=== PATIENT | male | born 1960 | race Caucasian/White ===

== ENCOUNTER → 2023-07-16 | Outpatient (CLI) | payer MEDICARE, OTHER ==
--- NOTE | 2023-07-16 13:34 | CT ---
EXAMINATION TYPE: CT chest wo con CT DLP: 548 mGycm, Automated exposure control for dose reduction was used. DATE OF EXAM: 07/16/2023 1:22 PM COMPARISON: None CLINICAL INDICATION:Male, 62 years old with history of I50.22 CHF; PHH, CHF TECHNIQUE: Multiple axial images were obtained through the chest. Sagittal and coronal reformats were created for review. Contrast used: mL of (None if empty) Oral contrast used: (None if empty) FINDINGS: LUNGS/ PLEURA: Bilateral pleural effusions no focal consolidation or pneumothorax. Atelectasis in the right middle lobe likely secondary to cardiomegaly and pleural effusions. Calcified body in the pleu ral space right lung. AIRWAY: Patent and unremarkable. HEART: The heart is mildly enlarged for size. MEDIASTINUM: No gross evidence of adenopathy. VASCULATURE: No aortic aneurysm. MUSCULOSKELETAL: No acute osseous abnormalities SOFT TISSUES/LYMPH NODES: Anasarca of the soft tissues. LOWER NECK: No significant findings. UPPER ABDOMEN: No significant findings. IMPRESSION: Anasarca, moderate right and small left pleural effusions with cardiomegaly. Correlate with serum BNP for congestive heart failure.
--- NOTE | 2023-07-16 14:49 | US ---
EXAMINATION TYPE: Pre-Operative Non-Invasive Evaluation of the hand for Potential Radial Artery Roberto villeda, Measurements only DATE OF EXAM: 07/16/2023 2:00 PM CLINICAL INDICATION: Male, 62 years old with history of I25.10 CAD, I50.22 CHF; Pre op cardiac surger y SIDE PERFORMED: Left TECHNIQUE: Radial artery is measured utilizing real time linear array sonography. Duplex Findings: Radial Artery: Color flow seen Measurements in mm, transverse view: Left Radial: Proximal: 2.5 x 2.3 mm Mid: 2.1 x 2.1 mm Distal: 2.2 x 1.9 mm IMPRESSION: 1. Bilateral GSV measurements listed above. 2. Performing surgeon to determine viability as conduit.
--- NOTE | 2023-07-16 14:50 | US ---
EXAMINATION TYPE: US carotid duplex BILAT DATE OF EXAM: 07/16/2023 COMPARISON: NONE CLINICAL INDICATION: Male, 62 years old with history of I25.10 CAD, I50.22 CHF; Pre op cardiac surger y TECHNIQUE: Carotid duplex ultrasound examination. Indirect Doppler criteria was utilized. FINDINGS: EXAM MEASUREMENTS: RIGHT: Peak Systolic Velocity (PSV) cm/sec ----- Right CCA: 66.4 ----- Right ICA: 72.9 ----- Right ECA: 130.2 ICA/CCA ratio: 1.1 RIGHT: End Diastole cm/sec ----- Right CCA: 13.4 ----- Right ICA: 23.2 ----- Right ECA: 10.7 LEFT: Peak Systolic Velocity (PSV) cm/sec ----- Left CCA: 57.6 ----- Left ICA: 66.3 ----- Left ECA: 85.2 ICA/CCA ratio: 1.2 LEFT: End Diastole cm/sec ----- Left CCA: 14.3 ----- Left ICA: 27.0 ----- Left ECA: 6.6 VERTEBRALS (direction of flow): Right Vertebral: Antegrade Left Vertebral: Antegrade Rhythm: Normal No significant stenosis . Mild atherosclerotic plaque. IMPRESSION: No significant hemodynamic stenosis. Criteria for Assigning % of Stenosis / Diameter reduction (Estimation based on the indirect measurements of the internal carotid artery velocities (ICA PSV). 1. Normal (no stenosis)=ICA PSV < 125 cm/s: ratio < 2.0: ICA EDV<40 cm/s. 2. Less than 50% stenosis=ICA PSV < 125 cm/s: ratio < 2.0: ICA EDV<40 cm/s. 3. 50 to 69% stenosis=ICA PSV of 125 to 230 cm/s: ration 2.0 ? 4.0: ICA EDV 40-100 cm/s. 4. Greater than 70% stenosis to near occlusion= ICA PSV > 230 cm/s: ratio > 4.0: ICA EDV > 100 cm/s. 5. Near occlusion= ICA PSV velocities may be low or undetectable: variable ratio and ICA EDV. 6. Total occlusion=unable to detect flow.
--- NOTE | 2023-07-16 15:49 | US ---
EXAMINATION TYPE: US vein mapping BILAT DATE OF EXAM: 07/16/2023 2:13 PM COMPARISON: NONE CLINICAL INDICATION: Male, 62 years old with history of I25.10 CAD,I50.22 CHF; Pre op cardiac surgery SIDE PERFORMED: Bilateral TECHNIQUE: Lower extremity saphenous vein is examined and measured utilizing real time linear array sonography. DUPLEX FINDINGS: Greater Saphenous: Color flow seen Lesser Saphenous: Color flow seen Measurements in mm: Right Greater Saphenous: Groin: 9.6 x 8.5 mm High Thigh: 7.1 x 6.7 mm Mid Thigh: 5.1 x 4.1 mm Above Knee: 4.3 x 3.7 mm Knee: 4.8 x 3.5 mm Below Knee: 4.4 x 3.7 mm Mid Calf: 5.2 x 3.4 mm At Ankle: 4.0 x 3.5 mm Left Greater Saphenous: Groin: 7.5 x 6.2 mm High Thigh: 6.3 x 6.3 mm Mid Thigh: 4.9 x 3.7 mm Above Knee: 3.2 x 3.2 mm Knee: 4.6 x 3.6 mm Below Knee: 3.9 x 3.1 mm Mid Calf: 3.8 x 2.9 mm At Ankle: 2.6 x 2.5 mm IMPRESSION: 1. Bilateral GSV measurements listed above. 2. Performing surgeon to determine viability as conduit.
--- NOTE | 2023-07-16 17:59 | CA ---
Transthoracic Echo Report Name: Wes Burgess Age: 62 Gender: M : 1960 Exam Date: 07/16/2023 14:35 Exam Location: [facility] Ht (in): 61 Wt (lb): 176 Ordering Physician: Everett Weller MD Attending/Referring Phys: Core Winding Operator Irasema Ernst RDCS Procedure CPT: Indications: I25.10 CAD Cardiac Hx: CAD Technical Quality: Fair Contrast 1: Total Dose (mL): Contrast 2: Total Dose (mL): MEASUREMENTS (Male / Female) Normal Values 2D ECHO LV Diastolic Diameter PLAX 5.0 cm 4.2 - 5.9 / 3.9 - 5.3 cm LV Systolic Diameter PLAX 4.5 cm IVS Diastolic Thickness 1.3 cm 0.6 - 1.0 / 0.6 - 0.9 cm LVPW Diastolic Thickness 1.3 cm 0.6 - 1.0 / 0.6 - 0.9 cm LV Relative Wall Thickness 0.5 RV Internal Dim ED PLAX 3.3 cm LA Systolic Diameter LX 3.7 cm 3.0 - 4.0 / 2.7 - 3.8 cm LV Diastolic Volume MOD BP 124.0 cm??? 67 - 155 / 56 - 104 cm??? LV Systolic Volume MOD BP 85.1 cm??? 22 - 58 / 19 - 49 cm??? LV Ejection Fraction MOD BP 31.4 % >= 55 % LV Cardiac Index MOD BP 1955.3 cm???/min???m??? LV Diastolic Volume MOD 4C 129.6 cm??? LV Systolic Volume MOD 4C 85.5 cm??? LV Ejection Fraction MOD 4C 34.1 % LV Cardiac Index MOD 4C 2221.1 cm???/min???m??? LV Diastolic Length 4C 8.5 cm LV Systolic Length 4C 7.6 cm LV Diastolic Volume MOD 2C 138.4 cm??? LV Systolic Volume MOD 2C 97.3 cm??? LV Ejection Fraction MOD 2C 29.7 % LV Cardiac Index MOD 2C 2066.1 cm???/min???m??? LV Diastolic Length 2C 7.5 cm LV Systolic Length 2C 7.4 cm LA Volume 61.9 cm??? 18 - 58 / 22 - 52 cm??? LA Volume Index 32.8 cm???/m??? 16 - 28 cm???/m??? M-MODE Aortic Root Diameter MM 3.3 cm MV E Point Septal Separation 2.1 cm AV Cusp Separation MM 2.0 cm DOPPLER AV Peak Velocity 93.0 cm/s AV Peak Gradient 3.5 mmHg MV Area PHT 5.7 cm??? MR Peak Velocity 403.9 cm/s MR Peak Gradient 65.3 mmHg Mitral E Point Velocity 85.8 cm/s Mitral A Point Velocity 51.3 cm/s Mitral E to A Ratio 1.7 MV Deceleration Time 132.3 ms MV E' Velocity 4.7 cm/s Mitral E to MV E' Ratio 18.4 TR Peak Velocity 358.5 cm/s TR Peak Gradient 51.4 mmHg Right Ventricular Systolic Press 62.0 mmHg FINDINGS Left Ventricle Left ventricular ejection fraction is estimated at 30-35 %. Mildly increased septal wall thickness. Severely increased left ventricular systolic volume. Severe hypokinesis of the apex, anterior wall and anterolateral wall. Right Ventricle Right ventricular dilatation. Severe pulmonary hypertension. Right ventricular systolic pressure estimated at 62 mm hg. Right Atrium Normal right atrial size. Left Atrium Mildly increased left atrial volume. Mildly increased left atrial area. Mitral Valve Structurally normal mitral valve. Mild to moderate mitral regurgitation. Mildly thickened leaflets Aortic Valve Trileaflet aortic valve.no aortic valve stenosis or regurgitation. Tricuspid Valve Structurally normal tricuspid valve. Moderate tricuspid regurgitation. Pulmonic Valve Structurally normal pulmonic valve. Mild pulmonic regurgitation. Pericardium No pericardial effusion. Aorta Normal size aortic root and proximal ascending aorta. CONCLUSIONS 1. Severely impaired left ventricle systolic function with segmental wall motion abnormality 2. Mild to moderate mitral was moderate tricuspid regurgitation and severe pulmonary hypertension Previewed by: Dr. Tutu Gallegos MD (Electronically Signed) Final Date: 16 July 2023 17:58
--- NOTE | 2023-07-17 14:03 | US ---
EXAMINATION TYPE: US arterial LE single level DATE OF EXAM: 07/16/2023 2:52 PM CLINICAL INDICATION: Male, 62 years old with history of I25.10 CAD, I50.22 CHF; History of: Smoker: Hypertension: Diabetic: Hyperlipidemia: TIA/CVA: Previous Vascular Surgery: CAD: VT: Vascular Ulcers: Claudication: Gangrene: Doppler Waveforms: Right: Multiphasic Left: Multiphasic Right Brachial Pressure: 128 Left Brachial Pressure: 124 Ankle-Brachial Indices: Right: 0.95 Left: 0.97 IMPRESSION: Normal FAIZAN.
== END | disposition home or self-care (01) ==
LOC: RADCTMAIN 12:54
PROVIDERS: ATTEND Thoracic Surgery (Cardiothoracic Vascular Surgery)
DX: Z01.810 Encounter for preprocedural cardiovascular examination (principal); I51.7 Cardiomegaly; J90 Pleural effusion, not elsewhere classified; I25.10 Atherosclerotic heart disease of native coronary artery without angina pectoris; I50.22 Chronic systolic (congestive) heart failure
CPT/HCPCS: 71250; 93306; 93880; 93922; 93970

== ENCOUNTER 2023-09-01 08:49 | Inpatient (IN) | payer MEDICARE, OTHER ==
[~2023-09-01 08:49] MED LIST: ALPRAZolam 0.25 MG TAB PO PRN; ALPRAZolam 0.5 MG TAB PO PRN; ASPIRIN 325 MG TAB PO STA; HEPARIN SODIUM,PORCINE (1 ML) 2,500 UNIT in SODIUM CHLORIDE 0.9% 250 ML IRRIGATION PRN; HEPARIN SODIUM,PORCINE 10,000 UNIT in SODIUM CHLORIDE 0.9% 1,000 ML IRRIGATION PRN; NITROGLYCERIN SL TABS 0.4 MG TAB SUBLINGUAL PRN
[2023-09-01 09:43] LABS: Glucose,Whole Blood 178 mg/dL (70-110)
[2023-09-01] MEDS: SODIUM CHLORIDE 0.9% 1,000 ML in EMPTY BAG 1 BAG IV SCH (10:11)
[2023-09-01 10:40] LABS: Basophils # (A) 0.1 k/uL (0-0.2); Basophils % (A) 1 %; Eosinophils # (A) 0.2 k/uL (0-0.7); Eosinophils % (A) 2 %; HCT 36.5 % (39.0-53.0); HGB 11.8 gm/dL (13.0-17.5); Lymphocytes # (A) 1.4 k/uL (1.0-4.8); Lymphocytes % (A) 16 %; MCH 29.8 pg (25.0-35.0); MCHC 32.5 g/dL (31.0-37.0); MCV 91.7 fL (80.0-100.0); Mean Platelet Volume 8.6; Monocytes # (A) 0.7 k/uL (0-1.0); Monocytes % (A) 8 %; Neutrophils # (A) 6.4 k/uL (1.3-7.7); Neutrophils % (A) 71 %; Platelet Count 206 k/uL (150-450); RBC 3.98 m/uL (4.30-5.90); RDW 14.2 % (11.5-15.5)
[2023-09-01 10:48] LABS: Prothrombin Time 10.9 sec (10.0-12.5)
[2023-09-01 10:54] LABS: ALT 13 U/L (4-49); AST 21 U/L (17-59); African American GFR (CKD) >90 (>60 ml/min/1.73 sqM); Albumin 4.3 g/dL (3.5-5.0); Alkaline Phosphatase 89 U/L (38-126); Anion Gap 13 mmol/L; Blood Urea Nitrogen 27 mg/dL (9-20); Calcium 9.2 mg/dL (8.4-10.2); Carbon Dioxide 22 mmol/L (22-30); Chloride 103 mmol/L (98-107); Glucose 171 mg/dL (74-99); Magnesium 2.3 mg/dL (1.6-2.3); Non-African American GFR(CKD) 78 (>60 ml/min/1.73 sqM); Potassium 3.9 mmol/L (3.5-5.1); Sodium 138 mmol/L (137-145); Total Bilirubin 1.1 mg/dL (0.2-1.3)
--- NOTE | 2023-09-01 10:56 | P.GSCN ---
History of Present Illness Consult date: 09/01/23 Reason for Consult: Multivessel coronary artery disease Requesting physician: Theodore Monreal History of present illness: This is a 63-year-old gentleman who was following with Dr. Hartman for his primary care, although has been trying to find a new family practitioner. He also follows with Dr. Monreal for his cardiology care. He has a past medical history significant for coronary artery disease, chronic systolic congestive heart failure with an ejection fraction of 30 to 35%, hypertension, hyperlipidemia, diabetes mellitus type 2, obesity with a BMI of 32.7 kg/m, bipolar disorder, cardiomyopathy, developmentally delayed, and a remote history of nicotine dependence in which she quit smoking over 20 years ago. In April 2023 the patient presented to [facility] due to complaints of shortness of breath and lower extremity edema. The patient denies any recent fever, chills, nausea, vomiting, headache, hemoptysis, hematemesis, constipation, diarrhea, dysuria, palpitations, chest pain/pressure, presyncope or syncope. During his stay at [facility] he had an elevated BNP of 17,000, and his hemoglobin A1c was 10.9. During his hospitalization in April 2023 he underwent a heart catheterization which revealed a 70% left main stenosis, a 60 to 70% stenosis to his proximal left anterior descending coronary artery, a 30% stenosis to his circumflex coronary artery, a 60 to 70% stenosis to his obtuse marginal #1 coronary artery and a 50 to 60% stenosis to his mid right coronary artery. Subsequently, in July 2023 the patient underwent a repeat transthoracic 2D echocardiogram which demonstrated a left ventricular ejection fraction estimated at 30 to 35%, severe hypokinesis of the apex, anterior wall and anterolateral wall, severe pulmonary hypertension, mild to moderate mitral valve regurgitation, no aortic valve stenosis or regurgitation, moderate tricuspid valve regurgitation, and mild pulmonic valve regurgitation. Due to the patient's recent symptoms of shortness of breath, and findings on his cardiac catheterization and transthoracic 2D echocardiogram, a consult was placed to Dr. Everett Weller from cardiothoracic surgery for further evaluation and treatment recommendations. The patient met with Dr. Weller with his brother present, the findings on the cardiac catheterization were discussed, treatment options were discussed and recommendations for myocardial vascularization surgery, possible tricuspid valve repair were discussed. Risks and benefits of the surgery were discussed including the STS risk score and knowing and understanding the risks the patient wished to proceed with the surgical option. The patient was being admitted to the hospital 24 hours prior to surgery for a right heart catheterization and placement of intra-aortic bal loon pump by cardiology service. A 5 m walk test was completed with the patient this morning with time 1 showing 4.20 seconds, time 2: 4.80 seconds and time 3: 3.77 seconds. The patient denies any shortness of breath or chest pain/chest pressure with the walk. Review of Systems A 14 point review of systems was completed and was negative except as mentioned in the HPI. Past Medical History Past Medical History: Coronary Artery Disease (CAD), Heart Failure, Diabetes Mellitus, Hyperlipidemia, Hypertension Additional Past Medical History / Comment(s): chronic systolic heart failure,cardiomyapathy,rush cataracts History of Any Multi-Drug Resistant Organisms: None Reported Past Surgical History: Heart Catheterization Additional Past Surgical History / Comment(s): Previous foot and wrist surgery Past Anesthesia/Blood Transfusion Reactions: No Reported Reaction Additional Past Anesthesia/Blood Transfusion Reaction / Comm: no known hx blood transfusion Past Psychological History: Anxiety, Bipolar Additional Psychological History / Comment(s): Developmentally delayed Smoking Status: Former smoker (Quit smoking over 20 years ago) Past Alcohol Use History: Rare Past Drug Use History: None Reported - Past Family History Mother Family Medical History: COPD, Pneumonia Brother(s) Family Medical History: COPD Medications and Allergies Home Medications Medication Instructions Recorded Confirmed Type DULoxetine HCL [Cymbalta] 60 mg PO DAILY 08/28/23 08/28/23 History Empagliflozin [Jardiance] 10 mg PO DAILY 08/28/23 08/28/23 History Furosemide [Lasix] 40 mg PO BID 08/28/23 08/28/23 History Glimepiride [Amaryl] 2 mg PO DAILY 08/28/23 08/28/23 History Losartan [Cozaar] 25 mg PO DAILY 08/28/23 08/28/23 History Metoprolol Succinate (ER) [Toprol 50 mg PO DAILY 08/28/23 08/28/23 History Xl] Rosuvastatin Calcium [Crestor] 40 mg PO DAILY 08/28/23 08/28/23 History Spironolactone [Aldactone] 12.5 mg PO DAILY 08/28/23 08/28/23 History busPIRone HCL 15 mg PO BID 08/28/23 08/28/23 History Allergies Allergy/AdvReac Type Severity Reaction Status Date / Time ibuprofen Allergy Unknown Verified 08/28/23 10:06 Surgical - Exam - General well developed, well nourished, no distress, no pain, obese - Eyes PERRL, normal ocular movement, no pale, no icteric - ENT normal pinna, normal nares, normal mucosa, no hearing loss, no congestion - Neck Neck is supple, no lymphadenopathy. no masses, no bruits, trachea midline, no venous distension - Respiratory Lung sounds essentially clear throughout. No wheezes, rhonchi or crackles. Respirations are symmetrical and nonlabored. - Cardiovascular Regular rhythm and rate. S1 and S2 present, negative for S3, gallop or murmur. +1 edema to his bilateral lower extremities. Peripheral pulses palpable. - Abdomen Abdomen is soft, nontender nondistended. Active bowel sounds present all 4 abdominal quadrants. No guarding or rigidity. No organomegaly appreciated. - Genitourinary Deferred - Rectum Deferred - Integumentary Skin is warm and dry. No clubbing or cyanosis is present. no rash, no growths, no abnormal pigmentation - Neurologic Cranial nerves II through XII intact. No focal deficits. normal coordination, normal sensation - Musculoskeletal Moves all 4 extremities with equal strength bilateral. normal gait, normal posture - Psychiatric oriented to time, oriented to person, oriented to place, speech is normal, memory intact Results - Labs 09/01/23 10:07 09/01/23 18:00 Abnormal Lab Results - Last 24 Hours (Table) 09/01/23 Range/Units 09:41 POC Glucose (mg/dL) 178 H (70-110) mg/dL Assessment and Plan Assessment: Multivessel coronary artery disease Chronic systolic congestive heart failure with an ejection fraction of 30 to 35% Cardiomyopathy Hypertension Hyperlipidemia Diabetes mellitus type 2, with hemoglobin A1c 10.9 in April 2023 Peripheral arterial disease, recent ABIs to right 0.95 and left 0.97 Bilateral pleural effusions on July 16, 2023 CT scan of the chest Obesity with a BMI of 32.7 kg/m Bipolar disorder Developmentally delayed Anxiety Remote history of nicotine dependence quit smoking over 20 years ago, with an FEV1 of 55% of predicted value and a base volume of 1.43 Plan: The patient was seen and examined at his bedside on the third floor cardiac stepdown unit, his brother is present at his bedside. His chart and diagnostics reviewed. He is scheduled for a right heart catheterization and placement of intra aortic balloon pump today by cardiology. He is scheduled for myocardial vascularization surgery tomorrow September 02, 2023 with left internal mammary artery, endoscopic left radial artery harvest, endoscopic greater saphenous vein harvest, intraoperative transesophageal echocardiogram, exclusion left atrial appendage and possible tricuspid valve repair. The surgery will be completed by Dr. Everett Weller from cardiothoracic surgery. Medical management and other comorbidities per primary care service. Dr. Tinsley has been consulted for ICU and pulmonary/critical care medicine management. A 5 m walk test was completed with the patient this morning with time 1: 4.20 seconds, time 2: 4.80 seconds and time 3: 3.77 seconds. The patient will be n.p.o. after midnight. More recommendations to follow based on patient's clinical course. Preoperative testing has been ordered and preoperative teaching has been completed with the patient and his brother present at his bedside. I have personally seen and examined the patient, performed the documentation and the assessment and plan as written. Number of minutes spent on the visit: 30. SRINATH Byrne Attending Addendum: Pt seen and evaluated with PHYSICIANS AND SURGEONS above. Plan for IABP insertion, right heart cath and CABG tomorrow. I spent 45 minutes reviewing the data and discussing the plan of care with the team and the patient. Time with Patient: Greater than 30
[2023-09-01] MEDS: IV FLUID CONTINUATION 900 ML IV ONE (11:19)
[2023-09-01] MEDS ORDERED: HEPARIN SODIUM 1,000 UN/ML (10ML VL) ONE (11:25)
[2023-09-01] MEDS ORDERED: fentaNYL (PF) 50 MCG/ML 2 ML AMP ONE (11:25)
[2023-09-01] MEDS ORDERED: LIDOCAINE 1% INJ 10MG/ML (20 ML MDV) ONE ×3 (11:25→12:01)
[2023-09-01] MEDS: fentaNYL (PF) 50 MCG/ML 2 ML AMP IVP ONE ×2 (11:38→12:19)
[2023-09-01] MEDS: MIDAZOLAM 2 MG/2 ML VIAL IVP ONE ×2 (11:40→12:19)
[2023-09-01] MEDS ORDERED: ASPIRIN 81 MG ONE (11:42)
[2023-09-01] MEDS: ASPIRIN 81 MG PO ONE (11:44)
[2023-09-01] MEDS: LIDOCAINE 1% INJ 10MG/ML (5 ML VIAL-PF) SQ ONE (11:45)
[2023-09-01] MEDS: LIDOCAINE 1% INJ 10MG/ML (20 ML MDV) SQ ONE (12:01)
[2023-09-01] MEDS: HEPARIN SODIUM 1,000 UN/ML (10ML VL) IVP ONE (12:15)
[2023-09-01 12:28] LABS: O2 Sat Blood Gas 76.2 %
[2023-09-01 12:29] LABS: O2 Sat Blood Gas 99.7 %
[2023-09-01 12:30] LABS: O2 Sat Blood Gas 69.5 %
[2023-09-01 13:14] LABS: Glucose,Whole Blood 153 mg/dL (70-110)
[2023-09-01] MEDS: MD COMMUNICATION TO PHARMACY 1 EACH MISC PO ONE ×5 (14:15)
[2023-09-01] MEDS: SODIUM CHLORIDE 0.9% 500 ML 500 ML IV ONE (15:37)
[2023-09-01 16:09] LABS: Appearance,Urine Clear (Clear); Bilirubin,Urine Negative (Negative); Blood,Urine Negative (Negative); Color,Urine Colorless; Glucose,Urine (UA) 4+ (Negative); Ketones,Urine Negative (Negative); Leukocyte Esterase,Urine Negative (Negative); Nitrite,Urine Negative (Negative); Protein,Urine Trace (Negative); Specific Gravity,Urine 1.017 (1.001-1.035); Urobilinogen,Urine <2.0 mg/dL (<2.0)
[2023-09-01] MEDS: NOREPINEPHRINE 4 MG in SODIUM CHLORIDE 0.9% 250 ML IV SCH (17:00)
--- NOTE | 2023-09-01 17:41 | XR ---
EXAMINATION TYPE: XR chest 1V confirm line plcmt DATE OF EXAM: 09/01/2023 5:32 PM CLINICAL INDICATION:Male, 63 years old with history of confirm swan; PHH COMPARISON: CT chest 07/16/2023 TECHNIQUE: XR chest 1V confirm line plcmt Frontal view of the chest. FINDINGS: Lungs/Pleura: Hazy right lung base airspace opacities. No evidence of pneumothorax. Pulmonary vascularity: Unremarkable. Heart/mediastinum: Cardiomediastinal silhouette is unremarkable. Musculoskeletal: No acute osseous pathology. Lines/Tubes: Right IJ approach [place] catheter placement seen with appropriate course and distal tip noted medial to the right hilar margin. IMPRESSION: 1. Appropriately positioned [place] catheter. 2. Hazy right lung base opacity, may represent layering effusion vs. developing infectious/inflammato ry process.
[2023-09-01 18:00] LABS: Glucose,Whole Blood 220 mg/dL (70-110)
[2023-09-01] MEDS ORDERED: Potassium Replacement Protocol 1 EACH MISC MISCELLANE PRN (18:40)
[2023-09-01] MEDS: POTASSIUM CHLORIDE 10 MEQ in WATER FOR INJECTION 1 100ML.BAG IVPB SCH (19:03)
--- NOTE | 2023-09-01 20:47 | P.CARDCATH ---
Description of Procedure: PROCEDURES PERFORMED: Right heart catheterization, ultrasound guided access, placement of intraaortic balloon pump from right femoral access INDICATION: Cardiomyopathy, CAD with planned CABG 09/01 CONSENT:I have discussed the risks, benefits and alternative therapies for the above-mentioned procedure and for both sedation/analgesia as well as necessary blood product administration, if indicated, as they pertain to this patient. The patient has indicated understanding and acceptance of the risks and procedures discussed. PROCEDURE: After the risks, benefits and alternatives of the above mentioned procedure explained in detail with the patient, informed consent was obtained. Patient was taken to the catheterization lab and prepped and draped in usual fashion. Ultrasound guidance was used to assess for access. 1% lidocaine was used to anesthetize the right brachial area. Patient had good caliber brachial vein and multiple attempts made at cannulating however rolling vein and eventually aborted brachial venous access and decision made to perform femoral access. 1% lidocaine was used to anesthetize the right femoral area. A 6- Bulgarian sheath was placed in the right femoral artery as well as additional 6 Fr sheath in the right femoral vein using modified Seldinger technique and ultrasound guidance. A 6Fr [place] Isabell catheter was inserted into the RA, RV, PA and PCWP and pressure measurements and oxygen saturations were measured. Thermodilution was performed. The [place] Is[place] catheter was removed and the sheath left in place for future access. The Fr sheath was upgraded to the 8Fr IABP sheath. Next a IABP was inserted to the level of just past the left subclavian artery and was turned on. The IABP and sheaths were sutured in place. The patient tolerated the procedure well. Patient was transported back to the post catheterization holding area in stable condition. Conscious Sedation: Patient was monitored under the direct supervision of myself for conscious sedation using Versed and fentanyl for a total duration of 67 minutes HEMODYNAMICS: AO: 132/76 PCWP: 25 PA: 57/26 RV: 56/15 RA: 14 Right femoral artery oxygen saturation: 100% PA oxygen saturation: 76% RA oxygen saturation: 70% CO by KYMBERLY: 5.2 L/min CI by KYMBERLY: 2.9 L/min/m2 CO by thermodilution: 5.2 L/min CI by thermodilution: 2.9 L/min/m2 FINAL IMPRESSION: 1. S/p successful placement of intraaortic balloon pump from right femoral access 2. Elevated left and right sided filling pressures 3. Normal CO/CI 4. Pulmonary hypertension predominantly post capillary, WHO group 2 PLAN: Continue IABP in preparation for CABG
[2023-09-01 21:26] LABS: Glucose,Whole Blood 277 mg/dL (70-110)
[2023-09-01] MEDS: CHLORHEXIDINE GLUCONATE 15 ML CUP MUCOUS MEM STA (21:48)
[2023-09-01] MEDS: MUPIROCIN 2% OINT 22 GM TUBE NASAL SCH (21:48)
[2023-09-01] MEDS: INSULIN REGULAR 100 UNIT in SODIUM CHLORIDE 0.9% 100 ML IV SCH (22:04)
[2023-09-01 23:16] LABS: Glucose,Whole Blood 258 mg/dL (70-110)
[2023-09-02 00:01] LABS: Glucose,Whole Blood 197 mg/dL (70-110)
[2023-09-02 01:11] LABS: Glucose,Whole Blood 115 mg/dL (70-110)
[2023-09-02 02:08] LABS: Glucose,Whole Blood 108 mg/dL (70-110)
[2023-09-02 03:06] LABS: Glucose,Whole Blood 121 mg/dL (70-110)
[2023-09-02 04:02] LABS: Glucose,Whole Blood 111 mg/dL (70-110)
[2023-09-02] MEDS: ASPIRIN 81 MG PO ONE (04:51)
[2023-09-02] MEDS: CHLORHEXIDINE GLUCONATE 15 ML CUP MUCOUS MEM ONE (04:51)
[2023-09-02] MEDS: ATORVASTATIN 10 MG TAB PO ONE (04:51)
[2023-09-02] MEDS ORDERED: NOREPINEPHRINE 4 MG in SODIUM CHLORIDE 0.9% 250 ML IV SCH (05:00)
[2023-09-02 05:13] LABS: Glucose,Whole Blood 129 mg/dL (70-110)
[2023-09-02 06:01] LABS: Glucose,Whole Blood 106 mg/dL (70-110)
[2023-09-02 06:55] LABS: Glucose,Whole Blood 120 mg/dL (70-110)
--- NOTE | 2023-09-02 07:17 | P.ANPRN ---
Procedure Note - Anesthesia - Invasive Line Right Arterial Line Time Out Performed: Yes Date of Procedure: 09/01/23 Time of Procedure: 16:30 Preparation: Sterile Prep, Sterile Dressing Arterial Line Location: Radial Ultrasound Used: Yes Purpose - Visualization and Identification of Vasculature: Yes Image Stored and Saved: No (done in icu) Narrative: Invasive line placement per sterile protocol utilized.
--- NOTE | 2023-09-02 07:18 | P.ANPRN ---
Procedure Note - Anesthesia - Invasive Line Right Central Line Time Out Performed: Yes Date of Procedure: 09/01/23 Time of Procedure: 17:10 Preparation: Sterile Prep, Sterile Dressing Central Line Location: Internal Jugular Ultrasound Used: No Purpose - Visualization and Identification of Vasculature: No Image Stored and Saved: No (done in icu) Narrative: Invasive line placement per sterile protocol utilized.
--- NOTE | 2023-09-02 07:19 | P.ANPRN ---
Procedure Note - Anesthesia - Invasive Line Right [place] Isabell Time Out Performed: Yes Date of Procedure: 09/01/23 Time of Procedure: 17:12 Preparation: Sterile Prep, Sterile Dressing Central Line Location: Internal Jugular Ultrasound Used: No Purpose - Visualization and Identification of Vasculature: No Image Stored and Saved: No (done in icu) Narrative: Invasive line placement per sterile protocol utilized.
[2023-09-02 07:30] LABS: Chol/HDL Ratio 3.45 Ratio; LDL Cholesterol,Calculated 60.3 mg/dL (0.0-131.0)
[2023-09-02 07:38] LABS: Hepatitis A Antibody IgM Nonreactive (Nonreactive); Hepatitis B Core IgM Nonreactive (Nonreactive); Hepatitis B Surface Antigen Nonreactive (Nonreactive); Hepatitis C IgG Antibody Nonreactive (Nonreactive)
[2023-09-02] MEDS ORDERED: PROTAMINE SULFATE 10 MG/ML 25 ML VIAL IV ONE (07:55)
[2023-09-02] MEDS ORDERED: PHENYLEPHRINE 10 MG/ML VIAL ONE (07:55)
[2023-09-02] MEDS ORDERED: PROPOFOL 10 MG/ML 20 ML VIAL IV ONE (07:55)
[2023-09-02] MEDS ORDERED: fentaNYL (PF) 50 MCG/ML 50 ML VIAL ONE (07:55)
[2023-09-02] MEDS ORDERED: HEPARIN SODIUM,PORCINE 10,000 UNIT/ML 1 ML VIAL ONE (07:55)
[2023-09-02] MEDS ORDERED: CALCIUM CHLORIDE 100 MG/ML 10 ML SYRINGE ONE (07:55)
[2023-09-02] MEDS ORDERED: MIDAZOLAM HCL 10 MG/10 ML VIAL ONE (07:55)
[2023-09-02] MEDS ORDERED: ePHEDrine 50 MG/ML 1 ML VIAL ONE (07:55)
[2023-09-02] MEDS ORDERED: SUCCINYLCHOLINE CHLORIDE 200 MG/10 ML VIAL IV ONE (07:55)
[2023-09-02] MEDS ORDERED: ALBUMIN HUMAN 5% (25gm) 500 ML VIAL IVPB ONE (07:55)
[2023-09-02] MEDS ORDERED: VECURONIUM 10 MG VIAL IV ONE (07:55)
[2023-09-02 07:56] LABS: Glucose,Whole Blood 108 mg/dL (70-110)
[2023-09-02] MEDS: ALBUMIN HUMAN 25% 50 ML in EMPTY BAG 1 BAG IVPB ONE (08:03)
[2023-09-02] MEDS: ALBUMIN HUMAN 5% 500 ML in EMPTY BAG 1 BAG IVPB ONE ×6 (08:03→08:04)
[2023-09-02] MEDS: CLEVIDIPINE BUTYRATE 25 MG in EMPTY BAG 1 BAG IV SCH (08:04)
[2023-09-02] MEDS: DILTIAZEM 125 MG in SODIUM CHLORIDE 0.9% 100 ML IV SCH (08:04)
[2023-09-02] MEDS: CALCIUM CHLORIDE 100 MG/ML 10 ML SYRINGE IVP ONE (08:04)
[2023-09-02] MEDS: ELECTROLYTE-A SOLUTION 1,000 ML with POTASSIUM CHLORIDE 40 MEQ, MAGNESIUM SULFATE 16 ME... IV ONE (08:05)
[2023-09-02] MEDS: PAPAVERINE 360 MG in SODIUM CHLORIDE 0.9% 90 ML IV ONE ×2 (08:05→09:15)
[2023-09-02] MEDS: HEPARIN SODIUM,PORCINE (1 ML) 5,000 UNIT in SODIUM CHLORIDE 0.9% 500 ML 500 ML IV ONE (08:05)
[2023-09-02] MEDS: ELECTROLYTE-A SOLUTION 1,000 ML with POTASSIUM CHLORIDE 100 MEQ, MAGNESIUM SULFATE 16 M... IV ONE (08:05)
[2023-09-02] MEDS: HEPARIN SODIUM 1,000 UN/ML (10ML VL) IV ONE (08:05)
[2023-09-02] MEDS: PHENYLEPHRINE 40 MG in SODIUM CHLORIDE 0.9% 250 ML IV ONE (08:06)
[2023-09-02] MEDS: SODIUM BICARB 8.4% 50 ML SYR (1 MEQ/ML) IV ONE (08:06)
[2023-09-02] MEDS: PROTAMINE SULFATE 10 MG/ML 25 ML VIAL IV ONE (08:06)
[2023-09-02] MEDS: TRANEXAMIC ACID 2,000 MG in SODIUM CHLORIDE 0.9% 80 ML IV ONE (08:06)
[2023-09-02] MEDS: PROTAMINE SULFATE 250 MG in EMPTY BAG 1 BAG IV ONE (08:06)
[2023-09-02] MEDS: PHENYLEPHRINE 10 MG/ML VIAL IV ONE (08:06)
[2023-09-02] MEDS: MANNITOL 25% 12.5 GM/50 ML VIAL IV ONE ×2 (08:21)
[2023-09-02] MEDS: METOPROLOL TARTRATE 12.5 MG TAB PO ONE (08:21)
[2023-09-02] MEDS: MAGNESIUM SULFATE 16.24 MEQ in EMPTY SYRINGE 1 SYR IV ONE (08:21)
[2023-09-02] MEDS: NITROGLYCERIN-D5W PMX 50 MG in DEXTROSE/WATER 1 250ML.BAG IV SCH (08:22)
[2023-09-02] MEDS: NITROGLYCERIN-D5W PMX 25 MG/250 ML BTL IV ONE (08:22)
[2023-09-02 08:36] LABS: ABG Base Excess -3.6 mmol/L; ABG Glucose Whole Blood 100 mg/dL (75-99); ABG HCO3 21 mmol/L (21-25); ABG Hematocrit 33 % (34.0-46.0); ABG Ionized Calcium 4.7 mg/dL (4.5-5.3); ABG Lactic Acid Whole Blood 0.8 mmol/L (0.5-1.6); ABG PCO2 34 mmHg (35-45); ABG PO2 174 mmHg (83-108); ABG Potassium Whole Blood 3.9 mmol/L (3.4-4.5); ABG Sodium Whole Blood 139 mmol/L (135-146); Allen Test Performed? Yes
[2023-09-02] MEDS: SODIUM CHLORIDE 0.9% 500 ML 500 ML with HEPARIN SODIUM,PORCINE (1 ML) 5,000 UNIT IV ONE (09:14)
[2023-09-02] MEDS: ceFAZolin 1,000 MG in SODIUM CHLORIDE 0.9% 1,000 ML IRRIGATION ONE (09:15)
[2023-09-02 09:30] LABS: ABG Glucose Whole Blood 112 mg/dL (75-99); ABG HCO3 22 mmol/L (21-25); ABG Hematocrit 32 % (34.0-46.0); ABG Ionized Calcium 4.7 mg/dL (4.5-5.3); ABG Lactic Acid Whole Blood 0.7 mmol/L (0.5-1.6); ABG Oxygen Saturation 99.1 % (94-97); ABG PCO2 42 mmHg (35-45); ABG PH 7.33 (7.35-7.45); ABG PO2 169 mmHg (83-108); ABG Potassium Whole Blood 3.8 mmol/L (3.4-4.5); ABG Sodium Whole Blood 138 mmol/L (135-146); Allen Test Performed? Yes
[2023-09-02 10:21] LABS: ABG Base Excess -4.8 mmol/L; ABG Glucose Whole Blood 133 mg/dL (75-99); ABG HCO3 20 mmol/L (21-25); ABG Lactic Acid Whole Blood 1.5 mmol/L (0.5-1.6); ABG Oxygen Saturation >99.4 % (94-97); ABG PCO2 33 mmHg (35-45); ABG PH 7.38 (7.35-7.45); ABG Potassium Whole Blood 3.7 mmol/L (3.4-4.5); ABG Sodium Whole Blood 140 mmol/L (135-146); Allen Test Performed? Yes
--- NOTE | 2023-09-02 10:39 | P.ANPRN ---
Procedure Note - Anesthesia - REINA Intraop Pre Bypass REINA Intraop - Anesthesia Indication: Coronary artery bypass graft Date of Procedure: 09/02/23 Pre-operative Diagnosis: Coronary artery disease Post-operative Diagnosis: Coronary artery disease status post coronary artery bypass graft Left Ventricle: Global hypokinesia seen. Ejection Fraction: Other (30-35%) Left Ventricle Hypertrophy: No R. Ventricle Function: Normal Anatomy: Trileaflet Aortic Stenosis: None Aortic Regurgitation: None Mitral Stenosis: None Mitral Regurgitation: Moderate (vena contracta of 0.45 cm) Tricuspid: Tricuspid annular diameter 3.6 cm in end diastole. Tricuspid Stenosis: None Tricuspid Regurgitation: Mild ([id number].) Pulmonic Stenosis: None Pulmonic Regurgitation: None R. Atrial Dilation: No R. Atrial PFO: Yes (Small PFO seen) L. Atrial Dilation: No Aorta: Intra-aortic balloon pump balloon seen below the origin of left subclavian artery. Aortic Dissection: No Aortic Calcification: None Plural Effusion: None - REINA Intraop Post Bypass REINA Intraop Post Bypass Procedure Performed: Coronary artery bypass graft Ejection Fraction: Other (30-35) R. Ventricle Function: Normal Aortic Valve: Unchanged Mitral Valve: Unchanged Tricuspid: Unchanged Pulmonic: Unchanged
[2023-09-02 10:51] LABS: ABG Base Excess -2.4 mmol/L; ABG Glucose Whole Blood 132 mg/dL (75-99); ABG HCO3 22 mmol/L (21-25); ABG Hematocrit 25 % (34.0-46.0); ABG Ionized Calcium 4.3 mg/dL (4.5-5.3); ABG Lactic Acid Whole Blood 1.2 mmol/L (0.5-1.6); ABG Oxygen Saturation >99.4 % (94-97); ABG PCO2 35 mmHg (35-45); ABG Potassium Whole Blood 4.5 mmol/L (3.4-4.5); ABG Sodium Whole Blood 141 mmol/L (135-146); Allen Test Performed? Yes
[2023-09-02 11:33] LABS: ABG Base Excess -1.5 mmol/L; ABG Glucose Whole Blood 132 mg/dL (75-99); ABG HCO3 24 mmol/L (21-25); ABG Ionized Calcium 4.2 mg/dL (4.5-5.3); ABG Lactic Acid Whole Blood 1.1 mmol/L (0.5-1.6); ABG Oxygen Saturation >99.4 % (94-97); ABG PCO2 42 mmHg (35-45); ABG PH 7.36 (7.35-7.45); ABG PO2 320 mmHg (83-108); ABG Potassium Whole Blood 4.4 mmol/L (3.4-4.5); ABG Sodium Whole Blood 142 mmol/L (135-146); Allen Test Performed? Yes
[2023-09-02] MEDS: ceFAZolin 1,000 MG in SODIUM CHLORIDE 0.9% IRRIG BTL 250 ML IRRIGATION ONE (12:15)
[2023-09-02 12:17] LABS: ABG Base Excess -0.7 mmol/L; ABG Glucose Whole Blood 124 mg/dL (75-99); ABG HCO3 24 mmol/L (21-25); ABG Ionized Calcium 4.1 mg/dL (4.5-5.3); ABG Lactic Acid Whole Blood 1.4 mmol/L (0.5-1.6); ABG Oxygen Saturation >99.4 % (94-97); ABG PCO2 38 mmHg (35-45); ABG PH 7.41 (7.35-7.45); ABG Potassium Whole Blood 4.8 mmol/L (3.4-4.5); ABG Sodium Whole Blood 141 mmol/L (135-146); Allen Test Performed? Yes
[2023-09-02 12:24] LABS: ABG Base Excess -0.7 mmol/L; ABG Glucose Whole Blood 129 mg/dL (75-99); ABG HCO3 24 mmol/L (21-25); ABG Ionized Calcium 4.2 mg/dL (4.5-5.3); ABG Lactic Acid Whole Blood 1.4 mmol/L (0.5-1.6); ABG Oxygen Saturation >99.4 % (94-97); ABG PCO2 37 mmHg (35-45); ABG PH 7.41 (7.35-7.45); ABG Potassium Whole Blood 4.8 mmol/L (3.4-4.5); ABG Sodium Whole Blood 142 mmol/L (135-146); Allen Test Performed? Yes
[2023-09-02 12:55] LABS: ABG Base Excess -2.4 mmol/L; ABG Glucose Whole Blood 161 mg/dL (75-99); ABG HCO3 22 mmol/L (21-25); ABG Ionized Calcium 4.7 mg/dL (4.5-5.3); ABG Oxygen Saturation >99.4 % (94-97); ABG PCO2 33 mmHg (35-45); ABG PH 7.43 (7.35-7.45); ABG Potassium Whole Blood 4.2 mmol/L (3.4-4.5); ABG Sodium Whole Blood 141 mmol/L (135-146); Allen Test Performed? Yes
[2023-09-02 13:05] LABS: ABG Base Excess 1.1 mmol/L; ABG Glucose Whole Blood 175 mg/dL (75-99); ABG HCO3 26 mmol/L (21-25); ABG Hematocrit 26 % (34.0-46.0); ABG Oxygen Saturation >99.4 % (94-97); ABG PCO2 39 mmHg (35-45); ABG PH 7.43 (7.35-7.45); ABG Potassium Whole Blood 4.5 mmol/L (3.4-4.5); ABG Sodium Whole Blood 144 mmol/L (135-146); Allen Test Performed? Yes
[2023-09-02 13:25] LABS: ABG Hematocrit 23 % (34.0-46.0); ABG PO2 >420 mmHg (83-108)
[2023-09-02 13:25] LABS: ABG PO2 >420 mmHg (83-108)
[2023-09-02 13:26] LABS: ABG Hematocrit 24 % (34.0-46.0)
[2023-09-02 13:27] LABS: ABG Hematocrit 20 % (34.0-46.0); ABG PO2 >420 mmHg (83-108)
[2023-09-02 13:28] LABS: ABG Hematocrit 23 % (34.0-46.0); ABG PO2 >420 mmHg (83-108)
[2023-09-02 13:29] LABS: ABG Hematocrit 19 % (34.0-46.0); ABG Lactic Acid Whole Blood 3.1 mmol/L (0.5-1.6); ABG PO2 >420 mmHg (83-108)
[2023-09-02 13:30] LABS: ABG Ionized Calcium 7.2 mg/dL (4.5-5.3); ABG Lactic Acid Whole Blood 3.6 mmol/L (0.5-1.6); ABG PO2 >420 mmHg (83-108)
[2023-09-02 13:53] LABS: ABG Base Excess -0.4 mmol/L; ABG Glucose Whole Blood 104 mg/dL (75-99); ABG HCO3 24 mmol/L (21-25); ABG Hematocrit 34 % (34.0-46.0); ABG Ionized Calcium 5.1 mg/dL (4.5-5.3); ABG Oxygen Saturation 99.3 % (94-97); ABG PCO2 35 mmHg (35-45); ABG PH 7.44 (7.35-7.45); ABG PO2 181 mmHg (83-108); ABG Potassium Whole Blood 3.7 mmol/L (3.4-4.5); ABG Sodium Whole Blood 144 mmol/L (135-146); Allen Test Performed? Yes
[2023-09-02] MEDS ORDERED: DEXMEDETOMIDINE/0.9% NACL(PMX) 400 MCG in EMPTY BAG 1 BAG IV SCH (14:11)
[2023-09-02] MEDS ORDERED: DEXTROSE 50% SYRINGE 50 ML IVP PRN ×2 (14:11)
[2023-09-02] MEDS ORDERED: DEXTROSE 5% IN WATER 100 ML with AMIODARONE 150 MG IV PRN (14:11)
[2023-09-02] MEDS ORDERED: Potassium Replacement Protocol 1 EACH MISC MISCELLANE PRN (14:11)
[2023-09-02] MEDS ORDERED: Magnesium Replacement Protocol 1 EACH MISC MISCELLANE PRN (14:11)
[2023-09-02] MEDS ORDERED: Phosphorus Replacement Protoco 1 EACH MISC MISCELLANE PRN (14:11)
[2023-09-02] MEDS ORDERED: AMIODARONE 360 MG in DEXTROSE 5% IN WATER 200 ML IV PRN (14:11)
[2023-09-02] MEDS ORDERED: METOCLOPRAMIDE 5 MG/ML 2 ML VIAL IVP PRN (14:11)
[2023-09-02] MEDS ORDERED: IPRATROPIUM-ALBUTEROL 3 ML NEB INHALATION PRN (14:11)
[2023-09-02] MEDS ORDERED: AMIODARONE 450 MG in DEXTROSE 5% IN WATER 250 ML IV PRN (14:11)
[2023-09-02] MEDS ORDERED: BENZOCAINE/MENTHOL LOZENG 1 EACH LOZENGE MUCOUS MEM PRN (14:11)
[2023-09-02] MEDS ORDERED: CALCIUM GLUCONATE IN NACL 2 GM in SALINE 1 100ML.BAG IVPB PRN (14:11)
--- NOTE | 2023-09-02 14:17 | P.CONS ---
History of Present Illness - Reason for Consult Consult date: 09/02/23 - Chief Complaint Coronary artery disease s/p intra-aortic balloon pump - History of Present Illness * 63-year-old gentleman with past medical history significant for coronary artery disease, chronic congestive heart failure with ejection fraction of 30%, hypertension hyperlipidemia diabetes mellitus obesity bipolar disorder cardiomyopathy developmental delay history of nicotine dependence who has been admitted with shortness of breath and lower extremity edema. Patient underwent cardiac catheterization right heart catheterization and intra-aortic balloon pump. * Patient has comorbidities including diabetes mellitus type 2, peripheral arterial disease, bipolar disorder, history of anxiety. * Patient to undergo myocardial revascularization 09/02/2023 left internal mammary artery, endoscopic left radial artery harvest, endoscopic greater saphenous vein harvest, intraoperative transesophageal echocardiogram, exclusion left atrial appendage and possible tricuspid valve repair. The surgery will be completed by Dr. Everett Weller from cardiothoracic surgery * REVIEW OF SYSTEMS: Patient in CABG * PHYSICAL EXAMINATION: Patient in CABG Past Medical History Past Medical History: Coronary Artery Disease (CAD), Heart Failure, Diabetes Mellitus, Hyperlipidemia, Hypertension Additional Past Medical History / Comment(s): chronic systolic heart failure,cardiomyapathy,rush cataracts History of Any Multi-Drug Resistant Organisms: None Reported Past Surgical History: Heart Catheterization Additional Past Surgical History / Comment(s): Previous foot and wrist surgery Past Anesthesia/Blood Transfusion Reactions: No Reported Reaction Additional Past Anesthesia/Blood Transfusion Reaction / Comm: no known hx blood transfusion Smoking Status: Former smoker - Past Family History Mother Family Medical History: COPD, Pneumonia Brother(s) Family Medical History: COPD Medications and Allergies Home Medications Medication Instructions Recorded Confirmed Type DULoxetine HCL [Cymbalta] 60 mg PO DAILY 08/28/23 08/28/23 History Empagliflozin [Jardiance] 10 mg PO DAILY 08/28/23 08/28/23 History Furosemide [Lasix] 40 mg PO BID 08/28/23 08/28/23 History Glimepiride [Amaryl] 2 mg PO DAILY 08/28/23 08/28/23 History Losartan [Cozaar] 25 mg PO DAILY 08/28/23 08/28/23 History Metoprolol Succinate (ER) [Toprol 50 mg PO DAILY 08/28/23 08/28/23 History Xl] Rosuvastatin Calcium [Crestor] 40 mg PO DAILY 08/28/23 08/28/23 History Spironolactone [Aldactone] 12.5 mg PO DAILY 08/28/23 08/28/23 History busPIRone HCL 15 mg PO BID 08/28/23 08/28/23 History Allergies Allergy/AdvReac Type Severity Reaction Status Date / Time ibuprofen Allergy Unknown Verified 08/28/23 10:06 Physical Exam Vitals: Vital Signs Temp Pulse Pulse Resp BP BP BP 09/02/23 07:45 98.8 F 72 16 09/02/23 07:30 71 16 09/02/23 07:15 73 18 09/02/23 07:00 74 16 09/02/23 06:45 72 13 94/52 09/02/23 06:30 73 17 94/52 09/02/23 06:15 76 14 94/52 09/02/23 06:00 75 16 09/02/23 05:45 77 19 09/02/23 05:30 75 12 09/02/23 05:15 74 13 09/02/23 05:00 79 13 09/02/23 04:45 76 15 09/02/23 04:30 75 12 09/02/23 04:15 75 12 09/02/23 04:00 75 15 09/02/23 03:45 74 15 09/02/23 03:30 70 15 09/02/23 03:15 72 11 L 09/02/23 03:00 73 17 09/02/23 02:45 74 17 09/02/23 02:30 75 14 09/02/23 02:15 73 17 09/02/23 02:00 72 14 09/02/23 01:45 73 12 09/02/23 01:30 70 15 09/02/23 01:15 71 16 09/02/23 01:00 70 14 94/52 09/02/23 00:45 69 19 94/52 09/02/23 00:30 69 14 94/52 09/02/23 00:17 69 14 94/52 09/02/23 00:15 68 5 L 09/02/23 00:00 71 17 09/01/23 23:45 74 21 09/01/23 23:30 73 8 L 09/01/23 23:15 73 11 L 09/01/23 23:00 71 14 09/01/23 22:45 68 15 09/01/23 22:30 68 12 09/01/23 22:15 76 16 09/01/23 22:00 77 5 L 09/01/23 21:45 72 19 09/01/23 21:30 71 18 09/01/23 21:15 73 6 L 09/01/23 21:00 69 47 H 09/01/23 20:45 70 24 09/01/23 20:30 69 17 09/01/23 20:15 70 12 09/01/23 20:00 98.2 F 74 12 09/01/23 19:45 70 16 09/01/23 19:30 68 16 09/01/23 19:15 73 12 09/01/23 19:00 70 18 09/01/23 18:45 68 18 09/01/23 18:30 71 18 09/01/23 18:15 71 16 09/01/23 18:00 76 18 09/01/23 17:45 84 20 09/01/23 17:30 90 21 94/52 09/01/23 17:15 85 16 95/52 09/01/23 17:00 97.3 F L 71 18 95/52 09/01/23 16:45 75 18 102/69 09/01/23 16:30 71 16 91/52 09/01/23 16:15 69 16 82/49 09/01/23 16:00 97.3 F L 70 18 90/46 09/01/23 15:30 71 15 74/40 09/01/23 15:15 82/49 82/52 09/01/23 15:00 78 18 82/43 09/01/23 14:00 74 18 131/65 09/01/23 13:30 76 18 09/01/23 13:15 97.9 F 85 18 120/58 09/01/23 09:24 97.5 F L 85 18 117/74 Pulse Ox 09/02/23 07:45 94 L 09/02/23 07:30 95 09/02/23 07:15 95 09/02/23 07:00 95 09/02/23 06:45 94 L 09/02/23 06:30 95 09/02/23 06:15 92 L 09/02/23 06:00 92 L 09/02/23 05:45 97 09/02/23 05:30 96 09/02/23 05:15 93 L 09/02/23 05:00 94 L 09/02/23 04:45 94 L 09/02/23 04:30 94 L 09/02/23 04:15 94 L 09/02/23 04:00 95 09/02/23 03:45 95 09/02/23 03:30 96 09/02/23 03:15 97 09/02/23 03:00 96 09/02/23 02:45 94 L 09/02/23 02:30 95 09/02/23 02:15 97 09/02/23 02:00 97 09/02/23 01:45 96 09/02/23 01:30 94 L 09/02/23 01:15 95 09/02/23 01:00 92 L 09/02/23 00:45 95 09/02/23 00:30 96 09/02/23 00:17 96 09/02/23 00:15 96 09/02/23 00:00 100 09/01/23 23:45 100 09/01/23 23:30 98 09/01/23 23:15 98 09/01/23 23:00 97 09/01/23 22:45 98 09/01/23 22:30 100 09/01/23 22:15 100 09/01/23 22:00 99 09/01/23 21:45 98 09/01/23 21:30 99 09/01/23 21:15 100 09/01/23 21:00 99 09/01/23 20:45 98 09/01/23 20:30 99 09/01/23 20:15 100 09/01/23 20:00 100 09/01/23 19:45 100 09/01/23 19:30 100 09/01/23 19:15 99 09/01/23 19:00 100 09/01/23 18:45 99 09/01/23 18:30 98 09/01/23 18:15 98 09/01/23 18:00 99 09/01/23 17:45 97 09/01/23 17:30 92 L 09/01/23 17:15 90 L 09/01/23 17:00 97 09/01/23 16:45 95 09/01/23 16:30 99 09/01/23 16:15 96 09/01/23 16:00 98 09/01/23 15:30 92 L 09/01/23 15:15 09/01/23 15:00 95 09/01/23 14:00 98 09/01/23 13:30 98 09/01/23 13:15 99 09/01/23 09:24 97 Intake and Output 09/01/23 09/02/23 09/02/23 22:59 06:59 14:59 Intake Total 2330.460 731.090 151 Output Total 1030 505 65 Balance 1300.460 226.090 86 Intake: IV 340 450 151 0.9% NS 240 360 80 Potassium Chloride 10 meq 100 In Water For Injection 1 100ml.bag @ 100 mls/hr IVPB Q1H [facility] Rx#: [id number] pressure bags 90 18 Intake, IV Titration 1060.460 61.090 0 Amount Insulin Regular 100 unit 22.475 0 In Sodium Chloride 0.9% 100 ml @ Titrate IV .Q0M [facility] Rx#:[id number] Norepinephrine 4 mg In 60.460 38.615 Sodium Chloride 0.9% 250 ml @ 0.03 MCG/KG/MIN 8. 969 mls/hr IV .Q24H [facility] Rx#:[id number] Potassium Chloride 10 meq 100 In Water For Injection 1 100ml.bag @ 100 mls/hr IVPB Q1H [facility] Rx#: [id number] Sodium Chloride 0.9% 1, 400 000 ml In Empty Bag 1 bag @ 1 ML/KG/HR 78.471 mls/ hr IV .[id number] [facility] Rx#: [id number] Sodium Chloride 0.9% 500 500 ml 500 ml @ 999 mls/hr IV .Q31M ONE Rx#:[id number] Oral 930 220 Output: Urine 1030 505 65 Other: Voiding Method Indwelling Catheter Indwelling Catheter Indwelling Catheter Weight 78.471 kg ABP, PAP, CO, CI - Last 8 Hours Arterial Blood Pressure 100/44 Arterial Blood Pressure 98/43 Arterial Blood Pressure 105/38 Arterial Blood Pressure 90/73 Arterial Blood Pressure 105/38 Arterial Blood Pressure 91/40 Arterial Blood Pressure 90/42 Arterial Blood Pressure 92/41 Arterial Blood Pressure 94/49 Arterial Blood Pressure 111/48 Arterial Blood Pressure 119/46 Arterial Blood Pressure 125/45 Arterial Blood Pressure 111/44 Arterial Blood Pressure 106/41 Arterial Blood Pressure 101/41 Arterial Blood Pressure 106/37 Arterial Blood Pressure 117/37 Arterial Blood Pressure 117/43 Arterial Blood Pressure 98/46 Arterial Blood Pressure 101/42 Arterial Blood Pressure 96/41 Arterial Blood Pressure 108/37 Arterial Blood Pressure 117/39 Arterial Blood Pressure 107/44 Arterial Blood Pressure 111/44 Arterial Blood Pressure 100/40 Pulmonary Artery Pressure 44/13 Pulmonary Artery Pressure 45/17 Pulmonary Artery Pressure 47/19 Pulmonary Artery Pressure 50/19 Pulmonary Artery Pressure 39/16 Pulmonary Artery Pressure 38/15 Pulmonary Artery Pressure 40/16 Pulmonary Artery Pressure 41/16 Pulmonary Artery Pressure 42/27 Pulmonary Artery Pressure 46/22 Pulmonary Artery Pressure 51/18 Pulmonary Artery Pressure 56/21 Pulmonary Artery Pressure 55/19 Pulmonary Artery Pressure 50/18 Pulmonary Artery Pressure 47/19 Pulmonary Artery Pressure 47/19 Pulmonary Artery Pressure 50/17 Pulmonary Artery Pressure 51/17 Pulmonary Artery Pressure 48/19 Pulmonary Artery Pressure 49/15 Pulmonary Artery Pressure 47/16 Pulmonary Artery Pressure 46/19 Pulmonary Artery Pressure 49/18 Pulmonary Artery Pressure 48/16 Pulmonary Artery Pressure 49/17 Pulmonary Artery Pressure 47/16 Cardiac Output 6.3 Cardiac Output 4.9 Cardiac Index 3.5 Cardiac Index 2.8 Results CBC & Chem 7: 09/01/23 10:07 09/01/23 18:00 Labs: Abnormal Lab Results - Last 24 Hours (Table) 09/01/23 09/01/23 09/01/23 Range/Units 09:41 10:07 10:07 RBC 3.98 L (4.30-5.90) m/uL Hgb 11.8 L (13.0-17.5) gm/dL Hct 36.5 L (39.0-53.0) % BUN (9-20) mg/dL Glucose (74-99) mg/dL POC Glucose (mg/dL) 178 H (70-110) mg/dL Hemoglobin A1c 7.4 H (<=6.0) % Triglycerides (0.00-149.00) mg/dL HDL Cholesterol (40.00-60.00) mg/dL Urine Protein (Negative) Urine Glucose (UA) (Negative) Crossmatch 09/01/23 09/01/23 09/01/23 Range/Units 10:07 13:13 14:32 RBC (4.30-5.90) m/uL Hgb (13.0-17.5) gm/dL Hct (39.0-53.0) % BUN 27 H (9-20) mg/dL Glucose 171 H (74-99) mg/dL POC Glucose (mg/dL) 153 H (70-110) mg/dL Hemoglobin A1c (<=6.0) % Triglycerides 178.00 H (0.00-149.00) mg/dL HDL Cholesterol 39.10 L (40.00-60.00) mg/dL Urine Protein (Negative) Urine Glucose (UA) (Negative) Crossmatch See Detail 09/01/23 09/01/23 09/01/23 Range/Units 15:50 17:59 21:25 RBC (4.30-5.90) m/uL Hgb (13.0-17.5) gm/dL Hct (39.0-53.0) % BUN (9-20) mg/dL Glucose (74-99) mg/dL POC Glucose (mg/dL) 220 H 277 H (70-110) mg/dL Hemoglobin A1c (<=6.0) % Triglycerides (0.00-149.00) mg/dL HDL Cholesterol (40.00-60.00) mg/dL Urine Protein Trace H (Negative) Urine Glucose (UA) 4+ H (Negative) Crossmatch 09/01/23 09/01/23 09/02/23 Range/Units 23:15 23:59 01:09 RBC (4.30-5.90) m/uL Hgb (13.0-17.5) gm/dL Hct (39.0-53.0) % BUN (9-20) mg/dL Glucose (74-99) mg/dL POC Glucose (mg/dL) 258 H 197 H 115 H (70-110) mg/dL Hemoglobin A1c (<=6.0) % Triglycerides (0.00-149.00) mg/dL HDL Cholesterol (40.00-60.00) mg/dL Urine Protein (Negative) Urine Glucose (UA) (Negative) Crossmatch 09/02/23 09/02/23 09/02/23 Range/Units 03:04 04:01 05:10 RBC (4.30-5.90) m/uL Hgb (13.0-17.5) gm/dL Hct (39.0-53.0) % BUN (9-20) mg/dL Glucose (74-99) mg/dL POC Glucose (mg/dL) 121 H 111 H 129 H (70-110) mg/dL Hemoglobin A1c (<=6.0) % Triglycerides (0.00-149.00) mg/dL HDL Cholesterol (40.00-60.00) mg/dL Urine Protein (Negative) Urine Glucose (UA) (Negative) Crossmatch 09/02/23 Range/Units 06:54 RBC (4.30-5.90) m/uL Hgb (13.0-17.5) gm/dL Hct (39.0-53.0) % BUN (9-20) mg/dL Glucose (74-99) mg/dL POC Glucose (mg/dL) 120 H (70-110) mg/dL Hemoglobin A1c (<=6.0) % Triglycerides (0.00-149.00) mg/dL HDL Cholesterol (40.00-60.00) mg/dL Urine Protein (Negative) Urine Glucose (UA) (Negative) Crossmatch Assessment and Plan Assessment: Assessment and plan * Multivessel coronary artery disease, ischemic cardiomyopathy ejection fraction 30% * Scheduled for CABG 09/02/2023 * Hypertension * Hyperlipidemia * Diabetes mellitus type 2 with HbA1c 10.9 * History of peripheral arterial disease * Bipolar disorder * History of anxiety * General medicine team will continue to follow along, patient scheduled for CABG to be comanaged with medical ICU, cardiac surgery internal medicine * Preoperative antibiotic to be administered and patient to undergo CABG * To medicine will team will continue to follow along and closely monitor blood glucose and monitor for postprocedure concerns * Medications to be reviewed and reconciled * Internal medicine team to follow along post CABG Time with Patient: Greater than 30
--- NOTE | 2023-09-02 14:26 | P.OP ---
Date of Procedure: 09/02/23 Preoperative Diagnosis: 3v CAD, Left main cad CHF DM HTN HLD Bipolar MO Postoperative Diagnosis: Same Procedure(s) Performed: 1. On pump coronary artery bypass grafting x 3. Left internal thoracic artery (in-situ) sequential to diagonal and left anterior descending coronary artery. Right greater saphenous vein from aorta to obtuse marginal artery #1. 2. Left atrial appendage ligation with #35mm AtriClip 3. Endoscopic bilateral greater saphenous vein harvest 4. Graft flow measurements using the medi-stim flow meter system 5. Trans-esophageal echo Implants: #35 AtriClip Anesthesia: GETA Surgeon: Everett Weller Livestock Auctioneer #1: Robby Yoder Estimated Blood Loss (ml): 500 Pathology: none sent Condition: critical Disposition: ICU Indications for Procedure: This patient is a 63 year-old M with the history noted above who presented to an outside hospital with congestive heart failure. Coronary angiography revealed RESOURCE DIRECTOR of the RCA and severe stenosis of the left main coronary artery. Initially there was some reservation regarding his surgical candidacy due to social reasons. However, eventually CABG was recommended and his STS risk of morbidity and mortality was discussed with him and his brother. They were in agreement to proceed. Operative Findings: 2nd and 3rd obtuse marginal too small for bypass. No discernable target from RCA territory. VILLA 1.75 great conduit. Diag 1.5mm good target. LAD 1.6mm good target. [id number] Flow 165ml/min, P.I. 2.8 Left GSV not good conduit. Right GSV 2.25 great conduit. GSV-OM Flow 24ml/min, P.I. 15.2 Description of Procedure: The patient underwent central line, arterial line, and [place] catheter placement in the pre-operative suite by the anesthesia team. The patient also underwent placement of right femoral IABP the day prior to surgery. The patient was then brought to the operating room and placed in the supine position. General anesthesia was induced and the patient was prepped from the chin to the ankles in the usual sterile fashion. A time-out was performed and antibiotics were given. A midline incision was made on the chest and carried down to bone. A median sternotomy was performed. Hemostasis on the bone was achieved using electrocautery. The left pleura was entered and the left internal thoracic artery was harvested in a skeletonized fashion. Simultaneously a physician field administrative assistant harvested the right and left greater saphenous vein in an endoscopic fashion. The patient was systemically heparinized and the HUSSEIN was transected and placed in a papaverine jacuzzi. A left sided chest tube was placed. The right pleura was also opened and a total of 1.5L of serous effusion was evacuated with both sided combined. The pericardium was incised in a reverse T-fashion and a pericardial cradle was created. Stay sutures were placed. The aortic arch and right atrial appendage were cannulated. Antegrade and retrograde cannulas were placed. Once ACT was > 480. cardiopulmonary bypass was initiated and the aorta was cross clamped. 1L of blood based antegrade and 500cc of retrograde cardioplegia was given with good arrest. Cardioplegia was re-dosed every 15 minutes. #35mm AtriClip was placed on the left atrial appendage. The diagonal artery was exposed and arteriotomy made. It was a good target. A side to side between the HUSSEIN and diagonal was performed using a running 7-0 prolene. Next the LAD was identified and arteriotomy was made. It was also a good target. An end to side anastomosis between the HUSSEIN and LAD was performed using a running 7-0 prolene. Next the lateral wall was exposed and the first obtuse marginal artery was dissected out near the base of the JELLY. This was small but a suitable target. It was opened and an end to side anastomosis between the saphenous vein and obtuse marginal was fashioned using a running 7-0 prolene. Lastly, the saphenous vein was fastened to the ascending aorta in an end to side fashion using a running 6-0 prolene. indoor plant technician was given and the cross clamp was removed and heart re-perfused. IABP was resumed. The patient was weaned off cardiopulmonary bypass briefly. There was some bleeding noted from the inferior wall on the RV. The decision was made to go back on cardiopulmonary bypass. At this time, the RV was repaired using 2 felt strips and 3-0 prolene suture. CBP was only re-initiated for approximately 5-10 minutes. The patient was once again weaned from CPB and decannulated. At this point, protamine was given. A 32F chest tube and 19F eric were placed in the mediastinum and right pleura respectively. The pericardium was reapproxim ated partially and the sternum was closed with pioneer cables and layers of suture. The leg was closed in layers as well. The patient tolerated the procedure without any significant hypotension and was transferred to CVICU in critical condition requiring pressors, ionotrope and IABP. Completion echo revealed an improved EF of about 40%.
[2023-09-02] MEDS: LACTATED RINGERS 1,000 ML IV SCH (14:45)
[2023-09-02] MEDS: VASOPRESSIN 20 UNIT in SODIUM CHLORIDE 0.9% 50 ML IV SCH (14:45)
[2023-09-02] MEDS: MILRINONE-D5W PMX 20 MG in DEXTROSE/WATER 1 100ML.BAG IV SCH ×2 (14:45→17:51)
[2023-09-02] MEDS: NOREPINEPHRINE 4 MG in SODIUM CHLORIDE 0.9% 250 ML IV SCH (14:45)
[2023-09-02 14:46] LABS: ABG Lactic Acid Whole Blood 2.3 mmol/L (0.5-1.6)
[2023-09-02 14:50] LABS: Glucose,Whole Blood 101 mg/dL (70-110)
[2023-09-02 14:59] LABS: Basophils % (A) 0 %; Eosinophils # (A) 0.2 k/uL (0-0.7); Eosinophils % (A) 2 %; HCT 34.5 % (39.0-53.0); HGB 11.5 gm/dL (13.0-17.5); Lymphocytes # (A) 0.8 k/uL (1.0-4.8); Lymphocytes % (A) 7 %; MCH 30.7 pg (25.0-35.0); MCHC 33.5 g/dL (31.0-37.0); MCV 91.5 fL (80.0-100.0); Mean Platelet Volume 7.8; Monocytes # (A) 0.3 k/uL (0-1.0); Monocytes % (A) 2 %; Neutrophils # (A) 10.4 k/uL (1.3-7.7); Neutrophils % (A) 89 %; RBC 3.77 m/uL (4.30-5.90); WBC 11.7 k/uL (3.8-10.6)
[2023-09-02 15:08] LABS: Ionized Calcium 5.4 mg/dL (4.5-5.3)
[2023-09-02] MEDS: ALBUMIN HUMAN 5% 250 ML in EMPTY BAG 1 BAG IVPB PRN (15:15)
--- NOTE | 2023-09-02 15:18 | XR ---
EXAMINATION TYPE: XR chest 1V portable DATE OF EXAM: 09/02/2023 COMPARISON: 09/01/2019 HISTORY: Postop cardiac surgery TECHNIQUE: Single frontal view of the chest is obtained. FINDINGS: ET and NG tube appear in good position. There is an aortic balloon pump marker overlying th e proximal descending thoracic aorta. Post median sternotomy changes and atrial appendage clips noted . There is a mediastinal drain. Small amount of air in the soft tissues of the left neck incidentally noted. No sizable pneumothorax. Tiny bilateral pleural effusion with no overt failure or sizable consolidati on. Heart size stable. Question epicardial lead. Left-sided chest tube suggested. Underlying COPD sug gested. IMPRESSION: 1. Postoperative changes with no overt failure, pneumothorax or sizable consolidation.
[2023-09-02 15:22] LABS: ALT 11 U/L (4-49); AST 40 U/L (17-59); African American GFR (CKD) >90 (>60 ml/min/1.73 sqM); Alkaline Phosphatase 40 U/L (38-126); Anion Gap 7 mmol/L; Blood Urea Nitrogen 22 mg/dL (9-20); Calcium 8.7 mg/dL (8.4-10.2); Carbon Dioxide 22 mmol/L (22-30); Chloride 112 mmol/L (98-107); Glucose 95 mg/dL (74-99); Magnesium 2.8 mg/dL (1.6-2.3); Non-African American GFR(CKD) >90 (>60 ml/min/1.73 sqM); Potassium 3.7 mmol/L (3.5-5.1); Sodium 141 mmol/L (137-145); Total Bilirubin 2.2 mg/dL (0.2-1.3); Total Protein 4.7 g/dL (6.3-8.2)
[2023-09-02 15:54] LABS: Platelet Count 84 k/uL (150-450)
[2023-09-02] MEDS: POTASSIUM CHLORIDE 10 MEQ in WATER FOR INJECTION 1 100ML.BAG IVPB SCH (16:04)
[2023-09-02] MEDS: HEPARIN SODIUM,PORCINE 5,000 UNIT/ML 1 ML VIAL SQ SCH (16:05)
[2023-09-02 16:15] LABS: Glucose,Whole Blood 127 mg/dL (70-110)
[2023-09-02 16:17] LABS: INR 1.4 (<1.2); Partial Thromboplastin Time 33.2 sec (22.0-30.0)
[2023-09-02 17:19] LABS: Glucose,Whole Blood 123 mg/dL (70-110)
[2023-09-02] MEDS: INSULIN REGULAR 100 UNIT in SODIUM CHLORIDE 0.9% 100 ML IV SCH (17:26)
--- NOTE | 2023-09-02 17:44 | P.PN ---
Subjective Progress Note Date: 09/02/23 63-year-old male patient, was brought into the intensive care unit after having an antibiotic balloon pump inserted this morning and this was done in preparation for coronary artery bypass surgery. The patient is known to have CAD, chronic CHF with impaired ejection fraction of 30 to 35%. The patient has been hospitalized with [facility] and an earlier cardiac catheterization from April 2023 showed a 70% left main, 70% proximal LAD, 30% circumflex and 70% obtuse marginal 1 and 60% mid RCA. The patient has impaired LV function with an EF around 30 to 35% along with mild to moderate MR, and severe pulm hypertension. The patient is scheduled to undergo coronary artery bypass surgery tomorrow. He is currently on room air oxygen. Free of any chest pain. Hemodynamically stable. Augmented blood pressure is around 80. He has some developmental delay and his other comorbid conditions include diabetes mellitus type 2, hypertension and hyperlipidemia. Blood work shows a white cell count of 9, hemoglobin 11.8, platelet count of 206, normal coagulation profile, BUN of 27 with a creatinine of 1 and sodium levels at 138. LFTs are normal. His CAT scan of the chest that was done on 07/16/2023 showed cardiomegaly with small right and left-sided pleural effusion. This is consistent with CHF. No mediastinal lymphadenopathy. The patient is seen today September 02, 2023 in follow-up in the intensive care unit following surgery. He had undergone an on pump coronary artery bypass grafting x 3 with a left internal thoracic artery sequential to diagonal and the LAD. Right SVG from the aorta to the obtuse marginal #1. Left atrial appendage ligation and clipping. He remains intubated on the mechanical ventilator and assist-control mode at a rate of 14, tidal volume 500, FiO2 40% and a PEEP of 10. He remains on propofol at 20 mcg/kg/min. Lactated Ringer's at 50 MLS per hour. He is requiring vasopressin at 0.04 units/min. Insulin drip at 1 unit/h. Norepinephrine at 0.05 mcg/kg/min. Milrinone at 0.25 mcg/kg/min intra-aortic balloon pump remains in place. Mediastinal and right and left split chest tubes remain in place. Cardiac output is 4.7. Cardiac index 2.6. Received albumin. Receiving cefazolin. Heparin for DVT prophylaxis. White count 11.7. Hemoglobi n 11.5. Platelets 84,000. INR 1.4. Sodium 141. Potassium 3.7. Bicarb 22. BUN 22. Creatinine 0.88. Glucose 101. X-ray no overt failure, pneumothorax or sizable consolidation. ABG's are pending. Objective - Vital Signs Vital signs: Vital Signs Temp 98.2 F 09/02/23 17:00 Pulse 96 09/02/23 17:00 Resp 18 09/02/23 17:00 BP 94/52 09/02/23 06:45 Pulse Ox 100 09/02/23 17:00 FiO2 40 09/02/23 16:00 Intake & Output 09/01/23 09/02/23 09/02/23 18:59 06:59 18:59 Intake Total 1499 7647.333 9844.8 Output Total 713 571 0774 Balance 729 1227.550 -208.2 Weight 78.471 kg 78.471 kg Intake: IV 150 790 238 0.9% NS 600 80 NS cardiac output 60 Potassium Chloride 10 meq 100 In Water For Injection 1 100ml.bag @ 100 mls/hr IVPB Q1H [facility] Rx#: [id number] pressure bags 90 45 Intake, IV Titration 989 840.242 1399.8 Amount Albumin Human 5% 250 ml 500 In Empty Bag 1 bag @ 250 mls/hr IVPB Q1HR PRN Rx#: [id number] Insulin Regular 100 unit 1 In Sodium Chloride 0.9% 100 ml @ Per Protocol IV .Q0M [facility] Rx#:[id number] Insulin Regular 100 unit 22.475 0 In Sodium Chloride 0.9% 100 ml @ Titrate IV .Q0M [facility] Rx#:[id number] Lactated Ringers 1,000 ml 150 @ 50 mls/hr IV .Q20H [facility] Rx#:[id number] Milrinone-D5w Pmx 20 mg 21 In Dextrose/Water 1 100ml .bag @ 0.3 MCG/KG/MIN 7. 062 mls/hr IV .[id number] [facility] Rx#:[id number] Norepinephrine 4 mg In 60 Sodium Chloride 0.9% 250 ml @ 0.02 MCG/KG/MIN 5. 979 mls/hr IV .Q24H [facility] Rx#:[id number] Norepinephrine 4 mg In 9 90.075 Sodium Chloride 0.9% 250 ml @ 0.03 MCG/KG/MIN 8. 969 mls/hr IV .Q24H [facility] Rx#:[id number] Potassium Chloride 10 meq 100 In Water For Injection 1 100ml.bag @ 100 mls/hr IVPB Q1H [facility] Rx#: [id number] Potassium Chloride 10 meq 200 In Water For Injection 1 100ml.bag @ 100 mls/hr IVPB Q1H [facility] Rx#: [id number] Sodium Chloride 0.9% 1, 480 80 000 ml In Empty Bag 1 bag @ 1 ML/KG/HR 78.471 mls/ hr IV .[id number] [facility] Rx#: [id number] Sodium Chloride 0.9% 500 500 ml 500 ml @ 999 mls/hr IV .Q31M [facility] Rx#:[id number] Vasopressin 20 unit In 18.3 Sodium Chloride 0.9% 50 ml @ 0.04 UNITS/MIN 6.12 mls/hr IV .Q8H20M [facility] Rx# :[id number] ceFAZolin 2 gm In Sodium 50 Chloride 0.9% 50 ml @ 100 mls/hr IVPB Q8HR [facility] Rx# :[id number] propofoL 1,000 mg In 28.5 Empty Bag 1 bag @ Titrate IV .Q0M [facility] Rx#: [id number] Oral 360 910 Blood Product 620 Rc As-1 Unit 310 [id number] Rc As-1 Unit 310 [id number] Output: Chest Tube Drainage 920 Lt [address] Rt Pleural CT 570 Mediastinal 350 Urine 770 765 475 Estimated Blood Loss 700 Other: Voiding Method Indwelling Catheter Indwelling Catheter Indwelling Catheter ABP, PAP, CO, CI - Last Documented Arterial Blood Pressure 99/39 Pulmonary Artery Pressure 40/21 Cardiac Output 4.7 Cardiac Index 2.6 - Exam GENERAL EXAM: Intubated, sedated 63-year-old male on the mechanical ventilator, currently in no apparent distress. HEAD: Normocephalic. EYES: Sluggish reaction of pupils, equal size. NOSE: Clear with pink turbinates. THROAT: No erythema or exudates. NECK: No masses, no JVD. Left IJ [place] catheter in place. CHEST: Sternal dressing dry and intact. Heart hugger in place. Pacer wires in place. Right and left, mediastinal chest tubes in place LUNGS: Equal air entry with no crackles, wheeze, rhonchi or dullness. CVS: S1 and S2 normal with no audible murmur, regular rhythm. ABDOMEN: No hepatosplenomegaly, diminished bowel sounds, no guarding or rigidity. SPINE: No scoliosis or deformity SKIN: No rashes CENTRAL NERVOUS SYSTEM: Sedated, tone is normal in all 4 extremities. EXTREMITIES: Right femoral intra aortic balloon pump in place. Right radial arterial line in place. SCDs in place. There is no peripheral edema. No clubbing, no cyanosis. Peripheral pulses are intact. - Labs CBC & Chem 7: 09/02/23 14:49 09/02/23 14:49 Labs: Abnormal Lab Results - Last 24 Hours (Table) 09/01/23 09/01/23 09/01/23 Range/Units 10:07 10:07 14:32 WBC (3.8-10.6) k/uL RBC (4.30-5.90) m/uL Hgb (13.0-17.5) gm/dL Hct (39.0-53.0) % Plt Count (150-450) k/uL Neutrophils # (1.3-7.7) k/uL Lymphocytes # (1.0-4.8) k/uL PT (10.0-12.5) sec INR (<1.2) APTT (22.0-30.0) sec Chloride (98-107) mmol/L BUN (9-20) mg/dL POC Glucose (mg/dL) (70-110) mg/dL Hemoglobin A1c 7.4 H (<=6.0) % Ionized Calcium Emily (4.5-5.3) mg/dL Magnesium (1.6-2.3) mg/dL Total Bilirubin (0.2-1.3) mg/dL Total Protein (6.3-8.2) g/dL Albumin (3.5-5.0) g/dL Triglycerides 178.00 H (0.00-149.00) mg/dL HDL Cholesterol 39.10 L (40.00-60.00) mg/dL Crossmatch See Detail 09/01/23 09/01/23 09/01/23 Range/Units 17:59 21:25 23:15 WBC (3.8-10.6) k/uL RBC (4.30-5.90) m/uL Hgb (13.0-17.5) gm/dL Hct (39.0-53.0) % Plt Count (150-450) k/uL Neutrophils # (1.3-7.7) k/uL Lymphocytes # (1.0-4.8) k/uL PT (10.0-12.5) sec INR (<1.2) APTT (22.0-30.0) sec Chloride (98-107) mmol/L BUN (9-20) mg/dL POC Glucose (mg/dL) 220 H 277 H 258 H (70-110) mg/dL Hemoglobin A1c (<=6.0) % Ionized Calcium Emily (4.5-5.3) mg/dL Magnesium (1.6-2.3) mg/dL Total Bilirubin (0.2-1.3) mg/dL Total Protein (6.3-8.2) g/dL Albumin (3.5-5.0) g/dL Triglycerides (0.00-149.00) mg/dL HDL Cholesterol (40.00-60.00) mg/dL Crossmatch 09/01/23 09/02/23 09/02/23 Range/Units 23:59 01:09 03:04 WBC (3.8-10.6) k/uL RBC (4.30-5.90) m/uL Hgb (13.0-17.5) gm/dL Hct (39.0-53.0) % Plt Count (150-450) k/uL Neutrophils # (1.3-7.7) k/uL Lymphocytes # (1.0-4.8) k/uL PT (10.0-12.5) sec INR (<1.2) APTT (22.0-30.0) sec Chloride (98-107) mmol/L BUN (9-20) mg/dL POC Glucose (mg/dL) 197 H 115 H 121 H (70-110) mg/dL Hemoglobin A1c (<=6.0) % Ionized Calcium Emily (4.5-5.3) mg/dL Magnesium (1.6-2.3) mg/dL Total Bilirubin (0.2-1.3) mg/dL Total Protein (6.3-8.2) g/dL Albumin (3.5-5.0) g/dL Triglycerides (0.00-149.00) mg/dL HDL Cholesterol (40.00-60.00) mg/dL Crossmatch 09/02/23 09/02/23 09/02/23 Range/Units 04:01 05:10 06:54 WBC (3.8-10.6) k/uL RBC (4.30-5.90) m/uL Hgb (13.0-17.5) gm/dL Hct (39.0-53.0) % Plt Count (150-450) k/uL Neutrophils # (1.3-7.7) k/uL Lymphocytes # (1.0-4.8) k/uL PT (10.0-12.5) sec INR (<1.2) APTT (22.0-30.0) sec Chloride (98-107) mmol/L BUN (9-20) mg/dL POC Glucose (mg/dL) 111 H 129 H 120 H (70-110) mg/dL Hemoglobin A1c (<=6.0) % Ionized Calcium Emily (4.5-5.3) mg/dL Magnesium (1.6-2.3) mg/dL Total Bilirubin (0.2-1.3) mg/dL Total Protein (6.3-8.2) g/dL Albumin (3.5-5.0) g/dL Triglycerides (0.00-149.00) mg/dL HDL Cholesterol (40.00-60.00) mg/dL Crossmatch 09/02/23 09/02/23 09/02/23 Range/Units 14:49 14:49 14:49 WBC 11.7 H (3.8-10.6) k/uL RBC 3.77 L (4.30-5.90) m/uL Hgb 11.5 L (13.0-17.5) gm/dL Hct 34.5 L (39.0-53.0) % Plt Count 84 L D (150-450) k/uL Neutrophils # 10.4 H (1.3-7.7) k/uL Lymphocytes # 0.8 L (1.0-4.8) k/uL PT 15.0 H (10.0-12.5) sec INR 1.4 H (<1.2) APTT 33.2 H (22.0-30.0) sec Chloride 112 H (98-107) mmol/L BUN 22 H (9-20) mg/dL POC Glucose (mg/dL) (70-110) mg/dL Hemoglobin A1c (<=6.0) % Ionized Calcium Emily 5.4 H (4.5-5.3) mg/dL Magnesium 2.8 H (1.6-2.3) mg/dL Total Bilirubin 2.2 H (0.2-1.3) mg/dL Total Protein 4.7 L (6.3-8.2) g/dL Albumin 3.0 L (3.5-5.0) g/dL Triglycerides (0.00-149.00) mg/dL HDL Cholesterol (40.00-60.00) mg/dL Crossmatch 09/02/23 09/02/23 Range/Units 16:13 17:17 WBC (3.8-10.6) k/uL RBC (4.30-5.90) m/uL Hgb (13.0-17.5) gm/dL Hct (39.0-53.0) % Plt Count (150-450) k/uL Neutrophils # (1.3-7.7) k/uL Lymphocytes # (1.0-4.8) k/uL PT (10.0-12.5) sec INR (<1.2) APTT (22.0-30.0) sec Chloride (98-107) mmol/L BUN (9-20) mg/dL POC Glucose (mg/dL) 127 H 123 H (70-110) mg/dL Hemoglobin A1c (<=6.0) % Ionized Calcium Emily (4.5-5.3) mg/dL Magnesium (1.6-2.3) mg/dL Total Bilirubin (0.2-1.3) mg/dL Total Protein (6.3-8.2) g/dL Albumin (3.5-5.0) g/dL Triglycerides (0.00-149.00) mg/dL HDL Cholesterol (40.00-60.00) mg/dL Crossmatch Assessment and Plan Assessment: Symptomatic multivessel coronary artery disease, Status post on pump coronary artery bypass grafting x 3. Left internal thoracic artery sequential to diagonal and LAD. Right SVG from aorta to obtuse marginal artery #1. Postoperative day #0 Hypotension, expected outcome of surgery, currently on pressors. Admitted to the hospital yesterday and intra-aortic balloon pump was inserted by cardiology. Currently on intra-aortic balloon pump at one-to-one augmentation Chronic systolic heart failure with impaired ejection fraction of 30 to 35% Peripheral vascular disease Diabetes mellitus type 2 with an HbA1c of 10.9 Hypertension Hyperlipidemia History of developmental delay Bipolar disorder Chronic anxiety History of smoking quit more than 20 years ago Plan: The patient was seen and evaluated Chest x-ray, labs and medications reviewed ABGs are pending Ventilator settings adjusted accordingly He may not be able to be extubated within 6 hours The patient remains on intra-aortic balloon pump Remains on norepinephrine and vasopressin Remains on milrinone We will continue to follow and make further recommendations based on his clinical status I have personally seen and examined the patient, performed the documentation and the assessment and plan as written. Number of minutes spent on the visit: 15.
[2023-09-02 18:05] LABS: Glucose,Whole Blood 153 mg/dL (70-110)
[2023-09-02 18:15] LABS: Basophils % (A) 0 %; Eosinophils # (A) 0.1 k/uL (0-0.7); Eosinophils % (A) 0 %; HCT 30.1 % (39.0-53.0); HGB 10.3 gm/dL (13.0-17.5); Lymphocytes # (A) 0.6 k/uL (1.0-4.8); Lymphocytes % (A) 3 %; MCH 31.4 pg (25.0-35.0); MCHC 34.1 g/dL (31.0-37.0); MCV 91.9 fL (80.0-100.0); Mean Platelet Volume 8.8; Monocytes # (A) 0.7 k/uL (0-1.0); Monocytes % (A) 4 %; Neutrophils # (A) 15.5 k/uL (1.3-7.7); Neutrophils % (A) 91 %; RBC 3.28 m/uL (4.30-5.90); RDW 14.2 % (11.5-15.5); WBC 16.9 k/uL (3.8-10.6)
[2023-09-02 18:23] LABS: Platelet Count 83 k/uL (150-450)
[2023-09-02] MEDS: ACETAMINOPHEN IV (For NPO) 1,000 MG in EMPTY BAG 1 BAG IVPB SCH (18:26)
[2023-09-02 19:10] LABS: Glucose,Whole Blood 159 mg/dL (70-110)
[2023-09-02 20:02] LABS: Glucose,Whole Blood 166 mg/dL (70-110)
[2023-09-02] MEDS: MUPIROCIN 2% OINT 22 GM TUBE NASAL SCH (20:28)
[2023-09-02] MEDS: busPIRone HCl 5 MG TAB PO SCH (20:28)
[2023-09-02] MEDS: IPRATROPIUM-ALBUTEROL 3 ML NEB INHALATION SCH ×2 (20:34)
[2023-09-02 20:59] LABS: Glucose,Whole Blood 174 mg/dL (70-110)
[2023-09-02 21:04] LABS: ABG Base Excess -4.4 mmol/L; ABG HCO3 22 mmol/L (21-25); ABG Oxygen Saturation 98.4 % (94-97); ABG PCO2 41 mmHg (35-45); ABG PH 7.33 (7.35-7.45); ABG PO2 181 mmHg (83-108); ABG TCO2 23 mmol/L (19-24); Allen Test Performed? Yes
[2023-09-02 21:21] LABS: Basophils % (A) 0 %; Eosinophils % (A) 0 %; HCT 29.8 % (39.0-53.0); Lymphocytes # (A) 0.5 k/uL (1.0-4.8); Lymphocytes % (A) 3 %; MCH 30.9 pg (25.0-35.0); MCHC 33.6 g/dL (31.0-37.0); MCV 92.1 fL (80.0-100.0); Mean Platelet Volume 8.5; Monocytes # (A) 0.7 k/uL (0-1.0); Monocytes % (A) 4 %; Neutrophils # (A) 17.4 k/uL (1.3-7.7); Neutrophils % (A) 93 %; RBC 3.24 m/uL (4.30-5.90); RDW 14.3 % (11.5-15.5); WBC 18.7 k/uL (3.8-10.6)
[2023-09-02 21:32] LABS: Platelet Count 86 k/uL (150-450)
[2023-09-02] MEDS: POTASSIUM CHLORIDE 20 MEQ in WATER FOR INJECTION 1 100ML.BAG IVPB STA (21:36)
[2023-09-02 21:57] LABS: Glucose,Whole Blood 176 mg/dL (70-110)
[2023-09-02 23:00] LABS: Glucose,Whole Blood 177 mg/dL (70-110)
[2023-09-02 23:59] LABS: Glucose,Whole Blood 176 mg/dL (70-110)
[2023-09-03 01:01] LABS: Glucose,Whole Blood 175 mg/dL (70-110)
[2023-09-03 02:01] LABS: Glucose,Whole Blood 170 mg/dL (70-110)
[2023-09-03 03:04] LABS: Glucose,Whole Blood 153 mg/dL (70-110)
[2023-09-03 04:04] LABS: Glucose,Whole Blood 149 mg/dL (70-110)
[2023-09-03 04:21] LABS: Basophils % (A) 0 %; Eosinophils # (A) 0.1 k/uL (0-0.7); Eosinophils % (A) 1 %; HCT 27.2 % (39.0-53.0); HGB 9.2 gm/dL (13.0-17.5); Lymphocytes # (A) 0.9 k/uL (1.0-4.8); Lymphocytes % (A) 6 %; MCH 30.9 pg (25.0-35.0); MCHC 33.7 g/dL (31.0-37.0); MCV 91.8 fL (80.0-100.0); Mean Platelet Volume 8.9; Monocytes # (A) 0.8 k/uL (0-1.0); Monocytes % (A) 5 %; Neutrophils # (A) 13.3 k/uL (1.3-7.7); Neutrophils % (A) 87 %; RBC 2.97 m/uL (4.30-5.90); RDW 14.4 % (11.5-15.5); WBC 15.2 k/uL (3.8-10.6)
[2023-09-03 04:23] LABS: Platelet Count 98 k/uL (150-450)
[2023-09-03 05:08] LABS: Glucose,Whole Blood 143 mg/dL (70-110)
[2023-09-03 05:35] LABS: ALT 10 U/L (4-49); AST 45 U/L (17-59); African American GFR (CKD) 83 (>60 ml/min/1.73 sqM); Albumin 2.9 g/dL (3.5-5.0); Alkaline Phosphatase 41 U/L (38-126); Anion Gap 5 mmol/L; Blood Urea Nitrogen 26 mg/dL (9-20); Calcium 8.1 mg/dL (8.4-10.2); Carbon Dioxide 24 mmol/L (22-30); Chloride 112 mmol/L (98-107); Glucose 133 mg/dL (74-99); Magnesium 2.6 mg/dL (1.6-2.3); Non-African American GFR(CKD) 72 (>60 ml/min/1.73 sqM); Potassium 4.7 mmol/L (3.5-5.1); Sodium 141 mmol/L (137-145); Total Bilirubin 1.1 mg/dL (0.2-1.3); Total Protein 4.6 g/dL (6.3-8.2)
[2023-09-03 06:13] LABS: Glucose,Whole Blood 137 mg/dL (70-110)
[2023-09-03 07:23] LABS: Glucose,Whole Blood 126 mg/dL (70-110)
[2023-09-03] MEDS: PANTOPRAZOLE 40 MG/10 ML VIAL IVP SCH (08:00)
--- NOTE | 2023-09-03 08:00 | P.PN ---
Subjective Progress Note Date: 09/03/23 Principal diagnosis: Coronary artery disease with left main disease. Past medical history significant for chronic systolic congestive heart failure with an ejection fraction of 30 to 35%, hypertension, hyperlipidemia, diabetes mellitus type 2, obesity with a BMI of 32.7 kg/m, peripheral vascular disease with recent ABIs on the right 0.95 and on the left 0.97, bipolar disorder, cardiomyopathy, developmentally delayed, and a remote history of nicotine dependence in which she quit smoking over 20 years ago. POD #2 right heart catheterization, ultrasound guided access, placement of intra-aortic balloon pump from right femoral access performed by Dr. Monreal. POD #1 off-pump coronary artery bypass grafting surgery x 3, left internal thoracic artery (in-situ) sequential to diagonal and left anterior descending coronary artery, right greater saphenous vein from aorta to obtuse marginal artery #1, left atrial appendage ligation with a 35 mm atrial clip, endoscopic bilateral greater saphenous vein harvest, graft flow measurements using the DEONTICS-stim flow meter system, intraoperative transesophageal echocardiogram performed by anesthesia. Postoperative acute blood loss anemia and thrombocytopenia, expected given hemodilution and cardiopulmonary bypass. The patient was seen and examined in follow-up today September 03, 2023 at his bedside in the intensive care unit. He is currently laying in bed, is awake, alert, oriented x 3 and is in no acute apparent distress. He denies any complaints of pain or shortness of breath at this time. He was successfully extubated at 9:08 PM last evening, is currently on 2 L nasal cannula with oxygen saturations 98%. He is only achieving 500 mL on his incentive spirometry and needs much encouragement and instruction. Bedside telemetry is showing normal sinus rhythm heart rate 93 bpm with a first-degree heart block. Intra-aortic balloon pump remains in place to his right femoral, currently on a one-to-one setting, blood pressure is currently 95/46 with a MAP of 72 and an augmented pressure of 103 mmHg. Right groin site is clean, dry, soft to palpate. Right IJ cordis and Jackpot-Isabell catheter remains in place with current hemodynamic showing a cardiac output 6.5, cardiac index 3.7, PA pressures 41/17 and a CVP 15 mmHg. Primacor drip remains infusing at 0.25 mcg/kg/min. Norepinephrine drip is infusing at 0.04 mcg/kg/min and vasopressin is infusing at 0.04 units/min for blood pressure support. Mediastinal, left and right pleural chest tubes remain in place to low continuous wall suction -20 cm H2O. No air leak is present. Mediastinal chest tube draining thin serosanguineous drainage with 130 mL output in the last 8 hours and 550 mL output since surgery. Left/right pleural chest tubes are draining thin serosanguineous drainage with 170 mL output in the last 8 hours and 780 mL output since surgery. Chest x-ray and laboratory results were reviewed. Objective - Vital Signs Vital signs: Vital Signs Temp 98.1 F 09/02/23 18:00 Pulse 101 H 09/03/23 07:15 Resp 15 09/03/23 07:15 BP 94/52 09/02/23 19:45 Pulse Ox 94 L 09/03/23 07:15 FiO2 40 09/02/23 20:33 Intake & Output 09/02/23 09/03/23 09/03/23 18:59 06:59 18:59 Intake Total 2187.462 1591.552 79 Output Total 2245 1025 15 Balance -57.538 566.552 64 Weight 79.5 kg Intake: IV 267 1388 79 0.9% NS 80 ACETAMINOPHEN IV (For NPO 250 ) 1,000 mg In Empty Bag 1 bag @ 400 mls/hr IVPB Q6HR [facility] Rx#:[id number] Lactated Ringers 1,000 ml 600 50 @ 50 mls/hr IV .Q20H [facility] Rx#:[id number] NS cardiac output 80 280 20 Potassium Chloride 20 meq 100 In Water For Injection 1 100ml.bag @ 50 mls/hr IVPB ONCE STA Rx#: [id number] ceFAZolin 2 gm In Sodium 50 Chloride 0.9% 50 ml @ 100 mls/hr IVPB ONCE ONE Rx# :[id number] pressure bags 54 108 9 Intake, IV Titration 1300.462 203.552 Amount ACETAMINOPHEN IV (For NPO 100 ) 1,000 mg In Empty Bag 1 bag @ 400 mls/hr IVPB Q6HR [facility] Rx#:[id number] Albumin Human 5% 250 ml 500 In Empty Bag 1 bag @ 250 mls/hr IVPB Q1HR PRN Rx#: [id number] Insulin Regular 100 unit 1.345 34.659 In Sodium Chloride 0.9% 100 ml @ Per Protocol IV .Q0M [facility] Rx#:[id number] Insulin Regular 100 unit 0 In Sodium Chloride 0.9% 100 ml @ Titrate IV .Q0M [facility] Rx#:[id number] Lactated Ringers 1,000 ml 200 @ 50 mls/hr IV .Q20H [facility] Rx#:[id number] Milrinone-D5w Pmx 20 mg 5.9 In Dextrose/Water 1 100ml .bag @ 0.25 MCG/KG/MIN 5. 885 mls/hr IV .Q17H [facility] Rx#:[id number] Milrinone-D5w Pmx 20 mg 21 In Dextrose/Water 1 100ml .bag @ 0.3 MCG/KG/MIN 7. 062 mls/hr IV .[id number] [facility] Rx#:[id number] Norepinephrine 4 mg In 134.395 117.893 Sodium Chloride 0.9% 250 ml @ 0.02 MCG/KG/MIN 5. 979 mls/hr IV .Q24H [facility] Rx#:[id number] Potassium Chloride 10 meq 200 In Water For Injection 1 100ml.bag @ 100 mls/hr IVPB Q1H [facility] Rx#: [id number] Vasopressin 20 unit In 24.4 51 Sodium Chloride 0.9% 50 ml @ 0.04 UNITS/MIN 6.12 mls/hr IV .Q8H20M [facility] Rx# :[id number] ceFAZolin 2 gm In Sodium 50 Chloride 0.9% 50 ml @ 100 mls/hr IVPB Q8HR [facility] Rx# :[id number] propofoL 1,000 mg In 63.422 Empty Bag 1 bag @ Titrate IV .Q0M [facility] Rx#: [id number] Blood Product 620 As-1 Unit 310 [id number] As-1 Unit 310 [id number] Output: Chest Tube Drainage 960 390 [address] Pleural [address] 590 220 0 Mediastinal 370 170 0 Urine 585 635 15 Estimated Blood Loss 700 Other: Voiding Method Indwelling Catheter Indwelling Catheter ABP, PAP, CO, CI - Last Documented Arterial Blood Pressure 105/43 Pulmonary Artery Pressure 44/19 Cardiac Output 6.5 Cardiac Index 3.7 - Exam CONSTITUTIONAL: Lying in bed in the intensive care unit, appears comfortable, cooperative, no apparent acute distress. HEENT: Neck is supple, no JVD, no lymphadenopathy. Right IJ Cordis and Jackpot- Isabell catheter in place and functioning. RESPIRATORY: Lungs sounds essentially clear throughout, diminished to his bilat eral bases. Respirations are symmetrical and nonlabored. Currently on 2 L nasal cannula with oxygen saturations 98%. Able to achieve 500 mL on his incentive spirometry with encouragement and instruction. Strong cough. CARDIOVASCULAR: Regular rhythm and rate. S1 and S2 present, negative for S3, gallop or murmur. Sternum is stable. Palpable peripheral pulses bilaterally, +1 edema to his bilateral lower extremities. No calf pain or tenderness noted. Heart hugger in place with patient demonstrating appropriate use. Knee-high VARUN hose and sequential compression devices in place to his bilateral lower extremities. GASTROINTESTINAL: Abdomen soft, nontender, nondistended. Hypoactive bowel sounds present 4 quadrants. Tolerating diet. Denies passing flatus. No guarding or rigidity. GENITOURINARY: Hobson present draining clear, yellow urine. Urine output 375 mL in the last 8 hours. INTEGUMENTARY: Skin is warm and dry with no evidence of clubbing or cyanosis. Midline sternal incision clean dry and well approximated, covered with dry intact dressing. Bilateral lower extremity EVH sites well approximated without redness or drainage. NEUROLOGIC: Cranial nerves II through XII intact. No focal deficits. MUSKULOSKELETAL: Able to move all extremities, strength equal bilaterally, generalized weakness. PSYCHIATRIC: Alert and oriented to person place and time, appropriate affect, intact judgment and insight. INVASIVE LINES AND TUBES: Mediastinal/left/right pleural chest tubes present and connected to low continuous wall suction, no air leaks present. Mediastinal tube with 130 mL of thin serosanguineous drainage overnight, 550 mL output in the last 24 hours. Left/right pleural chest tubes with 170 mL of thin serosanguineous drainage overnight, 780 mL output in the last 24 hours. Atrial and ventricular epicardial pacemaker wires present, connected to generator, VVI backup rate 50 bpm. Right internal jugular Jackpot/Cordis, right radial arterial line present. Last CO 6.5, CI 3.7, PA 41/17 and CVP 15 mmHg. intra-aortic balloon pump in place, right femoral access site clean, dry and intact, groin soft to palpate, currently on a 1:2 setting, assisted blood pressure is currently showing 95/46, MAP 72, augmented pressure 103, unassisted blood pressure is 101/49. - Allied health notes Allied health notes reviewed: nursing - Labs CBC & Chem 7: 09/03/23 04:01 09/03/23 04:01 Labs: Abnormal Lab Results - Last 24 Hours (Table) 09/01/23 09/02/23 09/02/23 Range/Units 14:32 14:49 14:49 WBC 11.7 H (3.8-10.6) k/uL RBC 3.77 L (4.30-5.90) m/uL Hgb 11.5 L (13.0-17.5) gm/dL Hct 34.5 L (39.0-53.0) % Plt Count 84 L D (150-450) k/uL Neutrophils # 10.4 H (1.3-7.7) k/uL Lymphocytes # 0.8 L (1.0-4.8) k/uL PT 15.0 H (10.0-12.5) sec INR 1.4 H (<1.2) APTT 33.2 H (22.0-30.0) sec ABG pH (7.35-7.45) ABG pO2 (83-108) mmHg ABG O2 Saturation (94-97) % Chloride (98-107) mmol/L BUN (9-20) mg/dL Glucose (74-99) mg/dL POC Glucose (mg/dL) (70-110) mg/dL Calcium (8.4-10.2) mg/dL Ionized Calcium Emily (4.5-5.3) mg/dL Magnesium (1.6-2.3) mg/dL Total Bilirubin (0.2-1.3) mg/dL Total Protein (6.3-8.2) g/dL Albumin (3.5-5.0) g/dL Crossmatch See Detail 09/02/23 09/02/23 09/02/23 Range/Units 14:49 16:13 17:17 WBC (3.8-10.6) k/uL RBC (4.30-5.90) m/uL Hgb (13.0-17.5) gm/dL Hct (39.0-53.0) % Plt Count (150-450) k/uL Neutrophils # (1.3-7.7) k/uL Lymphocytes # (1.0-4.8) k/uL PT (10.0-12.5) sec INR (<1.2) APTT (22.0-30.0) sec ABG pH (7.35-7.45) ABG pO2 (83-108) mmHg ABG O2 Saturation (94-97) % Chloride 112 H (98-107) mmol/L BUN 22 H (9-20) mg/dL Glucose (74-99) mg/dL POC Glucose (mg/dL) 127 H 123 H (70-110) mg/dL Calcium (8.4-10.2) mg/dL Ionized Calcium Emily 5.4 H (4.5-5.3) mg/dL Magnesium 2.8 H (1.6-2.3) mg/dL Total Bilirubin 2.2 H (0.2-1.3) mg/dL Total Protein 4.7 L (6.3-8.2) g/dL Albumin 3.0 L (3.5-5.0) g/dL Crossmatch 09/02/23 09/02/23 09/02/23 Range/Units 18:00 18:04 19:08 WBC 16.9 H (3.8-10.6) k/uL RBC 3.28 L (4.30-5.90) m/uL Hgb 10.3 L (13.0-17.5) gm/dL Hct 30.1 L (39.0-53.0) % Plt Count 83 L (150-450) k/uL Neutrophils # 15.5 H (1.3-7.7) k/uL Lymphocytes # 0.6 L (1.0-4.8) k/uL PT (10.0-12.5) sec INR (<1.2) APTT (22.0-30.0) sec ABG pH (7.35-7.45) ABG pO2 (83-108) mmHg ABG O2 Saturation (94-97) % Chloride (98-107) mmol/L BUN (9-20) mg/dL Glucose (74-99) mg/dL POC Glucose (mg/dL) 153 H 159 H (70-110) mg/dL Calcium (8.4-10.2) mg/dL Ionized Calcium Emily (4.5-5.3) mg/dL Magnesium (1.6-2.3) mg/dL Total Bilirubin (0.2-1.3) mg/dL Total Protein (6.3-8.2) g/dL Albumin (3.5-5.0) g/dL Crossmatch 09/02/23 09/02/23 09/02/23 Range/Units 20:00 20:58 21:00 WBC (3.8-10.6) k/uL RBC (4.30-5.90) m/uL Hgb (13.0-17.5) gm/dL Hct (39.0-53.0) % Plt Count (150-450) k/uL Neutrophils # (1.3-7.7) k/uL Lymphocytes # (1.0-4.8) k/uL PT (10.0-12.5) sec INR (<1.2) APTT (22.0-30.0) sec ABG pH 7.33 L (7.35-7.45) ABG pO2 181 H (83-108) mmHg ABG O2 Saturation 98.4 H (94-97) % Chloride (98-107) mmol/L BUN (9-20) mg/dL Glucose (74-99) mg/dL POC Glucose (mg/dL) 166 H 174 H (70-110) mg/dL Calcium (8.4-10.2) mg/dL Ionized Calcium Emily (4.5-5.3) mg/dL Magnesium (1.6-2.3) mg/dL Total Bilirubin (0.2-1.3) mg/dL Total Protein (6.3-8.2) g/dL Albumin (3.5-5.0) g/dL Crossmatch 09/02/23 09/02/23 09/02/23 Range/Units 21:00 21:55 22:57 WBC 18.7 H (3.8-10.6) k/uL RBC 3.24 L (4.30-5.90) m/uL Hgb 10.0 L (13.0-17.5) gm/dL Hct 29.8 L (39.0-53.0) % Plt Count 86 L (150-450) k/uL Neutrophils # 17.4 H (1.3-7.7) k/uL Lymphocytes # 0.5 L (1.0-4.8) k/uL PT (10.0-12.5) sec INR (<1.2) APTT (22.0-30.0) sec ABG pH (7.35-7.45) ABG pO2 (83-108) mmHg ABG O2 Saturation (94-97) % Chloride (98-107) mmol/L BUN (9-20) mg/dL Glucose (74-99) mg/dL POC Glucose (mg/dL) 176 H 177 H (70-110) mg/dL Calcium (8.4-10.2) mg/dL Ionized Calcium Emily (4.5-5.3) mg/dL Magnesium (1.6-2.3) mg/dL Total Bilirubin (0.2-1.3) mg/dL Total Protein (6.3-8.2) g/dL Albumin (3.5-5.0) g/dL Crossmatch 09/02/23 09/03/23 09/03/23 Range/Units 23:57 00:59 01:59 WBC (3.8-10.6) k/uL RBC (4.30-5.90) m/uL Hgb (13.0-17.5) gm/dL Hct (39.0-53.0) % Plt Count (150-450) k/uL Neutrophils # (1.3-7.7) k/uL Lymphocytes # (1.0-4.8) k/uL PT (10.0-12.5) sec INR (<1.2) APTT (22.0-30.0) sec ABG pH (7.35-7.45) ABG pO2 (83-108) mmHg ABG O2 Saturation (94-97) % Chloride (98-107) mmol/L BUN (9-20) mg/dL Glucose (74-99) mg/dL POC Glucose (mg/dL) 176 H 175 H 170 H (70-110) mg/dL Calcium (8.4-10.2) mg/dL Ionized Calcium Emily (4.5-5.3) mg/dL Magnesium (1.6-2.3) mg/dL Total Bilirubin (0.2-1.3) mg/dL Total Protein (6.3-8.2) g/dL Albumin (3.5-5.0) g/dL Crossmatch 09/03/23 09/03/23 09/03/23 Range/Units 03:02 04:01 04:01 WBC 15.2 H (3.8-10.6) k/uL RBC 2.97 L (4.30-5.90) m/uL Hgb 9.2 L (13.0-17.5) gm/dL Hct 27.2 L (39.0-53.0) % Plt Count 98 L (150-450) k/uL Neutrophils # 13.3 H (1.3-7.7) k/uL Lymphocytes # 0.9 L (1.0-4.8) k/uL PT (10.0-12.5) sec INR (<1.2) APTT (22.0-30.0) sec ABG pH (7.35-7.45) ABG pO2 (83-108) mmHg ABG O2 Saturation (94-97) % Chloride 112 H (98-107) mmol/L BUN 26 H (9-20) mg/dL Glucose 133 H (74-99) mg/dL POC Glucose (mg/dL) 153 H (70-110) mg/dL Calcium 8.1 L (8.4-10.2) mg/dL Ionized Calcium Emily (4.5-5.3) mg/dL Magnesium 2.6 H (1.6-2.3) mg/dL Total Bilirubin (0.2-1.3) mg/dL Total Protein 4.6 L (6.3-8.2) g/dL Albumin 2.9 L (3.5-5.0) g/dL Crossmatch 09/03/23 09/03/23 09/03/23 Range/Units 04:02 05:07 06:12 WBC (3.8-10.6) k/uL RBC (4.30-5.90) m/uL Hgb (13.0-17.5) gm/dL Hct (39.0-53.0) % Plt Count (150-450) k/uL Neutrophils # (1.3-7.7) k/uL Lymphocytes # (1.0-4.8) k/uL PT (10.0-12.5) sec INR (<1.2) APTT (22.0-30.0) sec ABG pH (7.35-7.45) ABG pO2 (83-108) mmHg ABG O2 Saturation (94-97) % Chloride (98-107) mmol/L BUN (9-20) mg/dL Glucose (74-99) mg/dL POC Glucose (mg/dL) 149 H 143 H 137 H (70-110) mg/dL Calcium (8.4-10.2) mg/dL Ionized Calcium Emily (4.5-5.3) mg/dL Magnesium (1.6-2.3) mg/dL Total Bilirubin (0.2-1.3) mg/dL Total Protein (6.3-8.2) g/dL Albumin (3.5-5.0) g/dL Crossmatch 09/03/23 Range/Units 07:21 WBC (3.8-10.6) k/uL RBC (4.30-5.90) m/uL Hgb (13.0-17.5) gm/dL Hct (39.0-53.0) % Plt Count (150-450) k/uL Neutrophils # (1.3-7.7) k/uL Lymphocytes # (1.0-4.8) k/uL PT (10.0-12.5) sec INR (<1.2) APTT (22.0-30.0) sec ABG pH (7.35-7.45) ABG pO2 (83-108) mmHg ABG O2 Saturation (94-97) % Chloride (98-107) mmol/L BUN (9-20) mg/dL Glucose (74-99) mg/dL POC Glucose (mg/dL) 126 H (70-110) mg/dL Calcium (8.4-10.2) mg/dL Ionized Calcium Emily (4.5-5.3) mg/dL Magnesium (1.6-2.3) mg/dL Total Bilirubin (0.2-1.3) mg/dL Total Protein (6.3-8.2) g/dL Albumin (3.5-5.0) g/dL Crossmatch - Imaging and Cardiology Chest x-ray: report reviewed, image reviewed Assessment and Plan Assessment: Multivessel coronary artery disease with left main disease, status post three- vessel on pump coronary artery bypass grafting surgery Chronic systolic congestive heart failure with an ejection fraction of 30 to 35%, status post intra-aortic balloon pump placement Cardiomyopathy Hypertension, currently hypotensive with norepinephrine and vasopressin support Hyperlipidemia Diabetes mellitus type 2, with hemoglobin A1c 10.9 in April 2023, preoperative hemoglobin A1c 7.4% on September 01, 2023 Peripheral arterial disease, recent ABIs to right 0.95 and left 0.97 Bilateral pleural effusions on July 16, 2023 CT scan of the chest Obesity with a BMI of 32.7 kg/m Bipolar disorder Developmentally delayed Anxiety Remote history of nicotine dependence quit smoking over 20 years ago, with an FEV1 of 55% of predicted value and a base volume of 1.43 Plan: Continue aspirin, statin, Plavix and beta-feliberto with hold parameters. Increase metoprolol to tartrate as tolerated. Wean oxygen as tolerated. Encourage use of incentive spirometry 10 times every hour while awake. Bronchodilators management per pulmonary/critical care service. Once his intra-aortic balloon pump has been removed, he will be bedrest for 2 hours, increase activity as tolerated. PT/OT/cardiac rehab consulted. Will monitor daily labs and chest x-rays. Electrolyte replacement per protocol Continue chest tubes for another 24 hours, with strict and accurate I's and O's. Pain control per current as needed regimen. Avoid to Toradol due to his ibuprofen allergy. Continue Hobson catheter for another 24 hours, continue to record strict accurate intake and output. Insulin management per internal medicine, patient should remain on continuous IV insulin for minimum of 48 hours, then may transition to subcutaneous per protocol, preoperative hemoglobin A1c was 7.4%. GI/DVT prophylaxis. Continue Jackpot-Isabell catheter with hemodynamic monitoring. Place intra-aortic balloon pump setting to 1:3, we will remove his IABP, hold manual pressure for [address] FemoStop. Daily weights. Continue Primacor drip at 0.25 mcg/kg/min. Continue norepinephrine and vasopressin drips for blood pressure support, wean off norepinephrine drip first, then wean vasopressin drip as tolerated to keep MAP greater than or equal to 65 mmHg. Keep atrial and ventricular epicardial pacemaker wires in place and connected to backup bedside pacemaker generator on a VVI mode of 50 bpm. More recommendations to follow based on patient's clinical course. Time with Patient: Greater than 30
[2023-09-03] MEDS: DULoxetine HCL 60 MG CAPSULE.DR PO SCH (08:22)
[2023-09-03] MEDS: ATORVASTATIN 40 MG TAB PO SCH (08:22)
--- NOTE | 2023-09-03 08:29 | XR ---
EXAMINATION TYPE: XR chest 1V portable DATE OF EXAM: 09/03/2023 COMPARISON: 09/02/2023 HISTORY: Postop cardiac surgery. TECHNIQUE: Single frontal view of the chest is obtained. FINDINGS: ET and NG tube have been removed. There is an aortic balloon pump marker overlying the proximal descending thoracic aorta. Post median sternotomy changes and atrial appendage clips noted. There is a mediastinal drain. Small amount of ai r in the soft tissues of the left neck incidentally noted. No sizable pneumothorax. Tiny bilateral pleural effusion with no overt failure or sizable consolidati on. Heart size stable. Question epicardial lead. Left- sided chest tube suggested. Underlying COPD neff ggested. Mild initial prominence is now noted. IMPRESSION: 1. Postoperative change correlate for mild venous congestion.
[2023-09-03 08:34] LABS: Glucose,Whole Blood 118 mg/dL (70-110)
[2023-09-03] MEDS ORDERED: MAGNESIUM HYDROXIDE 2,400 MG/30 ML CUP PO PRN (09:00)
[2023-09-03] MEDS ORDERED: bisacodyL 10 MG SUPP RECTAL PRN (09:00)
[2023-09-03 09:49] LABS: Glucose,Whole Blood 115 mg/dL (70-110)
[2023-09-03] MEDS: ACETAMINOPHEN TAB 500 MG TAB PO PRN (10:29)
[2023-09-03] MEDS: CLOPIDOGREL 75 MG TAB PO SCH (10:29)
[2023-09-03] MEDS: METOPROLOL TARTRATE 12.5 MG TAB PO SCH (10:30)
[2023-09-03] MEDS: ASPIRIN 325 MG TAB PO SCH (10:30)
--- NOTE | 2023-09-03 10:31 | P.PN ---
Progress Note - Text Progress Note Date: 09/03/23 This is a note on the removal of the intra-aortic balloon pump. The right groin was examined, there was no evidence of hematoma. The balloon pump was turned off at 9:20 AM. The pre-existing sheath and balloon were removed en shadi and artery was allowed to bleed both antegrade and retrograde for several beats. Direct pressure was held over the site for 30 minutes. There is no residual bleeding or hematoma noted. The groin itself was soft. The right lower extremity appears warm and well-perfused with good palpable pulse. There is no immediate complication. He remained hemodynamically stable with a good follow- up cardiac index of 2.8. A right FemoStop was put into place.
[2023-09-03 10:46] LABS: Glucose,Whole Blood 110 mg/dL (70-110)
[2023-09-03 12:08] LABS: Glucose,Whole Blood 150 mg/dL (70-110)
--- NOTE | 2023-09-03 12:29 | P.PN ---
Subjective Progress Note Date: 09/03/23 * 63-year-old gentleman with past medical history significant for coronary artery disease, chronic congestive heart failure with ejection fraction of 30%, hypertension hyperlipidemia diabetes mellitus obesity bipolar disorder cardiomyopathy developmental delay history of nicotine dependence who has been admitted with shortness of breath and lower extremity edema. Patient underwent cardiac catheterization right heart catheterization and intra-aortic balloon pump. * Patient has comorbidities including diabetes mellitus type 2, peripheral arterial disease, bipolar disorder, history of anxiety. * Patient to undergo myocardial revascularization 09/02/2023. * 09/03/23 : Patient admitted to medical ICU. Patient was successfully extubated postprocedure. S/p intra-aortic balloon pump which remains in place through right femoral access. Patient remains on norepinephrine drip, Primacor drip, vasopressin. Bilateral chest tubes remained in place. Followed up by medical ICU and cardiac surgery. Follow-up blood work obtained including WBC 15.2 hemoglobin 9.2 platelet count of 98, serum chemistry sodium 141 potassium 4.7 carbon dioxide 24 BUN 26 creatinine 1.1 blood glucose 118-1 33 PHYSICAL EXAMINATION: GENERAL: The patient is alert and oriented x3, ill appearance, nasal cannula in place HEENT: Pupils are round and equally reacting to light. EOMI. CARDIOVASCULAR: S1 and S2 present. Chest brace in place PULMONARY: Decreased breath sounds bilaterally, chest tube in place ABDOMEN: Soft, nontender, nondistended, normoactive bowel sounds. No palpable organomegaly. MUSCULOSKELETAL: No joint swelling or deformity. EXTREMITIES: No cyanosis, clubbing, or pedal edema. NEUROLOGICAL: Gross neurological examination did not reveal any focal deficits. SKIN: No rashes. Assessment and plan * Multivessel coronary artery disease, ischemic cardiomyopathy ejection fraction 30% * s/p CABG 09/02/2023 * Hypertension * Hyperlipidemia * Diabetes mellitus type 2 with HbA1c 7.4 * History of peripheral arterial disease * Bipolar disorder * History of anxiety * Patient is s/p CABG, postprocedure continue patient on aspirin, Plavix, statin, on metoprolol with holding parameters * Postprocedure intra-aortic balloon in place to be managed by medical ICU and cardiac surgery team * Postprocedure chest tubes in place to be removed in the next 24 hours * Postprocedure continue patient on continuous insulin infusion will transition to subcu insulin based on blood glucose levels * Complex patient continue management and medical ICU Objective - Vital Signs Vital signs: Vital Signs Temp 98.6 F 09/03/23 08:00 Pulse 101 H 09/03/23 08:00 Resp 19 09/03/23 08:00 BP 94/52 09/02/23 19:45 Pulse Ox 95 09/03/23 08:00 FiO2 40 09/02/23 20:33 Intake & Output 09/02/23 09/03/23 09/03/23 18:59 06:59 18:59 Intake Total 2187.462 1591.552 411.901 Output Total 2245 1025 65 Balance -57.538 566.552 346.901 Weight 79.5 kg Intake: IV 267 1388 158 0.9% NS 80 ACETAMINOPHEN IV (For NPO 250 ) 1,000 mg In Empty Bag 1 bag @ 400 mls/hr IVPB Q6HR [facility] Rx#:[id number] Lactated Ringers 1,000 ml 600 100 @ 50 mls/hr IV .Q20H [facility] Rx#:[id number] NS cardiac output 80 280 40 Potassium Chloride 20 meq 100 In Water For Injection 1 100ml.bag @ 50 mls/hr IVPB ONCE STA Rx#: [id number] ceFAZolin 2 gm In Sodium 50 Chloride 0.9% 50 ml @ 100 mls/hr IVPB ONCE ONE Rx# :[id number] pressure bags 54 108 18 Intake, IV Titration 1300.462 203.552 133.901 Amount ACETAMINOPHEN IV (For NPO 100 ) 1,000 mg In Empty Bag 1 bag @ 400 mls/hr IVPB Q6HR [facility] Rx#:[id number] Albumin Human 5% 250 ml 500 In Empty Bag 1 bag @ 250 mls/hr IVPB Q1HR PRN Rx#: [id number] Insulin Regular 100 unit 1.345 34.659 7.07 In Sodium Chloride 0.9% 100 ml @ Per Protocol IV .Q0M [facility] Rx#:[id number] Insulin Regular 100 unit 0 In Sodium Chloride 0.9% 100 ml @ Titrate IV .Q0M [facility] Rx#:[id number] Lactated Ringers 1,000 ml 200 @ 50 mls/hr IV .Q20H [facility] Rx#:[id number] Milrinone-D5w Pmx 20 mg 5.9 5.9 In Dextrose/Water 1 100ml .bag @ 0.25 MCG/KG/MIN 5. 885 mls/hr IV .Q17H [facility] Rx#:[id number] Milrinone-D5w Pmx 20 mg 21 In Dextrose/Water 1 100ml .bag @ 0.3 MCG/KG/MIN 7. 062 mls/hr IV .[id number] [facility] Rx#:[id number] Norepinephrine 4 mg In 134.395 117.893 19.931 Sodium Chloride 0.9% 250 ml @ 0.02 MCG/KG/MIN 5. 979 mls/hr IV .Q24H [facility] Rx#:[id number] Potassium Chloride 10 meq 200 In Water For Injection 1 100ml.bag @ 100 mls/hr IVPB Q1H [facility] Rx#: [id number] Vasopressin 20 unit In 24.4 51 51 Sodium Chloride 0.9% 50 ml @ 0.04 UNITS/MIN 6.12 mls/hr IV .Q8H20M [facility] Rx# :[id number] ceFAZolin 2 gm In Sodium 50 50 Chloride 0.9% 50 ml @ 100 mls/hr IVPB Q8HR [facility] Rx# :[id number] propofoL 1,000 mg In 63.422 Empty Bag 1 bag @ Titrate IV .Q0M [facility] Rx#: [id number] Oral 120 Blood Product 620 Rc As-1 Unit 310 [id number] Rc As-1 Unit 310 [id number] Output: Chest Tube Drainage 960 390 [address] Pleural CT 590 220 10 Mediastinal 370 170 10 Urine 585 635 45 Estimated Blood Loss 700 Other: Voiding Method Indwelling Catheter Indwelling Catheter ABP, PAP, CO, CI - Last Documented Arterial Blood Pressure 113/44 Pulmonary Artery Pressure 44/20 Cardiac Output 5.8 Cardiac Index 3.3 - Labs CBC & Chem 7: 09/03/23 04:01 09/03/23 04:01 Labs: Abnormal Lab Results - Last 24 Hours (Table) 09/01/23 09/02/23 09/02/23 Range/Units 14:32 14:49 14:49 WBC 11.7 H (3.8-10.6) k/uL RBC 3.77 L (4.30-5.90) m/uL Hgb 11.5 L (13.0-17.5) gm/dL Hct 34.5 L (39.0-53.0) % Plt Count 84 L D (150-450) k/uL Neutrophils # 10.4 H (1.3-7.7) k/uL Lymphocytes # 0.8 L (1.0-4.8) k/uL PT 15.0 H (10.0-12.5) sec INR 1.4 H (<1.2) APTT 33.2 H (22.0-30.0) sec ABG pH (7.35-7.45) ABG pO2 (83-108) mmHg ABG O2 Saturation (94-97) % Chloride (98-107) mmol/L BUN (9-20) mg/dL Glucose (74-99) mg/dL POC Glucose (mg/dL) (70-110) mg/dL Calcium (8.4-10.2) mg/dL Ionized Calcium Emily (4.5-5.3) mg/dL Magnesium (1.6-2.3) mg/dL Total Bilirubin (0.2-1.3) mg/dL Total Protein (6.3-8.2) g/dL Albumin (3.5-5.0) g/dL Crossmatch See Detail 09/02/23 09/02/23 09/02/23 Range/Units 14:49 16:13 17:17 WBC (3.8-10.6) k/uL RBC (4.30-5.90) m/uL Hgb (13.0-17.5) gm/dL Hct (39.0-53.0) % Plt Count (150-450) k/uL Neutrophils # (1.3-7.7) k/uL Lymphocytes # (1.0-4.8) k/uL PT (10.0-12.5) sec INR (<1.2) APTT (22.0-30.0) sec ABG pH (7.35-7.45) ABG pO2 (83-108) mmHg ABG O2 Saturation (94-97) % Chloride 112 H (98-107) mmol/L BUN 22 H (9-20) mg/dL Glucose (74-99) mg/dL POC Glucose (mg/dL) 127 H 123 H (70-110) mg/dL Calcium (8.4-10.2) mg/dL Ionized Calcium Emily 5.4 H (4.5-5.3) mg/dL Magnesium 2.8 H (1.6-2.3) mg/dL Total Bilirubin 2.2 H (0.2-1.3) mg/dL Total Protein 4.7 L (6.3-8.2) g/dL Albumin 3.0 L (3.5-5.0) g/dL Crossmatch 09/02/23 09/02/23 09/02/23 Range/Units 18:00 18:04 19:08 WBC 16.9 H (3.8-10.6) k/uL RBC 3.28 L (4.30-5.90) m/uL Hgb 10.3 L (13.0-17.5) gm/dL Hct 30.1 L (39.0-53.0) % Plt Count 83 L (150-450) k/uL Neutrophils # 15.5 H (1.3-7.7) k/uL Lymphocytes # 0.6 L (1.0-4.8) k/uL PT (10.0-12.5) sec INR (<1.2) APTT (22.0-30.0) sec ABG pH (7.35-7.45) ABG pO2 (83-108) mmHg ABG O2 Saturation (94-97) % Chloride (98-107) mmol/L BUN (9-20) mg/dL Glucose (74-99) mg/dL POC Glucose (mg/dL) 153 H 159 H (70-110) mg/dL Calcium (8.4-10.2) mg/dL Ionized Calcium Emily (4.5-5.3) mg/dL Magnesium (1.6-2.3) mg/dL Total Bilirubin (0.2-1.3) mg/dL Total Protein (6.3-8.2) g/dL Albumin (3.5-5.0) g/dL Crossmatch 09/02/23 09/02/23 09/02/23 Range/Units 20:00 20:58 21:00 WBC (3.8-10.6) k/uL RBC (4.30-5.90) m/uL Hgb (13.0-17.5) gm/dL Hct (39.0-53.0) % Plt Count (150-450) k/uL Neutrophils # (1.3-7.7) k/uL Lymphocytes # (1.0-4.8) k/uL PT (10.0-12.5) sec INR (<1.2) APTT (22.0-30.0) sec ABG pH 7.33 L (7.35-7.45) ABG pO2 181 H (83-108) mmHg ABG O2 Saturation 98.4 H (94-97) % Chloride (98-107) mmol/L BUN (9-20) mg/dL Glucose (74-99) mg/dL POC Glucose (mg/dL) 166 H 174 H (70-110) mg/dL Calcium (8.4-10.2) mg/dL Ionized Calcium Emily (4.5-5.3) mg/dL Magnesium (1.6-2.3) mg/dL Total Bilirubin (0.2-1.3) mg/dL Total Protein (6.3-8.2) g/dL Albumin (3.5-5.0) g/dL Crossmatch 09/02/23 09/02/23 09/02/23 Range/Units 21:00 21:55 22:57 WBC 18.7 H (3.8-10.6) k/uL RBC 3.24 L (4.30-5.90) m/uL Hgb 10.0 L (13.0-17.5) gm/dL Hct 29.8 L (39.0-53.0) % Plt Count 86 L (150-450) k/uL Neutrophils # 17.4 H (1.3-7.7) k/uL Lymphocytes # 0.5 L (1.0-4.8) k/uL PT (10.0-12.5) sec INR (<1.2) APTT (22.0-30.0) sec ABG pH (7.35-7.45) ABG pO2 (83-108) mmHg ABG O2 Saturation (94-97) % Chloride (98-107) mmol/L BUN (9-20) mg/dL Glucose (74-99) mg/dL POC Glucose (mg/dL) 176 H 177 H (70-110) mg/dL Calcium (8.4-10.2) mg/dL Ionized Calcium Emily (4.5-5.3) mg/dL Magnesium (1.6-2.3) mg/dL Total Bilirubin (0.2-1.3) mg/dL Total Protein (6.3-8.2) g/dL Albumin (3.5-5.0) g/dL Crossmatch 09/02/23 09/03/23 09/03/23 Range/Units 23:57 00:59 01:59 WBC (3.8-10.6) k/uL RBC (4.30-5.90) m/uL Hgb (13.0-17.5) gm/dL Hct (39.0-53.0) % Plt Count (150-450) k/uL Neutrophils # (1.3-7.7) k/uL Lymphocytes # (1.0-4.8) k/uL PT (10.0-12.5) sec INR (<1.2) APTT (22.0-30.0) sec ABG pH (7.35-7.45) ABG pO2 (83-108) mmHg ABG O2 Saturation (94-97) % Chloride (98-107) mmol/L BUN (9-20) mg/dL Glucose (74-99) mg/dL POC Glucose (mg/dL) 176 H 175 H 170 H (70-110) mg/dL Calcium (8.4-10.2) mg/dL Ionized Calcium Emily (4.5-5.3) mg/dL Magnesium (1.6-2.3) mg/dL Total Bilirubin (0.2-1.3) mg/dL Total Protein (6.3-8.2) g/dL Albumin (3.5-5.0) g/dL Crossmatch 09/03/23 09/03/23 09/03/23 Range/Units 03:02 04:01 04:01 WBC 15.2 H (3.8-10.6) k/uL RBC 2.97 L (4.30-5.90) m/uL Hgb 9.2 L (13.0-17.5) gm/dL Hct 27.2 L (39.0-53.0) % Plt Count 98 L (150-450) k/uL Neutrophils # 13.3 H (1.3-7.7) k/uL Lymphocytes # 0.9 L (1.0-4.8) k/uL PT (10.0-12.5) sec INR (<1.2) APTT (22.0-30.0) sec ABG pH (7.35-7.45) ABG pO2 (83-108) mmHg ABG O2 Saturation (94-97) % Chloride 112 H (98-107) mmol/L BUN 26 H (9-20) mg/dL Glucose 133 H (74-99) mg/dL POC Glucose (mg/dL) 153 H (70-110) mg/dL Calcium 8.1 L (8.4-10.2) mg/dL Ionized Calcium Emily (4.5-5.3) mg/dL Magnesium 2.6 H (1.6-2.3) mg/dL Total Bilirubin (0.2-1.3) mg/dL Total Protein 4.6 L (6.3-8.2) g/dL Albumin 2.9 L (3.5-5.0) g/dL Crossmatch 09/03/23 09/03/23 09/03/23 Range/Units 04:02 05:07 06:12 WBC (3.8-10.6) k/uL RBC (4.30-5.90) m/uL Hgb (13.0-17.5) gm/dL Hct (39.0-53.0) % Plt Count (150-450) k/uL Neutrophils # (1.3-7.7) k/uL Lymphocytes # (1.0-4.8) k/uL PT (10.0-12.5) sec INR (<1.2) APTT (22.0-30.0) sec ABG pH (7.35-7.45) ABG pO2 (83-108) mmHg ABG O2 Saturation (94-97) % Chloride (98-107) mmol/L BUN (9-20) mg/dL Glucose (74-99) mg/dL POC Glucose (mg/dL) 149 H 143 H 137 H (70-110) mg/dL Calcium (8.4-10.2) mg/dL Ionized Calcium Emily (4.5-5.3) mg/dL Magnesium (1.6-2.3) mg/dL Total Bilirubin (0.2-1.3) mg/dL Total Protein (6.3-8.2) g/dL Albumin (3.5-5.0) g/dL Crossmatch 09/03/23 09/03/23 Range/Units 07:21 08:32 WBC (3.8-10.6) k/uL RBC (4.30-5.90) m/uL Hgb (13.0-17.5) gm/dL Hct (39.0-53.0) % Plt Count (150-450) k/uL Neutrophils # (1.3-7.7) k/uL Lymphocytes # (1.0-4.8) k/uL PT (10.0-12.5) sec INR (<1.2) APTT (22.0-30.0) sec ABG pH (7.35-7.45) ABG pO2 (83-108) mmHg ABG O2 Saturation (94-97) % Chloride (98-107) mmol/L BUN (9-20) mg/dL Glucose (74-99) mg/dL POC Glucose (mg/dL) 126 H 118 H (70-110) mg/dL Calcium (8.4-10.2) mg/dL Ionized Calcium Emily (4.5-5.3) mg/dL Magnesium (1.6-2.3) mg/dL Total Bilirubin (0.2-1.3) mg/dL Total Protein (6.3-8.2) g/dL Albumin (3.5-5.0) g/dL Crossmatch
[2023-09-03 13:23] LABS: Glucose,Whole Blood 138 mg/dL (70-110)
--- NOTE | 2023-09-03 13:28 | P.PN ---
Subjective Progress Note Date: 09/03/23 Principal diagnosis: POD #1 off-pump coronary artery bypass grafting surgery x 3, left internal thoracic artery (in-situ) sequential to diagonal and left anterior descending coronary artery, right greater saphenous vein from aorta to obtuse marginal artery #1 63-year-old male patient, was brought into the intensive care unit after having an antibiotic balloon pump inserted this morning and this was done in preparation for coronary artery bypass surgery. The patient is known to have CAD, chronic CHF with impaired ejection fraction of 30 to 35%. The patient has been hospitalized with [facility] and an earlier cardiac catheterization from April 2023 showed a 70% left main, 70% proximal LAD, 30% circumflex and 70% obtuse marginal 1 and 60% mid RCA. The patient has impaired LV function with an EF around 30 to 35% along with mild to moderate MR, and s evere pulm hypertension. The patient is scheduled to undergo coronary artery bypass surgery tomorrow. He is currently on room air oxygen. Free of any chest pain. Hemodynamically stable. Augmented blood pressure is around 80. He has some developmental delay and his other comorbid conditions include diabetes mellitus type 2, hypertension and hyperlipidemia. Blood work shows a white cell count of 9, hemoglobin 11.8, platelet count of 206, normal coagulation profile, BUN of 27 with a creatinine of 1 and sodium levels at 138. LFTs are normal. His CAT scan of the chest that was done on 07/16/2023 showed cardiomegaly with small right and left-sided pleural effusion. This is consistent with CHF. No mediastinal lymphadenopathy. The patient is seen today September 02, 2023 in follow-up in the intensive care unit following surgery. He had undergone an on pump coronary artery bypass grafting x 3 with a left internal thoracic artery sequential to diagonal and the LAD. Right SVG from the aorta to the obtuse marginal #1. Left atrial appendage ligation and clipping. He remains intubated on the mechanical ventilator and assist-control mode at a rate of 14, tidal volume 500, FiO2 40% and a PEEP of 10. He remains on propofol at 20 mcg/kg/min. Lactated Ringer's at 50 MLS per hour. He is requiring vasopressin at 0.04 units/min. Insulin drip at 1 unit/h. Norepinephrine at 0.05 mcg/kg/min. Milrinone at 0.25 mcg/kg/min intra-aortic balloon pump remains in place. Mediastinal and right and left split chest tubes remain in place. Cardiac output is 4.7. Cardiac index 2.6. Received albumin. Receiving cefazolin. Heparin for DVT prophylaxis. White count 11.7. Hemoglobin 11.5. Platelets 84,000. INR 1.4. Sodium 141. Potassium 3.7. Bicarb 22. BUN 22. Creatinine 0.88. Glucose 101. X-ray no overt failure, pneumothorax or sizable consolidation. ABG's are pending. Patient was today on 09/03/2023, patient was extubated last night uneventfully, patient is now on 2 L nasal cannula, his intra-aortic balloon has been removed today patient remains on pressors and on inotropes. Still requiring norepinephrine at 0.02 mcg/kg/min still on milrinone 0.25 mcg/kg/min and on 0.04 units/min of vasopressin. Cardiac output today is 6.5 cardiac index is 3.7 PA pressure 41/17 CVP of 15. Continues to have mediastinal left and right-sided pleural chest tubes in place, had about 780 mL output since surgery. Chest x- ray is showing mostly postoperative changes labs were all reviewed. WBC count is 15.2 hemoglobin 9.2. Basic metabolic profile is normal, creatinine 1.10 up from 0.88 yesterday Objective - Vital Signs Vital signs: Vital Signs Temp 98.4 F 09/03/23 12:00 Pulse 110 H 09/03/23 13:00 Resp 18 09/03/23 13:00 BP 94/52 09/02/23 19:45 Pulse Ox 97 09/03/23 13:00 FiO2 40 09/02/23 20:33 Intake & Output 09/02/23 09/03/23 09/03/23 18:59 06:59 18:59 Intake Total 2187.462 3584.475 8862.462 Output Total 2245 1025 340 Balance -57.538 566.552 696.462 Weight 79.5 kg Intake: IV 267 1388 474 0.9% NS 80 ACETAMINOPHEN IV (For NPO 250 ) 1,000 mg In Empty Bag 1 bag @ 400 mls/hr IVPB Q6HR [facility] Rx#:[id number] Lactated Ringers 1,000 ml 600 300 @ 50 mls/hr IV .Q20H [facility] Rx#:[id number] NS cardiac output 80 280 120 Potassium Chloride 20 meq 100 In Water For Injection 1 100ml.bag @ 50 mls/hr IVPB ONCE STA Rx#: [id number] ceFAZolin 2 gm In Sodium 50 Chloride 0.9% 50 ml @ 100 mls/hr IVPB ONCE ONE Rx# :[id number] pressure bags 54 108 54 Intake, IV Titration 1300.462 203.552 202.462 Amount ACETAMINOPHEN IV (For NPO 100 ) 1,000 mg In Empty Bag 1 bag @ 400 mls/hr IVPB Q6HR [facility] Rx#:[id number] Albumin Human 5% 250 ml 500 In Empty Bag 1 bag @ 250 mls/hr IVPB Q1HR PRN Rx#: [id number] Insulin Regular 100 unit 1.345 34.659 12.667 In Sodium Chloride 0.9% 100 ml @ Per Protocol IV .Q0M [facility] Rx#:[id number] Insulin Regular 100 unit 0 In Sodium Chloride 0.9% 100 ml @ Titrate IV .Q0M [facility] Rx#:[id number] Lactated Ringers 1,000 ml 200 @ 50 mls/hr IV .Q20H [facility] Rx#:[id number] Milrinone-D5w Pmx 20 mg 5.9 29.5 In Dextrose/Water 1 100ml .bag @ 0.25 MCG/KG/MIN 5. 885 mls/hr IV .Q17H [facility] Rx#:[id number] Milrinone-D5w Pmx 20 mg 21 In Dextrose/Water 1 100ml .bag @ 0.3 MCG/KG/MIN 7. 062 mls/hr IV .[id number] [facility] Rx#:[id number] Norepinephrine 4 mg In 134.395 117.893 59.295 Sodium Chloride 0.9% 250 ml @ 0.02 MCG/KG/MIN 5. 979 mls/hr IV .Q24H [facility] Rx#:[id number] Potassium Chloride 10 meq 200 In Water For Injection 1 100ml.bag @ 100 mls/hr IVPB Q1H [facility] Rx#: [id number] Vasopressin 20 unit In 24.4 51 51 Sodium Chloride 0.9% 50 ml @ 0.04 UNITS/MIN 6.12 mls/hr IV .Q8H20M [facility] Rx# :[id number] ceFAZolin 2 gm In Sodium 50 50 Chloride 0.9% 50 ml @ 100 mls/hr IVPB Q8HR [facility] Rx# :[id number] propofoL 1,000 mg In 63.422 Empty Bag 1 bag @ Titrate IV .Q0M [facility] Rx#: [id number] Oral 360 Blood Product 620 Rc As-1 Unit 310 [id number] Rc As-1 Unit 310 [id number] Output: Chest Tube Drainage 960 390 [address] 590 220 120 Mediastinal 370 170 80 Urine 585 635 140 Estimated Blood Loss 700 Other: Voiding Method Indwelling Catheter Indwelling Catheter Indwelling Catheter ABP, PAP, CO, CI - Last Documented Arterial Blood Pressure 93/47 Pulmonary Artery Pressure 36/24 Cardiac Output 4 Cardiac Index 2.2 - Exam GENERAL EXAM: Reveals 63-year-old white male extubated in no distress on 2 L nasal cannula HEAD: Normocephalic. EYES: Sluggish reaction of pupils, equal size. NOSE: Clear with pink turbinates. THROAT: No erythema or exudates. NECK: No masses, no JVD. Left IJ Holloway-Isabell catheter in place. CHEST: Sternal dressing dry and intact. Heart hugger in place. Pacer wires in place. Right and left, mediastinal chest tubes in place LUNGS: Fair bilaterally no crackles rhonchi or wheezes CVS: S1 and S2 normal with no audible murmur, regular rhythm. ABDOMEN: No hepatosplenomegaly, diminished bowel sounds, no guarding or rigidity. SKIN: No rashes CENTRAL NERVOUS SYSTEM: Alert and oriented x 3 no gross focal deficits EXTREMITIES: Right femoral intra aortic balloon pump was just removed by thoracic surgery. - Labs CBC & Chem 7: 09/03/23 04:01 09/03/23 04:01 Labs: Abnormal Lab Results - Last 24 Hours (Table) 09/01/23 09/02/23 09/02/23 Range/Units 14:32 14:49 14:49 WBC 11.7 H (3.8-10.6) k/uL RBC 3.77 L (4.30-5.90) m/uL Hgb 11.5 L (13.0-17.5) gm/dL Hct 34.5 L (39.0-53.0) % Plt Count 84 L D (150-450) k/uL Neutrophils # 10.4 H (1.3-7.7) k/uL Lymphocytes # 0.8 L (1.0-4.8) k/uL PT 15.0 H (10.0-12.5) sec INR 1.4 H (<1.2) APTT 33.2 H (22.0-30.0) sec ABG pH (7.35-7.45) ABG pO2 (83-108) mmHg ABG O2 Saturation (94-97) % Chloride (98-107) mmol/L BUN (9-20) mg/dL Glucose (74-99) mg/dL POC Glucose (mg/dL) (70-110) mg/dL Calcium (8.4-10.2) mg/dL Ionized Calcium Emily (4.5-5.3) mg/dL Magnesium (1.6-2.3) mg/dL Total Bilirubin (0.2-1.3) mg/dL Total Protein (6.3-8.2) g/dL Albumin (3.5-5.0) g/dL Crossmatch See Detail 09/02/23 09/02/23 09/02/23 Range/Units 14:49 16:13 17:17 WBC (3.8-10.6) k/uL RBC (4.30-5.90) m/uL Hgb (13.0-17.5) gm/dL Hct (39.0-53.0) % Plt Count (150-450) k/uL Neutrophils # (1.3-7.7) k/uL Lymphocytes # (1.0-4.8) k/uL PT (10.0-12.5) sec INR (<1.2) APTT (22.0-30.0) sec ABG pH (7.35-7.45) ABG pO2 (83-108) mmHg ABG O2 Saturation (94-97) % Chloride 112 H (98-107) mmol/L BUN 22 H (9-20) mg/dL Glucose (74-99) mg/dL POC Glucose (mg/dL) 127 H 123 H (70-110) mg/dL Calcium (8.4-10.2) mg/dL Ionized Calcium Emily 5.4 H (4.5-5.3) mg/dL Magnesium 2.8 H (1.6-2.3) mg/dL Total Bilirubin 2.2 H (0.2-1.3) mg/dL Total Protein 4.7 L (6.3-8.2) g/dL Albumin 3.0 L (3.5-5.0) g/dL Crossmatch 09/02/23 09/02/23 09/02/23 Range/Units 18:00 18:04 19:08 WBC 16.9 H (3.8-10.6) k/uL RBC 3.28 L (4.30-5.90) m/uL Hgb 10.3 L (13.0-17.5) gm/dL Hct 30.1 L (39.0-53.0) % Plt Count 83 L (150-450) k/uL Neutrophils # 15.5 H (1.3-7.7) k/uL Lymphocytes # 0.6 L (1.0-4.8) k/uL PT (10.0-12.5) sec INR (<1.2) APTT (22.0-30.0) sec ABG pH (7.35-7.45) ABG pO2 (83-108) mmHg ABG O2 Saturation (94-97) % Chloride (98-107) mmol/L BUN (9-20) mg/dL Glucose (74-99) mg/dL POC Glucose (mg/dL) 153 H 159 H (70-110) mg/dL Calcium (8.4-10.2) mg/dL Ionized Calcium Emily (4.5-5.3) mg/dL Magnesium (1.6-2.3) mg/dL Total Bilirubin (0.2-1.3) mg/dL Total Protein (6.3-8.2) g/dL Albumin (3.5-5.0) g/dL Crossmatch 09/02/23 09/02/23 09/02/23 Range/Units 20:00 20:58 21:00 WBC (3.8-10.6) k/uL RBC (4.30-5.90) m/uL Hgb (13.0-17.5) gm/dL Hct (39.0-53.0) % Plt Count (150-450) k/uL Neutrophils # (1.3-7.7) k/uL Lymphocytes # (1.0-4.8) k/uL PT (10.0-12.5) sec INR (<1.2) APTT (22.0-30.0) sec ABG pH 7.33 L (7.35-7.45) ABG pO2 181 H (83-108) mmHg ABG O2 Saturation 98.4 H (94-97) % Chloride (98-107) mmol/L BUN (9-20) mg/dL Glucose (74-99) mg/dL POC Glucose (mg/dL) 166 H 174 H (70-110) mg/dL Calcium (8.4-10.2) mg/dL Ionized Calcium Emily (4.5-5.3) mg/dL Magnesium (1.6-2.3) mg/dL Total Bilirubin (0.2-1.3) mg/dL Total Protein (6.3-8.2) g/dL Albumin (3.5-5.0) g/dL Crossmatch 09/02/23 09/02/23 09/02/23 Range/Units 21:00 21:55 22:57 WBC 18.7 H (3.8-10.6) k/uL RBC 3.24 L (4.30-5.90) m/uL Hgb 10.0 L (13.0-17.5) gm/dL Hct 29.8 L (39.0-53.0) % Plt Count 86 L (150-450) k/uL Neutrophils # 17.4 H (1.3-7.7) k/uL Lymphocytes # 0.5 L (1.0-4.8) k/uL PT (10.0-12.5) sec INR (<1.2) APTT (22.0-30.0) sec ABG pH (7.35-7.45) ABG pO2 (83-108) mmHg ABG O2 Saturation (94-97) % Chloride (98-107) mmol/L BUN (9-20) mg/dL Glucose (74-99) mg/dL POC Glucose (mg/dL) 176 H 177 H (70-110) mg/dL Calcium (8.4-10.2) mg/dL Ionized Calcium Emily (4.5-5.3) mg/dL Magnesium (1.6-2.3) mg/dL Total Bilirubin (0.2-1.3) mg/dL Total Protein (6.3-8.2) g/dL Albumin (3.5-5.0) g/dL Crossmatch 09/02/23 09/03/23 09/03/23 Range/Units 23:57 00:59 01:59 WBC (3.8-10.6) k/uL RBC (4.30-5.90) m/uL Hgb (13.0-17.5) gm/dL Hct (39.0-53.0) % Plt Count (150-450) k/uL Neutrophils # (1.3-7.7) k/uL Lymphocytes # (1.0-4.8) k/uL PT (10.0-12.5) sec INR (<1.2) APTT (22.0-30.0) sec ABG pH (7.35-7.45) ABG pO2 (83-108) mmHg ABG O2 Saturation (94-97) % Chloride (98-107) mmol/L BUN (9-20) mg/dL Glucose (74-99) mg/dL POC Glucose (mg/dL) 176 H 175 H 170 H (70-110) mg/dL Calcium (8.4-10.2) mg/dL Ionized Calcium Emily (4.5-5.3) mg/dL Magnesium (1.6-2.3) mg/dL Total Bilirubin (0.2-1.3) mg/dL Total Protein (6.3-8.2) g/dL Albumin (3.5-5.0) g/dL Crossmatch 09/03/23 09/03/23 09/03/23 Range/Units 03:02 04:01 04:01 WBC 15.2 H (3.8-10.6) k/uL RBC 2.97 L (4.30-5.90) m/uL Hgb 9.2 L (13.0-17.5) gm/dL Hct 27.2 L (39.0-53.0) % Plt Count 98 L (150-450) k/uL Neutrophils # 13.3 H (1.3-7.7) k/uL Lymphocytes # 0.9 L (1.0-4.8) k/uL PT (10.0-12.5) sec INR (<1.2) APTT (22.0-30.0) sec ABG pH (7.35-7.45) ABG pO2 (83-108) mmHg ABG O2 Saturation (94-97) % Chloride 112 H (98-107) mmol/L BUN 26 H (9-20) mg/dL Glucose 133 H (74-99) mg/dL POC Glucose (mg/dL) 153 H (70-110) mg/dL Calcium 8.1 L (8.4-10.2) mg/dL Ionized Calcium Emily (4.5-5.3) mg/dL Magnesium 2.6 H (1.6-2.3) mg/dL Total Bilirubin (0.2-1.3) mg/dL Total Protein 4.6 L (6.3-8.2) g/dL Albumin 2.9 L (3.5-5.0) g/dL Crossmatch 09/03/23 09/03/23 09/03/23 Range/Units 04:02 05:07 06:12 WBC (3.8-10.6) k/uL RBC (4.30-5.90) m/uL Hgb (13.0-17.5) gm/dL Hct (39.0-53.0) % Plt Count (150-450) k/uL Neutrophils # (1.3-7.7) k/uL Lymphocytes # (1.0-4.8) k/uL PT (10.0-12.5) sec INR (<1.2) APTT (22.0-30.0) sec ABG pH (7.35-7.45) ABG pO2 (83-108) mmHg ABG O2 Saturation (94-97) % Chloride (98-107) mmol/L BUN (9-20) mg/dL Glucose (74-99) mg/dL POC Glucose (mg/dL) 149 H 143 H 137 H (70-110) mg/dL Calcium (8.4-10.2) mg/dL Ionized Calcium Emily (4.5-5.3) mg/dL Magnesium (1.6-2.3) mg/dL Total Bilirubin (0.2-1.3) mg/dL Total Protein (6.3-8.2) g/dL Albumin (3.5-5.0) g/dL Crossmatch 09/03/23 09/03/23 09/03/23 Range/Units 07:21 08:32 09:48 WBC (3.8-10.6) k/uL RBC (4.30-5.90) m/uL Hgb (13.0-17.5) gm/dL Hct (39.0-53.0) % Plt Count (150-450) k/uL Neutrophils # (1.3-7.7) k/uL Lymphocytes # (1.0-4.8) k/uL PT (10.0-12.5) sec INR (<1.2) APTT (22.0-30.0) sec ABG pH (7.35-7.45) ABG pO2 (83-108) mmHg ABG O2 Saturation (94-97) % Chloride (98-107) mmol/L BUN (9-20) mg/dL Glucose (74-99) mg/dL POC Glucose (mg/dL) 126 H 118 H 115 H (70-110) mg/dL Calcium (8.4-10.2) mg/dL Ionized Calcium Emily (4.5-5.3) mg/dL Magnesium (1.6-2.3) mg/dL Total Bilirubin (0.2-1.3) mg/dL Total Protein (6.3-8.2) g/dL Albumin (3.5-5.0) g/dL Crossmatch 09/03/23 Range/Units 12:07 WBC (3.8-10.6) k/uL RBC (4.30-5.90) m/uL Hgb (13.0-17.5) gm/dL Hct (39.0-53.0) % Plt Count (150-450) k/uL Neutrophils # (1.3-7.7) k/uL Lymphocytes # (1.0-4.8) k/uL PT (10.0-12.5) sec INR (<1.2) APTT (22.0-30.0) sec ABG pH (7.35-7.45) ABG pO2 (83-108) mmHg ABG O2 Saturation (94-97) % Chloride (98-107) mmol/L BUN (9-20) mg/dL Glucose (74-99) mg/dL POC Glucose (mg/dL) 150 H (70-110) mg/dL Calcium (8.4-10.2) mg/dL Ionized Calcium Emily (4.5-5.3) mg/dL Magnesium (1.6-2.3) mg/dL Total Bilirubin (0.2-1.3) mg/dL Total Protein (6.3-8.2) g/dL Albumin (3.5-5.0) g/dL Crossmatch Microbiology - Last 24 Hours (Table) 09/01/23 10:26 Nasal Screen MRSA/MSSA - Final Nasopharyngeal Swab Assessment and Plan Assessment: Impression: Symptomatic multivessel coronary artery disease, Status post on pump coronary artery bypass grafting x 3. Left internal thoracic artery sequential to diagonal and LAD. Right SVG from aorta to obtuse marginal artery #1. Postoperative day #1 Chronic systolic heart failure with impaired ejection fraction of 30 to 35% Peripheral vascular disease Diabetes mellitus type 2 with an HbA1c of 10.9 Hypertension Hyperlipidemia History of developmental delay Bipolar disorder Chronic anxiety History of smoking quit more than 20 years ago Commendation: Continue Plavix beta-blockers aspirin and statin Wean oxygen as tolerated Intra-aortic balloon pump has been removed Titrate pressors and inotropes as tolerated Continue pain control management Continue Hobson catheter for the next 24 hours Continue monitoring via Holloway-Isabell catheter for the next 24 hours Daily x-rays of the chest Daily labs Incentive spirometry Ambulation Will continue to follow Time with Patient: Less than 30
[2023-09-03 13:59] LABS: Glucose,Whole Blood 137 mg/dL (70-110)
[2023-09-03 14:21] LABS: HCT 26.2 % (39.0-53.0); HGB 8.8 gm/dL (13.0-17.5); MCHC 33.5 g/dL (31.0-37.0); MCV 92.6 fL (80.0-100.0); Mean Platelet Volume 8.4; Platelet Count 113 k/uL (150-450); RBC 2.83 m/uL (4.30-5.90); RDW 14.5 % (11.5-15.5); WBC 19.5 k/uL (3.8-10.6)
[2023-09-03 14:39] LABS: African American GFR (CKD) 77 (>60 ml/min/1.73 sqM); Anion Gap 13 mmol/L; Blood Urea Nitrogen 28 mg/dL (9-20); Calcium 8.1 mg/dL (8.4-10.2); Carbon Dioxide 16 mmol/L (22-30); Chloride 109 mmol/L (98-107); Glucose 123 mg/dL (74-99); Non-African American GFR(CKD) 67 (>60 ml/min/1.73 sqM); Potassium 4.8 mmol/L (3.5-5.1); Sodium 138 mmol/L (137-145)
[2023-09-03 15:08] LABS: Glucose,Whole Blood 126 mg/dL (70-110)
[2023-09-03 15:43] LABS: ABG Base Excess -1.8 mmol/L; ABG HCO3 23 mmol/L (21-25); ABG Oxygen Saturation 98.4 % (94-97); ABG PCO2 35 mmHg (35-45); ABG PH 7.43 (7.35-7.45); ABG PO2 126 mmHg (83-108); ABG TCO2 24 mmol/L (19-24)
[2023-09-03 15:45] LABS: Allen Test Performed? no
[2023-09-03] MEDS ORDERED: traMADol 50 MG TAB PO SCH ×2 (16:00→18:00)
[2023-09-03] MEDS: CALCIUM GLUCONATE IN NACL 1 GM in SALINE 1 100ML.BAG IVPB ONE (16:08)
[2023-09-03] MEDS: traMADol 50 MG TAB PO SCH (16:09)
[2023-09-03 16:38] LABS: Glucose,Whole Blood 124 mg/dL (70-110)
[2023-09-03] MEDS: ONDANSETRON 4 MG/2 ML VIAL IVP PRN (17:07)
[2023-09-03 17:57] LABS: Glucose,Whole Blood 120 mg/dL (70-110)
[2023-09-03] MEDS: ACETAMINOPHEN IV (For NPO) 1,000 MG in EMPTY BAG 1 BAG IVPB SCH (18:32)
[2023-09-03 19:18] LABS: Glucose,Whole Blood 116 mg/dL (70-110)
[2023-09-03 20:01] LABS: Glucose,Whole Blood 100 mg/dL (70-110)
[2023-09-03 21:06] LABS: Glucose,Whole Blood 134 mg/dL (70-110)
[2023-09-03] MEDS: SENNOSIDES-DOCUSATE SODIUM 1 EACH TAB PO SCH (21:08)
[2023-09-03 22:10] LABS: Glucose,Whole Blood 139 mg/dL (70-110)
[2023-09-03 22:57] LABS: Glucose,Whole Blood 124 mg/dL (70-110)
[2023-09-04 00:06] LABS: Glucose,Whole Blood 135 mg/dL (70-110)
[2023-09-04 01:01] LABS: Glucose,Whole Blood 127 mg/dL (70-110)
[2023-09-04 02:03] LABS: Glucose,Whole Blood 134 mg/dL (70-110)
[2023-09-04 03:01] LABS: Glucose,Whole Blood 133 mg/dL (70-110)
[2023-09-04] MEDS: HYDROmorphone 0.5 MG/0.5 ML SYRINGE IVP STA (03:43)
[2023-09-04 04:08] LABS: Glucose,Whole Blood 130 mg/dL (70-110)
[2023-09-04 04:38] LABS: Basophils # (A) 0.1 k/uL (0-0.2); Basophils % (A) 0 %; Eosinophils # (A) 0.1 k/uL (0-0.7); Eosinophils % (A) 1 %; HCT 29.4 % (39.0-53.0); HGB 9.4 gm/dL (13.0-17.5); Lymphocytes # (A) 1.2 k/uL (1.0-4.8); Lymphocytes % (A) 7 %; MCH 30.2 pg (25.0-35.0); MCV 94.4 fL (80.0-100.0); Mean Platelet Volume 8.6; Monocytes # (A) 1.1 k/uL (0-1.0); Monocytes % (A) 6 %; Neutrophils # (A) 15.1 k/uL (1.3-7.7); Neutrophils % (A) 85 %; Platelet Count 117 k/uL (150-450); RBC 3.11 m/uL (4.30-5.90); RDW 14.6 % (11.5-15.5); WBC 17.7 k/uL (3.8-10.6)
[2023-09-04 05:06] LABS: Ionized Calcium 5.2 mg/dL (4.5-5.3)
[2023-09-04 05:06] LABS: Glucose,Whole Blood 131 mg/dL (70-110)
[2023-09-04 05:18] LABS: ALT 9 U/L (4-49); AST 59 U/L (17-59); African American GFR (CKD) 57 (>60 ml/min/1.73 sqM); Albumin 3.5 g/dL (3.5-5.0); Alkaline Phosphatase 59 U/L (38-126); Anion Gap 12 mmol/L; Blood Urea Nitrogen 34 mg/dL (9-20); Calcium 8.5 mg/dL (8.4-10.2); Carbon Dioxide 18 mmol/L (22-30); Chloride 107 mmol/L (98-107); Glucose 123 mg/dL (74-99); Non-African American GFR(CKD) 49 (>60 ml/min/1.73 sqM); Potassium 4.9 mmol/L (3.5-5.1); Sodium 137 mmol/L (137-145); Total Bilirubin 1.2 mg/dL (0.2-1.3); Total Protein 5.5 g/dL (6.3-8.2)
[2023-09-04 05:45] LABS: Glucose,Whole Blood 134 mg/dL (70-110)
--- NOTE | 2023-09-04 06:21 | PN ---
PROGRESS NOTE Mr. Burgess is a 63-year-old gentleman who underwent aortocoronary bypass surgery yesterday. Procedure was performed by Dr. Weller. This was an off pump 3 vessel bypass with VILLA and LAD sequential grafting and vein graft to the obtuse marginal 1. The patient is being extubated, somewhat hemodynamically unstable on a combination of Milrinone and Levophed. Fair urine output. S1-S2 heard normally. Repeat rhythm is sinus, slightly tachycardic. Lungs reveal fair air entry. Abdomen is soft. Lower extremity reveal diminished pulses. Central nervous system grossly within normal limits. Plan is to continue current medications, pain control and incentive spirometry and pulmonary toilet. MMODL / IJN: [id number] /
[2023-09-04 06:58] LABS: Glucose,Whole Blood 118 mg/dL (70-110)
[2023-09-04 07:56] LABS: Glucose,Whole Blood 119 mg/dL (70-110)
--- NOTE | 2023-09-04 07:57 | XR ---
EXAMINATION TYPE: XR chest 1V portable DATE OF EXAM: 09/04/2023 COMPARISON: 09/03/2023 HISTORY: Postop TECHNIQUE: Single frontal view of the chest is obtained. FINDINGS: There is an aortic balloon pump marker no longer identified. Post median sternotomy change s and atrial appendage clips noted. There is a mediastinal drain. Approximately 5% left apical pneumothorax. Tiny bilateral pleural effusion with no overt failure or s izable consolidation. Heart size stable. Question epicardial lead. Left- sided chest tube suggested. Underlying COPD suggested. IMPRESSION: 1. Interval developing 5% left pneumothorax. 2. Postsurgical changes of basilar atelectasis favored over pneumonia.
[2023-09-04] MEDS: METOPROLOL TARTRATE 12.5 MG TAB PO SCH (08:12)
--- NOTE | 2023-09-04 08:24 | P.PN ---
Subjective Progress Note Date: 09/04/23 Principal diagnosis: Triple-vessel coronary artery disease with left main disease. Previous medical history of hypertension, hyperlipidemia, diabetes mellitus, chronic systolic he art failure with reduced ejection fraction/ischemic cardiomyopathy, bipolar disorder, obesity, peripheral vascular disease, developmental delay, previous tobacco dependence, noncompliance POD #3 right heart catheterization, ultrasound guided access, placement of intra-aortic balloon pump from right femoral access performed by Dr. Monreal. POD #2 on pump coronary artery bypass grafting x 3, left internal thoracic artery (in-situ) sequential to diagonal and left anterior descending coronary artery, right greater saphenous vein from aorta to obtuse marginal artery #1, left atrial appendage ligation with #35mm AtriClip, endoscopic bilateral greater saphenous vein harvest, graft flow measurements using the [employer] flow meter system, trans-esophageal echo Postoperative acute blood loss anemia and thrombocytopenia, expected given hemodilution and cardiopulmonary bypass. The patient was seen and examined sitting up in recliner this morning with Dr. Weller. He is in no acute distress. Currently in sinus tach with heart rate in the low 100s, blood pressure stable by noninvasive blood pressure, currently on low-dose Primacor, Levophed, and vasopressin. Remains on 3 L nasal cannula with oxygen saturation in the high 90s. Patient was refusing to participate in his care last night, refused to stand, refused incentive spirometry, his answer for everything that was requested of him was no. Discussed in detail with the patient this morning that he needs to participate in his care in order to recover and get out of the hospital. Patient is quite sleepy as he was given IV Dilaudid this morning for pain. Right internal jugular Byrnedale/Cordis, right brachial arterial line, mediastinal/right/left pleural chest tubes all remain. Prognosis remains guarded as the patient has history of noncompliance, verbalized multiple times prior to surgery that he does not do anything before 10 AM. No other new concerns. Objective - Vital Signs Vital signs: Vital Signs Temp 98.8 F 09/03/23 19:00 Pulse 105 H 09/04/23 07:45 Resp 18 09/04/23 07:45 BP 118/61 09/04/23 07:45 Pulse Ox 99 09/04/23 07:45 FiO2 40 09/02/23 20:33 Intake & Output 09/03/23 09/04/23 09/04/23 18:59 06:59 18:59 Intake Total 2201.363 1421.560 72.972 Output Total 685 1045 5 Balance 1516.363 376.560 67.972 Intake: IV 928 1138 59 ACETAMINOPHEN IV (For NPO 100 ) 1,000 mg In Empty Bag 1 bag @ 400 mls/hr IVPB Q6HR ZAID Rx#:[id number] Albumin Human 5% 250 ml 250 In Empty Bag 1 bag @ 250 mls/hr IVPB Q1HR PRN Rx#: [id number] Lactated Ringers 1,000 ml 600 600 50 @ 50 mls/hr IV .Q20H ZAID Rx#:[id number] NS cardiac output 220 80 0 pressure bags 108 108 9 Intake, IV Titration 673.363 283.560 13.972 Amount ACETAMINOPHEN IV (For NPO 100 ) 1,000 mg In Empty Bag 1 bag @ 400 mls/hr IVPB Q6HR ZAID Rx#:[id number] Calcium Gluconate in NaCl 100 1 gm In Saline 1 100ml. bag @ 100 mls/hr IVPB ONCE ONE Rx#:[id number] Insulin Regular 100 unit 29.627 8.704 13.972 In Sodium Chloride 0.9% 100 ml @ Per Protocol IV .Q0M ZAID Rx#:[id number] Milrinone-D5w Pmx 20 mg 64.9 138.856 In Dextrose/Water 1 100ml .bag @ 0.25 MCG/KG/MIN 5. 885 mls/hr IV .Q17H ZAID Rx#:[id number] Norepinephrine 4 mg In 229.386 86.326 Sodium Chloride 0.9% 250 ml @ 0.02 MCG/KG/MIN 5. 979 mls/hr IV .Q24H ZAID Rx#:[id number] Vasopressin 20 unit In 99.45 49.674 Sodium Chloride 0.9% 50 ml @ 0.04 UNITS/MIN 6.12 mls/hr IV .Q8H20M ZAID Rx# :[id number] ceFAZolin 2 gm In Sodium 50 Chloride 0.9% 50 ml @ 100 mls/hr IVPB Q8HR ZAID Rx# :[id number] Oral 600 Output: Chest Tube Drainage 400 720 [address] Ple[address] 250 620 0 Mediastinal 150 100 0 Urine 285 325 5 Other: Voiding Method Indwelling Catheter Indwelling Catheter Indwelling Catheter ABP, PAP, CO, CI - Last Documented Arterial Blood Pressure 83/58 Pulmonary Artery Pressure 48/25 Cardiac Output 5 Cardiac Index 2.8 - Exam CONSTITUTIONAL: Appears comfortable, no acute distress RESPIRATORY: Lungs sounds diminished bilaterally. Respirations even, nonlabored. Currently on 3 L nasal cannula with oxygen saturation 100%. Uncooperative with incentive spirometry. Weak cough. CARDIOVASCULAR: S1, S2 present. Regular rate and rhythm, sinus tach on telemetry. Sternum stable. Palpable peripheral pulses bilaterally. Trace generalized edema present. No calf pain or tenderness noted. Heart hugger, antiembolism stockings, SCDs present. GASTROINTESTINAL: Abdomen soft, nontender, nondistended. Active bowel sounds present 4 quadrants. Tolerating minimal clear liquids GENITOURINARY: Hobson present draining clear, yellow urine. Output overnight 15-30 mL per hour, 610 mL in the last 24 hours INTEGUMENTARY: Skin is warm and dry with evidence of good perfusion. Anterior chest incision well approximated and covered with dry intact dressing. Bila teral lower extremity EVH sites well approximated without redness or drainage. NEUROLOGIC: Cranial nerves II through XII intact MUSKULOSKELETAL: Able to move all extremities, strength equal bilaterally PSYCHIATRIC: Alert and oriented to person place and time INVASIVE LINES AND TUBES: Mediastinal/left/right pleural chest tubes present and connected to wall suction, no air leaks present. Mediastinal tube with 60 mL serosanguineous drainage overnight, 300 mL in the last 24 hours. Left/right pleural chest tubes with 540 mL serosanguineous drainage overnight, 900 mL in the last 24 hours. A/V epicardial pacemaker wires present, connected to generator, backup rate 50 bpm. Right internal jugular Byrnedale/Cordis, right brachial arterial line present. Last CO/CI 5.3/3.0, PA 45/25, CVP 14 - Allied health notes Allied health notes reviewed: nursing - Labs CBC & Chem 7: 09/04/23 04:14 09/04/23 04:14 Labs: Abnormal Lab Results - Last 24 Hours (Table) 09/01/23 09/02/23 09/02/23 Range/Units 14:32 08:35 09:30 WBC (3.8-10.6) k/uL RBC (4.30-5.90) m/uL Hgb (13.0-17.5) gm/dL Hct (39.0-53.0) % Plt Count (150-450) k/uL Neutrophils # (1.3-7.7) k/uL Monocytes # (0-1.0) k/uL ABG pH 7.33 L (7.35-7.45) ABG pCO2 34 L (35-45) mmHg ABG pO2 174 H 169 H (83-108) mmHg ABG HCO3 (21-25) mmol/L ABG O2 Saturation 99.0 H 99.1 H (94-97) % ABG Hematocrit 33 L 32 L (34.0-46.0) % ABG Potassium (3.4-4.5) mmol/L ABG Ionized Calcium (4.5-5.3) mg/dL ABG Glucose 100 H 112 H (75-99) mg/dL ABG Lactic Acid (0.5-1.6) mmol/L Hemoglobin 10.7 L 10.3 L (13.0-17.5) gm/dL Chloride (98-107) mmol/L Carbon Dioxide (22-30) mmol/L BUN (9-20) mg/dL Creatinine (0.66-1.25) mg/dL Glucose (74-99) mg/dL POC Glucose (mg/dL) (70-110) mg/dL Calcium (8.4-10.2) mg/dL Total Protein (6.3-8.2) g/dL Arterial Blood Potassium (3.4-4.5) mmol/L Arterial Blood Glucose 100 H 112 H (75-99) mg/dL Crossmatch See Detail 09/02/23 09/02/23 09/02/23 Range/Units 10:20 10:50 11:32 WBC (3.8-10.6) k/uL RBC (4.30-5.90) m/uL Hgb (13.0-17.5) gm/dL Hct (39.0-53.0) % Plt Count (150-450) k/uL Neutrophils # (1.3-7.7) k/uL Monocytes # (0-1.0) k/uL ABG pH (7.35-7.45) ABG pCO2 33 L (35-45) mmHg ABG pO2 >420 H >420 H 320 H (83-108) mmHg ABG HCO3 20 L (21-25) mmol/L ABG O2 Saturation >99.4 H >99.4 H >99.4 H (94-97) % ABG Hematocrit 23 L 25 L 24 L (34.0-46.0) % ABG Potassium (3.4-4.5) mmol/L ABG Ionized Calcium 4.0 L 4.3 L 4.2 L (4.5-5.3) mg/dL ABG Glucose 133 H 132 H 132 H (75-99) mg/dL ABG Lactic Acid (0.5-1.6) mmol/L Hemoglobin 7.5 L 8.1 L 7.9 L (13.0-17.5) gm/dL Chloride (98-107) mmol/L Carbon Dioxide (22-30) mmol/L BUN (9-20) mg/dL Creatinine (0.66-1.25) mg/dL Glucose (74-99) mg/dL POC Glucose (mg/dL) (70-110) mg/dL Calcium (8.4-10.2) mg/dL Total Protein (6.3-8.2) g/dL Arterial Blood Potassium (3.4-4.5) mmol/L Arterial Blood Glucose 133 H 132 H 132 H (75-99) mg/dL Crossmatch 09/02/23 09/02/23 09/02/23 Range/Units 12:16 12:23 12:54 WBC (3.8-10.6) k/uL RBC (4.30-5.90) m/uL Hgb (13.0-17.5) gm/dL Hct (39.0-53.0) % Plt Count (150-450) k/uL Neutrophils # (1.3-7.7) k/uL Monocytes # (0-1.0) k/uL ABG pH (7.35-7.45) ABG pCO2 33 L (35-45) mmHg ABG pO2 >420 H >420 H >420 H (83-108) mmHg ABG HCO3 (21-25) mmol/L ABG O2 Saturation >99.4 H >99.4 H >99.4 H (94-97) % ABG Hematocrit 20 L* 23 L 19 L* (34.0-46.0) % ABG Potassium 4.8 H 4.8 H (3.4-4.5) mmol/L ABG Ionized Calcium 4.1 L 4.2 L (4.5-5.3) mg/dL ABG Glucose 124 H 129 H 161 H (75-99) mg/dL ABG Lactic Acid 3.1 H* (0.5-1.6) mmol/L Hemoglobin 6.7 L* 7.3 L 6.3 L* (13.0-17.5) gm/dL Chloride (98-107) mmol/L Carbon Dioxide (22-30) mmol/L BUN (9-20) mg/dL Creatinine (0.66-1.25) mg/dL Glucose (74-99) mg/dL POC Glucose (mg/dL) (70-110) mg/dL Calcium (8.4-10.2) mg/dL Total Protein (6.3-8.2) g/dL Arterial Blood Potassium 4.8 H 4.8 H (3.4-4.5) mmol/L Arterial Blood Glucose 124 H 129 H 161 H (75-99) mg/dL Crossmatch 09/02/23 09/02/23 09/03/23 Range/Units 13:04 13:53 08:32 WBC (3.8-10.6) k/uL RBC (4.30-5.90) m/uL Hgb (13.0-17.5) gm/dL Hct (39.0-53.0) % Plt Count (150-450) k/uL Neutrophils # (1.3-7.7) k/uL Monocytes # (0-1.0) k/uL ABG pH (7.35-7.45) ABG pCO2 (35-45) mmHg ABG pO2 >420 H 181 H (83-108) mmHg ABG HCO3 26 H (21-25) mmol/L ABG O2 Saturation >99.4 H 99.3 H (94-97) % ABG Hematocrit 26 L (34.0-46.0) % ABG Potassium (3.4-4.5) mmol/L ABG Ionized Calcium 7.2 H* (4.5-5.3) mg/dL ABG Glucose 175 H 104 H (75-99) mg/dL ABG Lactic Acid 3.6 H* 2.3 H* (0.5-1.6) mmol/L Hemoglobin 8.5 L 11.1 L (13.0-17.5) gm/dL Chloride (98-107) mmol/L Carbon Dioxide (22-30) mmol/L BUN (9-20) mg/dL Creatinine (0.66-1.25) mg/dL Glucose (74-99) mg/dL POC Glucose (mg/dL) 118 H (70-110) mg/dL Calcium (8.4-10.2) mg/dL Total Protein (6.3-8.2) g/dL Arterial Blood Potassium (3.4-4.5) mmol/L Arterial Blood Glucose 175 H 104 H (75-99) mg/dL Crossmatch 09/03/23 09/03/23 09/03/23 Range/Units 09:48 12:07 13:22 WBC (3.8-10.6) k/uL RBC (4.30-5.90) m/uL Hgb (13.0-17.5) gm/dL Hct (39.0-53.0) % Plt Count (150-450) k/uL Neutrophils # (1.3-7.7) k/uL Monocytes # (0-1.0) k/uL ABG pH (7.35-7.45) ABG pCO2 (35-45) mmHg ABG pO2 (83-108) mmHg ABG HCO3 (21-25) mmol/L ABG O2 Saturation (94-97) % ABG Hematocrit (34.0-46.0) % ABG Potassium (3.4-4.5) mmol/L ABG Ionized Calcium (4.5-5.3) mg/dL ABG Glucose (75-99) mg/dL ABG Lactic Acid (0.5-1.6) mmol/L Hemoglobin (13.0-17.5) gm/dL Chloride (98-107) mmol/L Carbon Dioxide (22-30) mmol/L BUN (9-20) mg/dL Creatinine (0.66-1.25) mg/dL Glucose (74-99) mg/dL POC Glucose (mg/dL) 115 H 150 H 138 H (70-110) mg/dL Calcium (8.4-10.2) mg/dL Total Protein (6.3-8.2) g/dL Arterial Blood Potassium (3.4-4.5) mmol/L Arterial Blood Glucose (75-99) mg/dL Crossmatch 09/03/23 09/03/23 09/03/23 Range/Units 13:58 14:03 14:03 WBC 19.5 H (3.8-10.6) k/uL RBC 2.83 L (4.30-5.90) m/uL Hgb 8.8 L (13.0-17.5) gm/dL Hct 26.2 L (39.0-53.0) % Plt Count 113 L (150-450) k/uL Neutrophils # (1.3-7.7) k/uL Monocytes # (0-1.0) k/uL ABG pH (7.35-7.45) ABG pCO2 (35-45) mmHg ABG pO2 (83-108) mmHg ABG HCO3 (21-25) mmol/L ABG O2 Saturation (94-97) % ABG Hematocrit (34.0-46.0) % ABG Potassium (3.4-4.5) mmol/L ABG Ionized Calcium (4.5-5.3) mg/dL ABG Glucose (75-99) mg/dL ABG Lactic Acid (0.5-1.6) mmol/L Hemoglobin (13.0-17.5) gm/dL Chloride 109 H (98-107) mmol/L Carbon Dioxide 16 L (22-30) mmol/L BUN 28 H (9-20) mg/dL Creatinine (0.66-1.25) mg/dL Glucose 123 H (74-99) mg/dL POC Glucose (mg/dL) 137 H (70-110) mg/dL Calcium 8.1 L (8.4-10.2) mg/dL Total Protein (6.3-8.2) g/dL Arterial Blood Potassium (3.4-4.5) mmol/L Arterial Blood Glucose (75-99) mg/dL Crossmatch 09/03/23 09/03/23 09/03/23 Range/Units 15:05 15:42 16:37 WBC (3.8-10.6) k/uL RBC (4.30-5.90) m/uL Hgb (13.0-17.5) gm/dL Hct (39.0-53.0) % Plt Count (150-450) k/uL Neutrophils # (1.3-7.7) k/uL Monocytes # (0-1.0) k/uL ABG pH (7.35-7.45) ABG pCO2 (35-45) mmHg ABG pO2 126 H (83-108) mmHg ABG HCO3 (21-25) mmol/L ABG O2 Saturation 98.4 H (94-97) % ABG Hematocrit (34.0-46.0) % ABG Potassium (3.4-4.5) mmol/L ABG Ionized Calcium (4.5-5.3) mg/dL ABG Glucose (75-99) mg/dL ABG Lactic Acid (0.5-1.6) mmol/L Hemoglobin (13.0-17.5) gm/dL Chloride (98-107) mmol/L Carbon Dioxide (22-30) mmol/L BUN (9-20) mg/dL Creatinine (0.66-1.25) mg/dL Glucose (74-99) mg/dL POC Glucose (mg/dL) 126 H 124 H (70-110) mg/dL Calcium (8.4-10.2) mg/dL Total Protein (6.3-8.2) g/dL Arterial Blood Potassium (3.4-4.5) mmol/L Arterial Blood Glucose (75-99) mg/dL Crossmatch 09/03/23 09/03/23 09/03/23 Range/Units 17:56 19:16 21:05 WBC (3.8-10.6) k/uL RBC (4.30-5.90) m/uL Hgb (13.0-17.5) gm/dL Hct (39.0-53.0) % Plt Count (150-450) k/uL Neutrophils # (1.3-7.7) k/uL Monocytes # (0-1.0) k/uL ABG pH (7.35-7.45) ABG pCO2 (35-45) mmHg ABG pO2 (83-108) mmHg ABG HCO3 (21-25) mmol/L ABG O2 Saturation (94-97) % ABG Hematocrit (34.0-46.0) % ABG Potassium (3.4-4.5) mmol/L ABG Ionized Calcium (4.5-5.3) mg/dL ABG Glucose (75-99) mg/dL ABG Lactic Acid (0.5-1.6) mmol/L Hemoglobin (13.0-17.5) gm/dL Chloride (98-107) mmol/L Carbon Dioxide (22-30) mmol/L BUN (9-20) mg/dL Creatinine (0.66-1.25) mg/dL Glucose (74-99) mg/dL POC Glucose (mg/dL) 120 H 116 H 134 H (70-110) mg/dL Calcium (8.4-10.2) mg/dL Total Protein (6.3-8.2) g/dL Arterial Blood Potassium (3.4-4.5) mmol/L Arterial Blood Glucose (75-99) mg/dL Crossmatch 09/03/23 09/03/23 09/04/23 Range/Units 22:09 22:56 00:04 WBC (3.8-10.6) k/uL RBC (4.30-5.90) m/uL Hgb (13.0-17.5) gm/dL Hct (39.0-53.0) % Plt Count (150-450) k/uL Neutrophils # (1.3-7.7) k/uL Monocytes # (0-1.0) k/uL ABG pH (7.35-7.45) ABG pCO2 (35-45) mmHg ABG pO2 (83-108) mmHg ABG HCO3 (21-25) mmol/L ABG O2 Saturation (94-97) % ABG Hematocrit (34.0-46.0) % ABG Potassium (3.4-4.5) mmol/L ABG Ionized Calcium (4.5-5.3) mg/dL ABG Glucose (75-99) mg/dL ABG Lactic Acid (0.5-1.6) mmol/L Hemoglobin (13.0-17.5) gm/dL Chloride (98-107) mmol/L Carbon Dioxide (22-30) mmol/L BUN (9-20) mg/dL Creatinine (0.66-1.25) mg/dL Glucose (74-99) mg/dL POC Glucose (mg/dL) 139 H 124 H 135 H (70-110) mg/dL Calcium (8.4-10.2) mg/dL Total Protein (6.3-8.2) g/dL Arterial Blood Potassium (3.4-4.5) mmol/L Arterial Blood Glucose (75-99) mg/dL Crossmatch 09/04/23 09/04/23 09/04/23 Range/Units 00:59 02:01 03:00 WBC (3.8-10.6) k/uL RBC (4.30-5.90) m/uL Hgb (13.0-17.5) gm/dL Hct (39.0-53.0) % Plt Count (150-450) k/uL Neutrophils # (1.3-7.7) k/uL Monocytes # (0-1.0) k/uL ABG pH (7.35-7.45) ABG pCO2 (35-45) mmHg ABG pO2 (83-108) mmHg ABG HCO3 (21-25) mmol/L ABG O2 Saturation (94-97) % ABG Hematocrit (34.0-46.0) % ABG Potassium (3.4-4.5) mmol/L ABG Ionized Calcium (4.5-5.3) mg/dL ABG Glucose (75-99) mg/dL ABG Lactic Acid (0.5-1.6) mmol/L Hemoglobin (13.0-17.5) gm/dL Chloride (98-107) mmol/L Carbon Dioxide (22-30) mmol/L BUN (9-20) mg/dL Creatinine (0.66-1.25) mg/dL Glucose (74-99) mg/dL POC Glucose (mg/dL) 127 H 134 H 133 H (70-110) mg/dL Calcium (8.4-10.2) mg/dL Total Protein (6.3-8.2) g/dL Arterial Blood Potassium (3.4-4.5) mmol/L Arterial Blood Glucose (75-99) mg/dL Crossmatch 09/04/23 09/04/23 09/04/23 Range/Units 04:06 04:14 04:14 WBC 17.7 H (3.8-10.6) k/uL RBC 3.11 L (4.30-5.90) m/uL Hgb 9.4 L (13.0-17.5) gm/dL Hct 29.4 L (39.0-53.0) % Plt Count 117 L (150-450) k/uL Neutrophils # 15.1 H (1.3-7.7) k/uL Monocytes # 1.1 H (0-1.0) k/uL ABG pH (7.35-7.45) ABG pCO2 (35-45) mmHg ABG pO2 (83-108) mmHg ABG HCO3 (21-25) mmol/L ABG O2 Saturation (94-97) % ABG Hematocrit (34.0-46.0) % ABG Potassium (3.4-4.5) mmol/L ABG Ionized Calcium (4.5-5.3) mg/dL ABG Glucose (75-99) mg/dL ABG Lactic Acid (0.5-1.6) mmol/L Hemoglobin (13.0-17.5) gm/dL Chloride (98-107) mmol/L Carbon Dioxide 18 L (22-30) mmol/L BUN 34 H (9-20) mg/dL Creatinine 1.52 H (0.66-1.25) mg/dL Glucose 123 H (74-99) mg/dL POC Glucose (mg/dL) 130 H (70-110) mg/dL Calcium (8.4-10.2) mg/dL Total Protein 5.5 L (6.3-8.2) g/dL Arterial Blood Potassium (3.4-4.5) mmol/L Arterial Blood Glucose (75-99) mg/dL Crossmatch 09/04/23 09/04/23 09/04/23 Range/Units 05:04 05:43 06:57 WBC (3.8-10.6) k/uL RBC (4.30-5.90) m/uL Hgb (13.0-17.5) gm/dL Hct (39.0-53.0) % Plt Count (150-450) k/uL Neutrophils # (1.3-7.7) k/uL Monocytes # (0-1.0) k/uL ABG pH (7.35-7.45) ABG pCO2 (35-45) mmHg ABG pO2 (83-108) mmHg ABG HCO3 (21-25) mmol/L ABG O2 Saturation (94-97) % ABG Hematocrit (34.0-46.0) % ABG Potassium (3.4-4.5) mmol/L ABG Ionized Calcium (4.5-5.3) mg/dL ABG Glucose (75-99) mg/dL ABG Lactic Acid (0.5-1.6) mmol/L Hemoglobin (13.0-17.5) gm/dL Chloride (98-107) mmol/L Carbon Dioxide (22-30) mmol/L BUN (9-20) mg/dL Creatinine (0.66-1.25) mg/dL Glucose (74-99) mg/dL POC Glucose (mg/dL) 131 H 134 H 118 H (70-110) mg/dL Calcium (8.4-10.2) mg/dL Total Protein (6.3-8.2) g/dL Arterial Blood Potassium (3.4-4.5) mmol/L Arterial Blood Glucose (75-99) mg/dL Crossmatch 09/04/23 Range/Units 07:55 WBC (3.8-10.6) k/uL RBC (4.30-5.90) m/uL Hgb (13.0-17.5) gm/dL Hct (39.0-53.0) % Plt Count (150-450) k/uL Neutrophils # (1.3-7.7) k/uL Monocytes # (0-1.0) k/uL ABG pH (7.35-7.45) ABG pCO2 (35-45) mmHg ABG pO2 (83-108) mmHg ABG HCO3 (21-25) mmol/L ABG O2 Saturation (94-97) % ABG Hematocrit (34.0-46.0) % ABG Potassium (3.4-4.5) mmol/L ABG Ionized Calcium (4.5-5.3) mg/dL ABG Glucose (75-99) mg/dL ABG Lactic Acid (0.5-1.6) mmol/L Hemoglobin (13.0-17.5) gm/dL Chloride (98-107) mmol/L Carbon Dioxide (22-30) mmol/L BUN (9-20) mg/dL Creatinine (0.66-1.25) mg/dL Glucose (74-99) mg/dL POC Glucose (mg/dL) 119 H (70-110) mg/dL Calcium (8.4-10.2) mg/dL Total Protein (6.3-8.2) g/dL Arterial Blood Potassium (3.4-4.5) mmol/L Arterial Blood Glucose (75-99) mg/dL Crossmatch Microbiology - Last 24 Hours (Table) 09/01/23 10:26 Nasal Screen MRSA/MSSA - Final Nasopharyngeal Swab - Imaging and Cardiology Chest x-ray: report reviewed, image reviewed Assessment and Plan Assessment: Triple-vessel coronary artery disease with left main disease, status post three- vessel on pump CABG History of hypertension, currently hypotensive from vasoplegia, remains on IV vaso and levo Hyperlipidemia, treated, cholesterol 135, LDL 60, triglycerides 178 Diabetes mellitus, preoperative hemoglobin A1c 7.4% Chronic systolic heart failure with reduced ejection fraction/ischemic cardiomyopathy, EF 30-35%, preoperative placement of intra-aortic balloon pump Bipolar disorder Obesity Peripheral vascular disease, right FAIZAN 0.95, left FAIZAN 0.97 Developmental delay Previous tobacco dependence Moderate COPD, preoperative FEV1 55% of predicted Noncompliance Postoperative acute blood loss anemia and thrombocytopenia, expected Incidental finding of tiny left pneumothorax, not a complication Plan: Continue aspirin, statin, Plavix and beta-feliberto with hold parameters. Will increase beta-feliberto when able Will discontinue Primacor, continue vaso at current rate, wean levo as tolerated Wean oxygen as tolerated. Encourage use of incentive spirometry 10 times every hour while awake. Bronchodilators per pulmonology Increase activity, ambulate as tolerated. PT/OT/cardiac rehab consulted. Will monitor daily labs and chest x-rays. Electrolyte replacement per protocol. Will give concentrated albumin followed by IV Lasix today Pain control per current medication regimen. Avoid to Toradol due to his ibuprofen allergy. Limit narcotics as much as possible Continue Hobson catheter for another 24 hours, continue to record strict accurate intake and output Continue chest tubes for another 24 hours, monitor output Insulin management per internal medicine GI/DVT prophylaxis Continue Byrnedale-Isabell catheter with hemodynamic monitoring Daily weights Keep atrial and ventricular epicardial pacemaker wires in place and connected to backup bedside pacemaker generator on a VVI mode of 50 bpm. Patient needs continued encouragement to participate in his care, unfortunately he has a history of refusal, was discussed at length with the patient that refusal to participate in his care could result in significant complications More recommendations to follow based on patient's clinical course.
--- NOTE | 2023-09-04 10:56 | PN ---
PROGRESS NOTE Mr. Burgess is in sinus tachycardia, status post bypass surgery 48 hours ago, on vasopressin, Milrinone, and Levophed, all of which are gradually being weaned. To me, he appears to be somewhat volume depleted. He is going to receive some albumin drip. I would recommend that we hold off on the Lasix for now. Urine output has also been scanty. Creatinine has gone up mildly. PHYSICAL EXAMINATION: HEART: S1 and S2 heard normally. Short systolic murmur. LUNGS: Reveal fair air entry. ABDOMEN: Soft. LOWER EXTREMITIES: Reveal diminished pulses. PLAN: To continue supportive care, incentive spirometry, gradually wean off the pressors and hydrate him cautiously for now, and consider Lasix later in the day. MMODL / IJN: [id number] /
[2023-09-04] MEDS: ALBUMIN HUMAN 25% 50 ML in EMPTY BAG 1 BAG IVPB ONE (11:00)
[2023-09-04 11:07] LABS: Glucose,Whole Blood 149 mg/dL (70-110)
[2023-09-04] MEDS: traMADol 50 MG TAB PO PRN (11:35)
[2023-09-04] MEDS: FUROSEMIDE 10 MG/ML 2 ML VIAL IV ONE (11:45)
--- NOTE | 2023-09-04 12:02 | P.PN ---
Subjective Progress Note Date: 09/04/23 * 63-year-old gentleman with past medical history significant for coronary artery disease, chronic congestive heart failure with ejection fraction of 30%, hypertension hyperlipidemia diabetes mellitus obesity bipolar disorder cardiomyopathy developmental delay history of nicotine dependence who has been admitted with shortness of breath and lower extremity edema. Patient underwent cardiac catheterization right heart catheterization and intra-aortic balloon pump. * Patient has comorbidities including diabetes mellitus type 2, peripheral arterial disease, bipolar disorder, history of anxiety. * Patient to undergo myocardial revascularization 09/02/2023. * 09/03/23 : Patient admitted to medical ICU. Patient was successfully extubated postprocedure. S/p intra-aortic balloon pump which remains in place through right femoral access. Patient remains on norepinephrine drip, Primacor drip, vasopressin. Bilateral chest tubes remained in place. Followed up by medical ICU and cardiac surgery. Follow-up blood work obtained including WBC 15.2 hemoglobin 9.2 platelet count of 98, serum chemistry sodium 141 potassium 4.7 carbon dioxide 24 BUN 26 creatinine 1.1 blood glucose 118-1 33 * 09/04/23: Patient seen and evaluated in medical ICU room 266, patient continues to remain on Levophed, vasopressin and pressor support. Blood work reviewed WBC 17.7 hemoglobin 9.4 platelet 117. Serum chemistry showed sodium 137 potassium 4.9 carbon dioxide 18 BUN 34 creatinine 1.52 blood glucose 123. Overnight patient was refusing to participate with care, patient counseled by cardiac surgery team as well. Brother at bedside, patient does follow commands, care plan discussed with nursing staff PHYSICAL EXAMINATION: GENERAL: The patient is alert and oriented x3, ill appearance, nasal cannula in place HEENT: Pupils are round and equally reacting to light. EOMI. CARDIOVASCULAR: S1 and S2 present. Chest brace in place PULMONARY: Decreased breath sounds bilaterally, chest tube in place ABDOMEN: Soft, nontender, nondistended, normoactive bowel sounds. No palpable organomegaly. MUSCULOSKELETAL: No joint swelling or deformity. EXTREMITIES: No cyanosis, clubbing, or pedal edema. NEUROLOGICAL: Gross neurological examination did not reveal any focal deficits. SKIN: No rashes. Assessment and plan * Multivessel coronary artery disease, ischemic cardiomyopathy ejection fraction 30% * s/p CABG 09/02/2023 * Hypertension * Hyperlipidemia * Diabetes mellitus type 2 with HbA1c 7.4 * History of peripheral arterial disease * Bipolar disorder * History of anxiety * Patient is s/p CABG, postprocedure continue patient on aspirin, Plavix, statin, on metoprolol with holding parameters , Postprocedure intra-aortic balloon removed on 09/02 * Postprocedure continue patient on continuous insulin infusion will transition to subcu insulin based on blood glucose levels * Post CABG patient remains on Levophed, vasopressin, Primacor, to be weaned off as tolerated * Complex patient continue management and medical ICU Objective - Vital Signs Vital signs: Vital Signs Temp 98.6 F 09/04/23 08:00 Pulse 105 H 09/04/23 08:15 Resp 13 09/04/23 08:15 BP 110/56 09/04/23 08:15 Pulse Ox 100 09/04/23 08:15 FiO2 40 09/02/23 20:33 Intake & Output 09/03/23 09/04/23 09/04/23 18:59 06:59 18:59 Intake Total 2201.363 1421.560 395.173 Output Total 685 1045 80 Balance 1516.363 376.560 315.173 Intake: IV 928 1138 148 ACETAMINOPHEN IV (For NPO 100 ) 1,000 mg In Empty Bag 1 bag @ 400 mls/hr IVPB Q6HR ZAID Rx#:[id number] Albumin Human 5% 250 ml 250 In Empty Bag 1 bag @ 250 mls/hr IVPB Q1HR PRN Rx#: [id number] Lactated Ringers 1,000 ml 600 600 100 @ 20 mls/hr IV .Q24H ZAID Rx#:[id number] NS cardiac output 220 80 30 pressure bags 108 108 18 Intake, IV Titration 673.363 283.560 247.173 Amount ACETAMINOPHEN IV (For NPO 100 ) 1,000 mg In Empty Bag 1 bag @ 400 mls/hr IVPB Q6HR ZAID Rx#:[id number] Calcium Gluconate in NaCl 100 1 gm In Saline 1 100ml. bag @ 100 mls/hr IVPB ONCE ONE Rx#:[id number] Insulin Regular 100 unit 29.627 8.704 13.972 In Sodium Chloride 0.9% 100 ml @ Per Protocol IV .Q0M ZAID Rx#:[id number] Milrinone-D5w Pmx 20 mg 64.9 138.856 In Dextrose/Water 1 100ml .bag @ 0.25 MCG/KG/MIN 5. 885 mls/hr IV .Q17H ZAID Rx#:[id number] Norepinephrine 4 mg In 229.386 86.326 233.201 Sodium Chloride 0.9% 250 ml @ 0.02 MCG/KG/MIN 5. 979 mls/hr IV .Q24H ZAID Rx#:[id number] Vasopressin 20 unit In 99.45 49.674 Sodium Chloride 0.9% 50 ml @ 0.04 UNITS/MIN 6.12 mls/hr IV .Q8H20M [facility]AID Rx# :[id number] ceFAZolin 2 gm In Sodium 50 Chloride 0.9% 50 ml @ 100 mls/hr IVPB Q8HR ZAID Rx# :[id number] Oral 600 Output: Chest Tube Drainage 400 720 60 Lt and Rt Pleural CT 250 620 50 Mediastinal 150 100 10 Urine 285 325 20 Other: Voiding Method Indwelling Catheter Indwelling Catheter Indwelling Catheter ABP, PAP, CO, CI - Last Documented Arterial Blood Pressure 83/58 Pulmonary Artery Pressure 44/25 Cardiac Output 5 Cardiac Index 2.8 - Labs CBC & Chem 7: 09/04/23 04:14 09/04/23 04:14 Labs: Abnormal Lab Results - Last 24 Hours (Table) 09/01/23 09/02/23 09/02/23 Range/Units 14:32 08:35 09:30 WBC (3.8-10.6) k/uL RBC (4.30-5.90) m/uL Hgb (13.0-17.5) gm/dL Hct (39.0-53.0) % Plt Count (150-450) k/uL Neutrophils # (1.3-7.7) k/uL Monocytes # (0-1.0) k/uL ABG pH 7.33 L (7.35-7.45) ABG pCO2 34 L (35-45) mmHg ABG pO2 174 H 169 H (83-108) mmHg ABG HCO3 (21-25) mmol/L ABG O2 Saturation 99.0 H 99.1 H (94-97) % ABG Hematocrit 33 L 32 L (34.0-46.0) % ABG Potassium (3.4-4.5) mmol/L ABG Ionized Calcium (4.5-5.3) mg/dL ABG Glucose 100 H 112 H (75-99) mg/dL ABG Lactic Acid (0.5-1.6) mmol/L Hemoglobin 10.7 L 10.3 L (13.0-17.5) gm/dL Chloride (98-107) mmol/L Carbon Dioxide (22-30) mmol/L BUN (9-20) mg/dL Creatinine (0.66-1.25) mg/dL Glucose (74-99) mg/dL POC Glucose (mg/dL) (70-110) mg/dL Calcium (8.4-10.2) mg/dL Total Protein (6.3-8.2) g/dL Arterial Blood Potassium (3.4-4.5) mmol/L Arterial Blood Glucose 100 H 112 H (75-99) mg/dL Crossmatch See Detail 09/02/23 09/02/23 09/02/23 Range/Units 10:20 10:50 11:32 WBC (3.8-10.6) k/uL RBC (4.30-5.90) m/uL Hgb (13.0-17.5) gm/dL Hct (39.0-53.0) % Plt Count (150-450) k/uL Neutrophils # (1.3-7.7) k/uL Monocytes # (0-1.0) k/uL ABG pH (7.35-7.45) ABG pCO2 33 L (35-45) mmHg ABG pO2 >420 H >420 H 320 H (83-108) mmHg ABG HCO3 20 L (21-25) mmol/L ABG O2 Saturation >99.4 H >99.4 H >99.4 H (94-97) % ABG Hematocrit 23 L 25 L 24 L (34.0-46.0) % ABG Potassium (3.4-4.5) mmol/L ABG Ionized Calcium 4.0 L 4.3 L 4.2 L (4.5-5.3) mg/dL ABG Glucose 133 H 132 H 132 H (75-99) mg/dL ABG Lactic Acid (0.5-1.6) mmol/L Hemoglobin 7.5 L 8.1 L 7.9 L (13.0-17.5) gm/dL Chloride (98-107) mmol/L Carbon Dioxide (22-30) mmol/L BUN (9-20) mg/dL Creatinine (0.66-1.25) mg/dL Glucose (74-99) mg/dL POC Glucose (mg/dL) (70-110) mg/dL Calcium (8.4-10.2) mg/dL Total Protein (6.3-8.2) g/dL Arterial Blood Potassium (3.4-4.5) mmol/L Arterial Blood Glucose 133 H 132 H 132 H (75-99) mg/dL Crossmatch 09/02/23 09/02/23 09/02/23 Range/Units 12:16 12:23 12:54 WBC (3.8-10.6) k/uL RBC (4.30-5.90) m/uL Hgb (13.0-17.5) gm/dL Hct (39.0-53.0) % Plt Count (150-450) k/uL Neutrophils # (1.3-7.7) k/uL Monocytes # (0-1.0) k/uL ABG pH (7.35-7.45) ABG pCO2 33 L (35-45) mmHg ABG pO2 >420 H >420 H >420 H (83-108) mmHg ABG HCO3 (21-25) mmol/L ABG O2 Saturation >99.4 H >99.4 H >99.4 H (94-97) % ABG Hematocrit 20 L* 23 L 19 L* (34.0-46.0) % ABG Potassium 4.8 H 4.8 H (3.4-4.5) mmol/L ABG Ionized Calcium 4.1 L 4.2 L (4.5-5.3) mg/dL ABG Glucose 124 H 129 H 161 H (75-99) mg/dL ABG Lactic Acid 3.1 H* (0.5-1.6) mmol/L Hemoglobin 6.7 L* 7.3 L 6.3 L* (13.0-17.5) gm/dL Chloride (98-107) mmol/L Carbon Dioxide (22-30) mmol/L BUN (9-20) mg/dL Creatinine (0.66-1.25) mg/dL Glucose (74-99) mg/dL POC Glucose (mg/dL) (70-110) mg/dL Calcium (8.4-10.2) mg/dL Total Protein (6.3-8.2) g/dL Arterial Blood Potassium 4.8 H 4.8 H (3.4-4.5) mmol/L Arterial Blood Glucose 124 H 129 H 161 H (75-99) mg/dL Crossmatch 09/02/23 09/02/23 09/03/23 Range/Units 13:04 13:53 09:48 WBC (3.8-10.6) k/uL RBC (4.30-5.90) m/uL Hgb (13.0-17.5) gm/dL Hct (39.0-53.0) % Plt Count (150-450) k/uL Neutrophils # (1.3-7.7) k/uL Monocytes # (0-1.0) k/uL ABG pH (7.35-7.45) ABG pCO2 (35-45) mmHg ABG pO2 >420 H 181 H (83-108) mmHg ABG HCO3 26 H (21-25) mmol/L ABG O2 Saturation >99.4 H 99.3 H (94-97) % ABG Hematocrit 26 L (34.0-46.0) % ABG Potassium (3.4-4.5) mmol/L ABG Ionized Calcium 7.2 H* (4.5-5.3) mg/dL ABG Glucose 175 H 104 H (75-99) mg/dL ABG Lactic Acid 3.6 H* 2.3 H* (0.5-1.6) mmol/L Hemoglobin 8.5 L 11.1 L (13.0-17.5) gm/dL Chloride (98-107) mmol/L Carbon Dioxide (22-30) mmol/L BUN (9-20) mg/dL Creatinine (0.66-1.25) mg/dL Glucose (74-99) mg/dL POC Glucose (mg/dL) 115 H (70-110) mg/dL Calcium (8.4-10.2) mg/dL Total Protein (6.3-8.2) g/dL Arterial Blood Potassium (3.4-4.5) mmol/L Arterial Blood Glucose 175 H 104 H (75-99) mg/dL Crossmatch 09/03/23 09/03/23 09/03/23 Range/Units 12:07 13:22 13:58 WBC (3.8-10.6) k/uL RBC (4.30-5.90) m/uL Hgb (13.0-17.5) gm/dL Hct (39.0-53.0) % Plt Count (150-450) k/uL Neutrophils # (1.3-7.7) k/uL Monocytes # (0-1.0) k/uL ABG pH (7.35-7.45) ABG pCO2 (35-45) mmHg ABG pO2 (83-108) mmHg ABG HCO3 (21-25) mmol/L ABG O2 Saturation (94-97) % ABG Hematocrit (34.0-46.0) % ABG Potassium (3.4-4.5) mmol/L ABG Ionized Calcium (4.5-5.3) mg/dL ABG Glucose (75-99) mg/dL ABG Lactic Acid (0.5-1.6) mmol/L Hemoglobin (13.0-17.5) gm/dL Chloride (98-107) mmol/L Carbon Dioxide (22-30) mmol/L BUN (9-20) mg/dL Creatinine (0.66-1.25) mg/dL Glucose (74-99) mg/dL POC Glucose (mg/dL) 150 H 138 H 137 H (70-110) mg/dL Calcium (8.4-10.2) mg/dL Total Protein (6.3-8.2) g/dL Arterial Blood Potassium (3.4-4.5) mmol/L Arterial Blood Glucose (75-99) mg/dL Crossmatch 09/03/23 09/03/23 09/03/23 Range/Units 14:03 14:03 15:05 WBC 19.5 H (3.8-10.6) k/uL RBC 2.83 L (4.30-5.90) m/uL Hgb 8.8 L (13.0-17.5) gm/dL Hct 26.2 L (39.0-53.0) % Plt Count 113 L (150-450) k/uL Neutrophils # (1.3-7.7) k/uL Monocytes # (0-1.0) k/uL ABG pH (7.35-7.45) ABG pCO2 (35-45) mmHg ABG pO2 (83-108) mmHg ABG HCO3 (21-25) mmol/L ABG O2 Saturation (94-97) % ABG Hematocrit (34.0-46.0) % ABG Potassium (3.4-4.5) mmol/L ABG Ionized Calcium (4.5-5.3) mg/dL ABG Glucose (75-99) mg/dL ABG Lactic Acid (0.5-1.6) mmol/L Hemoglobin (13.0-17.5) gm/dL Chloride 109 H (98-107) mmol/L Carbon Dioxide 16 L (22-30) mmol/L BUN 28 H (9-20) mg/dL Creatinine (0.66-1.25) mg/dL Glucose 123 H (74-99) mg/dL POC Glucose (mg/dL) 126 H (70-110) mg/dL Calcium 8.1 L (8.4-10.2) mg/dL Total Protein (6.3-8.2) g/dL Arterial Blood Potassium (3.4-4.5) mmol/L Arterial Blood Glucose (75-99) mg/dL Crossmatch 09/03/23 09/03/23 09/03/23 Range/Units 15:42 16:37 17:56 WBC (3.8-10.6) k/uL RBC (4.30-5.90) m/uL Hgb (13.0-17.5) gm/dL Hct (39.0-53.0) % Plt Count (150-450) k/uL Neutrophils # (1.3-7.7) k/uL Monocytes # (0-1.0) k/uL ABG pH (7.35-7.45) ABG pCO2 (35-45) mmHg ABG pO2 126 H (83-108) mmHg ABG HCO3 (21-25) mmol/L ABG O2 Saturation 98.4 H (94-97) % ABG Hematocrit (34.0-46.0) % ABG Potassium (3.4-4.5) mmol/L ABG Ionized Calcium (4.5-5.3) mg/dL ABG Glucose (75-99) mg/dL ABG Lactic Acid (0.5-1.6) mmol/L Hemoglobin (13.0-17.5) gm/dL Chloride (98-107) mmol/L Carbon Dioxide (22-30) mmol/L BUN (9-20) mg/dL Creatinine (0.66-1.25) mg/dL Glucose (74-99) mg/dL POC Glucose (mg/dL) 124 H 120 H (70-110) mg/dL Calcium (8.4-10.2) mg/dL Total Protein (6.3-8.2) g/dL Arterial Blood Potassium (3.4-4.5) mmol/L Arterial Blood Glucose (75-99) mg/dL Crossmatch 09/03/23 09/03/23 09/03/23 Range/Units 19:16 21:05 22:09 WBC (3.8-10.6) k/uL RBC (4.30-5.90) m/uL Hgb (13.0-17.5) gm/dL Hct (39.0-53.0) % Plt Count (150-450) k/uL Neutrophils # (1.3-7.7) k/uL Monocytes # (0-1.0) k/uL ABG pH (7.35-7.45) ABG pCO2 (35-45) mmHg ABG pO2 (83-108) mmHg ABG HCO3 (21-25) mmol/L ABG O2 Saturation (94-97) % ABG Hematocrit (34.0-46.0) % ABG Potassium (3.4-4.5) mmol/L ABG Ionized Calcium (4.5-5.3) mg/dL ABG Glucose (75-99) mg/dL ABG Lactic Acid (0.5-1.6) mmol/L Hemoglobin (13.0-17.5) gm/dL Chloride (98-107) mmol/L Carbon Dioxide (22-30) mmol/L BUN (9-20) mg/dL Creatinine (0.66-1.25) mg/dL Glucose (74-99) mg/dL POC Glucose (mg/dL) 116 H 134 H 139 H (70-110) mg/dL Calcium (8.4-10.2) mg/dL Total Protein (6.3-8.2) g/dL Arterial Blood Potassium (3.4-4.5) mmol/L Arterial Blood Glucose (75-99) mg/dL Crossmatch 09/03/23 09/04/23 09/04/23 Range/Units 22:56 00:04 00:59 WBC (3.8-10.6) k/uL RBC (4.30-5.90) m/uL Hgb (13.0-17.5) gm/dL Hct (39.0-53.0) % Plt Count (150-450) k/uL Neutrophils # (1.3-7.7) k/uL Monocytes # (0-1.0) k/uL ABG pH (7.35-7.45) ABG pCO2 (35-45) mmHg ABG pO2 (83-108) mmHg ABG HCO3 (21-25) mmol/L ABG O2 Saturation (94-97) % ABG Hematocrit (34.0-46.0) % ABG Potassium (3.4-4.5) mmol/L ABG Ionized Calcium (4.5-5.3) mg/dL ABG Glucose (75-99) mg/dL ABG Lactic Acid (0.5-1.6) mmol/L Hemoglobin (13.0-17.5) gm/dL Chloride (98-107) mmol/L Carbon Dioxide (22-30) mmol/L BUN (9-20) mg/dL Creatinine (0.66-1.25) mg/dL Glucose (74-99) mg/dL POC Glucose (mg/dL) 124 H 135 H 127 H (70-110) mg/dL Calcium (8.4-10.2) mg/dL Total Protein (6.3-8.2) g/dL Arterial Blood Potassium (3.4-4.5) mmol/L Arterial Blood Glucose (75-99) mg/dL Crossmatch 09/04/23 09/04/23 09/04/23 Range/Units 02:01 03:00 04:06 WBC (3.8-10.6) k/uL RBC (4.30-5.90) m/uL Hgb (13.0-17.5) gm/dL Hct (39.0-53.0) % Plt Count (150-450) k/uL Neutrophils # (1.3-7.7) k/uL Monocytes # (0-1.0) k/uL ABG pH (7.35-7.45) ABG pCO2 (35-45) mmHg ABG pO2 (83-108) mmHg ABG HCO3 (21-25) mmol/L ABG O2 Saturation (94-97) % ABG Hematocrit (34.0-46.0) % ABG Potassium (3.4-4.5) mmol/L ABG Ionized Calcium (4.5-5.3) mg/dL ABG Glucose (75-99) mg/dL ABG Lactic Acid (0.5-1.6) mmol/L Hemoglobin (13.0-17.5) gm/dL Chloride (98-107) mmol/L Carbon Dioxide (22-30) mmol/L BUN (9-20) mg/dL Creatinine (0.66-1.25) mg/dL Glucose (74-99) mg/dL POC Glucose (mg/dL) 134 H 133 H 130 H (70-110) mg/dL Calcium (8.4-10.2) mg/dL Total Protein (6.3-8.2) g/dL Arterial Blood Potassium (3.4-4.5) mmol/L Arterial Blood Glucose (75-99) mg/dL Crossmatch 09/04/23 09/04/23 09/04/23 Range/Units 04:14 04:14 05:04 WBC 17.7 H (3.8-10.6) k/uL RBC 3.11 L (4.30-5.90) m/uL Hgb 9.4 L (13.0-17.5) gm/dL Hct 29.4 L (39.0-53.0) % Plt Count 117 L (150-450) k/uL Neutrophils # 15.1 H (1.3-7.7) k/uL Monocytes # 1.1 H (0-1.0) k/uL ABG pH (7.35-7.45) ABG pCO2 (35-45) mmHg ABG pO2 (83-108) mmHg ABG HCO3 (21-25) mmol/L ABG O2 Saturation (94-97) % ABG Hematocrit (34.0-46.0) % ABG Potassium (3.4-4.5) mmol/L ABG Ionized Calcium (4.5-5.3) mg/dL ABG Glucose (75-99) mg/dL ABG Lactic Acid (0.5-1.6) mmol/L Hemoglobin (13.0-17.5) gm/dL Chloride (98-107) mmol/L Carbon Dioxide 18 L (22-30) mmol/L BUN 34 H (9-20) mg/dL Creatinine 1.52 H (0.66-1.25) mg/dL Glucose 123 H (74-99) mg/dL POC Glucose (mg/dL) 131 H (70-110) mg/dL Calcium (8.4-10.2) mg/dL Total Protein 5.5 L (6.3-8.2) g/dL Arterial Blood Potassium (3.4-4.5) mmol/L Arterial Blood Glucose (75-99) mg/dL Crossmatch 09/04/23 09/04/23 09/04/23 Range/Units 05:43 06:57 07:55 WBC (3.8-10.6) k/uL RBC (4.30-5.90) m/uL Hgb (13.0-17.5) gm/dL Hct (39.0-53.0) % Plt Count (150-450) k/uL Neutrophils # (1.3-7.7) k/uL Monocytes # (0-1.0) k/uL ABG pH (7.35-7.45) ABG pCO2 (35-45) mmHg ABG pO2 (83-108) mmHg ABG HCO3 (21-25) mmol/L ABG O2 Saturation (94-97) % ABG Hematocrit (34.0-46.0) % ABG Potassium (3.4-4.5) mmol/L ABG Ionized Calcium (4.5-5.3) mg/dL ABG Glucose (75-99) mg/dL ABG Lactic Acid (0.5-1.6) mmol/L Hemoglobin (13.0-17.5) gm/dL Chloride (98-107) mmol/L Carbon Dioxide (22-30) mmol/L BUN (9-20) mg/dL Creatinine (0.66-1.25) mg/dL Glucose (74-99) mg/dL POC Glucose (mg/dL) 134 H 118 H 119 H (70-110) mg/dL Calcium (8.4-10.2) mg/dL Total Protein (6.3-8.2) g/dL Arterial Blood Potassium (3.4-4.5) mmol/L Arterial Blood Glucose (75-99) mg/dL Crossmatch Microbiology - Last 24 Hours (Table) 09/01/23 10:26 Nasal Screen MRSA/MSSA - Final Nasopharyngeal Swab
[2023-09-04 12:49] LABS: Glucose,Whole Blood 153 mg/dL (70-110)
--- NOTE | 2023-09-04 13:32 | P.PN ---
Subjective Progress Note Date: 09/04/23 Principal diagnosis: POD #2 off-pump coronary artery bypass grafting surgery x 3, left internal thoracic artery (in-situ) sequential to diagonal and left anterior descending coronary artery, right greater saphenous vein from aorta to obtuse marginal artery #2 63-year-old male patient, was brought into the intensive care unit after having an antibiotic balloon pump inserted this morning and this was done in preparation for coronary artery bypass surgery. The patient is known to have CAD, chronic CHF with impaired ejection fraction of 30 to 35%. The patient has been hospitalized with [facility] and an earlier cardiac catheterization from April 2023 showed a 70% left main, 70% proximal LAD, 30% circumflex and 70% obtuse marginal 1 and 60% mid RCA. The patient has impaired LV function with an EF around 30 to 35% along with mild to moderate MR, and s evere pulm hypertension. The patient is scheduled to undergo coronary artery bypass surgery tomorrow. He is currently on room air oxygen. Free of any chest pain. Hemodynamically stable. Augmented blood pressure is around 80. He has some developmental delay and his other comorbid conditions include diabetes mellitus type 2, hypertension and hyperlipidemia. Blood work shows a white cell count of 9, hemoglobin 11.8, platelet count of 206, normal coagulation profile, BUN of 27 with a creatinine of 1 and sodium levels at 138. LFTs are normal. His CAT scan of the chest that was done on 07/16/2023 showed cardiomegaly with small right and left-sided pleural effusion. This is consistent with CHF. No mediastinal lymphadenopathy. The patient is seen today September 02, 2023 in follow-up in the intensive care unit following surgery. He had undergone an on pump coronary artery bypass grafting x 3 with a left internal thoracic artery sequential to diagonal and the LAD. Right SVG from the aorta to the obtuse marginal #1. Left atrial appendage ligation and clipping. He remains intubated on the mechanical ventilator and assist-control mode at a rate of 14, tidal volume 500, FiO2 40% and a PEEP of 10. He remains on propofol at 20 mcg/kg/min. Lactated Ringer's at 50 MLS per hour. He is requiring vasopressin at 0.04 units/min. Insulin drip at 1 unit/h. Norepinephrine at 0.05 mcg/kg/min. Milrinone at 0.25 mcg/kg/min intra-aortic balloon pump remains in place. Mediastinal and right and left split chest tubes remain in place. Cardiac output is 4.7. Cardiac index 2.6. Received albumin. Receiving cefazolin. Heparin for DVT prophylaxis. White count 11.7. Hemoglobin 11.5. Platelets 84,000. INR 1.4. Sodium 141. Potassium 3.7. Bicarb 22. BUN 22. Creatinine 0.88. Glucose 101. X-ray no overt failure, pneumothorax or sizable consolidation. ABG's are pending. Patient was today on 09/03/2023, patient was extubated last night uneventfully, patient is now on 2 L nasal cannula, his intra-aortic balloon has been removed today patient remains on pressors and on inotropes. Still requiring norepinephrine at 0.02 mcg/kg/min still on milrinone 0.25 mcg/kg/min and on 0.04 units/min of vasopressin. Cardiac output today is 6.5 cardiac index is 3.7 PA pressure 41/17 CVP of 15. Continues to have mediastinal left and right-sided pleural chest tubes in place, had about 780 mL output since surgery. Chest x- ray is showing mostly postoperative changes labs were all reviewed. WBC count is 15.2 hemoglobin 9.2. Basic metabolic profile is normal, creatinine 1.10 up from 0.88 yesterday Reevaluated today on 09/04/2023, patient remains in the ICU on 3 L nasal cannula, insulin drip at 1.5 units/h still receiving norepinephrine at 0.08 mcg/kg/min milrinone 0.1 mcg/kg/min vasopressin at 0.03 units/min. Cardiac output is 5.0 cardiac index 2.8, patient remains marginal at best, he is sitting at the bedside chair, does not seem to be in distress, on 3 L nasal cannula. Chest x- ray showed no evidence of pulmonary edema no evidence of pneumonia he does have a small tiny apical left pneumothorax. WBC count is 17.7 hemoglobin 9.4. Basic metabolic profile is normal however his BUN is 34 creatinine is 1.52, apparently the patient does have sustained some acute kidney injury most likely related to hypotension/acute tubular necrosis. Objective - Vital Signs Vital signs: Vital Signs Temp 98.6 F 09/04/23 08:00 Pulse 93 09/04/23 12:11 Resp 11 L 09/04/23 11:00 BP 105/53 09/04/23 11:00 Pulse Ox 100 09/04/23 11:00 FiO2 40 09/02/23 20:33 Intake & Output 09/03/23 09/04/23 09/04/23 18:59 06:59 18:59 Intake Total 2201.363 1421.560 650.184 Output Total 685 1045 165 Balance 1516.363 376.560 485.184 Weight 79.5 kg Intake: IV 928 1138 325 ACETAMINOPHEN IV (For NPO 100 ) 1,000 mg In Empty Bag 1 bag @ 400 mls/hr IVPB Q6HR [facility] Rx#:[id number] Albumin Human 5% 250 ml 250 In Empty Bag 1 bag @ 250 mls/hr IVPB Q1HR PRN Rx#: [id number] Lactated Ringers 1,000 ml 600 600 250 @ 20 mls/hr IV .Q24H [facility] Rx#:[id number] NS cardiac output 220 80 30 pressure bags 108 108 45 Intake, IV Titration 673.363 283.560 325.184 Amount ACETAMINOPHEN IV (For NPO 100 ) 1,000 mg In Empty Bag 1 bag @ 400 mls/hr IVPB Q6HR [facility] Rx#:[id number] Calcium Gluconate in NaCl 100 1 gm In Saline 1 100ml. bag @ 100 mls/hr IVPB ONCE ONE Rx#:[id number] Insulin Regular 100 unit 29.627 8.704 20.184 In Sodium Chloride 0.9% 100 ml @ Per Protocol IV .Q0M [facility] Rx#:[id number] Milrinone-D5w Pmx 20 mg 64.9 138.856 In Dextrose/Water 1 100ml .bag @ 0.25 MCG/KG/MIN 5. 885 mls/hr IV .Q17H [facility] Rx#:[id number] Norepinephrine 4 mg In 229.386 86.326 254.000 Sodium Chloride 0.9% 250 ml @ 0.02 MCG/KG/MIN 5. 979 mls/hr IV .Q24H [facility] Rx#:[id number] Vasopressin 20 unit In 99.45 49.674 51 Sodium Chloride 0.9% 50 ml @ 0.04 UNITS/MIN 6.12 mls/hr IV .Q8H20M [facility] Rx# :[id number] ceFAZolin 2 gm In Sodium 50 Chloride 0.9% 50 ml @ 100 mls/hr IVPB Q8HR [facility] Rx# :[id number] Oral 600 Output: Chest Tube Drainage 400 720 [address] Ple[address] 250 620 50 Mediastinal 150 100 10 Urine 285 325 105 Other: Voiding Method Indwelling Catheter Indwelling Catheter Indwelling Catheter ABP, PAP, CO, CI - Last Documented Arterial Blood Pressure 83/58 Pulmonary Artery Pressure 32/15 Cardiac Output 5 Cardiac Index 2.8 - Exam GENERAL EXAM: Reveals 63-year-old white male extubated in no distress on 3 L nasal cannula HEAD: Normocephalic. EYES: PERRLA, EOMI. NOSE: Clear with pink turbinates. THROAT: No erythema or exudates. NECK: No masses, no JVD. Left IJ Gunnison-Isabell catheter in place. CHEST: Sternal dressing dry and intact. Heart hugger in place. LUNGS: Diminished breath sound bilaterally no rhonchi no wheezes CVS: S1 and S2 normal with no audible murmur, regular rhythm. ABDOMEN: No hepatosplenomegaly, diminished bowel sounds, no guarding or rigidity. SKIN: No rashes CENTRAL NERVOUS SYSTEM: Alert and oriented x 3 no gross focal deficits EXTREMITIES: no clubbing edema or cyanosis - Labs CBC & Chem 7: 09/04/23 04:14 09/04/23 04:14 Labs: Abnormal Lab Results - Last 24 Hours (Table) 09/01/23 09/02/23 09/02/23 Range/Units 14:32 08:35 09:30 WBC (3.8-10.6) k/uL RBC (4.30-5.90) m/uL Hgb (13.0-17.5) gm/dL Hct (39.0-53.0) % Plt Count (150-450) k/uL Neutrophils # (1.3-7.7) k/uL Monocytes # (0-1.0) k/uL ABG pH 7.33 L (7.35-7.45) ABG pCO2 34 L (35-45) mmHg ABG pO2 174 H 169 H (83-108) mmHg ABG HCO3 (21-25) mmol/L ABG O2 Saturation 99.0 H 99.1 H (94-97) % ABG Hematocrit 33 L 32 L (34.0-46.0) % ABG Potassium (3.4-4.5) mmol/L ABG Ionized Calcium (4.5-5.3) mg/dL ABG Glucose 100 H 112 H (75-99) mg/dL ABG Lactic Acid (0.5-1.6) mmol/L Hemoglobin 10.7 L 10.3 L (13.0-17.5) gm/dL Chloride (98-107) mmol/L Carbon Dioxide (22-30) mmol/L BUN (9-20) mg/dL Creatinine (0.66-1.25) mg/dL Glucose (74-99) mg/dL POC Glucose (mg/dL) (70-110) mg/dL Calcium (8.4-10.2) mg/dL Total Protein (6.3-8.2) g/dL Arterial Blood Potassium (3.4-4.5) mmol/L Arterial Blood Glucose 100 H 112 H (75-99) mg/dL Crossmatch See Detail 09/02/23 09/02/23 09/02/23 Range/Units 10:20 10:50 11:32 WBC (3.8-10.6) k/uL RBC (4.30-5.90) m/uL Hgb (13.0-17.5) gm/dL Hct (39.0-53.0) % Plt Count (150-450) k/uL Neutrophils # (1.3-7.7) k/uL Monocytes # (0-1.0) k/uL ABG pH (7.35-7.45) ABG pCO2 33 L (35-45) mmHg ABG pO2 >420 H >420 H 320 H (83-108) mmHg ABG HCO3 20 L (21-25) mmol/L ABG O2 Saturation >99.4 H >99.4 H >99.4 H (94-97) % ABG Hematocrit 23 L 25 L 24 L (34.0-46.0) % ABG Potassium (3.4-4.5) mmol/L ABG Ionized Calcium 4.0 L 4.3 L 4.2 L (4.5-5.3) mg/dL ABG Glucose 133 H 132 H 132 H (75-99) mg/dL ABG Lactic Acid (0.5-1.6) mmol/L Hemoglobin 7.5 L 8.1 L 7.9 L (13.0-17.5) gm/dL Chloride (98-107) mmol/L Carbon Dioxide (22-30) mmol/L BUN (9-20) mg/dL Creatinine (0.66-1.25) mg/dL Glucose (74-99) mg/dL POC Glucose (mg/dL) (70-110) mg/dL Calcium (8.4-10.2) mg/dL Total Protein (6.3-8.2) g/dL Arterial Blood Potassium (3.4-4.5) mmol/L Arterial Blood Glucose 133 H 132 H 132 H (75-99) mg/dL Crossmatch 09/02/23 09/02/23 09/02/23 Range/Units 12:16 12:23 12:54 WBC (3.8-10.6) k/uL RBC (4.30-5.90) m/uL Hgb (13.0-17.5) gm/dL Hct (39.0-53.0) % Plt Count (150-450) k/uL Neutrophils # (1.3-7.7) k/uL Monocytes # (0-1.0) k/uL ABG pH (7.35-7.45) ABG pCO2 33 L (35-45) mmHg ABG pO2 >420 H >420 H >420 H (83-108) mmHg ABG HCO3 (21-25) mmol/L ABG O2 Saturation >99.4 H >99.4 H >99.4 H (94-97) % ABG Hematocrit 20 L* 23 L 19 L* (34.0-46.0) % ABG Potassium 4.8 H 4.8 H (3.4-4.5) mmol/L ABG Ionized Calcium 4.1 L 4.2 L (4.5-5.3) mg/dL ABG Glucose 124 H 129 H 161 H (75-99) mg/dL ABG Lactic Acid 3.1 H* (0.5-1.6) mmol/L Hemoglobin 6.7 L* 7.3 L 6.3 L* (13.0-17.5) gm/dL Chloride (98-107) mmol/L Carbon Dioxide (22-30) mmol/L BUN (9-20) mg/dL Creatinine (0.66-1.25) mg/dL Glucose (74-99) mg/dL POC Glucose (mg/dL) (70-110) mg/dL Calcium (8.4-10.2) mg/dL Total Protein (6.3-8.2) g/dL Arterial Blood Potassium 4.8 H 4.8 H (3.4-4.5) mmol/L Arterial Blood Glucose 124 H 129 H 161 H (75-99) mg/dL Crossmatch 09/02/23 09/02/23 09/03/23 Range/Units 13:04 13:53 13:58 WBC (3.8-10.6) k/uL RBC (4.30-5.90) m/uL Hgb (13.0-17.5) gm/dL Hct (39.0-53.0) % Plt Count (150-450) k/uL Neutrophils # (1.3-7.7) k/uL Monocytes # (0-1.0) k/uL ABG pH (7.35-7.45) ABG pCO2 (35-45) mmHg ABG pO2 >420 H 181 H (83-108) mmHg ABG HCO3 26 H (21-25) mmol/L ABG O2 Saturation >99.4 H 99.3 H (94-97) % ABG Hematocrit 26 L (34.0-46.0) % ABG Potassium (3.4-4.5) mmol/L ABG Ionized Calcium 7.2 H* (4.5-5.3) mg/dL ABG Glucose 175 H 104 H (75-99) mg/dL ABG Lactic Acid 3.6 H* 2.3 H* (0.5-1.6) mmol/L Hemoglobin 8.5 L 11.1 L (13.0-17.5) gm/dL Chloride (98-107) mmol/L Carbon Dioxide (22-30) mmol/L BUN (9-20) mg/dL Creatinine (0.66-1.25) mg/dL Glucose (74-99) mg/dL POC Glucose (mg/dL) 137 H (70-110) mg/dL Calcium (8.4-10.2) mg/dL Total Protein (6.3-8.2) g/dL Arterial Blood Potassium (3.4-4.5) mmol/L Arterial Blood Glucose 175 H 104 H (75-99) mg/dL Crossmatch 09/03/23 09/03/23 09/03/23 Range/Units 14:03 14:03 15:05 WBC 19.5 H (3.8-10.6) k/uL RBC 2.83 L (4.30-5.90) m/uL Hgb 8.8 L (13.0-17.5) gm/dL Hct 26.2 L (39.0-53.0) % Plt Count 113 L (150-450) k/uL Neutrophils # (1.3-7.7) k/uL Monocytes # (0-1.0) k/uL ABG pH (7.35-7.45) ABG pCO2 (35-45) mmHg ABG pO2 (83-108) mmHg ABG HCO3 (21-25) mmol/L ABG O2 Saturation (94-97) % ABG Hematocrit (34.0-46.0) % ABG Potassium (3.4-4.5) mmol/L ABG Ionized Calcium (4.5-5.3) mg/dL ABG Glucose (75-99) mg/dL ABG Lactic Acid (0.5-1.6) mmol/L Hemoglobin (13.0-17.5) gm/dL Chloride 109 H (98-107) mmol/L Carbon Dioxide 16 L (22-30) mmol/L BUN 28 H (9-20) mg/dL Creatinine (0.66-1.25) mg/dL Glucose 123 H (74-99) mg/dL POC Glucose (mg/dL) 126 H (70-110) mg/dL Calcium 8.1 L (8.4-10.2) mg/dL Total Protein (6.3-8.2) g/dL Arterial Blood Potassium (3.4-4.5) mmol/L Arterial Blood Glucose (75-99) mg/dL Crossmatch 09/03/23 09/03/23 09/03/23 Range/Units 15:42 16:37 17:56 WBC (3.8-10.6) k/uL RBC (4.30-5.90) m/uL Hgb (13.0-17.5) gm/dL Hct (39.0-53.0) % Plt Count (150-450) k/uL Neutrophils # (1.3-7.7) k/uL Monocytes # (0-1.0) k/uL ABG pH (7.35-7.45) ABG pCO2 (35-45) mmHg ABG pO2 126 H (83-108) mmHg ABG HCO3 (21-25) mmol/L ABG O2 Saturation 98.4 H (94-97) % ABG Hematocrit (34.0-46.0) % ABG Potassium (3.4-4.5) mmol/L ABG Ionized Calcium (4.5-5.3) mg/dL ABG Glucose (75-99) mg/dL ABG Lactic Acid (0.5-1.6) mmol/L Hemoglobin (13.0-17.5) gm/dL Chloride (98-107) mmol/L Carbon Dioxide (22-30) mmol/L BUN (9-20) mg/dL Creatinine (0.66-1.25) mg/dL Glucose (74-99) mg/dL POC Glucose (mg/dL) 124 H 120 H (70-110) mg/dL Calcium (8.4-10.2) mg/dL Total Protein (6.3-8.2) g/dL Arterial Blood Potassium (3.4-4.5) mmol/L Arterial Blood Glucose (75-99) mg/dL Crossmatch 09/03/23 09/03/23 09/03/23 Range/Units 19:16 21:05 22:09 WBC (3.8-10.6) k/uL RBC (4.30-5.90) m/uL Hgb (13.0-17.5) gm/dL Hct (39.0-53.0) % Plt Count (150-450) k/uL Neutrophils # (1.3-7.7) k/uL Monocytes # (0-1.0) k/uL ABG pH (7.35-7.45) ABG pCO2 (35-45) mmHg ABG pO2 (83-108) mmHg ABG HCO3 (21-25) mmol/L ABG O2 Saturation (94-97) % ABG Hematocrit (34.0-46.0) % ABG Potassium (3.4-4.5) mmol/L ABG Ionized Calcium (4.5-5.3) mg/dL ABG Glucose (75-99) mg/dL ABG Lactic Acid (0.5-1.6) mmol/L Hemoglobin (13.0-17.5) gm/dL Chloride (98-107) mmol/L Carbon Dioxide (22-30) mmol/L BUN (9-20) mg/dL Creatinine (0.66-1.25) mg/dL Glucose (74-99) mg/dL POC Glucose (mg/dL) 116 H 134 H 139 H (70-110) mg/dL Calcium (8.4-10.2) mg/dL Total Protein (6.3-8.2) g/dL Arterial Blood Potassium (3.4-4.5) mmol/L Arterial Blood Glucose (75-99) mg/dL Crossmatch 09/03/23 09/04/23 09/04/23 Range/Units 22:56 00:04 00:59 WBC (3.8-10.6) k/uL RBC (4.30-5.90) m/uL Hgb (13.0-17.5) gm/dL Hct (39.0-53.0) % Plt Count (150-450) k/uL Neutrophils # (1.3-7.7) k/uL Monocytes # (0-1.0) k/uL ABG pH (7.35-7.45) ABG pCO2 (35-45) mmHg ABG pO2 (83-108) mmHg ABG HCO3 (21-25) mmol/L ABG O2 Saturation (94-97) % ABG Hematocrit (34.0-46.0) % ABG Potassium (3.4-4.5) mmol/L ABG Ionized Calcium (4.5-5.3) mg/dL ABG Glucose (75-99) mg/dL ABG Lactic Acid (0.5-1.6) mmol/L Hemoglobin (13.0-17.5) gm/dL Chloride (98-107) mmol/L Carbon Dioxide (22-30) mmol/L BUN (9-20) mg/dL Creatinine (0.66-1.25) mg/dL Glucose (74-99) mg/dL POC Glucose (mg/dL) 124 H 135 H 127 H (70-110) mg/dL Calcium (8.4-10.2) mg/dL Total Protein (6.3-8.2) g/dL Arterial Blood Potassium (3.4-4.5) mmol/L Arterial Blood Glucose (75-99) mg/dL Crossmatch 09/04/23 09/04/23 09/04/23 Range/Units 02:01 03:00 04:06 WBC (3.8-10.6) k/uL RBC (4.30-5.90) m/uL Hgb (13.0-17.5) gm/dL Hct (39.0-53.0) % Plt Count (150-450) k/uL Neutrophils # (1.3-7.7) k/uL Monocytes # (0-1.0) k/uL ABG pH (7.35-7.45) ABG pCO2 (35-45) mmHg ABG pO2 (83-108) mmHg ABG HCO3 (21-25) mmol/L ABG O2 Saturation (94-97) % ABG Hematocrit (34.0-46.0) % ABG Potassium (3.4-4.5) mmol/L ABG Ionized Calcium (4.5-5.3) mg/dL ABG Glucose (75-99) mg/dL ABG Lactic Acid (0.5-1.6) mmol/L Hemoglobin (13.0-17.5) gm/dL Chloride (98-107) mmol/L Carbon Dioxide (22-30) mmol/L BUN (9-20) mg/dL Creatinine (0.66-1.25) mg/dL Glucose (74-99) mg/dL POC Glucose (mg/dL) 134 H 133 H 130 H (70-110) mg/dL Calcium (8.4-10.2) mg/dL Total Protein (6.3-8.2) g/dL Arterial Blood Potassium (3.4-4.5) mmol/L Arterial Blood Glucose (75-99) mg/dL Crossmatch 09/04/23 09/04/23 09/04/23 Range/Units 04:14 04:14 05:04 WBC 17.7 H (3.8-10.6) k/uL RBC 3.11 L (4.30-5.90) m/uL Hgb 9.4 L (13.0-17.5) gm/dL Hct 29.4 L (39.0-53.0) % Plt Count 117 L (150-450) k/uL Neutrophils # 15.1 H (1.3-7.7) k/uL Monocytes # 1.1 H (0-1.0) k/uL ABG pH (7.35-7.45) ABG pCO2 (35-45) mmHg ABG pO2 (83-108) mmHg ABG HCO3 (21-25) mmol/L ABG O2 Saturation (94-97) % ABG Hematocrit (34.0-46.0) % ABG Potassium (3.4-4.5) mmol/L ABG Ionized Calcium (4.5-5.3) mg/dL ABG Glucose (75-99) mg/dL ABG Lactic Acid (0.5-1.6) mmol/L Hemoglobin (13.0-17.5) gm/dL Chloride (98-107) mmol/L Carbon Dioxide 18 L (22-30) mmol/L BUN 34 H (9-20) mg/dL Creatinine 1.52 H (0.66-1.25) mg/dL Glucose 123 H (74-99) mg/dL POC Glucose (mg/dL) 131 H (70-110) mg/dL Calcium (8.4-10.2) mg/dL Total Protein 5.5 L (6.3-8.2) g/dL Arterial Blood Potassium (3.4-4.5) mmol/L Arterial Blood Glucose (75-99) mg/dL Crossmatch 09/04/23 09/04/23 09/04/23 Range/Units 05:43 06:57 07:55 WBC (3.8-10.6) k/uL RBC (4.30-5.90) m/uL Hgb (13.0-17.5) gm/dL Hct (39.0-53.0) % Plt Count (150-450) k/uL Neutrophils # (1.3-7.7) k/uL Monocytes # (0-1.0) k/uL ABG pH (7.35-7.45) ABG pCO2 (35-45) mmHg ABG pO2 (83-108) mmHg ABG HCO3 (21-25) mmol/L ABG O2 Saturation (94-97) % ABG Hematocrit (34.0-46.0) % ABG Potassium (3.4-4.5) mmol/L ABG Ionized Calcium (4.5-5.3) mg/dL ABG Glucose (75-99) mg/dL ABG Lactic Acid (0.5-1.6) mmol/L Hemoglobin (13.0-17.5) gm/dL Chloride (98-107) mmol/L Carbon Dioxide (22-30) mmol/L BUN (9-20) mg/dL Creatinine (0.66-1.25) mg/dL Glucose (74-99) mg/dL POC Glucose (mg/dL) 134 H 118 H 119 H (70-110) mg/dL Calcium (8.4-10.2) mg/dL Total Protein (6.3-8.2) g/dL Arterial Blood Potassium (3.4-4.5) mmol/L Arterial Blood Glucose (75-99) mg/dL Crossmatch 09/04/23 09/04/23 Range/Units 11:05 12:48 WBC (3.8-10.6) k/uL RBC (4.30-5.90) m/uL Hgb (13.0-17.5) gm/dL Hct (39.0-53.0) % Plt Count (150-450) k/uL Neutrophils # (1.3-7.7) k/uL Monocytes # (0-1.0) k/uL ABG pH (7.35-7.45) ABG pCO2 (35-45) mmHg ABG pO2 (83-108) mmHg ABG HCO3 (21-25) mmol/L ABG O2 Saturation (94-97) % ABG Hematocrit (34.0-46.0) % ABG Potassium (3.4-4.5) mmol/L ABG Ionized Calcium (4.5-5.3) mg/dL ABG Glucose (75-99) mg/dL ABG Lactic Acid (0.5-1.6) mmol/L Hemoglobin (13.0-17.5) gm/dL Chloride (98-107) mmol/L Carbon Dioxide (22-30) mmol/L BUN (9-20) mg/dL Creatinine (0.66-1.25) mg/dL Glucose (74-99) mg/dL POC Glucose (mg/dL) 149 H 153 H (70-110) mg/dL Calcium (8.4-10.2) mg/dL Total Protein (6.3-8.2) g/dL Arterial Blood Potassium (3.4-4.5) mmol/L Arterial Blood Glucose (75-99) mg/dL Crossmatch Microbiology - Last 24 Hours (Table) 09/01/23 10:26 Nasal Screen MRSA/MSSA - Final Nasopharyngeal Swab Assessment and Plan Assessment: Impression: Symptomatic multivessel coronary artery disease, Status post on pump coronary artery bypass grafting x 3. Left internal thoracic artery sequential to diagonal and LAD. Right SVG from aorta to obtuse marginal artery #1. Postoperative day #2 Chronic systolic heart failure with impaired ejection fraction of 30 to 35% Peripheral vascular disease Diabetes mellitus type 2 with an HbA1c of 10.9 Hypertension Hyperlipidemia History of developmental delay Bipolar disorder Chronic anxiety History of smoking quit more than 20 years ago Left apical pneumothorax, expected Commendation: Continue Plavix beta-blockers aspirin and statin Wean oxygen as tolerated Titrate pressors and inotropes as tolerated Continue pain control management Continue monitoring via Gunnison-Isabell catheter for now while the patient is requiring inotropes and pressors Daily x-rays of the chest Daily labs Incentive spirometry Ambulation Will continue to follow Time with Patient: Less than 30
[2023-09-04 15:01] LABS: Glucose,Whole Blood 157 mg/dL (70-110)
[2023-09-04 17:30] LABS: Glucose,Whole Blood 157 mg/dL (70-110)
[2023-09-04 18:48] LABS: Glucose,Whole Blood 134 mg/dL (70-110)
[2023-09-04 20:21] LABS: Glucose,Whole Blood 124 mg/dL (70-110)
[2023-09-04 22:17] LABS: Glucose,Whole Blood 110 mg/dL (70-110)
[2023-09-04 23:56] LABS: Glucose,Whole Blood 132 mg/dL (70-110)
[2023-09-05 02:02] LABS: Glucose,Whole Blood 170 mg/dL (70-110)
[2023-09-05 04:23] LABS: Glucose,Whole Blood 135 mg/dL (70-110)
[2023-09-05 05:17] LABS: Glucose,Whole Blood 117 mg/dL (70-110)
[2023-09-05 05:48] LABS: Basophils # (A) 0.1 k/uL (0-0.2); Basophils % (A) 0 %; Eosinophils # (A) 0.2 k/uL (0-0.7); Eosinophils % (A) 1 %; HCT 28.8 % (39.0-53.0); HGB 9.3 gm/dL (13.0-17.5); Lymphocytes # (A) 1.4 k/uL (1.0-4.8); Lymphocytes % (A) 10 %; MCH 30.7 pg (25.0-35.0); MCHC 32.4 g/dL (31.0-37.0); MCV 94.7 fL (80.0-100.0); Mean Platelet Volume 9.2; Monocytes # (A) 0.9 k/uL (0-1.0); Monocytes % (A) 6 %; Neutrophils # (A) 11.5 k/uL (1.3-7.7); Neutrophils % (A) 80 %; Platelet Count 105 k/uL (150-450); RBC 3.04 m/uL (4.30-5.90); RDW 14.6 % (11.5-15.5); WBC 14.3 k/uL (3.8-10.6)
[2023-09-05 06:31] LABS: ALT 128 U/L (4-49); African American GFR (CKD) 41 (>60 ml/min/1.73 sqM); Albumin 3.5 g/dL (3.5-5.0); Anion Gap 13 mmol/L; Blood Urea Nitrogen 44 mg/dL (9-20); Calcium 8.5 mg/dL (8.4-10.2); Carbon Dioxide 16 mmol/L (22-30); Chloride 108 mmol/L (98-107); Glucose 108 mg/dL (74-99); Non-African American GFR(CKD) 35 (>60 ml/min/1.73 sqM); Sodium 137 mmol/L (137-145); Total Bilirubin 1.3 mg/dL (0.2-1.3); Total Protein 5.7 g/dL (6.3-8.2)
[2023-09-05 06:45] LABS: Glucose,Whole Blood 92 mg/dL (70-110)
[2023-09-05 06:46] LABS: AST 464 U/L (17-59); Alkaline Phosphatase 67 U/L (38-126); Potassium 5.2 mmol/L (3.5-5.1)
[2023-09-05] MEDS: PANTOPRAZOLE 40 MG TABLET PO SCH (06:48)
--- NOTE | 2023-09-05 08:04 | XR ---
EXAMINATION TYPE: XR chest 1V portable DATE OF EXAM: 09/05/2023 COMPARISON: 09/04/1999 HISTORY: Postop TECHNIQUE: Single frontal view of the chest is obtained. FINDINGS: There is an aortic balloon pump marker no longer identified. Post median sternotomy change s and atrial appendage clips noted. There is a mediastinal drain. There is a less than 5% left apical pneumothorax. Tiny bilateral pleural effusion with no overt failu re or sizable consolidation. Heart size stable. Question epicardial lead. Left- sided chest tube sugg ested. Underlying COPD suggested. IMPRESSION: 1. Interval reduction in size of a tiny left apical pneumothorax. 2. Bibasilar consolidation favor atelectasis. 3. Small bilateral pleural effusion could not exclude mild venous congestion.
[2023-09-05 08:08] LABS: Glucose,Whole Blood 123 mg/dL (70-110)
[2023-09-05] MEDS: DEXTROSE/WATER 1 250ML.BAG with DOPamine DRIP 800 MG IV SCH (08:36)
--- NOTE | 2023-09-05 08:38 | P.PN ---
Subjective Progress Note Date: 09/05/23 Principal diagnosis: Triple-vessel coronary artery disease with left main disease. Previous medical history of hypertension, hyperlipidemia, diabetes mellitus, chronic systolic he art failure with reduced ejection fraction/ischemic cardiomyopathy, bipolar disorder, obesity, peripheral vascular disease, developmental delay, previous tobacco dependence, noncompliance POD #4 right heart catheterization, ultrasound guided access, placement of intra-aortic balloon pump from right femoral access performed by Dr. Monreal. POD #3 on pump coronary artery bypass grafting x 3, left internal thoracic artery (in-situ) sequential to diagonal and left anterior descending coronary artery, right greater saphenous vein from aorta to obtuse marginal artery #1, left atrial appendage ligation with #35mm AtriClip, endoscopic bilateral greater saphenous vein harvest, graft flow measurements using the [employer] flow meter system, trans-esophageal echo Postoperative acute blood loss anemia and thrombocytopenia, expected given hemodilution and cardiopulmonary bypass. The patient was seen and examined with Dr. Weller sitting up in recliner this morning. He is in no acute distress. Currently in sinus rhythm, blood pressure stable on low-dose Levophed and vasopressin, Primacor was stopped yesterday. Remains on 2 L nasal cannula with oxygen saturation in the high 90s. Patient was refusing to participate in his care again last night, refused to stand, refused incentive spirometry, his answer for everything that was requested of him was no. It took 5 people to get him up to the chair this morning. Discussed again that he needs to participate in his care in order to recover and get out of the hospital. Right internal jugular Benton/Cordis, mediastinal/right/left pleural chest tubes all remain. Prognosis remains guarded as the patient has history of noncompliance, verbalized multiple times prior to surgery that he does not do anything before 10 AM. Brother was present yesterday, updated, discussed with his brother the need to increase activity and compliance with care. Chest x-ray, labs reviewed. No other new concerns. Objective - Vital Signs Vital signs: Vital Signs Temp 99.0 F 09/05/23 08:00 Pulse 85 09/05/23 08:00 Resp 10 L 09/05/23 08:00 BP 100/56 09/05/23 08:00 Pulse Ox 100 09/05/23 08:00 FiO2 40 09/02/23 20:33 Intake & Output 09/04/23 09/05/23 09/05/23 18:59 06:59 18:59 Intake Total 1946.553 841.426 212.254 Output Total 568 425 51 Balance 1378.553 416.426 161.254 Weight 79.5 kg Intake: IV 887 610 155 Lactated Ringers 1,000 ml 650 500 100 @ 20 mls/hr IV .Q24H [facility] Rx#:[id number] NS cardiac output 120 20 40 pressure bags 117 90 15 Intake, IV Titration 459.553 231.426 57.254 Amount Insulin Regular 100 unit 40.940 40.039 0 In Sodium Chloride 0.9% 100 ml @ Per Protocol IV .Q0M [facility] Rx#:[id number] Norepinephrine 4 mg In 367.613 140.387 57.254 Sodium Chloride 0.9% 250 ml @ 0.02 MCG/KG/MIN 5. 979 mls/hr IV .Q24H [facility] Rx#:[id number] Vasopressin 20 unit In 51 51 Sodium Chloride 0.9% 50 ml @ 0.04 UNITS/MIN 6.12 mls/hr IV .Q8H20M [facility] Rx# :[id number] Oral 600 Output: Chest Tube Drainage 193 205 36 Lt [address] Rt Pleural CT 145 125 20 Mediastinal 48 80 16 Urine 375 220 15 Other: Voiding Method Indwelling Catheter Indwelling Catheter ABP, PAP, CO, CI - Last Documented Arterial Blood Pressure 83/58 Pulmonary Artery Pressure 47/17 Cardiac Output 3.5 Cardiac Index 2 - Exam CONSTITUTIONAL: Appears comfortable, no acute distress RESPIRATORY: Lungs sounds diminished bilaterally. Respirations even, nonlabored. Currently on 2 L nasal cannula with oxygen saturation 98%. Somewhat cooperative with incentive spirometry, only achieving 500 mL. Strong productive cough. CARDIOVASCULAR: S1, S2 present. Regular rate and rhythm, sinus rhythm on telemetry. Sternum stable. Palpable peripheral pulses bilaterally. Generalized edema present. No calf pain or tenderness noted. Heart hugger, antiembolism stockings, SCDs present. GASTROINTESTINAL: Abdomen soft, nontender, nondistended. Active bowel sounds present 4 quadrants. Tolerating minimal clear liquids GENITOURINARY: Hobson present draining clear, yellow urine. Output overnight 15-20 mL per hour, 595 mL in the last 24 hours INTEGUMENTARY: Skin is warm and dry with evidence of good perfusion. Anterior chest incision well approximated and covered with dry intact dressing. Bilateral lower extremity EVH sites well approximated without redness or drainage. NEUROLOGIC: Cranial nerves II through XII intact MUSKULOSKELETAL: Able to move all extremities, strength equal bilaterally, generalized weakness present PSYCHIATRIC: Alert and oriented to person place and time INVASIVE LINES AND TUBES: Mediastinal/left/right pleural chest tubes present and connected to wall suction, no air leaks present. Mediastinal tube with 65 mL serosanguineous drainage overnight, 100 mL in the last 24 hours. Left/right pleural chest tubes with 90 mL serosanguineous drainage overnight, 270 mL in the last 24 hours. A/V epicardial pacemaker wires present, connected to generator, backup rate 50 bpm. Right internal jugular Benton/Cordis, right brachial arterial line present. Last CO/CI 3.2/1.8, PA 45/17, CVP 16 - Allied health notes Allied health notes reviewed: nursing - Labs CBC & Chem 7: 09/05/23 05:35 09/05/23 05:35 Labs: Abnormal Lab Results - Last 24 Hours (Table) 09/04/23 09/04/23 09/04/23 Range/Units 11:05 12:48 14:59 WBC (3.8-10.6) k/uL RBC (4.30-5.90) m/uL Hgb (13.0-17.5) gm/dL Hct (39.0-53.0) % Plt Count (150-450) k/uL Neutrophils # (1.3-7.7) k/uL Potassium (3.5-5.1) mmol/L Chloride (98-107) mmol/L Carbon Dioxide (22-30) mmol/L BUN (9-20) mg/dL Creatinine (0.66-1.25) mg/dL Glucose (74-99) mg/dL POC Glucose (mg/dL) 149 H 153 H 157 H (70-110) mg/dL AST (17-59) U/L ALT (4-49) U/L Total Protein (6.3-8.2) g/dL 09/04/23 09/04/23 09/04/23 Range/Units 17:29 18:47 20:19 WBC (3.8-10.6) k/uL RBC (4.30-5.90) m/uL Hgb (13.0-17.5) gm/dL Hct (39.0-53.0) % Plt Count (150-450) k/uL Neutrophils # (1.3-7.7) k/uL Potassium (3.5-5.1) mmol/L Chloride (98-107) mmol/L Carbon Dioxide (22-30) mmol/L BUN (9-20) mg/dL Creatinine (0.66-1.25) mg/dL Glucose (74-99) mg/dL POC Glucose (mg/dL) 157 H 134 H 124 H (70-110) mg/dL AST (17-59) U/L ALT (4-49) U/L Total Protein (6.3-8.2) g/dL 09/04/23 09/05/23 09/05/23 Range/Units 23:54 02:01 04:22 WBC (3.8-10.6) k/uL RBC (4.30-5.90) m/uL Hgb (13.0-17.5) gm/dL Hct (39.0-53.0) % Plt Count (150-450) k/uL Neutrophils # (1.3-7.7) k/uL Potassium (3.5-5.1) mmol/L Chloride (98-107) mmol/L Carbon Dioxide (22-30) mmol/L BUN (9-20) mg/dL Creatinine (0.66-1.25) mg/dL Glucose (74-99) mg/dL POC Glucose (mg/dL) 132 H 170 H 135 H (70-110) mg/dL AST (17-59) U/L ALT (4-49) U/L Total Protein (6.3-8.2) g/dL 09/05/23 09/05/23 09/05/23 Range/Units 05:16 05:35 05:35 WBC 14.3 H (3.8-10.6) k/uL RBC 3.04 L (4.30-5.90) m/uL Hgb 9.3 L (13.0-17.5) gm/dL Hct 28.8 L (39.0-53.0) % Plt Count 105 L (150-450) k/uL Neutrophils # 11.5 H (1.3-7.7) k/uL Potassium 5.2 H (3.5-5.1) mmol/L Chloride 108 H (98-107) mmol/L Carbon Dioxide 16 L (22-30) mmol/L BUN 44 H (9-20) mg/dL Creatinine 1.99 H (0.66-1.25) mg/dL Glucose 108 H (74-99) mg/dL POC Glucose (mg/dL) 117 H (70-110) mg/dL AST 464 H (17-59) U/L ALT 128 H (4-49) U/L Total Protein 5.7 L (6.3-8.2) g/dL 09/05/23 Range/Units 08:07 WBC (3.8-10.6) k/uL RBC (4.30-5.90) m/uL Hgb (13.0-17.5) gm/dL Hct (39.0-53.0) % Plt Count (150-450) k/uL Neutrophils # (1.3-7.7) k/uL Potassium (3.5-5.1) mmol/L Chloride (98-107) mmol/L Carbon Dioxide (22-30) mmol/L BUN (9-20) mg/dL Creatinine (0.66-1.25) mg/dL Glucose (74-99) mg/dL POC Glucose (mg/dL) 123 H (70-110) mg/dL AST (17-59) U/L ALT (4-49) U/L Total Protein (6.3-8.2) g/dL - Imaging and Cardiology Chest x-ray: report reviewed, image reviewed Assessment and Plan Assessment: Triple-vessel coronary artery disease with left main disease, status post three- vessel on pump CABG History of hypertension, currently hypotensive from vasoplegia, remains on IV vaso and levo Hyperlipidemia, treated, cholesterol 135, LDL 60, triglycerides 178 Diabetes mellitus, preoperative hemoglobin A1c 7.4% Chronic systolic heart failure with reduced ejection fraction/ischemic cardiomyopathy, EF 30-35%, preoperative placement of intra-aortic balloon pump Bipolar disorder Obesity Peripheral vascular disease, right FAIZAN 0.95, left FAIZAN 0.97 Developmental delay Previous tobacco dependence Moderate COPD, preoperative FEV1 55% of predicted Noncompliance Postoperative acute blood loss anemia and thrombocytopenia, expected Incidental finding of tiny left pneumothorax, not a complication, resolved Elevated transaminases, likely from hypoperfusion Plan: Continue aspirin, statin, Plavix and beta-feliberto with hold parameters. Will increase beta-feliberto when able Continue vaso at current rate, wean levo as tolerated. Add renal dose dopamine Wean oxygen as tolerated. Encourage use of incentive spirometry 10 times every hour while awake. Bronchodilators per pulmonology Increase activity, ambulate as tolerated. PT/OT/cardiac rehab following, patient resistant to participate Will monitor daily labs and chest x-rays. Electrolyte replacement per protocol, Kiko ordered Pain control per current medication regimen. Avoid to Toradol due to his ibuprofen allergy. Limit narcotics as much as possible Continue Hobson catheter for another 24 hours, continue to record strict accurate intake and output Will discontinue mediastinal chest tube, split pleural chest tubes, monitor output Insulin management per internal medicine GI/DVT prophylaxis Continue Benton-Isabell catheter with hemodynamic monitoring Daily weights Keep atrial and ventricular epicardial pacemaker wires in place and connected to backup bedside pacemaker generator on a VVI mode of 50 bpm. Patient needs continued encouragement to participate in his care, unfortunately he has a history of refusal, was discussed at length with the patient and his brother that refusal to participate in his care could result in significant complications More recommendations to follow based on patient's clinical course.
[2023-09-05] MEDS: SODIUM CHLORIDE 0.9% 1,000 ML IV SCH (08:45)
[2023-09-05] MEDS: SODIUM ZIRCONIUM CYCLOSILICATE 10 GM PACKET PO ONE (08:46)
--- NOTE | 2023-09-05 09:57 | PN ---
PROGRESS NOTE SUBJECTIVE: Mr. Burgess underwent aortocoronary bypass surgery performed a couple of days ago. He is making somewhat slow progress. His urine output has decreased. He has been started on a renal dose of dopamine at 2.5 mcg. I am suggesting that we should wean off the vasopressin and place him on a small dose of dobutamine up to 5 mcg and leave him on that if his heart rate is good. His urine output has not been good. We need to monitor this closely and I would switch him from Ringer's lactate to 0.9 saline. Potassium is 5.8. The patient's renal function is also creeping up. His oxygenation is good, but I am quite concerned about his worsening renal function. I would rather work with cautious hydration and dobutamine and see how he does. OBJECTIVE: CARDIAC: S1, S2 heard normally. Heart sounds heard distantly. LUNGS: Reveal fair air entry. ABDOMEN: Soft. LOWER EXTREMITIES: Reveal diminished pulses. CENTRAL NERVOUS SYSTEM: Grossly no focal deficits. RECOMMENDATIONS: We would suggest to start him on a dobutamine drip if his heart rate tolerates and wean off the vasopressin. Thank you very much for the consult. We will continue to follow. MMODL / IJN: [id number] /
[2023-09-05 10:04] LABS: Glucose,Whole Blood 150 mg/dL (70-110)
--- NOTE | 2023-09-05 11:50 | P.PN ---
Subjective Progress Note Date: 09/05/23 * 63-year-old gentleman with past medical history significant for coronary artery disease, chronic congestive heart failure with ejection fraction of 30%, hypertension hyperlipidemia diabetes mellitus obesity bipolar disorder cardiomyopathy developmental delay history of nicotine dependence who has been admitted with shortness of breath and lower extremity edema. Patient underwent cardiac catheterization right heart catheterization and intra-aortic balloon pump. * Patient has comorbidities including diabetes mellitus type 2, peripheral arterial disease, bipolar disorder, history of anxiety. * Patient to undergo myocardial revascularization 09/02/2023. * 09/03/23 : Patient admitted to medical ICU. Patient was successfully extubated postprocedure. S/p intra-aortic balloon pump which remains in place through right femoral access. Patient remains on norepinephrine drip, Primacor drip, vasopressin. Bilateral chest tubes remained in place. Followed up by medical ICU and cardiac surgery. Follow-up blood work obtained including WBC 15.2 hemoglobin 9.2 platelet count of 98, serum chemistry sodium 141 potassium 4.7 carbon dioxide 24 BUN 26 creatinine 1.1 blood glucose 118-1 33 * 09/04/23: Patient seen and evaluated in medical ICU room 266, patient continues to remain on Levophed, vasopressin and pressor support. Blood work reviewed WBC 17.7 hemoglobin 9.4 platelet 117. Serum chemistry showed sodium 137 potassium 4.9 carbon dioxide 18 BUN 34 creatinine 1.52 blood glucose 123. Overnight patient was refusing to participate with care, patient counseled by cardiac surgery team as well. Brother at bedside, patient does follow commands, care plan discussed with nursing staff * 09/05/23: Patient seen and evaluated bedside, vitals reviewed blood pressure running in the 90s overnight. Patient remains on 2 L of oxygen. Blood work reviewed CBC shows WBC 14.3 hemoglobin 9.3 platelet 105 serum chemistry sodium 137 potassium 5.2 carbon dioxide 16 BUN 44 creatinine 1.99 total bilirubin 1.3 AST 464 ALT 128 will need to be monitored, p.atient remains lethargic however easily arousable PHYSICAL EXAMINATION: GENERAL: The patient is alert and oriented x3, ill appearance, nasal cannula in place HEENT: Pupils are round and equally reacting to light. EOMI. CARDIOVASCULAR: S1 and S2 present. Chest brace in place PULMONARY: Decreased breath sounds bilaterally, chest tube in place, Hobson catheter in place ABDOMEN: Soft, nontender, nondistended, normoactive bowel sounds. No palpable organomegaly. MUSCULOSKELETAL: No joint swelling or deformity. EXTREMITIES: Lower extremity edema noted. NEUROLOGICAL: Exam limited secondary to lethargy SKIN: No rashes. Assessment and plan * Multivessel coronary artery disease, ischemic cardiomyopathy ejection fraction 30% * s/p CABG 09/02/2023 * Transaminitis secondary to shock liver * Hypertension * Hyperlipidemia * Diabetes mellitus type 2 with HbA1c 7.4 * History of peripheral arterial disease * Bipolar disorder * History of anxiety * Patient is s/p CABG, postprocedure continue patient on aspirin, Plavix, statin, on metoprolol with holding parameters , Postprocedure intra-aortic balloon removed on 09/02 * Postprocedure continue patient on continuous insulin infusion will transition to subcu insulin based on blood glucose levels, blood glucose ranging in 108 - 132 * Post CABG patient remains on Levophed, vasopressin, Primacor, to be weaned off as tolerated * Complex patient continue management and medical ICU Objective - Vital Signs Vital signs: Vital Signs Temp 99.0 F 09/05/23 08:00 Pulse 85 09/05/23 08:00 Resp 10 L 09/05/23 08:00 BP 100/56 09/05/23 08:00 Pulse Ox 100 09/05/23 08:00 FiO2 40 09/02/23 20:33 Intake & Output 09/04/23 09/05/23 09/05/23 18:59 06:59 18:59 Intake Total 1946.553 841.426 212.254 Output Total 568 425 51 Balance 1378.553 416.426 161.254 Weight 79.5 kg Intake: IV 887 610 155 Lactated Ringers 1,000 ml 650 500 100 @ 20 mls/hr IV .Q24H [facility] Rx#:[id number] NS cardiac output 120 20 40 pressure bags 117 90 15 Intake, IV Titration 459.553 231.426 57.254 Amount Insulin Regular 100 unit 40.940 40.039 0 In Sodium Chloride 0.9% 100 ml @ Per Protocol IV .Q0M [facility] Rx#:[id number] Norepinephrine 4 mg In 367.613 140.387 57.254 Sodium Chloride 0.9% 250 ml @ 0.02 MCG/KG/MIN 5. 979 mls/hr IV .Q24H [facility] Rx#:[id number] Vasopressin 20 unit In 51 51 Sodium Chloride 0.9% 50 ml @ 0.04 UNITS/MIN 6.12 mls/hr IV .Q8H20M [facility] Rx# :[id number] Oral 600 Output: Chest Tube Drainage 193 205 36 Lt and Rt Pleural CT 145 125 20 Mediastinal 48 80 16 Urine 375 220 15 Other: Voiding Method Indwelling Catheter Indwelling Catheter ABP, PAP, CO, CI - Last Documented Arterial Blood Pressure 83/58 Pulmonary Artery Pressure 47/17 Cardiac Output 3.5 Cardiac Index 2 - Labs CBC & Chem 7: 09/05/23 05:35 09/05/23 05:35 Labs: Abnormal Lab Results - Last 24 Hours (Table) 09/04/23 09/04/23 09/04/23 Range/Units 11:05 12:48 14:59 WBC (3.8-10.6) k/uL RBC (4.30-5.90) m/uL Hgb (13.0-17.5) gm/dL Hct (39.0-53.0) % Plt Count (150-450) k/uL Neutrophils # (1.3-7.7) k/uL Potassium (3.5-5.1) mmol/L Chloride (98-107) mmol/L Carbon Dioxide (22-30) mmol/L BUN (9-20) mg/dL Creatinine (0.66-1.25) mg/dL Glucose (74-99) mg/dL POC Glucose (mg/dL) 149 H 153 H 157 H (70-110) mg/dL AST (17-59) U/L ALT (4-49) U/L Total Protein (6.3-8.2) g/dL 09/04/23 09/04/23 09/04/23 Range/Units 17:29 18:47 20:19 WBC (3.8-10.6) k/uL RBC (4.30-5.90) m/uL Hgb (13.0-17.5) gm/dL Hct (39.0-53.0) % Plt Count (150-450) k/uL Neutrophils # (1.3-7.7) k/uL Potassium (3.5-5.1) mmol/L Chloride (98-107) mmol/L Carbon Dioxide (22-30) mmol/L BUN (9-20) mg/dL Creatinine (0.66-1.25) mg/dL Glucose (74-99) mg/dL POC Glucose (mg/dL) 157 H 134 H 124 H (70-110) mg/dL AST (17-59) U/L ALT (4-49) U/L Total Protein (6.3-8.2) g/dL 09/04/23 09/05/23 09/05/23 Range/Units 23:54 02:01 04:22 WBC (3.8-10.6) k/uL RBC (4.30-5.90) m/uL Hgb (13.0-17.5) gm/dL Hct (39.0-53.0) % Plt Count (150-450) k/uL Neutrophils # (1.3-7.7) k/uL Potassium (3.5-5.1) mmol/L Chloride (98-107) mmol/L Carbon Dioxide (22-30) mmol/L BUN (9-20) mg/dL Creatinine (0.66-1.25) mg/dL Glucose (74-99) mg/dL POC Glucose (mg/dL) 132 H 170 H 135 H (70-110) mg/dL AST (17-59) U/L ALT (4-49) U/L Total Protein (6.3-8.2) g/dL 09/05/23 09/05/23 09/05/23 Range/Units 05:16 05:35 05:35 WBC 14.3 H (3.8-10.6) k/uL RBC 3.04 L (4.30-5.90) m/uL Hgb 9.3 L (13.0-17.5) gm/dL Hct 28.8 L (39.0-53.0) % Plt Count 105 L (150-450) k/uL Neutrophils # 11.5 H (1.3-7.7) k/uL Potassium 5.2 H (3.5-5.1) mmol/L Chloride 108 H (98-107) mmol/L Carbon Dioxide 16 L (22-30) mmol/L BUN 44 H (9-20) mg/dL Creatinine 1.99 H (0.66-1.25) mg/dL Glucose 108 H (74-99) mg/dL POC Glucose (mg/dL) 117 H (70-110) mg/dL AST 464 H (17-59) U/L ALT 128 H (4-49) U/L Total Protein 5.7 L (6.3-8.2) g/dL 09/05/23 Range/Units 08:07 WBC (3.8-10.6) k/uL RBC (4.30-5.90) m/uL Hgb (13.0-17.5) gm/dL Hct (39.0-53.0) % Plt Count (150-450) k/uL Neutrophils # (1.3-7.7) k/uL Potassium (3.5-5.1) mmol/L Chloride (98-107) mmol/L Carbon Dioxide (22-30) mmol/L BUN (9-20) mg/dL Creatinine (0.66-1.25) mg/dL Glucose (74-99) mg/dL POC Glucose (mg/dL) 123 H (70-110) mg/dL AST (17-59) U/L ALT (4-49) U/L Total Protein (6.3-8.2) g/dL
[2023-09-05 12:26] LABS: Glucose,Whole Blood 142 mg/dL (70-110)
[2023-09-05] MEDS: BUMETANIDE 0.25 MG/ML 4 ML VIAL IVP STA (12:27)
--- NOTE | 2023-09-05 14:21 | P.PN ---
Subjective Progress Note Date: 09/05/23 Principal diagnosis: POD #3 off-pump coronary artery bypass grafting surgery x 3, left internal thoracic artery (in-situ) sequential to diagonal and left anterior descending coronary artery, right greater saphenous vein from aorta to obtuse marginal artery 1 63-year-old male patient, was brought into the intensive care unit after having an antibiotic balloon pump inserted this morning and this was done in preparation for coronary artery bypass surgery. The patient is known to have CAD, chronic CHF with impaired ejection fraction of 30 to 35%. The patient has been hospitalized with [facility] and an earlier cardiac catheterization from April 2023 showed a 70% left main, 70% proximal LAD, 30% circumflex and 70% obtuse marginal 1 and 60% mid RCA. The patient has impaired LV function with an EF around 30 to 35% along with mild to moderate MR, and se berny pulm hypertension. The patient is scheduled to undergo coronary artery bypass surgery tomorrow. He is currently on room air oxygen. Free of any chest pain. Hemodynamically stable. Augmented blood pressure is around 80. He has some developmental delay and his other comorbid conditions include diabetes mellitus type 2, hypertension and hyperlipidemia. Blood work shows a white cell count of 9, hemoglobin 11.8, platelet count of 206, normal coagulation profile, BUN of 27 with a creatinine of 1 and sodium levels at 138. LFTs are normal. His CAT scan of the chest that was done on 07/16/2023 showed cardiomegaly with small right and left-sided pleural effusion. This is consistent with CHF. No mediastinal lymphadenopathy. The patient is seen today September 02, 2023 in follow-up in the intensive care unit following surgery. He had undergone an on pump coronary artery bypass grafting x 3 with a left internal thoracic artery sequential to diagonal and the LAD. Right SVG from the aorta to the obtuse marginal #1. Left atrial appendage ligation and clipping. He remains intubated on the mechanical ventilator and assist-control mode at a rate of 14, tidal volume 500, FiO2 40% and a PEEP of 10. He remains on propofol at 20 mcg/kg/min. Lactated Ringer's at 50 MLS per hour. He is requiring vasopressin at 0.04 units/min. Insulin drip at 1 unit/h. Norepinephrine at 0.05 mcg/kg/min. Milrinone at 0.25 mcg/kg/min intra-aortic balloon pump remains in place. Mediastinal and right and left split chest tubes remain in place. Cardiac output is 4.7. Cardiac index 2.6. Received albumin. Receiving cefazolin. Heparin for DVT prophylaxis. White count 11.7. Hemoglobin 11.5. Platelets 84,000. INR 1.4. Sodium 141. Potassium 3.7. Bicarb 22. BUN 22. Creatinine 0.88. Glucose 101. X-ray no overt failure, pneumothorax or sizable consolidation. ABG's are pending. Patient was today on 09/03/2023, patient was extubated last night uneventfully, patient is now on 2 L nasal cannula, his intra-aortic balloon has been removed today patient remains on pressors and on inotropes. Still requiring norepinephrine at 0.02 mcg/kg/min still on milrinone 0.25 mcg/kg/min and on 0.04 units/min of vasopressin. Cardiac output today is 6.5 cardiac index is 3.7 PA pressure 41/17 CVP of 15. Continues to have mediastinal left and right-sided pleural chest tubes in place, had about 780 mL output since surgery. Chest x- ray is showing mostly postoperative changes labs were all reviewed. WBC count is 15.2 hemoglobin 9.2. Basic metabolic profile is normal, creatinine 1.10 up from 0.88 yesterday Reevaluated today on 09/04/2023, patient remains in the ICU on 3 L nasal cannula, insulin drip at 1.5 units/h still receiving norepinephrine at 0.08 mcg/kg/min milrinone 0.1 mcg/kg/min vasopressin at 0.03 units/min. Cardiac output is 5.0 cardiac index 2.8, patient remains marginal at best, he is sitting at the bedside chair, does not seem to be in distress, on 3 L nasal cannula. Chest x- ray showed no evidence of pulmonary edema no evidence of pneumonia he does have a small tiny apical left pneumothorax. WBC count is 17.7 hemoglobin 9.4. Basic metabolic profile is normal however his BUN is 34 creatinine is 1.52, apparently the patient does have sustained some acute kidney injury most likely related to hypotension/acute tubular necrosis. Patient was reevaluated today on 09/05/2023, remains in the ICU, still requiring multiple drips, he is on dopamine at 2.5 mcg/kg/min norepinephrine at 0.03 mcg/kg/min vasopressin 0.03 units/min patient is also on insulin at 1.5 units/h. Cardiac index remains low at 1.9 cardiac output is relatively low at 3.4. Pulmonary artery pressure 44/18, CVP is 12. Patient does not seem to be very much motivated, he is achieving less than 500 cc on incentive spirometry. The last patient is on 2 L nasal cannula, refusing to participate in physical activity, refusing incentive spirometry, chest tubes, remain in place, prognosis remains guarded. Chest x-ray showed mostly bibasilar atelectasis, mild interstitial prominence, I doubt left-sided pneumothorax as documented by radiology Objective - Vital Signs Vital signs: Vital Signs Temp 98.9 F 09/05/23 12:00 Pulse 85 09/05/23 13:45 Resp 10 L 09/05/23 13:45 BP 89/45 09/05/23 13:45 Pulse Ox 94 L 09/05/23 13:45 FiO2 40 09/02/23 20:33 Intake & Output 09/04/23 09/05/23 09/05/23 18:59 06:59 18:59 Intake Total 1946.553 841.426 665.416 Output Total 568 425 85 Balance 1378.553 416.426 580.416 Weight 79.5 kg Intake: IV 887 610 369 Lactated Ringers 1,000 ml 650 500 260 @ 20 mls/hr IV .Q24H ZADI Rx#:[id number] NS cardiac output 120 20 70 pressure bags 117 90 39 Intake, IV Titration 459.553 231.426 146.416 Amount Insulin Regular 100 unit 40.940 40.039 3.182 In Sodium Chloride 0.9% 100 ml @ Per Protocol IV .Q0M ZAID Rx#:[id number] Norepinephrine 4 mg In 367.613 140.387 92.234 Sodium Chloride 0.9% 250 ml @ 0.02 MCG/KG/MIN 5. 979 mls/hr IV .Q24H ZAID Rx#:[id number] Vasopressin 20 unit In 51 51 51 Sodium Chloride 0.9% 50 ml @ 0.04 UNITS/MIN 6.12 mls/hr IV .Q8H20M ZAID Rx# :[id number] Oral 600 150 Output: Chest Tube Drainage 193 205 50 Left 10 Lt and Rt Pleural CT 145 125 20 Mediastinal 48 80 20 Right 0 Urine 375 220 35 Other: Voiding Method Indwelling Catheter Indwelling Catheter Indwelling Catheter ABP, PAP, CO, CI - Last Documented Arterial Blood Pressure 83/58 Pulmonary Artery Pressure 37/15 Cardiac Output 3.6 Cardiac Index 2 - Exam GENERAL EXAM: Reveals 63-year-old white male extubated in no distress on 2 L nasal cannula HEAD: Normocephalic. EYES: PERRLA, EOMI. NOSE: Clear with pink turbinates. THROAT: No erythema or exudates. NECK: No masses, no JVD. Left IJ Rosman-Isabell catheter in place. CHEST: Sternal dressing dry and intact. Heart hugger in place. LUNGS: Diminished breath sound bilaterally no rhonchi no wheezes CVS: S1 and S2 normal with no audible murmur, regular rhythm. ABDOMEN: No hepatosplenomegaly, diminished bowel sounds, no guarding or rigidity. SKIN: No rashes CENTRAL NERVOUS SYSTEM: Alert and oriented x 3 no gross focal deficits EXTREMITIES: no clubbing edema or cyanosis - Labs CBC & Chem 7: 09/05/23 05:35 09/05/23 05:35 Labs: Abnormal Lab Results - Last 24 Hours (Table) 09/04/23 09/04/23 09/04/23 Range/Units 14:59 17:29 18:47 WBC (3.8-10.6) k/uL RBC (4.30-5.90) m/uL Hgb (13.0-17.5) gm/dL Hct (39.0-53.0) % Plt Count (150-450) k/uL Neutrophils # (1.3-7.7) k/uL Potassium (3.5-5.1) mmol/L Chloride (98-107) mmol/L Carbon Dioxide (22-30) mmol/L BUN (9-20) mg/dL Creatinine (0.66-1.25) mg/dL Glucose (74-99) mg/dL POC Glucose (mg/dL) 157 H 157 H 134 H (70-110) mg/dL AST (17-59) U/L ALT (4-49) U/L Total Protein (6.3-8.2) g/dL 09/04/23 09/04/23 09/05/23 Range/Units 20:19 23:54 02:01 WBC (3.8-10.6) k/uL RBC (4.30-5.90) m/uL Hgb (13.0-17.5) gm/dL Hct (39.0-53.0) % Plt Count (150-450) k/uL Neutrophils # (1.3-7.7) k/uL Potassium (3.5-5.1) mmol/L Chloride (98-107) mmol/L Carbon Dioxide (22-30) mmol/L BUN (9-20) mg/dL Creatinine (0.66-1.25) mg/dL Glucose (74-99) mg/dL POC Glucose (mg/dL) 124 H 132 H 170 H (70-110) mg/dL AST (17-59) U/L ALT (4-49) U/L Total Protein (6.3-8.2) g/dL 09/05/23 09/05/23 09/05/23 Range/Units 04:22 05:16 05:35 WBC 14.3 H (3.8-10.6) k/uL RBC 3.04 L (4.30-5.90) m/uL Hgb 9.3 L (13.0-17.5) gm/dL Hct 28.8 L (39.0-53.0) % Plt Count 105 L (150-450) k/uL Neutrophils # 11.5 H (1.3-7.7) k/uL Potassium (3.5-5.1) mmol/L Chloride (98-107) mmol/L Carbon Dioxide (22-30) mmol/L BUN (9-20) mg/dL Creatinine (0.66-1.25) mg/dL Glucose (74-99) mg/dL POC Glucose (mg/dL) 135 H 117 H (70-110) mg/dL AST (17-59) U/L ALT (4-49) U/L Total Protein (6.3-8.2) g/dL 09/05/23 09/05/23 09/05/23 Range/Units 05:35 08:07 10:03 WBC (3.8-10.6) k/uL RBC (4.30-5.90) m/uL Hgb (13.0-17.5) gm/dL Hct (39.0-53.0) % Plt Count (150-450) k/uL Neutrophils # (1.3-7.7) k/uL Potassium 5.2 H (3.5-5.1) mmol/L Chloride 108 H (98-107) mmol/L Carbon Dioxide 16 L (22-30) mmol/L BUN 44 H (9-20) mg/dL Creatinine 1.99 H (0.66-1.25) mg/dL Glucose 108 H (74-99) mg/dL POC Glucose (mg/dL) 123 H 150 H (70-110) mg/dL AST 464 H (17-59) U/L ALT 128 H (4-49) U/L Total Protein 5.7 L (6.3-8.2) g/dL 09/04/ Range/Units 12:24 WBC (3.8-10.6) k/uL RBC (4.30-5.90) m/uL Hgb (13.0-17.5) gm/dL Hct (39.0-53.0) % Plt Count (150-450) k/uL Neutrophils # (1.3-7.7) k/uL Potassium (3.5-5.1) mmol/L Chloride (98-107) mmol/L Carbon Dioxide (22-30) mmol/L BUN (9-20) mg/dL Creatinine (0.66-1.25) mg/dL Glucose (74-99) mg/dL POC Glucose (mg/dL) 142 H (70-110) mg/dL AST (17-59) U/L ALT (4-49) U/L Total Protein (6.3-8.2) g/dL Assessment and Plan Assessment: Impression: Symptomatic multivessel coronary artery disease, Status post on pump coronary artery bypass grafting x 3. Left internal thoracic artery sequential to diagonal and LAD. Right SVG from aorta to obtuse marginal artery #1. Postoperative day #3 Chronic systolic heart failure with impaired ejection fraction of 30 to 35% Peripheral vascular disease Diabetes mellitus type 2 with an HbA1c of 10.9 Hypertension Hyperlipidemia History of developmental delay Bipolar disorder Chronic anxiety History of smoking quit more than 20 years ago Left apical pneumothorax, expected Commendation: Continue pressors and inotropes as his cardiac index seems to be marginal Continue dopamine, and monitor renal profile while on dopamine and renal output. Continue Plavix beta-blockers aspirin and statin Titrate pressors and inotropes as tolerated Continue pain control management Continue monitoring via Rosman-Isabell catheter for now while the patient is requiri ng inotropes and pressors Daily x-rays of the chest Daily labs Incentive spirometry Ambulation Patient needs significant amount of motivation as he does not seem to be motivated at all. Prognosis is guarded Will continue to follow Time with Patient: Less than 30
[2023-09-05 14:49] LABS: Glucose,Whole Blood 184 mg/dL (70-110)
[2023-09-05 16:12] LABS: Glucose,Whole Blood 167 mg/dL (70-110)
[2023-09-05] MEDS: ALBUMIN HUMAN 25% 50 ML in EMPTY BAG 1 BAG IVPB ONE (17:18)
[2023-09-05 17:32] LABS: Glucose,Whole Blood 151 mg/dL (70-110)
[2023-09-05 19:01] LABS: Glucose,Whole Blood 156 mg/dL (70-110)
[2023-09-05] MEDS: MILRINONE-D5W PMX 20 MG in DEXTROSE/WATER 1 100ML.BAG IV SCH (21:07)
[2023-09-05 22:41] LABS: Glucose,Whole Blood 123 mg/dL (70-110)
[2023-09-05 23:10] LABS: Glucose,Whole Blood 138 mg/dL (70-110)
[2023-09-06 00:31] LABS: Glucose,Whole Blood 136 mg/dL (70-110)
[2023-09-06 01:59] LABS: Glucose,Whole Blood 133 mg/dL (70-110)
[2023-09-06 04:45] LABS: Glucose,Whole Blood 140 mg/dL (70-110)
[2023-09-06 04:59] LABS: HCT 26.8 % (39.0-53.0); HGB 8.7 gm/dL (13.0-17.5); MCHC 32.6 g/dL (31.0-37.0); MCV 95.1 fL (80.0-100.0); Mean Platelet Volume 8.8; Platelet Count 109 k/uL (150-450); RBC 2.81 m/uL (4.30-5.90); RDW 14.5 % (11.5-15.5)
[2023-09-06 05:11] LABS: ALT 291 U/L (4-49); African American GFR (CKD) 26 (>60 ml/min/1.73 sqM); Albumin 3.3 g/dL (3.5-5.0); Alkaline Phosphatase 88 U/L (38-126); Anion Gap 12 mmol/L; Blood Urea Nitrogen 54 mg/dL (9-20); Calcium 8.1 mg/dL (8.4-10.2); Carbon Dioxide 17 mmol/L (22-30); Chloride 107 mmol/L (98-107); Glucose 132 mg/dL (74-99); Non-African American GFR(CKD) 22 (>60 ml/min/1.73 sqM); Potassium 4.8 mmol/L (3.5-5.1); Sodium 136 mmol/L (137-145); Total Bilirubin 1.1 mg/dL (0.2-1.3); Total Protein 5.4 g/dL (6.3-8.2)
[2023-09-06 06:13] LABS: AST 1064 U/L (17-59)
[2023-09-06 06:27] LABS: Glucose,Whole Blood 152 mg/dL (70-110)
--- NOTE | 2023-09-06 08:05 | XR ---
EXAMINATION TYPE: XR chest 1V portable DATE OF EXAM: 09/06/2023 COMPARISON: 09/05/2023 HISTORY: Postop TECHNIQUE: Single frontal view of the chest is obtained. FINDINGS: There is an aortic balloon pump marker no longer identified. Post median sternotomy change s and atrial appendage clips noted. No sizable pneumothorax on today's exam. Tiny bilateral pleural effusion with no overt failure or siz able consolidation. Heart size stable. Question epicardial lead. Left- sided chest tube suggested. Un derlying COPD suggested. IMPRESSION: 1. No sizable pneumothorax on today's exam. Postoperative changes with bilateral infiltrate and small effusion correlate for mild venous congesti on.
--- NOTE | 2023-09-06 08:37 | P.PN ---
Subjective Progress Note Date: 09/06/23 Principal diagnosis: Triple-vessel coronary artery disease with left main disease. Previous medical history of hypertension, hyperlipidemia, diabetes mellitus, chronic systolic he art failure with reduced ejection fraction/ischemic cardiomyopathy, bipolar disorder, obesity, peripheral vascular disease, developmental delay, previous tobacco dependence, noncompliance POD #5 right heart catheterization, ultrasound guided access, placement of intra-aortic balloon pump from right femoral access performed by Dr. Monreal. POD #4 on pump coronary artery bypass grafting x 3, left internal thoracic artery (in-situ) sequential to diagonal and left anterior descending coronary artery, right greater saphenous vein from aorta to obtuse marginal artery #1, left atrial appendage ligation with #35mm AtriClip, endoscopic bilateral greater saphenous vein harvest, graft flow measurements using the [employer] flow meter system, trans-esophageal echo Postoperative acute blood loss anemia and thrombocytopenia, expected given hemodilution and cardiopulmonary bypass LEONARDO, elevated transaminases, likely due to hypoperfusion The patient was seen and examined with Dr. Chávez sitting up in recliner this morning. He is in no acute distress. Currently in sinus rhythm, blood pressure marginal on low-dose Levophed, vasopressin, dopamine. Primacor was re-added yesterday due to low cardiac output. Remains on 1 L nasal cannula with oxygen saturation in the high 90s. Patient continues to refuse to participate in his care, very minimal effort. Discussed at length again with brother yesterday the need to increase activity and compliance with care and potential consequences if patient continues to refuse to do so, brother verbalized understanding. Right internal jugular Auburn/Cordis, right/left pleural chest tubes all remain. Prognosis remains guarded as the patient has history of noncompliance, verbalized multiple times prior to surgery that he does not do anything before 10 AM. Chest x-ray, labs reviewed. Kidney and liver function have worsened. Will try dobutamine at Dr. Chang's request, stop dopamine. Will consult nephrology. Will obtain echo. Objective - Vital Signs Vital signs: Vital Signs Temp 99.3 F 09/06/23 00:00 Pulse 87 09/06/23 07:00 Resp 13 09/06/23 07:00 BP 93/56 09/06/23 07:00 Pulse Ox 97 09/06/23 07:00 FiO2 40 03/25/24 20:33 Intake & Output 09/05/23 09/06/23 09/06/23 18:59 06:59 18:59 Intake Total 1759.844 516.369 36 Output Total 290 214 15 Balance 1469.844 302.369 21 Intake: IV 715 462 36 Albumin Human 25% 50 ml 50 In Empty Bag 1 bag @ 50 mls/hr IVPB ONCE ONE Rx#: [id number] Lactated Ringers 1,000 ml 450 30 @ 20 mls/hr IV .Q24H ZAID Rx#:[id number] NS cardiac output 140 360 30 pressure bags 75 72 6 Intake, IV Titration 164.844 54.369 Amount Insulin Regular 100 unit 21.610 4.797 In Sodium Chloride 0.9% 100 ml @ Per Protocol IV .Q0M ZAID Rx#:[id number] Norepinephrine 4 mg In 92.234 Sodium Chloride 0.9% 250 ml @ 0.02 MCG/KG/MIN 5. 979 mls/hr IV .Q24H ZAID Rx#:[id number] Vasopressin 20 unit In 51 49.572 Sodium Chloride 0.9% 50 ml @ 0.04 UNITS/MIN 6.12 mls/hr IV .Q8H20M ZAID Rx# :[id number] Oral 880 Output: Chest Tube Drainage 160 79 0 Left 80 47 0 Lt and Rt Pleural CT 20 Mediastinal 20 Right 40 32 0 Urine 130 135 15 Other: Voiding Method Indwelling Catheter Indwelling Catheter ABP, PAP, CO, CI - Last Documented Arterial Blood Pressure 83/58 Pulmonary Artery Pressure 43/12 Cardiac Output 5.1 Cardiac Index 2.9 - Exam CONSTITUTIONAL: Appears comfortable, no acute distress RESPIRATORY: Lungs sounds diminished bilaterally. Respirations even, nonlabored. Currently on 1 L nasal cannula with oxygen saturation 96%. So mewhat cooperative with incentive spirometry, barely achieving 500 mL. Strong productive cough. CARDIOVASCULAR: S1, S2 present. Regular rate and rhythm, sinus rhythm on telemetry. Sternum stable. Palpable peripheral pulses bilaterally. Generalized edema present. No calf pain or tenderness noted. Heart hugger, antiembolism stockings, SCDs present. GASTROINTESTINAL: Abdomen soft, nontender, nondistended. Active bowel sounds present 4 quadrants. Tolerating minimal liquids GENITOURINARY: Hobson present draining clear, yellow urine. Output overnight 0- 45 mL per hour, 265 mL in the last 24 hours INTEGUMENTARY: Skin is warm and dry. Anterior chest incision well approximated and covered with dry intact dressing. Bilateral lower extremity EVH sites well approximated without redness or drainage. NEUROLOGIC: Cranial nerves II through XII intact MUSKULOSKELETAL: Able to move all extremities, strength equal bilaterally, generalized weakness present PSYCHIATRIC: Alert and oriented to person place and time INVASIVE LINES AND TUBES: Left/right pleural chest tubes present and connected to wall suction, no air leaks present. Right pleural tube with 32 mL serosanguineous drainage overnight, 50 mL in the last 24 hours. Left pleural chest tube with 31 mL serosanguineous drainage overnight, 150 mL in the last 24 hours. A/V epicardial pacemaker wires present, connected to generator, backup rate 50 bpm. Right internal jugular Auburn/Cordis, right brachial arterial line present. Last CO/CI 5.1/2.9, PA 39/14, CVP 8 - Allied health notes Allied health notes reviewed: nursing - Labs CBC & Chem 7: 09/06/23 04:20 09/06/23 04:20 Labs: Abnormal Lab Results - Last 24 Hours (Table) 09/05/23 09/05/23 09/05/23 Range/Units 08:07 10:03 12:24 WBC (3.8-10.6) k/uL RBC (4.30-5.90) m/uL Hgb (13.0-17.5) gm/dL Hct (39.0-53.0) % Plt Count (150-450) k/uL Sodium (137-145) mmol/L Carbon Dioxide (22-30) mmol/L BUN (9-20) mg/dL Creatinine (0.66-1.25) mg/dL Glucose (74-99) mg/dL POC Glucose (mg/dL) 123 H 150 H 142 H (70-110) mg/dL Calcium (8.4-10.2) mg/dL AST (17-59) U/L ALT (4-49) U/L Total Protein (6.3-8.2) g/dL Albumin (3.5-5.0) g/dL 09/05/23 09/05/23 09/05/23 Range/Units 14:47 16:11 17:30 WBC (3.8-10.6) k/uL RBC (4.30-5.90) m/uL Hgb (13.0-17.5) gm/dL Hct (39.0-53.0) % Plt Count (150-450) k/uL Sodium (137-145) mmol/L Carbon Dioxide (22-30) mmol/L BUN (9-20) mg/dL Creatinine (0.66-1.25) mg/dL Glucose (74-99) mg/dL POC Glucose (mg/dL) 184 H 167 H 151 H (70-110) mg/dL Calcium (8.4-10.2) mg/dL AST (17-59) U/L ALT (4-49) U/L Total Protein (6.3-8.2) g/dL Albumin (3.5-5.0) g/dL 09/05/23 09/05/23 09/05/23 Range/Units 19:00 22:39 23:08 WBC (3.8-10.6) k/uL RBC (4.30-5.90) m/uL Hgb (13.0-17.5) gm/dL Hct (39.0-53.0) % Plt Count (150-450) k/uL Sodium (137-145) mmol/L Carbon Dioxide (22-30) mmol/L BUN (9-20) mg/dL Creatinine (0.66-1.25) mg/dL Glucose (74-99) mg/dL POC Glucose (mg/dL) 156 H 123 H 138 H (70-110) mg/dL Calcium (8.4-10.2) mg/dL AST (17-59) U/L ALT (4-49) U/L Total Protein (6.3-8.2) g/dL Albumin (3.5-5.0) g/dL 09/06/23 09/06/23 09/06/23 Range/Units 00:31 01:58 04:20 WBC 14.0 H (3.8-10.6) k/uL RBC 2.81 L (4.30-5.90) m/uL Hgb 8.7 L (13.0-17.5) gm/dL Hct 26.8 L (39.0-53.0) % Plt Count 109 L (150-450) k/uL Sodium (137-145) mmol/L Carbon Dioxide (22-30) mmol/L BUN (9-20) mg/dL Creatinine (0.66-1.25) mg/dL Glucose (74-99) mg/dL POC Glucose (mg/dL) 136 H 133 H (70-110) mg/dL Calcium (8.4-10.2) mg/dL AST (17-59) U/L ALT (4-49) U/L Total Protein (6.3-8.2) g/dL Albumin (3.5-5.0) g/dL 09/06/23 09/06/23 09/06/23 Range/Units 04:20 04:43 06:26 WBC (3.8-10.6) k/uL RBC (4.30-5.90) m/uL Hgb (13.0-17.5) gm/dL Hct (39.0-53.0) % Plt Count (150-450) k/uL Sodium 136 L (137-145) mmol/L Carbon Dioxide 17 L (22-30) mmol/L BUN 54 H (9-20) mg/dL Creatinine 2.91 H (0.66-1.25) mg/dL Glucose 132 H (74-99) mg/dL POC Glucose (mg/dL) 140 H 152 H (70-110) mg/dL Calcium 8.1 L (8.4-10.2) mg/dL AST 1064 H (17-59) U/L ALT 291 H (4-49) U/L Total Protein 5.4 L (6.3-8.2) g/dL Albumin 3.3 L (3.5-5.0) g/dL - Imaging and Cardiology Chest x-ray: image reviewed Assessment and Plan Assessment: Triple-vessel coronary artery disease with left main disease, status post three- vessel on pump CABG History of hypertension, currently hypotensive from vasoplegia, remains on IV vaso and levo Hyperlipidemia, treated, cholesterol 135, LDL 60, triglycerides 178 Diabetes mellitus, preoperative hemoglobin A1c 7.4% Chronic systolic heart failure with reduced ejection fraction/ischemic cardiomyopathy, EF 30-35%, preoperative placement of intra-aortic balloon pump Bipolar disorder Obesity Peripheral vascular disease, right FAIZAN 0.95, left FAIZAN 0.97 Developmental delay Previous tobacco dependence Moderate COPD, preoperative FEV1 55% of predicted Noncompliance Postoperative acute blood loss anemia and thrombocytopenia, expected Incidental finding of tiny left pneumothorax, not a complication, resolved LEONARDO, elevated transaminases, likely from hypoperfusion Plan: Continue aspirin, Plavix and beta-feliberto with hold parameters. Statin discontinued due to elevated transaminases Continue vaso at current rate, wean levo as tolerated. Dopamine discontinued, will start dobutamine. Once dobutamine started will stop primacor. Will give 250 ml albumin x 1 Will obtain echo to eval LV function Wean oxygen as tolerated. Encourage use of incentive spirometry 10 times every hour while awake. Bronchodilators per pulmonology Increase activity, ambulate as tolerated. PT/OT/cardiac rehab following, patient resistant to participate Will monitor daily labs and chest x-rays. Electrolyte replacement per protocol Pain control per current medication regimen. Avoid to Toradol due to his ibuprofen allergy. Limit narcotics as much as possible Continue Hobson catheter for another 24 hours, continue to record strict accurate intake and output Will continue pleural chest tubes, monitor output Insulin management per internal medicine GI/DVT prophylaxis Continue Auburn-Isabell catheter with hemodynamic monitoring Daily weights Keep atrial and ventricular epicardial pacemaker wires in place and connected to backup bedside pacemaker generator on a VVI mode of 50 bpm. Patient needs continued encouragement to participate in his care, unfortunately he has a history of refusal, was discussed at length with the patient and his brother that refusal to participate in his care could result in significant complications More recommendations to follow based on patient's clinical course.
--- NOTE | 2023-09-06 08:38 | PN ---
PROGRESS NOTE SUBJECTIVE: Mr. Burgess has worsening urine output and increasing creatinine. Yesterday, I had requested dobutamine to be started; however, this was not done and the patient seems to be worsening overall. He is back on Milrinone, vasopressin, and Levophed combination. I spoke to Dr. Weller. I am requesting a trial of dopamine and dobutamine combination to see it will improve his urine output somewhat. He remains in sinus rhythm. OBJECTIVE: CARDIOVASCULAR: S1, S2 heard normally. Short systolic murmur heard in the left sternal border. LUNGS: Revealed diminished air entry. ABDOMEN: Exam was not performed. CENTRAL NERVOUS SYSTEM: Grossly no focal deficits. His creatinine has gone up from 1.99 to 2.9 today. I am recommending a trial of dobutamine along with renal dopamine and see how he does. Prognosis remains guarded. I discussed my thoughts with Dr. Weller. MMALEXISL / TEN: [id number] /
[2023-09-06] MEDS: DOBUTamine DRIP 500 MG in DEXTROSE/WATER 1 250ML.BAG IV SCH (08:51)
[2023-09-06] MEDS: ALBUMIN HUMAN 5% 250 ML in EMPTY BAG 1 BAG IVPB ONE (09:00)
[2023-09-06 09:10] LABS: Glucose,Whole Blood 150 mg/dL (70-110)
[2023-09-06] MEDS: DEXTROSE/WATER 1 250ML.BAG with DOPamine DRIP 800 MG IV SCH (09:16)
--- NOTE | 2023-09-06 09:18 | CA ---
Transthoracic Echo Report Name: Wes Burgess Age: 63 Gender: M : 1960 Exam Date: 09/06/2023 07:56 Exam Location: [facility] Ht (in): 61 Wt (lb): 175 Ordering Physician: Everett Weller MD Attending/Referring Phys: Education And Training Manager Caty Rosas RDCS Procedure CPT: Indications: evaluate LV function Cardiac Hx: Technical Quality: Technically difficult study Contrast 1: Definity Total Dose (mL): 2 Contrast 2: Total Dose (mL): MEASUREMENTS (Male / Female) Normal Values 2D ECHO LV Diastolic Diameter PLAX 3.7 cm 4.2 - 5.9 / 3.9 - 5.3 cm LV Systolic Diameter PLAX 3.4 cm IVS Diastolic Thickness 0.9 cm 0.6 - 1.0 / 0.6 - 0.9 cm LVPW Diastolic Thickness 1.0 cm 0.6 - 1.0 / 0.6 - 0.9 cm LV Relative Wall Thickness 0.5 LV Diastolic Volume MOD BP 120.0 cm??? 67 - 155 / 56 - 104 cm??? LV Systolic Volume MOD BP 85.8 cm??? 22 - 58 / 19 - 49 cm??? LV Ejection Fraction MOD BP 28.6 % >= 55 % LV Cardiac Index MOD BP 1511.3 cm???/min???m??? LV Diastolic Volume MOD 4C 130.8 cm??? LV Systolic Volume MOD 4C 91.3 cm??? LV Ejection Fraction MOD 4C 30.2 % LV Cardiac Index MOD 4C 1741.2 cm???/min???m??? LV Diastolic Length 4C 8.6 cm LV Systolic Length 4C 7.4 cm LV Diastolic Volume MOD 2C 105.2 cm??? LV Systolic Volume MOD 2C 78.4 cm??? LV Ejection Fraction MOD 2C 25.5 % LV Cardiac Index MOD 2C 1182.2 cm???/min???m??? LV Diastolic Length 2C 8.2 cm LV Systolic Length 2C 7.7 cm DOPPLER TR Peak Velocity 263.3 cm/s TR Peak Gradient 27.7 mmHg Right Ventricular Systolic Press 32.7 mmHg FINDINGS Left Ventricle Severely increased left ventricular systolic volume. Severely decreased left ventricular ejection fraction. Abnormal (paradoxical) septal motion consistent with postoperative state. Left ventricular ejection fraction is estimated at 20-25 %. Right Ventricle Normal right ventricular size and function. Right Atrium Normal right atrial size. Left Atrium Mitral Valve [id number] mitral regurgitation. Aortic Valve No aortic valve stenosis or regurgitation. Tricuspid Valve Mild tricuspid regurgitation. Pulmonic Valve Pericardium No pericardial effusion. Aorta CONCLUSIONS Limited study Left ventricular ejection fraction is estimated at 20-25 %. No evidence of LV thrombus on contrast imaging Severely increased left ventricular systolic volume. Severely decreased left ventricular ejection fraction. Akinetic [place] Abnormal (paradoxical) septal motion consistent with postoperative state. Findings similar to eco from 07/2023 Previewed by: Dr Aravind Vega (Electronically Signed) Final Date: 06 September 2023 09:18
[2023-09-06] MEDS: ACETAMINOPHEN TAB 325 MG TAB PO PRN (09:44)
[2023-09-06 10:13] LABS: Glucose,Whole Blood 138 mg/dL (70-110)
--- NOTE | 2023-09-06 11:41 | P.NPCON ---
History of Present Illness - Reason for Consult acute renal failure - History of Present Illness Reason for consultation: Acute kidney injury History of present illness: Patient is a 63-year-old male seen in renal consultation for acute kidney injury. Patient's baseline creatinine is near 1 and has been gradually worsening the last few days. It is up to 2.91 today. Patient underwent cardiac catheterization September 01, 2023 with successful placement of intra-aortic balloon pump. Patient underwent CABG x 3 on September 02, 2023. Subsequently patient became hypotensive and was started on Levophed and vasopressin. He was also on Primacor which was subsequently changed to dobutamine this morning. He is also on low-dose dopamine. Patient is noted to have cardiomyopathy with reduced ejection fraction. Patient received Bumex yesterday and Lasix the day before. This morning he received albumin. Patient has history of prior coronary artery disease with stents. Oral intake is poor. He is on a full liquid diet. Urine output has been 15 to 20 cc an hour. Patient has been quite hypotensive and current blood pressure is in the systolic 90s and diastolic 50s. Patient is currently sitting up in chair. He is quite lethargic and not answering verbal questions. I do not see any NSAIDs on his home medication list. Vital signs are stable on vasopressor support. General: Sitting up in chair. HEENT: Head exam is unremarkable. On nasal cannula. LUNGS: No audible rhonchi or wheezes. Chest tubes noted. HEART: Rate and Rhythm are regular. ABDOMEN: No distention. EXTREMITITES: Trace edema. Past Medical History Past Medical History: Coronary Artery Disease (CAD), Heart Failure, Diabetes Mellitus, Hyperlipidemia, Hypertension Additional Past Medical History / Comment(s): chronic systolic heart failure,cardiomyapathy,rush cataracts History of Any Multi-Drug Resistant Organisms: None Reported Past Surgical History: Heart Catheterization Additional Past Surgical History / Comment(s): Previous foot and wrist surgery Past Anesthesia/Blood Transfusion Reactions: No Reported Reaction Additional Past Anesthesia/Blood Transfusion Reaction / Comment(s): no known hx blood transfusion Smoking Status: Former smoker - Past Family History Mother Family Medical History: COPD, Pneumonia Brother(s) Family Medical History: COPD Medications and Allergies Home Medications Medication Instructions Recorded Confirmed Type DULoxetine HCL [Cymbalta] 60 mg PO DAILY 08/28/23 08/28/23 History Empagliflozin [Jardiance] 10 mg PO DAILY 08/28/23 08/28/23 History Furosemide [Lasix] 40 mg PO BID 08/28/23 08/28/23 History Glimepiride [Amaryl] 2 mg PO DAILY 08/28/23 08/28/23 History Losartan [Cozaar] 25 mg PO DAILY 08/28/23 08/28/23 History Metoprolol Succinate (ER) [Toprol 50 mg PO DAILY 08/28/23 08/28/23 History Xl] Rosuvastatin Calcium [Crestor] 40 mg PO DAILY 08/28/23 08/28/23 History Spironolactone [Aldactone] 12.5 mg PO DAILY 08/28/23 08/28/23 History busPIRone HCL 15 mg PO BID 08/28/23 08/28/23 History Allergies Allergy/AdvReac Type Severity Reaction Status Date / Time ibuprofen Allergy Unknown Verified 08/28/23 10:06 Physical Exam Vitals: Vital Signs Temp Pulse Resp BP Pulse Ox 09/06/23 09:42 94 16 09/06/23 09:35 94 18 95 09/06/23 07:00 87 13 93/56 97 09/06/23 06:45 89 16 98/56 96 09/06/23 06:30 90 19 105/53 96 09/06/23 06:15 12 106/54 96 09/06/23 06:00 92 11 L 113/53 96 09/06/23 05:45 92 18 104/54 95 09/06/23 05:30 92 18 110/55 96 09/06/23 05:15 91 18 101/52 95 09/06/23 05:00 92 17 106/50 96 09/06/23 04:45 91 14 112/49 95 09/06/23 04:30 91 13 107/55 96 09/06/23 04:15 92 11 L 100/56 96 09/06/23 04:00 92 13 107/55 94 L 09/06/23 03:45 92 19 107/59 94 L 09/06/23 03:30 92 12 111/56 94 L 09/06/23 03:15 92 15 97/53 94 L 09/06/23 03:00 92 14 98/52 94 L 09/06/23 02:45 88 15 112/56 94 L 09/06/23 02:30 92 15 111/51 94 L 09/06/23 02:15 91 13 105/49 94 L 09/06/23 02:00 91 12 108/51 94 L 09/06/23 01:45 90 15 111/54 94 L 09/06/23 01:30 91 15 109/55 95 09/06/23 01:15 90 16 111/51 95 09/06/23 01:00 89 15 111/45 96 09/06/23 00:45 89 14 109/52 96 09/06/23 00:30 90 12 117/53 98 09/06/23 00:15 90 13 106/54 97 09/06/23 00:00 99.3 F 89 12 111/52 97 09/05/23 23:45 89 24 104/53 97 09/05/23 23:39 87 15 104/53 96 09/05/23 23:30 87 14 111/52 97 09/05/23 23:15 87 14 97/60 97 09/05/23 23:00 87 14 111/49 97 09/05/23 22:45 87 14 111/56 99 09/05/23 22:30 86 14 113/54 97 09/05/23 22:15 86 14 107/57 98 09/05/23 22:00 85 14 100/59 98 09/05/23 21:45 83 14 98/62 99 09/05/23 21:30 82 13 103/52 98 09/05/23 21:15 82 23 100/58 99 09/05/23 21:00 82 12 93/59 100 09/05/23 20:45 82 14 101/54 93 L 09/05/23 20:30 81 16 87/59 92 L 09/05/23 20:15 82 13 93/53 92 L 09/05/23 20:00 99.3 F 82 16 101/55 93 L 09/05/23 19:45 82 16 89/61 93 L 09/05/23 19:30 82 11 L 93/53 92 L 09/05/23 19:15 82 12 102/51 92 L 09/05/23 19:00 81 16 97/48 92 L 09/05/23 18:45 82 10 L 94/53 94 L 09/05/23 18:30 81 16 91/60 91 L 09/05/23 18:15 81 15 94/49 92 L 09/05/23 18:00 80 10 L 94/55 94 L 09/05/23 17:45 80 16 95/49 93 L 09/05/23 17:30 81 15 87/57 95 09/05/23 17:15 81 15 94/60 94 L 09/05/23 17:00 81 16 91/53 95 09/05/23 16:45 80 13 86/47 93 L 09/05/23 16:30 77 11 L 85/52 94 L 09/05/23 16:27 76 09/05/23 16:15 76 11 L 81/48 99 09/05/23 16:06 74 09/05/23 16:00 99.1 F 75 8 L 84/48 99 09/05/23 15:45 78 12 83/52 99 09/05/23 15:30 79 11 L 81/45 99 09/05/23 15:15 77 11 L 80/44 98 09/05/23 15:00 79 10 L 79/52 100 09/05/23 14:45 81 15 87/52 96 09/05/23 14:30 85 18 93/68 94 L 09/05/23 14:15 85 16 92/53 100 09/05/23 14:00 86 17 89/55 91 L 09/05/23 13:45 85 10 L 89/45 94 L 09/05/23 13:30 85 8 L 90/52 95 09/05/23 13:15 86 13 93/57 92 L 09/05/23 13:00 88 15 92/52 92 L 09/05/23 12:45 87 101/56 09/05/23 12:30 88 13 98/59 97 09/05/23 12:15 88 11 L 98/50 99 09/05/23 12:05 86 09/05/23 12:00 98.9 F 87 11 L 96/54 97 09/05/23 11:45 89 21 104/56 97 Intake and Output 09/05/23 09/06/23 09/06/23 22:59 06:59 14:59 Intake Total 627.090 337.572 255.685 Output Total 115 179 15 Balance 512.090 158.572 240.685 Intake: IV 372 288 36 Albumin Human 25% 50 ml 50 In Empty Bag 1 bag @ 50 mls/hr IVPB ONCE ONE Rx#: [id number] Lactated Ringers 1,000 ml 120 @ 20 mls/hr IV .Q24H [facility] Rx#:[id number] NS cardiac output 160 240 30 pressure bags 42 48 6 Intake, IV Titration 15.090 49.572 219.685 Amount Insulin Regular 100 unit 15.090 In Sodium Chloride 0.9% 100 ml @ Per Protocol IV .Q0M [facility] Rx#:[id number] Milrinone-D5w Pmx 20 mg 81.296 In Dextrose/Water 1 100ml .bag @ 0.25 MCG/KG/MIN 5. 963 mls/hr IV .H25E17D [facility] Rx#:[id number] Norepinephrine 4 mg In 0 95.166 Sodium Chloride 0.9% 250 ml @ 0.02 MCG/KG/MIN 5. 979 mls/hr IV .Q24H [facility] Rx#:[id number] Vasopressin 20 unit In 49.572 43.223 Sodium Chloride 0.9% 50 ml @ 0.04 UNITS/MIN 6.12 mls/hr IV .Q8H20M [facility] Rx# :[id number] Oral 240 Output: Chest Tube Drainage 80 59 0 Left 60 27 0 Right 20 32 0 Urine 35 120 15 Other: Voiding Method Indwelling Catheter Indwelling Catheter ABP, PAP, CO, CI - Last 8 Hours Pulmonary Artery Pressure 43/12 Pulmonary Artery Pressure 39/11 Pulmonary Artery Pressure 38/11 Pulmonary Artery Pressure 41/15 Pulmonary Artery Pressure 41/11 Pulmonary Artery Pressure 44/14 Pulmonary Artery Pressure 45/12 Pulmonary Artery Pressure 44/12 Pulmonary Artery Pressure 45/12 Pulmonary Artery Pressure 43/11 Pulmonary Artery Pressure 44/13 Pulmonary Artery Pressure 43/13 Pulmonary Artery Pressure 44/18 Pulmonary Artery Pressure 44/13 Cardiac Output 5.1 Cardiac Output 5.2 Cardiac Output 5.1 Cardiac Output 5.1 Cardiac Index 2.9 Cardiac Index 2.9 Cardiac Index 2.9 Cardiac Index 2.9 Results - Lab Results Most recent lab results ABG pH 7.43 (7.35-7.45) 09/03/23 15:42 ABG pCO2 35 mmHg (35-45) 09/03/23 15:42 ABG pO2 126 mmHg (83-108) H 09/03/23 15:42 ABG HCO3 23 mmol/L (21-25) 09/03/23 15:42 ABG O2 Saturation 98.4 % (94-97) H 09/03/23 15:42 Calcium 8.1 mg/dL (8.4-10.2) L 09/06/23 04:20 Magnesium 2.6 mg/dL (1.6-2.3) H 09/03/23 04:01 09/06/23 04:20 09/06/23 04:20 Assessment and Plan Plan: Assessment: 1. Acute kidney injury secondary to ATN secondary to hypotension/cardiogenic shock. Baseline creatinine near 1 and is up to 2.91 today. Oliguric. UA fairly benign. 2. Coronary artery disease status post CABG x 3 September 02, 2023. 3. Shock maintained on Levophed, vasopressin, dopamine and dobutamine. 4. Cardiomyopathy with reduced ejection fraction. 5. Metabolic acidosis secondary to acute kidney injury. Plan: Wean vasopressors as able. Dobutamine started this morning. Status post IV albumin this morning. Hold off on diuretics today. Check renal ultrasound. Add bicarb. Avoid nephrotoxins. Continue to monitor renal function and urine output. Thank you for the consultation. I will continue to follow the patient with you during his hospital stay.
[2023-09-06 12:13] LABS: Glucose,Whole Blood 156 mg/dL (70-110)
--- NOTE | 2023-09-06 12:53 | US ---
EXAMINATION TYPE: US kidneys/renal and bladder DATE OF EXAM: 09/06/2023 Exam done portable in ICU COMPARISON: NONE CLINICAL INDICATION: Male, 63 years old with history of luther; EXAM MEASUREMENTS: Right Kidney: 11.0 x 4.3 x 5.1 cm Left Kidney: 11.0 x 4.2 x 5.1 cm Difficult and limited study due to exam done with patient sitting up in chair Right Kidney: No hydronephrosis or masses seen Left Kidney: No hydronephrosis or masses seen Bladder: not imaged due to above limitations IMPRESSION: 1. Visualized renal ultrasound appears unremarkable
[2023-09-06] MEDS: SODIUM BICARBONATE TAB 650 MG TAB PO SCH (13:13)
[2023-09-06 14:04] LABS: Glucose,Whole Blood 175 mg/dL (70-110)
--- NOTE | 2023-09-06 14:47 | P.PN ---
Subjective Progress Note Date: 09/06/23 Principal diagnosis: POD #4 off-pump coronary artery bypass grafting surgery x 3, left internal thoracic artery (in-situ) sequential to diagonal and left anterior descending coronary artery, right greater saphenous vein from aorta to obtuse marginal artery 1 63-year-old male patient, was brought into the intensive care unit after having an antibiotic balloon pump inserted this morning and this was done in preparation for coronary artery bypass surgery. The patient is known to have CAD, chronic CHF with impaired ejection fraction of 30 to 35%. The patient has been hospitalized with [facility] and an earlier cardiac catheterization from April 2023 showed a 70% left main, 70% proximal LAD, 30% circumflex and 70% obtuse marginal 1 and 60% mid RCA. The patient has impaired LV function with an EF around 30 to 35% along with mild to moderate MR, and se berny pulm hypertension. The patient is scheduled to undergo coronary artery bypass surgery tomorrow. He is currently on room air oxygen. Free of any chest pain. Hemodynamically stable. Augmented blood pressure is around 80. He has some developmental delay and his other comorbid conditions include diabetes mellitus type 2, hypertension and hyperlipidemia. Blood work shows a white cell count of 9, hemoglobin 11.8, platelet count of 206, normal coagulation profile, BUN of 27 with a creatinine of 1 and sodium levels at 138. LFTs are normal. His CAT scan of the chest that was done on 07/16/2023 showed cardiomegaly with small right and left-sided pleural effusion. This is consistent with CHF. No mediastinal lymphadenopathy. The patient is seen today September 02, 2023 in follow-up in the intensive care unit following surgery. He had undergone an on pump coronary artery bypass grafting x 3 with a left internal thoracic artery sequential to diagonal and the LAD. Right SVG from the aorta to the obtuse marginal #1. Left atrial appendage ligation and clipping. He remains intubated on the mechanical ventilator and assist-control mode at a rate of 14, tidal volume 500, FiO2 40% and a PEEP of 10. He remains on propofol at 20 mcg/kg/min. Lactated Ringer's at 50 MLS per hour. He is requiring vasopressin at 0.04 units/min. Insulin drip at 1 unit/h. Norepinephrine at 0.05 mcg/kg/min. Milrinone at 0.25 mcg/kg/min intra-aortic balloon pump remains in place. Mediastinal and right and left split chest tubes remain in place. Cardiac output is 4.7. Cardiac index 2.6. Received albumin. Receiving cefazolin. Heparin for DVT prophylaxis. White count 11.7. Hemoglobin 11.5. Platelets 84,000. INR 1.4. Sodium 141. Potassium 3.7. Bicarb 22. BUN 22. Creatinine 0.88. Glucose 101. X-ray no overt failure, pneumothorax or sizable consolidation. ABG's are pending. Patient was today on 09/03/2023, patient was extubated last night uneventfully, patient is now on 2 L nasal cannula, his intra-aortic balloon has been removed today patient remains on pressors and on inotropes. Still requiring norepinephrine at 0.02 mcg/kg/min still on milrinone 0.25 mcg/kg/min and on 0.04 units/min of vasopressin. Cardiac output today is 6.5 cardiac index is 3.7 PA pressure 41/17 CVP of 15. Continues to have mediastinal left and right-sided pleural chest tubes in place, had about 780 mL output since surgery. Chest x- ray is showing mostly postoperative changes labs were all reviewed. WBC count is 15.2 hemoglobin 9.2. Basic metabolic profile is normal, creatinine 1.10 up from 0.88 yesterday Reevaluated today on 09/04/2023, patient remains in the ICU on 3 L nasal cannula, insulin drip at 1.5 units/h still receiving norepinephrine at 0.08 mcg/kg/min milrinone 0.1 mcg/kg/min vasopressin at 0.03 units/min. Cardiac output is 5.0 cardiac index 2.8, patient remains marginal at best, he is sitting at the bedside chair, does not seem to be in distress, on 3 L nasal cannula. Chest x- ray showed no evidence of pulmonary edema no evidence of pneumonia he does have a small tiny apical left pneumothorax. WBC count is 17.7 hemoglobin 9.4. Basic metabolic profile is normal however his BUN is 34 creatinine is 1.52, apparently the patient does have sustained some acute kidney injury most likely related to hypotension/acute tubular necrosis. Patient was reevaluated today on 09/05/2023, remains in the ICU, still requiring multiple drips, he is on dopamine at 2.5 mcg/kg/min norepinephrine at 0.03 mcg/kg/min vasopressin 0.03 units/min patient is also on insulin at 1.5 units/h. Cardiac index remains low at 1.9 cardiac output is relatively low at 3.4. Pulmonary artery pressure 44/18, CVP is 12. Patient does not seem to be very much motivated, he is achieving less than 500 cc on incentive spirometry. The last patient is on 2 L nasal cannula, refusing to participate in physical activity, refusing incentive spirometry, chest tubes, remain in place, prognosis remains guarded. Chest x-ray showed mostly bibasilar atelectasis, mild interstitial prominence, I doubt left-sided pneumothorax as documented by radiology Reevaluate today on 09/06/2023, patient is basically about the same. Patient is in the ICU, he is on multiple drips including higher dose of inotrope, milrinone 0.25 he is on norepinephrine at 0.02 mcg/kg/min vasopressin at 0.03 units/min dopamine at 2.5 mcg/kg/min dobutamine at 2.5 mcg/kg/min insulin at 2.5 units an hour, urine output is low, patient received albumin cardiac index is 2.9 today cardiac output is 5.9. His renal functioning is getting a bit worse, patient apparently the patient is developing what seems to be a cardiorenal syndrome. Chest x-ray is showing atelectasis and bibasilar pleural effusions. Patient is not motivated, does not seem to be interested in getting motivated. And been doing poorly with incentive spirometry Objective - Vital Signs Vital signs: Vital Signs Temp 97.9 F 09/06/23 12:00 Pulse 90 09/06/23 13:30 Resp 14 09/06/23 13:30 BP 110/42 09/06/23 13:30 Pulse Ox 99 09/06/23 13:30 FiO2 40 09/02/23 20:33 Intake & Output 09/05/23 09/06/23 09/06/23 18:59 06:59 18:59 Intake Total 1759.844 516.369 781.922 Output Total 290 214 80 Balance 1469.844 302.369 701.922 Intake: IV 715 462 232 Albumin Human 25% 50 ml 50 In Empty Bag 1 bag @ 50 mls/hr IVPB ONCE ONE Rx#: [id number] Albumin Human 5% 250 ml 60 In Empty Bag 1 bag @ 250 mls/hr IVPB ONCE ONE Rx#: [id number] Lactated Ringers 1,000 ml 450 30 60 @ 20 mls/hr IV .Q24H [facility] Rx#:[id number] NS cardiac output 140 360 70 pressure bags 75 72 42 Intake, IV Titration 164.844 54.369 299.922 Amount Insulin Regular 100 unit 21.610 4.797 47.849 In Sodium Chloride 0.9% 100 ml @ Per Protocol IV .Q0M [facility] Rx#:[id number] Milrinone-D5w Pmx 20 mg 81.296 In Dextrose/Water 1 100ml .bag @ 0.25 MCG/KG/MIN 5. 963 mls/hr IV .[id number] [facility] Rx#:[id number] Norepinephrine 4 mg In 92.234 127.554 Sodium Chloride 0.9% 250 ml @ 0.02 MCG/KG/MIN 5. 979 mls/hr IV .Q24H [facility] Rx#:[id number] Vasopressin 20 unit In 51 49.572 43.223 Sodium Chloride 0.9% 50 ml @ 0.04 UNITS/MIN 6.12 mls/hr IV .Q8H20M [facility] Rx# :[id number] Oral 880 Albumin 250 Albumin Human 5% 250 ml 250 In Empty Bag 1 bag @ 250 mls/hr IVPB ONCE ONE Rx#: [id number] Output: Chest Tube Drainage 160 79 0 Left 80 47 0 Lt and Rt Pleural CT 20 Mediastinal 20 Right 40 32 0 Urine 130 135 80 Other: Voiding Method Indwelling Catheter Indwelling Catheter Indwelling Catheter ABP, PAP, CO, CI - Last Documented Arterial Blood Pressure 83/58 Pulmonary Artery Pressure 49/15 Cardiac Output 6.4 Cardiac Index 3.6 - Exam GENERAL EXAM: Reveals 63-year-old white male extubated in no distress on 2 L nasal cannula HEAD: Normocephalic. EYES: PERRLA, EOMI. NOSE: Clear with pink turbinates. THROAT: No erythema or exudates. NECK: No masses, no JVD. Left IJ Arcadia-Isabell catheter in place. CHEST: Sternal dressing dry and intact. Heart hugger in place. LUNGS: Diminished breath sound bilaterally no rhonchi no wheezes CVS: S1 and S2 normal with no audible murmur, regular rhythm. ABDOMEN: No hepatosplenomegaly, diminished bowel sounds, no guarding or rigidity. SKIN: No rashes CENTRAL NERVOUS SYSTEM: Alert and oriented x 3 no gross focal deficits EXTREMITIES: no clubbing edema or cyanosis - Labs CBC & Chem 7: 09/06/23 04:20 09/06/23 04:20 Labs: Abnormal Lab Results - Last 24 Hours (Table) 09/05/23 09/05/23 09/05/23 Range/Units 14:47 16:11 17:30 WBC (3.8-10.6) k/uL RBC (4.30-5.90) m/uL Hgb (13.0-17.5) gm/dL Hct (39.0-53.0) % Plt Count (150-450) k/uL Sodium (137-145) mmol/L Carbon Dioxide (22-30) mmol/L BUN (9-20) mg/dL Creatinine (0.66-1.25) mg/dL Glucose (74-99) mg/dL POC Glucose (mg/dL) 184 H 167 H 151 H (70-110) mg/dL Calcium (8.4-10.2) mg/dL AST (17-59) U/L ALT (4-49) U/L Total Protein (6.3-8.2) g/dL Albumin (3.5-5.0) g/dL 09/05/23 09/05/23 09/05/23 Range/Units 19:00 22:39 23:08 WBC (3.8-10.6) k/uL RBC (4.30-5.90) m/uL Hgb (13.0-17.5) gm/dL Hct (39.0-53.0) % Plt Count (150-450) k/uL Sodium (137-145) mmol/L Carbon Dioxide (22-30) mmol/L BUN (9-20) mg/dL Creatinine (0.66-1.25) mg/dL Glucose (74-99) mg/dL POC Glucose (mg/dL) 156 H 123 H 138 H (70-110) mg/dL Calcium (8.4-10.2) mg/dL AST (17-59) U/L ALT (4-49) U/L Total Protein (6.3-8.2) g/dL Albumin (3.5-5.0) g/dL 09/06/23 09/06/23 09/06/23 Range/Units 00:31 01:58 04:20 WBC 14.0 H (3.8-10.6) k/uL RBC 2.81 L (4.30-5.90) m/uL Hgb 8.7 L (13.0-17.5) gm/dL Hct 26.8 L (39.0-53.0) % Plt Count 109 L (150-450) k/uL Sodium (137-145) mmol/L Carbon Dioxide (22-30) mmol/L BUN (9-20) mg/dL Creatinine (0.66-1.25) mg/dL Glucose (74-99) mg/dL POC Glucose (mg/dL) 136 H 133 H (70-110) mg/dL Calcium (8.4-10.2) mg/dL AST (17-59) U/L ALT (4-49) U/L Total Protein (6.3-8.2) g/dL Albumin (3.5-5.0) g/dL 09/06/23 09/06/23 09/06/23 Range/Units 04:20 04:43 06:26 WBC (3.8-10.6) k/uL RBC (4.30-5.90) m/uL Hgb (13.0-17.5) gm/dL Hct (39.0-53.0) % Plt Count (150-450) k/uL Sodium 136 L (137-145) mmol/L Carbon Dioxide 17 L (22-30) mmol/L BUN 54 H (9-20) mg/dL Creatinine 2.91 H (0.66-1.25) mg/dL Glucose 132 H (74-99) mg/dL POC Glucose (mg/dL) 140 H 152 H (70-110) mg/dL Calcium 8.1 L (8.4-10.2) mg/dL AST 1064 H (17-59) U/L ALT 291 H (4-49) U/L Total Protein 5.4 L (6.3-8.2) g/dL Albumin 3.3 L (3.5-5.0) g/dL 09/06/23 09/06/23 09/06/23 Range/Units 09:09 10:11 12:11 WBC (3.8-10.6) k/uL RBC (4.30-5.90) m/uL Hgb (13.0-17.5) gm/dL Hct (39.0-53.0) % Plt Count (150-450) k/uL Sodium (137-145) mmol/L Carbon Dioxide (22-30) mmol/L BUN (9-20) mg/dL Creatinine (0.66-1.25) mg/dL Glucose (74-99) mg/dL POC Glucose (mg/dL) 150 H 138 H 156 H (70-110) mg/dL Calcium (8.4-10.2) mg/dL AST (17-59) U/L ALT (4-49) U/L Total Protein (6.3-8.2) g/dL Albumin (3.5-5.0) g/dL 09/06/23 Range/Units 14:03 WBC (3.8-10.6) k/uL RBC (4.30-5.90) m/uL Hgb (13.0-17.5) gm/dL Hct (39.0-53.0) % Plt Count (150-450) k/uL Sodium (137-145) mmol/L Carbon Dioxide (22-30) mmol/L BUN (9-20) mg/dL Creatinine (0.66-1.25) mg/dL Glucose (74-99) mg/dL POC Glucose (mg/dL) 175 H (70-110) mg/dL Calcium (8.4-10.2) mg/dL AST (17-59) U/L ALT (4-49) U/L Total Protein (6.3-8.2) g/dL Albumin (3.5-5.0) g/dL Assessment and Plan Assessment: Impression: Symptomatic multivessel coronary artery disease, Status post on pump coronary artery bypass grafting x 3. Left internal thoracic artery sequential to diag onal and LAD. Right SVG from aorta to obtuse marginal artery #1. Postoperative day #4 Chronic systolic heart failure with impaired ejection fraction of 30 to 35% patient is still requiring significant amount of inotropes and pressors Peripheral vascular disease Diabetes mellitus type 2 with an HbA1c of 10.9 Hypertension Hyperlipidemia History of developmental delay Bipolar disorder Chronic anxiety History of smoking quit more than 20 years ago Left apical pneumothorax, expected Acute kidney injury, suspect ATN, suspect cardiorenal syndrome. Commendation: Continue pressors and inotropes continue to monitor cardiac index and cardiac output Continue dopamine, continue dobutamine Continue Plavix beta-blockers aspirin and statin Titrate pressors and inotropes as tolerated Continue pain control management Continue monitoring via Arcadia-Isabell catheter for now while the patient is requiring inotropes and pressors Daily x-rays of the chest Daily labs Incentive spirometry Ambulation Patient remains unmotivated Prognosis is guarded Will continue to follow Time with Patient: Less than 30
[2023-09-06 16:10] LABS: Glucose,Whole Blood 185 mg/dL (70-110)
--- NOTE | 2023-09-06 16:57 | P.PN ---
Subjective Progress Note Date: 09/06/23 63-year-old gentleman with past medical history significant for coronary artery disease, chronic congestive heart failure with ejection fraction of 30%, hypertension hyperlipidemia diabetes mellitus obesity bipolar disorder cardiomyopathy developmental delay history of nicotine dependence who has been admitted with shortness of breath and lower extremity edema. Patient underwent cardiac catheterization right heart catheterization and intra-aortic balloon pump. * Patient has comorbidities including diabetes mellitus type 2, peripheral arterial disease, bipolar disorder, history of anxiety. * Patient to undergo myocardial revascularization 09/02/2023. * 09/03/23 : Patient admitted to medical ICU. Patient was successfully extubated postprocedure. S/p intra-aortic balloon pump which remains in place through right femoral access. Patient remains on norepinephrine drip, Primacor drip, vasopressin. Bilateral chest tubes remained in place. Followed up by medical ICU and cardiac surgery. Follow-up blood work obtained including WBC 15.2 hemoglobin 9.2 platelet count of 98, serum chemistry sodium 141 potassium 4.7 carbon dioxide 24 BUN 26 creatinine 1.1 blood glucose 118-1 33 * 09/04/23: Patient seen and evaluated in medical ICU room 266, patient continues to remain on Levophed, vasopressin and pressor support. Blood work reviewed WBC 17.7 hemoglobin 9.4 platelet 117. Serum chemistry showed sodium 137 potassium 4.9 carbon dioxide 18 BUN 34 creatinine 1.52 blood glucose 123. Overnight patient was refusing to participate with care, patient counseled by cardiac surgery team as well. Brother at bedside, patient does follow commands, care plan discussed with nursing staff * 09/05/23: Patient seen and evaluated bedside, vitals reviewed blood pressure running in the 90s overnight. Patient remains on 2 L of oxygen. Blood work reviewed CBC shows WBC 14.3 hemoglobin 9.3 platelet 105 serum chemistry sodium 137 potassium 5.2 carbon dioxide 16 BUN 44 creatinine 1.99 total bilirubin 1.3 AST 464 ALT 128 will need to be monitored, p.atient remains lethargic however easily arousable 09/06/2023 -- Patient is seen and evaluated in ICU at bedside Vital signs reviewed and temperature of 97.9, pulse 90, respiration 14 and blood pressure of 110/40 Lab review shows WBC 14.2, hemoglobin of 8.7 and platelet count of 109, sodium 136, potassium 4.8, BUNs/creatinine of 54/2.91; concern about worsening renal function likely related to cardiorenal syndrome; dopamine has been discontinued Chest x-ray reveals atelectasis and bibasilar pleural effusion --Patient remains on pressors and inotropic agents; cardiac index and cardiac output is being monitored closely -Patient remains on Plavix, aspirin, statins and beta-blockers -- Recommended to increase activity Objective - Vital Signs Vital signs: Vital Signs Temp 99.3 F 09/06/23 00:00 Pulse 94 09/06/23 09:42 Resp 16 09/06/23 09:42 BP 93/56 09/06/23 07:00 Pulse Ox 95 09/06/23 09:35 FiO2 40 09/02/23 20:33 Intake & Output 09/05/23 09/06/23 09/06/23 18:59 06:59 18:59 Intake Total 1759.844 516.369 255.685 Output Total 290 214 15 Balance 1469.844 302.369 240.685 Intake: IV 715 462 36 Albumin Human 25% 50 ml 50 In Empty Bag 1 bag @ 50 mls/hr IVPB ONCE ONE Rx#: [id number] Lactated Ringers 1,000 ml 450 30 @ 20 mls/hr IV .Q24H [facility] Rx#:[id number] NS cardiac output 140 360 30 pressure bags 75 72 6 Intake, IV Titration 164.844 54.369 219.685 Amount Insulin Regular 100 unit 21.610 4.797 In Sodium Chloride 0.9% 100 ml @ Per Protocol IV .Q0M [facility] Rx#:[id number] Milrinone-D5w Pmx 20 mg 81.296 In Dextrose/Water 1 100ml .bag @ 0.25 MCG/KG/MIN 5. 963 mls/hr IV .[id number] [facility] Rx#:[id number] Norepinephrine 4 mg In 92.234 95.166 Sodium Chloride 0.9% 250 ml @ 0.02 MCG/KG/MIN 5. 979 mls/hr IV .Q24H [facility] Rx#:[id number] Vasopressin 20 unit In 51 49.572 43.223 Sodium Chloride 0.9% 50 ml @ 0.04 UNITS/MIN 6.12 mls/hr IV .Q8H20M [facility] Rx# :[id number] Oral 880 Output: Chest Tube Drainage 160 79 0 Left 80 47 0 Lt and Rt Pleural CT 20 Mediastinal 20 Right 40 32 0 Urine 130 135 15 Other: Voiding Method Indwelling Catheter Indwelling Catheter ABP, PAP, CO, CI - Last Documented Arterial Blood Pressure 83/58 Pulmonary Artery Pressure 43/12 Cardiac Output 5.1 Cardiac Index 2.9 - Exam GENERAL: The patient is alert and oriented x3, ill appearance, nasal cannula in place HEENT: Pupils are round and equally reacting to light. EOMI. CARDIOVASCULAR: S1 and S2 present. Chest brace in place PULMONARY: Decreased breath sounds bilaterally, chest tube in place, Hobson catheter in place ABDOMEN: Soft, nontender, nondistended, normoactive bowel sounds. No palpable organomegaly. MUSCULOSKELETAL: No joint swelling or deformity. EXTREMITIES: Lower extremity edema noted. NEUROLOGICAL: Exam limited secondary to lethargy SKIN: No rashes - Labs CBC & Chem 7: 09/06/23 04:20 09/06/23 04:20 Labs: Abnormal Lab Results - Last 24 Hours (Table) 09/05/23 09/05/23 09/05/23 Range/Units 12:24 14:47 16:11 WBC (3.8-10.6) k/uL RBC (4.30-5.90) m/uL Hgb (13.0-17.5) gm/dL Hct (39.0-53.0) % Plt Count (150-450) k/uL Sodium (137-145) mmol/L Carbon Dioxide (22-30) mmol/L BUN (9-20) mg/dL Creatinine (0.66-1.25) mg/dL Glucose (74-99) mg/dL POC Glucose (mg/dL) 142 H 184 H 167 H (70-110) mg/dL Calcium (8.4-10.2) mg/dL AST (17-59) U/L ALT (4-49) U/L Total Protein (6.3-8.2) g/dL Albumin (3.5-5.0) g/dL 09/05/23 09/05/23 09/05/23 Range/Units 17:30 19:00 22:39 WBC (3.8-10.6) k/uL RBC (4.30-5.90) m/uL Hgb (13.0-17.5) gm/dL Hct (39.0-53.0) % Plt Count (150-450) k/uL Sodium (137-145) mmol/L Carbon Dioxide (22-30) mmol/L BUN (9-20) mg/dL Creatinine (0.66-1.25) mg/dL Glucose (74-99) mg/dL POC Glucose (mg/dL) 151 H 156 H 123 H (70-110) mg/dL Calcium (8.4-10.2) mg/dL AST (17-59) U/L ALT (4-49) U/L Total Protein (6.3-8.2) g/dL Albumin (3.5-5.0) g/dL 09/05/23 09/06/23 09/06/23 Range/Units 23:08 00:31 01:58 WBC (3.8-10.6) k/uL RBC (4.30-5.90) m/uL Hgb (13.0-17.5) gm/dL Hct (39.0-53.0) % Plt Count (150-450) k/uL Sodium (137-145) mmol/L Carbon Dioxide (22-30) mmol/L BUN (9-20) mg/dL Creatinine (0.66-1.25) mg/dL Glucose (74-99) mg/dL POC Glucose (mg/dL) 138 H 136 H 133 H (70-110) mg/dL Calcium (8.4-10.2) mg/dL AST (17-59) U/L ALT (4-49) U/L Total Protein (6.3-8.2) g/dL Albumin (3.5-5.0) g/dL 09/06/23 09/06/23 09/06/23 Range/Units 04:20 04:20 04:43 WBC 14.0 H (3.8-10.6) k/uL RBC 2.81 L (4.30-5.90) m/uL Hgb 8.7 L (13.0-17.5) gm/dL Hct 26.8 L (39.0-53.0) % Plt Count 109 L (150-450) k/uL Sodium 136 L (137-145) mmol/L Carbon Dioxide 17 L (22-30) mmol/L BUN 54 H (9-20) mg/dL Creatinine 2.91 H (0.66-1.25) mg/dL Glucose 132 H (74-99) mg/dL POC Glucose (mg/dL) 140 H (70-110) mg/dL Calcium 8.1 L (8.4-10.2) mg/dL AST 1064 H (17-59) U/L ALT 291 H (4-49) U/L Total Protein 5.4 L (6.3-8.2) g/dL Albumin 3.3 L (3.5-5.0) g/dL 09/06/23 09/06/23 09/06/23 Range/Units 06:26 09:09 10:11 WBC (3.8-10.6) k/uL RBC (4.30-5.90) m/uL Hgb (13.0-17.5) gm/dL Hct (39.0-53.0) % Plt Count (150-450) k/uL Sodium (137-145) mmol/L Carbon Dioxide (22-30) mmol/L BUN (9-20) mg/dL Creatinine (0.66-1.25) mg/dL Glucose (74-99) mg/dL POC Glucose (mg/dL) 152 H 150 H 138 H (70-110) mg/dL Calcium (8.4-10.2) mg/dL AST (17-59) U/L ALT (4-49) U/L Total Protein (6.3-8.2) g/dL Albumin (3.5-5.0) g/dL Assessment and Plan Assessment: * Multivessel coronary artery disease, ischemic cardiomyopathy ejection fraction 30% * s/p CABG 09/02/2023 * Transaminitis secondary to shock liver * Hypertension * Hyperlipidemia * Diabetes mellitus type 2 with HbA1c 7.4 * History of peripheral arterial disease * Bipolar disorder * History of anxiety * Patient is s/p CABG, postprocedure continue patient on aspirin, Plavix, statin, on metoprolol with holding parameters , Postprocedure intra-aortic balloon removed on 09/02 * Postprocedure continue patient on continuous insulin infusion will transition to subcu insulin based on blood glucose levels, blood glucose ranging in 108 - 132 * Post CABG patient remains on Levophed, vasopressin, Primacor, to be weaned off as tolerated * Complex patient continue management and medical ICU
[2023-09-06 18:04] LABS: Glucose,Whole Blood 157 mg/dL (70-110)
[2023-09-06 20:01] LABS: Glucose,Whole Blood 173 mg/dL (70-110)
[2023-09-06 22:02] LABS: Glucose,Whole Blood 185 mg/dL (70-110)
[2023-09-06 23:59] LABS: Glucose,Whole Blood 166 mg/dL (70-110)
[2023-09-07 02:02] LABS: Glucose,Whole Blood 160 mg/dL (70-110)
[2023-09-07 03:52] LABS: Glucose,Whole Blood 137 mg/dL (70-110)
[2023-09-07 05:25] LABS: Basophils % (A) 0 %; Eosinophils # (A) 0.1 k/uL (0-0.7); Eosinophils % (A) 1 %; HCT 25.5 % (39.0-53.0); HGB 8.4 gm/dL (13.0-17.5); Lymphocytes # (A) 0.6 k/uL (1.0-4.8); Lymphocytes % (A) 8 %; MCH 31.3 pg (25.0-35.0); MCHC 32.8 g/dL (31.0-37.0); MCV 95.3 fL (80.0-100.0); Mean Platelet Volume 9.5; Monocytes # (A) 0.4 k/uL (0-1.0); Monocytes % (A) 6 %; Neutrophils # (A) 6.1 k/uL (1.3-7.7); Neutrophils % (A) 84 %; RBC 2.68 m/uL (4.30-5.90); RDW 14.8 % (11.5-15.5); WBC 7.3 k/uL (3.8-10.6)
[2023-09-07 05:36] LABS: ALT 189 U/L (4-49); AST 348 U/L (17-59); African American GFR (CKD) 20 (>60 ml/min/1.73 sqM); Albumin 3.3 g/dL (3.5-5.0); Alkaline Phosphatase 103 U/L (38-126); Anion Gap 11 mmol/L; Blood Urea Nitrogen 63 mg/dL (9-20); Calcium 7.7 mg/dL (8.4-10.2); Carbon Dioxide 16 mmol/L (22-30); Chloride 109 mmol/L (98-107); Glucose 119 mg/dL (74-99); Magnesium 2.9 mg/dL (1.6-2.3); Non-African American GFR(CKD) 18 (>60 ml/min/1.73 sqM); Potassium 4.4 mmol/L (3.5-5.1); Sodium 136 mmol/L (137-145); Total Protein 5.5 g/dL (6.3-8.2)
[2023-09-07 05:39] LABS: Platelet Count 81 k/uL (150-450)
[2023-09-07 06:03] LABS: Glucose,Whole Blood 122 mg/dL (70-110)
[2023-09-07 06:59] LABS: Glucose,Whole Blood 119 mg/dL (70-110)
--- NOTE | 2023-09-07 07:54 | P.PN ---
Subjective Progress Note Date: 09/07/23 Principal diagnosis: Triple-vessel coronary artery disease with left main disease. Previous medical history of hypertension, hyperlipidemia, diabetes mellitus, chronic systolic he art failure with reduced ejection fraction/ischemic cardiomyopathy, bipolar disorder, obesity, peripheral vascular disease, developmental delay, previous tobacco dependence, noncompliance POD #6 right heart catheterization, ultrasound guided access, placement of intra-aortic balloon pump from right femoral access performed by Dr. Monreal. POD #5 on pump coronary artery bypass grafting x 3, left internal thoracic artery (in-situ) sequential to diagonal and left anterior descending coronary artery, right greater saphenous vein from aorta to obtuse marginal artery #1, left atrial appendage ligation with #35mm AtriClip, endoscopic bilateral greater saphenous vein harvest, graft flow measurements using the [employer] flow meter system, trans-esophageal echo Postoperative acute blood loss anemia and thrombocytopenia, expected given hemodilution and cardiopulmonary bypass LEONARDO, elevated transaminases, cardiogenic shock, likely due to hypoperfusion The patient was seen and examined sitting up in recliner this morning. He is in no acute distress. Currently in sinus rhythm, blood pressure marginal but MAPs in the 70s on low-dose Levophed, vasopressin, dopamine, dobutamine. Remains on 2 L nasal cannula with oxygen saturation in the high 90s. Patient continues to refuse to participate in his care, very minimal effort. Refused IS and coughing this morning, refused to open his eyes, nursing unable to get him to stand and needed karin lift to get him in recliner. Right internal jugular Bairoil/Cordis, right/left pleural chest tubes all remain. Prognosis remains guarded as the patient has history of noncompliance, verbalized multiple times prior to surgery that he does not do anything before 10 AM. Chest x-ray, labs reviewed. Kidney function has worsened, no change in vitals/urine output with addition of dobutamine. Liver function has improved. Echo reviewed with Dr. Chávez yesterday and Dr. Weller via phone. Objective - Vital Signs Vital signs: Vital Signs Temp 97.9 F 09/06/23 16:00 Pulse 82 09/07/23 07:00 Resp 14 09/07/23 07:00 BP 109/55 09/07/23 07:00 Pulse Ox 99 09/07/23 07:00 FiO2 40 09/02/23 20:33 Intake & Output 09/06/23 09/07/23 09/07/23 18:59 06:59 18:59 Intake Total 1101.520 837.465 56 Output Total 195 225 10 Balance 906.520 612.465 46 Intake: IV 408 396 56 Albumin Human 5% 250 ml 40 In Empty Bag 1 bag @ 250 mls/hr IVPB ONCE ONE Rx#: [id number] Lactated Ringers 1,000 ml 200 220 20 @ 20 mls/hr IV .Q24H [facility] Rx#:[id number] NS cardiac output 90 110 30 pressure bags 78 66 6 Intake, IV Titration 443.520 441.465 Amount DOBUTamine DRIP 500 mg In 234.525 Dextrose/Water 1 250ml. bag @ 5 MCG/KG/MIN 11.925 mls/hr IV .[id number] [facility] Rx#:[id number] Insulin Regular 100 unit 62.882 41.266 In Sodium Chloride 0.9% 100 ml @ Per Protocol IV .Q0M [facility] Rx#:[id number] Milrinone-D5w Pmx 20 mg 81.296 In Dextrose/Water 1 100ml .bag @ 0.25 MCG/KG/MIN 5. 963 mls/hr IV .[id number] [facility] Rx#:[id number] Norepinephrine 4 mg In 212.514 118.397 Sodium Chloride 0.9% 250 ml @ 0.02 MCG/KG/MIN 5. 979 mls/hr IV .Q24H [facility] Rx#:[id number] Vasopressin 20 unit In 86.828 47.277 Sodium Chloride 0.9% 50 ml @ 0.04 UNITS/MIN 6.12 mls/hr IV .Q8H20M [facility] Rx# :[id number] Albumin 250 Albumin Human 5% 250 ml 250 In Empty Bag 1 bag @ 250 mls/hr IVPB ONCE ONE Rx#: [id number] Output: Chest Tube Drainage 50 40 0 Left 0 0 0 Right 50 40 0 Urine 145 185 10 Other: Voiding Method Indwelling Catheter Indwelling Catheter ABP, PAP, CO, CI - Last Documented Arterial Blood Pressure 83/58 Pulmonary Artery Pressure 43/15 Cardiac Output 3.9 Cardiac Index 2.2 - Exam CONSTITUTIONAL: Appears comfortable, no acute distress RESPIRATORY: Lungs sounds diminished bilaterally. Respirations even, nonlabored. Currently on 2 L nasal cannula with oxygen saturation 99%. Uncooperative with incentive spirometry, coughing CARDIOVASCULAR: S1, S2 present. Regular rate and rhythm, sinus rhythm on telemetry. Sternum stable. Palpable peripheral pulses bilaterally. Generalized edema present. No calf pain or tenderness noted. Heart hugger, antiembolism stockings, SCDs present. GASTROINTESTINAL: Abdomen soft, nontender, nondistended. Active bowel sounds present 4 quadrants. Tolerating minimal liquids GENITOURINARY: Hobson present draining clear, yellow urine. Output overnight 10-15 mL per hour, 330 mL in the last 24 hours INTEGUMENTARY: Skin is warm and dry. Anterior chest incision well approximated and covered with dry intact dressing. Bilateral lower extremity EVH sites well approximated without redness or drainage. NEUROLOGIC: Cranial nerves II through XII intact MUSKULOSKELETAL: Able to move all extremities, strength equal bilaterally, generalized weakness present although difficult to assess as patient isn't cooperating with care PSYCHIATRIC: Alert and oriented to person place and time INVASIVE LINES AND TUBES: Left/right pleural chest tubes present and connected to wall suction, no air leaks present. Right pleural tube with 40 mL serosanguineous drainage overnight, 150 mL in the last 24 hours. Left pleural chest tube with no output in the last 24 hours. A/V epicardial pacemaker wires present, grounded. Right internal jugular Bairoil/Cordis, right brachial arterial line present. Last CO/CI 3.9/2.2, PA 43/14, CVP 12 - Allied health notes Allied health notes reviewed: nursing - Labs CBC & Chem 7: 09/07/23 05:08 09/07/23 05:08 Labs: Abnormal Lab Results - Last 24 Hours (Table) 09/06/23 09/06/23 09/06/23 Range/Units 09:09 10:11 12:11 RBC (4.30-5.90) m/uL Hgb (13.0-17.5) gm/dL Hct (39.0-53.0) % Plt Count (150-450) k/uL Lymphocytes # (1.0-4.8) k/uL Sodium (137-145) mmol/L Chloride (98-107) mmol/L Carbon Dioxide (22-30) mmol/L BUN (9-20) mg/dL Creatinine (0.66-1.25) mg/dL Glucose (74-99) mg/dL POC Glucose (mg/dL) 150 H 138 H 156 H (70-110) mg/dL Calcium (8.4-10.2) mg/dL Magnesium (1.6-2.3) mg/dL AST (17-59) U/L ALT (4-49) U/L Total Protein (6.3-8.2) g/dL Albumin (3.5-5.0) g/dL 09/06/23 09/06/23 09/06/23 Range/Units 14:03 16:09 18:02 RBC (4.30-5.90) m/uL Hgb (13.0-17.5) gm/dL Hct (39.0-53.0) % Plt Count (150-450) k/uL Lymphocytes # (1.0-4.8) k/uL Sodium (137-145) mmol/L Chloride (98-107) mmol/L Carbon Dioxide (22-30) mmol/L BUN (9-20) mg/dL Creatinine (0.66-1.25) mg/dL Glucose (74-99) mg/dL POC Glucose (mg/dL) 175 H 185 H 157 H (70-110) mg/dL Calcium (8.4-10.2) mg/dL Magnesium (1.6-2.3) mg/dL AST (17-59) U/L ALT (4-49) U/L Total Protein (6.3-8.2) g/dL Albumin (3.5-5.0) g/dL 09/06/23 09/06/23 09/06/23 Range/Units 20:00 22:00 23:58 RBC (4.30-5.90) m/uL Hgb (13.0-17.5) gm/dL Hct (39.0-53.0) % Plt Count (150-450) k/uL Lymphocytes # (1.0-4.8) k/uL Sodium (137-145) mmol/L Chloride (98-107) mmol/L Carbon Dioxide (22-30) mmol/L BUN (9-20) mg/dL Creatinine (0.66-1.25) mg/dL Glucose (74-99) mg/dL POC Glucose (mg/dL) 173 H 185 H 166 H (70-110) mg/dL Calcium (8.4-10.2) mg/dL Magnesium (1.6-2.3) mg/dL AST (17-59) U/L ALT (4-49) U/L Total Protein (6.3-8.2) g/dL Albumin (3.5-5.0) g/dL 09/07/23 09/07/23 09/07/23 Range/Units 02:00 03:51 05:08 RBC 2.68 L (4.30-5.90) m/uL Hgb 8.4 L (13.0-17.5) gm/dL Hct 25.5 L (39.0-53.0) % Plt Count 81 L (150-450) k/uL Lymphocytes # 0.6 L (1.0-4.8) k/uL Sodium (137-145) mmol/L Chloride (98-107) mmol/L Carbon Dioxide (22-30) mmol/L BUN (9-20) mg/dL Creatinine (0.66-1.25) mg/dL Glucose (74-99) mg/dL POC Glucose (mg/dL) 160 H 137 H (70-110) mg/dL Calcium (8.4-10.2) mg/dL Magnesium (1.6-2.3) mg/dL AST (17-59) U/L ALT (4-49) U/L Total Protein (6.3-8.2) g/dL Albumin (3.5-5.0) g/dL 09/07/23 09/07/23 09/07/23 Range/Units 05:08 06:01 06:58 RBC (4.30-5.90) m/uL Hgb (13.0-17.5) gm/dL Hct (39.0-53.0) % Plt Count (150-450) k/uL Lymphocytes # (1.0-4.8) k/uL Sodium 136 L (137-145) mmol/L Chloride 109 H (98-107) mmol/L Carbon Dioxide 16 L (22-30) mmol/L BUN 63 H (9-20) mg/dL Creatinine 3.54 H (0.66-1.25) mg/dL Glucose 119 H (74-99) mg/dL POC Glucose (mg/dL) 122 H 119 H (70-110) mg/dL Calcium 7.7 L (8.4-10.2) mg/dL Magnesium 2.9 H (1.6-2.3) mg/dL AST 348 H (17-59) U/L ALT 189 H (4-49) U/L Total Protein 5.5 L (6.3-8.2) g/dL Albumin 3.3 L (3.5-5.0) g/dL - Imaging and Cardiology Chest x-ray: image reviewed Assessment and Plan Assessment: Triple-vessel coronary artery disease with left main disease, status post three- vessel on pump CABG History of hypertension, currently hypotensive from vasoplegia, remains on IV vaso and levo Hyperlipidemia, treated, cholesterol 135, LDL 60, triglycerides 178 Diabetes mellitus, preoperative hemoglobin A1c 7.4% Chronic systolic heart failure with reduced ejection fraction/ischemic cardiomyopathy, EF 30-35%, preoperative placement of intra-aortic balloon pump Bipolar disorder Obesity Peripheral vascular disease, right FAIZAN 0.95, left FAIZAN 0.97 Developmental delay Previous tobacco dependence Moderate COPD, preoperative FEV1 55% of predicted Noncompliance Postoperative acute blood loss anemia and thrombocytopenia, expected Incidental finding of tiny left pneumothorax, not a complication, resolved LEONARDO, elevated transaminases, cardiogenic shock, likely from hypoperfusion Plan: Continue aspirin, Plavix and beta-feliberto with hold parameters. Statin discontinued due to elevated transaminases, will restart when able Continue vaso at current rate, wean levo as tolerated. Dopamine discontinued, continue dobutamine Wean oxygen as tolerated. Encourage use of incentive spirometry 10 times every hour while awake. Bronchodilators per pulmonology Increase activity, ambulate as tolerated. PT/OT/cardiac rehab following, patient resistant to participate Will monitor daily labs and chest x-rays. Electrolyte replacement per protocol Pain control per current medication regimen. Avoid to Toradol due to his ibuprofen allergy. Limit narcotics as much as possible Continue Hobson catheter for another 24 hours, continue to record strict accurate intake and output Will discontinue pleural chest tubes Insulin management per internal medicine GI/DVT prophylaxis Continue Bairoil-Isabell catheter with hemodynamic monitoring Daily weights Patient needs continued encouragement to participate in his care, unfortunately he has a history of refusal, was discussed at length with the patient and his brother that refusal to participate in his care could result in significant complications More recommendations to follow based on patient's clinical course.
[2023-09-07] MEDS: ASPIRIN 81 MG PO SCH (08:15)
[2023-09-07 09:31] LABS: Glucose,Whole Blood 94 mg/dL (70-110)
[2023-09-07] MEDS: FUROSEMIDE 10 MG/ML 10 ML VIAL IV STA (11:15)
--- NOTE | 2023-09-07 11:27 | P.PN ---
Subjective patient is seen for follow-up for acute kidney injury, oliguric hemodynamic ATN. Status post coronary artery bypass surgery, postop day #5 Urine output at 10 mL an hour. He has been 0 over the last 2 hours. Patient is maintained on dobutamine at 5 mcg/kg/m. EF is 20-25%. levo fed at 0.06 mcg/kg/min also maintained on vasopressin Objective - Vital Signs Vital signs: Vital Signs Temp 36.9 F L 09/07/23 08:00 Pulse 80 09/07/23 10:00 Resp 17 09/07/23 10:00 BP 109/56 09/07/23 10:00 Pulse Ox 100 09/07/23 10:00 FiO2 40 09/02/23 20:33 Intake & Output 09/06/23 09/07/23 09/07/23 18:59 06:59 18:59 Intake Total 1101.520 837.465 338 Output Total 195 225 20 Balance 906.520 612.465 318 Intake: IV 408 396 138 Albumin Human 5% 250 ml 40 In Empty Bag 1 bag @ 250 mls/hr IVPB ONCE ONE Rx#: [id number] Lactated Ringers 1,000 ml 200 220 60 @ 20 mls/hr IV .Q24H [facility] Rx#:[id number] NS cardiac output 90 110 60 pressure bags 78 66 18 Intake, IV Titration 443.520 441.465 Amount DOBUTamine DRIP 500 mg In 234.525 Dextrose/Water 1 250ml. bag @ 5 MCG/KG/MIN 11.925 mls/hr IV .[id number] [facility] Rx#:[id number] Insulin Regular 100 unit 62.882 41.266 In Sodium Chloride 0.9% 100 ml @ Per Protocol IV .Q0M [facility] Rx#:[id number] Milrinone-D5w Pmx 20 mg 81.296 In Dextrose/Water 1 100ml .bag @ 0.25 MCG/KG/MIN 5. 963 mls/hr IV .[id number] [facility] Rx#:[id number] Norepinephrine 4 mg In 212.514 118.397 Sodium Chloride 0.9% 250 ml @ 0.02 MCG/KG/MIN 5. 979 mls/hr IV .Q24H [facility] Rx#:[id number] Vasopressin 20 unit In 86.828 47.277 Sodium Chloride 0.9% 50 ml @ 0.04 UNITS/MIN 6.12 mls/hr IV .Q8H20M [facility] Rx# :[id number] Oral 200 Albumin 250 Albumin Human 5% 250 ml 250 In Empty Bag 1 bag @ 250 mls/hr IVPB ONCE ONE Rx#: [id number] Output: Chest Tube Drainage 50 40 0 Left 0 0 0 Right 50 40 0 Urine 145 185 20 Other: Voiding Method Indwelling Catheter Indwelling Catheter Indwelling Catheter ABP, PAP, CO, CI - Last Documented Arterial Blood Pressure 83/58 Pulmonary Artery Pressure 38/15 Cardiac Output 3.8 Cardiac Index 2.1 - Exam patient is awake. No acute distress Examination of the heart S1 and S2 Examination of the lungs decreased breath sounds at the bases Abdomen is soft Examination of lower extremities shows no significant edema - Labs CBC & Chem 7: 09/07/23 05:08 09/07/23 05:08 Labs: Abnormal Lab Results - Last 24 Hours (Table) 09/06/23 09/06/23 09/06/23 Range/Units 12:11 14:03 16:09 RBC (4.30-5.90) m/uL Hgb (13.0-17.5) gm/dL Hct (39.0-53.0) % Plt Count (150-450) k/uL Lymphocytes # (1.0-4.8) k/uL Sodium (137-145) mmol/L Chloride (98-107) mmol/L Carbon Dioxide (22-30) mmol/L BUN (9-20) mg/dL Creatinine (0.66-1.25) mg/dL Glucose (74-99) mg/dL POC Glucose (mg/dL) 156 H 175 H 185 H (70-110) mg/dL Calcium (8.4-10.2) mg/dL Magnesium (1.6-2.3) mg/dL AST (17-59) U/L ALT (4-49) U/L Total Protein (6.3-8.2) g/dL Albumin (3.5-5.0) g/dL 09/06/23 09/06/23 09/06/23 Range/Units 18:02 20:00 22:00 RBC (4.30-5.90) m/uL Hgb (13.0-17.5) gm/dL Hct (39.0-53.0) % Plt Count (150-450) k/uL Lymphocytes # (1.0-4.8) k/uL Sodium (137-145) mmol/L Chloride (98-107) mmol/L Carbon Dioxide (22-30) mmol/L BUN (9-20) mg/dL Creatinine (0.66-1.25) mg/dL Glucose (74-99) mg/dL POC Glucose (mg/dL) 157 H 173 H 185 H (70-110) mg/dL Calcium (8.4-10.2) mg/dL Magnesium (1.6-2.3) mg/dL AST (17-59) U/L ALT (4-49) U/L Total Protein (6.3-8.2) g/dL Albumin (3.5-5.0) g/dL 09/06/23 09/07/23 09/07/23 Range/Units 23:58 02:00 03:51 RBC (4.30-5.90) m/uL Hgb (13.0-17.5) gm/dL Hct (39.0-53.0) % Plt Count (150-450) k/uL Lymphocytes # (1.0-4.8) k/uL Sodium (137-145) mmol/L Chloride (98-107) mmol/L Carbon Dioxide (22-30) mmol/L BUN (9-20) mg/dL Creatinine (0.66-1.25) mg/dL Glucose (74-99) mg/dL POC Glucose (mg/dL) 166 H 160 H 137 H (70-110) mg/dL Calcium (8.4-10.2) mg/dL Magnesium (1.6-2.3) mg/dL AST (17-59) U/L ALT (4-49) U/L Total Protein (6.3-8.2) g/dL Albumin (3.5-5.0) g/dL 09/07/23 09/07/23 09/07/23 Range/Units 05:08 05:08 06:01 RBC 2.68 L (4.30-5.90) m/uL Hgb 8.4 L (13.0-17.5) gm/dL Hct 25.5 L (39.0-53.0) % Plt Count 81 L (150-450) k/uL Lymphocytes # 0.6 L (1.0-4.8) k/uL Sodium 136 L (137-145) mmol/L Chloride 109 H (98-107) mmol/L Carbon Dioxide 16 L (22-30) mmol/L BUN 63 H (9-20) mg/dL Creatinine 3.54 H (0.66-1.25) mg/dL Glucose 119 H (74-99) mg/dL POC Glucose (mg/dL) 122 H (70-110) mg/dL Calcium 7.7 L (8.4-10.2) mg/dL Magnesium 2.9 H (1.6-2.3) mg/dL AST 348 H (17-59) U/L ALT 189 H (4-49) U/L Total Protein 5.5 L (6.3-8.2) g/dL Albumin 3.3 L (3.5-5.0) g/dL 09/07/23 Range/Units 06:58 RBC (4.30-5.90) m/uL Hgb (13.0-17.5) gm/dL Hct (39.0-53.0) % Plt Count (150-450) k/uL Lymphocytes # (1.0-4.8) k/uL Sodium (137-145) mmol/L Chloride (98-107) mmol/L Carbon Dioxide (22-30) mmol/L BUN (9-20) mg/dL Creatinine (0.66-1.25) mg/dL Glucose (74-99) mg/dL POC Glucose (mg/dL) 119 H (70-110) mg/dL Calcium (8.4-10.2) mg/dL Magnesium (1.6-2.3) mg/dL AST (17-59) U/L ALT (4-49) U/L Total Protein (6.3-8.2) g/dL Albumin (3.5-5.0) g/dL Assessment and Plan Assessment: 1. Acute kidney injury secondary to ATN secondary to hypotension/cardiogenic shock. Baseline creatinine near 1 and is up to 3.5 today. Oliguric. UA fairly benign. 2. Coronary artery disease status post CABG x 3 September 02, 2023. 3. Shock maintained on Levophed, vasopressin, dopamine and dobutamine. 4. Cardiomyopathy with reduced ejection fraction. 5. Metabolic acidosis secondary to acute kidney injury. 6. Cardiomyopathy with EF 20-25% Plan: IV Lasix 1 Continue oral sodium bicarb Patient will need renal replacement therapy if urine output does not improve. Check iron profile
[2023-09-07 11:51] LABS: Glucose,Whole Blood 101 mg/dL (70-110)
--- NOTE | 2023-09-07 12:39 | P.PN ---
Subjective Progress Note Date: 09/07/23 Principal diagnosis: POD #5 off-pump coronary artery bypass grafting surgery x 3, left internal thoracic artery (in-situ) sequential to diagonal and left anterior descending coronary artery, right greater saphenous vein from aorta to obtuse marginal artery 1 63-year-old male patient, was brought into the intensive care unit after having an antibiotic balloon pump inserted this morning and this was done in preparation for coronary artery bypass surgery. The patient is known to have CAD, chronic CHF with impaired ejection fraction of 30 to 35%. The patient has been hospitalized with [facility] and an earlier cardiac catheterization from April 2023 showed a 70% left main, 70% proximal LAD, 30% circumflex and 70% obtuse marginal 1 and 60% mid RCA. The patient has impaired LV function with an EF around 30 to 35% along with mild to moderate MR, and se berny pulm hypertension. The patient is scheduled to undergo coronary artery bypass surgery tomorrow. He is currently on room air oxygen. Free of any chest pain. Hemodynamically stable. Augmented blood pressure is around 80. He has some developmental delay and his other comorbid conditions include diabetes mellitus type 2, hypertension and hyperlipidemia. Blood work shows a white cell count of 9, hemoglobin 11.8, platelet count of 206, normal coagulation profile, BUN of 27 with a creatinine of 1 and sodium levels at 138. LFTs are normal. His CAT scan of the chest that was done on 07/16/2023 showed cardiomegaly with small right and left-sided pleural effusion. This is consistent with CHF. No mediastinal lymphadenopathy. The patient is seen today September 02, 2023 in follow-up in the intensive care unit following surgery. He had undergone an on pump coronary artery bypass grafting x 3 with a left internal thoracic artery sequential to diagonal and the LAD. Right SVG from the aorta to the obtuse marginal #1. Left atrial appendage ligation and clipping. He remains intubated on the mechanical ventilator and assist-control mode at a rate of 14, tidal volume 500, FiO2 40% and a PEEP of 10. He remains on propofol at 20 mcg/kg/min. Lactated Ringer's at 50 MLS per hour. He is requiring vasopressin at 0.04 units/min. Insulin drip at 1 unit/h. Norepinephrine at 0.05 mcg/kg/min. Milrinone at 0.25 mcg/kg/min intra-aortic balloon pump remains in place. Mediastinal and right and left split chest tubes remain in place. Cardiac output is 4.7. Cardiac index 2.6. Received albumin. Receiving cefazolin. Heparin for DVT prophylaxis. White count 11.7. Hemoglobin 11.5. Platelets 84,000. INR 1.4. Sodium 141. Potassium 3.7. Bicarb 22. BUN 22. Creatinine 0.88. Glucose 101. X-ray no overt failure, pneumothorax or sizable consolidation. ABG's are pending. Patient was today on 09/03/2023, patient was extubated last night uneventfully, patient is now on 2 L nasal cannula, his intra-aortic balloon has been removed today patient remains on pressors and on inotropes. Still requiring norepinephrine at 0.02 mcg/kg/min still on milrinone 0.25 mcg/kg/min and on 0.04 units/min of vasopressin. Cardiac output today is 6.5 cardiac index is 3.7 PA pressure 41/17 CVP of 15. Continues to have mediastinal left and right-sided pleural chest tubes in place, had about 780 mL output since surgery. Chest x- ray is showing mostly postoperative changes labs were all reviewed. WBC count is 15.2 hemoglobin 9.2. Basic metabolic profile is normal, creatinine 1.10 up from 0.88 yesterday Reevaluated today on 09/04/2023, patient remains in the ICU on 3 L nasal cannula, insulin drip at 1.5 units/h still receiving norepinephrine at 0.08 mcg/kg/min milrinone 0.1 mcg/kg/min vasopressin at 0.03 units/min. Cardiac output is 5.0 cardiac index 2.8, patient remains marginal at best, he is sitting at the bedside chair, does not seem to be in distress, on 3 L nasal cannula. Chest x- ray showed no evidence of pulmonary edema no evidence of pneumonia he does have a small tiny apical left pneumothorax. WBC count is 17.7 hemoglobin 9.4. Basic metabolic profile is normal however his BUN is 34 creatinine is 1.52, apparently the patient does have sustained some acute kidney injury most likely related to hypotension/acute tubular necrosis. Patient was reevaluated today on 09/05/2023, remains in the ICU, still requiring multiple drips, he is on dopamine at 2.5 mcg/kg/min norepinephrine at 0.03 mcg/kg/min vasopressin 0.03 units/min patient is also on insulin at 1.5 units/h. Cardiac index remains low at 1.9 cardiac output is relatively low at 3.4. Pulmonary artery pressure 44/18, CVP is 12. Patient does not seem to be very much motivated, he is achieving less than 500 cc on incentive spirometry. The last patient is on 2 L nasal cannula, refusing to participate in physical activity, refusing incentive spirometry, chest tubes, remain in place, prognosis remains guarded. Chest x-ray showed mostly bibasilar atelectasis, mild interstitial prominence, I doubt left-sided pneumothorax as documented by radiology Reevaluate today on 09/06/2023, patient is basically about the same. Patient is in the ICU, he is on multiple drips including higher dose of inotrope, milrinone 0.25 he is on norepinephrine at 0.02 mcg/kg/min vasopressin at 0.03 units/min dopamine at 2.5 mcg/kg/min dobutamine at 2.5 mcg/kg/min insulin at 2.5 units an hour, urine output is low, patient received albumin cardiac index is 2.9 today cardiac output is 5.9. His renal functioning is getting a bit worse, patient apparently the patient is developing what seems to be a cardiorenal syndrome. Chest x-ray is showing atelectasis and bibasilar pleural effusions. Patient is not motivated, does not seem to be interested in getting motivated. And been doing poorly with incentive spirometry Reevaluate today on 09/06, patient is basically about the same, he is now postoperative day #5, sitting at the bedside chair, patient is not motivated what bit remains on multiple inotropes and pressors, patient is receiving dopamine at 2.5 mcg/kg/min dobutamine at 5 mcg/kg/min norepinephrine at 0.06 mcg/kg/min vasopressin at 0.03 units/min and he is also on insulin at 3.5 units/h today he is off milrinone. Cardiac output is 3.8 cardiac index is 2.1 PA pressure 43/15 CVP is 13. Chest x-ray showed mostly atelectasis at the bases. No clear-cut evidence of pulmonary edema. Patient is maintained on 2 L nasal cannula, again the patient is doing extremely poorly with incentive spirometry and does not seem to be motivated at all. Renal functioning seems to be getting worse, his BUN is 63 creatinine 3.54, at this rate I am quite concerned with the patient may end up requiring hemodialysis. This is being addressed by nephrology on the case. Liver enzymes are improving Objective - Vital Signs Vital signs: Vital Signs Temp 98.4 F 09/07/23 12:00 Pulse 78 09/07/23 12:15 Resp 16 09/07/23 12:15 BP 106/61 09/07/23 12:15 Pulse Ox 100 09/07/23 12:15 FiO2 40 09/02/23 20:33 Intake & Output 09/06/23 09/07/23 09/07/23 18:59 06:59 18:59 Intake Total 1101.520 837.465 416 Output Total 195 225 60 Balance 906.520 612.465 356 Intake: IV 408 396 216 Albumin Human 5% 250 ml 40 In Empty Bag 1 bag @ 250 mls/hr IVPB ONCE ONE Rx#: [id number] Lactated Ringers 1,000 ml 200 220 120 @ 20 mls/hr IV .Q24H [facility] Rx#:[id number] NS cardiac output 90 110 60 pressure bags 78 66 36 Intake, IV Titration 443.520 441.465 Amount DOBUTamine DRIP 500 mg In 234.525 Dextrose/Water 1 250ml. bag @ 5 MCG/KG/MIN 11.925 mls/hr IV .[id number] [facility] Rx#:[id number] Insulin Regular 100 unit 62.882 41.266 In Sodium Chloride 0.9% 100 ml @ Per Protocol IV .Q0M [facility] Rx#:[id number] Milrinone-D5w Pmx 20 mg 81.296 In Dextrose/Water 1 100ml .bag @ 0.25 MCG/KG/MIN 5. 963 mls/hr IV .[id number] [facility] Rx#:[id number] Norepinephrine 4 mg In 212.514 118.397 Sodium Chloride 0.9% 250 ml @ 0.02 MCG/KG/MIN 5. 979 mls/hr IV .Q24H [facility] Rx#:[id number] Vasopressin 20 unit In 86.828 47.277 Sodium Chloride 0.9% 50 ml @ 0.04 UNITS/MIN 6.12 mls/hr IV .Q8H20M [facility] Rx# :[id number] Oral 200 Albumin 250 Albumin Human 5% 250 ml 250 In Empty Bag 1 bag @ 250 mls/hr IVPB ONCE ONE Rx#: [id number] Output: Chest Tube Drainage 50 40 0 Left 0 0 0 Right 50 40 0 Urine 145 185 60 Other: Voiding Method Indwelling Catheter Indwelling Catheter Indwelling Catheter ABP, PAP, CO, CI - Last Documented Arterial Blood Pressure 83/58 Pulmonary Artery Pressure 43/14 Cardiac Output 3.8 Cardiac Index 2.1 - Exam GENERAL EXAM: Reveals 63-year-old white male on 2 L nasal cannula, not in distress HEAD: Normocephalic. EYES: PERRLA, EOMI. NOSE: Clear with pink turbinates. THROAT: No erythema or exudates. NECK: No masses, no JVD. Left IJ [place]-Isabell catheter in place. CHEST: Sternal dressing dry and intact. Heart hugger in place. LUNGS: Diminished breath sound bilaterally no rhonchi no wheezes CVS: S1 and S2 normal with no audible murmur, regular rhythm. ABDOMEN: No hepatosplenomegaly, diminished bowel sounds, no guarding or rigidity. SKIN: No rashes CENTRAL NERVOUS SYSTEM: Alert and oriented x 3 no gross focal deficits EXTREMITIES: no clubbing edema or cyanosis - Labs CBC & Chem 7: 09/07/23 05:08 09/07/23 05:08 Labs: Abnormal Lab Results - Last 24 Hours (Table) 09/06/23 09/06/23 09/06/23 Range/Units 14:03 16:09 18:02 RBC (4.30-5.90) m/uL Hgb (13.0-17.5) gm/dL Hct (39.0-53.0) % Plt Count (150-450) k/uL Lymphocytes # (1.0-4.8) k/uL Sodium (137-145) mmol/L Chloride (98-107) mmol/L Carbon Dioxide (22-30) mmol/L BUN (9-20) mg/dL Creatinine (0.66-1.25) mg/dL Glucose (74-99) mg/dL POC Glucose (mg/dL) 175 H 185 H 157 H (70-110) mg/dL Calcium (8.4-10.2) mg/dL Magnesium (1.6-2.3) mg/dL AST (17-59) U/L ALT (4-49) U/L Total Protein (6.3-8.2) g/dL Albumin (3.5-5.0) g/dL 09/06/23 09/06/23 09/06/23 Range/Units 20:00 22:00 23:58 RBC (4.30-5.90) m/uL Hgb (13.0-17.5) gm/dL Hct (39.0-53.0) % Plt Count (150-450) k/uL Lymphocytes # (1.0-4.8) k/uL Sodium (137-145) mmol/L Chloride (98-107) mmol/L Carbon Dioxide (22-30) mmol/L BUN (9-20) mg/dL Creatinine (0.66-1.25) mg/dL Glucose (74-99) mg/dL POC Glucose (mg/dL) 173 H 185 H 166 H (70-110) mg/dL Calcium (8.4-10.2) mg/dL Magnesium (1.6-2.3) mg/dL AST (17-59) U/L ALT (4-49) U/L Total Protein (6.3-8.2) g/dL Albumin (3.5-5.0) g/dL 09/07/23 09/07/23 09/07/23 Range/Units 02:00 03:51 05:08 RBC 2.68 L (4.30-5.90) m/uL Hgb 8.4 L (13.0-17.5) gm/dL Hct 25.5 L (39.0-53.0) % Plt Count 81 L (150-450) k/uL Lymphocytes # 0.6 L (1.0-4.8) k/uL Sodium (137-145) mmol/L Chloride (98-107) mmol/L Carbon Dioxide (22-30) mmol/L BUN (9-20) mg/dL Creatinine (0.66-1.25) mg/dL Glucose (74-99) mg/dL POC Glucose (mg/dL) 160 H 137 H (70-110) mg/dL Calcium (8.4-10.2) mg/dL Magnesium (1.6-2.3) mg/dL AST (17-59) U/L ALT (4-49) U/L Total Protein (6.3-8.2) g/dL Albumin (3.5-5.0) g/dL 09/07/23 09/07/23 09/07/23 Range/Units 05:08 06:01 06:58 RBC (4.30-5.90) m/uL Hgb (13.0-17.5) gm/dL Hct (39.0-53.0) % Plt Count (150-450) k/uL Lymphocytes # (1.0-4.8) k/uL Sodium 136 L (137-145) mmol/L Chloride 109 H (98-107) mmol/L Carbon Dioxide 16 L (22-30) mmol/L BUN 63 H (9-20) mg/dL Creatinine 3.54 H (0.66-1.25) mg/dL Glucose 119 H (74-99) mg/dL POC Glucose (mg/dL) 122 H 119 H (70-110) mg/dL Calcium 7.7 L (8.4-10.2) mg/dL Magnesium 2.9 H (1.6-2.3) mg/dL AST 348 H (17-59) U/L ALT 189 H (4-49) U/L Total Protein 5.5 L (6.3-8.2) g/dL Albumin 3.3 L (3.5-5.0) g/dL Assessment and Plan Assessment: Impression: Symptomatic multivessel coronary artery disease, Status post on pump coronary artery bypass grafting x 3. Left internal thoracic artery sequential to diagonal and LAD. Right SVG from aorta to obtuse marginal artery #1. Postoperative day #5 Chronic systolic heart failure with impaired ejection fraction of 30 to 35% patient is still requiring significant amount of inotropes and pressors Peripheral vascular disease Diabetes mellitus type 2 with an HbA1c of 10.9 Hypertension Hyperlipidemia History of developmental delay Bipolar disorder Chronic anxiety History of smoking quit more than 20 years ago Left apical pneumothorax, expected Acute kidney injury, suspect ATN, suspect cardiorenal syndrome. Seems to be getting worse, may end up requiring hemodialysis/replacement therapy Commendation: Continue pressors and inotropes continue to monitor cardiac index and cardiac output Continue dopamine, continue dobutamine, patient is off milrinone today. However he is still requiring norepinephrine and vasopressin Continue Plavix beta-blockers aspirin and statin Titrate pressors and inotropes as tolerated Continue pain control management Daily x-rays of the chest Daily labs Incentive spirometry Ambulation Patient remains unmotivated Prognosis is guarded Will continue to follow Time with Patient: Less than 30
--- NOTE | 2023-09-07 13:48 | XR ---
EXAMINATION TYPE: XR chest 1V portable DATE OF EXAM: 09/07/2023 COMPARISON: 09/06/2023 INDICATION: Postcardiac surgery TECHNIQUE: Single frontal view of the chest is obtained. FINDINGS: The heart size is upper limits for normal. The pulmonary vasculature is normal. Bibasilar infiltrates are present greater on the right. A small right pleural effusion may be present . Multiple EKG leads overlie the chest. [place]-Isabell catheter is present with the tip in the main pulmon bridgett artery region. Sternotomy wires are in the midline IMPRESSION: 1. Bibasilar infiltrates greater on the right. 2. Small right pleural effusion developing. 3. [place]illa-Isabell catheter present.
[2023-09-07 14:25] LABS: Glucose,Whole Blood 121 mg/dL (70-110)
--- NOTE | 2023-09-07 16:04 | P.PN ---
Subjective Progress Note Date: 09/07/23 63-year-old gentleman with past medical history significant for coronary artery disease, chronic congestive heart failure with ejection fraction of 30%, hypertension hyperlipidemia diabetes mellitus obesity bipolar disorder cardiomyopathy developmental delay history of nicotine dependence who has been admitted with shortness of breath and lower extremity edema. Patient underwent cardiac catheterization right heart catheterization and intra-aortic balloon pump. * Patient has comorbidities including diabetes mellitus type 2, peripheral arterial disease, bipolar disorder, history of anxiety. * Patient to undergo myocardial revascularization 09/02/2023. * 09/03/23 : Patient admitted to medical ICU. Patient was successfully extubated postprocedure. S/p intra-aortic balloon pump which remains in place through right femoral access. Patient remains on norepinephrine drip, Primacor drip, vasopressin. Bilateral chest tubes remained in place. Followed up by medical ICU and cardiac surgery. Follow-up blood work obtained including WBC 15.2 hemoglobin 9.2 platelet count of 98, serum chemistry sodium 141 potassium 4.7 carbon dioxide 24 BUN 26 creatinine 1.1 blood glucose 118-1 33 * 09/04/23: Patient seen and evaluated in medical ICU room 266, patient continues to remain on Levophed, vasopressin and pressor support. Blood work reviewed WBC 17.7 hemoglobin 9.4 platelet 117. Serum chemistry showed sodium 137 potassium 4.9 carbon dioxide 18 BUN 34 creatinine 1.52 blood glucose 123. Overnight patient was refusing to participate with care, patient counseled by cardiac surgery team as well. Brother at bedside, patient does follow commands, care plan discussed with nursing staff * 09/05/23: Patient seen and evaluated bedside, vitals reviewed blood pressure running in the 90s overnight. Patient remains on 2 L of oxygen. Blood work reviewed CBC shows WBC 14.3 hemoglobin 9.3 platelet 105 serum chemistry sodium 137 potassium 5.2 carbon dioxide 16 BUN 44 creatinine 1.99 total bilirubin 1.3 AST 464 ALT 128 will need to be monitored, p.atient remains lethargic however easily arousable 09/06/2023 -- Patient is seen and evaluated in ICU at bedside Vital signs reviewed and temperature of 97.9, pulse 90, respiration 14 and blood pressure of 110/40 Lab review shows WBC 14.2, hemoglobin of 8.7 and platelet count of 109, sodium 136, potassium 4.8, BUNs/creatinine of 54/2.91; concern about worsening renal function likely related to cardiorenal syndrome; dopamine has been discontinued Chest x-ray reveals atelectasis and bibasilar pleural effusion --Patient remains on pressors and inotropic agents; cardiac index and cardiac output is being monitored closely -Patient remains on Plavix, aspirin, statins and beta-blockers -- Recommended to increase activity 09/06 ---patient is basically about the same, he is now postoperative day #5, sitting at the bedside chair, patient is not motivated what bit remains on multiple inotropes and pressors, patient is receiving dopamine at 2.5 mcg/kg/min dobutamine at 5 mcg/kg/min norepinephrine at 0.06 mcg/kg/min vasopressin at 0.03 units/min and he is also on insulin at 3.5 units/h today he is off milrinone. Chest x-ray showed mostly atelectasis at the bases. No clear-cut evidence of pulmonary edema. Patient is maintained on 2 L nasal cannula, again the patient is doing extremely poorly with incentive spirometry and does not seem to be motivated at all. Renal functioning seems to be getting worse, his BUN is 63 creatinine 3.54, at this rate I am quite concerned with the patient may end up requiring hemodialysis. This is being addressed by nephrology on the case. Liver enzymes are improving Continue pressors and inotropes continue to monitor cardiac index and cardiac output Continue dopamine, continue dobutamine, patient is off milrinone today. However he is still requiring norepinephrine and vasopressin Continue Plavix beta-blockers aspirin and statin Titrate pressors and inotropes as tolerated Objective - Vital Signs Vital signs: Vital Signs Temp 36.9 F L 09/07/23 08:00 Pulse 82 09/07/23 08:00 Resp 18 09/07/23 08:00 BP 102/56 09/07/23 08:00 Pulse Ox 98 09/07/23 08:00 FiO2 40 09/02/23 20:33 Intake & Output 09/06/23 09/07/23 09/07/23 18:59 06:59 18:59 Intake Total 1101.520 837.465 338 Output Total 195 225 20 Balance 906.520 612.465 318 Intake: IV 408 396 138 Albumin Human 5% 250 ml 40 In Empty Bag 1 bag @ 250 mls/hr IVPB ONCE ONE Rx#: [id number] Lactated Ringers 1,000 ml 200 220 60 @ 20 mls/hr IV .Q24H [facility] Rx#:[id number] NS cardiac output 90 110 60 pressure bags 78 66 18 Intake, IV Titration 443.520 441.465 Amount DOBUTamine DRIP 500 mg In 234.525 Dextrose/Water 1 250ml. bag @ 5 MCG/KG/MIN 11.925 mls/hr IV .[id number] [facility] Rx#:[id number] Insulin Regular 100 unit 62.882 41.266 In Sodium Chloride 0.9% 100 ml @ Per Protocol IV .Q0M [facility] Rx#:[id number] Milrinone-D5w Pmx 20 mg 81.296 In Dextrose/Water 1 100ml .bag @ 0.25 MCG/KG/MIN 5. 963 mls/hr IV .[id number] [facility] Rx#:[id number] Norepinephrine 4 mg In 212.514 118.397 Sodium Chloride 0.9% 250 ml @ 0.02 MCG/KG/MIN 5. 979 mls/hr IV .Q24H [facility] Rx#:[id number] Vasopressin 20 unit In 86.828 47.277 Sodium Chloride 0.9% 50 ml @ 0.04 UNITS/MIN 6.12 mls/hr IV .Q8H20M [facility] Rx# :[id number] Oral 200 Albumin 250 Albumin Human 5% 250 ml 250 In Empty Bag 1 bag @ 250 mls/hr IVPB ONCE ONE Rx#: [id number] Output: Chest Tube Drainage 50 40 0 Left 0 0 0 Right 50 40 0 Urine 145 185 20 Other: Voiding Method Indwelling Catheter Indwelling Catheter Indwelling Catheter ABP, PAP, CO, CI - Last Documented Arterial Blood Pressure 83/58 Pulmonary Artery Pressure 41/13 Cardiac Output 3.8 Cardiac Index 2.1 - Exam GENERAL: The patient is alert and oriented x3, ill appearance, nasal cannula in place HEENT: Pupils are round and equally reacting to light. EOMI. CARDIOVASCULAR: S1 and S2 present. Chest brace in place PULMONARY: Decreased breath sounds bilaterally, chest tube in place, [place] catheter in place ABDOMEN: Soft, nontender, nondistended, normoactive bowel sounds. No palpable organomegaly. MUSCULOSKELETAL: No joint swelling or deformity. EXTREMITIES: Lower extremity edema noted. NEUROLOGICAL: Exam limited secondary to lethargy SKIN: No rashes - Labs CBC & Chem 7: 09/07/23 05:08 09/07/23 05:08 Labs: Abnormal Lab Results - Last 24 Hours (Table) 09/06/23 09/06/23 09/06/23 Range/Units 10:11 12:11 14:03 RBC (4.30-5.90) m/uL Hgb (13.0-17.5) gm/dL Hct (39.0-53.0) % Plt Count (150-450) k/uL Lymphocytes # (1.0-4.8) k/uL Sodium (137-145) mmol/L Chloride (98-107) mmol/L Carbon Dioxide (22-30) mmol/L BUN (9-20) mg/dL Creatinine (0.66-1.25) mg/dL Glucose (74-99) mg/dL POC Glucose (mg/dL) 138 H 156 H 175 H (70-110) mg/dL Calcium (8.4-10.2) mg/dL Magnesium (1.6-2.3) mg/dL AST (17-59) U/L ALT (4-49) U/L Total Protein (6.3-8.2) g/dL Albumin (3.5-5.0) g/dL 09/06/23 09/06/23 09/06/23 Range/Units 16:09 18:02 20:00 RBC (4.30-5.90) m/uL Hgb (13.0-17.5) gm/dL Hct (39.0-53.0) % Plt Count (150-450) k/uL Lymphocytes # (1.0-4.8) k/uL Sodium (137-145) mmol/L Chloride (98-107) mmol/L Carbon Dioxide (22-30) mmol/L BUN (9-20) mg/dL Creatinine (0.66-1.25) mg/dL Glucose (74-99) mg/dL POC Glucose (mg/dL) 185 H 157 H 173 H (70-110) mg/dL Calcium (8.4-10.2) mg/dL Magnesium (1.6-2.3) mg/dL AST (17-59) U/L ALT (4-49) U/L Total Protein (6.3-8.2) g/dL Albumin (3.5-5.0) g/dL 09/06/23 09/06/23 09/07/23 Range/Units 22:00 23:58 02:00 RBC (4.30-5.90) m/uL Hgb (13.0-17.5) gm/dL Hct (39.0-53.0) % Plt Count (150-450) k/uL Lymphocytes # (1.0-4.8) k/uL Sodium (137-145) mmol/L Chloride (98-107) mmol/L Carbon Dioxide (22-30) mmol/L BUN (9-20) mg/dL Creatinine (0.66-1.25) mg/dL Glucose (74-99) mg/dL POC Glucose (mg/dL) 185 H 166 H 160 H (70-110) mg/dL Calcium (8.4-10.2) mg/dL Magnesium (1.6-2.3) mg/dL AST (17-59) U/L ALT (4-49) U/L Total Protein (6.3-8.2) g/dL Albumin (3.5-5.0) g/dL 09/07/23 09/07/23 09/07/23 Range/Units 03:51 05:08 05:08 RBC 2.68 L (4.30-5.90) m/uL Hgb 8.4 L (13.0-17.5) gm/dL Hct 25.5 L (39.0-53.0) % Plt Count 81 L (150-450) k/uL Lymphocytes # 0.6 L (1.0-4.8) k/uL Sodium 136 L (137-145) mmol/L Chloride 109 H (98-107) mmol/L Carbon Dioxide 16 L (22-30) mmol/L BUN 63 H (9-20) mg/dL Creatinine 3.54 H (0.66-1.25) mg/dL Glucose 119 H (74-99) mg/dL POC Glucose (mg/dL) 137 H (70-110) mg/dL Calcium 7.7 L (8.4-10.2) mg/dL Magnesium 2.9 H (1.6-2.3) mg/dL AST 348 H (17-59) U/L ALT 189 H (4-49) U/L Total Protein 5.5 L (6.3-8.2) g/dL Albumin 3.3 L (3.5-5.0) g/dL 09/07/23 09/07/23 Range/Units 06:01 06:58 RBC (4.30-5.90) m/uL Hgb (13.0-17.5) gm/dL Hct (39.0-53.0) % Plt Count (150-450) k/uL Lymphocytes # (1.0-4.8) k/uL Sodium (137-145) mmol/L Chloride (98-107) mmol/L Carbon Dioxide (22-30) mmol/L BUN (9-20) mg/dL Creatinine (0.66-1.25) mg/dL Glucose (74-99) mg/dL POC Glucose (mg/dL) 122 H 119 H (70-110) mg/dL Calcium (8.4-10.2) mg/dL Magnesium (1.6-2.3) mg/dL AST (17-59) U/L ALT (4-49) U/L Total Protein (6.3-8.2) g/dL Albumin (3.5-5.0) g/dL
[2023-09-07 16:52] LABS: Glucose,Whole Blood 141 mg/dL (70-110)
[2023-09-07] MEDS: BUMETANIDE 0.25 MG/ML 10 ML VIAL IV SCH (16:58)
[2023-09-07 18:03] LABS: Glucose,Whole Blood 161 mg/dL (70-110)
[2023-09-07 19:42] LABS: Glucose,Whole Blood 186 mg/dL (70-110)
--- NOTE | 2023-09-07 20:42 | P.CRDCN ---
History of Present Illness Consult date: 09/07/23 History of present illness: SUBJECTIVE: Patient is s/p off-pump CABG x 3, September 07, 2023 Patient's creatinine has been trending up. His urine output has been low he is stated oliguric. He got IV Lasix 60 mg with minimal response. [place]-Isabell catheter shows PA systolic 50 mmHg, PA diastolic 10 mmHg, CVP 12 to 18 mmHg on average. Patient appears volume overloaded. He is on 5 mcg dobutamine drip Systolic blood pressure 110, diastolic 60s to 70s mmHg PHYSICAL EXAMINATION S1-S2 audible, no audible murmur, regular pulse 1+ pitting edema in bilateral lower extremity Left IJ [place]-Isabell catheter in place alert oriented Diminished breath sounds, mild crackles audible, on 2 L oxygen ASSESSMENT Status post three-vessel CABG LEONARDO with oliguric ATN, kidney function worsening over last 3 days Ischemic cardiomyopathy EF 30 to 35% Type 2 diabetes Hypertension COPD PLAN Give him a trial of Bumex 3 mg IV push once. As patient's CVP and PA pressures are high, urine output is low and blood pressure is reasonable. Monitor renal function and urine output closely. Maintain patient on dobutamine drip Monitor CVP and PA pressures Continue other cardiac medications Will closely follow Aravind Vega MD, FACC, RPVI Thank you for allowing [facility] to participate in this patient's care. Please contact us in case of any followup questions. Past Medical History Past Medical History: Coronary Artery Disease (CAD), Heart Failure, Diabetes Mellitus, Hyperlipidemia, Hypertension Additional Past Medical History / Comment(s): chronic systolic heart failure,cardiomyapathy,rush cataracts History of Any Multi-Drug Resistant Organisms: None Reported Past Surgical History: Heart Catheterization Additional Past Surgical History / Comment(s): Previous foot and wrist surgery Past Anesthesia/Blood Transfusion Reactions: No Reported Reaction Additional Past Anesthesia/Blood Transfusion Reaction / Comment(s): no known hx blood transfusion Smoking Status: Former smoker - Past Family History Mother Family Medical History: COPD, Pneumonia Brother(s) Family Medical History: COPD Medications and Allergies Home Medications Medication Instructions Recorded Confirmed Type DULoxetine HCL [Cymbalta] 60 mg PO DAILY 08/28/23 08/28/23 History Empagliflozin [Jardiance] 10 mg PO DAILY 08/28/23 08/28/23 History Furosemide [Lasix] 40 mg PO BID 08/28/23 08/28/23 History Glimepiride [Amaryl] 2 mg PO DAILY 08/28/23 08/28/23 History Losartan [Cozaar] 25 mg PO DAILY 08/28/23 08/28/23 History Metoprolol Succinate (ER) [Toprol 50 mg PO DAILY 08/28/23 08/28/23 History Xl] Rosuvastatin Calcium [Crestor] 40 mg PO DAILY 08/28/23 08/28/23 History Spironolactone [Aldactone] 12.5 mg PO DAILY 08/28/23 08/28/23 History busPIRone HCL 15 mg PO BID 08/28/23 08/28/23 History Allergies Allergy/AdvReac Type Severity Reaction Status Date / Time ibuprofen Allergy Unknown Verified 08/28/23 10:06 Physical Exam Vitals: Vital Signs Temp Pulse Resp BP Pulse Ox 09/07/23 20:30 85 14 101/55 95 09/07/23 20:15 83 14 104/54 96 09/07/23 20:00 82 16 102/59 96 09/07/23 19:45 80 14 112/65 95 09/07/23 19:00 80 29 H 107/50 97 09/07/23 18:45 80 23 106/55 96 09/07/23 18:30 80 27 H 111/50 97 09/07/23 18:15 80 22 107/55 97 09/07/23 18:00 80 25 H 105/48 97 09/07/23 17:45 79 27 H 104/49 97 09/07/23 17:30 77 21 102/58 98 09/07/23 17:15 79 21 106/49 98 09/07/23 17:00 79 21 116/55 99 09/07/23 16:45 80 20 111/55 98 09/07/23 16:30 80 21 105/53 98 09/07/23 16:15 80 20 104/58 98 09/07/23 16:00 37.1 F L 79 22 107/54 98 09/07/23 15:45 80 20 108/51 99 09/07/23 15:30 79 20 106/51 100 09/07/23 15:15 79 23 103/52 99 09/07/23 15:00 79 22 102/53 99 09/07/23 14:45 75 18 106/53 100 09/07/23 14:30 76 21 115/54 99 09/07/23 14:15 76 21 109/65 99 09/07/23 14:00 79 12 117/60 99 09/07/23 13:45 80 19 110/58 99 09/07/23 13:30 80 0 L 108/57 100 09/07/23 13:15 79 21 92/52 99 09/07/23 13:00 76 6 L 114/55 99 09/07/23 12:45 78 20 109/56 99 09/07/23 12:30 78 6 L 103/58 99 09/07/23 12:15 78 16 106/61 100 09/07/23 12:00 98.4 F 78 14 104/60 100 09/07/23 11:45 77 10 L 104/56 99 09/07/23 11:30 77 14 103/53 100 09/07/23 11:15 77 19 102/53 100 09/07/23 11:00 77 13 104/56 100 09/07/23 10:45 78 15 114/58 99 09/07/23 10:30 80 20 114/58 100 09/07/23 10:15 81 15 111/60 99 09/07/23 10:00 80 17 109/56 100 09/07/23 09:45 82 18 110/56 99 09/07/23 09:30 82 18 108/57 99 09/07/23 09:15 82 16 107/56 99 09/07/23 09:00 82 18 106/57 98 09/07/23 08:45 82 14 102/53 98 09/07/23 08:30 82 17 105/56 99 09/07/23 08:15 82 18 104/55 09/07/23 08:00 36.9 F L 82 18 102/56 98 09/07/23 07:45 82 16 104/53 98 09/07/23 07:30 82 19 107/60 98 09/07/23 07:15 81 14 96/54 99 09/07/23 07:00 82 14 109/55 99 09/07/23 06:45 83 14 106/58 99 09/07/23 06:30 84 14 105/52 99 09/07/23 06:15 84 15 106/55 99 09/07/23 06:00 84 14 106/53 98 09/07/23 05:45 84 14 102/52 98 09/07/23 05:30 84 14 102/51 99 09/07/23 05:15 84 17 103/55 99 09/07/23 05:00 83 15 103/50 99 09/07/23 04:30 84 15 104/52 99 09/07/23 04:15 84 17 105/60 99 09/07/23 04:00 84 16 102/58 98 09/07/23 03:45 82 15 108/55 99 09/07/23 03:30 84 18 102/57 98 09/07/23 03:15 84 14 101/58 99 09/07/23 03:00 82 16 101/53 99 09/07/23 02:45 83 14 103/58 99 09/07/23 02:30 82 0 L 111/56 99 09/07/23 02:15 82 14 105/56 98 09/07/23 02:00 83 17 108/55 99 09/07/23 01:45 81 14 100/54 98 09/07/23 01:30 82 15 107/53 99 09/07/23 01:15 82 14 104/54 99 09/07/23 01:00 82 3 L 101/50 98 09/07/23 00:45 82 2 L 100/52 98 09/07/23 00:30 80 12 100/53 99 09/07/23 00:15 81 15 101/59 99 09/07/23 00:00 80 16 98/53 99 09/06/23 23:45 82 11 L 94/51 99 09/06/23 23:30 80 16 95/47 99 09/06/23 23:15 79 14 94/53 99 09/06/23 23:00 80 12 93/49 99 09/06/23 22:45 80 14 92/51 100 09/06/23 22:30 77 14 92/48 100 09/06/23 22:15 79 15 93/49 100 09/06/23 22:00 80 13 91/50 100 09/06/23 21:45 80 14 92/48 100 09/06/23 21:30 81 20 93/41 09/06/23 21:15 81 17 80/50 100 09/06/23 21:00 86 12 99/47 99 09/06/23 20:45 85 17 104/58 99 Intake and Output 09/07/23 09/07/23 09/07/23 06:59 14:59 22:59 Intake Total 727.311 733.463 561.905 Output Total 160 85 110 Balance 567.311 648.463 451.905 Intake: IV 298 298 160 Lactated Ringers 1,000 ml 160 160 100 @ 20 mls/hr IV .Q24H ZAID Rx#:[id number] NS cardiac output 90 90 30 pressure bags 48 48 30 Intake, IV Titration 429.311 235.463 151.905 Amount DOBUTamine DRIP 500 mg In 234.525 Dextrose/Water 1 250ml. bag @ 5 MCG/KG/MIN 11.925 mls/hr IV .[id number] ZAID Rx#:[id number] Insulin Regular 100 unit 29.112 21.092 23.903 In Sodium Chloride 0.9% 100 ml @ Per Protocol IV .Q0M ZAID Rx#:[id number] Norepinephrine 4 mg In 118.397 214.371 77.002 Sodium Chloride 0.9% 250 ml @ 0.02 MCG/KG/MIN 5. 979 mls/hr IV .Q24H ZAID Rx#:[id number] Vasopressin 20 unit In 47.277 51 Sodium Chloride 0.9% 50 ml @ 0.04 UNITS/MIN 6.12 mls/hr IV .Q8H20M ZAID Rx# :[id number] Oral 200 250 Output: Chest Tube Drainage 40 0 Left 0 0 Right 40 0 Urine 120 85 110 Other: Voiding Method Indwelling Catheter Indwelling Catheter Indwelling Catheter ABP, PAP, CO, CI - Last 8 Hours Pulmonary Artery Pressure 45/19 Pulmonary Artery Pressure 43/20 Pulmonary Artery Pressure 50/17 Pulmonary Artery Pressure 43/18 Pulmonary Artery Pressure 47/16 Pulmonary Artery Pressure 45/15 Pulmonary Artery Pressure 43/16 Pulmonary Artery Pressure 48/19 Pulmonary Artery Pressure 47/21 Pulmonary Artery Pressure 46/20 Pulmonary Artery Pressure 48/20 Pulmonary Artery Pressure 50/20 Pulmonary Artery Pressure 46/21 Pulmonary Artery Pressure 51/20 Pulmonary Artery Pressure 51/20 Pulmonary Artery Pressure 49/20 Pulmonary Artery Pressure 51/20 Pulmonary Artery Pressure 51/20 Pulmonary Artery Pressure 52/20 Pulmonary Artery Pressure 48/20 Pulmonary Artery Pressure 47/20 Pulmonary Artery Pressure 50/20 Pulmonary Artery Pressure 50/21 Pulmonary Artery Pressure 42/15 Pulmonary Artery Pressure 44/12 Pulmonary Artery Pressure 46/15 Pulmonary Artery Pressure 46/18 Pulmonary Artery Pressure 42/13 Pulmonary Artery Pressure 39/12 Pulmonary Artery Pressure 43/13 Cardiac Output 4.9 Cardiac Output 4.4 Cardiac Output 4.4 Cardiac Output 4.4 Cardiac Output 4.4 Cardiac Output 4.4 Cardiac Output 4.4 Cardiac Output 4.4 Cardiac Output 4.4 Cardiac Output 4.4 Cardiac Output 4.4 Cardiac Output 4.4 Cardiac Output 4.4 Cardiac Output 4.4 Cardiac Output 3.9 Cardiac Output 3.9 Cardiac Output 3.9 Cardiac Output 3.9 Cardiac Output 3.9 Cardiac Output 3.9 Cardiac Output 3.9 Cardiac Output 3.9 Cardiac Output 3.9 Cardiac Output 3.9 Cardiac Output 3.9 Cardiac Output 3.9 Cardiac Output 3.9 Cardiac Index 2.8 Cardiac Index 2.5 Cardiac Index 2.5 Cardiac Index 2.5 Cardiac Index 2.5 Cardiac Index 2.5 Cardiac Index 2.5 Cardiac Index 2.5 Cardiac Index 2.5 Cardiac Index 2.5 Cardiac Index 2.5 Cardiac Index 2.5 Cardiac Index 2.5 Cardiac Index 2.5 Cardiac Index 2.2 Cardiac Index 2.2 Cardiac Index 2.2 Cardiac Index 2.2 Cardiac Index 2.2 Cardiac Index 2.2 Cardiac Index 2.2 Cardiac Index 2.2 Cardiac Index 2.2 Cardiac Index 2.2 Cardiac Index 2.2 Cardiac Index 2.2 Cardiac Index 2.2 Results 09/07/23 05:08 09/07/23 05:08 Cardiac Enzymes 09/07/23 Range/Units 05:08 AST 348 H (17-59) U/L CBC 09/07/23 Range/Units 05:08 WBC 7.3 (3.8-10.6) k/uL RBC 2.68 L (4.30-5.90) m/uL Hgb 8.4 L (13.0-17.5) gm/dL Hct 25.5 L (39.0-53.0) % Plt Count 81 L (150-450) k/uL Comprehensive Metabolic Panel 09/07/23 Range/Units 05:08 Sodium 136 L (137-145) mmol/L Potassium 4.4 (3.5-5.1) mmol/L Chloride 109 H (98-107) mmol/L Carbon Dioxide 16 L (22-30) mmol/L BUN 63 H (9-20) mg/dL Creatinine 3.54 H (0.66-1.25) mg/dL Glucose 119 H (74-99) mg/dL Calcium 7.7 L (8.4-10.2) mg/dL AST 348 H (17-59) U/L ALT 189 H (4-49) U/L Alkaline Phosphatase 103 (38-126) U/L Total Protein 5.5 L (6.3-8.2) g/dL Albumin 3.3 L (3.5-5.0) g/dL Current Medications Generic Name Dose Route Start Last Admin Trade Name Freq PRN Reason Stop Dose Admin Acetaminophen 650 mg 09/05/23 11:04 09/06/23 09:44 Acetaminophen Tab 325 Mg Tab PO 650 mg Q4HR PRN Administration Fever and/ or Pain Albuterol/Ipratropium 3 ml 09/02/23 14:11 Ipratropium-Albuterol 3 Ml Neb INHALATION RT-Q2H PRN Shortness Of Breath Or Wheezing Albuterol/Ipratropium 3 ml 09/02/23 20:00 09/07/23 20:08 Ipratropium-Albuterol 3 Ml Neb INHALATION Not Given RT-QID ZAID Aspirin 81 mg 09/07/23 09:00 09/07/23 08:15 Aspirin 81 Mg PO 81 mg DAILY ZAID Administration Benzocaine/Menthol 1 each 09/02/23 14:11 Benzocaine/Menthol Lozeng 1 Each Lozenge MUCOUS MEM Q2H PRN Sore Throat Bisacodyl 10 mg 09/03/23 09:00 Bisacodyl 10 Mg Supp RECTAL DAILY PRN Constipation Buspirone HCl 15 mg 09/02/23 21:00 09/07/23 20:22 Buspirone Hcl 5 Mg Tab PO 15 mg BID ZAID Administration Clopidogrel Bisulfate 75 mg 09/03/23 09:00 09/07/23 08:15 Clopidogrel 75 Mg Tab PO 75 mg DAILY ZAID Administration Dextrose/Water 25 ml 09/02/23 14:11 Dextrose 50% Syringe 50 Ml IVP PER PROTOCOL PRN Hypoglycemia Protocol Dextrose/Water 50 ml 09/02/23 14:11 Dextrose 50% Syringe 50 Ml IVP PER PROTOCOL PRN Hypoglycemia Protocol Duloxetine HCl 60 mg 09/03/23 09:00 09/07/23 08:15 Duloxetine Hcl 60 Mg Capsule. PO 60 mg DAILY ZAID Administration Heparin Sodium (Porcine) 5,000 unit 09/02/23 16:00 09/07/23 16:52 Heparin Sodium,Porcine 5,000 Unit/Ml 1 Ml Vial SQ Not Given Q8HR ZAID Amiodarone HCl 150 mg/ 103 mls @ 618 mls/hr 09/02/23 14:11 Dextrose/Water IV .Q10M PRN A.FIB/FLUTTER Protocol Amiodarone HCl 450 mg/ 250 mls @ 16.667 mls/hr 09/02/23 14:11 Dextrose/Water IV .Q15H PRN A.FIB/FLUTTER Protocol 0.5 MG/MIN Norepinephrine Bitartrate 4 mg 254 mls @ 5.979 mls/hr 09/02/23 15:00 09/07/23 19:23 / Sodium Chloride IV 0.03 mcg/kg/min .Q24H ZAID 8.969 mls/hr Titration Protocol 0.02 MCG/KG/MIN Calcium Gluconate/Sodium 100 mls @ 100 mls/hr 09/02/23 14:11 Chloride 2 gm/ IV Solution IVPB 09/09/23 14:12 ONCE PRN Ionized Calcium less than 4.4 Amiodarone HCl 360 mg/ 207.2 mls @ 34.533 mls/hr 09/02/23 14:11 Dextrose/Water IV .Q6H PRN A.FIB/FLUTTER Protocol 1 MG/MIN Vasopressin 20 unit/ Sodium 51 mls @ 6.12 mls/hr 09/02/23 15:00 09/07/23 19:24 Chloride IV Not Given .Q8H20M ZAID Protocol 0.04 UNITS/MIN Insulin Human Regular 100 unit 101 mls @ 0 mls/hr 09/02/23 16:30 09/07/23 20:20 / Sodium Chloride IV 5.5 unit/hr .Q0M ZAID 5.555 mls/hr Titration Protocol Per Protocol Sodium Chloride 1,000 mls @ 20 mls/hr 09/05/23 07:15 09/07/23 06:21 Saline 0.9% IV Not Given .Q24H ZAID Dobutamine HCl/Dextrose 500 mg 250 mls @ 11.925 mls/hr 09/06/23 08:00 09/07/23 04:31 / IV Solution IV 5 mcg/kg/min .[id number] ZAID 11.925 mls/hr Administration 5 MCG/KG/MIN Magnesium Hydroxide 2,400 mg 09/03/23 09:00 Magnesium Hydroxide 2,400 Mg/30 Ml Cup PO BID PRN Constipation Metoclopramide HCl 10 mg 09/02/23 14:11 Metoclopramide 5 Mg/Ml 2 Ml Vial IVP Q4H PRN Nausea And Vomiting Metoprolol Tartrate 12.5 mg 09/04/23 09:00 09/07/23 20:22 Metoprolol Tartrate 12.5 Mg Tab PO 12.5 mg BID ZAID Administration Miscellaneous Information 1 each 09/02/23 14:11 Potassium Replacement Protocol 1 Each Misc MISCELLANE DAILY PRN Per Protocol Protocol Miscellaneous Information 1 each 09/02/23 14:11 Magnesium Replacement Protocol 1 Each Misc MISCELLANE DAILY PRN Per Protocol Protocol Ondansetron HCl 4 mg 09/02/23 14:11 09/03/23 17:07 Ondansetron 4 Mg/2 Ml Vial IVP 4 mg Q6HR PRN Administration Nausea And Vomiting Pantoprazole Sodium 40 mg 09/05/23 07:30 09/07/23 06:36 Pantoprazole 40 Mg Tablet PO 40 mg [id number] ZAID Administration Senna/Docusate Sodium 2 each 09/03/23 21:00 09/07/23 20:22 Sennosides-Docusate Sodium 1 Each Tab PO 2 each HS ZAID Administration Sodium Bicarbonate 650 mg 09/06/23 12:00 09/07/23 20:22 Sodium Bicarbonate Tab 650 Mg Tab PO 650 mg BID ZAID Administration Sodium Chloride 10 ml 09/02/23 21:00 09/07/23 20:22 Sodium Chloride 0.9% Flush 10 Ml Syringe IV 10 ml BID ZAID Administration Intake and Output 09/07/23 09/07/23 09/07/23 06:59 14:59 22:59 Intake Total 727.311 733.463 561.905 Output Total 160 85 110 Balance 567.311 648.463 451.905 Intake: IV 298 298 160 Lactated Ringers 1,000 ml 160 160 100 @ 20 mls/hr IV .Q24H ZAID Rx#:[id number] NS cardiac output 90 90 30 pressure bags 48 48 30 Intake, IV Titration 429.311 235.463 151.905 Amount DOBUTamine DRIP 500 mg In 234.525 Dextrose/Water 1 250ml. bag @ 5 MCG/KG/MIN 11.925 mls/hr IV .[id number] ZAID Rx#:[id number] Insulin Regular 100 unit 29.112 21.092 23.903 In Sodium Chloride 0.9% 100 ml @ Per Protocol IV .Q0M ZAID Rx#:[id number] Norepinephrine 4 mg In 118.397 214.371 77.002 Sodium Chloride 0.9% 250 ml @ 0.02 MCG/KG/MIN 5. 979 mls/hr IV .Q24H ZAID Rx#:[id number] Vasopressin 20 unit In 47.277 51 Sodium Chloride 0.9% 50 ml @ 0.04 UNITS/MIN 6.12 mls/hr IV .Q8H20M ZAID Rx# :[id number] Oral 200 250 Output: Chest Tube Drainage 40 0 Left 0 0 Right 40 0 Urine 120 85 110 Other: Voiding Method Indwelling Catheter Indwelling Catheter Indwelling Catheter 09/07/23 05:08 09/07/23 05:08
[2023-09-07] MEDS: BUMETANIDE 0.25 MG/ML 4 ML VIAL IVP STA (21:18)
[2023-09-07 21:56] LABS: Glucose,Whole Blood 176 mg/dL (70-110)
[2023-09-07 23:29] LABS: % Iron Saturation 8.98 (15.00-50.00)
[2023-09-07 23:58] LABS: Glucose,Whole Blood 143 mg/dL (70-110)
[2023-09-08 01:57] LABS: Glucose,Whole Blood 125 mg/dL (70-110)
[2023-09-08 03:56] LABS: Glucose,Whole Blood 119 mg/dL (70-110)
[2023-09-08 04:20] LABS: HCT 25.9 % (39.0-53.0); HGB 8.7 gm/dL (13.0-17.5); MCH 32.3 pg (25.0-35.0); MCHC 33.6 g/dL (31.0-37.0); Mean Platelet Volume 9.4; RDW 14.9 % (11.5-15.5)
[2023-09-08 04:32] LABS: ALT 162 U/L (4-49); AST 307 U/L (17-59); African American GFR (CKD) 16 (>60 ml/min/1.73 sqM); Albumin 3.1 g/dL (3.5-5.0); Alkaline Phosphatase 135 U/L (38-126); Anion Gap 13 mmol/L; Blood Urea Nitrogen 71 mg/dL (9-20); Calcium 7.6 mg/dL (8.4-10.2); Carbon Dioxide 15 mmol/L (22-30); Chloride 109 mmol/L (98-107); Glucose 109 mg/dL (74-99); Magnesium 2.9 mg/dL (1.6-2.3); Non-African American GFR(CKD) 14 (>60 ml/min/1.73 sqM); Potassium 4.4 mmol/L (3.5-5.1); Sodium 137 mmol/L (137-145); Total Bilirubin 1.1 mg/dL (0.2-1.3); Total Protein 5.4 g/dL (6.3-8.2)
[2023-09-08 05:10] LABS: Platelet Count 85 k/uL (150-450)
[2023-09-08 06:07] LABS: Glucose,Whole Blood 115 mg/dL (70-110)
[2023-09-08 06:38] LABS: Anisocytosis (M) Present; Band Neutrophils % 2 %; Eosinophils # (M) 0.06 k/uL (0-0.7); Lymphocytes # (M) 0.54 k/uL (1.0-4.8); Neutrophils % (M) 83 %; Nucleated Red Blood Cells 0 /100 WBC (0-0); Total Cells Counted 100
[2023-09-08 06:39] LABS: Polychromasia Present
[2023-09-08 07:53] LABS: Glucose,Whole Blood 109 mg/dL (70-110)
--- NOTE | 2023-09-08 08:09 | P.PN ---
Subjective Progress Note Date: 09/08/23 Principal diagnosis: Triple-vessel coronary artery disease with left main disease. Previous medical history of hypertension, hyperlipidemia, diabetes mellitus, chronic systolic he art failure with reduced ejection fraction/ischemic cardiomyopathy, bipolar disorder, obesity, peripheral vascular disease, developmental delay, previous tobacco dependence, noncompliance POD #7 right heart catheterization, ultrasound guided access, placement of intra-aortic balloon pump from right femoral access performed by Dr. Monreal. POD #6 on pump coronary artery bypass grafting x 3, left internal thoracic artery (in-situ) sequential to diagonal and left anterior descending coronary artery, right greater saphenous vein from aorta to obtuse marginal artery #1, left atrial appendage ligation with #35mm AtriClip, endoscopic bilateral greater saphenous vein harvest, graft flow measurements using the iSites-miDrive flow meter system, trans-esophageal echo Postoperative acute blood loss anemia and thrombocytopenia, expected given hemodilution and cardiopulmonary bypass LEONARDO, elevated transaminases, cardiogenic shock, likely due to hypoperfusion The patient was seen and examined sitting up in recliner this morning. He is in no acute distress. Currently in sinus rhythm, blood pressure better, off Levophed, dopamine, remains on vasopressin and dobutamine. Remains on 2 L nasal cannula with oxygen saturation in the high 90s. Patient continues to refuse to participate in his care, very minimal effort. Refused IS and coughing, nursing unable to get him to stand and needed karin lift to get him in recliner. Right internal jugular [place]/Cordis remains, chest tubes discontinued yesterday. Chest x-ray, labs reviewed. Kidney function continues to worsen, no change in urine output despite given IV lasix yesterday morning by nephro and bumex twice yesterday evening by cardiology. Liver function has improved. Objective - Vital Signs Vital signs: Vital Signs Temp 37.1 F L 09/07/23 16:00 Pulse 82 09/08/23 07:00 Resp 26 H 09/08/23 07:00 BP 109/50 09/08/23 07:00 Pulse Ox 98 09/08/23 07:00 FiO2 40 09/02/23 20:33 Intake & Output 09/07/23 09/08/23 09/08/23 18:59 06:59 18:59 Intake Total 1220.212 774.395 Output Total 175 225 Balance 1045.212 549.395 Intake: IV 432 338 Lactated Ringers 1,000 ml 240 260 @ 20 mls/hr IV .Q24H ZAID Rx#:[id number] NS cardiac output 120 0 pressure bags 72 78 Intake, IV Titration 338.212 436.395 Amount DOBUTamine DRIP 500 mg In 234.525 Dextrose/Water 1 250ml. bag @ 5 MCG/KG/MIN 11.925 mls/hr IV .[id number] ZAID Rx#:[id number] Insulin Regular 100 unit 33.212 45.946 In Sodium Chloride 0.9% 100 ml @ Per Protocol IV .Q0M ZAID Rx#:[id number] Norepinephrine 4 mg In 254.000 93.678 Sodium Chloride 0.9% 250 ml @ 0.02 MCG/KG/MIN 5. 979 mls/hr IV .Q24H ZAID Rx#:[id number] Vasopressin 20 unit In 51 62.246 Sodium Chloride 0.9% 50 ml @ 0.04 UNITS/MIN 6.12 mls/hr IV .Q8H20M ZAID Rx# :[id number] Oral 450 Output: Chest Tube Drainage 0 Left 0 Right 0 Urine 175 225 Other: Voiding Method Indwelling Catheter Indwelling Catheter ABP, PAP, CO, CI - Last Documented Arterial Blood Pressure 83/58 Pulmonary Artery Pressure 40/18 Cardiac Output 3.9 Cardiac Index 2.2 - Exam CONSTITUTIONAL: Appears comfortable, no acute distress RESPIRATORY: Lungs sounds diminished bilaterally. Respirations even, nonlabored. Currently on 2 L nasal cannula with oxygen saturation 99%. Uncooperative with incentive spirometry, coughing CARDIOVASCULAR: S1, S2 present. Regular rate and rhythm, sinus rhythm on telemetry. Sternum stable. Palpable peripheral pulses bilaterally. Generalized edema present. No calf pain or tenderness noted. Heart hugger, ant iembolism stockings, SCDs present. GASTROINTESTINAL: Abdomen soft, nontender, nondistended. Active bowel sounds present 4 quadrants. Tolerating minimal liquids GENITOURINARY: Hobson present draining clear, yellow urine. Output overnight 15-30 mL per hour, 395 mL in the last 24 hours INTEGUMENTARY: Skin is warm and dry. Anterior chest incision well approximated and covered with dry intact dressing. Bilateral lower extremity EVH sites well approximated without redness or drainage. NEUROLOGIC: Cranial nerves II through XII intact MUSKULOSKELETAL: Able to move all extremities, strength equal bilaterally, generalized weakness present although difficult to assess as patient isn't cooperating with care PSYCHIATRIC: Alert and oriented INVASIVE LINES AND TUBES: A/V epicardial pacemaker wires present, grounded. Right internal jugular [place]/Cordis present. Last CO/CI 3.9/2.2, PA 46/16, CVP 13 - Allied health notes Allied health notes reviewed: nursing - Labs CBC & Chem 7: 09/08/23 03:51 09/08/23 03:51 Labs: Abnormal Lab Results - Last 24 Hours (Table) 09/07/23 09/07/23 09/07/23 Range/Units 05:08 14:23 16:50 RBC (4.30-5.90) m/uL Hgb (13.0-17.5) gm/dL Hct (39.0-53.0) % Plt Count (150-450) k/uL Lymphocytes # (Manual) (1.0-4.8) k/uL Chloride (98-107) mmol/L Carbon Dioxide (22-30) mmol/L BUN (9-20) mg/dL Creatinine (0.66-1.25) mg/dL Glucose (74-99) mg/dL POC Glucose (mg/dL) 121 H 141 H (70-110) mg/dL Calcium (8.4-10.2) mg/dL Magnesium (1.6-2.3) mg/dL Iron 15 L (65-175) UG/DL TIBC 167 L (228-460) UG/DL % Saturation 8.98 L (15.00-50.00) Transferrin 119.0 L (204.0-354.0) mg/dL AST (17-59) U/L ALT (4-49) U/L Alkaline Phosphatase (38-126) U/L Total Protein (6.3-8.2) g/dL Albumin (3.5-5.0) g/dL 09/07/23 09/07/23 09/07/23 Range/Units 18:01 19:41 21:54 RBC (4.30-5.90) m/uL Hgb (13.0-17.5) gm/dL Hct (39.0-53.0) % Plt Count (150-450) k/uL Lymphocytes # (Manual) (1.0-4.8) k/uL Chloride (98-107) mmol/L Carbon Dioxide (22-30) mmol/L BUN (9-20) mg/dL Creatinine (0.66-1.25) mg/dL Glucose (74-99) mg/dL POC Glucose (mg/dL) 161 H 186 H 176 H (70-110) mg/dL Calcium (8.4-10.2) mg/dL Magnesium (1.6-2.3) mg/dL Iron (65-175) UG/DL TIBC (228-460) UG/DL % Saturation (15.00-50.00) Transferrin (204.0-354.0) mg/dL AST (17-59) U/L ALT (4-49) U/L Alkaline Phosphatase (38-126) U/L Total Protein (6.3-8.2) g/dL Albumin (3.5-5.0) g/dL 09/07/23 09/08/23 09/08/23 Range/Units 23:57 01:56 03:51 RBC 2.70 L (4.30-5.90) m/uL Hgb 8.7 L (13.0-17.5) gm/dL Hct 25.9 L (39.0-53.0) % Plt Count 85 L (150-450) k/uL Lymphocytes # (Manual) 0.54 L (1.0-4.8) k/uL Chloride (98-107) mmol/L Carbon Dioxide (22-30) mmol/L BUN (9-20) mg/dL Creatinine (0.66-1.25) mg/dL Glucose (74-99) mg/dL POC Glucose (mg/dL) 143 H 125 H (70-110) mg/dL Calcium (8.4-10.2) mg/dL Magnesium (1.6-2.3) mg/dL Iron (65-175) UG/DL TIBC (228-460) UG/DL % Saturation (15.00-50.00) Transferrin (204.0-354.0) mg/dL AST (17-59) U/L ALT (4-49) U/L Alkaline Phosphatase (38-126) U/L Total Protein (6.3-8.2) g/dL Albumin (3.5-5.0) g/dL 09/08/23 09/08/23 09/08/23 Range/Units 03:51 03:54 06:06 RBC (4.30-5.90) m/uL Hgb (13.0-17.5) gm/dL Hct (39.0-53.0) % Plt Count (150-450) k/uL Lymphocytes # (Manual) (1.0-4.8) k/uL Chloride 109 H (98-107) mmol/L Carbon Dioxide 15 L (22-30) mmol/L BUN 71 H (9-20) mg/dL Creatinine 4.40 H (0.66-1.25) mg/dL Glucose 109 H (74-99) mg/dL POC Glucose (mg/dL) 119 H 115 H (70-110) mg/dL Calcium 7.6 L (8.4-10.2) mg/dL Magnesium 2.9 H (1.6-2.3) mg/dL Iron (65-175) UG/DL TIBC (228-460) UG/DL % Saturation (15.00-50.00) Transferrin (204.0-354.0) mg/dL AST 307 H (17-59) U/L ALT 162 H (4-49) U/L Alkaline Phosphatase 135 H (38-126) U/L Total Protein 5.4 L (6.3-8.2) g/dL Albumin 3.1 L (3.5-5.0) g/dL - Imaging and Cardiology Chest x-ray: image reviewed Assessment and Plan Assessment: Triple-vessel coronary artery disease with left main disease, status post three- vessel on pump CABG History of hypertension, currently hypotensive from vasoplegia, remains on IV vaso and levo Hyperlipidemia, treated, cholesterol 135, LDL 60, triglycerides 178 Diabetes mellitus, preoperative hemoglobin A1c 7.4% Chronic systolic heart failure with reduced ejection fraction/ischemic cardiomyopathy, EF 30-35%, preoperative placement of intra-aortic balloon pump Bipolar disorder Obesity Peripheral vascular disease, right FAIZAN 0.95, left FAIZAN 0.97 Developmental delay Previous tobacco dependence Moderate COPD, preoperative FEV1 55% of predicted Noncompliance Postoperative acute blood loss anemia and thrombocytopenia, expected Incidental finding of tiny left pneumothorax, not a complication, resolved LEONARDO, elevated transaminases, cardiogenic shock, likely from hypoperfusion Plan: Continue aspirin, Plavix and beta-feliberto with hold parameters. Statin discontinued due to elevated transaminases, will restart when able Continue vaso at current rate, wean as tolerated. Continue dobutamine Wean oxygen as tolerated. Encourage use of incentive spirometry 10 times every hour while awake. Bronchodilators per pulmonology Increase activity, ambulate as tolerated. PT/OT/cardiac rehab following, patient resistant to participate Will monitor daily labs and chest x-rays. Electrolyte replacement per protocol. Diuretics per nephrology Pain control per current medication regimen. Avoid to Toradol due to his ibuprofen allergy. No narcotics Continue Hobson catheter for another 24 hours, continue to record strict accurate intake and output Insulin management per internal medicine GI/DVT prophylaxis Continue [place] catheter with hemodynamic monitoring Daily weights Patient needs continued encouragement to participate in his care, unfortunately he has a history of refusal, was discussed at length with the patient and his brother that refusal to participate in his care could result in significant complications Prognosis remains very guarded More recommendations to follow based on patient's clinical course.
[2023-09-08 10:02] LABS: Glucose,Whole Blood 136 mg/dL (70-110)
[2023-09-08] MEDS ORDERED: BUMETANIDE 0.25 MG/ML 4 ML VIAL IVP STA (10:08)
--- NOTE | 2023-09-08 10:42 | XR ---
EXAMINATION TYPE: XR chest 1V portable DATE OF EXAM: 09/08/2023 COMPARISON: 09/07/2023 INDICATION: Post cardiac surgery TECHNIQUE: Single frontal view of the chest is obtained. FINDINGS: The heart size is normal. The pulmonary vasculature is normal. Right lower lobe infiltrate is present. Correlate for atelectasis. Small right pleural effusion is pr esent. Minimal left pleural effusion may be present. Mild infiltrate remaining at the left base. [place]-Isabell catheter is present with the tip in the main pulmonary artery region. IMPRESSION: 1. Bibasilar infiltrates. Small right and minimal left pleural effusions remain. 2. [place]-Isabell catheter remains present
--- NOTE | 2023-09-08 10:47 | P.PN ---
Subjective patient is seen for follow-up for acute kidney injury, oliguric hemodynamic ATN. Status post coronary artery bypass surgery on 09/02/2023 Patient is maintained on dobutamine at 5 mcg/kg/m. EF is 20-25%. off of levo fed patient remains on vasopressin. urine output increased to about 40 -25 cc/hrafter IV Lasix 60 mg. Patient also received Bumex 3 mg yesterday. This morning urine output is back down to about 10 ML per hour. No shortness of breath. Objective - Vital Signs Vital signs: Vital Signs Temp 37.1 F L 09/07/23 16:00 Pulse 80 09/08/23 10:00 Resp 34 H 09/08/23 10:00 BP 96/45 09/08/23 10:00 Pulse Ox 98 09/08/23 10:00 FiO2 40 09/02/23 20:33 Intake & Output 09/07/23 09/08/23 09/08/23 18:59 06:59 18:59 Intake Total 1220.212 774.395 131.604 Output Total 175 225 30 Balance 1045.212 549.395 101.604 Intake: IV 432 338 128 Lactated Ringers 1,000 ml 240 260 90 @ 20 mls/hr IV .Q24H ZAID Rx#:[id number] NS cardiac output 120 0 20 pressure bags 72 78 18 Intake, IV Titration 338.212 436.395 3.604 Amount DOBUTamine DRIP 500 mg In 234.525 Dextrose/Water 1 250ml. bag @ 5 MCG/KG/MIN 11.925 mls/hr IV .[id number] ZAID Rx#:[id number] Insulin Regular 100 unit 33.212 45.946 3.604 In Sodium Chloride 0.9% 100 ml @ Per Protocol IV .Q0M ZAID Rx#:[id number] Norepinephrine 4 mg In 254.000 93.678 Sodium Chloride 0.9% 250 ml @ 0.02 MCG/KG/MIN 5. 979 mls/hr IV .Q24H ZAID Rx#:[id number] Vasopressin 20 unit In 51 62.246 Sodium Chloride 0.9% 50 ml @ 0.04 UNITS/MIN 6.12 mls/hr IV .Q8H20M ZAID Rx# :[id number] Oral 450 Output: Chest Tube Drainage 0 Left 0 Right 0 Urine 175 225 30 Other: Voiding Method Indwelling Catheter Indwelling Catheter Indwelling Catheter ABP, PAP, CO, CI - Last Documented Arterial Blood Pressure 83/58 Pulmonary Artery Pressure 43/16 Cardiac Output 3.9 Cardiac Index 2.2 - Exam patient is awake. No acute distress Examination of the heart S1 and S2 Examination of the lungs decreased breath sounds at the bases Abdomen is soft Examination of lower extremities shows no significant edema - Labs CBC & Chem 7: 09/08/23 03:51 09/08/23 03:51 Labs: Abnormal Lab Results - Last 24 Hours (Table) 09/07/23 09/07/23 09/07/23 Range/Units 05:08 14:23 16:50 RBC (4.30-5.90) m/uL Hgb (13.0-17.5) gm/dL Hct (39.0-53.0) % Plt Count (150-450) k/uL Lymphocytes # (Manual) (1.0-4.8) k/uL Chloride (98-107) mmol/L Carbon Dioxide (22-30) mmol/L BUN (9-20) mg/dL Creatinine (0.66-1.25) mg/dL Glucose (74-99) mg/dL POC Glucose (mg/dL) 121 H 141 H (70-110) mg/dL Calcium (8.4-10.2) mg/dL Magnesium (1.6-2.3) mg/dL Iron 15 L (65-175) UG/DL TIBC 167 L (228-460) UG/DL % Saturation 8.98 L (15.00-50.00) Transferrin 119.0 L (204.0-354.0) mg/dL AST (17-59) U/L ALT (4-49) U/L Alkaline Phosphatase (38-126) U/L Total Protein (6.3-8.2) g/dL Albumin (3.5-5.0) g/dL 09/07/23 09/07/23 09/07/23 Range/Units 18:01 19:41 21:54 RBC (4.30-5.90) m/uL Hgb (13.0-17.5) gm/dL Hct (39.0-53.0) % Plt Count (150-450) k/uL Lymphocytes # (Manual) (1.0-4.8) k/uL Chloride (98-107) mmol/L Carbon Dioxide (22-30) mmol/L BUN (9-20) mg/dL Creatinine (0.66-1.25) mg/dL Glucose (74-99) mg/dL POC Glucose (mg/dL) 161 H 186 H 176 H (70-110) mg/dL Calcium (8.4-10.2) mg/dL Magnesium (1.6-2.3) mg/dL Iron (65-175) UG/DL TIBC (228-460) UG/DL % Saturation (15.00-50.00) Transferrin (204.0-354.0) mg/dL AST (17-59) U/L ALT (4-49) U/L Alkaline Phosphatase (38-126) U/L Total Protein (6.3-8.2) g/dL Albumin (3.5-5.0) g/dL 09/07/23 09/08/23 09/08/23 Range/Units 23:57 01:56 03:51 RBC 2.70 L (4.30-5.90) m/uL Hgb 8.7 L (13.0-17.5) gm/dL Hct 25.9 L (39.0-53.0) % Plt Count 85 L (150-450) k/uL Lymphocytes # (Manual) 0.54 L (1.0-4.8) k/uL Chloride (98-107) mmol/L Carbon Dioxide (22-30) mmol/L BUN (9-20) mg/dL Creatinine (0.66-1.25) mg/dL Glucose (74-99) mg/dL POC Glucose (mg/dL) 143 H 125 H (70-110) mg/dL Calcium (8.4-10.2) mg/dL Magnesium (1.6-2.3) mg/dL Iron (65-175) UG/DL TIBC (228-460) UG/DL % Saturation (15.00-50.00) Transferrin (204.0-354.0) mg/dL AST (17-59) U/L ALT (4-49) U/L Alkaline Phosphatase (38-126) U/L Total Protein (6.3-8.2) g/dL Albumin (3.5-5.0) g/dL 09/08/23 09/08/23 09/08/23 Range/Units 03:51 03:54 06:06 RBC (4.30-5.90) m/uL Hgb (13.0-17.5) gm/dL Hct (39.0-53.0) % Plt Count (150-450) k/uL Lymphocytes # (Manual) (1.0-4.8) k/uL Chloride 109 H (98-107) mmol/L Carbon Dioxide 15 L (22-30) mmol/L BUN 71 H (9-20) mg/dL Creatinine 4.40 H (0.66-1.25) mg/dL Glucose 109 H (74-99) mg/dL POC Glucose (mg/dL) 119 H 115 H (70-110) mg/dL Calcium 7.6 L (8.4-10.2) mg/dL Magnesium 2.9 H (1.6-2.3) mg/dL Iron (65-175) UG/DL TIBC (228-460) UG/DL % Saturation (15.00-50.00) Transferrin (204.0-354.0) mg/dL AST 307 H (17-59) U/L ALT 162 H (4-49) U/L Alkaline Phosphatase 135 H (38-126) U/L Total Protein 5.4 L (6.3-8.2) g/dL Albumin 3.1 L (3.5-5.0) g/dL 09/08/23 Range/Units 10:01 RBC (4.30-5.90) m/uL Hgb (13.0-17.5) gm/dL Hct (39.0-53.0) % Plt Count (150-450) k/uL Lymphocytes # (Manual) (1.0-4.8) k/uL Chloride (98-107) mmol/L Carbon Dioxide (22-30) mmol/L BUN (9-20) mg/dL Creatinine (0.66-1.25) mg/dL Glucose (74-99) mg/dL POC Glucose (mg/dL) 136 H (70-110) mg/dL Calcium (8.4-10.2) mg/dL Magnesium (1.6-2.3) mg/dL Iron (65-175) UG/DL TIBC (228-460) UG/DL % Saturation (15.00-50.00) Transferrin (204.0-354.0) mg/dL AST (17-59) U/L ALT (4-49) U/L Alkaline Phosphatase (38-126) U/L Total Protein (6.3-8.2) g/dL Albumin (3.5-5.0) g/dL Assessment and Plan Assessment: 1. Acute kidney injury secondary to ATN secondary to hypotension/cardiogenic shock. Baseline creatinine near 1 and is up to 4.4 today. Oliguric. urine output slightly improved. UA fairly benign. Hemodialysis in a.m. if urine output does not increase further today. 2. Coronary artery disease status post CABG x 3 September 02, 2023. 3. Shock maintained on Levophed, vasopressin, dopamine and dobutamine. 4. Cardiomyopathy with reduced ejection fraction. EF 25-20% 5. Metabolic acidosis secondary to acute kidney injury. 6. Cardiomyopathy with EF 20-25% Plan: repeat IV Lasix today Continue oral sodium bicarb hemodialysis in a.m. if urine output does not improve further today add IV iron
[2023-09-08] MEDS: FUROSEMIDE 10 MG/ML 10 ML VIAL IV STA (11:35)
[2023-09-08 12:00] LABS: Glucose,Whole Blood 159 mg/dL (70-110)
--- NOTE | 2023-09-08 12:47 | P.PN ---
Subjective Progress Note Date: 09/08/23 Principal diagnosis: POD # 6 off-pump coronary artery bypass grafting surgery x 3, left internal thoracic artery (in-situ) sequential to diagonal and left anterior descending coronary artery, right greater saphenous vein from aorta to obtuse marginal artery 1 63-year-old male patient, was brought into the intensive care unit after having an antibiotic balloon pump inserted this morning and this was done in preparation for coronary artery bypass surgery. The patient is known to have CAD, chronic CHF with impaired ejection fraction of 30 to 35%. The patient has been hospitalized with [facility] (formerly [facility]) and an earlier cardiac catheterization from April 2023 showed a 70% left main, 70% proximal LAD, 30% circumflex and 70% obtuse marginal 1 and 60% mid RCA. The patient has impaired LV function with an EF around 30 to 35% along with mild to moderate MR, and s evere pulm hypertension. The patient is scheduled to undergo coronary artery bypass surgery tomorrow. He is currently on room air oxygen. Free of any chest pain. Hemodynamically stable. Augmented blood pressure is around 80. He has some developmental delay and his other comorbid conditions include diabetes mellitus type 2, hypertension and hyperlipidemia. Blood work shows a white cell count of 9, hemoglobin 11.8, platelet count of 206, normal coagulation profile, BUN of 27 with a creatinine of 1 and sodium levels at 138. LFTs are normal. His CAT scan of the chest that was done on 07/16/2023 showed cardiomegaly with small right and left-sided pleural effusion. This is consistent with CHF. No mediastinal lymphadenopathy. The patient is seen today September 02, 2023 in follow-up in the intensive care unit following surgery. He had undergone an on pump coronary artery bypass grafting x 3 with a left internal thoracic artery sequential to diagonal and the LAD. Right SVG from the aorta to the obtuse marginal #1. Left atrial appendage ligation and clipping. He remains intubated on the mechanical ventilator and assist-control mode at a rate of 14, tidal volume 500, FiO2 40% and a PEEP of 10. He remains on propofol at 20 mcg/kg/min. Lactated Ringer's at 50 MLS per hour. He is requiring vasopressin at 0.04 units/min. Insulin drip at 1 unit/h. Norepinephrine at 0.05 mcg/kg/min. Milrinone at 0.25 mcg/kg/min intra-aortic balloon pump remains in place. Mediastinal and right and left split chest tubes remain in place. Cardiac output is 4.7. Cardiac index 2.6. Received albumin. Receiving cefazolin. Heparin for DVT prophylaxis. White count 11.7. Hemoglobin 11.5. Platelets 84,000. INR 1.4. Sodium 141. Potassium 3.7. Bicarb 22. BUN 22. Creatinine 0.88. Glucose 101. X-ray no overt failure, pneumothorax or sizable consolidation. ABG's are pending. Patient was today on 09/03/2023, patient was extubated last night uneventfully, patient is now on 2 L nasal cannula, his intra-aortic balloon has been removed today patient remains on pressors and on inotropes. Still requiring norepinephrine at 0.02 mcg/kg/min still on milrinone 0.25 mcg/kg/min and on 0.04 units/min of vasopressin. Cardiac output today is 6.5 cardiac index is 3.7 PA pressure 41/17 CVP of 15. Continues to have mediastinal left and right-sided pleural chest tubes in place, had about 780 mL output since surgery. Chest x- ray is showing mostly postoperative changes labs were all reviewed. WBC count is 15.2 hemoglobin 9.2. Basic metabolic profile is normal, creatinine 1.10 up from 0.88 yesterday Reevaluated today on 09/04/2023, patient remains in the ICU on 3 L nasal cannula, insulin drip at 1.5 units/h still receiving norepinephrine at 0.08 mcg/kg/min milrinone 0.1 mcg/kg/min vasopressin at 0.03 units/min. Cardiac output is 5.0 cardiac index 2.8, patient remains marginal at best, he is sitting at the bedside chair, does not seem to be in distress, on 3 L nasal cannula. Chest x- ray showed no evidence of pulmonary edema no evidence of pneumonia he does have a small tiny apical left pneumothorax. WBC count is 17.7 hemoglobin 9.4. Basic metabolic profile is normal however his BUN is 34 creatinine is 1.52, apparently the patient does have sustained some acute kidney injury most likely related to hypotension/acute tubular necrosis. Patient was reevaluated today on 09/05/2023, remains in the ICU, still requiring multiple drips, he is on dopamine at 2.5 mcg/kg/min norepinephrine at 0.03 mcg/kg/min vasopressin 0.03 units/min patient is also on insulin at 1.5 units/h. Cardiac index remains low at 1.9 cardiac output is relatively low at 3.4. Pulmonary artery pressure 44/18, CVP is 12. Patient does not seem to be very much motivated, he is achieving less than 500 cc on incentive spirometry. The last patient is on 2 L nasal cannula, refusing to participate in physical activity, refusing incentive spirometry, chest tubes, remain in place, prognosis remains guarded. Chest x-ray showed mostly bibasilar atelectasis, mild interstitial prominence, I doubt left-sided pneumothorax as documented by radiology Reevaluate today on 09/06/2023, patient is basically about the same. Patient is in the ICU, he is on multiple drips including higher dose of inotrope, milrinone 0.25 he is on norepinephrine at 0.02 mcg/kg/min vasopressin at 0.03 units/min dopamine at 2.5 mcg/kg/min dobutamine at 2.5 mcg/kg/min insulin at 2.5 units an hour, urine output is low, patient received albumin cardiac index is 2.9 today cardiac output is 5.9. His renal functioning is getting a bit worse, patient apparently the patient is developing what seems to be a cardiorenal syndrome. Chest x-ray is showing atelectasis and bibasilar pleural effusions. Patient is not motivated, does not seem to be interested in getting motivated. And been doing poorly with incentive spirometry Reevaluate today on 09/06, patient is basically about the same, he is now postoperative day #5, sitting at the bedside chair, patient is not motivated what bit remains on multiple inotropes and pressors, patient is receiving dopamine at 2.5 mcg/kg/min dobutamine at 5 mcg/kg/min norepinephrine at 0.06 mcg/kg/min vasopressin at 0.03 units/min and he is also on insulin at 3.5 units/h today he is off milrinone. Cardiac output is 3.8 cardiac index is 2.1 PA pressure 43/15 CVP is 13. Chest x-ray showed mostly atelectasis at the bases. No clear-cut evidence of pulmonary edema. Patient is maintained on 2 L nasal cannula, again the patient is doing extremely poorly with incentive spirometry and does not seem to be motivated at all. Renal functioning seems to be getting worse, his BUN is 63 creatinine 3.54, at this rate I am quite concerned with the patient may end up requiring hemodialysis. This is being addressed by nephrology on the case. Liver enzymes are improving Today on 09/08/2023, patient is now postoperative day #6. Patient is still requiring dobutamine at 0.5 mcg/kg/min, still requiring vasopressin at 0.02 units/min, his norepinephrine is presently on hold, and milrinone was discontinued. Still on insulin at 3 units/h. Surprisingly the patient is not developing congestive heart failure, but he is developing worsening renal failure, and he may end up requiring renal replacement therapy. His PA pressure 40/18, his cardiac output is 3.9 cardiac index is 2.2 chest x-ray is showing bibasilar atelectasis and small left pleural effusion with a small right pleural effusion Willow-Isabell remains in place WBC count is 6 hemoglobin 8.7 basic metabolic profile is normal except for bicarb of 15 and again worsening renal profile BUN is up to 71 creatinine 4.40 Objective - Vital Signs Vital signs: Vital Signs Temp 37.1 F L 09/07/23 16:00 Pulse 82 09/08/23 12:00 Resp 26 H 09/08/23 12:00 BP 117/52 09/08/23 12:00 Pulse Ox 96 09/08/23 12:00 FiO2 40 09/08/23 12:00 Intake & Output 09/07/23 09/08/23 09/08/23 18:59 06:59 18:59 Intake Total 1220.212 774.395 245.542 Output Total 175 225 40 Balance 1045.212 549.395 205.542 Intake: IV 432 338 220 Lactated Ringers 1,000 ml 240 260 150 @ 20 mls/hr IV .Q24H [facility]AID Rx#:[id number] NS cardiac output 120 0 40 pressure bags 72 78 30 Intake, IV Titration 338.212 436.395 25.542 Amount DOBUTamine DRIP 500 mg In 234.525 Dextrose/Water 1 250ml. bag @ 5 MCG/KG/MIN 11.925 mls/hr IV .[id number] [facility]AID Rx#:[id number] Insulin Regular 100 unit 33.212 45.946 10.624 In Sodium Chloride 0.9% 100 ml @ Per Protocol IV .Q0M [facility]AID Rx#:[id number] Norepinephrine 4 mg In 254.000 93.678 Sodium Chloride 0.9% 250 ml @ 0.02 MCG/KG/MIN 5. 979 mls/hr IV .Q24H [facility] Rx#:[id number] Vasopressin 20 unit In 51 62.246 14.918 Sodium Chloride 0.9% 50 ml @ 0.04 UNITS/MIN 6.12 mls/hr IV .Q8H20M [facility]AID Rx# :[id number] Oral 450 Output: Chest Tube Drainage 0 Left 0 Right 0 Urine 175 225 40 Other: Voiding Method Indwelling Catheter Indwelling Catheter Indwelling Catheter ABP, PAP, CO, CI - Last Documented Arterial Blood Pressure 83/58 Pulmonary Artery Pressure 43/17 Cardiac Output 3.9 Cardiac Index 2.2 - Exam GENERAL EXAM: Reveals 63-year-old white male on 2 L nasal cannula, not in distress HEAD: Normocephalic. EYES: PERRLA, EOMI. NOSE: Clear with pink turbinates. THROAT: No erythema or exudates. NECK: No masses, no JVD. Left IJ Willow-Isabell catheter in place. CHEST: Sternal dressing dry and intact. Heart hugger in place. LUNGS: Diminished breath sound bilaterally no rhonchi no wheezes CVS: S1 and S2 normal with no audible murmur, regular rhythm. ABDOMEN: No hepatosplenomegaly, diminished bowel sounds, no guarding or rigidity. SKIN: No rashes CENTRAL NERVOUS SYSTEM: Alert and oriented x 3 no gross focal deficits EXTREMITIES: no clubbing edema or cyanosis - Labs CBC & Chem 7: 09/08/23 03:51 09/08/23 03:51 Labs: Abnormal Lab Results - Last 24 Hours (Table) 09/07/23 09/07/23 09/07/23 Range/Units 05:08 14:23 16:50 RBC (4.30-5.90) m/uL Hgb (13.0-17.5) gm/dL Hct (39.0-53.0) % Plt Count (150-450) k/uL Lymphocytes # (Manual) (1.0-4.8) k/uL Chloride (98-107) mmol/L Carbon Dioxide (22-30) mmol/L BUN (9-20) mg/dL Creatinine (0.66-1.25) mg/dL Glucose (74-99) mg/dL POC Glucose (mg/dL) 121 H 141 H (70-110) mg/dL Calcium (8.4-10.2) mg/dL Magnesium (1.6-2.3) mg/dL Iron 15 L (65-175) UG/DL TIBC 167 L (228-460) UG/DL % Saturation 8.98 L (15.00-50.00) Transferrin 119.0 L (204.0-354.0) mg/dL AST (17-59) U/L ALT (4-49) U/L Alkaline Phosphatase (38-126) U/L Total Protein (6.3-8.2) g/dL Albumin (3.5-5.0) g/dL 09/07/23 09/07/23 09/07/23 Range/Units 18:01 19:41 21:54 RBC (4.30-5.90) m/uL Hgb (13.0-17.5) gm/dL Hct (39.0-53.0) % Plt Count (150-450) k/uL Lymphocytes # (Manual) (1.0-4.8) k/uL Chloride (98-107) mmol/L Carbon Dioxide (22-30) mmol/L BUN (9-20) mg/dL Creatinine (0.66-1.25) mg/dL Glucose (74-99) mg/dL POC Glucose (mg/dL) 161 H 186 H 176 H (70-110) mg/dL Calcium (8.4-10.2) mg/dL Magnesium (1.6-2.3) mg/dL Iron (65-175) UG/DL TIBC (228-460) UG/DL % Saturation (15.00-50.00) Transferrin (204.0-354.0) mg/dL AST (17-59) U/L ALT (4-49) U/L Alkaline Phosphatase (38-126) U/L Total Protein (6.3-8.2) g/dL Albumin (3.5-5.0) g/dL 09/07/23 09/08/23 09/08/23 Range/Units 23:57 01:56 03:51 RBC 2.70 L (4.30-5.90) m/uL Hgb 8.7 L (13.0-17.5) gm/dL Hct 25.9 L (39.0-53.0) % Plt Count 85 L (150-450) k/uL Lymphocytes # (Manual) 0.54 L (1.0-4.8) k/uL Chloride (98-107) mmol/L Carbon Dioxide (22-30) mmol/L BUN (9-20) mg/dL Creatinine (0.66-1.25) mg/dL Glucose (74-99) mg/dL POC Glucose (mg/dL) 143 H 125 H (70-110) mg/dL Calcium (8.4-10.2) mg/dL Magnesium (1.6-2.3) mg/dL Iron (65-175) UG/DL TIBC (228-460) UG/DL % Saturation (15.00-50.00) Transferrin (204.0-354.0) mg/dL AST (17-59) U/L ALT (4-49) U/L Alkaline Phosphatase (38-126) U/L Total Protein (6.3-8.2) g/dL Albumin (3.5-5.0) g/dL 09/08/23 09/08/23 09/08/23 Range/Units 03:51 03:54 06:06 RBC (4.30-5.90) m/uL Hgb (13.0-17.5) gm/dL Hct (39.0-53.0) % Plt Count (150-450) k/uL Lymphocytes # (Manual) (1.0-4.8) k/uL Chloride 109 H (98-107) mmol/L Carbon Dioxide 15 L (22-30) mmol/L BUN 71 H (9-20) mg/dL Creatinine 4.40 H (0.66-1.25) mg/dL Glucose 109 H (74-99) mg/dL POC Glucose (mg/dL) 119 H 115 H (70-110) mg/dL Calcium 7.6 L (8.4-10.2) mg/dL Magnesium 2.9 H (1.6-2.3) mg/dL Iron (65-175) UG/DL TIBC (228-460) UG/DL % Saturation (15.00-50.00) Transferrin (204.0-354.0) mg/dL AST 307 H (17-59) U/L ALT 162 H (4-49) U/L Alkaline Phosphatase 135 H (38-126) U/L Total Protein 5.4 L (6.3-8.2) g/dL Albumin 3.1 L (3.5-5.0) g/dL 09/08/23 09/08/23 Range/Units 10:01 11:59 RBC (4.30-5.90) m/uL Hgb (13.0-17.5) gm/dL Hct (39.0-53.0) % Plt Count (150-450) k/uL Lymphocytes # (Manual) (1.0-4.8) k/uL Chloride (98-107) mmol/L Carbon Dioxide (22-30) mmol/L BUN (9-20) mg/dL Creatinine (0.66-1.25) mg/dL Glucose (74-99) mg/dL POC Glucose (mg/dL) 136 H 159 H (70-110) mg/dL Calcium (8.4-10.2) mg/dL Magnesium (1.6-2.3) mg/dL Iron (65-175) UG/DL TIBC (228-460) UG/DL % Saturation (15.00-50.00) Transferrin (204.0-354.0) mg/dL AST (17-59) U/L ALT (4-49) U/L Alkaline Phosphatase (38-126) U/L Total Protein (6.3-8.2) g/dL Albumin (3.5-5.0) g/dL Assessment and Plan Assessment: Impression: Symptomatic multivessel coronary artery disease, Status post on pump coronary artery bypass grafting x 3. Left internal thoracic artery sequential to diagonal and LAD. Right SVG from aorta to obtuse marginal artery #1. Postoperative day #5 Chronic systolic heart failure with impaired ejection fraction of 30 to 35% patient is still requiring significant amount of inotropes and pressors cardiogenic shock and severe LV dysfunction Peripheral vascular disease Diabetes mellitus type 2 with an HbA1c of 10.9 Hypertension Hyperlipidemia History of developmental delay Bipolar disorder Chronic anxiety History of smoking quit more than 20 years ago Left apical pneumothorax, expected Acute kidney injury, suspect ATN, suspect cardiorenal syndrome. Seems to be getting worse, may end up requiring hemodialysis/replacement therapy, today's urine output is 10 mL/h, patient is oliguric Severe cardiomyopathy with ejection fraction of 20 to 25% Severe metabolic acidosis secondary to acute kidney injury and possibly some component of hypoperfusion Recommendations: Patient is being considered for hemodialysis in a.m., and I believe that is very appropriate considering the patient remains oliguric and considering his worsening renal status for Continue to monitor the patient in the ICU Continue pressors and inotropes continue to monitor cardiac index and cardiac output Continue Plavix beta-blockers aspirin and statin Titrate pressors and inotropes as tolerated Daily x-rays of the chest Daily labs Incentive spirometry, however the patient is not motivated and he does not participate whatsoever Ambulation Patient remains unmotivated Patient is critically ill Patient has poor prognosis at this point. Critical care time is over 30 Will continue to follow Time with Patient: Greater than 30
[2023-09-08] MEDS: BUMETANIDE 0.25 MG/ML 10 ML VIAL IV STA (14:11)
--- NOTE | 2023-09-08 15:49 | P.PN ---
Subjective Progress Note Date: 09/08/23 63-year-old gentleman with past medical history significant for coronary artery disease, chronic congestive heart failure with ejection fraction of 30%, hypertension hyperlipidemia diabetes mellitus obesity bipolar disorder cardiomyopathy developmental delay history of nicotine dependence who has been admitted with shortness of breath and lower extremity edema. Patient underwent cardiac catheterization right heart catheterization and intra-aortic balloon pump. * Patient has comorbidities including diabetes mellitus type 2, peripheral arterial disease, bipolar disorder, history of anxiety. * Patient to undergo myocardial revascularization 09/02/2023. * 09/03/23 : Patient admitted to medical ICU. Patient was successfully extubated postprocedure. S/p intra-aortic balloon pump which remains in place through right femoral access. Patient remains on norepinephrine drip, Primacor drip, vasopressin. Bilateral chest tubes remained in place. Followed up by medical ICU and cardiac surgery. Follow-up blood work obtained including WBC 15.2 hemoglobin 9.2 platelet count of 98, serum chemistry sodium 141 potassium 4.7 carbon dioxide 24 BUN 26 creatinine 1.1 blood glucose 118-1 33 * 09/04/23: Patient seen and evaluated in medical ICU room 266, patient continues to remain on Levophed, vasopressin and pressor support. Blood work reviewed WBC 17.7 hemoglobin 9.4 platelet 117. Serum chemistry showed sodium 137 potassium 4.9 carbon dioxide 18 BUN 34 creatinine 1.52 blood glucose 123. Overnight patient was refusing to participate with care, patient counseled by cardiac surgery team as well. Brother at bedside, patient does follow commands, care plan discussed with nursing staff * 09/05/23: Patient seen and evaluated bedside, vitals reviewed blood pressure running in the 90s overnight. Patient remains on 2 L of oxygen. Blood work reviewed CBC shows WBC 14.3 hemoglobin 9.3 platelet 105 serum chemistry sodium 137 potassium 5.2 carbon dioxide 16 BUN 44 creatinine 1.99 total bilirubin 1.3 AST 464 ALT 128 will need to be monitored, p.atient remains lethargic however easily arousable 09/06/2023 -- Patient is seen and evaluated in ICU at bedside Vital signs reviewed and temperature of 97.9, pulse 90, respiration 14 and blood pressure of 110/40 Lab review shows WBC 14.2, hemoglobin of 8.7 and platelet count of 109, sodium 136, potassium 4.8, BUNs/creatinine of 54/2.91; concern about worsening renal function likely related to cardiorenal syndrome; dopamine has been discontinued Chest x-ray reveals atelectasis and bibasilar pleural effusion --Patient remains on pressors and inotropic agents; cardiac index and cardiac output is being monitored closely -Patient remains on Plavix, aspirin, statins and beta-blockers -- Recommended to increase activity 09/07/2023 ---patient is basically about the same, he is now postoperative day #5, sitting at the bedside chair, patient is not motivated what bit remains on multiple inotropes and pressors, patient is receiving dopamine at 2.5 mcg/kg/min dobutamine at 5 mcg/kg/min norepinephrine at 0.06 mcg/kg/min vasopressin at 0.03 units/min and he is also on insulin at 3.5 units/h today he is off milrinone. Chest x-ray showed mostly atelectasis at the bases. No clear-cut evidence of pulmonary edema. Patient is maintained on 2 L nasal cannula, again the patient is doing extremely poorly with incentive spirometry and does not seem to be mo tivated at all. Renal functioning seems to be getting worse, his BUN is 63 creatinine 3.54, at this rate I am quite concerned with the patient may end up requiring hemodialysis. This is being addressed by nephrology on the case. Liver enzymes are improving Continue pressors and inotropes continue to monitor cardiac index and cardiac output Continue dopamine, continue dobutamine, patient is off milrinone today. However he is still requiring norepinephrine and vasopressin Continue Plavix beta-blockers aspirin and statin Titrate pressors and inotropes as tolerated 09/08/2023 --patient is seen and evaluated with family at bedside; now postoperative day #6. -- Patient is still requiring dobutamine at 0.5 mcg/kg/min, still requiring vasopressin at 0.02 units/min, his norepinephrine is presently on hold, and milrinone was discontinued. Still on insulin at 3 units/h. -- chest x-ray is showing bibasilar atelectasis and small left pleural effusion with a small right pleural effusion -- WBC count is 6 hemoglobin 8.7 basic metabolic profile is normal except for bicarb of 15 and again worsening renal profile BUN is up to 71 creatinine 4.40 -Renal function continues to worsen; nephrology on board and planning to continue with IV Lasix and oral sodium bicarbonate; plan for possible hemodialysis in a.m. if urine output does not improve Objective - Vital Signs Vital signs: Vital Signs Temp 37.1 F L 09/07/23 16:00 Pulse 80 09/08/23 10:00 Resp 34 H 09/08/23 10:00 BP 96/45 09/08/23 10:00 Pulse Ox 98 09/08/23 10:00 FiO2 40 09/02/23 20:33 Intake & Output 09/07/23 09/08/23 09/08/23 18:59 06:59 18:59 Intake Total 1220.212 774.395 131.604 Output Total 175 225 30 Balance 1045.212 549.395 101.604 Intake: IV 432 338 128 Lactated Ringers 1,000 ml 240 260 90 @ 20 mls/hr IV .Q24H [facility] Rx#:[id number] NS cardiac output 120 0 20 pressure bags 72 78 18 Intake, IV Titration 338.212 436.395 3.604 Amount DOBUTamine DRIP 500 mg In 234.525 Dextrose/Water 1 250ml. bag @ 5 MCG/KG/MIN 11.925 mls/hr IV .[id number] [facility] Rx#:[id number] Insulin Regular 100 unit 33.212 45.946 3.604 In Sodium Chloride 0.9% 100 ml @ Per Protocol IV .Q0M [facility] Rx#:[id number] Norepinephrine 4 mg In 254.000 93.678 Sodium Chloride 0.9% 250 ml @ 0.02 MCG/KG/MIN 5. 979 mls/hr IV .Q24H [facility] Rx#:[id number] Vasopressin 20 unit In 51 62.246 Sodium Chloride 0.9% 50 ml @ 0.04 UNITS/MIN 6.12 mls/hr IV .Q8H20M [facility] Rx# :[id number] Oral 450 Output: Chest Tube Drainage 0 Left 0 Right 0 Urine 175 225 30 Other: Voiding Method Indwelling Catheter Indwelling Catheter Indwelling Catheter ABP, PAP, CO, CI - Last Documented Arterial Blood Pressure 83/58 Pulmonary Artery Pressure 43/16 Cardiac Output 3.9 Cardiac Index 2.2 - Exam GENERAL: The patient is alert and oriented x3, ill appearance, nasal cannula in place HEENT: Pupils are round and equally reacting to light. EOMI. CARDIOVASCULAR: S1 and S2 present. Chest brace in place PULMONARY: Decreased breath sounds bilaterally, chest tube in place, Hobson catheter in place ABDOMEN: Soft, nontender, nondistended, normoactive bowel sounds. No palpable organomegaly. MUSCULOSKELETAL: No joint swelling or deformity. EXTREMITIES: Lower extremity edema noted. NEUROLOGICAL: Exam limited secondary to lethargy SKIN: No rashes - Labs CBC & Chem 7: 09/08/23 03:51 09/08/23 03:51 Labs: Abnormal Lab Results - Last 24 Hours (Table) 09/07/23 09/07/23 09/07/23 Range/Units 05:08 14:23 16:50 RBC (4.30-5.90) m/uL Hgb (13.0-17.5) gm/dL Hct (39.0-53.0) % Plt Count (150-450) k/uL Lymphocytes # (Manual) (1.0-4.8) k/uL Chloride (98-107) mmol/L Carbon Dioxide (22-30) mmol/L BUN (9-20) mg/dL Creatinine (0.66-1.25) mg/dL Glucose (74-99) mg/dL POC Glucose (mg/dL) 121 H 141 H (70-110) mg/dL Calcium (8.4-10.2) mg/dL Magnesium (1.6-2.3) mg/dL Iron 15 L (65-175) UG/DL TIBC 167 L (228-460) UG/DL % Saturation 8.98 L (15.00-50.00) Transferrin 119.0 L (204.0-354.0) mg/dL AST (17-59) U/L ALT (4-49) U/L Alkaline Phosphatase (38-126) U/L Total Protein (6.3-8.2) g/dL Albumin (3.5-5.0) g/dL 09/07/23 09/07/23 09/07/23 Range/Units 18:01 19:41 21:54 RBC (4.30-5.90) m/uL Hgb (13.0-17.5) gm/dL Hct (39.0-53.0) % Plt Count (150-450) k/uL Lymphocytes # (Manual) (1.0-4.8) k/uL Chloride (98-107) mmol/L Carbon Dioxide (22-30) mmol/L BUN (9-20) mg/dL Creatinine (0.66-1.25) mg/dL Glucose (74-99) mg/dL POC Glucose (mg/dL) 161 H 186 H 176 H (70-110) mg/dL Calcium (8.4-10.2) mg/dL Magnesium (1.6-2.3) mg/dL Iron (65-175) UG/DL TIBC (228-460) UG/DL % Saturation (15.00-50.00) Transferrin (204.0-354.0) mg/dL AST (17-59) U/L ALT (4-49) U/L Alkaline Phosphatase (38-126) U/L Total Protein (6.3-8.2) g/dL Albumin (3.5-5.0) g/dL 09/07/23 09/08/23 09/08/23 Range/Units 23:57 01:56 03:51 RBC 2.70 L (4.30-5.90) m/uL Hgb 8.7 L (13.0-17.5) gm/dL Hct 25.9 L (39.0-53.0) % Plt Count 85 L (150-450) k/uL Lymphocytes # (Manual) 0.54 L (1.0-4.8) k/uL Chloride (98-107) mmol/L Carbon Dioxide (22-30) mmol/L BUN (9-20) mg/dL Creatinine (0.66-1.25) mg/dL Glucose (74-99) mg/dL POC Glucose (mg/dL) 143 H 125 H (70-110) mg/dL Calcium (8.4-10.2) mg/dL Magnesium (1.6-2.3) mg/dL Iron (65-175) UG/DL TIBC (228-460) UG/DL % Saturation (15.00-50.00) Transferrin (204.0-354.0) mg/dL AST (17-59) U/L ALT (4-49) U/L Alkaline Phosphatase (38-126) U/L Total Protein (6.3-8.2) g/dL Albumin (3.5-5.0) g/dL 09/08/23 09/08/23 09/08/23 Range/Units 03:51 03:54 06:06 RBC (4.30-5.90) m/uL Hgb (13.0-17.5) gm/dL Hct (39.0-53.0) % Plt Count (150-450) k/uL Lymphocytes # (Manual) (1.0-4.8) k/uL Chloride 109 H (98-107) mmol/L Carbon Dioxide 15 L (22-30) mmol/L BUN 71 H (9-20) mg/dL Creatinine 4.40 H (0.66-1.25) mg/dL Glucose 109 H (74-99) mg/dL POC Glucose (mg/dL) 119 H 115 H (70-110) mg/dL Calcium 7.6 L (8.4-10.2) mg/dL Magnesium 2.9 H (1.6-2.3) mg/dL Iron (65-175) UG/DL TIBC (228-460) UG/DL % Saturation (15.00-50.00) Transferrin (204.0-354.0) mg/dL AST 307 H (17-59) U/L ALT 162 H (4-49) U/L Alkaline Phosphatase 135 H (38-126) U/L Total Protein 5.4 L (6.3-8.2) g/dL Albumin 3.1 L (3.5-5.0) g/dL 09/08/23 Range/Units 10:01 RBC (4.30-5.90) m/uL Hgb (13.0-17.5) gm/dL Hct (39.0-53.0) % Plt Count (150-450) k/uL Lymphocytes # (Manual) (1.0-4.8) k/uL Chloride (98-107) mmol/L Carbon Dioxide (22-30) mmol/L BUN (9-20) mg/dL Creatinine (0.66-1.25) mg/dL Glucose (74-99) mg/dL POC Glucose (mg/dL) 136 H (70-110) mg/dL Calcium (8.4-10.2) mg/dL Magnesium (1.6-2.3) mg/dL Iron (65-175) UG/DL TIBC (228-460) UG/DL % Saturation (15.00-50.00) Transferrin (204.0-354.0) mg/dL AST (17-59) U/L ALT (4-49) U/L Alkaline Phosphatase (38-126) U/L Total Protein (6.3-8.2) g/dL Albumin (3.5-5.0) g/dL Assessment and Plan Assessment: * Multivessel coronary artery disease, ischemic cardiomyopathy ejection fraction 30% * s/p CABG 09/02/2023 * Transaminitis secondary to shock liver * Hypertension * Hyperlipidemia * Diabetes mellitus type 2 with HbA1c 7.4 * History of peripheral arterial disease * Bipolar disorder * History of anxiety * Patient is s/p CABG, postprocedure continue patient on aspirin, Plavix, statin, on metoprolol with holding parameters , Postprocedure intra-aortic balloon removed on 09/02 * Postprocedure continue patient on continuous insulin infusion will transition to subcu insulin based on blood glucose levels, blood glucose ranging in 108 - 132 * Post CABG patient remains on Levophed, vasopressin, Primacor, to be weaned off as tolerated * Complex patient continue management and medical ICU
[2023-09-08 16:15] LABS: Glucose,Whole Blood 133 mg/dL (70-110)
[2023-09-08 18:21] LABS: Glucose,Whole Blood 127 mg/dL (70-110)
[2023-09-08 19:59] LABS: Glucose,Whole Blood 124 mg/dL (70-110)
--- NOTE | 2023-09-08 20:20 | P.PN ---
Subjective Progress Note Date: 09/08/23 Patient is s/p off-pump CABG x 3, September 07, 2023 Patient's creatinine has been trending up. His urine output has been low he is stated oliguric. He got IV Lasix 60 mg with minimal response. Amasa-Isabell catheter shows PA systolic 50 mmHg, PA diastolic 10 mmHg, CVP 12 to 18 mmHg on average. Patient appears volume overloaded. He is on 5 mcg dobutamine drip Systolic blood pressure 110, diastolic 60s to 70s mmHg September 08, 2023 Since his CABG, patient's creatinine has been trending up. He has been in ol iguric ATN. Yesterday his creatinine was 3.54. Because his CVP was around 15 to 18 mmHg, PA systolic 50, PA diastolic 10, I gave him 3 mg of IV Bumex with some urine output but not adequate enough. This morning his creatinine has trended up to 4.4. He continues to be on dobutamine drip at 5 mcg. He was weaned off norepinephrine drip and is maintained on very low-dose vasopressin. PHYSICAL EXAMINATION S1-S2 audible, no audible murmur, regular pulse 1+ pitting edema in bilateral lower extremity Left IJ Amasa-Isabell catheter in place alert oriented Diminished breath sounds, mild crackles audible, on 2 L oxygen ASSESSMENT Status post three-vessel CABG LEONARDO with oliguric ATN, kidney function worsening over last 3 days Ischemic cardiomyopathy EF 30 to 35% Type 2 diabetes Hypertension COPD PLAN I will give him 1 dose of 4 mg IV Bumex and see if patient opens up and starts making urine. If not patient will need hemodialysis tomorrow Case discussed with nephrology team and CT surgery team. If hemodialysis is indicated tomorrow, CT surgery team will do the permacath placement. Consider weaning off vasopressin completely. If needed may use norepinephrine. Continue dobutamine drip. Keep Amasa catheter in place. Continue to monitor telemetry. Continue other cardiac medications Will closely follow Prognosis is guarded Objective - Vital Signs Vital signs: Vital Signs Temp 37.1 F L 09/07/23 16:00 Pulse 79 09/08/23 20:00 Resp 29 H 09/08/23 20:00 BP 105/52 09/08/23 20:00 Pulse Ox 99 09/08/23 20:00 FiO2 40 09/02/23 20:33 Intake & Output 09/08/23 09/08/23 09/09/23 06:59 18:59 06:59 Intake Total 774.395 684.181 18.372 Output Total 225 95 5 Balance 549.395 589.181 13.372 Intake: IV 338 336 6 Lactated Ringers 1,000 ml 260 210 @ 20 mls/hr IV .Q24H [facility] Rx#:[id number] NS cardiac output 0 60 pressure bags 78 66 6 Intake, IV Titration 436.395 48.181 12.372 Amount DOBUTamine DRIP 500 mg In 234.525 Dextrose/Water 1 250ml. bag @ 5 MCG/KG/MIN 11.925 mls/hr IV .[id number] [facility] Rx#:[id number] Insulin Regular 100 unit 45.946 24.057 12.372 In Sodium Chloride 0.9% 100 ml @ Per Protocol IV .Q0M [facility] Rx#:[id number] Norepinephrine 4 mg In 93.678 Sodium Chloride 0.9% 250 ml @ 0.02 MCG/KG/MIN 5. 979 mls/hr IV .Q24H [facility] Rx#:[id number] Vasopressin 20 unit In 62.246 24.124 Sodium Chloride 0.9% 50 ml @ 0.04 UNITS/MIN 6.12 mls/hr IV .Q8H20M [facility] Rx# :[id number] Oral 300 Output: Urine 225 95 5 Other: Voiding Method Indwelling Catheter Indwelling Catheter ABP, PAP, CO, CI - Last Documented Arterial Blood Pressure 83/58 Pulmonary Artery Pressure 39/15 Cardiac Output 4.4 Cardiac Index 2.5 - Labs CBC & Chem 7: 09/08/23 03:51 09/08/23 03:51 Labs: Abnormal Lab Results - Last 24 Hours (Table) 09/07/23 09/07/23 09/07/23 Range/Units 05:08 21:54 23:57 RBC (4.30-5.90) m/uL Hgb (13.0-17.5) gm/dL Hct (39.0-53.0) % Plt Count (150-450) k/uL Lymphocytes # (Manual) (1.0-4.8) k/uL Chloride (98-107) mmol/L Carbon Dioxide (22-30) mmol/L BUN (9-20) mg/dL Creatinine (0.66-1.25) mg/dL Glucose (74-99) mg/dL POC Glucose (mg/dL) 176 H 143 H (70-110) mg/dL Calcium (8.4-10.2) mg/dL Magnesium (1.6-2.3) mg/dL Iron 15 L (65-175) UG/DL TIBC 167 L (228-460) UG/DL % Saturation 8.98 L (15.00-50.00) Transferrin 119.0 L (204.0-354.0) mg/dL AST (17-59) U/L ALT (4-49) U/L Alkaline Phosphatase (38-126) U/L Total Protein (6.3-8.2) g/dL Albumin (3.5-5.0) g/dL 09/08/23 09/08/23 09/08/23 Range/Units 01:56 03:51 03:51 RBC 2.70 L (4.30-5.90) m/uL Hgb 8.7 L (13.0-17.5) gm/dL Hct 25.9 L (39.0-53.0) % Plt Count 85 L (150-450) k/uL Lymphocytes # (Manual) 0.54 L (1.0-4.8) k/uL Chloride 109 H (98-107) mmol/L Carbon Dioxide 15 L (22-30) mmol/L BUN 71 H (9-20) mg/dL Creatinine 4.40 H (0.66-1.25) mg/dL Glucose 109 H (74-99) mg/dL POC Glucose (mg/dL) 125 H (70-110) mg/dL Calcium 7.6 L (8.4-10.2) mg/dL Magnesium 2.9 H (1.6-2.3) mg/dL Iron (65-175) UG/DL TIBC (228-460) UG/DL % Saturation (15.00-50.00) Transferrin (204.0-354.0) mg/dL AST 307 H (17-59) U/L ALT 162 H (4-49) U/L Alkaline Phosphatase 135 H (38-126) U/L Total Protein 5.4 L (6.3-8.2) g/dL Albumin 3.1 L (3.5-5.0) g/dL 09/08/23 09/08/23 09/08/23 Range/Units 03:54 06:06 10:01 RBC (4.30-5.90) m/uL Hgb (13.0-17.5) gm/dL Hct (39.0-53.0) % Plt Count (150-450) k/uL Lymphocytes # (Manual) (1.0-4.8) k/uL Chloride (98-107) mmol/L Carbon Dioxide (22-30) mmol/L BUN (9-20) mg/dL Creatinine (0.66-1.25) mg/dL Glucose (74-99) mg/dL POC Glucose (mg/dL) 119 H 115 H 136 H (70-110) mg/dL Calcium (8.4-10.2) mg/dL Magnesium (1.6-2.3) mg/dL Iron (65-175) UG/DL TIBC (228-460) UG/DL % Saturation (15.00-50.00) Transferrin (204.0-354.0) mg/dL AST (17-59) U/L ALT (4-49) U/L Alkaline Phosphatase (38-126) U/L Total Protein (6.3-8.2) g/dL Albumin (3.5-5.0) g/dL 09/08/23 09/08/23 09/08/23 Range/Units 11:59 16:14 18:20 RBC (4.30-5.90) m/uL Hgb (13.0-17.5) gm/dL Hct (39.0-53.0) % Plt Count (150-450) k/uL Lymphocytes # (Manual) (1.0-4.8) k/uL Chloride (98-107) mmol/L Carbon Dioxide (22-30) mmol/L BUN (9-20) mg/dL Creatinine (0.66-1.25) mg/dL Glucose (74-99) mg/dL POC Glucose (mg/dL) 159 H 133 H 127 H (70-110) mg/dL Calcium (8.4-10.2) mg/dL Magnesium (1.6-2.3) mg/dL Iron (65-175) UG/DL TIBC (228-460) UG/DL % Saturation (15.00-50.00) Transferrin (204.0-354.0) mg/dL AST (17-59) U/L ALT (4-49) U/L Alkaline Phosphatase (38-126) U/L Total Protein (6.3-8.2) g/dL Albumin (3.5-5.0) g/dL 09/08/23 Range/Units 19:58 RBC (4.30-5.90) m/uL Hgb (13.0-17.5) gm/dL Hct (39.0-53.0) % Plt Count (150-450) k/uL Lymphocytes # (Manual) (1.0-4.8) k/uL Chloride (98-107) mmol/L Carbon Dioxide (22-30) mmol/L BUN (9-20) mg/dL Creatinine (0.66-1.25) mg/dL Glucose (74-99) mg/dL POC Glucose (mg/dL) 124 H (70-110) mg/dL Calcium (8.4-10.2) mg/dL Magnesium (1.6-2.3) mg/dL Iron (65-175) UG/DL TIBC (228-460) UG/DL % Saturation (15.00-50.00) Transferrin (204.0-354.0) mg/dL AST (17-59) U/L ALT (4-49) U/L Alkaline Phosphatase (38-126) U/L Total Protein (6.3-8.2) g/dL Albumin (3.5-5.0) g/dL
[2023-09-08 22:16] LABS: Glucose,Whole Blood 110 mg/dL (70-110)
[2023-09-09 00:02] LABS: Glucose,Whole Blood 121 mg/dL (70-110)
[2023-09-09 01:58] LABS: Glucose,Whole Blood 150 mg/dL (70-110)
[2023-09-09 04:00] LABS: HCT 24.9 % (39.0-53.0); HGB 8.1 gm/dL (13.0-17.5); MCH 30.9 pg (25.0-35.0); MCHC 32.5 g/dL (31.0-37.0); MCV 94.9 fL (80.0-100.0); Mean Platelet Volume 10.1; Platelet Count 105 k/uL (150-450); RBC 2.62 m/uL (4.30-5.90); RDW 15.5 % (11.5-15.5); WBC 6.8 k/uL (3.8-10.6)
[2023-09-09 04:17] LABS: ALT 155 U/L (4-49); AST 300 U/L (17-59); African American GFR (CKD) 13 (>60 ml/min/1.73 sqM); Albumin 2.8 g/dL (3.5-5.0); Alkaline Phosphatase 149 U/L (38-126); Anion Gap 16 mmol/L; Blood Urea Nitrogen 79 mg/dL (9-20); Calcium 7.6 mg/dL (8.4-10.2); Carbon Dioxide 12 mmol/L (22-30); Chloride 107 mmol/L (98-107); Glucose 118 mg/dL (74-99); Magnesium 2.8 mg/dL (1.6-2.3); Non-African American GFR(CKD) 11 (>60 ml/min/1.73 sqM); Potassium 4.6 mmol/L (3.5-5.1); Sodium 135 mmol/L (137-145); Total Bilirubin 1.2 mg/dL (0.2-1.3); Total Protein 5.2 g/dL (6.3-8.2)
[2023-09-09 04:47] LABS: Glucose,Whole Blood 119 mg/dL (70-110)
[2023-09-09 06:07] LABS: Glucose,Whole Blood 119 mg/dL (70-110)
--- NOTE | 2023-09-09 08:00 | P.PN ---
Subjective Progress Note Date: 09/09/23 Principal diagnosis: Triple-vessel coronary artery disease with left main disease. Previous medical history of hypertension, hyperlipidemia, diabetes mellitus, chronic systolic he art failure with reduced ejection fraction/ischemic cardiomyopathy, bipolar disorder, obesity, peripheral vascular disease, developmental delay, previous tobacco dependence, noncompliance POD #8 right heart catheterization, ultrasound guided access, placement of intra-aortic balloon pump from right femoral access performed by Dr. Monreal. POD #7 on pump coronary artery bypass grafting x 3, left internal thoracic artery (in-situ) sequential to diagonal and left anterior descending coronary artery, right greater saphenous vein from aorta to obtuse marginal artery #1, left atrial appendage ligation with #35mm AtriClip, endoscopic bilateral greater saphenous vein harvest, graft flow measurements using the [employer] flow meter system, trans-esophageal echo Postoperative acute blood loss anemia and thrombocytopenia, expected given hemodilution and cardiopulmonary bypass LEONARDO Elevated transaminases, likely due to hypoperfusion, trending down Cardiogenic shock The patient was seen and examined sitting up in recliner this morning. He is in no acute distress. Currently in sinus rhythm, blood pressure stable, off vasopressin, remains on dobutamine. Remains on 2 L nasal cannula with oxygen saturation in the high 90s, just placed to room air with oxygen saturation 97%. Patient continues to refuse to participate in his care, very minimal effort. He did try his IS this morning but with very poor effort, nursing unable to get him to stand and needed karin lift to get him in recliner. Right internal jugular [place]/Cordis remains. Chest x-ray, labs reviewed. Kidney function continues to worsen, no change in urine output despite given IV lasix and IV bumex yesterday. Patient will need dialysis. Objective - Vital Signs Vital signs: Vital Signs Temp 37.1 F L 09/07/23 16:00 Pulse 79 09/09/23 07:00 Resp 31 H 09/09/23 07:00 BP 101/51 09/09/23 07:00 Pulse Ox 99 09/09/23 07:00 FiO2 40 09/02/23 20:33 Intake & Output 09/08/23 09/09/23 09/09/23 18:59 06:59 18:59 Intake Total 684.181 349.329 128.591 Output Total 95 40 Balance 589.181 309.329 128.591 Weight 88.3 kg Intake: IV 336 78 Lactated Ringers 1,000 ml 210 @ 20 mls/hr IV .Q24H [facility] Rx#:[id number] NS cardiac output 60 pressure bags 66 78 Intake, IV Titration 48.181 271.329 128.591 Amount DOBUTamine DRIP 500 mg In 241.282 128.591 Dextrose/Water 1 250ml. bag @ 5 MCG/KG/MIN 11.925 mls/hr IV .[id number] [facility] Rx#:[id number] Insulin Regular 100 unit 24.057 30.047 In Sodium Chloride 0.9% 100 ml @ Per Protocol IV .Q0M [facility] Rx#:[id number] Vasopressin 20 unit In 24.124 Sodium Chloride 0.9% 50 ml @ 0.04 UNITS/MIN 6.12 mls/hr IV .Q8H20M [facility] Rx# :[id number] Oral 300 Output: Urine 95 40 Other: Voiding Method Indwelling Catheter Indwelling Catheter ABP, PAP, CO, CI - Last Documented Arterial Blood Pressure 83/58 Pulmonary Artery Pressure 42/15 Cardiac Output 4.4 Cardiac Index 2.5 - Exam CONSTITUTIONAL: Appears comfortable, no acute distress RESPIRATORY: Lungs sounds diminished bilaterally. Respirations even, nonlabored. Currently on room air with oxygen saturation 97%. Poor effort with incentive spirometry, achieving less than 500 mL CARDIOVASCULAR: S1, S2 present. Regular rate and rhythm, sinus rhythm on telemetry. Sternum stable. Palpable peripheral pulses bilaterally. Generalized edema present. No calf pain or tenderness noted. Heart hugger, antiembolism stockings, SCDs present. GASTROINTESTINAL: Abdomen soft, nontender, nondistended. Active bowel sounds present 4 quadrants. Tolerating minimal liquids GENITOURINARY: Hobson present, minimal output 135 mL in the last 24 hours INTEGUMENTARY: Skin is warm and dry. Anterior chest incision well approximated. Bilateral lower extremity EVH sites well approximated without redness or drainage. NEUROLOGIC: Cranial nerves II through XII intact MUSKULOSKELETAL: Able to move all extremities, strength equal bilaterally, generalized weakness present although difficult to assess as patient isn't cooperating with care PSYCHIATRIC: Alert and oriented INVASIVE LINES AND TUBES: A/V epicardial pacemaker wires present, grounded. Right internal jugular [place]/Cordis present. Last CO/CI 4.4/2.5, PA 40/17, CVP 15 - Allied health notes Allied health notes reviewed: nursing - Labs CBC & Chem 7: 09/09/23 03:46 09/09/23 03:46 Labs: Abnormal Lab Results - Last 24 Hours (Table) 09/08/23 09/08/23 09/08/23 Range/Units 10:01 11:59 16:14 RBC (4.30-5.90) m/uL Hgb (13.0-17.5) gm/dL Hct (39.0-53.0) % Plt Count (150-450) k/uL Sodium (137-145) mmol/L Carbon Dioxide (22-30) mmol/L BUN (9-20) mg/dL Creatinine (0.66-1.25) mg/dL Glucose (74-99) mg/dL POC Glucose (mg/dL) 136 H 159 H 133 H (70-110) mg/dL Calcium (8.4-10.2) mg/dL Phosphorus (2.5-4.5) mg/dL Magnesium (1.6-2.3) mg/dL AST (17-59) U/L ALT (4-49) U/L Alkaline Phosphatase (38-126) U/L Total Protein (6.3-8.2) g/dL Albumin (3.5-5.0) g/dL 09/08/23 09/08/23 09/09/23 Range/Units 18:20 19:58 00:01 RBC (4.30-5.90) m/uL Hgb (13.0-17.5) gm/dL Hct (39.0-53.0) % Plt Count (150-450) k/uL Sodium (137-145) mmol/L Carbon Dioxide (22-30) mmol/L BUN (9-20) mg/dL Creatinine (0.66-1.25) mg/dL Glucose (74-99) mg/dL POC Glucose (mg/dL) 127 H 124 H 121 H (70-110) mg/dL Calcium (8.4-10.2) mg/dL Phosphorus (2.5-4.5) mg/dL Magnesium (1.6-2.3) mg/dL AST (17-59) U/L ALT (4-49) U/L Alkaline Phosphatase (38-126) U/L Total Protein (6.3-8.2) g/dL Albumin (3.5-5.0) g/dL 09/09/23 09/09/23 09/09/23 Range/Units 01:56 03:46 03:46 RBC 2.62 L (4.30-5.90) m/uL Hgb 8.1 L (13.0-17.5) gm/dL Hct 24.9 L (39.0-53.0) % Plt Count 105 L (150-450) k/uL Sodium 135 L (137-145) mmol/L Carbon Dioxide 12 L (22-30) mmol/L BUN 79 H (9-20) mg/dL Creatinine 5.27 H (0.66-1.25) mg/dL Glucose 118 H (74-99) mg/dL POC Glucose (mg/dL) 150 H (70-110) mg/dL Calcium 7.6 L (8.4-10.2) mg/dL Phosphorus 7.0 H (2.5-4.5) mg/dL Magnesium 2.8 H (1.6-2.3) mg/dL AST 300 H (17-59) U/L ALT 155 H (4-49) U/L Alkaline Phosphatase 149 H (38-126) U/L Total Protein 5.2 L (6.3-8.2) g/dL Albumin 2.8 L (3.5-5.0) g/dL 09/09/23 09/09/23 Range/Units 04:46 06:06 RBC (4.30-5.90) m/uL Hgb (13.0-17.5) gm/dL Hct (39.0-53.0) % Plt Count (150-450) k/uL Sodium (137-145) mmol/L Carbon Dioxide (22-30) mmol/L BUN (9-20) mg/dL Creatinine (0.66-1.25) mg/dL Glucose (74-99) mg/dL POC Glucose (mg/dL) 119 H 119 H (70-110) mg/dL Calcium (8.4-10.2) mg/dL Phosphorus (2.5-4.5) mg/dL Magnesium (1.6-2.3) mg/dL AST (17-59) U/L ALT (4-49) U/L Alkaline Phosphatase (38-126) U/L Total Protein (6.3-8.2) g/dL Albumin (3.5-5.0) g/dL - Imaging and Cardiology Chest x-ray: image reviewed Assessment and Plan Assessment: Triple-vessel coronary artery disease with left main disease, status post three- vessel on pump CABG History of hypertension, currently hypotensive from vasoplegia, remains on IV vaso and levo Hyperlipidemia, treated, cholesterol 135, LDL 60, triglycerides 178 Diabetes mellitus, preoperative hemoglobin A1c 7.4% Chronic systolic heart failure with reduced ejection fraction/ischemic cardiomyopathy, EF 30-35%, preoperative placement of intra-aortic balloon pump Bipolar disorder Obesity Peripheral vascular disease, right FAIZAN 0.95, left FAIZAN 0.97 Developmental delay Previous tobacco dependence Moderate COPD, preoperative FEV1 55% of predicted Noncompliance Postoperative acute blood loss anemia and thrombocytopenia, expected Incidental finding of tiny left pneumothorax, not a complication, resolved LEONARDO, elevated transaminases, cardiogenic shock, likely from hypoperfusion Plan: Continue aspirin, Plavix and beta-feliberto with hold parameters. Statin discontinued due to elevated transaminases, will restart when able Continue dobutamine, cut in half Encourage use of incentive spirometry 10 times every hour while awake. Bronchodilators per pulmonology Increase activity, ambulate as tolerated. PT/OT/cardiac rehab following, patient resistant to participate Will monitor daily labs and chest x-rays Consult placed to vascular surgery for temp dialysis cath placement for patient to begin dialysis today Patient may need small dose pressors while on dialysis Avoid nephrotoxins Pain control per current medication regimen. Avoid to Toradol. No narcotics Continue Hob[place] catheter for another 24 hours, continue to record strict accurate intake and output Insulin management per internal medicine GI/DVT prophylaxis Continue [place]-Isabell catheter with hemodynamic monitoring until dobutamine off Daily weights Encourage oral intake, supplements ordered Patient needs continued encouragement to participate in his care, unfortunately he has a history of refusal, was discussed at length with the patient and his brother that refusal to participate in his care could result in significant complications Prognosis remains very guarded More recommendations to follow based on patient's clinical course.
[2023-09-09 08:21] LABS: Glucose,Whole Blood 126 mg/dL (70-110)
--- NOTE | 2023-09-09 08:32 | XR ---
EXAMINATION TYPE: XR chest 1V portable DATE OF EXAM: 09/09/2023 5:50 AM CLINICAL INDICATION:Male, 63 years old with history of post cardiac surgery; [facility] COMPARISON: Chest radiographs from 09/08/2023 TECHNIQUE: XR chest 1V portable Frontal view of the chest. FINDINGS: Lungs/Pleura: No evidence of focal consolidation or pneumothorax. Blunting of the costophrenic angles is present. Pulmonary vascularity: Unremarkable. Heart/mediastinum: Cardiomediastinal silhouette is enlarged and stable. Left atrial appendage occlusi on device is present. Musculoskeletal: No acute osseous pathology. Midline sternotomy wires are noted. Other findings: None Lines/Tubes: There is a [place]-Isabell catheter with tip projecting over the spine. IMPRESSION: Stable exam with cardiomegaly and bilateral pleural effusion.
[2023-09-09] MEDS: SODIUM FERRIC GLUCONAT-SUCROSE 125 MG in SODIUM CHLORIDE 0.9% 100 ML IVPB SCH (09:18)
--- NOTE | 2023-09-09 11:14 | P.PN ---
Subjective patient is seen for follow-up for acute kidney injury, oliguric hemodynamic ATN. Status post coronary artery bypass surgery on 09/02/2023 Patient is maintained on dobutamine EF is 20-25%. Patient remains oliguric with no response to high-dose loop diuretics. off of levo fed scheduled for hemodialysis today. Objective - Vital Signs Vital signs: Vital Signs Temp 37.1 F L 09/07/23 16:00 Pulse 78 09/09/23 10:00 Resp 27 H 09/09/23 10:00 BP 95/54 09/09/23 10:00 Pulse Ox 94 L 09/09/23 10:00 FiO2 40 09/02/23 20:33 Intake & Output 09/08/23 09/09/23 09/09/23 18:59 06:59 18:59 Intake Total 684.181 349.329 191.964 Output Total 95 40 20 Balance 589.181 309.329 171.964 Weight 88.3 kg Intake: IV 336 78 56 Lactated Ringers 1,000 ml 210 30 @ 20 mls/hr IV .Q24H ZAID Rx#:[id number] NS cardiac output 60 20 pressure bags 66 78 6 Intake, IV Titration 48.181 271.329 135.964 Amount DOBUTamine DRIP 500 mg In 241.282 128.591 Dextrose/Water 1 250ml. bag @ 2.5 MCG/KG/MIN 5. 963 mls/hr IV .Q24H ZAID Rx#:[id number] Insulin Regular 100 unit 24.057 30.047 7.373 In Sodium Chloride 0.9% 100 ml @ Per Protocol IV .Q0M [facility]AID Rx#:[id number] Vasopressin 20 unit In 24.124 Sodium Chloride 0.9% 50 ml @ 0.04 UNITS/MIN 6.12 mls/hr IV .Q8H20M [facility]AID Rx# :[id number] Oral 300 Output: Urine 95 40 20 Other: Voiding Method Indwelling Catheter Indwelling Catheter Indwelling Catheter ABP, PAP, CO, CI - Last Documented Arterial Blood Pressure 83/58 Pulmonary Artery Pressure 39/14 Cardiac Output 4.4 Cardiac Index 2.5 - Exam patient is sleeping but arousable. No acute distress Examination of the heart S1 and S2 Examination of the lungs decreased breath sounds at the bases Abdomen is soft Examination of lower extremities shows no significant edema - Labs CBC & Chem 7: 09/09/23 03:46 09/09/23 03:46 Labs: Abnormal Lab Results - Last 24 Hours (Table) 09/08/23 09/08/23 09/08/23 Range/Units 11:59 16:14 18:20 RBC (4.30-5.90) m/uL Hgb (13.0-17.5) gm/dL Hct (39.0-53.0) % Plt Count (150-450) k/uL Sodium (137-145) mmol/L Carbon Dioxide (22-30) mmol/L BUN (9-20) mg/dL Creatinine (0.66-1.25) mg/dL Glucose (74-99) mg/dL POC Glucose (mg/dL) 159 H 133 H 127 H (70-110) mg/dL Calcium (8.4-10.2) mg/dL Phosphorus (2.5-4.5) mg/dL Magnesium (1.6-2.3) mg/dL AST (17-59) U/L ALT (4-49) U/L Alkaline Phosphatase (38-126) U/L Total Protein (6.3-8.2) g/dL Albumin (3.5-5.0) g/dL 09/08/23 09/09/23 09/09/23 Range/Units 19:58 00:01 01:56 RBC (4.30-5.90) m/uL Hgb (13.0-17.5) gm/dL Hct (39.0-53.0) % Plt Count (150-450) k/uL Sodium (137-145) mmol/L Carbon Dioxide (22-30) mmol/L BUN (9-20) mg/dL Creatinine (0.66-1.25) mg/dL Glucose (74-99) mg/dL POC Glucose (mg/dL) 124 H 121 H 150 H (70-110) mg/dL Calcium (8.4-10.2) mg/dL Phosphorus (2.5-4.5) mg/dL Magnesium (1.6-2.3) mg/dL AST (17-59) U/L ALT (4-49) U/L Alkaline Phosphatase (38-126) U/L Total Protein (6.3-8.2) g/dL Albumin (3.5-5.0) g/dL 09/09/23 09/09/23 09/09/23 Range/Units 03:46 03:46 04:46 RBC 2.62 L (4.30-5.90) m/uL Hgb 8.1 L (13.0-17.5) gm/dL Hct 24.9 L (39.0-53.0) % Plt Count 105 L (150-450) k/uL Sodium 135 L (137-145) mmol/L Carbon Dioxide 12 L (22-30) mmol/L BUN 79 H (9-20) mg/dL Creatinine 5.27 H (0.66-1.25) mg/dL Glucose 118 H (74-99) mg/dL POC Glucose (mg/dL) 119 H (70-110) mg/dL Calcium 7.6 L (8.4-10.2) mg/dL Phosphorus 7.0 H (2.5-4.5) mg/dL Magnesium 2.8 H (1.6-2.3) mg/dL AST 300 H (17-59) U/L ALT 155 H (4-49) U/L Alkaline Phosphatase 149 H (38-126) U/L Total Protein 5.2 L (6.3-8.2) g/dL Albumin 2.8 L (3.5-5.0) g/dL 09/09/23 09/09/23 Range/Units 06:06 08:20 RBC (4.30-5.90) m/uL Hgb (13.0-17.5) gm/dL Hct (39.0-53.0) % Plt Count (150-450) k/uL Sodium (137-145) mmol/L Carbon Dioxide (22-30) mmol/L BUN (9-20) mg/dL Creatinine (0.66-1.25) mg/dL Glucose (74-99) mg/dL POC Glucose (mg/dL) 119 H 126 H (70-110) mg/dL Calcium (8.4-10.2) mg/dL Phosphorus (2.5-4.5) mg/dL Magnesium (1.6-2.3) mg/dL AST (17-59) U/L ALT (4-49) U/L Alkaline Phosphatase (38-126) U/L Total Protein (6.3-8.2) g/dL Albumin (3.5-5.0) g/dL Assessment and Plan Assessment: 1. Acute kidney injury secondary to ATN secondary to hypotension/cardiogenic shock. Baseline creatinine near 1 and is up to 5.2 today. Oliguric, with no response to high-dose loop diuretics. UA fairly benign. starting renal replacement therapy today. 2. Coronary artery disease status post CABG x 3 September 02, 2023. 3. Shock maintained on Levophed, vasopressin, dopamine and dobutamine. 4. Cardiomyopathy with reduced ejection fraction. EF 25-20% 5. Metabolic acidosis secondary to acute kidney injury. 6. Cardiomyopathy with EF 20-25% Plan: vascular surgery consult and dialysis catheter placement today. We will plan for first treatment of hemodialysis today. Expect improvement in acidosis with hemodialysis today. Sodium bicarb IV push 1
[2023-09-09] MEDS: VASOPRESSIN 20 UNIT in SODIUM CHLORIDE 0.9% 50 ML IV SCH ×2 (11:23→23:01)
[2023-09-09] MEDS: SODIUM BICARB 8.4% 50 ML SYR (1 MEQ/ML) IV STA (11:24)
[2023-09-09 11:32] LABS: Glucose,Whole Blood 141 mg/dL (70-110)
--- NOTE | 2023-09-09 12:12 | P.PN ---
Subjective Progress Note Date: 09/09/23 Principal diagnosis: Coronary artery disease. 63-year-old male patient, was brought into the intensive care unit after having an antibiotic balloon pump inserted this morning and this was done in preparation for coronary artery bypass surgery. The patient is known to have CAD, chronic CHF with impaired ejection fraction of 30 to 35%. The patient has been hospitalized with [facility] and an earlier cardiac catheterization from April 2023 showed a 70% left main, 70% proximal LAD, 30% circumflex and 70% obtuse marginal 1 and 60% mid RCA. The patient has impaired LV function with an EF around 30 to 35% along with mild to moderate MR, and severe pulm hypertension. The patient is scheduled to undergo coronary artery bypass surgery tomorrow. He is currently on room air oxygen. Free of any chest pain. Hemodynamically stable. Augmented blood pressure is around 80. He has some developmental delay and his other comorbid conditions include diabetes rachel litus type 2, hypertension and hyperlipidemia. Blood work shows a white cell count of 9, hemoglobin 11.8, platelet count of 206, normal coagulation profile, BUN of 27 with a creatinine of 1 and sodium levels at 138. LFTs are normal. His CAT scan of the chest that was done on 07/16/2023 showed cardiomegaly with small right and left-sided pleural effusion. This is consistent with CHF. No mediastinal lymphadenopathy. The patient is seen today September 02, 2023 in follow-up in the intensive care unit following surgery. He had undergone an on pump coronary artery bypass grafting x 3 with a left internal thoracic artery sequential to diagonal and the LAD. Right SVG from the aorta to the obtuse marginal #1. Left atrial appendage ligation and clipping. He remains intubated on the mechanical ventilator and assist-control mode at a rate of 14, tidal volume 500, FiO2 40% and a PEEP of 10. He remains on propofol at 20 mcg/kg/min. Lactated Ringer's at 50 MLS per hour. He is requiring vasopressin at 0.04 units/min. Insulin drip at 1 unit/h. Norepinephrine at 0.05 mcg/kg/min. Milrinone at 0.25 mcg/kg/min intra-aortic balloon pump remains in place. Mediastinal and right and left split chest tubes remain in place. Cardiac output is 4.7. Cardiac index 2.6. Received albumin. Receiving cefazolin. Heparin for DVT prophylaxis. White count 11.7. Hemoglobin 11.5. Platelets 84,000. INR 1.4. Sodium 141. Potassium 3.7. Bicarb 22. BUN 22. Creatinine 0.88. Glucose 101. X-ray no overt failure, pneumothorax or sizable consolidation. ABG's are pending. Patient was today on 09/03/2023, patient was extubated last night uneventfully, patient is now on 2 L nasal cannula, his intra-aortic balloon has been removed today patient remains on pressors and on inotropes. Still requiring norepinephrine at 0.02 mcg/kg/min still on milrinone 0.25 mcg/kg/min and on 0.04 units/min of vasopressin. Cardiac output today is 6.5 cardiac index is 3.7 PA pressure 41/17 CVP of 15. Continues to have mediastinal left and right-sided pleural chest tubes in place, had about 780 mL output since surgery. Chest x- ray is showing mostly postoperative changes labs were all reviewed. WBC count i s 15.2 hemoglobin 9.2. Basic metabolic profile is normal, creatinine 1.10 up from 0.88 yesterday Reevaluated today on 09/04/2023, patient remains in the ICU on 3 L nasal cannula, insulin drip at 1.5 units/h still receiving norepinephrine at 0.08 mcg/kg/min milrinone 0.1 mcg/kg/min vasopressin at 0.03 units/min. Cardiac output is 5.0 cardiac index 2.8, patient remains marginal at best, he is sitting at the bedside chair, does not seem to be in distress, on 3 L nasal cannula. Chest x- ray showed no evidence of pulmonary edema no evidence of pneumonia he does have a small tiny apical left pneumothorax. WBC count is 17.7 hemoglobin 9.4. Basic metabolic profile is normal however his BUN is 34 creatinine is 1.52, apparently the patient does have sustained some acute kidney injury most likely related to hypotension/acute tubular necrosis. Patient was reevaluated today on 09/05/2023, remains in the ICU, still requiring multiple drips, he is on dopamine at 2.5 mcg/kg/min norepinephrine at 0.03 mcg/kg/min vasopressin 0.03 units/min patient is also on insulin at 1.5 units/h. Cardiac index remains low at 1.9 cardiac output is relatively low at 3.4. Pulmonary artery pressure 44/18, CVP is 12. Patient does not seem to be very much motivated, he is achieving less than 500 cc on incentive spirometry. The last patient is on 2 L nasal cannula, refusing to participate in physical activity, refusing incentive spirometry, chest tubes, remain in place, prognosis remains guarded. Chest x-ray showed mostly bibasilar atelectasis, mild interstitial prominence, I doubt left-sided pneumothorax as documented by radiology Reevaluate today on 09/06/2023, patient is basically about the same. Patient is in the ICU, he is on multiple drips including higher dose of inotrope, milrinone 0.25 he is on norepinephrine at 0.02 mcg/kg/min vasopressin at 0.03 units/min dopamine at 2.5 mcg/kg/min dobutamine at 2.5 mcg/kg/min insulin at 2.5 units an hour, urine output is low, patient received albumin cardiac index is 2.9 today cardiac output is 5.9. His renal functioning is getting a bit worse, patient apparently the patient is developing what seems to be a cardiorenal syndrome. Chest x-ray is showing atelectasis and bibasilar pleural effusions. Patient is not motivated, does not seem to be interested in getting motivated. And been doing poorly with incentive spirometry Reevaluate today on 09/06, patient is basically about the same, he is now postoperative day #5, sitting at the bedside chair, patient is not motivated what bit remains on multiple inotropes and pressors, patient is receiving dopamine at 2.5 mcg/kg/min dobutamine at 5 mcg/kg/min norepinephrine at 0.06 mcg/kg/min vasopressin at 0.03 units/min and he is also on insulin at 3.5 units/h today he is off milrinone. Cardiac output is 3.8 cardiac index is 2.1 PA pressure 43/15 CVP is 13. Chest x-ray showed mostly atelectasis at the bases. No clear-cut evidence of pulmonary edema. Patient is maintained on 2 L nasal cannula, again the patient is doing extremely poorly with incentive spirometry and does not seem to be motivated at all. Renal functioning seems to be getting worse, his BUN is 63 creatinine 3.54, at this rate I am quite concerned with the patient may end up requiring hemodialysis. This is being addressed by nephrology on the case. Liver enzymes are improving Today on 09/08/2023, patient is now postoperative day #6. Patient is still requiring dobutamine at 0.5 mcg/kg/min, still requiring vasopressin at 0.02 units/min, his norepinephrine is presently on hold, and milrinone was disconti nued. Still on insulin at 3 units/h. Surprisingly the patient is not developing congestive heart failure, but he is developing worsening renal failure, and he may end up requiring renal replacement therapy. His PA pressure 40/18, his cardiac output is 3.9 cardiac index is 2.2 chest x-ray is showing bibasilar atelectasis and small left pleural effusion with a small right pleural effusion [place]-Isabell remains in place WBC count is 6 hemoglobin 8.7 basic metabolic profile is normal except for bicarb of 15 and again worsening renal profile BUN is up to 71 creatinine 4.40 Progress note dated September 09, 2023. This is a 63-year-old male, who was seen today in room 266. The patient is status post three-vessel bypass grafting. He went to the operating room on September 01. He is currently on room air. He is receiving insulin at 2 units an hour. In addition, the patient is getting lactated Ringer's at 30 cc an hour, and dobutamine at 2.5 mcg/kg/min. The patient will have hemodialysis for the f irst time today. Current labs include a white count 6.8, hemoglobin 8.1, hematocrit 24.9, and a platelet count of 105,000. Sodium 135, potassium 4.6, chlorides 107, CO2 12, anion gap 16, BUN 79, creatinine 5.27. Glucose is 141. Calcium 7.6. AST is 300. ALT is 155. Albumin is 2.8. Chest x-ray shows cardiomegaly, with bilateral pleural effusions. Objective - Vital Signs Vital signs: Vital Signs Temp 37.1 F L 09/07/23 16:00 Pulse 68 09/09/23 12:00 Resp 33 H 09/09/23 12:00 BP 101/66 09/09/23 12:00 Pulse Ox 96 09/09/23 12:00 FiO2 40 09/02/23 20:33 Intake & Output 09/08/23 09/09/23 09/09/23 18:59 06:59 18:59 Intake Total 684.181 349.329 307.834 Output Total 95 40 35 Balance 589.181 309.329 272.834 Weight 88.3 kg Intake: IV 336 78 164 Lactated Ringers 1,000 ml 210 120 @ 20 mls/hr IV .Q24H [facility]AID Rx#:[id number] NS cardiac output 60 20 pressure bags 66 78 24 Intake, IV Titration 48.181 271.329 143.834 Amount DOBUTamine DRIP 500 mg In 241.282 128.591 Dextrose/Water 1 250ml. bag @ 2.5 MCG/KG/MIN 5. 963 mls/hr IV .Q24H ZAID Rx#:[id number] Insulin Regular 100 unit 24.057 30.047 15.243 In Sodium Chloride 0.9% 100 ml @ Per Protocol IV .Q0M [facility]AID Rx#:[id number] Vasopressin 20 unit In 24.124 Sodium Chloride 0.9% 50 ml @ 0.04 UNITS/MIN 6.12 mls/hr IV .Q8H20M [facility]AID Rx# :[id number] Oral 300 Output: Urine 95 40 35 Other: Voiding Method Indwelling Catheter Indwelling Catheter Indwelling Catheter ABP, PAP, CO, CI - Last Documented Arterial Blood Pressure 83/58 Pulmonary Artery Pressure 40/16 Cardiac Output 3.4 Cardiac Index 1.9 - Exam No acute distress, oriented 3. Currently on room air. HEENT examination is grossly unremarkable. Mucous membranes are moist. No oral lesions. Neck supple. Full range of motion. No adenopathy thyromegaly or neck vein distention. Cardiovascular examination reveals regular rhythm rate. S1-S2 normal. No S3 or S4. No discernible murmur noted. Heart sounds are distant. Heart rate 72 bpm. Lungs reveal scattered rhonchi. No wheezes or crackles. Breath sounds equal bilaterally. Saturation is 96% on room air. Abdomen soft, but obese, with bowel sounds. No masses or tenderness. Extremities are intact. No cyanosis clubbing or edema. Skin is without rash or lesion. Neurologic examination is brief but nonfocal. - Labs CBC & Chem 7: 09/09/23 03:46 09/09/23 03:46 Labs: Abnormal Lab Results - Last 24 Hours (Table) 09/08/23 09/08/23 09/08/23 Range/Units 16:14 18:20 19:58 RBC (4.30-5.90) m/uL Hgb (13.0-17.5) gm/dL Hct (39.0-53.0) % Plt Count (150-450) k/uL Sodium (137-145) mmol/L Carbon Dioxide (22-30) mmol/L BUN (9-20) mg/dL Creatinine (0.66-1.25) mg/dL Glucose (74-99) mg/dL POC Glucose (mg/dL) 133 H 127 H 124 H (70-110) mg/dL Calcium (8.4-10.2) mg/dL Phosphorus (2.5-4.5) mg/dL Magnesium (1.6-2.3) mg/dL AST (17-59) U/L ALT (4-49) U/L Alkaline Phosphatase (38-126) U/L Total Protein (6.3-8.2) g/dL Albumin (3.5-5.0) g/dL 09/09/23 09/09/23 09/09/23 Range/Units 00:01 01:56 03:46 RBC 2.62 L (4.30-5.90) m/uL Hgb 8.1 L (13.0-17.5) gm/dL Hct 24.9 L (39.0-53.0) % Plt Count 105 L (150-450) k/uL Sodium (137-145) mmol/L Carbon Dioxide (22-30) mmol/L BUN (9-20) mg/dL Creatinine (0.66-1.25) mg/dL Glucose (74-99) mg/dL POC Glucose (mg/dL) 121 H 150 H (70-110) mg/dL Calcium (8.4-10.2) mg/dL Phosphorus (2.5-4.5) mg/dL Magnesium (1.6-2.3) mg/dL AST (17-59) U/L ALT (4-49) U/L Alkaline Phosphatase (38-126) U/L Total Protein (6.3-8.2) g/dL Albumin (3.5-5.0) g/dL 09/09/23 09/09/23 09/09/23 Range/Units 03:46 04:46 06:06 RBC (4.30-5.90) m/uL Hgb (13.0-17.5) gm/dL Hct (39.0-53.0) % Plt Count (150-450) k/uL Sodium 135 L (137-145) mmol/L Carbon Dioxide 12 L (22-30) mmol/L BUN 79 H (9-20) mg/dL Creatinine 5.27 H (0.66-1.25) mg/dL Glucose 118 H (74-99) mg/dL POC Glucose (mg/dL) 119 H 119 H (70-110) mg/dL Calcium 7.6 L (8.4-10.2) mg/dL Phosphorus 7.0 H (2.5-4.5) mg/dL Magnesium 2.8 H (1.6-2.3) mg/dL AST 300 H (17-59) U/L ALT 155 H (4-49) U/L Alkaline Phosphatase 149 H (38-126) U/L Total Protein 5.2 L (6.3-8.2) g/dL Albumin 2.8 L (3.5-5.0) g/dL 09/09/23 09/09/23 Range/Units 08:20 11:31 RBC (4.30-5.90) m/uL Hgb (13.0-17.5) gm/dL Hct (39.0-53.0) % Plt Count (150-450) k/uL Sodium (137-145) mmol/L Carbon Dioxide (22-30) mmol/L BUN (9-20) mg/dL Creatinine (0.66-1.25) mg/dL Glucose (74-99) mg/dL POC Glucose (mg/dL) 126 H 141 H (70-110) mg/dL Calcium (8.4-10.2) mg/dL Phosphorus (2.5-4.5) mg/dL Magnesium (1.6-2.3) mg/dL AST (17-59) U/L ALT (4-49) U/L Alkaline Phosphatase (38-126) U/L Total Protein (6.3-8.2) g/dL Albumin (3.5-5.0) g/dL Assessment and Plan Assessment: Postop day #6, status post three-vessel bypass grafting. Routine postoperative ventilator management. Chronic systolic CHF, with an ejection fraction of 30 to 35%. Cardiogenic shock and severe LV dysfunction. Peripheral vascular disease. Type 2 diabetes mellitus. Essential hypertension. Hyperlipidemia. History of developmental delay. Bipolar disorder. Chronic anxiety. Prior history of tobacco use. Left apical pneumothorax. Acute kidney injury/ATN. Severe cardiomyopathy. Severe metabolic acidosis. Plan: Plan dated September 09, 2023. The patient is seen today in room 266. He is currently on room air. He is on an insulin drip at 2 units an hour. In addition, for cardiovascular support, he is on dobutamine at 2.5 mcg/kg/min. He is getting lactated Ringer's at 30 cc an hour. Unfortunately, his kidneys have failed, and he will have hemodialysis for the first time today. We will continue to follow, make recommendations along the way. Labs, x-rays, medications are all reviewed. The patient's overall prognosis remains guarded. Time with Patient: Greater than 30
[2023-09-09 12:23] LABS: Prealbumin <6.0 mg/dL (18.0-42.0)
[2023-09-09] MEDS: LIDOCAINE 1% INJ 10MG/ML (20 ML MDV) SQ ONE (13:15)
[2023-09-09] MEDS: MIDODRINE 5 MG TAB PO SCH (13:15)
--- NOTE | 2023-09-09 13:59 | P.GSCN ---
History of Present Illness History of present illness: 63-year-old gentleman consulted for placement of dialysis catheter. Patient had history of acute chronic renal failure post CABG patient also has ejection fraction of 20-25 continue myopathy patient was seen in the intensive care unit patient has been intubated on examination chest cyst clear good entry both lungs few crackles at lung bases 4-second sound present Abdomen is soft nontender Vascular femorals are deep 1+ Plan is placement of dialysis catheter Past Medical History Past Medical History: Coronary Artery Disease (CAD), Heart Failure, Diabetes Mellitus, Hyperlipidemia, Hypertension Additional Past Medical History / Comment(s): chronic systolic heart failure,cardiomyapathy,rush cataracts History of Any Multi-Drug Resistant Organisms: None Reported Past Surgical History: Heart Catheterization Additional Past Surgical History / Comment(s): Previous foot and wrist surgery Past Anesthesia/Blood Transfusion Reactions: No Reported Reaction Additional Past Anesthesia/Blood Transfusion Reaction / Comm: no known hx blood transfusion Smoking Status: Former smoker - Past Family History Mother Family Medical History: COPD, Pneumonia Brother(s) Family Medical History: COPD Medications and Allergies Home Medications Medication Instructions Recorded Confirmed Type DULoxetine HCL [Cymbalta] 60 mg PO DAILY 08/28/23 08/28/23 History Empagliflozin [Jardiance] 10 mg PO DAILY 08/28/23 08/28/23 History Furosemide [Lasix] 40 mg PO BID 08/28/23 08/28/23 History Glimepiride [Amaryl] 2 mg PO DAILY 08/28/23 08/28/23 History Losartan [Cozaar] 25 mg PO DAILY 08/28/23 08/28/23 History Metoprolol Succinate (ER) [Toprol 50 mg PO DAILY 08/28/23 08/28/23 History Xl] Rosuvastatin Calcium [Crestor] 40 mg PO DAILY 08/28/23 08/28/23 History Spironolactone [Aldactone] 12.5 mg PO DAILY 08/28/23 08/28/23 History busPIRone HCL 15 mg PO BID 08/28/23 08/28/23 History Allergies Allergy/AdvReac Type Severity Reaction Status Date / Time ibuprofen Allergy Unknown Verified 08/28/23 10:06 Surgical - Exam Vital Signs Temp Pulse Resp BP Pulse Ox 97.5 F L 85 18 117/74 97 09/01/23 09:24 09/01/23 09:24 09/01/23 09:24 09/01/23 09:24 09/01/23 09:24 Results - Labs 09/09/23 03:46 09/09/23 03:46 Abnormal Lab Results - Last 24 Hours (Table) 09/08/23 09/08/23 09/08/23 Range/Units 16:14 18:20 19:58 RBC (4.30-5.90) m/uL Hgb (13.0-17.5) gm/dL Hct (39.0-53.0) % Plt Count (150-450) k/uL Sodium (137-145) mmol/L Carbon Dioxide (22-30) mmol/L BUN (9-20) mg/dL Creatinine (0.66-1.25) mg/dL Glucose (74-99) mg/dL POC Glucose (mg/dL) 133 H 127 H 124 H (70-110) mg/dL Calcium (8.4-10.2) mg/dL Phosphorus (2.5-4.5) mg/dL Magnesium (1.6-2.3) mg/dL AST (17-59) U/L ALT (4-49) U/L Alkaline Phosphatase (38-126) U/L Total Protein (6.3-8.2) g/dL Albumin (3.5-5.0) g/dL Prealbumin (18.0-42.0) mg/dL 09/09/23 09/09/23 09/09/23 Range/Units 00:01 01:56 03:46 RBC 2.62 L (4.30-5.90) m/uL Hgb 8.1 L (13.0-17.5) gm/dL Hct 24.9 L (39.0-53.0) % Plt Count 105 L (150-450) k/uL Sodium (137-145) mmol/L Carbon Dioxide (22-30) mmol/L BUN (9-20) mg/dL Creatinine (0.66-1.25) mg/dL Glucose (74-99) mg/dL POC Glucose (mg/dL) 121 H 150 H (70-110) mg/dL Calcium (8.4-10.2) mg/dL Phosphorus (2.5-4.5) mg/dL Magnesium (1.6-2.3) mg/dL AST (17-59) U/L ALT (4-49) U/L Alkaline Phosphatase (38-126) U/L Total Protein (6.3-8.2) g/dL Albumin (3.5-5.0) g/dL Prealbumin (18.0-42.0) mg/dL 09/09/23 09/09/23 09/09/23 Range/Units 03:46 04:46 06:06 RBC (4.30-5.90) m/uL Hgb (13.0-17.5) gm/dL Hct (39.0-53.0) % Plt Count (150-450) k/uL Sodium 135 L (137-145) mmol/L Carbon Dioxide 12 L (22-30) mmol/L BUN 79 H (9-20) mg/dL Creatinine 5.27 H (0.66-1.25) mg/dL Glucose 118 H (74-99) mg/dL POC Glucose (mg/dL) 119 H 119 H (70-110) mg/dL Calcium 7.6 L (8.4-10.2) mg/dL Phosphorus 7.0 H (2.5-4.5) mg/dL Magnesium 2.8 H (1.6-2.3) mg/dL AST 300 H (17-59) U/L ALT 155 H (4-49) U/L Alkaline Phosphatase 149 H (38-126) U/L Total Protein 5.2 L (6.3-8.2) g/dL Albumin 2.8 L (3.5-5.0) g/dL Prealbumin <6.0 L (18.0-42.0) mg/dL 09/09/23 09/09/23 Range/Units 08:20 11:31 RBC (4.30-5.90) m/uL Hgb (13.0-17.5) gm/dL Hct (39.0-53.0) % Plt Count (150-450) k/uL Sodium (137-145) mmol/L Carbon Dioxide (22-30) mmol/L BUN (9-20) mg/dL Creatinine (0.66-1.25) mg/dL Glucose (74-99) mg/dL POC Glucose (mg/dL) 126 H 141 H (70-110) mg/dL Calcium (8.4-10.2) mg/dL Phosphorus (2.5-4.5) mg/dL Magnesium (1.6-2.3) mg/dL AST (17-59) U/L ALT (4-49) U/L Alkaline Phosphatase (38-126) U/L Total Protein (6.3-8.2) g/dL Albumin (3.5-5.0) g/dL Prealbumin (18.0-42.0) mg/dL Diabetes panel 09/09/23 Range/Units 03:46 Sodium 135 L (137-145) mmol/L Potassium 4.6 (3.5-5.1) mmol/L Chloride 107 (98-107) mmol/L Carbon Dioxide 12 L (22-30) mmol/L BUN 79 H (9-20) mg/dL Creatinine 5.27 H (0.66-1.25) mg/dL Glucose 118 H (74-99) mg/dL Calcium 7.6 L (8.4-10.2) mg/dL AST 300 H (17-59) U/L ALT 155 H (4-49) U/L Alkaline Phosphatase 149 H (38-126) U/L Total Protein 5.2 L (6.3-8.2) g/dL Albumin 2.8 L (3.5-5.0) g/dL Calcium panel 09/09/23 Range/Units 03:46 Calcium 7.6 L (8.4-10.2) mg/dL Phosphorus 7.0 H (2.5-4.5) mg/dL Albumin 2.8 L (3.5-5.0) g/dL Pituitary panel 09/09/23 Range/Units 03:46 Sodium 135 L (137-145) mmol/L Potassium 4.6 (3.5-5.1) mmol/L Chloride 107 (98-107) mmol/L Carbon Dioxide 12 L (22-30) mmol/L BUN 79 H (9-20) mg/dL Creatinine 5.27 H (0.66-1.25) mg/dL Glucose 118 H (74-99) mg/dL Calcium 7.6 L (8.4-10.2) mg/dL Adrenal panel 09/09/23 Range/Units 03:46 Sodium 135 L (137-145) mmol/L Potassium 4.6 (3.5-5.1) mmol/L Chloride 107 (98-107) mmol/L Carbon Dioxide 12 L (22-30) mmol/L BUN 79 H (9-20) mg/dL Creatinine 5.27 H (0.66-1.25) mg/dL Glucose 118 H (74-99) mg/dL Calcium 7.6 L (8.4-10.2) mg/dL Total Bilirubin 1.2 (0.2-1.3) mg/dL AST 300 H (17-59) U/L ALT 155 H (4-49) U/L Alkaline Phosphatase 149 H (38-126) U/L Total Protein 5.2 L (6.3-8.2) g/dL Albumin 2.8 L (3.5-5.0) g/dL
[2023-09-09 14:00] LABS: Glucose,Whole Blood 113 mg/dL (70-110)
--- NOTE | 2023-09-09 14:10 | P.PCN ---
Description of Procedure: Pre-op diagnosis acute chronic renal failure postop same Placement of dialysis catheter left femoral approach Left groin was prepped and draped in Prestel manner. Ultrasound-guided micropuncture introduced left femoral vein micropuncture guide was passed. Then we passed a 4 Cuban sheath the top of the guidewire then we passed a regular guidewire without any resistance. Dilators were advanced. The guidewire. Then we placed 20 cm dialysis catheter. The guidewire guidewire was removed flushed with heparin saline hep-locked secured with 2-0 nylon patient taught the procedure well
[2023-09-09 16:27] LABS: Glucose,Whole Blood 98 mg/dL (70-110)
[2023-09-09 18:18] LABS: Glucose,Whole Blood 124 mg/dL (70-110)
[2023-09-09 19:54] LABS: Glucose,Whole Blood 130 mg/dL (70-110)
--- NOTE | 2023-09-09 21:40 | P.PN ---
Subjective Progress Note Date: 09/08/23 63-year-old gentleman with past medical history significant for coronary artery disease, chronic congestive heart failure with ejection fraction of 30%, hypertension hyperlipidemia diabetes mellitus obesity bipolar disorder cardiomyopathy developmental delay history of nicotine dependence who has been admitted with shortness of breath and lower extremity edema. Patient underwent cardiac catheterization right heart catheterization and intra-aortic balloon pump. * Patient has comorbidities including diabetes mellitus type 2, peripheral arterial disease, bipolar disorder, history of anxiety. * Patient to undergo myocardial revascularization 09/02/2023. * 09/03/23 : Patient admitted to medical ICU. Patient was successfully extubated postprocedure. S/p intra-aortic balloon pump which remains in place through right femoral access. Patient remains on norepinephrine drip, Primacor drip, vasopressin. Bilateral chest tubes remained in place. Followed up by medical ICU and cardiac surgery. Follow-up blood work obtained including WBC 15.2 hemoglobin 9.2 platelet count of 98, serum chemistry sodium 141 potassium 4.7 carbon dioxide 24 BUN 26 creatinine 1.1 blood glucose 118-1 33 * 09/04/23: Patient seen and evaluated in medical ICU room 266, patient continues to remain on Levophed, vasopressin and pressor support. Blood work reviewed WBC 17.7 hemoglobin 9.4 platelet 117. Serum chemistry showed sodium 137 potassium 4.9 carbon dioxide 18 BUN 34 creatinine 1.52 blood glucose 123. Overnight patient was refusing to participate with care, patient counseled by cardiac surgery team as well. Brother at bedside, patient does follow co mmands, care plan discussed with nursing staff * 09/05/23: Patient seen and evaluated bedside, vitals reviewed blood pressure running in the 90s overnight. Patient remains on 2 L of oxygen. Blood work reviewed CBC shows WBC 14.3 hemoglobin 9.3 platelet 105 serum chemistry sodium 137 potassium 5.2 carbon dioxide 16 BUN 44 creatinine 1.99 total bilirubin 1.3 AST 464 ALT 128 will need to be monitored, p.atient remains lethargic however easily arousable 09/06/2023 -- Patient is seen and evaluated in ICU at bedside Vital signs reviewed and temperature of 97.9, pulse 90, respiration 14 and blood pressure of 110/40 Lab review shows WBC 14.2, hemoglobin of 8.7 and platelet count of 109, sodium 136, potassium 4.8, BUNs/creatinine of 54/2.91; concern about worsening renal fu nction likely related to cardiorenal syndrome; dopamine has been discontinued Chest x-ray reveals atelectasis and bibasilar pleural effusion --Patient remains on pressors and inotropic agents; cardiac index and cardiac output is being monitored closely -Patient remains on Plavix, aspirin, statins and beta-blockers -- Recommended to increase activity 09/07/2023 ---patient is basically about the same, he is now postoperative day #5, sitting at the bedside chair, patient is not motivated what bit remains on multiple inotropes and pressors, patient is receiving dopamine at 2.5 mcg/kg/min dobutamine at 5 mcg/kg/min norepinephrine at 0.06 mcg/kg/min vasopressin at 0.03 units/min and he is also on insulin at 3.5 units/h today he is off milrinone. Chest x-ray showed mostly atelectasis at the bases. No clear-cut evidence of pulmonary edema. Patient is maintained on 2 L nasal cannula, again the patient is doing extremely poorly with incentive spirometry and does not seem to be motivated at all. Renal functioning seems to be getting worse, his BUN is 63 creatinine 3.54, at this rate I am quite concerned with the patient may end up requiring hemodialysis. This is being addressed by nephrology on the case. Liver enzymes are improving Continue pressors and inotropes continue to monitor cardiac index and cardiac output Continue dopamine, continue dobutamine, patient is off milrinone today. However he is still requiring norepinephrine and vasopressin Continue Plavix beta-blockers aspirin and statin Titrate pressors and inotropes as tolerated 09/08/2023 --patient is seen and evaluated with family at bedside; now postoperative day # 6. -- Patient is still requiring dobutamine at 0.5 mcg/kg/min, still requiring vasopressin at 0.02 units/min, his norepinephrine is presently on hold, and milrinone was discontinued. Still on insulin at 3 units/h. -- chest x-ray is showing bibasilar atelectasis and small left pleural effusion with a small right pleural effusion -- WBC count is 6 hemoglobin 8.7 basic metabolic profile is normal except for bicarb of 15 and again worsening renal profile BUN is up to 71 creatinine 4.40 -Renal function continues to worsen; nephrology on board and planning to continue with IV Lasix and oral sodium bicarbonate; plan for possible hemodialysis in a.m. if urine output does not improve 09/09/2023 Patient is awake alert but looks very tired and lethargic lying in chair. No significant chest pain. Patient has average appetite No significant dyspnea but looks very weak Patient required pressors Patient planned and considered for hemodialysis given his worsening renal function today 5.2 compared with 1.5 upon admission He has severe cardiomyopathy with ejection fraction 20 to 25% and currently on aspirin and Plavix and amiodarone drip. Also he required pressors as above, cardiology following closely. Review of systems CONSTITUTIONAL: No fever, no malaise, no fatigue. HEENT: No recent visual problems or hearing problems. Denied any sore throat HEMATOLOGICAL: Denies any bleeding or petechiae. GENITOURINARY: Denies any burning micturition, frequency, or urgency. MUSCULOSKELETAL/RHEUMATOLOGICAL: Denies any joint pain, swelling, or any muscle pain. ENDOCRINE: Denies any polyuria or polydipsia. Active Medications Generic Name Dose Route Start Last Admin Trade Name Freq PRN Reason Stop Dose Admin Acetaminophen 650 mg 09/05/23 11:04 09/08/23 14:17 Acetaminophen Tab 325 Mg Tab PO 650 mg Q4HR PRN Administration Fever and/ or Pain Albuterol/Ipratropium 3 ml 09/02/23 14:11 Ipratropium-Albuterol 3 Ml Neb INHALATION RT-Q2H PRN Shortness Of Breath Or Wheezing Albuterol/Ipratropium 3 ml 09/02/23 20:00 09/09/23 20:37 Ipratropium-Albuterol 3 Ml Neb INHALATION Not Given RT-QID ZAID Aspirin 81 mg 09/07/23 09:00 09/09/23 09:18 Aspirin 81 Mg PO 81 mg DAILY ZAID Administration Benzocaine/Menthol 1 each 09/02/23 14:11 Benzocaine/Menthol Lozeng 1 Each Lozenge MUCOUS MEM Q2H PRN Sore Throat Bisacodyl 10 mg 09/03/23 09:00 Bisacodyl 10 Mg Supp RECTAL DAILY PRN Constipation Buspirone HCl 15 mg 09/02/23 21:00 09/09/23 19:59 Buspirone Hcl 5 Mg Tab PO 15 mg BID ZAID Administration Clopidogrel Bisulfate 75 mg 09/03/23 09:00 09/09/23 09:18 Clopidogrel 75 Mg Tab PO 75 mg DAILY ZAID Administration Dextrose/Water 25 ml 09/02/23 14:11 Dextrose 50% Syringe 50 Ml IVP PER PROTOCOL PRN Hypoglycemia Protocol Dextrose/Water 50 ml 09/02/23 14:11 Dextrose 50% Syringe 50 Ml IVP PER PROTOCOL PRN Hypoglycemia Protocol Duloxetine HCl 60 mg 09/03/23 09:00 09/09/23 09:18 Duloxetine Hcl 60 Mg Capsule.Dr PO 60 mg DAILY ZAID Administration Heparin Sodium (Porcine) 5,000 unit 09/02/23 16:00 09/09/23 16:49 Heparin Sodium,Porcine 5,000 Unit/Ml 1 Ml Vial SQ 5,000 unit Q8HR ZAID Administration Amiodarone HCl 150 mg/ 103 mls @ 618 mls/hr 09/02/23 14:11 Dextrose/Water IV .Q10M PRN A.FIB/FLUTTER Protocol Amiodarone HCl 450 mg/ 250 mls @ 16.667 mls/hr 09/02/23 14:11 Dextrose/Water IV .Q15H PRN A.FIB/FLUTTER Protocol 0.5 MG/MIN Amiodarone HCl 360 mg/ 207.2 mls @ 34.533 mls/hr 09/02/23 14:11 Dextrose/Water IV .Q6H PRN A.FIB/FLUTTER Protocol 1 MG/MIN Insulin Human Regular 100 unit 101 mls @ 0 mls/hr 09/02/23 16:30 09/09/23 19:54 / Sodium Chloride IV 2 unit/hr .Q0M ZAID 2.02 mls/hr Titration Protocol Per Protocol Sodium Chloride 1,000 mls @ 20 mls/hr 09/05/23 07:15 09/09/23 06:37 Saline 0.9% IV 20 mls/hr .Q24H ZAID Administration Dobutamine HCl/Dextrose 500 mg 250 mls @ 11.925 mls/hr 09/06/23 08:00 07/03 19:54 / IV Solution IV 5 mcg/kg/min .[id number] ZAID 11.925 mls/hr Infusion 5 MCG/KG/MIN Ferric Sodium Gluconate 125 mg 110 mls @ 100 mls/hr 09/09/23 09:00 09/09/23 09:18 / Sodium Chloride IVPB 09/11/23 23:59 100 mls/hr DAILY ZAID Administration Vasopressin 20 unit/ Sodium 51 mls @ 4.59 mls/hr 09/09/23 11:00 09/09/23 11:23 Chloride IV 0.03 units/min .Q11H7M ZAID 4.59 mls/hr Administration Protocol 0.03 UNITS/MIN Magnesium Hydroxide 2,400 mg 09/03/23 09:00 Magnesium Hydroxide 2,400 Mg/30 Ml Cup PO BID PRN Constipation Metoclopramide HCl 10 mg 09/02/23 14:11 Metoclopramide 5 Mg/Ml 2 Ml Vial IVP Q4H PRN Nausea And Vomiting Metoprolol Tartrate 12.5 mg 09/04/23 09:00 09/09/23 19:59 Metoprolol Tartrate 12.5 Mg Tab PO 12.5 mg BID ZAID Administration Midodrine 5 mg 09/09/23 12:30 09/09/23 18:39 Midodrine 5 Mg Tab PO Not Given AC-TID ZAID Miscellaneous Information 1 each 09/02/23 14:11 Potassium Replacement Protocol 1 Each Misc MISCELLANE DAILY PRN Per Protocol Protocol Miscellaneous Information 1 each 09/02/23 14:11 Magnesium Replacement Protocol 1 Each Misc MISCELLANE DAILY PRN Per Protocol Protocol Ondansetron HCl 4 mg 09/02/23 14:11 09/03/23 17:07 Ondansetron 4 Mg/2 Ml Vial IVP 4 mg Q6HR PRN Administration Nausea And Vomiting Pantoprazole Sodium 40 mg 09/05/23 07:30 09/09/23 06:37 Pantoprazole 40 Mg Tablet PO 40 mg [id number] ZAID Administration Senna/Docusate Sodium 2 each 09/03/23 21:00 09/09/23 19:59 Sennosides-Docusate Sodium 1 Each Tab PO 2 each HS ZAID Administration Sodium Bicarbonate 650 mg 09/06/23 12:00 09/09/23 19:59 Sodium Bicarbonate Tab 650 Mg Tab PO 650 mg BID ZAID Administration Sodium Chloride 10 ml 09/02/23 21:00 09/09/23 20:00 Sodium Chloride 0.9% Flush 10 Ml Syringe IV 10 ml BID ZAID Administration Objective - Vital Signs Vital signs: Vital Signs Temp 37.1 F L 09/07/23 16:00 Pulse 68 09/09/23 12:00 Resp 33 H 09/09/23 12:00 BP 101/66 09/09/23 12:00 Pulse Ox 96 09/09/23 12:00 FiO2 40 09/02/23 20:33 Intake & Output 09/08/23 09/09/23 09/09/23 18:59 06:59 18:59 Intake Total 684.181 349.329 363.834 Output Total 95 40 35 Balance 589.181 309.329 328.834 Weight 88.3 kg Intake: IV 336 78 220 Lactated Ringers 1,000 ml 210 150 @ 20 mls/hr IV .Q24H ZAID Rx#:[id number] NS cardiac output 60 40 pressure bags 66 78 30 Intake, IV Titration 48.181 271.329 143.834 Amount DOBUTamine DRIP 500 mg In 241.282 128.591 Dextrose/Water 1 250ml. bag @ 2.5 MCG/KG/MIN 5. 963 mls/hr IV .Q24H ZAID Rx#:[id number] Insulin Regular 100 unit 24.057 30.047 15.243 In Sodium Chloride 0.9% 100 ml @ Per Protocol IV .Q0M ZAID Rx#:[id number] Vasopressin 20 unit In 24.124 Sodium Chloride 0.9% 50 ml @ 0.04 UNITS/MIN 6.12 mls/hr IV .Q8H20M ZAID Rx# :[id number] Oral 300 Output: Urine 95 40 35 Other: Voiding Method Indwelling Catheter Indwelling Catheter Indwelling Catheter ABP, PAP, CO, CI - Last Documented Arterial Blood Pressure 83/58 Pulmonary Artery Pressure 40/16 Cardiac Output 3.4 Cardiac Index 1.9 - Exam -GENERAL: The patient is alert and oriented x3, not in any acute distress. Well developed, well nourished. Lethargic and weak HEENT: Pupils are round and equally reacting to light. EOMI. No scleral icterus. No conjunctival pallor. Normocephalic, atraumatic. No pharyngeal erythema. No thyromegaly. CARDIOVASCULAR: S1 and S2 present. No murmurs, rubs, or gallops. PULMONARY: Chest is clear to auscultation, no wheezing , no crackles. ABDOMEN: Soft, nontender, nondistended, normoactive bowel sounds. No palpable organomegaly. MUSCULOSKELETAL: No joint swelling or deformity. -EXTREMITIES: No cyanosis, clubbing, bilateral pitting leg edema.-follow-up with wound service at the [facility] We recommend close monitoring of this metabolic panel (BMP ) while patient is on Lasix, also monitoring of complete cell count (CBC) NEUROLOGICAL: Gross neurological examination did not reveal any focal deficits. SKIN: No rashes. no petechiae. - Labs CBC & Chem 7: 09/09/23 03:46 09/09/23 03:46 Labs: Abnormal Lab Results - Last 24 Hours (Table) 09/08/23 09/08/23 09/08/23 Range/Units 16:14 18:20 19:58 RBC (4.30-5.90) m/uL Hgb (13.0-17.5) gm/dL Hct (39.0-53.0) % Plt Count (150-450) k/uL Sodium (137-145) mmol/L Carbon Dioxide (22-30) mmol/L BUN (9-20) mg/dL Creatinine (0.66-1.25) mg/dL Glucose (74-99) mg/dL POC Glucose (mg/dL) 133 H 127 H 124 H (70-110) mg/dL Calcium (8.4-10.2) mg/dL Phosphorus (2.5-4.5) mg/dL Magnesium (1.6-2.3) mg/dL AST (17-59) U/L ALT (4-49) U/L Alkaline Phosphatase (38-126) U/L Total Protein (6.3-8.2) g/dL Albumin (3.5-5.0) g/dL Prealbumin (18.0-42.0) mg/dL 09/09/23 09/09/23 09/09/23 Range/Units 00:01 01:56 03:46 RBC 2.62 L (4.30-5.90) m/uL Hgb 8.1 L (13.0-17.5) gm/dL Hct 24.9 L (39.0-53.0) % Plt Count 105 L (150-450) k/uL Sodium (137-145) mmol/L Carbon Dioxide (22-30) mmol/L BUN (9-20) mg/dL Creatinine (0.66-1.25) mg/dL Glucose (74-99) mg/dL POC Glucose (mg/dL) 121 H 150 H (70-110) mg/dL Calcium (8.4-10.2) mg/dL Phosphorus (2.5-4.5) mg/dL Magnesium (1.6-2.3) mg/dL AST (17-59) U/L ALT (4-49) U/L Alkaline Phosphatase (38-126) U/L Total Protein (6.3-8.2) g/dL Albumin (3.5-5.0) g/dL Prealbumin (18.0-42.0) mg/dL 09/09/23 09/09/23 09/09/23 Range/Units 03:46 04:46 06:06 RBC (4.30-5.90) m/uL Hgb (13.0-17.5) gm/dL Hct (39.0-53.0) % Plt Count (150-450) k/uL Sodium 135 L (137-145) mmol/L Carbon Dioxide 12 L (22-30) mmol/L BUN 79 H (9-20) mg/dL Creatinine 5.27 H (0.66-1.25) mg/dL Glucose 118 H (74-99) mg/dL POC Glucose (mg/dL) 119 H 119 H (70-110) mg/dL Calcium 7.6 L (8.4-10.2) mg/dL Phosphorus 7.0 H (2.5-4.5) mg/dL Magnesium 2.8 H (1.6-2.3) mg/dL AST 300 H (17-59) U/L ALT 155 H (4-49) U/L Alkaline Phosphatase 149 H (38-126) U/L Total Protein 5.2 L (6.3-8.2) g/dL Albumin 2.8 L (3.5-5.0) g/dL Prealbumin <6.0 L (18.0-42.0) mg/dL 09/09/23 09/09/23 Range/Units 08:20 11:31 RBC (4.30-5.90) m/uL Hgb (13.0-17.5) gm/dL Hct (39.0-53.0) % Plt Count (150-450) k/uL Sodium (137-145) mmol/L Carbon Dioxide (22-30) mmol/L BUN (9-20) mg/dL Creatinine (0.66-1.25) mg/dL Glucose (74-99) mg/dL POC Glucose (mg/dL) 126 H 141 H (70-110) mg/dL Calcium (8.4-10.2) mg/dL Phosphorus (2.5-4.5) mg/dL Magnesium (1.6-2.3) mg/dL AST (17-59) U/L ALT (4-49) U/L Alkaline Phosphatase (38-126) U/L Total Protein (6.3-8.2) g/dL Albumin (3.5-5.0) g/dL Prealbumin (18.0-42.0) mg/dL Assessment and Plan Assessment: Acute on chronic systolic ejection of congestive heart failure with ejection fraction worsened 35% down to 25% Cardiogenic shock Acute kidney injury requiring hemodialysis Peripheral vascular disease Hypertension Hyperlipidemia Diabetes mellitus Bipolar disorder Plan: Continue with pressors per nursing admin will follow the clinical case closely Pulmonary/critical care team Continue with insulin drip Continue with amiodarone and aspirin and Plavix On metoprolol Several consultants on the case DVT prophylaxis with subcutaneous heparin GI prophylaxis with Protonix Prognosis is guarded
--- NOTE | 2023-09-09 22:02 | PN ---
PROGRESS NOTE SUBJECTIVE: A 63-year-old gentleman, who is status post 3-vessel bypass surgery, ischemic cardiomyopathy, hypertension, diabetes. His post surgery course was complicated by ATN with renal failure and his BUN and creatinine are continuing to go up. This morning, the BUN is 79 with a creatinine of 5.2, and patient is to undergo dialysis. He continues to be hypotensive. The patient is currently on Plavix, metoprolol 12.5 b.i.d., and midodrine for the patient is on because of continued hypotension. OBJECTIVE: VITAL SIGNS: Heart rate is 78 beats per minute, blood pressure is 95/50, respiratory rate is 18. CHEST: Reveals diminished air entry at the bases. HEART: Reveals first and second heart sounds. No gallop. EXTREMITIES: Reveal bilateral 1+ pitting edema. ASSESSMENT AND PLAN: 1. Acute renal failure secondary to hypotension. 2. Coronary artery disease, status post coronary artery bypass graft surgery. 3. Hypotension. PLAN: Patient will undergo dialysis. I will add midodrine to what he is on. MMALEXISL / TEN: [id number] /
[2023-09-09 22:06] LABS: Glucose,Whole Blood 129 mg/dL (70-110)
[2023-09-10 00:01] LABS: Glucose,Whole Blood 143 mg/dL (70-110)
[2023-09-10 02:26] LABS: Glucose,Whole Blood 155 mg/dL (70-110)
[2023-09-10 04:04] LABS: Glucose,Whole Blood 143 mg/dL (70-110)
[2023-09-10 04:16] LABS: Basophils % (A) 0 %; Eosinophils % (A) 0 %; HCT 30.4 % (39.0-53.0); Lymphocytes # (A) 0.8 k/uL (1.0-4.8); Lymphocytes % (A) 9 %; MCH 31.5 pg (25.0-35.0); MCHC 32.9 g/dL (31.0-37.0); MCV 95.6 fL (80.0-100.0); Mean Platelet Volume 9.1; Monocytes # (A) 0.4 k/uL (0-1.0); Monocytes % (A) 4 %; Neutrophils # (A) 7.3 k/uL (1.3-7.7); Neutrophils % (A) 85 %; Platelet Count 119 k/uL (150-450); RBC 3.18 m/uL (4.30-5.90); RDW 15.3 % (11.5-15.5); WBC 8.7 k/uL (3.8-10.6)
[2023-09-10 04:40] LABS: ALT 141 U/L (4-49); AST 200 U/L (17-59); African American GFR (CKD) 16 (>60 ml/min/1.73 sqM); Albumin 2.8 g/dL (3.5-5.0); Alkaline Phosphatase 178 U/L (38-126); Anion Gap 17 mmol/L; Blood Urea Nitrogen 63 mg/dL (9-20); Calcium 7.6 mg/dL (8.4-10.2); Carbon Dioxide 14 mmol/L (22-30); Chloride 104 mmol/L (98-107); Glucose 135 mg/dL (74-99); Magnesium 2.5 mg/dL (1.6-2.3); Non-African American GFR(CKD) 14 (>60 ml/min/1.73 sqM); Phosphorus 6.4 mg/dL (2.5-4.5); Potassium 4.5 mmol/L (3.5-5.1); Sodium 135 mmol/L (137-145); Total Bilirubin 1.9 mg/dL (0.2-1.3); Total Protein 5.1 g/dL (6.3-8.2)
[2023-09-10 06:03] LABS: Hepatitis B Surface AB- Quant 3.5 mIU/mL
[2023-09-10 06:41] LABS: Glucose,Whole Blood 137 mg/dL (70-110)
[2023-09-10 08:26] LABS: Glucose,Whole Blood 130 mg/dL (70-110)
--- NOTE | 2023-09-10 08:28 | XR ---
EXAMINATION TYPE: XR chest 1V portable DATE OF EXAM: 09/10/2023 6:15 AM CLINICAL INDICATION:Male, 63 years old with history of post cardiac surgery; COMPARISON: 09/09/2023. TECHNIQUE: XR chest 1V portable Frontal view of the chest. FINDINGS: Lungs/Pleura: There is no evidence of pleural effusion, focal consolidation, or pneumothorax. Pulmonary vascularity: Unremarkable. Heart/mediastinum: Cardiomediastinal silhouette is enlarged and stable. Atherosclerotic calcificatio ns are seen in the aorta. Left atrial appendage occlusion device is present. Musculoskeletal: No acute osseous pathology. Other findings: None Lines/Tubes: There is a Lemmon-Isabell catheter with tip projecting over the spine. IMPRESSION: Surgical changes with relatively stable exam.
--- NOTE | 2023-09-10 09:57 | P.PN ---
Subjective Progress Note Date: 09/10/23 Principal diagnosis: Triple-vessel coronary artery disease with left main disease. Previous medical history of hypertension, hyperlipidemia, diabetes mellitus, chronic systolic he art failure with reduced ejection fraction/ischemic cardiomyopathy, bipolar disorder, obesity, peripheral vascular disease, developmental delay, previous tobacco dependence, noncompliance POD #9 right heart catheterization, ultrasound guided access, placement of intra-aortic balloon pump from right femoral access performed by Dr. Monreal. POD #8 on pump coronary artery bypass grafting x 3, left internal thoracic artery (in-situ) sequential to diagonal and left anterior descending coronary artery, right greater saphenous vein from aorta to obtuse marginal artery #1, left atrial appendage ligation with #35mm AtriClip, endoscopic bilateral greater saphenous vein harvest, graft flow measurements using the Sentons-stim flow meter system, trans-esophageal echo Postoperative acute blood loss anemia and thrombocytopenia, expected given hemodilution and cardiopulmonary bypass LEONARDO, status post placement of temp dialysis cath Elevated transaminases, likely due to hypoperfusion, trending down Cardiogenic shock The patient was seen and examined with Dr. Weller sitting up in recliner this mor sonny in no acute distress. Currently in sinus rhythm, blood pressure stable, off vasopressin currently although had to be put back on for a short while yesterday afternoon, remains on dobutamine. Started on midodrine yesterday by Dr. Richardson. Currently on room air with oxygen saturation in the high 90s. Patient continues to refuse to participate in his care, very minimal effort. He did try his IS this morning but only able to achieve 500 mL one time, nursing unable to get him to stand and needs karin lift to get him in recliner. Right internal jugular Spring/Cordis remains. Temporary dialysis cath placed yesterday in left groin, patient received dialysis yesterday. He got 1 unit PRBCs during dialysis. Chest x-ray, labs reviewed. Kidney function slightly better after dialysis, Only 70 mL urine output in the last 24 hours. He is more alert and awake this am and answering questions. Objective - Vital Signs Vital signs: Vital Signs Temp 98.6 F 09/09/23 17:00 Pulse 86 09/10/23 09:24 Resp 22 09/10/23 07:00 BP 93/60 09/10/23 07:00 Pulse Ox 96 09/10/23 09:26 FiO2 40 09/02/23 20:33 Intake & Output 09/09/23 09/10/23 09/10/23 18:59 06:59 18:59 Intake Total 1687.258 757.739 Output Total 750 20 Balance 937.258 737.739 Weight 91.3 kg Intake: IV 526 588 Lactated Ringers 1,000 ml 330 390 @ 20 mls/hr IV .Q24H ZAID Rx#:[id number] NS cardiac output 130 120 pressure bags 66 78 Intake, IV Titration 151.258 169.739 Amount DOBUTamine DRIP 500 mg In 128.591 111.306 Dextrose/Water 1 250ml. bag @ 5 MCG/KG/MIN 11.925 mls/hr IV .[id number] ZAID Rx#:[id number] Insulin Regular 100 unit 22.667 27.833 In Sodium Chloride 0.9% 100 ml @ Per Protocol IV .Q0M ZAID Rx#:[id number] Vasopressin 20 unit In 30.600 Sodium Chloride 0.9% 50 ml @ 0.03 UNITS/MIN 4.59 mls/hr IV .[id number] ZAID Rx# :[id number] Blood Product 310 Rc As-1 Unit 310 [id number] Hemodialysis 700 Output: Urine 50 20 Hemodialysis 700 Other: Voiding Method Indwelling Catheter Indwelling Catheter # Bowel Movements 1 ABP, PAP, CO, CI - Last Documented Arterial Blood Pressure 83/58 Pulmonary Artery Pressure 41/11 Cardiac Output 3.5 Cardiac Index 2 - Exam CONSTITUTIONAL: Appears comfortable, no acute distress RESPIRATORY: Lungs sounds diminished bilaterally. Respirations even, nonlabored. Currently on room air with oxygen saturation 97%. Poor effort with incentive spirometry, achieved 500 mL one time CARDIOVASCULAR: S1, S2 present. Regular rate and rhythm, sinus rhythm on telemetry. Sternum stable. Palpable peripheral pulses bilaterally. Generalized edema present. No calf pain or tenderness noted. Heart hugger, antiembolism stockings, SCDs present. GASTROINTESTINAL: Abdomen soft, nontender, nondistended. Active bowel sounds present 4 quadrants. Tolerating minimal diet. Positive bowel movement this morning GENITOURINARY: Hobson present, minimal output 70 mL in the last 24 hours. Left femoral dialysis cath present INTEGUMENTARY: Skin is warm and dry. Anterior chest incision well approximated. Bilateral lower extremity EVH sites well approximated without redness or drainage. NEUROLOGIC: Cranial nerves II through XII intact MUSKULOSKELETAL: Able to move all extremities, strength equal bilaterally, generalized weakness present although difficult to assess as patient isn't cooperating with care PSYCHIATRIC: Alert and oriented INVASIVE LINES AND TUBES: A/V epicardial pacemaker wires present, grounded. R ight internal jugular Spring/Cordis present. Last CO/CI 3.5/2.0, PA 45/14, CVP 12 - Allied health notes Allied health notes reviewed: nursing - Labs CBC & Chem 7: 09/10/23 03:50 09/10/23 03:50 Labs: Abnormal Lab Results - Last 24 Hours (Table) 09/01/23 09/09/23 09/09/23 Range/Units 14:32 03:46 11:31 RBC (4.30-5.90) m/uL Hgb (13.0-17.5) gm/dL Hct (39.0-53.0) % Plt Count (150-450) k/uL Lymphocytes # (1.0-4.8) k/uL Sodium (137-145) mmol/L Carbon Dioxide (22-30) mmol/L BUN (9-20) mg/dL Creatinine (0.66-1.25) mg/dL Glucose (74-99) mg/dL POC Glucose (mg/dL) 141 H (70-110) mg/dL Calcium (8.4-10.2) mg/dL Phosphorus (2.5-4.5) mg/dL Magnesium (1.6-2.3) mg/dL Total Bilirubin (0.2-1.3) mg/dL AST (17-59) U/L ALT (4-49) U/L Alkaline Phosphatase (38-126) U/L Total Protein (6.3-8.2) g/dL Albumin (3.5-5.0) g/dL Prealbumin <6.0 L (18.0-42.0) mg/dL Crossmatch See Detail 09/09/23 09/09/23 09/09/23 Range/Units 13:59 14:14 18:17 RBC (4.30-5.90) m/uL Hgb (13.0-17.5) gm/dL Hct (39.0-53.0) % Plt Count (150-450) k/uL Lymphocytes # (1.0-4.8) k/uL Sodium (137-145) mmol/L Carbon Dioxide (22-30) mmol/L BUN (9-20) mg/dL Creatinine (0.66-1.25) mg/dL Glucose (74-99) mg/dL POC Glucose (mg/dL) 113 H 124 H (70-110) mg/dL Calcium (8.4-10.2) mg/dL Phosphorus (2.5-4.5) mg/dL Magnesium (1.6-2.3) mg/dL Total Bilirubin (0.2-1.3) mg/dL AST (17-59) U/L ALT (4-49) U/L Alkaline Phosphatase (38-126) U/L Total Protein (6.3-8.2) g/dL Albumin (3.5-5.0) g/dL Prealbumin (18.0-42.0) mg/dL Crossmatch See Detail 09/09/23 09/09/23 09/09/23 Range/Units 19:52 22:04 23:59 RBC (4.30-5.90) m/uL Hgb (13.0-17.5) gm/dL Hct (39.0-53.0) % Plt Count (150-450) k/uL Lymphocytes # (1.0-4.8) k/uL Sodium (137-145) mmol/L Carbon Dioxide (22-30) mmol/L BUN (9-20) mg/dL Creatinine (0.66-1.25) mg/dL Glucose (74-99) mg/dL POC Glucose (mg/dL) 130 H 129 H 143 H (70-110) mg/dL Calcium (8.4-10.2) mg/dL Phosphorus (2.5-4.5) mg/dL Magnesium (1.6-2.3) mg/dL Total Bilirubin (0.2-1.3) mg/dL AST (17-59) U/L ALT (4-49) U/L Alkaline Phosphatase (38-126) U/L Total Protein (6.3-8.2) g/dL Albumin (3.5-5.0) g/dL Prealbumin (18.0-42.0) mg/dL Crossmatch 09/10/23 09/10/23 09/10/23 Range/Units 02:23 03:50 03:50 RBC 3.18 L (4.30-5.90) m/uL Hgb 10.0 L D (13.0-17.5) gm/dL Hct 30.4 L (39.0-53.0) % Plt Count 119 L (150-450) k/uL Lymphocytes # 0.8 L (1.0-4.8) k/uL Sodium 135 L (137-145) mmol/L Carbon Dioxide 14 L (22-30) mmol/L BUN 63 H (9-20) mg/dL Creatinine 4.33 H (0.66-1.25) mg/dL Glucose 135 H (74-99) mg/dL POC Glucose (mg/dL) 155 H (70-110) mg/dL Calcium 7.6 L (8.4-10.2) mg/dL Phosphorus 6.4 H (2.5-4.5) mg/dL Magnesium 2.5 H (1.6-2.3) mg/dL Total Bilirubin 1.9 H (0.2-1.3) mg/dL AST 200 H (17-59) U/L ALT 141 H (4-49) U/L Alkaline Phosphatase 178 H (38-126) U/L Total Protein 5.1 L (6.3-8.2) g/dL Albumin 2.8 L (3.5-5.0) g/dL Prealbumin (18.0-42.0) mg/dL Crossmatch 09/10/23 09/10/23 09/10/23 Range/Units 04:00 06:39 08:24 RBC (4.30-5.90) m/uL Hgb (13.0-17.5) gm/dL Hct (39.0-53.0) % Plt Count (150-450) k/uL Lymphocytes # (1.0-4.8) k/uL Sodium (137-145) mmol/L Carbon Dioxide (22-30) mmol/L BUN (9-20) mg/dL Creatinine (0.66-1.25) mg/dL Glucose (74-99) mg/dL POC Glucose (mg/dL) 143 H 137 H 130 H (70-110) mg/dL Calcium (8.4-10.2) mg/dL Phosphorus (2.5-4.5) mg/dL Magnesium (1.6-2.3) mg/dL Total Bilirubin (0.2-1.3) mg/dL AST (17-59) U/L ALT (4-49) U/L Alkaline Phosphatase (38-126) U/L Total Protein (6.3-8.2) g/dL Albumin (3.5-5.0) g/dL Prealbumin (18.0-42.0) mg/dL Crossmatch - Imaging and Cardiology Chest x-ray: report reviewed, image reviewed Assessment and Plan Assessment: Triple-vessel coronary artery disease with left main disease, status post three- vessel on pump CABG History of hypertension, currently hypotensive from vasoplegia Hyperlipidemia, treated, cholesterol 135, LDL 60, triglycerides 178 Diabetes mellitus, preoperative hemoglobin A1c 7.4% Chronic systolic heart failure with reduced ejection fraction/ischemic ca rdiomyopathy, EF 30-35%, preoperative placement of intra-aortic balloon pump Bipolar disorder Obesity Peripheral vascular disease, right FAIZAN 0.95, left FAIZAN 0.97 Developmental delay Previous tobacco dependence Moderate COPD, preoperative FEV1 55% of predicted Noncompliance Postoperative acute blood loss anemia and thrombocytopenia, expected Incidental finding of tiny left pneumothorax, not a complication, resolved LEONARDO, status post dialysis cath placement Elevated transaminases, cardiogenic shock, likely from hypoperfusion Plan: Continue aspirin, Plavix and beta-feliberto with hold parameters. Statin discontinued due to elevated transaminases, will restart when able Continue dobutamine, will cut in half again today Encourage use of incentive spirometry 10 times every hour while awake. Bronchodilators per pulmonology Increase activity, ambulate as tolerated. PT/OT/cardiac rehab following, patient resistant to participate Will monitor daily labs and chest x-rays Dialysis per nephrology, hopefully will get dialysis again today Avoid nephrotoxins Pain control per current medication regimen. Avoid to Toradol. No narcotics Continue Hobson catheter for another 24 hours, continue to record strict accurate intake and output Insulin management per internal medicine GI/DVT prophylaxis Will discontinue Spring-Isabell catheter this afternoon Daily weights Encourage oral intake, supplements ordered Patient needs continued encouragement to participate in his care Prognosis remains very guarded More recommendations to follow based on patient's clinical course.
[2023-09-10 10:47] LABS: Glucose,Whole Blood 127 mg/dL (70-110)
--- NOTE | 2023-09-10 12:01 | P.PN ---
Subjective Progress Note Date: 09/10/23 Principal diagnosis: Coronary artery disease. 63-year-old male patient, was brought into the intensive care unit after having an antibiotic balloon pump inserted this morning and this was done in preparation for coronary artery bypass surgery. The patient is known to have CAD, chronic CHF with impaired ejection fraction of 30 to 35%. The patient has been hospitalized with [facility] and an earlier cardiac catheterization from April 2023 showed a 70% left main, 70% proximal LAD, 30% circumflex and 70% obtuse marginal 1 and 60% mid RCA. The patient has impaired LV function with an EF around 30 to 35% along with mild to moderate MR, and severe pulm hypertension. The patient is scheduled to undergo coronary artery bypass surgery tomorrow. He is currently on room air oxygen. Free of any chest pain. Hemodynamically stable. Augmented blood pressure is around 80. He has some developmental delay and his other comorbid conditions include diabetes rachel litus type 2, hypertension and hyperlipidemia. Blood work shows a white cell count of 9, hemoglobin 11.8, platelet count of 206, normal coagulation profile, BUN of 27 with a creatinine of 1 and sodium levels at 138. LFTs are normal. His CAT scan of the chest that was done on 07/16/2023 showed cardiomegaly with small right and left-sided pleural effusion. This is consistent with CHF. No mediastinal lymphadenopathy. The patient is seen today September 02, 2023 in follow-up in the intensive care unit following surgery. He had undergone an on pump coronary artery bypass grafting x 3 with a left internal thoracic artery sequential to diagonal and the LAD. Right SVG from the aorta to the obtuse marginal #1. Left atrial appendage ligation and clipping. He remains intubated on the mechanical ventilator and assist-control mode at a rate of 14, tidal volume 500, FiO2 40% and a PEEP of 10. He remains on propofol at 20 mcg/kg/min. Lactated Ringer's at 50 MLS per hour. He is requiring vasopressin at 0.04 units/min. Insulin drip at 1 unit/h. Norepinephrine at 0.05 mcg/kg/min. Milrinone at 0.25 mcg/kg/min intra-aortic balloon pump remains in place. Mediastinal and right and left split chest tubes remain in place. Cardiac output is 4.7. Cardiac index 2.6. Received albumin. Receiving cefazolin. Heparin for DVT prophylaxis. White count 11.7. Hemoglobin 11.5. Platelets 84,000. INR 1.4. Sodium 141. Potassium 3.7. Bicarb 22. BUN 22. Creatinine 0.88. Glucose 101. X-ray no overt failure, pneumothorax or sizable consolidation. ABG's are pending. Patient was today on 09/03/2023, patient was extubated last night uneventfully, patient is now on 2 L nasal cannula, his intra-aortic balloon has been removed today patient remains on pressors and on inotropes. Still requiring norepinephrine at 0.02 mcg/kg/min still on milrinone 0.25 mcg/kg/min and on 0.04 units/min of vasopressin. Cardiac output today is 6.5 cardiac index is 3.7 PA pressure 41/17 CVP of 15. Continues to have mediastinal left and right-sided pleural chest tubes in place, had about 780 mL output since surgery. Chest x- ray is showing mostly postoperative changes labs were all reviewed. WBC count i s 15.2 hemoglobin 9.2. Basic metabolic profile is normal, creatinine 1.10 up from 0.88 yesterday Reevaluated today on 09/04/2023, patient remains in the ICU on 3 L nasal cannula, insulin drip at 1.5 units/h still receiving norepinephrine at 0.08 mcg/kg/min milrinone 0.1 mcg/kg/min vasopressin at 0.03 units/min. Cardiac output is 5.0 cardiac index 2.8, patient remains marginal at best, he is sitting at the bedside chair, does not seem to be in distress, on 3 L nasal cannula. Chest x- ray showed no evidence of pulmonary edema no evidence of pneumonia he does have a small tiny apical left pneumothorax. WBC count is 17.7 hemoglobin 9.4. Basic metabolic profile is normal however his BUN is 34 creatinine is 1.52, apparently the patient does have sustained some acute kidney injury most likely related to hypotension/acute tubular necrosis. Patient was reevaluated today on 09/05/2023, remains in the ICU, still requiring multiple drips, he is on dopamine at 2.5 mcg/kg/min norepinephrine at 0.03 mcg/kg/min vasopressin 0.03 units/min patient is also on insulin at 1.5 units/h. Cardiac index remains low at 1.9 cardiac output is relatively low at 3.4. Pulmonary artery pressure 44/18, CVP is 12. Patient does not seem to be very much motivated, he is achieving less than 500 cc on incentive spirometry. The last patient is on 2 L nasal cannula, refusing to participate in physical activity, refusing incentive spirometry, chest tubes, remain in place, prognosis remains guarded. Chest x-ray showed mostly bibasilar atelectasis, mild interstitial prominence, I doubt left-sided pneumothorax as documented by radiology Reevaluate today on 09/06/2023, patient is basically about the same. Patient is in the ICU, he is on multiple drips including higher dose of inotrope, milrinone 0.25 he is on norepinephrine at 0.02 mcg/kg/min vasopressin at 0.03 units/min dopamine at 2.5 mcg/kg/min dobutamine at 2.5 mcg/kg/min insulin at 2.5 units an hour, urine output is low, patient received albumin cardiac index is 2.9 today cardiac output is 5.9. His renal functioning is getting a bit worse, patient apparently the patient is developing what seems to be a cardiorenal syndrome. Chest x-ray is showing atelectasis and bibasilar pleural effusions. Patient is not motivated, does not seem to be interested in getting motivated. And been doing poorly with incentive spirometry Reevaluate today on 09/06, patient is basically about the same, he is now postoperative day #5, sitting at the bedside chair, patient is not motivated what bit remains on multiple inotropes and pressors, patient is receiving dopamine at 2.5 mcg/kg/min dobutamine at 5 mcg/kg/min norepinephrine at 0.06 mcg/kg/min vasopressin at 0.03 units/min and he is also on insulin at 3.5 units/h today he is off milrinone. Cardiac output is 3.8 cardiac index is 2.1 PA pressure 43/15 CVP is 13. Chest x-ray showed mostly atelectasis at the bases. No clear-cut evidence of pulmonary edema. Patient is maintained on 2 L nasal cannula, again the patient is doing extremely poorly with incentive spirometry and does not seem to be motivated at all. Renal functioning seems to be getting worse, his BUN is 63 creatinine 3.54, at this rate I am quite concerned with the patient may end up requiring hemodialysis. This is being addressed by nephrology on the case. Liver enzymes are improving Today on 09/08/2023, patient is now postoperative day #6. Patient is still requiring dobutamine at 0.5 mcg/kg/min, still requiring vasopressin at 0.02 units/min, his norepinephrine is presently on hold, and milrinone was disconti nued. Still on insulin at 3 units/h. Surprisingly the patient is not developing congestive heart failure, but he is developing worsening renal failure, and he may end up requiring renal replacement therapy. His PA pressure 40/18, his cardiac output is 3.9 cardiac index is 2.2 chest x-ray is showing bibasilar atelectasis and small left pleural effusion with a small right pleural effusion Elizabeth-Isabell remains in place WBC count is 6 hemoglobin 8.7 basic metabolic profile is normal except for bicarb of 15 and again worsening renal profile BUN is up to 71 creatinine 4.40 Progress note dated September 09, 2023. This is a 63-year-old male, who was seen today in room 266. The patient is status post three-vessel bypass grafting. He went to the operating room on September 01. He is currently on room air. He is receiving insulin at 2 units an hour. In addition, the patient is getting lactated Ringer's at 30 cc an hour, and dobutamine at 2.5 mcg/kg/min. The patient will have hemodialysis for the f irst time today. Current labs include a white count 6.8, hemoglobin 8.1, hematocrit 24.9, and a platelet count of 105,000. Sodium 135, potassium 4.6, chlorides 107, CO2 12, anion gap 16, BUN 79, creatinine 5.27. Glucose is 141. Calcium 7.6. AST is 300. ALT is 155. Albumin is 2.8. Chest x-ray shows cardiomegaly, with bilateral pleural effusions. Progress note dated September 10, 2023. This is a 63-year-old male who is seen in room 266. Currently, the patient is on room air. The patient is getting insulin drip at 3 units an hour, and continues on dobutamine for cardiovascular support at 5 mcg/kg/min. The patient is still not very motivated, to improve his overall clinical situation. He does poorly on his incentive spirometer. Current laboratory data includes a white count 8.7, hemoglobin 10 hematocrit 30.4, platelet count 119,000. Sodium 135, potassium 4.5, chlorides 104, CO2 14, anion gap 17, BUN 63, and creatinine 4.33. The most recent glucose was 127. AST is 200, ALT 141. Albumin 2.8. Calcium 7.6. The patient's chest x-ray shows some postoperative changes, but has been relatively stable. Objective - Vital Signs Vital signs: Vital Signs Temp 98.6 F 09/09/23 17:00 Pulse 69 09/10/23 10:00 Resp 23 09/10/23 10:00 BP 96/55 09/10/23 10:00 Pulse Ox 96 09/10/23 10:00 FiO2 40 09/02/23 20:33 Intake & Output 09/09/23 09/10/23 09/10/23 18:59 06:59 18:59 Intake Total 1687.258 757.739 628 Output Total 750 20 0 Balance 937.258 737.739 628 Weight 91.3 kg Intake: IV 526 588 128 Lactated Ringers 1,000 ml 330 390 90 @ 20 mls/hr IV .Q24H ZAID Rx#:[id number] NS cardiac output 130 120 20 pressure bags 66 78 18 Intake, IV Titration 151.258 169.739 Amount DOBUTamine DRIP 500 mg In 128.591 111.306 Dextrose/Water 1 250ml. bag @ 5 MCG/KG/MIN 11.925 mls/hr IV .[id number] ZAID Rx#:[id number] Insulin Regular 100 unit 22.667 27.833 In Sodium Chloride 0.9% 100 ml @ Per Protocol IV .Q0M [facility]AID Rx#:[id number] Vasopressin 20 unit In 30.600 Sodium Chloride 0.9% 50 ml @ 0.03 UNITS/MIN 4.59 mls/hr IV .Q11H7M [facility]AID Rx# :[id number] Oral 500 Blood Product 310 Rc As-1 Unit 310 [id number] Hemodialysis 700 Output: Urine 50 20 0 Hemodialysis 700 Other: Voiding Method Indwelling Catheter Indwelling Catheter Indwelling Catheter # Bowel Movements 1 ABP, PAP, CO, CI - Last Documented Arterial Blood Pressure 83/58 Pulmonary Artery Pressure 41/14 Cardiac Output 3.8 Cardiac Index 2.1 - Exam No acute distress, oriented 3. Currently on room air. HEENT examination is grossly unremarkable. Mucous membranes are moist. No oral lesions. Neck supple. Full range of motion. No adenopathy thyromegaly or neck vein distention. Cardiovascular examination reveals regular rhythm rate. S1-S2 normal. No S3 or S4. No discernible murmur noted. Heart sounds are distant. Heart rate 69 bpm. Lungs reveal scattered rhonchi. No wheezes or crackles. Breath sounds equal bilaterally. Saturation is 96% on room air. Abdomen soft, but obese, with bowel sounds. No masses or tenderness. Extremities are intact. No cyanosis clubbing or edema. Skin is without rash or lesion. Neurologic examination is brief but nonfocal. - Labs CBC & Chem 7: 09/10/23 03:50 09/10/23 03:50 Labs: Abnormal Lab Results - Last 24 Hours (Table) 09/01/23 09/09/23 09/09/23 Range/Units 14:32 03:46 13:59 RBC (4.30-5.90) m/uL Hgb (13.0-17.5) gm/dL Hct (39.0-53.0) % Plt Count (150-450) k/uL Lymphocytes # (1.0-4.8) k/uL Sodium (137-145) mmol/L Carbon Dioxide (22-30) mmol/L BUN (9-20) mg/dL Creatinine (0.66-1.25) mg/dL Glucose (74-99) mg/dL POC Glucose (mg/dL) 113 H (70-110) mg/dL Calcium (8.4-10.2) mg/dL Phosphorus (2.5-4.5) mg/dL Magnesium (1.6-2.3) mg/dL Total Bilirubin (0.2-1.3) mg/dL AST (17-59) U/L ALT (4-49) U/L Alkaline Phosphatase (38-126) U/L Total Protein (6.3-8.2) g/dL Albumin (3.5-5.0) g/dL Prealbumin <6.0 L (18.0-42.0) mg/dL Crossmatch See Detail 09/09/23 09/09/23 09/09/23 Range/Units 14:14 18:17 19:52 RBC (4.30-5.90) m/uL Hgb (13.0-17.5) gm/dL Hct (39.0-53.0) % Plt Count (150-450) k/uL Lymphocytes # (1.0-4.8) k/uL Sodium (137-145) mmol/L Carbon Dioxide (22-30) mmol/L BUN (9-20) mg/dL Creatinine (0.66-1.25) mg/dL Glucose (74-99) mg/dL POC Glucose (mg/dL) 124 H 130 H (70-110) mg/dL Calcium (8.4-10.2) mg/dL Phosphorus (2.5-4.5) mg/dL Magnesium (1.6-2.3) mg/dL Total Bilirubin (0.2-1.3) mg/dL AST (17-59) U/L ALT (4-49) U/L Alkaline Phosphatase (38-126) U/L Total Protein (6.3-8.2) g/dL Albumin (3.5-5.0) g/dL Prealbumin (18.0-42.0) mg/dL Crossmatch See Detail 09/09/23 09/09/23 09/10/23 Range/Units 22:04 23:59 02:23 RBC (4.30-5.90) m/uL Hgb (13.0-17.5) gm/dL Hct (39.0-53.0) % Plt Count (150-450) k/uL Lymphocytes # (1.0-4.8) k/uL Sodium (137-145) mmol/L Carbon Dioxide (22-30) mmol/L BUN (9-20) mg/dL Creatinine (0.66-1.25) mg/dL Glucose (74-99) mg/dL POC Glucose (mg/dL) 129 H 143 H 155 H (70-110) mg/dL Calcium (8.4-10.2) mg/dL Phosphorus (2.5-4.5) mg/dL Magnesium (1.6-2.3) mg/dL Total Bilirubin (0.2-1.3) mg/dL AST (17-59) U/L ALT (4-49) U/L Alkaline Phosphatase (38-126) U/L Total Protein (6.3-8.2) g/dL Albumin (3.5-5.0) g/dL Prealbumin (18.0-42.0) mg/dL Crossmatch 09/10/23 09/10/23 09/10/23 Range/Units 03:50 03:50 04:00 RBC 3.18 L (4.30-5.90) m/uL Hgb 10.0 L D (13.0-17.5) gm/dL Hct 30.4 L (39.0-53.0) % Plt Count 119 L (150-450) k/uL Lymphocytes # 0.8 L (1.0-4.8) k/uL Sodium 135 L (137-145) mmol/L Carbon Dioxide 14 L (22-30) mmol/L BUN 63 H (9-20) mg/dL Creatinine 4.33 H (0.66-1.25) mg/dL Glucose 135 H (74-99) mg/dL POC Glucose (mg/dL) 143 H (70-110) mg/dL Calcium 7.6 L (8.4-10.2) mg/dL Phosphorus 6.4 H (2.5-4.5) mg/dL Magnesium 2.5 H (1.6-2.3) mg/dL Total Bilirubin 1.9 H (0.2-1.3) mg/dL AST 200 H (17-59) U/L ALT 141 H (4-49) U/L Alkaline Phosphatase 178 H (38-126) U/L Total Protein 5.1 L (6.3-8.2) g/dL Albumin 2.8 L (3.5-5.0) g/dL Prealbumin (18.0-42.0) mg/dL Crossmatch 09/10/23 09/10/23 09/10/23 Range/Units 06:39 08:24 10:45 RBC (4.30-5.90) m/uL Hgb (13.0-17.5) gm/dL Hct (39.0-53.0) % Plt Count (150-450) k/uL Lymphocytes # (1.0-4.8) k/uL Sodium (137-145) mmol/L Carbon Dioxide (22-30) mmol/L BUN (9-20) mg/dL Creatinine (0.66-1.25) mg/dL Glucose (74-99) mg/dL POC Glucose (mg/dL) 137 H 130 H 127 H (70-110) mg/dL Calcium (8.4-10.2) mg/dL Phosphorus (2.5-4.5) mg/dL Magnesium (1.6-2.3) mg/dL Total Bilirubin (0.2-1.3) mg/dL AST (17-59) U/L ALT (4-49) U/L Alkaline Phosphatase (38-126) U/L Total Protein (6.3-8.2) g/dL Albumin (3.5-5.0) g/dL Prealbumin (18.0-42.0) mg/dL Crossmatch Assessment and Plan Assessment: Postop day #7, status post three-vessel bypass grafting. Routine postoperative ventilator management. Chronic systolic CHF, with an ejection fraction of 30 to 35%. Cardiogenic shock and severe LV dysfunction. Peripheral vascular disease. Type 2 diabetes mellitus. Essential hypertension. Hyperlipidemia. History of developmental delay. Bipolar disorder. Chronic anxiety. Prior history of tobacco use. Left apical pneumothorax. Acute kidney injury/ATN. Severe cardiomyopathy. Severe metabolic acidosis. Plan: Plan dated September 09, 2023. The patient is seen today in room 266. He is currently on room air. He is on an insulin drip at 2 units an hour. In addition, for cardiovascular support, he is on dobutamine at 2.5 mcg/kg/min. He is getting lactated Ringer's at 30 cc an hour. Unfortunately, his kidneys have failed, and he will have hemodialysis for the first time today. We will continue to follow, make recommendations along the way. Labs, x-rays, medications are all reviewed. The patient's overall prognosis remains guarded. Plan dated September 10, 2023. The patient is seen today in room 266. The patient continues on an insulin drip at 3 units an hour, and also is on dobutamine, for cardiovascular support at 5 mcg/kg/min. The patient's overall clinical situation remains about the same. He is not particularly motivated at this point. The patient does poorly on his incentive spirometer. Labs, x-rays, and medications are reviewed. We will continue to follow the patient, make recommendations along the way. Prognosis is certainly guarded. Time with Patient: Greater than 30
--- NOTE | 2023-09-10 13:17 | P.PN ---
Subjective patient is seen for follow-up for acute kidney injury, oliguric hemodynamic ATN. Status post coronary artery bypass surgery on 09/02/2023 Patient is maintained on dobutamine EF is 20-25%. Patient remains oliguric with no response to high-dose loop diuretics. started hemodialysis on 09/09/2023. Scheduled for second treatment today. Maintained on amiodarone drip as well Objective - Vital Signs Vital signs: Vital Signs Temp 98.6 F 09/09/23 17:00 Pulse 72 09/10/23 12:00 Resp 25 H 09/10/23 12:00 BP 100/64 09/10/23 12:00 Pulse Ox 97 09/10/23 12:00 FiO2 40 09/02/23 20:33 Intake & Output 09/09/23 09/10/23 09/10/23 18:59 06:59 18:59 Intake Total 1687.258 757.739 628 Output Total 750 20 0 Balance 937.258 737.739 628 Weight 91.3 kg Intake: IV 526 588 128 Lactated Ringers 1,000 ml 330 390 90 @ 20 mls/hr IV .Q24H [facility] Rx#:[id number] NS cardiac output 130 120 20 pressure bags 66 78 18 Intake, IV Titration 151.258 169.739 Amount DOBUTamine DRIP 500 mg In 128.591 111.306 Dextrose/Water 1 250ml. bag @ 5 MCG/KG/MIN 11.925 mls/hr IV .[id number] [facility] Rx#:[id number] Insulin Regular 100 unit 22.667 27.833 In Sodium Chloride 0.9% 100 ml @ Per Protocol IV .Q0M [facility] Rx#:[id number] Vasopressin 20 unit In 30.600 Sodium Chloride 0.9% 50 ml @ 0.03 UNITS/MIN 4.59 mls/hr IV .Q11H7M [facility] Rx# :[id number] Oral 500 Blood Product 310 Rc As-1 Unit 310 [id number] Hemodialysis 700 Output: Urine 50 20 0 Hemodialysis 700 Other: Voiding Method Indwelling Catheter Indwelling Catheter Indwelling Catheter # Bowel Movements 1 ABP, PAP, CO, CI - Last Documented Arterial Blood Pressure 83/58 Pulmonary Artery Pressure 63/11 Cardiac Output 3.8 Cardiac Index 2.1 - Exam patient is awake, comfortable. No acute distress Examination of the heart S1 and S2 Examination of the lungs decreased breath sounds at the bases Abdomen is soft Examination of lower extremities shows no significant edema - Labs CBC & Chem 7: 09/10/23 03:50 09/10/23 03:50 Labs: Abnormal Lab Results - Last 24 Hours (Table) 09/01/23 09/09/23 09/09/23 Range/Units 14:32 13:59 14:14 RBC (4.30-5.90) m/uL Hgb (13.0-17.5) gm/dL Hct (39.0-53.0) % Plt Count (150-450) k/uL Lymphocytes # (1.0-4.8) k/uL Sodium (137-145) mmol/L Carbon Dioxide (22-30) mmol/L BUN (9-20) mg/dL Creatinine (0.66-1.25) mg/dL Glucose (74-99) mg/dL POC Glucose (mg/dL) 113 H (70-110) mg/dL Calcium (8.4-10.2) mg/dL Phosphorus (2.5-4.5) mg/dL Magnesium (1.6-2.3) mg/dL Total Bilirubin (0.2-1.3) mg/dL AST (17-59) U/L ALT (4-49) U/L Alkaline Phosphatase (38-126) U/L Total Protein (6.3-8.2) g/dL Albumin (3.5-5.0) g/dL Crossmatch See Detail See Detail 09/09/23 09/09/23 09/09/23 Range/Units 18:17 19:52 22:04 RBC (4.30-5.90) m/uL Hgb (13.0-17.5) gm/dL Hct (39.0-53.0) % Plt Count (150-450) k/uL Lymphocytes # (1.0-4.8) k/uL Sodium (137-145) mmol/L Carbon Dioxide (22-30) mmol/L BUN (9-20) mg/dL Creatinine (0.66-1.25) mg/dL Glucose (74-99) mg/dL POC Glucose (mg/dL) 124 H 130 H 129 H (70-110) mg/dL Calcium (8.4-10.2) mg/dL Phosphorus (2.5-4.5) mg/dL Magnesium (1.6-2.3) mg/dL Total Bilirubin (0.2-1.3) mg/dL AST (17-59) U/L ALT (4-49) U/L Alkaline Phosphatase (38-126) U/L Total Protein (6.3-8.2) g/dL Albumin (3.5-5.0) g/dL Crossmatch 09/09/23 09/10/23 09/10/23 Range/Units 23:59 02:23 03:50 RBC 3.18 L (4.30-5.90) m/uL Hgb 10.0 L D (13.0-17.5) gm/dL Hct 30.4 L (39.0-53.0) % Plt Count 119 L (150-450) k/uL Lymphocytes # 0.8 L (1.0-4.8) k/uL Sodium (137-145) mmol/L Carbon Dioxide (22-30) mmol/L BUN (9-20) mg/dL Creatinine (0.66-1.25) mg/dL Glucose (74-99) mg/dL POC Glucose (mg/dL) 143 H 155 H (70-110) mg/dL Calcium (8.4-10.2) mg/dL Phosphorus (2.5-4.5) mg/dL Magnesium (1.6-2.3) mg/dL Total Bilirubin (0.2-1.3) mg/dL AST (17-59) U/L ALT (4-49) U/L Alkaline Phosphatase (38-126) U/L Total Protein (6.3-8.2) g/dL Albumin (3.5-5.0) g/dL Crossmatch 09/10/23 09/10/23 09/10/23 Range/Units 03:50 04:00 06:39 RBC (4.30-5.90) m/uL Hgb (13.0-17.5) gm/dL Hct (39.0-53.0) % Plt Count (150-450) k/uL Lymphocytes # (1.0-4.8) k/uL Sodium 135 L (137-145) mmol/L Carbon Dioxide 14 L (22-30) mmol/L BUN 63 H (9-20) mg/dL Creatinine 4.33 H (0.66-1.25) mg/dL Glucose 135 H (74-99) mg/dL POC Glucose (mg/dL) 143 H 137 H (70-110) mg/dL Calcium 7.6 L (8.4-10.2) mg/dL Phosphorus 6.4 H (2.5-4.5) mg/dL Magnesium 2.5 H (1.6-2.3) mg/dL Total Bilirubin 1.9 H (0.2-1.3) mg/dL AST 200 H (17-59) U/L ALT 141 H (4-49) U/L Alkaline Phosphatase 178 H (38-126) U/L Total Protein 5.1 L (6.3-8.2) g/dL Albumin 2.8 L (3.5-5.0) g/dL Crossmatch 09/10/23 09/10/23 Range/Units 08:24 10:45 RBC (4.30-5.90) m/uL Hgb (13.0-17.5) gm/dL Hct (39.0-53.0) % Plt Count (150-450) k/uL Lymphocytes # (1.0-4.8) k/uL Sodium (137-145) mmol/L Carbon Dioxide (22-30) mmol/L BUN (9-20) mg/dL Creatinine (0.66-1.25) mg/dL Glucose (74-99) mg/dL POC Glucose (mg/dL) 130 H 127 H (70-110) mg/dL Calcium (8.4-10.2) mg/dL Phosphorus (2.5-4.5) mg/dL Magnesium (1.6-2.3) mg/dL Total Bilirubin (0.2-1.3) mg/dL AST (17-59) U/L ALT (4-49) U/L Alkaline Phosphatase (38-126) U/L Total Protein (6.3-8.2) g/dL Albumin (3.5-5.0) g/dL Crossmatch Assessment and Plan Assessment: 1. Acute kidney injury secondary to ATN secondary to hypotension/cardiogenic shock. Baseline creatinine near 1. Oliguric, with no response to high-dose loop diuretics. UA fairly benign. started renal replacement therapy on 09/09/2023. 2. Coronary artery disease status post CABG x 3 September 02, 2023. 3. Shock maintained on Levophed, vasopressin, dopamine and dobutamine. 4. Cardiomyopathy with reduced ejection fraction. EF 25-20% 5. Metabolic acidosis secondary to acute kidney injury. 6. Cardiomyopathy with EF 20-25% Plan: hemodialysis today and repeat in a.m. Adjust bicarb on dialysis for metabolic acidosis. continue with oral sodium bicarb. Repeat labs in a.m.
[2023-09-10 13:26] LABS: Glucose,Whole Blood 101 mg/dL (70-110)
--- NOTE | 2023-09-10 15:24 | PN ---
PROGRESS NOTE SUBJECTIVE: Wes is a 63-year-old gentleman with coronary artery disease, status post bypass surgery, ischemic cardiomyopathy, diabetes, acute renal failure, who was started on dialysis yesterday. The patient continues to feel very poorly, remains his blood pressures are very marginal. I started him on midodrine yesterday. OBJECTIVE: VITAL SIGNS: On exam, heart rate is 69 beats per minute, blood pressure is 96/55, and respiratory rate is 18. CHEST: Reveals diminished air entry at the bases. HEART: Reveals first and second heart sounds. Systolic murmur at the apex. ABDOMEN: Soft. EXTREMITIES: Reveal bilateral pitting edema. LABORATORY DATA: Labs showed that the hemoglobin is 10. Potassium is 4.5, BUN is 63, and creatinine is 4.3. ASSESSMENT: 1. Coronary artery disease, status post bypass surgery. 2. Acute renal failure, on hemodialysis. PLAN: Continue current medications and supportive care. Prognosis is guarded. MMODL / IJN: [id number] /
[2023-09-10 15:27] LABS: Glucose,Whole Blood 93 mg/dL (70-110)
[2023-09-10 18:45] LABS: Glucose,Whole Blood 101 mg/dL (70-110)
[2023-09-10 20:28] LABS: Glucose,Whole Blood 118 mg/dL (70-110)
--- NOTE | 2023-09-10 22:57 | P.PN ---
Subjective Progress Note Date: 09/08/23 63-year-old gentleman with past medical history significant for coronary artery disease, chronic congestive heart failure with ejection fraction of 30%, hypertension hyperlipidemia diabetes mellitus obesity bipolar disorder cardiomyopathy developmental delay history of nicotine dependence who has been admitted with shortness of breath and lower extremity edema. Patient underwent cardiac catheterization right heart catheterization and intra-aortic balloon pump. * Patient has comorbidities including diabetes mellitus type 2, peripheral arterial disease, bipolar disorder, history of anxiety. * Patient to undergo myocardial revascularization 09/02/2023. * 09/03/23 : Patient admitted to medical ICU. Patient was successfully extubated postprocedure. S/p intra-aortic balloon pump which remains in place through right femoral access. Patient remains on norepinephrine drip, Primacor drip, vasopressin. Bilateral chest tubes remained in place. Followed up by medical ICU and cardiac surgery. Follow-up blood work obtained including WBC 15.2 hemoglobin 9.2 platelet count of 98, serum chemistry sodium 141 potassium 4.7 carbon dioxide 24 BUN 26 creatinine 1.1 blood glucose 118-1 33 * 09/04/23: Patient seen and evaluated in medical ICU room 266, patient continues to remain on Levophed, vasopressin and pressor support. Blood work reviewed WBC 17.7 hemoglobin 9.4 platelet 117. Serum chemistry showed sodium 137 potassium 4.9 carbon dioxide 18 BUN 34 creatinine 1.52 blood glucose 123. Overnight patient was refusing to participate with care, patient counseled by cardiac surgery team as well. Brother at bedside, patient does follow co mmands, care plan discussed with nursing staff * 09/05/23: Patient seen and evaluated bedside, vitals reviewed blood pressure running in the 90s overnight. Patient remains on 2 L of oxygen. Blood work reviewed CBC shows WBC 14.3 hemoglobin 9.3 platelet 105 serum chemistry sodium 137 potassium 5.2 carbon dioxide 16 BUN 44 creatinine 1.99 total bilirubin 1.3 AST 464 ALT 128 will need to be monitored, p.atient remains lethargic however easily arousable 09/06/2023 -- Patient is seen and evaluated in ICU at bedside Vital signs reviewed and temperature of 97.9, pulse 90, respiration 14 and blood pressure of 110/40 Lab review shows WBC 14.2, hemoglobin of 8.7 and platelet count of 109, sodium 136, potassium 4.8, BUNs/creatinine of 54/2.91; concern about worsening renal fu nction likely related to cardiorenal syndrome; dopamine has been discontinued Chest x-ray reveals atelectasis and bibasilar pleural effusion --Patient remains on pressors and inotropic agents; cardiac index and cardiac output is being monitored closely -Patient remains on Plavix, aspirin, statins and beta-blockers -- Recommended to increase activity 09/07/2023 ---patient is basically about the same, he is now postoperative day #5, sitting at the bedside chair, patient is not motivated what bit remains on multiple inotropes and pressors, patient is receiving dopamine at 2.5 mcg/kg/min dobutamine at 5 mcg/kg/min norepinephrine at 0.06 mcg/kg/min vasopressin at 0.03 units/min and he is also on insulin at 3.5 units/h today he is off milrinone. Chest x-ray showed mostly atelectasis at the bases. No clear-cut evidence of pulmonary edema. Patient is maintained on 2 L nasal cannula, again the patient is doing extremely poorly with incentive spirometry and does not seem to be motivated at all. Renal functioning seems to be getting worse, his BUN is 63 creatinine 3.54, at this rate I am quite concerned with the patient may end up requiring hemodialysis. This is being addressed by nephrology on the case. Liver enzymes are improving Continue pressors and inotropes continue to monitor cardiac index and cardiac output Continue dopamine, continue dobutamine, patient is off milrinone today. However he is still requiring norepinephrine and vasopressin Continue Plavix beta-blockers aspirin and statin Titrate pressors and inotropes as tolerated 09/08/2023 --patient is seen and evaluated with family at bedside; now postoperative day # 6. -- Patient is still requiring dobutamine at 0.5 mcg/kg/min, still requiring vasopressin at 0.02 units/min, his norepinephrine is presently on hold, and milrinone was discontinued. Still on insulin at 3 units/h. -- chest x-ray is showing bibasilar atelectasis and small left pleural effusion with a small right pleural effusion -- WBC count is 6 hemoglobin 8.7 basic metabolic profile is normal except for bicarb of 15 and again worsening renal profile BUN is up to 71 creatinine 4.40 -Renal function continues to worsen; nephrology on board and planning to continue with IV Lasix and oral sodium bicarbonate; plan for possible hemodialysis in a.m. if urine output does not improve 09/09/2023 Patient is awake alert but looks very tired and lethargic lying in chair. No significant chest pain. Patient has average appetite No significant dyspnea but looks very weak Patient required pressors Patient planned and considered for hemodialysis given his worsening renal function today 5.2 compared with 1.5 upon admission He has severe cardiomyopathy with ejection fraction 20 to 25% and currently on aspirin and Plavix and amiodarone drip. Also he required pressors as above, cardiology following closely. 09/10/2023 Patient still lethargic still sitting in chair No much difference clinically from yesterday A plan to undergo hemodialysis today for first-line, hemodialysis catheter in place. Patient is oliguric. He is currently getting dobutamine and insulin drip 3 units/h He is also on aspirin and Plavix and metoprolol Objective - Vital Signs Vital signs: Vital Signs Temp 98.6 F 09/09/23 17:00 Pulse 69 09/10/23 10:00 Resp 23 09/10/23 10:00 BP 96/55 09/10/23 10:00 Pulse Ox 96 09/10/23 10:00 FiO2 40 09/02/23 20:33 Intake & Output 09/09/23 09/10/23 09/10/23 18:59 06:59 18:59 Intake Total 1687.258 757.739 628 Output Total 750 20 0 Balance 937.258 737.739 628 Weight 91.3 kg Intake: IV 526 588 128 Lactated Ringers 1,000 ml 330 390 90 @ 20 mls/hr IV .Q24H [facility] Rx#:[id number] NS cardiac output 130 120 20 pressure bags 66 78 18 Intake, IV Titration 151.258 169.739 Amount DOBUTamine DRIP 500 mg In 128.591 111.306 Dextrose/Water 1 250ml. bag @ 5 MCG/KG/MIN 11.925 mls/hr IV .[id number] [facility] Rx#:[id number] Insulin Regular 100 unit 22.667 27.833 In Sodium Chloride 0.9% 100 ml @ Per Protocol IV .Q0M [facility] Rx#:[id number] Vasopressin 20 unit In 30.600 Sodium Chloride 0.9% 50 ml @ 0.03 UNITS/MIN 4.59 mls/hr IV .Q11H7M [facility] Rx# :[id number] Oral 500 Blood Product 310 Rc As-1 Unit 310 [id number] Hemodialysis 700 Output: Urine 50 20 0 Hemodialysis 700 Other: Voiding Method Indwelling Catheter Indwelling Catheter Indwelling Catheter # Bowel Movements 1 ABP, PAP, CO, CI - Last Documented Arterial Blood Pressure 83/58 Pulmonary Artery Pressure 41/14 Cardiac Output 3.8 Cardiac Index 2.1 - Exam -GENERAL: The patient is alert and oriented x3, not in any acute distress. Well developed, well nourished. Lethargic and weak HEENT: Pupils are round and equally reacting to light. EOMI. No scleral icterus. No conjunctival pallor. Normocephalic, atraumatic. No pharyngeal erythema. No thyromegaly. CARDIOVASCULAR: S1 and S2 present. No murmurs, rubs, or gallops. PULMONARY: Chest is clear to auscultation, no wheezing , no crackles. ABDOMEN: Soft, nontender, nondistended, normoactive bowel sounds. No palpable organomegaly. MUSCULOSKELETAL: No joint swelling or deformity. -EXTREMITIES: No cyanosis, clubbing, bilateral pitting leg edema.-follow-up with wound service at the [facility] We recommend close monitoring of this metabolic panel (BMP ) while patient is on Lasix, also monitoring of complete cell count (CBC) NEUROLOGICAL: Gross neurological examination did not reveal any focal deficits. SKIN: No rashes. no petechiae. - Labs CBC & Chem 7: 09/10/23 03:50 09/10/23 03:50 Labs: Abnormal Lab Results - Last 24 Hours (Table) 09/01/23 09/09/23 09/09/23 Range/Units 14:32 13:59 14:14 RBC (4.30-5.90) m/uL Hgb (13.0-17.5) gm/dL Hct (39.0-53.0) % Plt Count (150-450) k/uL Lymphocytes # (1.0-4.8) k/uL Sodium (137-145) mmol/L Carbon Dioxide (22-30) mmol/L BUN (9-20) mg/dL Creatinine (0.66-1.25) mg/dL Glucose (74-99) mg/dL POC Glucose (mg/dL) 113 H (70-110) mg/dL Calcium (8.4-10.2) mg/dL Phosphorus (2.5-4.5) mg/dL Magnesium (1.6-2.3) mg/dL Total Bilirubin (0.2-1.3) mg/dL AST (17-59) U/L ALT (4-49) U/L Alkaline Phosphatase (38-126) U/L Total Protein (6.3-8.2) g/dL Albumin (3.5-5.0) g/dL Crossmatch See Detail See Detail 09/09/23 09/09/23 09/09/23 Range/Units 18:17 19:52 22:04 RBC (4.30-5.90) m/uL Hgb (13.0-17.5) gm/dL Hct (39.0-53.0) % Plt Count (150-450) k/uL Lymphocytes # (1.0-4.8) k/uL Sodium (137-145) mmol/L Carbon Dioxide (22-30) mmol/L BUN (9-20) mg/dL Creatinine (0.66-1.25) mg/dL Glucose (74-99) mg/dL POC Glucose (mg/dL) 124 H 130 H 129 H (70-110) mg/dL Calcium (8.4-10.2) mg/dL Phosphorus (2.5-4.5) mg/dL Magnesium (1.6-2.3) mg/dL Total Bilirubin (0.2-1.3) mg/dL AST (17-59) U/L ALT (4-49) U/L Alkaline Phosphatase (38-126) U/L Total Protein (6.3-8.2) g/dL Albumin (3.5-5.0) g/dL Crossmatch 09/09/23 09/10/23 09/10/23 Range/Units 23:59 02:23 03:50 RBC 3.18 L (4.30-5.90) m/uL Hgb 10.0 L D (13.0-17.5) gm/dL Hct 30.4 L (39.0-53.0) % Plt Count 119 L (150-450) k/uL Lymphocytes # 0.8 L (1.0-4.8) k/uL Sodium (137-145) mmol/L Carbon Dioxide (22-30) mmol/L BUN (9-20) mg/dL Creatinine (0.66-1.25) mg/dL Glucose (74-99) mg/dL POC Glucose (mg/dL) 143 H 155 H (70-110) mg/dL Calcium (8.4-10.2) mg/dL Phosphorus (2.5-4.5) mg/dL Magnesium (1.6-2.3) mg/dL Total Bilirubin (0.2-1.3) mg/dL AST (17-59) U/L ALT (4-49) U/L Alkaline Phosphatase (38-126) U/L Total Protein (6.3-8.2) g/dL Albumin (3.5-5.0) g/dL Crossmatch 09/10/23 09/10/23 09/10/23 Range/Units 03:50 04:00 06:39 RBC (4.30-5.90) m/uL Hgb (13.0-17.5) gm/dL Hct (39.0-53.0) % Plt Count (150-450) k/uL Lymphocytes # (1.0-4.8) k/uL Sodium 135 L (137-145) mmol/L Carbon Dioxide 14 L (22-30) mmol/L BUN 63 H (9-20) mg/dL Creatinine 4.33 H (0.66-1.25) mg/dL Glucose 135 H (74-99) mg/dL POC Glucose (mg/dL) 143 H 137 H (70-110) mg/dL Calcium 7.6 L (8.4-10.2) mg/dL Phosphorus 6.4 H (2.5-4.5) mg/dL Magnesium 2.5 H (1.6-2.3) mg/dL Total Bilirubin 1.9 H (0.2-1.3) mg/dL AST 200 H (17-59) U/L ALT 141 H (4-49) U/L Alkaline Phosphatase 178 H (38-126) U/L Total Protein 5.1 L (6.3-8.2) g/dL Albumin 2.8 L (3.5-5.0) g/dL Crossmatch 09/10/23 09/10/23 Range/Units 08:24 10:45 RBC (4.30-5.90) m/uL Hgb (13.0-17.5) gm/dL Hct (39.0-53.0) % Plt Count (150-450) k/uL Lymphocytes # (1.0-4.8) k/uL Sodium (137-145) mmol/L Carbon Dioxide (22-30) mmol/L BUN (9-20) mg/dL Creatinine (0.66-1.25) mg/dL Glucose (74-99) mg/dL POC Glucose (mg/dL) 130 H 127 H (70-110) mg/dL Calcium (8.4-10.2) mg/dL Phosphorus (2.5-4.5) mg/dL Magnesium (1.6-2.3) mg/dL Total Bilirubin (0.2-1.3) mg/dL AST (17-59) U/L ALT (4-49) U/L Alkaline Phosphatase (38-126) U/L Total Protein (6.3-8.2) g/dL Albumin (3.5-5.0) g/dL Crossmatch Assessment and Plan Assessment: Acute on chronic systolic ejection of congestive heart failure with ejection fraction worsened 35% down to 25% Cardiogenic shock Acute kidney injury requiring hemodialysis Peripheral vascular disease Hypertension Hyperlipidemia Diabetes mellitus Bipolar disorder Plan: Continue with pressors per dental insurance biller will follow the clinical case closely Pulmonary/critical care team Continue with insulin drip Continue with amiodarone and aspirin and Plavix On metoprolol Several consultants on the case DVT prophylaxis with subcutaneous heparin GI prophylaxis with Protonix Prognosis is guarded
[2023-09-11 00:17] LABS: Glucose,Whole Blood 136 mg/dL (70-110)
[2023-09-11 02:02] LABS: Glucose,Whole Blood 133 mg/dL (70-110)
[2023-09-11 04:12] LABS: Glucose,Whole Blood 148 mg/dL (70-110)
[2023-09-11 04:18] LABS: HCT 29.6 % (39.0-53.0); HGB 9.5 gm/dL (13.0-17.5); MCH 31.2 pg (25.0-35.0); MCHC 32.1 g/dL (31.0-37.0); MCV 97.2 fL (80.0-100.0); Mean Platelet Volume 9.1; Platelet Count 128 k/uL (150-450); RBC 3.04 m/uL (4.30-5.90); RDW 15.3 % (11.5-15.5); WBC 11.9 k/uL (3.8-10.6)
[2023-09-11] MEDS ORDERED: DEXTROSE 50% SYRINGE 50 ML IVP PRN (04:20)
[2023-09-11 04:32] LABS: ALT 100 U/L (4-49); AST 102 U/L (17-59); African American GFR (CKD) 19 (>60 ml/min/1.73 sqM); Albumin 2.8 g/dL (3.5-5.0); Alkaline Phosphatase 177 U/L (38-126); Anion Gap 19 mmol/L; Blood Urea Nitrogen 53 mg/dL (9-20); Calcium 7.7 mg/dL (8.4-10.2); Carbon Dioxide 12 mmol/L (22-30); Chloride 101 mmol/L (98-107); Glucose 137 mg/dL (74-99); Magnesium 2.3 mg/dL (1.6-2.3); Non-African American GFR(CKD) 17 (>60 ml/min/1.73 sqM); Phosphorus 5.7 mg/dL (2.5-4.5); Potassium 4.3 mmol/L (3.5-5.1); Sodium 132 mmol/L (137-145); Total Protein 5.2 g/dL (6.3-8.2)
[2023-09-11 06:32] LABS: Glucose,Whole Blood 159 mg/dL (70-110)
[2023-09-11] MEDS: INSULIN DETEMIR (LEVEMIR) 100 UNIT/ML SYR SQ SCH (06:40)
[2023-09-11] MEDS: INSULIN ASPART (NovoLOG) 100 UNIT/ML VIAL SQ SCH (06:40)
--- NOTE | 2023-09-11 09:51 | XR ---
EXAMINATION TYPE: XR chest 1V portable DATE OF EXAM: 09/11/2023 5:22 AM CLINICAL INDICATION:Male, 63 years old with history of post cardiac surgery; FORMERLY [facility] COMPARISON: Chest radiographs from TECHNIQUE: XR chest 1V portable Frontal view of the chest. FINDINGS: EXAMINATION TYPE: XR chest 1V portable DATE OF EXAM: 09/11/2023 5:22 AM CLINICAL INDICATION:Male, 63 years old with history of post cardiac surgery; COMPARISON: One day prior TECHNIQUE: XR chest 1V portable Frontal view of the chest. FINDINGS: Lungs/Pleura: Small right pleural effusion with atelectasis changes. There is no evidence of left ple ural effusion, focal consolidation, or pneumothorax. Pulmonary vascularity: Unremarkable. Heart/mediastinum: Cardiomediastinal silhouette is enlarged and stable. Atherosclerotic calcificatio ns are seen in the aorta. Left atrial appendage occlusion device is present. Musculoskeletal: No acute osseous pathology. Other findings: None Lines/Tubes: There is a [place]-Isabell catheter sheath remaining. IMPRESSION: 1. Surgical changes with relatively stable exam. 2. Persistent small right pleural effusion with atelectasis.
--- NOTE | 2023-09-11 10:11 | P.PN ---
Subjective Progress Note Date: 09/11/23 Principal diagnosis: Triple-vessel coronary artery disease with left main disease. Previous medical history of hypertension, hyperlipidemia, diabetes mellitus, chronic systolic he art failure with reduced ejection fraction/ischemic cardiomyopathy, bipolar disorder, obesity, peripheral vascular disease, developmental delay, previous tobacco dependence, noncompliance POD #10 right heart catheterization, ultrasound guided access, placement of intra-aortic balloon pump from right femoral access performed by Dr. Monreal. POD #9 on pump coronary artery bypass grafting x 3, left internal thoracic artery (in-situ) sequential to diagonal and left anterior descending coronary ar summer, right greater saphenous vein from aorta to obtuse marginal artery #1, left atrial appendage ligation with #35mm AtriClip, endoscopic bilateral greater saphenous vein harvest, graft flow measurements using the [employer] [place]-stim flow meter system, trans-esophageal echo Postoperative acute blood loss anemia and thrombocytopenia, expected given hemodilution and cardiopulmonary bypass LEONARDO, status post placement of temp dialysis cath Elevated transaminases, likely due to hypoperfusion, trending down Cardiogenic shock The patient was seen and examined with Dr. Duque laying in bed this morning in no acute distress about to start dialysis. Currently in sinus rhythm, blood pressure stable, remains on dobutamine at 2.5 mics which was just stopped per Dr. Geiger. Started on midodrine by Dr. Richardson. Currently on room air with oxygen saturation in the high 90s. He did try his IS this morning but only able to achieve 500 mL one time. Right internal jugular cordis remains. Temporary dialysis cath placed Saturday in left groin, patient received dialysis Saturday and Saturday, about to receive dialysis today. Chest x-ray, labs reviewed. Kidney function slightly better after dialysis, only 10 mL urine output in the last 24 hours. He is more alert and awake this am and answering questions. Slow p rogress. Objective - Vital Signs Vital signs: Vital Signs Temp 98.2 F 09/11/23 08:55 Pulse 74 09/11/23 09:30 Resp 24 09/11/23 09:30 BP 105/60 09/11/23 09:30 Pulse Ox 97 09/11/23 09:30 FiO2 40 09/02/23 20:33 Intake & Output 09/10/23 09/11/23 09/11/23 18:59 06:59 18:59 Intake Total 1833.635 726 69 Output Total 910 0 15 Balance 923.635 726 54 Weight 92.2 kg Intake: IV 420 276 69 Lactated Ringers 1,000 ml 300 240 60 @ 20 mls/hr IV .Q24H [facility] Rx#:[id number] NS cardiac output 60 pressure bags 60 36 9 Intake, IV Titration 13.635 250 Amount DOBUTamine DRIP 500 mg In 250 Dextrose/Water 1 250ml. bag @ 2.5 MCG/KG/MIN 5. 963 mls/hr IV .Q24H [facility] Rx#:[id number] Insulin Regular 100 unit 13.635 In Sodium Chloride 0.9% 100 ml @ Per Protocol IV .Q0M [facility] Rx#:[id number] Oral 1000 200 Hemodialysis 400 Output: Urine 10 0 15 Hemodialysis 900 Other: Voiding Method Indwelling Catheter Indwelling Catheter Indwelling Catheter # Bowel Movements 1 ABP, PAP, CO, CI - Last Documented Arterial Blood Pressure 83/58 Pulmonary Artery Pressure 45/17 Cardiac Output 3.5 Cardiac Index 2 - Exam CONSTITUTIONAL: Appears comfortable, no acute distress RESPIRATORY: Lungs sounds diminished bilaterally. Respirations even, nonlabored. Currently on room air with oxygen saturation 96%. Poor effort with incentive spirometry, achieved 500 mL one time CARDIOVASCULAR: S1, S2 present. Regular rate and rhythm, sinus rhythm on telemetry. Sternum stable. Palpable peripheral pulses bilaterally. Generalized edema present. No calf pain or tenderness noted. Heart hugger, antiembolism stockings, SCDs present. GASTROINTESTINAL: Abdomen soft, nontender, nondistended. Active bowel sounds present 4 quadrants. Tolerating minimal diet. Positive bowel movement 4/2 GENITOURINARY: Hobson present, minimal output 10 mL in the last 24 hours. Left femoral dialysis cath present INTEGUMENTARY: Skin is warm and dry. Anterior chest incision well approximated. Bilateral lower extremity EVH sites well approximated without redness or drainage. NEUROLOGIC: Cranial nerves II through XII intact MUSKULOSKELETAL: Able to move all extremities, strength equal bilaterally, generalized weakness present although difficult to assess as patient isn't cooperating with care PSYCHIATRIC: Alert and oriented INVASIVE LINES AND TUBES: A/V epicardial pacemaker wires present, grounded. Right internal jugular cordis present. Last CVP 22 - Allied health notes Allied health notes reviewed: nursing - Labs CBC & Chem 7: 09/11/23 03:52 09/11/23 03:52 Labs: Abnormal Lab Results - Last 24 Hours (Table) 09/10/23 09/10/23 09/11/23 Range/Units 10:45 20:27 00:16 WBC (3.8-10.6) k/uL RBC (4.30-5.90) m/uL Hgb (13.0-17.5) gm/dL Hct (39.0-53.0) % Plt Count (150-450) k/uL Sodium (137-145) mmol/L Carbon Dioxide (22-30) mmol/L BUN (9-20) mg/dL Creatinine (0.66-1.25) mg/dL Glucose (74-99) mg/dL POC Glucose (mg/dL) 127 H 118 H 136 H (70-110) mg/dL Calcium (8.4-10.2) mg/dL Phosphorus (2.5-4.5) mg/dL Total Bilirubin (0.2-1.3) mg/dL AST (17-59) U/L ALT (4-49) U/L Alkaline Phosphatase (38-126) U/L Total Protein (6.3-8.2) g/dL Albumin (3.5-5.0) g/dL 09/11/23 09/11/23 09/11/23 Range/Units 02:00 03:52 03:52 WBC 11.9 H (3.8-10.6) k/uL RBC 3.04 L (4.30-5.90) m/uL Hgb 9.5 L (13.0-17.5) gm/dL Hct 29.6 L (39.0-53.0) % Plt Count 128 L (150-450) k/uL Sodium 132 L (137-145) mmol/L Carbon Dioxide 12 L (22-30) mmol/L BUN 53 H (9-20) mg/dL Creatinine 3.70 H (0.66-1.25) mg/dL Glucose 137 H (74-99) mg/dL POC Glucose (mg/dL) 133 H (70-110) mg/dL Calcium 7.7 L (8.4-10.2) mg/dL Phosphorus 5.7 H (2.5-4.5) mg/dL Total Bilirubin 2.0 H (0.2-1.3) mg/dL AST 102 H (17-59) U/L ALT 100 H (4-49) U/L Alkaline Phosphatase 177 H (38-126) U/L Total Protein 5.2 L (6.3-8.2) g/dL Albumin 2.8 L (3.5-5.0) g/dL 09/11/23 09/11/23 Range/Units 04:11 06:31 WBC (3.8-10.6) k/uL RBC (4.30-5.90) m/uL Hgb (13.0-17.5) gm/dL Hct (39.0-53.0) % Plt Count (150-450) k/uL Sodium (137-145) mmol/L Carbon Dioxide (22-30) mmol/L BUN (9-20) mg/dL Creatinine (0.66-1.25) mg/dL Glucose (74-99) mg/dL POC Glucose (mg/dL) 148 H 159 H (70-110) mg/dL Calcium (8.4-10.2) mg/dL Phosphorus (2.5-4.5) mg/dL Total Bilirubin (0.2-1.3) mg/dL AST (17-59) U/L ALT (4-49) U/L Alkaline Phosphatase (38-126) U/L Total Protein (6.3-8.2) g/dL Albumin (3.5-5.0) g/dL - Imaging and Cardiology Chest x-ray: report reviewed, image reviewed Assessment and Plan Assessment: Triple-vessel coronary artery disease with left main disease, status post three- vessel on pump CABG History of hypertension, currently hypotensive from vasoplegia Hyperlipidemia, treated, cholesterol 135, LDL 60, triglycerides 178 Diabetes mellitus, preoperative hemoglobin A1c 7.4% Chronic systolic heart failure with reduced ejection fraction/ischemic cardiomyopathy, EF 30-35%, preoperative placement of intra-aortic balloon pump Bipolar disorder Obesity Peripheral vascular disease, right FAIZAN 0.95, left FAIZAN 0.97 Developmental delay Previous tobacco dependence Moderate COPD, preoperative FEV1 55% of predicted Noncompliance Postoperative acute blood loss anemia and thrombocytopenia, expected Incidental finding of tiny left pneumothorax, not a complication, resolved LEONARDO, status post dialysis cath placement Elevated transaminases, cardiogenic shock, likely from hypoperfusion Plan: Continue aspirin, Plavix and beta-feliberto with hold parameters. Statin discontin ued due to elevated transaminases, will restart when able Dobutamine discontinued by Dr. Richardson. Will discontinue cordis Encourage use of incentive spirometry 10 times every hour while awake. Bronchod ilators per pulmonology Increase activity, ambulate as tolerated. PT/OT/cardiac rehab following, mary melendrez resistant to participate Will monitor daily labs and chest x-rays Dialysis per nephrology, dialysis daily, likely will need permacath Avoid nephrotoxins Pain control per current medication regimen. Avoid to Toradol. No narcotics Continue Hobson catheter for another 24 hours, continue to record strict accurate intake and output Insulin management per internal medicine GI/DVT prophylaxis Daily weights Encourage oral intake, supplements ordered Patient needs continued encouragement to participate in his care Prognosis remains very guarded More recommendations to follow based on patient's clinical course.
--- NOTE | 2023-09-11 11:00 | P.PN ---
Subjective Progress Note Date: 09/11/23 Principal diagnosis: Coronary artery disease. 63-year-old male patient, was brought into the intensive care unit after having an antibiotic balloon pump inserted this morning and this was done in preparation for coronary artery bypass surgery. The patient is known to have CAD, chronic CHF with impaired ejection fraction of 30 to 35%. The patient has been hospitalized with [facility] and an earlier cardiac catheterization from April 2023 showed a 70% left main, 70% proximal LAD, 30% circumflex and 70% obtuse marginal 1 and 60% mid RCA. The patient has impaired LV function with an EF around 30 to 35% along with mild to moderate MR, and severe pulm hypertension. The patient is scheduled to undergo coronary artery bypass surgery tomorrow. He is currently on room air oxygen. Free of any chest pain. Hemodynamically stable. Augmented blood pressure is around 80. He has some developmental delay and his other comorbid conditions include diabetes rachel litus type 2, hypertension and hyperlipidemia. Blood work shows a white cell count of 9, hemoglobin 11.8, platelet count of 206, normal coagulation profile, BUN of 27 with a creatinine of 1 and sodium levels at 138. LFTs are normal. His CAT scan of the chest that was done on 07/16/2023 showed cardiomegaly with small right and left-sided pleural effusion. This is consistent with CHF. No mediastinal lymphadenopathy. The patient is seen today September 02, 2023 in follow-up in the intensive care unit following surgery. He had undergone an on pump coronary artery bypass grafting x 3 with a left internal thoracic artery sequential to diagonal and the LAD. Right SVG from the aorta to the obtuse marginal #1. Left atrial appendage ligation and clipping. He remains intubated on the mechanical ventilator and assist-control mode at a rate of 14, tidal volume 500, FiO2 40% and a PEEP of 10. He remains on propofol at 20 mcg/kg/min. Lactated Ringer's at 50 MLS per hour. He is requiring vasopressin at 0.04 units/min. Insulin drip at 1 unit/h. Norepinephrine at 0.05 mcg/kg/min. Milrinone at 0.25 mcg/kg/min intra-aortic balloon pump remains in place. Mediastinal and right and left split chest tubes remain in place. Cardiac output is 4.7. Cardiac index 2.6. Received albumin. Receiving cefazolin. Heparin for DVT prophylaxis. White count 11.7. Hemoglobin 11.5. Platelets 84,000. INR 1.4. Sodium 141. Potassium 3.7. Bicarb 22. BUN 22. Creatinine 0.88. Glucose 101. X-ray no overt failure, pneumothorax or sizable consolidation. ABG's are pending. Patient was today on 09/03/2023, patient was extubated last night uneventfully, patient is now on 2 L nasal cannula, his intra-aortic balloon has been removed today patient remains on pressors and on inotropes. Still requiring norepinephrine at 0.02 mcg/kg/min still on milrinone 0.25 mcg/kg/min and on 0.04 units/min of vasopressin. Cardiac output today is 6.5 cardiac index is 3.7 PA pressure 41/17 CVP of 15. Continues to have mediastinal left and right-sided pleural chest tubes in place, had about 780 mL output since surgery. Chest x- ray is showing mostly postoperative changes labs were all reviewed. WBC count i s 15.2 hemoglobin 9.2. Basic metabolic profile is normal, creatinine 1.10 up from 0.88 yesterday Reevaluated today on 09/04/2023, patient remains in the ICU on 3 L nasal cannula, insulin drip at 1.5 units/h still receiving norepinephrine at 0.08 mcg/kg/min milrinone 0.1 mcg/kg/min vasopressin at 0.03 units/min. Cardiac output is 5.0 cardiac index 2.8, patient remains marginal at best, he is sitting at the bedside chair, does not seem to be in distress, on 3 L nasal cannula. Chest x- ray showed no evidence of pulmonary edema no evidence of pneumonia he does have a small tiny apical left pneumothorax. WBC count is 17.7 hemoglobin 9.4. Basic metabolic profile is normal however his BUN is 34 creatinine is 1.52, apparently the patient does have sustained some acute kidney injury most likely related to hypotension/acute tubular necrosis. Patient was reevaluated today on 09/05/2023, remains in the ICU, still requiring multiple drips, he is on dopamine at 2.5 mcg/kg/min norepinephrine at 0.03 mcg/kg/min vasopressin 0.03 units/min patient is also on insulin at 1.5 units/h. Cardiac index remains low at 1.9 cardiac output is relatively low at 3.4. Pulmonary artery pressure 44/18, CVP is 12. Patient does not seem to be very much motivated, he is achieving less than 500 cc on incentive spirometry. The last patient is on 2 L nasal cannula, refusing to participate in physical activity, refusing incentive spirometry, chest tubes, remain in place, prognosis remains guarded. Chest x-ray showed mostly bibasilar atelectasis, mild interstitial prominence, I doubt left-sided pneumothorax as documented by radiology Reevaluate today on 09/06/2023, patient is basically about the same. Patient is in the ICU, he is on multiple drips including higher dose of inotrope, milrinone 0.25 he is on norepinephrine at 0.02 mcg/kg/min vasopressin at 0.03 units/min dopamine at 2.5 mcg/kg/min dobutamine at 2.5 mcg/kg/min insulin at 2.5 units an hour, urine output is low, patient received albumin cardiac index is 2.9 today cardiac output is 5.9. His renal functioning is getting a bit worse, patient apparently the patient is developing what seems to be a cardiorenal syndrome. Chest x-ray is showing atelectasis and bibasilar pleural effusions. Patient is not motivated, does not seem to be interested in getting motivated. And been doing poorly with incentive spirometry Reevaluate today on 09/06, patient is basically about the same, he is now postoperative day #5, sitting at the bedside chair, patient is not motivated what bit remains on multiple inotropes and pressors, patient is receiving dopamine at 2.5 mcg/kg/min dobutamine at 5 mcg/kg/min norepinephrine at 0.06 mcg/kg/min vasopressin at 0.03 units/min and he is also on insulin at 3.5 units/h today he is off milrinone. Cardiac output is 3.8 cardiac index is 2.1 PA pressure 43/15 CVP is 13. Chest x-ray showed mostly atelectasis at the bases. No clear-cut evidence of pulmonary edema. Patient is maintained on 2 L nasal cannula, again the patient is doing extremely poorly with incentive spirometry and does not seem to be motivated at all. Renal functioning seems to be getting worse, his BUN is 63 creatinine 3.54, at this rate I am quite concerned with the patient may end up requiring hemodialysis. This is being addressed by nephrology on the case. Liver enzymes are improving Today on 09/08/2023, patient is now postoperative day #6. Patient is still requiring dobutamine at 0.5 mcg/kg/min, still requiring vasopressin at 0.02 units/min, his norepinephrine is presently on hold, and milrinone was disconti nued. Still on insulin at 3 units/h. Surprisingly the patient is not developing congestive heart failure, but he is developing worsening renal failure, and he may end up requiring renal replacement therapy. His PA pressure 40/18, his cardiac output is 3.9 cardiac index is 2.2 chest x-ray is showing bibasilar atelectasis and small left pleural effusion with a small right pleural effusion [place] remains in place WBC count is 6 hemoglobin 8.7 basic metabolic profile is normal except for bicarb of 15 and again worsening renal profile BUN is up to 71 creatinine 4.40 Progress note dated September 09, 2023. This is a 63-year-old male, who was seen today in room 266. The patient is status post three-vessel bypass grafting. He went to the operating room on September 01. He is currently on room air. He is receiving insulin at 2 units an hour. In addition, the patient is getting lactated Ringer's at 30 cc an hour, and dobutamine at 2.5 mcg/kg/min. The patient will have hemodialysis for the f irst time today. Current labs include a white count 6.8, hemoglobin 8.1, hematocrit 24.9, and a platelet count of 105,000. Sodium 135, potassium 4.6, chlorides 107, CO2 12, anion gap 16, BUN 79, creatinine 5.27. Glucose is 141. Calcium 7.6. AST is 300. ALT is 155. Albumin is 2.8. Chest x-ray shows cardiomegaly, with bilateral pleural effusions. Progress note dated September 10, 2023. This is a 63-year-old male who is seen in room 266. Currently, the patient is on room air. The patient is getting insulin drip at 3 units an hour, and continues on dobutamine for cardiovascular support at 5 mcg/kg/min. The patient is still not very motivated, to improve his overall clinical situation. He does poorly on his incentive spirometer. Current laboratory data includes a white count 8.7, hemoglobin 10 hematocrit 30.4, platelet count 119,000. Sodium 135, potassium 4.5, chlorides 104, CO2 14, anion gap 17, BUN 63, and creatinine 4.33. The most recent glucose was 127. AST is 200, ALT 141. Albumin 2.8. Calcium 7.6. The patient's chest x-ray shows some postoperative changes, but has been relatively stable. Progress note dated September 11, 2023. The patient is seen today in room 266. He is currently undergoing hemodialysis. The goal of hemodialysis today is removal of 1 L of fluid. Patient is on room air. The patient is getting saline at 20 cc an hour. The patient continues on dobutamine, for cardiovascular support at 2.5 mcg/kg/min. Current labs include a white count 11.9, hemoglobin 9.5, hematocrit 29.6, and a platelet count of 128,000. Sodium 132, potassium 4.3, chlorides 101, CO2 12, anion gap 19, BUN 53, creatinine 3.70. AST is 102. ALT is 100. Albumin is 2.8. Today's chest x-ray is very stable, and comparable to the x-ray done yesterday. Objective - Vital Signs Vital signs: Vital Signs Temp 98.2 F 09/11/23 08:55 Pulse 73 09/11/23 10:00 Resp 21 09/11/23 10:00 BP 113/64 09/11/23 10:00 Pulse Ox 96 09/11/23 10:00 FiO2 40 09/02/23 20:33 Intake & Output 09/10/23 09/11/23 09/11/23 18:59 06:59 18:59 Intake Total 1833.635 726 92 Output Total 910 0 15 Balance 923.635 726 77 Weight 92.2 kg Intake: IV 420 276 92 Lactated Ringers 1,000 ml 300 240 80 @ 20 mls/hr IV .Q24H [facility]AID Rx#:[id number] NS cardiac output 60 pressure bags 60 36 12 Intake, IV Titration 13.635 250 Amount DOBUTamine DRIP 500 mg In 250 Dextrose/Water 1 250ml. bag @ 2.5 MCG/KG/MIN 5. 963 mls/hr IV .Q24H [facility]AID Rx#:[id number] Insulin Regular 100 unit 13.635 In Sodium Chloride 0.9% 100 ml @ Per Protocol IV .Q0M [facility]AID Rx#:[id number] Oral 1000 200 Hemodialysis 400 Output: Urine 10 0 15 Hemodialysis 900 Other: Voiding Method Indwelling Catheter Indwelling Catheter Indwelling Catheter # Bowel Movements 1 ABP, PAP, CO, CI - Last Documented Arterial Blood Pressure 83/58 Pulmonary Artery Pressure 45/17 Cardiac Output 3.5 Cardiac Index 2 - Exam No acute distress, oriented 3. Currently on room air. HEENT examination is grossly unremarkable. Mucous membranes are moist. No oral lesions. Neck supple. Full range of motion. No adenopathy thyromegaly or neck vein distention. Cardiovascular examination reveals regular rhythm rate. S1-S2 normal. No S3 or S4. No discernible murmur noted. Heart sounds are distant. Heart rate 73 bpm. Lungs reveal scattered rhonchi. No wheezes or crackles. Breath sounds equal bilaterally. Saturation is 96% on room air. Abdomen soft, but obese, with bowel sounds. No masses or tenderness. Extremities are intact. No cyanosis clubbing or edema. Skin is without rash or lesion. Neurologic examination is brief but nonfocal. - Labs CBC & Chem 7: 09/11/23 03:52 09/11/23 03:52 Labs: Abnormal Lab Results - Last 24 Hours (Table) 09/10/23 09/11/23 09/11/23 Range/Units 20:27 00:16 02:00 WBC (3.8-10.6) k/uL RBC (4.30-5.90) m/uL Hgb (13.0-17.5) gm/dL Hct (39.0-53.0) % Plt Count (150-450) k/uL Sodium (137-145) mmol/L Carbon Dioxide (22-30) mmol/L BUN (9-20) mg/dL Creatinine (0.66-1.25) mg/dL Glucose (74-99) mg/dL POC Glucose (mg/dL) 118 H 136 H 133 H (70-110) mg/dL Calcium (8.4-10.2) mg/dL Phosphorus (2.5-4.5) mg/dL Total Bilirubin (0.2-1.3) mg/dL AST (17-59) U/L ALT (4-49) U/L Alkaline Phosphatase (38-126) U/L Total Protein (6.3-8.2) g/dL Albumin (3.5-5.0) g/dL 09/11/23 09/11/23 09/11/23 Range/Units 03:52 03:52 04:11 WBC 11.9 H (3.8-10.6) k/uL RBC 3.04 L (4.30-5.90) m/uL Hgb 9.5 L (13.0-17.5) gm/dL Hct 29.6 L (39.0-53.0) % Plt Count 128 L (150-450) k/uL Sodium 132 L (137-145) mmol/L Carbon Dioxide 12 L (22-30) mmol/L BUN 53 H (9-20) mg/dL Creatinine 3.70 H (0.66-1.25) mg/dL Glucose 137 H (74-99) mg/dL POC Glucose (mg/dL) 148 H (70-110) mg/dL Calcium 7.7 L (8.4-10.2) mg/dL Phosphorus 5.7 H (2.5-4.5) mg/dL Total Bilirubin 2.0 H (0.2-1.3) mg/dL AST 102 H (17-59) U/L ALT 100 H (4-49) U/L Alkaline Phosphatase 177 H (38-126) U/L Total Protein 5.2 L (6.3-8.2) g/dL Albumin 2.8 L (3.5-5.0) g/dL 09/11/23 Range/Units 06:31 WBC (3.8-10.6) k/uL RBC (4.30-5.90) m/uL Hgb (13.0-17.5) gm/dL Hct (39.0-53.0) % Plt Count (150-450) k/uL Sodium (137-145) mmol/L Carbon Dioxide (22-30) mmol/L BUN (9-20) mg/dL Creatinine (0.66-1.25) mg/dL Glucose (74-99) mg/dL POC Glucose (mg/dL) 159 H (70-110) mg/dL Calcium (8.4-10.2) mg/dL Phosphorus (2.5-4.5) mg/dL Total Bilirubin (0.2-1.3) mg/dL AST (17-59) U/L ALT (4-49) U/L Alkaline Phosphatase (38-126) U/L Total Protein (6.3-8.2) g/dL Albumin (3.5-5.0) g/dL Assessment and Plan Assessment: Postop day #8, status post three-vessel bypass grafting. Routine postoperative ventilator management. Chronic systolic CHF, with an ejection fraction of 30 to 35%. Cardiogenic shock and severe LV dysfunction. Peripheral vascular disease. Type 2 diabetes mellitus. Essential hypertension. Hyperlipidemia. History of developmental delay. Bipolar disorder. Chronic anxiety. Prior history of tobacco use. Left apical pneumothorax. Acute kidney injury/ATN, currently requiring hemodialysis. Severe cardiomyopathy. Severe metabolic acidosis. Plan: Plan dated September 09, 2023. The patient is seen today in room 266. He is currently on room air. He is on an insulin drip at 2 units an hour. In addition, for cardiovascular support, he is on dobutamine at 2.5 mcg/kg/min. He is getting lactated Ringer's at 30 cc an hour. Unfortunately, his kidneys have failed, and he will have hemodialysis for the first time today. We will continue to follow, make recommendations along the way. Labs, x-rays, medications are all reviewed. The patient's overall prognosis remains guarded. Plan dated September 10, 2023. The patient is seen today in room 266. The patient continues on an insulin drip at 3 units an hour, and also is on dobutamine, for cardiovascular support at 5 mcg/kg/min. The patient's overall clinical situation remains about the same. He is not particularly motivated at this point. The patient does poorly on his incentive spirometer. Labs, x-rays, and medications are reviewed. We will continue to follow the patient, make recommendations along the way. Prognosis is certainly guarded. Plan dated September 11, 2023. The patient is seen today in room 266. The patient continues on dobutamine at 2.5 mcg/kg/min. The patient is on room air. He is currently undergoing he modialysis, with a goal today of removing 1 L of fluid. The patient is also getting saline at 20 cc an hour. Labs, x-rays, and medications are reviewed. The patient is not particularly motivated to get better. He does very poorly on his incentive spirometer. We will continue to follow and make recommendations along the way. Prognosis is currently guarded. Time with Patient: Greater than 30
[2023-09-11 11:33] LABS: Glucose,Whole Blood 98 mg/dL (70-110)
--- NOTE | 2023-09-11 11:56 | P.PN ---
Subjective patient is seen for follow-up for acute kidney injury, oliguric hemodynamic ATN. Status post coronary artery bypass surgery on 09/02/2023 Patient is maintained on dobutamine EF is 20-25%. Patient remains oliguric with no response to high-dose loop diuretics. started hemodialysis on 09/09/2023. Scheduled for third treatment today. patient is seen on hemodialysis. Tolerating treatment well. UF about 2 L Objective - Vital Signs Vital signs: Vital Signs Temp 98.2 F 09/11/23 08:55 Pulse 70 09/11/23 11:00 Resp 17 09/11/23 11:00 BP 103/55 09/11/23 11:00 Pulse Ox 96 09/11/23 10:00 FiO2 40 09/02/23 20:33 Intake & Output 09/10/23 09/11/23 09/11/23 18:59 06:59 18:59 Intake Total 1833.635 726 115 Output Total 910 0 15 Balance 923.635 726 100 Weight 92.2 kg Intake: IV 420 276 115 Lactated Ringers 1,000 ml 300 240 100 @ 20 mls/hr IV .Q24H [facility] Rx#:[id number] NS cardiac output 60 pressure bags 60 36 15 Intake, IV Titration 13.635 250 Amount DOBUTamine DRIP 500 mg In 250 Dextrose/Water 1 250ml. bag @ 2.5 MCG/KG/MIN 5. 963 mls/hr IV .Q24H [facility] Rx#:[id number] Insulin Regular 100 unit 13.635 In Sodium Chloride 0.9% 100 ml @ Per Protocol IV .Q0M [facility] Rx#:[id number] Oral 1000 200 Hemodialysis 400 Output: Urine 10 0 15 Hemodialysis 900 Other: Voiding Method Indwelling Catheter Indwelling Catheter Indwelling Catheter # Bowel Movements 1 ABP, PAP, CO, CI - Last Documented Arterial Blood Pressure 83/58 Pulmonary Artery Pressure 45/17 Cardiac Output 3.5 Cardiac Index 2 - Exam patient is awake, comfortable. No acute distress Examination of the heart S1 and S2 Examination of the lungs decreased breath sounds at the bases Abdomen is soft Examination of lower extremities shows 1+ edema with significant scrotal edema - Labs CBC & Chem 7: 09/11/23 03:52 09/11/23 03:52 Labs: Abnormal Lab Results - Last 24 Hours (Table) 04/08/0309/11/23 09/11/23 Range/Units 20:27 00:16 02:00 WBC (3.8-10.6) k/uL RBC (4.30-5.90) m/uL Hgb (13.0-17.5) gm/dL Hct (39.0-53.0) % Plt Count (150-450) k/uL Sodium (137-145) mmol/L Carbon Dioxide (22-30) mmol/L BUN (9-20) mg/dL Creatinine (0.66-1.25) mg/dL Glucose (74-99) mg/dL POC Glucose (mg/dL) 118 H 136 H 133 H (70-110) mg/dL Calcium (8.4-10.2) mg/dL Phosphorus (2.5-4.5) mg/dL Total Bilirubin (0.2-1.3) mg/dL AST (17-59) U/L ALT (4-49) U/L Alkaline Phosphatase (38-126) U/L Total Protein (6.3-8.2) g/dL Albumin (3.5-5.0) g/dL 09/11/23 09/11/23 09/11/23 Range/Units 03:52 03:52 04:11 WBC 11.9 H (3.8-10.6) k/uL RBC 3.04 L (4.30-5.90) m/uL Hgb 9.5 L (13.0-17.5) gm/dL Hct 29.6 L (39.0-53.0) % Plt Count 128 L (150-450) k/uL Sodium 132 L (137-145) mmol/L Carbon Dioxide 12 L (22-30) mmol/L BUN 53 H (9-20) mg/dL Creatinine 3.70 H (0.66-1.25) mg/dL Glucose 137 H (74-99) mg/dL POC Glucose (mg/dL) 148 H (70-110) mg/dL Calcium 7.7 L (8.4-10.2) mg/dL Phosphorus 5.7 H (2.5-4.5) mg/dL Total Bilirubin 2.0 H (0.2-1.3) mg/dL AST 102 H (17-59) U/L ALT 100 H (4-49) U/L Alkaline Phosphatase 177 H (38-126) U/L Total Protein 5.2 L (6.3-8.2) g/dL Albumin 2.8 L (3.5-5.0) g/dL 09/11/23 Range/Units 06:31 WBC (3.8-10.6) k/uL RBC (4.30-5.90) m/uL Hgb (13.0-17.5) gm/dL Hct (39.0-53.0) % Plt Count (150-450) k/uL Sodium (137-145) mmol/L Carbon Dioxide (22-30) mmol/L BUN (9-20) mg/dL Creatinine (0.66-1.25) mg/dL Glucose (74-99) mg/dL POC Glucose (mg/dL) 159 H (70-110) mg/dL Calcium (8.4-10.2) mg/dL Phosphorus (2.5-4.5) mg/dL Total Bilirubin (0.2-1.3) mg/dL AST (17-59) U/L ALT (4-49) U/L Alkaline Phosphatase (38-126) U/L Total Protein (6.3-8.2) g/dL Albumin (3.5-5.0) g/dL Assessment and Plan Assessment: 1. Acute kidney injury secondary to ATN secondary to hypotension/cardiogenic shock. Baseline creatinine near 1. Oliguric, with no response to high-dose loop diuretics. UA fairly benign. started renal replacement therapy on 09/09/2023. 2. Coronary artery disease status post CABG x 3 September 02, 2023. 3. Shock maintained on Levophed, vasopressin, dopamine and dobutamine. 4. Cardiomyopathy with reduced ejection fraction. EF 25-20% 5. Metabolic acidosis secondary to acute kidney injury. patient remains is significantly acidotic even after 2 treatments of hemodialysis. 6. Cardiomyopathy with EF 20-25% Plan: continue with daily dialysis Increase oral sodium bicarb Increase UF as tolerated with hemodialysis. check lactic acid and CK
[2023-09-11 17:08] LABS: Glucose,Whole Blood 80 mg/dL (70-110)
[2023-09-11] MEDS: SODIUM BICARBONATE TAB 650 MG TAB PO SCH (17:59)
[2023-09-11 20:12] LABS: Glucose,Whole Blood 137 mg/dL (70-110)
--- NOTE | 2023-09-11 20:59 | PN ---
PROGRESS NOTE SUBJECTIVE: Wse is a 63-year-old gentleman with coronary artery disease, status post prior bypass surgery, renal failure, on dialysis. He received dialysis yesterday, seems more alert and much more cheerful today. Continues to have leg edema. CURRENT MEDICATIONS: Include, 1. Aspirin. 2. Plavix. 3. Lopressor 12.5 b.i.d. 4. Midodrine. 5. The patient was on dobutamine, which I am going to stop today. PHYSICAL EXAMINATION: VITAL SIGNS: Heart rate is 70 beats per minute, blood pressure is 113/64, respiratory rate is 18. CHEST: Reveals good air entry bilaterally. HEART: Reveals first and second heart sounds. No gallop. ABDOMEN: Soft. EXTREMITIES: Reveals bilateral pitting edema. LABORATORY DATA: Show potassium of 4.3, BUN is 53, creatinine is 3.7, hemoglobin is 9.5. ASSESSMENT: 1. Coronary artery disease, status post bypass surgery. 2. Acute renal failure, on hemodialysis. PLAN: The patient is definitely looking better today than he did over the last 2 days. Dialysis had been initiated and it will be continued. MMODL / IJN: [id number] /
--- NOTE | 2023-09-11 23:11 | P.PN ---
Subjective Progress Note Date: 09/08/23 63-year-old gentleman with past medical history significant for coronary artery disease, chronic congestive heart failure with ejection fraction of 30%, hypertension hyperlipidemia diabetes mellitus obesity bipolar disorder cardiomyopathy developmental delay history of nicotine dependence who has been admitted with shortness of breath and lower extremity edema. Patient underwent cardiac catheterization right heart catheterization and intra-aortic balloon pump. * Patient has comorbidities including diabetes mellitus type 2, peripheral arterial disease, bipolar disorder, history of anxiety. * Patient to undergo myocardial revascularization 09/02/2023. * 09/03/23 : Patient admitted to medical ICU. Patient was successfully extubated postprocedure. S/p intra-aortic balloon pump which remains in place through right femoral access. Patient remains on norepinephrine drip, Primacor drip, vasopressin. Bilateral chest tubes remained in place. Followed up by medical ICU and cardiac surgery. Follow-up blood work obtained including WBC 15.2 hemoglobin 9.2 platelet count of 98, serum chemistry sodium 141 potassium 4.7 carbon dioxide 24 BUN 26 creatinine 1.1 blood glucose 118-1 33 * 09/04/23: Patient seen and evaluated in medical ICU room 266, patient continues to remain on Levophed, vasopressin and pressor support. Blood work reviewed WBC 17.7 hemoglobin 9.4 platelet 117. Serum chemistry showed sodium 137 potassium 4.9 carbon dioxide 18 BUN 34 creatinine 1.52 blood glucose 123. Overnight patient was refusing to participate with care, patient counseled by cardiac surgery team as well. Brother at bedside, patient does follow co mmands, care plan discussed with nursing staff * 09/05/23: Patient seen and evaluated bedside, vitals reviewed blood pressure running in the 90s overnight. Patient remains on 2 L of oxygen. Blood work reviewed CBC shows WBC 14.3 hemoglobin 9.3 platelet 105 serum chemistry sodium 137 potassium 5.2 carbon dioxide 16 BUN 44 creatinine 1.99 total bilirubin 1.3 AST 464 ALT 128 will need to be monitored, p.atient remains lethargic however easily arousable 09/06/2023 -- Patient is seen and evaluated in ICU at bedside Vital signs reviewed and temperature of 97.9, pulse 90, respiration 14 and blood pressure of 110/40 Lab review shows WBC 14.2, hemoglobin of 8.7 and platelet count of 109, sodium 136, potassium 4.8, BUNs/creatinine of 54/2.91; concern about worsening renal fu nction likely related to cardiorenal syndrome; dopamine has been discontinued Chest x-ray reveals atelectasis and bibasilar pleural effusion --Patient remains on pressors and inotropic agents; cardiac index and cardiac output is being monitored closely -Patient remains on Plavix, aspirin, statins and beta-blockers -- Recommended to increase activity 09/07/2023 ---patient is basically about the same, he is now postoperative day #5, sitting at the bedside chair, patient is not motivated what bit remains on multiple inotropes and pressors, patient is receiving dopamine at 2.5 mcg/kg/min dobutamine at 5 mcg/kg/min norepinephrine at 0.06 mcg/kg/min vasopressin at 0.03 units/min and he is also on insulin at 3.5 units/h today he is off milrinone. Chest x-ray showed mostly atelectasis at the bases. No clear-cut evidence of pulmonary edema. Patient is maintained on 2 L nasal cannula, again the patient is doing extremely poorly with incentive spirometry and does not seem to be motivated at all. Renal functioning seems to be getting worse, his BUN is 63 creatinine 3.54, at this rate I am quite concerned with the patient may end up requiring hemodialysis. This is being addressed by nephrology on the case. Liver enzymes are improving Continue pressors and inotropes continue to monitor cardiac index and cardiac output Continue dopamine, continue dobutamine, patient is off milrinone today. However he is still requiring norepinephrine and vasopressin Continue Plavix beta-blockers aspirin and statin Titrate pressors and inotropes as tolerated 09/08/2023 --patient is seen and evaluated with family at bedside; now postoperative day # 6. -- Patient is still requiring dobutamine at 0.5 mcg/kg/min, still requiring vasopressin at 0.02 units/min, his norepinephrine is presently on hold, and milrinone was discontinued. Still on insulin at 3 units/h. -- chest x-ray is showing bibasilar atelectasis and small left pleural effusion with a small right pleural effusion -- WBC count is 6 hemoglobin 8.7 basic metabolic profile is normal except for bicarb of 15 and again worsening renal profile BUN is up to 71 creatinine 4.40 -Renal function continues to worsen; nephrology on board and planning to continue with IV Lasix and oral sodium bicarbonate; plan for possible hemodialysis in a.m. if urine output does not improve 09/09/2023 Patient is awake alert but looks very tired and lethargic lying in chair. No significant chest pain. Patient has average appetite No significant dyspnea but looks very weak Patient required pressors Patient planned and considered for hemodialysis given his worsening renal function today 5.2 compared with 1.5 upon admission He has severe cardiomyopathy with ejection fraction 20 to 25% and currently on aspirin and Plavix and amiodarone drip. Also he required pressors as above, cardiology following closely. 09/10/2023 Patient still lethargic still sitting in chair No much difference clinically from yesterday A plan to undergo hemodialysis today for first-line, hemodialysis catheter in place. Patient is oliguric. He is currently getting dobutamine and insulin drip 3 units/h He is also on aspirin and Plavix and metoprolol 09/11/2023 Patient remains very lethargic No new complaint He remains on dobutamine drip at 2.5 He is getting the third round of hemodialysis today His insulin drip switched to sliding scale and Levemir Continue with dual antiplatelet therapy Labs showing stable hemoglobin 9.5. Platelet 1 28,000 Objective - Vital Signs Vital signs: Vital Signs Temp 98.1 F 09/11/23 12:45 Pulse 70 09/11/23 12:45 Resp 20 09/11/23 12:45 BP 105/55 09/11/23 12:45 Pulse Ox 96 09/11/23 10:00 FiO2 40 09/02/23 20:33 Intake & Output 09/10/23 09/11/23 09/11/23 18:59 06:59 18:59 Intake Total 1833.635 726 538 Output Total 910 0 2014 Balance 923.635 726 -9997 Weight 92.2 kg Intake: IV 420 276 138 Lactated Ringers 1,000 ml 300 240 120 @ 20 mls/hr IV .Q24H [facility] Rx#:[id number] NS cardiac output 60 pressure bags 60 36 18 Intake, IV Titration 13.635 250 Amount DOBUTamine DRIP 500 mg In 250 Dextrose/Water 1 250ml. bag @ 2.5 MCG/KG/MIN 5. 963 mls/hr IV .Q24H [facility] Rx#:[id number] Insulin Regular 100 unit 13.635 In Sodium Chloride 0.9% 100 ml @ Per Protocol IV .Q0M [facility] Rx#:[id number] Oral 1000 200 Hemodialysis 400 400 Output: Urine 10 0 15 Hemodialysis 900 2000 Other: Voiding Method Indwelling Catheter Indwelling Catheter Indwelling Catheter # Bowel Movements 1 ABP, PAP, CO, CI - Last Documented Arterial Blood Pressure 83/58 Pulmonary Artery Pressure 45/17 Cardiac Output 3.5 Cardiac Index 2 - Exam -GENERAL: The patient is alert and oriented x3, not in any acute distress. Well developed, well nourished. Lethargic and weak HEENT: Pupils are round and equally reacting to light. EOMI. No scleral icterus. No conjunctival pallor. Normocephalic, atraumatic. No pharyngeal erythema. No thyromegaly. CARDIOVASCULAR: S1 and S2 present. No murmurs, rubs, or gallops. PULMONARY: Chest is clear to auscultation, no wheezing , no crackles. ABDOMEN: Soft, nontender, nondistended, normoactive bowel sounds. No palpable organomegaly. MUSCULOSKELETAL: No joint swelling or deformity. -EXTREMITIES: No cyanosis, clubbing, bilateral pitting leg edema.-follow-up with wound service at the [facility] We recommend close monitoring of this metabolic panel (BMP ) while patient is on Lasix, also monitoring of complete cell count (CBC) NEUROLOGICAL: Gross neurological examination did not reveal any focal deficits. SKIN: No rashes. no petechiae. - Labs CBC & Chem 7: 09/11/23 03:52 09/11/23 03:52 Labs: Abnormal Lab Results - Last 24 Hours (Table) 09/10/23 09/11/23 09/11/23 Range/Units 20:27 00:16 02:00 WBC (3.8-10.6) k/uL RBC (4.30-5.90) m/uL Hgb (13.0-17.5) gm/dL Hct (39.0-53.0) % Plt Count (150-450) k/uL Sodium (137-145) mmol/L Carbon Dioxide (22-30) mmol/L BUN (9-20) mg/dL Creatinine (0.66-1.25) mg/dL Glucose (74-99) mg/dL POC Glucose (mg/dL) 118 H 136 H 133 H (70-110) mg/dL Calcium (8.4-10.2) mg/dL Phosphorus (2.5-4.5) mg/dL Total Bilirubin (0.2-1.3) mg/dL AST (17-59) U/L ALT (4-49) U/L Alkaline Phosphatase (38-126) U/L Creatine Kinase (55-170) U/L Total Protein (6.3-8.2) g/dL Albumin (3.5-5.0) g/dL 09/11/23 09/11/23 09/11/23 Range/Units 03:52 03:52 04:11 WBC 11.9 H (3.8-10.6) k/uL RBC 3.04 L (4.30-5.90) m/uL Hgb 9.5 L (13.0-17.5) gm/dL Hct 29.6 L (39.0-53.0) % Plt Count 128 L (150-450) k/uL Sodium 132 L (137-145) mmol/L Carbon Dioxide 12 L (22-30) mmol/L BUN 53 H (9-20) mg/dL Creatinine 3.70 H (0.66-1.25) mg/dL Glucose 137 H (74-99) mg/dL POC Glucose (mg/dL) 148 H (70-110) mg/dL Calcium 7.7 L (8.4-10.2) mg/dL Phosphorus 5.7 H (2.5-4.5) mg/dL Total Bilirubin 2.0 H (0.2-1.3) mg/dL AST 102 H (17-59) U/L ALT 100 H (4-49) U/L Alkaline Phosphatase 177 H (38-126) U/L Creatine Kinase (55-170) U/L Total Protein 5.2 L (6.3-8.2) g/dL Albumin 2.8 L (3.5-5.0) g/dL 09/11/23 09/11/23 Range/Units 06:31 12:15 WBC (3.8-10.6) k/uL RBC (4.30-5.90) m/uL Hgb (13.0-17.5) gm/dL Hct (39.0-53.0) % Plt Count (150-450) k/uL Sodium (137-145) mmol/L Carbon Dioxide (22-30) mmol/L BUN (9-20) mg/dL Creatinine (0.66-1.25) mg/dL Glucose (74-99) mg/dL POC Glucose (mg/dL) 159 H (70-110) mg/dL Calcium (8.4-10.2) mg/dL Phosphorus (2.5-4.5) mg/dL Total Bilirubin (0.2-1.3) mg/dL AST (17-59) U/L ALT (4-49) U/L Alkaline Phosphatase (38-126) U/L Creatine Kinase 616 H (55-170) U/L Total Protein (6.3-8.2) g/dL Albumin (3.5-5.0) g/dL Assessment and Plan Assessment: Acute on chronic systolic ejection of congestive heart failure with ejection fraction worsened 35% down to 25% Cardiogenic shock Acute kidney injury requiring hemodialysis Peripheral vascular disease Hypertension Hyperlipidemia Diabetes mellitus Bipolar disorder Plan: Continue with pressors per room service waiter will follow the clinical case closely Pulmonary/critical care team Continue with insulin drip Continue with amiodarone and aspirin and Plavix On metoprolol Several consultants on the case DVT prophylaxis with subcutaneous heparin GI prophylaxis with Protonix Prognosis is guarded
[2023-09-12 05:20] LABS: Anisocytosis Slight; HCT 30.3 % (39.0-53.0); HGB 9.8 gm/dL (13.0-17.5); Hypochromasia Slight; MCH 31.2 pg (25.0-35.0); MCHC 32.3 g/dL (31.0-37.0); MCV 96.5 fL (80.0-100.0); Macrocytosis Slight; Mean Platelet Volume 9.6; Platelet Count 142 k/uL (150-450); RBC 3.14 m/uL (4.30-5.90); RDW 16.3 % (11.5-15.5)
[2023-09-12 05:39] LABS: ALT 83 U/L (4-49); AST 86 U/L (17-59); African American GFR (CKD) 25 (>60 ml/min/1.73 sqM); Albumin 2.8 g/dL (3.5-5.0); Alkaline Phosphatase 187 U/L (38-126); Anion Gap 12 mmol/L; Blood Urea Nitrogen 46 mg/dL (9-20); Calcium 7.8 mg/dL (8.4-10.2); Carbon Dioxide 20 mmol/L (22-30); Chloride 99 mmol/L (98-107); Glucose 66 mg/dL (74-99); Non-African American GFR(CKD) 22 (>60 ml/min/1.73 sqM); Potassium 3.8 mmol/L (3.5-5.1); Sodium 131 mmol/L (137-145); Total Bilirubin 1.9 mg/dL (0.2-1.3); Total Protein 5.5 g/dL (6.3-8.2)
[2023-09-12 06:47] LABS: Glucose,Whole Blood 74 mg/dL (70-110)
[2023-09-12] MEDS: POTASSIUM CHLORIDE ER 20 MEQ TAB.ER PO STA (07:37)
--- NOTE | 2023-09-12 08:28 | XR ---
EXAMINATION TYPE: XR chest 1V portable DATE OF EXAM: 09/12/2023 4:43 AM CLINICAL INDICATION:Male, 63 years old with history of post cardiac surgery; [facility] COMPARISON: Chest radiograph from one day prior. TECHNIQUE: XR chest 1V portable Frontal view of the chest. FINDINGS: Lungs/Pleura: Small right pleural effusion with atelectasis changes. Minimal left basilar atelectasis . There is no evidence of left pleural effusion, focal consolidation, or pneumothorax. Pulmonary vascularity: Unremarkable. Heart/mediastinum: Cardiomediastinal silhouette is enlarged and stable. Atherosclerotic calcificatio ns are seen in the aorta. Left atrial appendage occlusion device is present. Musculoskeletal: No acute osseous pathology. Other findings: None Lines/Tubes: There is a [place] catheter sheath remaining. IMPRESSION: 1. Surgical changes with relatively stable exam. 2. Persistent small right pleural effusion with atelectasis.
--- NOTE | 2023-09-12 10:27 | P.PN ---
Subjective Progress Note Date: 09/12/23 Principal diagnosis: Coronary artery disease. 63-year-old male patient, was brought into the intensive care unit after having an antibiotic balloon pump inserted this morning and this was done in preparation for coronary artery bypass surgery. The patient is known to have CAD, chronic CHF with impaired ejection fraction of 30 to 35%. The patient has been hospitalized with [facility] and an earlier cardiac catheterization from April 2023 showed a 70% left main, 70% proximal LAD, 30% circumflex and 70% obtuse marginal 1 and 60% mid RCA. The patient has impaired LV function with an EF around 30 to 35% along with mild to moderate MR, and severe pulm hypertension. The patient is scheduled to undergo coronary artery bypass surgery tomorrow. He is currently on room air oxygen. Free of any chest pain. Hemodynamically stable. Augmented blood pressure is around 80. He has some developmental delay and his other comorbid conditions include diabetes rachel litus type 2, hypertension and hyperlipidemia. Blood work shows a white cell count of 9, hemoglobin 11.8, platelet count of 206, normal coagulation profile, BUN of 27 with a creatinine of 1 and sodium levels at 138. LFTs are normal. His CAT scan of the chest that was done on 07/16/2023 showed cardiomegaly with small right and left-sided pleural effusion. This is consistent with CHF. No mediastinal lymphadenopathy. The patient is seen today September 02, 2023 in follow-up in the intensive care unit following surgery. He had undergone an on pump coronary artery bypass grafting x 3 with a left internal thoracic artery sequential to diagonal and the LAD. Right SVG from the aorta to the obtuse marginal #1. Left atrial appendage ligation and clipping. He remains intubated on the mechanical ventilator and assist-control mode at a rate of 14, tidal volume 500, FiO2 40% and a PEEP of 10. He remains on propofol at 20 mcg/kg/min. Lactated Ringer's at 50 MLS per hour. He is requiring vasopressin at 0.04 units/min. Insulin drip at 1 unit/h. Norepinephrine at 0.05 mcg/kg/min. Milrinone at 0.25 mcg/kg/min intra-aortic balloon pump remains in place. Mediastinal and right and left split chest tubes remain in place. Cardiac output is 4.7. Cardiac index 2.6. Received albumin. Receiving cefazolin. Heparin for DVT prophylaxis. White count 11.7. Hemoglobin 11.5. Platelets 84,000. INR 1.4. Sodium 141. Potassium 3.7. Bicarb 22. BUN 22. Creatinine 0.88. Glucose 101. X-ray no overt failure, pneumothorax or sizable consolidation. ABG's are pending. Patient was today on 09/03/2023, patient was extubated last night uneventfully, patient is now on 2 L nasal cannula, his intra-aortic balloon has been removed today patient remains on pressors and on inotropes. Still requiring norepinephrine at 0.02 mcg/kg/min still on milrinone 0.25 mcg/kg/min and on 0.04 units/min of vasopressin. Cardiac output today is 6.5 cardiac index is 3.7 PA pressure 41/17 CVP of 15. Continues to have mediastinal left and right-sided pleural chest tubes in place, had about 780 mL output since surgery. Chest x- ray is showing mostly postoperative changes labs were all reviewed. WBC count i s 15.2 hemoglobin 9.2. Basic metabolic profile is normal, creatinine 1.10 up from 0.88 yesterday Reevaluated today on 09/04/2023, patient remains in the ICU on 3 L nasal cannula, insulin drip at 1.5 units/h still receiving norepinephrine at 0.08 mcg/kg/min milrinone 0.1 mcg/kg/min vasopressin at 0.03 units/min. Cardiac output is 5.0 cardiac index 2.8, patient remains marginal at best, he is sitting at the bedside chair, does not seem to be in distress, on 3 L nasal cannula. Chest x- ray showed no evidence of pulmonary edema no evidence of pneumonia he does have a small tiny apical left pneumothorax. WBC count is 17.7 hemoglobin 9.4. Basic metabolic profile is normal however his BUN is 34 creatinine is 1.52, apparently the patient does have sustained some acute kidney injury most likely related to hypotension/acute tubular necrosis. Patient was reevaluated today on 09/05/2023, remains in the ICU, still requiring multiple drips, he is on dopamine at 2.5 mcg/kg/min norepinephrine at 0.03 mcg/kg/min vasopressin 0.03 units/min patient is also on insulin at 1.5 units/h. Cardiac index remains low at 1.9 cardiac output is relatively low at 3.4. Pulmonary artery pressure 44/18, CVP is 12. Patient does not seem to be very much motivated, he is achieving less than 500 cc on incentive spirometry. The last patient is on 2 L nasal cannula, refusing to participate in physical activity, refusing incentive spirometry, chest tubes, remain in place, prognosis remains guarded. Chest x-ray showed mostly bibasilar atelectasis, mild interstitial prominence, I doubt left-sided pneumothorax as documented by radiology Reevaluate today on 09/06/2023, patient is basically about the same. Patient is in the ICU, he is on multiple drips including higher dose of inotrope, milrinone 0.25 he is on norepinephrine at 0.02 mcg/kg/min vasopressin at 0.03 units/min dopamine at 2.5 mcg/kg/min dobutamine at 2.5 mcg/kg/min insulin at 2.5 units an hour, urine output is low, patient received albumin cardiac index is 2.9 today cardiac output is 5.9. His renal functioning is getting a bit worse, patient apparently the patient is developing what seems to be a cardiorenal syndrome. Chest x-ray is showing atelectasis and bibasilar pleural effusions. Patient is not motivated, does not seem to be interested in getting motivated. And been doing poorly with incentive spirometry Reevaluate today on 09/06, patient is basically about the same, he is now postoperative day #5, sitting at the bedside chair, patient is not motivated what bit remains on multiple inotropes and pressors, patient is receiving dopamine at 2.5 mcg/kg/min dobutamine at 5 mcg/kg/min norepinephrine at 0.06 mcg/kg/min vasopressin at 0.03 units/min and he is also on insulin at 3.5 units/h today he is off milrinone. Cardiac output is 3.8 cardiac index is 2.1 PA pressure 43/15 CVP is 13. Chest x-ray showed mostly atelectasis at the bases. No clear-cut evidence of pulmonary edema. Patient is maintained on 2 L nasal cannula, again the patient is doing extremely poorly with incentive spirometry and does not seem to be motivated at all. Renal functioning seems to be getting worse, his BUN is 63 creatinine 3.54, at this rate I am quite concerned with the patient may end up requiring hemodialysis. This is being addressed by nephrology on the case. Liver enzymes are improving Today on 09/08/2023, patient is now postoperative day #6. Patient is still requiring dobutamine at 0.5 mcg/kg/min, still requiring vasopressin at 0.02 units/min, his norepinephrine is presently on hold, and milrinone was disconti nued. Still on insulin at 3 units/h. Surprisingly the patient is not developing congestive heart failure, but he is developing worsening renal failure, and he may end up requiring renal replacement therapy. His PA pressure 40/18, his cardiac output is 3.9 cardiac index is 2.2 chest x-ray is showing bibasilar atelectasis and small left pleural effusion with a small right pleural effusion Steinauer-Isabell remains in place WBC count is 6 hemoglobin 8.7 basic metabolic profile is normal except for bicarb of 15 and again worsening renal profile BUN is up to 71 creatinine 4.40 Progress note dated September 09, 2023. This is a 63-year-old male, who was seen today in room 266. The patient is status post three-vessel bypass grafting. He went to the operating room on September 01. He is currently on room air. He is receiving insulin at 2 units an hour. In addition, the patient is getting lactated Ringer's at 30 cc an hour, and dobutamine at 2.5 mcg/kg/min. The patient will have hemodialysis for the f irst time today. Current labs include a white count 6.8, hemoglobin 8.1, hematocrit 24.9, and a platelet count of 105,000. Sodium 135, potassium 4.6, chlorides 107, CO2 12, anion gap 16, BUN 79, creatinine 5.27. Glucose is 141. Calcium 7.6. AST is 300. ALT is 155. Albumin is 2.8. Chest x-ray shows cardiomegaly, with bilateral pleural effusions. Progress note dated September 10, 2023. This is a 63-year-old male who is seen in room 266. Currently, the patient is on room air. The patient is getting insulin drip at 3 units an hour, and continues on dobutamine for cardiovascular support at 5 mcg/kg/min. The patient is still not very motivated, to improve his overall clinical situation. He does poorly on his incentive spirometer. Current laboratory data includes a white count 8.7, hemoglobin 10 hematocrit 30.4, platelet count 119,000. Sodium 135, potassium 4.5, chlorides 104, CO2 14, anion gap 17, BUN 63, and creatinine 4.33. The most recent glucose was 127. AST is 200, ALT 141. Albumin 2.8. Calcium 7.6. The patient's chest x-ray shows some postoperative changes, but has been relatively stable. Progress note dated September 11, 2023. The patient is seen today in room 266. He is currently undergoing hemodialysis. The goal of hemodialysis today is removal of 1 L of fluid. Patient is on room air. The patient is getting saline at 20 cc an hour. The patient continues on dobutamine, for cardiovascular support at 2.5 mcg/kg/min. Current labs include a white count 11.9, hemoglobin 9.5, hematocrit 29.6, and a platelet count of 128,000. Sodium 132, potassium 4.3, chlorides 101, CO2 12, anion gap 19, BUN 53, creatinine 3.70. AST is 102. ALT is 100. Albumin is 2.8. Today's chest x-ray is very stable, and comparable to the x-ray done yesterday. Progress note dated September 12, 2023. The patient is again seen in room 266. Currently, the patient is doing about the same. The patient is on room air. He is getting saline at 20 cc an hour. He will have a permanent hemodialysis catheter placed today. Labs today include a white count 18, hemoglobin 9.8, hematocrit 30.3, and a platelet count of 142,000. Sodium 131, potassium 3.8, chlorides 99, CO2 20, BUN 46, creatinine 2.99. Glucose of 66. Albumin 2.8. The rest of the labs are reviewed. Chest x-ray shows postoperative changes, and persistent right pleural effusion with basilar atelectasis. Objective - Vital Signs Vital signs: Vital Signs Temp 98 F 09/12/23 00:00 Pulse 69 09/12/23 07:00 Resp 17 09/12/23 07:00 BP 108/66 09/12/23 06:00 Pulse Ox 94 L 09/12/23 07:00 FiO2 40 09/02/23 20:33 Intake & Output 09/11/23 09/12/2324 18:59 06:59 18:59 Intake Total 809 220 20 Output Total 2020 0 0 Balance -1211 220 20 Weight 94 kg Intake: IV 409 220 20 Invasive Line 10 10 Lactated Ringers 1,000 ml 260 220 20 @ 20 mls/hr IV .Q24H [facility] Rx#:[id number] Sodium Ferric Gluconat- 100 Sucrose 125 mg In Sodium Chloride 0.9% 100 ml @ 100 mls/hr IVPB DAILY [facility] Rx#:[id number] pressure bags 39 Hemodialysis 400 Output: Urine 20 0 0 Hemodialysis 2000 Other: Voiding Method Indwelling Catheter Indwelling Catheter # Bowel Movements 1 1 ABP, PAP, CO, CI - Last Documented Arterial Blood Pressure 83/58 Pulmonary Artery Pressure 45/17 Cardiac Output 3.5 Cardiac Index 2 - Exam No acute distress, oriented 3. Currently on room air. HEENT examination is grossly unremarkable. Mucous membranes are moist. No oral lesions. Neck supple. Full range of motion. No adenopathy thyromegaly or neck vein distention. Cardiovascular examination reveals regular rhythm rate. S1-S2 normal. No S3 or S4. No discernible murmur noted. Heart sounds are distant. Heart rate 69 bpm. Lungs reveal scattered rhonchi. No wheezes or crackles. Breath sounds equal bilaterally. Saturation is 94 % on room air. Abdomen soft, but obese, with bowel sounds. No masses or tenderness. Extremities are intact. No cyanosis clubbing or edema. Skin is without rash or lesion. Neurologic examination is brief but nonfocal. - Labs CBC & Chem 7: 09/12/23 04:56 09/12/23 04:48 Labs: Abnormal Lab Results - Last 24 Hours (Table) 09/11/23 09/11/23 09/12/23 Range/Units 12:15 20:11 04:48 WBC (3.8-10.6) k/uL RBC (4.30-5.90) m/uL Hgb (13.0-17.5) gm/dL Hct (39.0-53.0) % RDW (11.5-15.5) % Plt Count (150-450) k/uL Sodium 131 L (137-145) mmol/L Carbon Dioxide 20 L (22-30) mmol/L BUN 46 H (9-20) mg/dL Creatinine 2.99 H (0.66-1.25) mg/dL Glucose 66 L (74-99) mg/dL POC Glucose (mg/dL) 137 H (70-110) mg/dL Calcium 7.8 L (8.4-10.2) mg/dL Total Bilirubin 1.9 H (0.2-1.3) mg/dL AST 86 H (17-59) U/L ALT 83 H (4-49) U/L Alkaline Phosphatase 187 H (38-126) U/L Creatine Kinase 616 H (55-170) U/L Total Protein 5.5 L (6.3-8.2) g/dL Albumin 2.8 L (3.5-5.0) g/dL 09/12/23 Range/Units 04:56 WBC 18.0 H (3.8-10.6) k/uL RBC 3.14 L (4.30-5.90) m/uL Hgb 9.8 L (13.0-17.5) gm/dL Hct 30.3 L (39.0-53.0) % RDW 16.3 H (11.5-15.5) % Plt Count 142 L (150-450) k/uL Sodium (137-145) mmol/L Carbon Dioxide (22-30) mmol/L BUN (9-20) mg/dL Creatinine (0.66-1.25) mg/dL Glucose (74-99) mg/dL POC Glucose (mg/dL) (70-110) mg/dL Calcium (8.4-10.2) mg/dL Total Bilirubin (0.2-1.3) mg/dL AST (17-59) U/L ALT (4-49) U/L Alkaline Phosphatase (38-126) U/L Creatine Kinase (55-170) U/L Total Protein (6.3-8.2) g/dL Albumin (3.5-5.0) g/dL Assessment and Plan Assessment: Postop day #9, S/P three-vessel bypass grafting. Routine postoperative ventilator management. Chronic systolic CHF, with an ejection fraction of 30 to 35%. Cardiogenic shock and severe LV dysfunction. Peripheral vascular disease. Type 2 diabetes mellitus. Essential hypertension. Hyperlipidemia. History of developmental delay. Bipolar disorder. Chronic anxiety. Prior history of tobacco use. Left apical pneumothorax. Acute kidney injury/ATN, currently requiring hemodialysis. Severe cardiomyopathy. Severe metabolic acidosis. Plan: Plan dated September 09, 2023. The patient is seen today in room 266. He is currently on room air. He is on a n insulin drip at 2 units an hour. In addition, for cardiovascular support, he is on dobutamine at 2.5 mcg/kg/min. He is getting lactated Ringer's at 30 cc an hour. Unfortunately, his kidneys have failed, and he will have hemodialysis for the first time today. We will continue to follow, make recommendations along the way. Labs, x-rays, medications are all reviewed. The patient's overall pro gnosis remains guarded. Plan dated September 10, 2023. The patient is seen today in room 266. The patient continues on an insulin drip at 3 units an hour, and also is on dobutamine, for cardiovascular support at 5 mcg/kg/min. The patient's overall clinical situation remains about the same. He is not particularly motivated at this point. The patient does poorly on his incentive spirometer. Labs, x-rays, and medications are reviewed. We will continue to follow the patient, make recommendations along the way. Prognosis is certainly guarded. Plan dated September 11, 2023. The patient is seen today in room 266. The patient continues on dobutamine at 2.5 mcg/kg/min. The patient is on room air. He is currently undergoing hemodialysis, with a goal today of removing 1 L of fluid. The patient is also getting saline at 20 cc an hour. Labs, x-rays, and medications are reviewed. The patient is not particularly motivated to get better. He does very poorly on his incentive spirometer. We will continue to follow and make recommendations along the way. Prognosis is currently guarded. Plan dated September 12, 2023. The patient is seen again in room 266. He continues on room air. He is not r eceiving any fluids other than saline at 20 cc an hour. A permanent hemodialysis catheter will be placed later today. Labs are reviewed. X-rays are reviewed. All medications are reviewed. The patient continues to do poorly with his incentive spirometer. We will continue to follow make recommendations. Prognosis is guarded. Time with Patient: Less than 30
[2023-09-12 11:22] LABS: Glucose,Whole Blood 67 mg/dL (70-110)
[2023-09-12] MEDS: DEXTROSE 50% SYRINGE 50 ML IVP PRN (11:34)
--- NOTE | 2023-09-12 11:40 | P.PN ---
Subjective Progress Note Date: 09/08/23 63-year-old gentleman with past medical history significant for coronary artery disease, chronic congestive heart failure with ejection fraction of 30%, hypertension hyperlipidemia diabetes mellitus obesity bipolar disorder cardiomyopathy developmental delay history of nicotine dependence who has been admitted with shortness of breath and lower extremity edema. Patient underwent cardiac catheterization right heart catheterization and intra-aortic balloon pump. * Patient has comorbidities including diabetes mellitus type 2, peripheral arterial disease, bipolar disorder, history of anxiety. * Patient to undergo myocardial revascularization 09/02/2023. * 09/03/23 : Patient admitted to medical ICU. Patient was successfully extubated postprocedure. S/p intra-aortic balloon pump which remains in place through right femoral access. Patient remains on norepinephrine drip, Primacor drip, vasopressin. Bilateral chest tubes remained in place. Followed up by medical ICU and cardiac surgery. Follow-up blood work obtained including WBC 15.2 hemoglobin 9.2 platelet count of 98, serum chemistry sodium 141 potassium 4.7 carbon dioxide 24 BUN 26 creatinine 1.1 blood glucose 118-1 33 * 09/04/23: Patient seen and evaluated in medical ICU room 266, patient continues to remain on Levophed, vasopressin and pressor support. Blood work reviewed WBC 17.7 hemoglobin 9.4 platelet 117. Serum chemistry showed sodium 137 potassium 4.9 carbon dioxide 18 BUN 34 creatinine 1.52 blood glucose 123. Overnight patient was refusing to participate with care, patient counseled by cardiac surgery team as well. Brother at bedside, patient does follow co mmands, care plan discussed with nursing staff * 09/05/23: Patient seen and evaluated bedside, vitals reviewed blood pressure running in the 90s overnight. Patient remains on 2 L of oxygen. Blood work reviewed CBC shows WBC 14.3 hemoglobin 9.3 platelet 105 serum chemistry sodium 137 potassium 5.2 carbon dioxide 16 BUN 44 creatinine 1.99 total bilirubin 1.3 AST 464 ALT 128 will need to be monitored, p.atient remains lethargic however easily arousable 09/06/2023 -- Patient is seen and evaluated in ICU at bedside Vital signs reviewed and temperature of 97.9, pulse 90, respiration 14 and blood pressure of 110/40 Lab review shows WBC 14.2, hemoglobin of 8.7 and platelet count of 109, sodium 136, potassium 4.8, BUNs/creatinine of 54/2.91; concern about worsening renal fu nction likely related to cardiorenal syndrome; dopamine has been discontinued Chest x-ray reveals atelectasis and bibasilar pleural effusion --Patient remains on pressors and inotropic agents; cardiac index and cardiac output is being monitored closely -Patient remains on Plavix, aspirin, statins and beta-blockers -- Recommended to increase activity 09/07/2023 ---patient is basically about the same, he is now postoperative day #5, sitting at the bedside chair, patient is not motivated what bit remains on multiple inotropes and pressors, patient is receiving dopamine at 2.5 mcg/kg/min dobutamine at 5 mcg/kg/min norepinephrine at 0.06 mcg/kg/min vasopressin at 0.03 units/min and he is also on insulin at 3.5 units/h today he is off milrinone. Chest x-ray showed mostly atelectasis at the bases. No clear-cut evidence of pulmonary edema. Patient is maintained on 2 L nasal cannula, again the patient is doing extremely poorly with incentive spirometry and does not seem to be motivated at all. Renal functioning seems to be getting worse, his BUN is 63 creatinine 3.54, at this rate I am quite concerned with the patient may end up requiring hemodialysis. This is being addressed by nephrology on the case. Liver enzymes are improving Continue pressors and inotropes continue to monitor cardiac index and cardiac output Continue dopamine, continue dobutamine, patient is off milrinone today. However he is still requiring norepinephrine and vasopressin Continue Plavix beta-blockers aspirin and statin Titrate pressors and inotropes as tolerated 09/08/2023 --patient is seen and evaluated with family at bedside; now postoperative day # 6. -- Patient is still requiring dobutamine at 0.5 mcg/kg/min, still requiring vasopressin at 0.02 units/min, his norepinephrine is presently on hold, and milrinone was discontinued. Still on insulin at 3 units/h. -- chest x-ray is showing bibasilar atelectasis and small left pleural effusion with a small right pleural effusion -- WBC count is 6 hemoglobin 8.7 basic metabolic profile is normal except for bicarb of 15 and again worsening renal profile BUN is up to 71 creatinine 4.40 -Renal function continues to worsen; nephrology on board and planning to continue with IV Lasix and oral sodium bicarbonate; plan for possible hemodialysis in a.m. if urine output does not improve 09/09/2023 Patient is awake alert but looks very tired and lethargic lying in chair. No significant chest pain. Patient has average appetite No significant dyspnea but looks very weak Patient required pressors Patient planned and considered for hemodialysis given his worsening renal function today 5.2 compared with 1.5 upon admission He has severe cardiomyopathy with ejection fraction 20 to 25% and currently on aspirin and Plavix and amiodarone drip. Also he required pressors as above, cardiology following closely. 09/10/2023 Patient still lethargic still sitting in chair No much difference clinically from yesterday A plan to undergo hemodialysis today for first-line, hemodialysis catheter in place. Patient is oliguric. He is currently getting dobutamine and insulin drip 3 units/h He is also on aspirin and Plavix and metoprolol 09/11/2023 Patient remains very lethargic No new complaint He remains on dobutamine drip at 2.5 He is getting the third round of hemodialysis today His insulin drip switched to sliding scale and Levemir Continue with dual antiplatelet therapy Labs showing stable hemoglobin 9.5. Platelet 1 28,000 09/12/2023 Patient looks more awake and alert today, he still generally weak sitting up in chair. No chest pain no dyspnea, no other specific complaint he Is getting hemodialysis. Creatinine down to 2.9. Hemoglobin stable, platelet count stable. He was started on Levemir 14 and twice daily yesterday, his sugar was on the low side this morning therefore we are going to lower the dose to Levemir 15 units at bedtime with close monitoring. Started also on sodium bicarb Objective - Vital Signs Vital signs: Vital Signs Temp 97.9 F 09/12/23 08:00 Pulse 77 09/12/23 10:00 Resp 17 09/12/23 10:00 BP 91/61 09/12/23 10:00 Pulse Ox 95 09/12/23 10:00 FiO2 40 09/02/23 20:33 Intake & Output 09/11/23 09/12/23 09/12/23 18:59 06:59 18:59 Intake Total 809 220 80 Output Total 2020 0 0 Balance -1211 220 80 Weight 94 kg Intake: IV 409 220 80 Invasive Line 10 10 Lactated Ringers 1,000 ml 260 220 20 @ 20 mls/hr IV .Q24H [facility] Rx#:[id number] Sodium Chloride 0.9% 1, 60 000 ml @ 20 mls/hr IV . Q24H [facility] Rx#:[id number] Sodium Ferric Gluconat- 100 Sucrose 125 mg In Sodium Chloride 0.9% 100 ml @ 100 mls/hr IVPB DAILY [facility] Rx#:[id number] pressure bags 39 Hemodialysis 400 Output: Urine 20 0 0 Hemodialysis 2000 Other: Voiding Method Indwelling Catheter Indwelling Catheter # Bowel Movements 1 1 ABP, PAP, CO, CI - Last Documented Arterial Blood Pressure 83/58 Pulmonary Artery Pressure 45/17 Cardiac Output 3.5 Cardiac Index 2 - Exam -GENERAL: The patient is alert and oriented x3, not in any acute distress. Well developed, well nourished. Lethargic and weak HEENT: Pupils are round and equally reacting to light. EOMI. No scleral icterus. No conjunctival pallor. Normocephalic, atraumatic. No pharyngeal erythema. No thyromegaly. CARDIOVASCULAR: S1 and S2 present. No murmurs, rubs, or gallops. PULMONARY: Chest is clear to auscultation, no wheezing , no crackles. ABDOMEN: Soft, nontender, nondistended, normoactive bowel sounds. No palpable organomegaly. MUSCULOSKELETAL: No joint swelling or deformity. -EXTREMITIES: No cyanosis, clubbing, bilateral pitting leg edema.-[facility] We recommend close monitoring of this metabolic panel (BMP ) while patient is on Lasix, also monitoring of complete cell count (CBC) NEUROLOGICAL: Gross neurological examination did not reveal any focal deficits. SKIN: No rashes. no petechiae. - Labs CBC & Chem 7: 09/12/23 04:56 09/12/23 04:48 Labs: Abnormal Lab Results - Last 24 Hours (Table) 09/11/23 09/11/23 09/12/23 Range/Units 12:15 20:11 04:48 WBC (3.8-10.6) k/uL RBC (4.30-5.90) m/uL Hgb (13.0-17.5) gm/dL Hct (39.0-53.0) % RDW (11.5-15.5) % Plt Count (150-450) k/uL Sodium 131 L (137-145) mmol/L Carbon Dioxide 20 L (22-30) mmol/L BUN 46 H (9-20) mg/dL Creatinine 2.99 H (0.66-1.25) mg/dL Glucose 66 L (74-99) mg/dL POC Glucose (mg/dL) 137 H (70-110) mg/dL Calcium 7.8 L (8.4-10.2) mg/dL Total Bilirubin 1.9 H (0.2-1.3) mg/dL AST 86 H (17-59) U/L ALT 83 H (4-49) U/L Alkaline Phosphatase 187 H (38-126) U/L Creatine Kinase 616 H (55-170) U/L Total Protein 5.5 L (6.3-8.2) g/dL Albumin 2.8 L (3.5-5.0) g/dL 09/12/23 09/12/23 Range/Units 04:56 11:21 WBC 18.0 H (3.8-10.6) k/uL RBC 3.14 L (4.30-5.90) m/uL Hgb 9.8 L (13.0-17.5) gm/dL Hct 30.3 L (39.0-53.0) % RDW 16.3 H (11.5-15.5) % Plt Count 142 L (150-450) k/uL Sodium (137-145) mmol/L Carbon Dioxide (22-30) mmol/L BUN (9-20) mg/dL Creatinine (0.66-1.25) mg/dL Glucose (74-99) mg/dL POC Glucose (mg/dL) 67 L (70-110) mg/dL Calcium (8.4-10.2) mg/dL Total Bilirubin (0.2-1.3) mg/dL AST (17-59) U/L ALT (4-49) U/L Alkaline Phosphatase (38-126) U/L Creatine Kinase (55-170) U/L Total Protein (6.3-8.2) g/dL Albumin (3.5-5.0) g/dL Assessment and Plan Assessment: Acute on chronic systolic ejection of congestive heart failure with ejection fraction worsened 35% down to 25% Cardiogenic shock Acute kidney injury requiring hemodialysis Peripheral vascular disease Hypertension Hyperlipidemia Diabetes mellitus Bipolar disorder Plan: Continue with pressors per forest management professor will follow the clinical case closely Pulmonary/critical care team Continue with insulin drip Continue with amiodarone and aspirin and Plavix On metoprolol Several consultants on the case DVT prophylaxis with subcutaneous heparin GI prophylaxis with Protonix Prognosis is guarded
--- NOTE | 2023-09-12 11:43 | P.PN ---
Subjective Progress Note Date: 09/12/23 Principal diagnosis: Triple-vessel coronary artery disease with left main disease. Past medical history significant for hypertension, hyperlipidemia, diabetes mellitus, chronic systolic heart failure with reduced ejection fraction/ischemic cardiomyopathy, bipolar disorder, obesity, peripheral vascular disease, developmental delay, previous tobacco dependence, noncompliance POD #11 right heart catheterization, ultrasound guided access, placement of intra-aortic balloon pump from right femoral access performed by Dr. Monreal. POD #10 on pump coronary artery bypass grafting x 3, left internal thoracic artery (in-situ) sequential to diagonal and left anterior descending coronary artery, right greater saphenous vein from aorta to obtuse marginal artery #1, left atrial appendage ligation with #35mm AtriClip, endoscopic bilateral greater saphenous vein harvest, graft flow measurements using the [employer] flow meter system, trans-esophageal echo Postoperative acute blood loss anemia and thrombocytopenia, expected given hemodilution and cardiopulmonary bypass LEONARDO, status post placement of temp dialysis cath Elevated transaminases, likely due to hypoperfusion, trending down Cardiogenic shock The patient was seen and examined in follow-up today September 12, 2023 at his bedside in the intensive care unit. Currently sitting up to the bedside chair, is awake, and disoriented to time. The patient knows he is at the hospital and is oriented to person. He denies any complaints of pain or shortness of breath at this time. Oxygen saturations are 94% on room air and he is achieving 500 mL on his incentive spirometry with encouragement. Bedside telemetry is showing normal sinus rhythm with occasional PACs heart rate 86 bpm. He remains on midodrine 5 mg p.o. AC 3 times daily for blood pressure support. He is scheduled for hemodialysis today and a permacath placement. He remains afebrile at this time and his WBC count today was 18.0. He is complaining of some generalized weakness. Hobson catheter remains in place with no urine output in the last 8 hours. Kidney function continues to improve, BUN 46 today and creatinine 2.99. Chest x-ray and laboratory results were reviewed. Objective - Vital Signs Vital signs: Vital Signs Temp 98 F 09/12/23 00:00 Pulse 69 09/12/23 07:00 Resp 17 09/12/23 07:00 BP 108/66 09/12/23 06:00 Pulse Ox 94 L 04/04/24 07:00 FiO2 40 09/02/23 20:33 Intake & Output 09/11/23 09/12/23 09/12/23 18:59 06:59 18:59 Intake Total 809 220 20 Output Total 2019 0 0 Balance -1211 220 20 Weight 94 kg Intake: IV 409 220 20 Invasive Line 10 10 Lactated Ringers 1,000 ml 260 220 20 @ 20 mls/hr IV .Q24H [facility] Rx#:[id number] Sodium Ferric Gluconat- 100 Sucrose 125 mg In Sodium Chloride 0.9% 100 ml @ 100 mls/hr IVPB DAILY [facility] Rx#:[id number] pressure bags 39 Hemodialysis 400 Output: Urine 20 0 0 Hemodialysis 1999 Other: Voiding Method Indwelling Catheter Indwelling Catheter # Bowel Movements 1 1 ABP, PAP, CO, CI - Last Documented Arterial Blood Pressure 83/58 Pulmonary Artery Pressure 45/17 Cardiac Output 3.5 Cardiac Index 2 - Exam CONSTITUTIONAL: Sitting up to the bedside chair in the intensive care unit, appears comfortable, cooperative, no apparent acute distress. HEENT: Neck is supple, no JVD, no lymphadenopathy. RESPIRATORY: Lungs sounds essentially clear throughout, diminished to his bilateral bases. Respirations are symmetrical and nonlabored. Currently on room air with oxygen saturations 94%. Able to achieve 500 mL on his incentive spirometry with encouragement and instruction. Weak cough. CARDIOVASCULAR: Regular rhythm and rate. S1 and S2 present, negative for S3, gallop or murmur. Sternum is stable. Palpable peripheral pulses bilaterally, +1 edema generalized. No calf pain or tenderness noted. Heart hugger in place with patient demonstrating appropriate use with much encouragement. Knee-high VARUN hose and sequential compression devices in place to his bilateral lower extremities. GASTROINTESTINAL: Abdomen soft, nontender, nondistended. Active bowel sounds present 4 quadrants. Tolerating minimal diet with encouragement and assistance. No guarding or rigidity. Bowel movement on September 10, 2023 GENITOURINARY: Hobson present draining clear, yellow urine. Urine output 0 mL in the last 8 hours. 20 mL of output in the last 24 hours. Hemodialysis yesterday with 900 mL of ultrafiltration completed. INTEGUMENTARY: Skin is warm and dry with no evidence of clubbing or cyanosis. Midline sternal incision clean dry and well approximated, covered with dry intact dressing. Bilateral lower extremity EVH sites well approximated without redness or drainage. NEUROLOGIC: Cranial nerves II through XII intact. MUSKULOSKELETAL: Able to move all extremities, strength equal bilaterally, generalized weakness present although difficult to assess as patient isn't cooperating with care. PSYCHIATRIC: Alert and oriented to person place and disoriented to time, flat affect, and he is impulsive. INVASIVE LINES AND TUBES: Atrial and ventricular epicardial pacemaker wires present, and grounded. - Allied health notes Allied health notes reviewed: nursing - Labs CBC & Chem 7: 09/12/23 04:56 09/12/23 04:48 Labs: Abnormal Lab Results - Last 24 Hours (Table) 09/11/23 09/11/23 09/12/23 Range/Units 12:15 20:11 04:48 WBC (3.8-10.6) k/uL RBC (4.30-5.90) m/uL Hgb (13.0-17.5) gm/dL Hct (39.0-53.0) % RDW (11.5-15.5) % Plt Count (150-450) k/uL Sodium 131 L (137-145) mmol/L Carbon Dioxide 20 L (22-30) mmol/L BUN 46 H (9-20) mg/dL Creatinine 2.99 H (0.66-1.25) mg/dL Glucose 66 L (74-99) mg/dL POC Glucose (mg/dL) 137 H (70-110) mg/dL Calcium 7.8 L (8.4-10.2) mg/dL Total Bilirubin 1.9 H (0.2-1.3) mg/dL AST 86 H (17-59) U/L ALT 83 H (4-49) U/L Alkaline Phosphatase 187 H (38-126) U/L Creatine Kinase 616 H (55-170) U/L Total Protein 5.5 L (6.3-8.2) g/dL Albumin 2.8 L (3.5-5.0) g/dL 09/12/23 Range/Units 04:56 WBC 18.0 H (3.8-10.6) k/uL RBC 3.14 L (4.30-5.90) m/uL Hgb 9.8 L (13.0-17.5) gm/dL Hct 30.3 L (39.0-53.0) % RDW 16.3 H (11.5-15.5) % Plt Count 142 L (150-450) k/uL Sodium (137-145) mmol/L Carbon Dioxide (22-30) mmol/L BUN (9-20) mg/dL Creatinine (0.66-1.25) mg/dL Glucose (74-99) mg/dL POC Glucose (mg/dL) (70-110) mg/dL Calcium (8.4-10.2) mg/dL Total Bilirubin (0.2-1.3) mg/dL AST (17-59) U/L ALT (4-49) U/L Alkaline Phosphatase (38-126) U/L Creatine Kinase (55-170) U/L Total Protein (6.3-8.2) g/dL Albumin (3.5-5.0) g/dL - Imaging and Cardiology Chest x-ray: report reviewed, image reviewed Assessment and Plan Assessment: Multivessel coronary artery disease with left main disease, status post three- vessel on pump coronary artery bypass grafting surgery Chronic systolic congestive heart failure with an ejection fraction of 30 to 35%, status post intra-aortic balloon pump placement Cardiomyopathy Hypertension, currently on midodrine for blood pressure support Hyperlipidemia Diabetes mellitus type 2, with hemoglobin A1c 10.9 in April 2023, preoperative hemoglobin A1c 7.4% on September 01, 2023 Peripheral arterial disease, recent ABIs to right 0.95 and left 0.97 Bilateral pleural effusions on July 16, 2023 CT scan of the chest Obesity with a BMI of 32.7 kg/m Bipolar disorder Developmentally delayed Anxiety Noncompliance with medical therapy Remote history of nicotine dependence quit smoking over 20 years ago, with an FEV1 of 55% of predicted value and a base volume of 1.43 Postoperative acute blood loss anemia and thrombocytopenia, expected Incidental finding of tiny left pneumothorax, not a complication, resolved Acute kidney injury, status post dialysis cath placement Elevated transaminase and cardiogenic shock, likely from hypoperfusion Plan: Continue aspirin, Plavix and beta-feliberto with hold parameters. Statin discontinued due to elevated transaminases, will restart when able Continue midodrine 5 mg p.o. 3 times daily per cardiology management. Encourage use of incentive spirometry 10 times every hour while awake. Bronchodilators per pulmonology. Increase activity, ambulate as tolerated. PT/OT/cardiac rehab following, patient resistant to participate. Will monitor daily labs and chest x-rays. Dialysis per nephrology, dialysis daily, scheduled for permacath today September 12, 2023. Avoid nephrotoxic agents. Pain control per current medication regimen. Avoid to Toradol. No narcotics. Continue Hobson catheter for another 24 hours, continue to record strict accurate intake and output. Insulin management per internal medicine. Preoperative hemoglobin A1c 7.4%. GI/DVT prophylaxis. Daily weights. Encourage oral intake, supplements ordered. Patient needs continued encouragement to participate in his care. Prognosis remains very guarded. Consult case management for discharge planning. Will need extensive rehab. More recommendations to follow based on patient's clinical course. Time with Patient: Greater than 30
[2023-09-12 11:54] LABS: Glucose,Whole Blood 73 mg/dL (70-110)
--- NOTE | 2023-09-12 12:06 | P.PN ---
Subjective patient is seen for follow-up for acute kidney injury, oliguric hemodynamic ATN. Status post coronary artery bypass surgery on 09/02/2023 started on hemodialysis on 09/09/2023 for severe progressive ATN. Patient remains oliguric. Patient is seen on hemodialysis today. He is much more awake and has had an increase in oral intake. urine output 0 Objective - Vital Signs Vital signs: Vital Signs Temp 97.9 F 09/12/23 08:00 Pulse 77 09/12/23 10:00 Resp 17 09/12/23 10:00 BP 91/61 09/12/23 10:00 Pulse Ox 95 09/12/23 10:00 FiO2 40 09/02/23 20:33 Intake & Output 09/11/23 09/12/23 09/12/23 18:59 06:59 18:59 Intake Total 809 220 80 Output Total 2020 0 0 Balance -1211 220 80 Weight 94 kg Intake: IV 409 220 80 Invasive Line 10 10 Lactated Ringers 1,000 ml 260 220 20 @ 20 mls/hr IV .Q24H [facility] Rx#:[id number] Sodium Chloride 0.9% 1, 60 000 ml @ 20 mls/hr IV . Q24H [facility] Rx#:[id number] Sodium Ferric Gluconat- 100 Sucrose 125 mg In Sodium Chloride 0.9% 100 ml @ 100 mls/hr IVPB DAILY [facility] Rx#:[id number] pressure bags 39 Hemodialysis 400 Output: Urine 20 0 0 Hemodialysis 2000 Other: Voiding Method Indwelling Catheter Indwelling Catheter # Bowel Movements 1 1 ABP, PAP, CO, CI - Last Documented Arterial Blood Pressure 83/58 Pulmonary Artery Pressure 45/17 Cardiac Output 3.5 Cardiac Index 2 - Exam patient is awake, comfortable. No acute distress Examination of the heart S1 and S2 Examination of the lungs decreased breath sounds at the bases Abdomen is soft Examination of lower extremities shows 1+ edema with significant scrotal edema - Labs CBC & Chem 7: 09/12/23 04:56 09/12/23 04:48 Labs: Abnormal Lab Results - Last 24 Hours (Table) 09/11/23 09/11/23 09/12/23 Range/Units 12:15 20:11 04:48 WBC (3.8-10.6) k/uL RBC (4.30-5.90) m/uL Hgb (13.0-17.5) gm/dL Hct (39.0-53.0) % RDW (11.5-15.5) % Plt Count (150-450) k/uL Sodium 131 L (137-145) mmol/L Carbon Dioxide 20 L (22-30) mmol/L BUN 46 H (9-20) mg/dL Creatinine 2.99 H (0.66-1.25) mg/dL Glucose 66 L (74-99) mg/dL POC Glucose (mg/dL) 137 H (70-110) mg/dL Calcium 7.8 L (8.4-10.2) mg/dL Total Bilirubin 1.9 H (0.2-1.3) mg/dL AST 86 H (17-59) U/L ALT 83 H (4-49) U/L Alkaline Phosphatase 187 H (38-126) U/L Creatine Kinase 616 H (55-170) U/L Total Protein 5.5 L (6.3-8.2) g/dL Albumin 2.8 L (3.5-5.0) g/dL 09/12/23 09/12/23 Range/Units 04:56 11:21 WBC 18.0 H (3.8-10.6) k/uL RBC 3.14 L (4.30-5.90) m/uL Hgb 9.8 L (13.0-17.5) gm/dL Hct 30.3 L (39.0-53.0) % RDW 16.3 H (11.5-15.5) % Plt Count 142 L (150-450) k/uL Sodium (137-145) mmol/L Carbon Dioxide (22-30) mmol/L BUN (9-20) mg/dL Creatinine (0.66-1.25) mg/dL Glucose (74-99) mg/dL POC Glucose (mg/dL) 67 L (70-110) mg/dL Calcium (8.4-10.2) mg/dL Total Bilirubin (0.2-1.3) mg/dL AST (17-59) U/L ALT (4-49) U/L Alkaline Phosphatase (38-126) U/L Creatine Kinase (55-170) U/L Total Protein (6.3-8.2) g/dL Albumin (3.5-5.0) g/dL Assessment and Plan Assessment: 1. Acute kidney injury secondary to ATN secondary to hypotension/cardiogenic shock. Baseline creatinine near 1. Oliguric, with no response to high-dose loop diuretics. UA fairly benign. started renal replacement therapy on 09/09/2023. 2. Coronary artery disease status post CABG x 3 September 02, 2023. 3. Shock maintained on Levophed, vasopressin, dopamine and dobutamine. 4. Cardiomyopathy with reduced ejection fraction. EF 25-20% 5. Metabolic acidosis secondary to acute kidney injury. patient remains is significantly acidotic even after 2 treatments of hemodialysis. 6. Cardiomyopathy with EF 20-25% Plan: continue with daily dialysis decrease sodium bicarb to once a day after hemodialysis today repeat labs in a.m.
[2023-09-12 13:22] LABS: Glucose,Whole Blood 81 mg/dL (70-110)
--- NOTE | 2023-09-12 14:41 | PN ---
PROGRESS NOTE SUBJECTIVE: This is a 63-year-old gentleman who is status post bypass surgery, renal failure on hemodialysis. Looks more alert and awake today. Blood pressure has improved on exam. He denies any chest pain. OBJECTIVE: VITAL SIGNS: Heart rate is 77 beats per minute. Blood pressure is 91/60, respiratory rate is 17. CHEST: Reveals diminished air entry at the bases. HEART: Reveals first and second heart sounds. No gallop. ABDOMEN: Soft. EXTREMITIES: Reveal mild edema. Peripheral pulses are felt. Lab show a hemoglobin of 9.8, potassium is 3.8, BUN is 46, creatinine is 2.9. ASSESSMENT: 1. CAD, status post CABG. 2. Acute renal failure, on hemodialysis. 3. Hypotension. PLAN: I will continue the patient on aspirin, Plavix, midodrine, small dose of metoprolol. MMODL / IJN: [id number] /
[2023-09-12 16:50] LABS: Glucose,Whole Blood 75 mg/dL (70-110)
[2023-09-12 21:22] LABS: Glucose,Whole Blood 92 mg/dL (70-110)
[2023-09-12] MEDS: SODIUM BICARBONATE TAB 650 MG TAB PO SCH (22:00)
[2023-09-12] MEDS: INSULIN DETEMIR (LEVEMIR) 100 UNIT/ML SYR SQ SCH (22:36)
[2023-09-13 05:16] LABS: Anisocytosis Slight; HCT 31.1 % (39.0-53.0); Hypochromasia Slight; MCH 31.3 pg (25.0-35.0); MCHC 32.1 g/dL (31.0-37.0); MCV 97.7 fL (80.0-100.0); Macrocytosis Slight; Mean Platelet Volume 9.9; RBC 3.18 m/uL (4.30-5.90); WBC 23.8 k/uL (3.8-10.6)
[2023-09-13 05:22] LABS: Platelet Count 80 k/uL (150-450)
[2023-09-13 05:35] LABS: ALT 64 U/L (4-49); AST 66 U/L (17-59); African American GFR (CKD) 25 (>60 ml/min/1.73 sqM); Albumin 2.9 g/dL (3.5-5.0); Alkaline Phosphatase 198 U/L (38-126); Anion Gap 12 mmol/L; Blood Urea Nitrogen 39 mg/dL (9-20); Calcium 7.8 mg/dL (8.4-10.2); Carbon Dioxide 22 mmol/L (22-30); Chloride 95 mmol/L (98-107); Glucose 116 mg/dL (74-99); Non-African American GFR(CKD) 21 (>60 ml/min/1.73 sqM); Potassium 3.9 mmol/L (3.5-5.1); Sodium 129 mmol/L (137-145); Total Bilirubin 2.3 mg/dL (0.2-1.3); Total Protein 5.4 g/dL (6.3-8.2)
[2023-09-13 06:25] LABS: Band Neutrophils % 4 %; Eosinophils # (M) 0.24 k/uL (0-0.7); Monocytes # (M) 1.19 k/uL (0-1.0); Neutrophils % (M) 82 %; Nucleated Red Blood Cells 0 /100 WBC (0-0); Total Cells Counted 100
[2023-09-13 06:26] LABS: Anisocytosis (M) Present
[2023-09-13 08:31] LABS: Glucose,Whole Blood 126 mg/dL (70-110)
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
--- NOTE | 2023-09-13 10:18 | P.PN ---
Subjective patient is seen for follow-up for acute kidney injury, oliguric hemodynamic ATN. Status post coronary artery bypass surgery on 09/02/2023 Started on hemodialysis on 09/09/2023 for severe progressive hemodynamic ATN. Patient remains oliguric. scheduled for IJ permacath placement today. Patient will be dialyzed today and again in a.m. Objective - Vital Signs Vital signs: Vital Signs Temp 97.9 F 09/13/23 08:00 Pulse 81 09/13/23 09:00 Resp 18 09/13/23 09:00 BP 104/53 09/13/23 09:00 Pulse Ox 94 L 09/13/23 07:00 FiO2 40 09/02/23 20:33 Intake & Output 09/12/23 09/13/23 09/13/23 18:59 06:59 18:59 Intake Total 240 480 40 Output Total 10 5 35 Balance 230 475 5 Intake: IV 240 60 40 Lactated Ringers 1,000 ml 20 @ 20 mls/hr IV .Q24H [facility] Rx#:[id number] Sodium Chloride 0.9% 1, 220 60 40 000 ml @ 20 mls/hr IV . Q24H [facility] Rx#:[id number] Intake, IV Titration 20 Amount Sodium Chloride 0.9% 1, 20 000 ml @ 20 mls/hr IV . Q24H [facility] Rx#:[id number] Oral 400 Output: Urine 10 5 35 Other: Voiding Method Indwelling Catheter Indwelling Catheter # Bowel Movements 1 ABP, PAP, CO, CI - Last Documented Arterial Blood Pressure 83/58 Pulmonary Artery Pressure 45/17 Cardiac Output 3.5 Cardiac Index 2 - Exam patient is awake, comfortable. No acute distress Examination of the heart S1 and S2 Examination of the lungs decreased breath sounds at the bases Abdomen is soft Examination of lower extremities shows 1+ edema with significant scrotal edema - Labs CBC & Chem 7: 09/13/23 04:47 09/13/23 04:52 Labs: Abnormal Lab Results - Last 24 Hours (Table) 09/12/23 09/13/23 09/13/23 Range/Units 11:21 04:47 04:52 WBC 23.8 H (3.8-10.6) k/uL RBC 3.18 L (4.30-5.90) m/uL Hgb 10.0 L (13.0-17.5) gm/dL Hct 31.1 L (39.0-53.0) % RDW 17.0 H (11.5-15.5) % Plt Count 80 L (150-450) k/uL Neutrophils # (Manual) 20.40 H (1.3-7.7) k/uL Monocytes # (Manual) 1.19 H (0-1.0) k/uL Sodium 129 L (137-145) mmol/L Chloride 95 L (98-107) mmol/L BUN 39 H (9-20) mg/dL Creatinine 3.00 H (0.66-1.25) mg/dL Glucose 116 H (74-99) mg/dL POC Glucose (mg/dL) 67 L (70-110) mg/dL Calcium 7.8 L (8.4-10.2) mg/dL Total Bilirubin 2.3 H (0.2-1.3) mg/dL AST 66 H (17-59) U/L ALT 64 H (4-49) U/L Alkaline Phosphatase 198 H (38-126) U/L Total Protein 5.4 L (6.3-8.2) g/dL Albumin 2.9 L (3.5-5.0) g/dL 09/13/23 Range/Units 08:30 WBC (3.8-10.6) k/uL RBC (4.30-5.90) m/uL Hgb (13.0-17.5) gm/dL Hct (39.0-53.0) % RDW (11.5-15.5) % Plt Count (150-450) k/uL Neutrophils # (Manual) (1.3-7.7) k/uL Monocytes # (Manual) (0-1.0) k/uL Sodium (137-145) mmol/L Chloride (98-107) mmol/L BUN (9-20) mg/dL Creatinine (0.66-1.25) mg/dL Glucose (74-99) mg/dL POC Glucose (mg/dL) 126 H (70-110) mg/dL Calcium (8.4-10.2) mg/dL Total Bilirubin (0.2-1.3) mg/dL AST (17-59) U/L ALT (4-49) U/L Alkaline Phosphatase (38-126) U/L Total Protein (6.3-8.2) g/dL Albumin (3.5-5.0) g/dL Assessment and Plan Assessment: 1. Acute kidney injury secondary to ATN secondary to hypotension/cardiogenic shock. Baseline creatinine near 1. Oliguric. UA fairly benign. Started renal replacement therapy on 09/09/2023. 2. Coronary artery disease status post CABG x 3 September 02, 2023. 3. Shock maintained on Levophed, vasopressin, dopamine and dobutamine. 4. Cardiomyopathy with reduced ejection fraction. EF 25-20% 5. Metabolic acidosis secondary to acute kidney injury. improved 6. Cardiomyopathy with EF 20-25% Plan: hemodialysis today and repeat in a.m. Can hold on Saturday. repeat labs in a.m. Encourage increased oral intake
--- NOTE | 2023-09-13 10:45 | P.PN ---
Subjective Progress Note Date: 09/13/23 Principal diagnosis: Coronary artery disease. 63-year-old male patient, was brought into the intensive care unit after having an antibiotic balloon pump inserted this morning and this was done in preparation for coronary artery bypass surgery. The patient is known to have CAD, chronic CHF with impaired ejection fraction of 30 to 35%. The patient has been hospitalized with [facility] and an earlier cardiac catheterization from April 2023 showed a 70% left main, 70% proximal LAD, 30% circumflex and 70% obtuse marginal 1 and 60% mid RCA. The patient has impaired LV function with an EF around 30 to 35% along with mild to moderate MR, and severe pulm hypertension. The patient is scheduled to undergo coronary artery bypass surgery tomorrow. He is currently on room air oxygen. Free of any chest pain. Hemodynamically stable. Augmented blood pressure is around 80. He has some developmental delay and his other comorbid conditions include diabetes rachel litus type 2, hypertension and hyperlipidemia. Blood work shows a white cell count of 9, hemoglobin 11.8, platelet count of 206, normal coagulation profile, BUN of 27 with a creatinine of 1 and sodium levels at 138. LFTs are normal. His CAT scan of the chest that was done on 07/16/2023 showed cardiomegaly with small right and left-sided pleural effusion. This is consistent with CHF. No mediastinal lymphadenopathy. The patient is seen today September 02, 2023 in follow-up in the intensive care unit following surgery. He had undergone an on pump coronary artery bypass grafting x 3 with a left internal thoracic artery sequential to diagonal and the LAD. Right SVG from the aorta to the obtuse marginal #1. Left atrial appendage ligation and clipping. He remains intubated on the mechanical ventilator and assist-control mode at a rate of 14, tidal volume 500, FiO2 40% and a PEEP of 10. He remains on propofol at 20 mcg/kg/min. Lactated Ringer's at 50 MLS per hour. He is requiring vasopressin at 0.04 units/min. Insulin drip at 1 unit/h. Norepinephrine at 0.05 mcg/kg/min. Milrinone at 0.25 mcg/kg/min intra-aortic balloon pump remains in place. Mediastinal and right and left split chest tubes remain in place. Cardiac output is 4.7. Cardiac index 2.6. Received albumin. Receiving cefazolin. Heparin for DVT prophylaxis. White count 11.7. Hemoglobin 11.5. Platelets 84,000. INR 1.4. Sodium 141. Potassium 3.7. Bicarb 22. BUN 22. Creatinine 0.88. Glucose 101. X-ray no overt failure, pneumothorax or sizable consolidation. ABG's are pending. Patient was today on 09/03/2023, patient was extubated last night uneventfully, patient is now on 2 L nasal cannula, his intra-aortic balloon has been removed today patient remains on pressors and on inotropes. Still requiring norepinephrine at 0.02 mcg/kg/min still on milrinone 0.25 mcg/kg/min and on 0.04 units/min of vasopressin. Cardiac output today is 6.5 cardiac index is 3.7 PA pressure 41/17 CVP of 15. Continues to have mediastinal left and right-sided pleural chest tubes in place, had about 780 mL output since surgery. Chest x- ray is showing mostly postoperative changes labs were all reviewed. WBC count i s 15.2 hemoglobin 9.2. Basic metabolic profile is normal, creatinine 1.10 up from 0.88 yesterday Reevaluated today on 09/04/2023, patient remains in the ICU on 3 L nasal cannula, insulin drip at 1.5 units/h still receiving norepinephrine at 0.08 mcg/kg/min milrinone 0.1 mcg/kg/min vasopressin at 0.03 units/min. Cardiac output is 5.0 cardiac index 2.8, patient remains marginal at best, he is sitting at the bedside chair, does not seem to be in distress, on 3 L nasal cannula. Chest x- ray showed no evidence of pulmonary edema no evidence of pneumonia he does have a small tiny apical left pneumothorax. WBC count is 17.7 hemoglobin 9.4. Basic metabolic profile is normal however his BUN is 34 creatinine is 1.52, apparently the patient does have sustained some acute kidney injury most likely related to hypotension/acute tubular necrosis. Patient was reevaluated today on 09/05/2023, remains in the ICU, still requiring multiple drips, he is on dopamine at 2.5 mcg/kg/min norepinephrine at 0.03 mcg/kg/min vasopressin 0.03 units/min patient is also on insulin at 1.5 units/h. Cardiac index remains low at 1.9 cardiac output is relatively low at 3.4. Pulmonary artery pressure 44/18, CVP is 12. Patient does not seem to be very much motivated, he is achieving less than 500 cc on incentive spirometry. The last patient is on 2 L nasal cannula, refusing to participate in physical activity, refusing incentive spirometry, chest tubes, remain in place, prognosis remains guarded. Chest x-ray showed mostly bibasilar atelectasis, mild interstitial prominence, I doubt left-sided pneumothorax as documented by radiology Reevaluate today on 09/06/2023, patient is basically about the same. Patient is in the ICU, he is on multiple drips including higher dose of inotrope, milrinone 0.25 he is on norepinephrine at 0.02 mcg/kg/min vasopressin at 0.03 units/min dopamine at 2.5 mcg/kg/min dobutamine at 2.5 mcg/kg/min insulin at 2.5 units an hour, urine output is low, patient received albumin cardiac index is 2.9 today cardiac output is 5.9. His renal functioning is getting a bit worse, patient apparently the patient is developing what seems to be a cardiorenal syndrome. Chest x-ray is showing atelectasis and bibasilar pleural effusions. Patient is not motivated, does not seem to be interested in getting motivated. And been doing poorly with incentive spirometry Reevaluate today on 09/06, patient is basically about the same, he is now postoperative day #5, sitting at the bedside chair, patient is not motivated what bit remains on multiple inotropes and pressors, patient is receiving dopamine at 2.5 mcg/kg/min dobutamine at 5 mcg/kg/min norepinephrine at 0.06 mcg/kg/min vasopressin at 0.03 units/min and he is also on insulin at 3.5 units/h today he is off milrinone. Cardiac output is 3.8 cardiac index is 2.1 PA pressure 43/15 CVP is 13. Chest x-ray showed mostly atelectasis at the bases. No clear-cut evidence of pulmonary edema. Patient is maintained on 2 L nasal cannula, again the patient is doing extremely poorly with incentive spirometry and does not seem to be motivated at all. Renal functioning seems to be getting worse, his BUN is 63 creatinine 3.54, at this rate I am quite concerned with the patient may end up requiring hemodialysis. This is being addressed by nephrology on the case. Liver enzymes are improving Today on 09/08/2023, patient is now postoperative day #6. Patient is still requiring dobutamine at 0.5 mcg/kg/min, still requiring vasopressin at 0.02 units/min, his norepinephrine is presently on hold, and milrinone was disconti nued. Still on insulin at 3 units/h. Surprisingly the patient is not developing congestive heart failure, but he is developing worsening renal failure, and he may end up requiring renal replacement therapy. His PA pressure 40/18, his cardiac output is 3.9 cardiac index is 2.2 chest x-ray is showing bibasilar atelectasis and small left pleural effusion with a small right pleural effusion [place] remains in place WBC count is 6 hemoglobin 8.7 basic metabolic profile is normal except for bicarb of 15 and again worsening renal profile BUN is up to 71 creatinine 4.40 Progress note dated September 09, 2023. This is a 63-year-old male, who was seen today in room 266. The patient is status post three-vessel bypass grafting. He went to the operating room on September 01. He is currently on room air. He is receiving insulin at 2 units an hour. In addition, the patient is getting lactated Ringer's at 30 cc an hour, and dobutamine at 2.5 mcg/kg/min. The patient will have hemodialysis for the f irst time today. Current labs include a white count 6.8, hemoglobin 8.1, hematocrit 24.9, and a platelet count of 105,000. Sodium 135, potassium 4.6, chlorides 107, CO2 12, anion gap 16, BUN 79, creatinine 5.27. Glucose is 141. Calcium 7.6. AST is 300. ALT is 155. Albumin is 2.8. Chest x-ray shows cardiomegaly, with bilateral pleural effusions. Progress note dated September 10, 2023. This is a 63-year-old male who is seen in room 266. Currently, the patient is on room air. The patient is getting insulin drip at 3 units an hour, and continues on dobutamine for cardiovascular support at 5 mcg/kg/min. The patient is still not very motivated, to improve his overall clinical situation. He does poorly on his incentive spirometer. Current laboratory data includes a white count 8.7, hemoglobin 10 hematocrit 30.4, platelet count 119,000. Sodium 135, potassium 4.5, chlorides 104, CO2 14, anion gap 17, BUN 63, and creatinine 4.33. The most recent glucose was 127. AST is 200, ALT 141. Albumin 2.8. Calcium 7.6. The patient's chest x-ray shows some postoperative changes, but has been relatively stable. Progress note dated September 11, 2023. The patient is seen today in room 266. He is currently undergoing hemodialysis. The goal of hemodialysis today is removal of 1 L of fluid. Patient is on room air. The patient is getting saline at 20 cc an hour. The patient continues on dobutamine, for cardiovascular support at 2.5 mcg/kg/min. Current labs include a white count 11.9, hemoglobin 9.5, hematocrit 29.6, and a platelet count of 128,000. Sodium 132, potassium 4.3, chlorides 101, CO2 12, anion gap 19, BUN 53, creatinine 3.70. AST is 102. ALT is 100. Albumin is 2.8. Today's chest x-ray is very stable, and comparable to the x-ray done yesterday. Progress note dated September 12, 2023. The patient is again seen in room 266. Currently, the patient is doing about the same. The patient is on room air. He is getting saline at 20 cc an hour. He will have a permanent hemodialysis catheter placed today. Labs today include a white count 18, hemoglobin 9.8, hematocrit 30.3, and a platelet count of 142,000. Sodium 131, potassium 3.8, chlorides 99, CO2 20, BUN 46, creatinine 2.99. Glucose of 66. Albumin 2.8. The rest of the labs are reviewed. Chest x-ray shows postoperative changes, and persistent right pleural effusion with basilar atelectasis. Progress note dated September 13, 2023. The patient is seen today in room 266. Currently, the patient is on room air. He is getting saline at 20 cc an hour. The patient did have hemodialysis yesterday, and 2 L was removed. This was on September 11. The patient was to have a permanent hemodialysis catheter placed, but he apparently refused it. Current labs include a white count 23.8, hemoglobin 10, hematocrit 31.1, and platelet count 80,000. Sodium 129, potassium 3.9, chlorides 95, CO2 22, BUN 39, creatinine 3.0. Glucose was 126. Calcium 7.8. Total bilirubin 2.3. Albumin is 2.9. No chest x-ray today. Objective - Vital Signs Vital signs: Vital Signs Temp 97.9 F 09/13/23 08:00 Pulse 81 09/13/23 10:00 Resp 16 09/13/23 10:00 BP 102/67 09/13/23 10:00 Pulse Ox 94 L 09/13/23 07:00 FiO2 40 09/02/23 20:33 Intake & Output 09/12/23 09/13/23 09/13/23 18:59 06:59 18:59 Intake Total 240 480 60 Output Total 10 5 35 Balance 230 475 25 Intake: IV 240 60 60 Lactated Ringers 1,000 ml 20 @ 20 mls/hr IV .Q24H [facility] Rx#:[id number] Sodium Chloride 0.9% 1, 220 60 60 000 ml @ 20 mls/hr IV . Q24H [facility] Rx#:[id number] Intake, IV Titration 20 Amount Sodium Chloride 0.9% 1, 20 000 ml @ 20 mls/hr IV . Q24H [facility] Rx#:[id number] Oral 400 Output: Urine 10 5 35 Other: Voiding Method Indwelling Catheter Indwelling Catheter # Bowel Movements 1 ABP, PAP, CO, CI - Last Documented Arterial Blood Pressure 83/58 Pulmonary Artery Pressure 45/17 Cardiac Output 3.5 Cardiac Index 2 - Exam No acute distress, oriented 3. Currently on room air. HEENT examination is grossly unremarkable. Mucous membranes are moist. No oral lesions. Neck supple. Full range of motion. No adenopathy thyromegaly or neck vein distention. Cardiovascular examination reveals regular rhythm rate. S1-S2 normal. No S3 or S4. No discernible murmur noted. Heart sounds are distant. Heart rate 1 bpm. Lungs reveal scattered rhonchi. No wheezes or crackles. Breath sounds equal bilaterally. Saturation is 95 % on room air. Abdomen soft, but obese, with bowel sounds. No masses or tenderness. Extremities are intact. No cyanosis clubbing or edema. Skin is without rash or lesion. Neurologic examination is brief but nonfocal. - Labs CBC & Chem 7: 09/13/23 04:47 09/13/23 04:52 Labs: Abnormal Lab Results - Last 24 Hours (Table) 09/12/23 09/13/23 09/13/23 Range/Units 11:21 04:47 04:52 WBC 23.8 H (3.8-10.6) k/uL RBC 3.18 L (4.30-5.90) m/uL Hgb 10.0 L (13.0-17.5) gm/dL Hct 31.1 L (39.0-53.0) % RDW 17.0 H (11.5-15.5) % Plt Count 80 L (150-450) k/uL Neutrophils # (Manual) 20.40 H (1.3-7.7) k/uL Monocytes # (Manual) 1.19 H (0-1.0) k/uL Sodium 129 L (137-145) mmol/L Chloride 95 L (98-107) mmol/L BUN 39 H (9-20) mg/dL Creatinine 3.00 H (0.66-1.25) mg/dL Glucose 116 H (74-99) mg/dL POC Glucose (mg/dL) 67 L (70-110) mg/dL Calcium 7.8 L (8.4-10.2) mg/dL Total Bilirubin 2.3 H (0.2-1.3) mg/dL AST 66 H (17-59) U/L ALT 64 H (4-49) U/L Alkaline Phosphatase 198 H (38-126) U/L Total Protein 5.4 L (6.3-8.2) g/dL Albumin 2.9 L (3.5-5.0) g/dL 09/13/23 Range/Units 08:30 WBC (3.8-10.6) k/uL RBC (4.30-5.90) m/uL Hgb (13.0-17.5) gm/dL Hct (39.0-53.0) % RDW (11.5-15.5) % Plt Count (150-450) k/uL Neutrophils # (Manual) (1.3-7.7) k/uL Monocytes # (Manual) (0-1.0) k/uL Sodium (137-145) mmol/L Chloride (98-107) mmol/L BUN (9-20) mg/dL Creatinine (0.66-1.25) mg/dL Glucose (74-99) mg/dL POC Glucose (mg/dL) 126 H (70-110) mg/dL Calcium (8.4-10.2) mg/dL Total Bilirubin (0.2-1.3) mg/dL AST (17-59) U/L ALT (4-49) U/L Alkaline Phosphatase (38-126) U/L Total Protein (6.3-8.2) g/dL Albumin (3.5-5.0) g/dL Assessment and Plan Assessment: Postop day #10, S/P three-vessel bypass grafting. Routine postoperative ventilator management. Chronic systolic CHF, with an ejection fraction of 30 to 35%. Cardiogenic shock and severe LV dysfunction. Peripheral vascular disease. Type 2 diabetes mellitus. Essential hypertension. Hyperlipidemia. History of developmental delay. Bipolar disorder. Chronic anxiety. Prior history of tobacco use. Left apical pneumothorax. Acute kidney injury/ATN, currently requiring hemodialysis. Severe cardiomyopathy. Severe metabolic acidosis. Plan: Plan dated September 09, 2023. The patient is seen today in room 266. He is currently on room air. He is on an insulin drip at 2 units an hour. In addition, for cardiovascular support, he is on dobutamine at 2.5 mcg/kg/min. He is getting lactated Ringer's at 30 cc an hour. Unfortunately, his kidneys have failed, and he will have hemodialysis for the first time today. We will continue to follow, make recommendations along the way. Labs, x-rays, medications are all reviewed. The patient's overall prognosis remains guarded. Plan dated September 10, 2023. The patient is seen today in room 266. The patient continues on an insulin drip at 3 units an hour, and also is on dobutamine, for cardiovascular support at 5 mcg/kg/min. The patient's overall clinical situation remains about the same. He is not particularly motivated at this point. The patient does poorly on his incentive spirometer. Labs, x-rays, and medications are reviewed. We will continue to follow the patient, make recommendations along the way. Prognosis is certainly guarded. Plan dated September 11, 2023. The patient is seen today in room 266. The patient continues on dobutamine at 2.5 mcg/kg/min. The patient is on room air. He is currently undergoing hemodialysis, with a goal today of removing 1 L of fluid. The patient is also g etting saline at 20 cc an hour. Labs, x-rays, and medications are reviewed. The patient is not particularly motivated to get better. He does very poorly on his incentive spirometer. We will continue to follow and make recommendations along the way. Prognosis is currently guarded. Plan dated September 12, 2023. The patient is seen again in room 266. He continues on room air. He is not receiving any fluids other than saline at 20 cc an hour. A permanent hemodialysis catheter will be placed later today. Labs are reviewed. X-rays are reviewed. All medications are reviewed. The patient continues to do poorly with his incentive spirometer. We will continue to follow make recommendations. Prognosis is guarded. Plan dated September 13, 2023. The patient apparently refused his hemodialysis catheter yesterday. The patient did have hemodialysis yesterday, and 2 L of fluid was removed. The patient is currently getting saline at 20 cc an hour. The patient is currently on room air. Labs, x-rays, and medications are reviewed. We will continue to follow, and make recommendations along the way. Prognosis is guarded. The patient has not been particularly motivated. He does poorly on his incentive spirometer. Time with Patient: Less than 30
[2023-09-13 11:36] LABS: Appearance,Urine Turbid (Clear); Bacteria,Urine Few /hpf; Bilirubin,Urine Negative (Negative); Blood,Urine Large (Negative); Color,Urine Dark Brown; Glucose,Urine (UA) 1+ (Negative); Hyaline Casts,Urine 28 /lpf (0-2); Ketones,Urine Negative (Negative); Leukocyte Esterase,Urine Large (Negative); Mucus,Urine Rare /hpf; Nitrite,Urine Negative (Negative); PH, Urine 5.5 (5.0-8.0); Protein,Urine 2+ (Negative); RBC,Urine >182 /hpf (0-5); Squamous Epithelial Cell,Urine 3 /hpf (0-4); Urobilinogen,Urine <2.0 mg/dL (<2.0); WBC,Urine >182 /hpf (0-5)
[2023-09-13 11:50] LABS: Glucose,Whole Blood 137 mg/dL (70-110)
[2023-09-13 12:56] LABS: Glucose,Whole Blood 128 mg/dL (70-110)
[2023-09-13 16:43] LABS: Glucose,Whole Blood 107 mg/dL (70-110)
[2023-09-13 20:00] LABS: Glucose,Whole Blood 218 mg/dL (70-110)
--- NOTE | 2023-09-13 21:51 | PN ---
PROGRESS NOTE SUBJECTIVE: Wes is a 63-year-old gentleman with CAD, status post bypass surgery, renal failure on hemodialysis. The patient looks more alert and awake today. Denies any symptoms. CURRENT MEDICATIONS: 1. Aspirin. 2. Plavix. 3. Lopressor. OBJECTIVE: VITAL SIGNS: Heart rate is 80 beats per minute. Blood pressure is 102/69, respiratory rate is 16. NECK: There is no jugular venous distention. Carotid upstroke is normal. CHEST: Reveals diminished air entry at the bases. HEART: Reveals first and second heart sounds. Systolic murmur at the apex. ABDOMEN: Soft. EXTREMITIES: Reveals bilateral edema. LABORATORY DATA: Labs show BUN of 39, creatinine is 3, sodium is 129. ASSESSMENT: 1. Coronary artery disease, status post coronary artery bypass graft. 2. Renal failure. 3. Hypotension. PLAN: I will continue the patient on current medications. MMODL / IJN: [id number] /
[2023-09-13 21:53] LABS: Glucose,Whole Blood 199 mg/dL (70-110)
[2023-09-14 05:03] LABS: ALT 54 U/L (4-49); AST 52 U/L (17-59); African American GFR (CKD) 27 (>60 ml/min/1.73 sqM); Albumin 2.9 g/dL (3.5-5.0); Alkaline Phosphatase 221 U/L (38-126); Anion Gap 13 mmol/L; Blood Urea Nitrogen 40 mg/dL (9-20); Calcium 7.7 mg/dL (8.4-10.2); Carbon Dioxide 21 mmol/L (22-30); Chloride 95 mmol/L (98-107); Magnesium 1.9 mg/dL (1.6-2.3); Non-African American GFR(CKD) 23 (>60 ml/min/1.73 sqM); Phosphorus 4.7 mg/dL (2.5-4.5); Potassium 4.1 mmol/L (3.5-5.1); Sodium 129 mmol/L (137-145); Total Bilirubin 2.2 mg/dL (0.2-1.3); Total Protein 5.5 g/dL (6.3-8.2)
[2023-09-14 05:12] LABS: Anisocytosis Slight; HGB 9.7 gm/dL (13.0-17.5); Hypochromasia Slight; MCH 31.3 pg (25.0-35.0); MCHC 31.2 g/dL (31.0-37.0); MCV 100.5 fL (80.0-100.0); Macrocytosis Slight; Mean Platelet Volume 11.3; RBC 3.09 m/uL (4.30-5.90); RDW 17.4 % (11.5-15.5); WBC 27.2 k/uL (3.8-10.6)
[2023-09-14 05:14] LABS: Platelet Count 69 k/uL (150-450)
[2023-09-14 05:20] LABS: Glucose 176 mg/dL (74-99)
[2023-09-14 06:53] LABS: Glucose,Whole Blood 207 mg/dL (70-110)
--- NOTE | 2023-09-14 07:41 | XR ---
EXAMINATION TYPE: XR chest 1V portable DATE OF EXAM: 09/14/2023 COMPARISON: 09/12/2023 HISTORY: post cardiac surgery FINDINGS: Again noted are postoperative changes of CABG. Left atrial clip is in place. There are layering effusions noted. There is pulmonary venous congestion with scattered infiltrates s een bilaterally without significant change. Continued cardiomegaly. No sizable pneumothorax. Pleural effusion unchanged. IMPRESSION: 1. Stable portable chest. Clinical correlation and follow up until resolution is recommended.
[2023-09-14] MEDS: NOREPINEPHRINE 4 MG in SODIUM CHLORIDE 0.9% 250 ML IV SCH (07:55)
--- NOTE | 2023-09-14 09:37 | P.PN ---
Subjective Progress Note Date: 09/14/23 Principal diagnosis: Triple-vessel coronary artery disease with left main disease. Past medical history significant for hypertension, hyperlipidemia, diabetes mellitus, chronic systolic heart failure with reduced ejection fraction/ischemic cardiomyopathy, bipolar disorder, obesity, peripheral vascular disease, developmental delay, previous tobacco dependence, noncompliance POD #13 right heart catheterization, ultrasound guided access, placement of intra-aortic balloon pump from right femoral access performed by Dr. Monreal. POD #12 on pump coronary artery bypass grafting x 3, left internal thoracic artery (in-situ) sequential to diagonal and left anterior descending coronary artery, right greater saphenous vein from aorta to obtuse marginal artery #1, left atrial appendage ligation with #35mm AtriClip, endoscopic bilateral greater saphenous vein harvest, graft flow measurements using the [employer] flow meter system, trans-esophageal echo Postoperative acute blood loss anemia and thrombocytopenia, expected given hemodilution and cardiopulmonary bypass LEONARDO, status post placement of temp dialysis cath Elevated transaminases, likely due to hypoperfusion, trending down Cardiogenic shock, resolved The patient was seen and examined in follow-up today September 14, 2023 at his bedside in the intensive care unit. He is currently sitting up to the bedside chair, is awake, alert, oriented x 3 and is in no acute apparent distress. The patient is more awake and alert today than he has been in the last couple of days. He denies any complaints of pain or shortness of breath at this time. Bedside telemetry is showing sinus bradycardia heart rate 44 bpm. His metoprolol tartrate has been discontinued. Oxygen saturations are 97% on room air and he is achieving 500 mL on his incentive spirometry with much encouragement. Left femoral dialysis catheter is in place, he underwent hemodialysis yesterday with 1.4 L of ultrafiltration completed. Discharge plan sonny is in place, will likely need discharge to long-term acute care due to high level of care, needs extensive rehab, hemodialysis, and daily physician monitoring with daily changes in medications and plan based on daily labs. He is scheduled for a permacath placement on Saturday, September 16, [address]23 to be placed by Dr. Weller. Kidney function is slightly improved. WBC count today is 27.2, he did have a positive bandemia yesterday. The patient remains afebrile. His urinalysis showed large leukocyte Estrace, and greater than 182 WBCs and few bacteria yesterday, urine culture remains pending. He was started on Ancef 1 g every 8 hours IV piggyback empirically. Chest x-ray and laboratory results reviewed. Objective - Vital Signs Vital signs: Vital Signs Temp 97.6 F 09/14/23 08:00 Pulse 70 09/14/23 08:20 Resp 18 09/14/23 08:20 BP 118/71 09/14/23 08:00 Pulse Ox 97 09/14/23 08:00 FiO2 40 09/02/23 20:33 Intake & Output 09/13/23 09/14/23 09/14/23 18:59 06:59 18:59 Intake Total 500 350 Output Total 1440 0 0 Balance -940 0 350 Intake: IV 100 Sodium Chloride 0.9% 1, 100 000 ml @ 20 mls/hr IV . [facility] Rx#:[id number] Oral 350 Hemodialysis 400 Output: Urine 40 0 0 Hemodialysis 1400 ABP, PAP, CO, CI - Last Documented Arterial Blood Pressure 83/58 Pulmonary Artery Pressure 45/17 Cardiac Output 3.5 Cardiac Index 2 - Exam CONSTITUTIONAL: Sitting up to the bedside chair in the intensive care unit, appears comfortable, cooperative, no apparent acute distress. HEENT: Neck is supple, no JVD, no lymphadenopathy. RESPIRATORY: Lungs sounds essentially clear throughout, diminished to his bilateral bases. Respirations are symmetrical and nonlabored. Currently on room air with oxygen saturations 97%. Able to achieve 500 mL on his incentive spirometry with encouragement and instruction. Weak cough. CARDIOVASCULAR: Regular rhythm and rate. S1 and S2 present, negative for S3, gallop or murmur. Bedside telemetry showing sinus bradycardia heart rate 44 bpm . Sternum is stable. Palpable peripheral pulses bilaterally, +1 edema generalized. No calf pain or tenderness noted. Heart hugger in place with patient demonstrating appropriate use with much encouragement. Knee-high VARUN hose and sequential compression devices in place to his bilateral lower e xtremities. GASTROINTESTINAL: Abdomen soft, nontender, nondistended. Active bowel sounds present 4 quadrants. Tolerating minimal diet with encouragement and assistance. No guarding or rigidity. Bowel movement on September 10, 2023 GENITOURINARY: Hemodialysis yesterday with 1400 mL of ultrafiltration completed. INTEGUMENTARY: Skin is warm and dry with no evidence of clubbing or cyanosis. Midline sternal incision clean dry and well approximated, covered with dry intact dressing. Bilateral lower extremity EVH sites well approximated without redness or drainage. Erythema to his coccyx, dressing clean, dry and intact. NEUROLOGIC: Cranial nerves II through XII intact. MUSKULOSKELETAL: Able to move all extremities, strength equal bilaterally, generalized weakness. PSYCHIATRIC: Alert and oriented to person place and disoriented to time, flat affect. - Allied health notes Allied health notes reviewed: nursing - Labs CBC & Chem 7: 09/14/23 04:04 09/14/23 04:04 Labs: Abnormal Lab Results - Last 24 Hours (Table) 09/13/23 09/13/23 09/13/23 Range/Units 07:45 11:48 12:55 WBC (3.8-10.6) k/uL RBC (4.30-5.90) m/uL Hgb (13.0-17.5) gm/dL Hct (39.0-53.0) % MCV (80.0-100.0) fL RDW (11.5-15.5) % Plt Count (150-450) k/uL Sodium (137-145) mmol/L Chloride (98-107) mmol/L Carbon Dioxide (22-30) mmol/L BUN (9-20) mg/dL Creatinine (0.66-1.25) mg/dL Glucose (74-99) mg/dL POC Glucose (mg/dL) 137 H 128 H (70-110) mg/dL Calcium (8.4-10.2) mg/dL Phosphorus (2.5-4.5) mg/dL Total Bilirubin (0.2-1.3) mg/dL ALT (4-49) U/L Alkaline Phosphatase (38-126) U/L Total Protein (6.3-8.2) g/dL Albumin (3.5-5.0) g/dL Urine Protein 2+ H (Negative) Urine Glucose (UA) 1+ H (Negative) Urine Blood Large H (Negative) Ur Leukocyte Esterase Large H (Negative) Urine RBC >182 H (0-5) /hpf Urine WBC >182 H (0-5) /hpf Urine Bacteria Few H (None) /hpf Hyaline Casts 28 H (0-2) /lpf Urine Mucus Rare H (None) /hpf 0409/13/23 09/14/23 Range/Units 19:59 21:52 04:04 WBC 27.2 H (3.8-10.6) k/uL RBC 3.09 L (4.30-5.90) m/uL Hgb 9.7 L (13.0-17.5) gm/dL Hct 31.0 L (39.0-53.0) % MCV 100.5 H (80.0-100.0) fL RDW 17.4 H (11.5-15.5) % Plt Count 69 L (150-450) k/uL Sodium (137-145) mmol/L Chloride (98-107) mmol/L Carbon Dioxide (22-30) mmol/L BUN (9-20) mg/dL Creatinine (0.66-1.25) mg/dL Glucose (74-99) mg/dL POC Glucose (mg/dL) 218 H 199 H (70-110) mg/dL Calcium (8.4-10.2) mg/dL Phosphorus (2.5-4.5) mg/dL Total Bilirubin (0.2-1.3) mg/dL ALT (4-49) U/L Alkaline Phosphatase (38-126) U/L Total Protein (6.3-8.2) g/dL Albumin (3.5-5.0) g/dL Urine Protein (Negative) Urine Glucose (UA) (Negative) Urine Blood (Negative) Ur Leukocyte Esterase (Negative) Urine RBC (0-5) /hpf Urine WBC (0-5) /hpf Urine Bacteria (None) /hpf Hyaline Casts (0-2) /lpf Urine Mucus (None) /hpf 09/14/23 09/14/23 Range/Units 04:04 06:51 WBC (3.8-10.6) k/uL RBC (4.30-5.90) m/uL Hgb (13.0-17.5) gm/dL Hct (39.0-53.0) % MCV (80.0-100.0) fL RDW (11.5-15.5) % Plt Count (150-450) k/uL Sodium 129 L (137-145) mmol/L Chloride 95 L (98-107) mmol/L Carbon Dioxide 21 L (22-30) mmol/L BUN 40 H (9-20) mg/dL Creatinine 2.83 H (0.66-1.25) mg/dL Glucose 176 H (74-99) mg/dL POC Glucose (mg/dL) 207 H (70-110) mg/dL Calcium 7.7 L (8.4-10.2) mg/dL Phosphorus 4.7 H (2.5-4.5) mg/dL Total Bilirubin 2.2 H (0.2-1.3) mg/dL ALT 54 H (4-49) U/L Alkaline Phosphatase 221 H (38-126) U/L Total Protein 5.5 L (6.3-8.2) g/dL Albumin 2.9 L (3.5-5.0) g/dL Urine Protein (Negative) Urine Glucose (UA) (Negative) Urine Blood (Negative) Ur Leukocyte Esterase (Negative) Urine RBC (0-5) /hpf Urine WBC (0-5) /hpf Urine Bacteria (None) /hpf Hyaline Casts (0-2) /lpf Urine Mucus (None) /hpf - Imaging and Cardiology Chest x-ray: report reviewed, image reviewed Assessment and Plan Assessment: Multivessel coronary artery disease with left main disease, status post three- vessel on pump coronary artery bypass grafting surgery Chronic systolic congestive heart failure with an ejection fraction of 30 to 35%, status post preoperative intra-aortic balloon pump placement Cardiomyopathy Hypertension, currently on midodrine for blood pressure support Hyperlipidemia Diabetes mellitus type 2, with hemoglobin A1c 10.9 in April 2023, preoperative hemoglobin A1c 7.4% on September 01, 2023 Peripheral arterial disease, recent ABIs to right 0.95 and left 0.97 Bilateral pleural effusions on July 16, 2023 CT scan of the chest Obesity with a BMI of 32.7 kg/m Bipolar disorder Developmentally delayed Anxiety Noncompliance with medical therapy Remote history of nicotine dependence quit smoking over 20 years ago, with an FEV1 of 55% of predicted value and a base volume of 1.43 Postoperative acute blood loss anemia and thrombocytopenia, expected Incidental finding of tiny left pneumothorax, not a complication, resolved Acute kidney injury, status post dialysis cath placement Elevated transaminase and cardiogenic shock, likely from hypoperfusion Plan: Continue aspirin, Plavix . Statin discontinued due to elevated transaminases, will restart when able. Metoprolol to tartrate was discontinued due to episodes of bradycardia. Epicardial pacemaker wires were removed without incident yesterday September 13, 2023. Continue midodrine 5 mg p.o. 3 times daily per cardiology management. Encourage use of incentive spirometry 10 times every hour while awake. Bronchodilators per pulmonology. Increase activity, ambulate as tolerated. PT/OT/cardiac rehab following. Will monitor daily labs and chest x-rays. Dialysis per nephrology, dialysis daily, scheduled for permacath Saturday, September 16, 2023. Avoid nephrotoxic agents. Pain control per current medication regimen. Avoid to Toradol. No narcotics. Continue Hobson catheter for another 24 hours, continue to record strict accurate intake and output. Insulin management per internal medicine. Preoperative hemoglobin A1c 7.4%. GI/DVT prophylaxis. Daily weights. Encourage oral intake, supplements ordered. Patient needs continued encouragement to participate in his care. Prognosis remains very guarded. Patient will likely need to be discharged to LTAC due to high level of care, needs extensive rehab, dialysis, daily physician monitoring with daily change in medications and plan based on daily labs. Social work to obtain insurance authorization when patient is ready to be discharged. More recommendations to follow based on patient's clinical course. Time with Patient: Greater than 30
--- NOTE | 2023-09-14 11:41 | P.PN ---
Subjective Progress Note Date: 09/14/23 Principal diagnosis: Coronary artery disease. 63-year-old male patient, was brought into the intensive care unit after having an antibiotic balloon pump inserted this morning and this was done in preparation for coronary artery bypass surgery. The patient is known to have CAD, chronic CHF with impaired ejection fraction of 30 to 35%. The patient has been hospitalized with [facility] and an earlier cardiac catheterization from April 2023 showed a 70% left main, 70% proximal LAD, 30% circumflex and 70% obtuse marginal 1 and 60% mid RCA. The patient has impaired LV function with an EF around 30 to 35% along with mild to moderate MR, and severe pulm hypertension. The patient is scheduled to undergo coronary artery bypass surgery tomorrow. He is currently on room air oxygen. Free of any chest pain. Hemodynamically stable. Augmented blood pressure is around 80. He has some developmental delay and his other comorbid conditions include diabetes rachel litus type 2, hypertension and hyperlipidemia. Blood work shows a white cell count of 9, hemoglobin 11.8, platelet count of 206, normal coagulation profile, BUN of 27 with a creatinine of 1 and sodium levels at 138. LFTs are normal. His CAT scan of the chest that was done on 07/16/2023 showed cardiomegaly with small right and left-sided pleural effusion. This is consistent with CHF. No mediastinal lymphadenopathy. The patient is seen today September 02, 2023 in follow-up in the intensive care unit following surgery. He had undergone an on pump coronary artery bypass grafting x 3 with a left internal thoracic artery sequential to diagonal and the LAD. Right SVG from the aorta to the obtuse marginal #1. Left atrial appendage ligation and clipping. He remains intubated on the mechanical ventilator and assist-control mode at a rate of 14, tidal volume 500, FiO2 40% and a PEEP of 10. He remains on propofol at 20 mcg/kg/min. Lactated Ringer's at 50 MLS per hour. He is requiring vasopressin at 0.04 units/min. Insulin drip at 1 unit/h. Norepinephrine at 0.05 mcg/kg/min. Milrinone at 0.25 mcg/kg/min intra-aortic balloon pump remains in place. Mediastinal and right and left split chest tubes remain in place. Cardiac output is 4.7. Cardiac index 2.6. Received albumin. Receiving cefazolin. Heparin for DVT prophylaxis. White count 11.7. Hemoglobin 11.5. Platelets 84,000. INR 1.4. Sodium 141. Potassium 3.7. Bicarb 22. BUN 22. Creatinine 0.88. Glucose 101. X-ray no overt failure, pneumothorax or sizable consolidation. ABG's are pending. Patient was today on 09/03/2023, patient was extubated last night uneventfully, patient is now on 2 L nasal cannula, his intra-aortic balloon has been removed today patient remains on pressors and on inotropes. Still requiring norepinephrine at 0.02 mcg/kg/min still on milrinone 0.25 mcg/kg/min and on 0.04 units/min of vasopressin. Cardiac output today is 6.5 cardiac index is 3.7 PA pressure 41/17 CVP of 15. Continues to have mediastinal left and right-sided pleural chest tubes in place, had about 780 mL output since surgery. Chest x- ray is showing mostly postoperative changes labs were all reviewed. WBC count i s 15.2 hemoglobin 9.2. Basic metabolic profile is normal, creatinine 1.10 up from 0.88 yesterday Reevaluated today on 09/04/2023, patient remains in the ICU on 3 L nasal cannula, insulin drip at 1.5 units/h still receiving norepinephrine at 0.08 mcg/kg/min milrinone 0.1 mcg/kg/min vasopressin at 0.03 units/min. Cardiac output is 5.0 cardiac index 2.8, patient remains marginal at best, he is sitting at the bedside chair, does not seem to be in distress, on 3 L nasal cannula. Chest x- ray showed no evidence of pulmonary edema no evidence of pneumonia he does have a small tiny apical left pneumothorax. WBC count is 17.7 hemoglobin 9.4. Basic metabolic profile is normal however his BUN is 34 creatinine is 1.52, apparently the patient does have sustained some acute kidney injury most likely related to hypotension/acute tubular necrosis. Patient was reevaluated today on 09/05/2023, remains in the ICU, still requiring multiple drips, he is on dopamine at 2.5 mcg/kg/min norepinephrine at 0.03 mcg/kg/min vasopressin 0.03 units/min patient is also on insulin at 1.5 units/h. Cardiac index remains low at 1.9 cardiac output is relatively low at 3.4. Pulmonary artery pressure 44/18, CVP is 12. Patient does not seem to be very much motivated, he is achieving less than 500 cc on incentive spirometry. The last patient is on 2 L nasal cannula, refusing to participate in physical activity, refusing incentive spirometry, chest tubes, remain in place, prognosis remains guarded. Chest x-ray showed mostly bibasilar atelectasis, mild interstitial prominence, I doubt left-sided pneumothorax as documented by radiology Reevaluate today on 09/06/2023, patient is basically about the same. Patient is in the ICU, he is on multiple drips including higher dose of inotrope, milrinone 0.25 he is on norepinephrine at 0.02 mcg/kg/min vasopressin at 0.03 units/min dopamine at 2.5 mcg/kg/min dobutamine at 2.5 mcg/kg/min insulin at 2.5 units an hour, urine output is low, patient received albumin cardiac index is 2.9 today cardiac output is 5.9. His renal functioning is getting a bit worse, patient apparently the patient is developing what seems to be a cardiorenal syndrome. Chest x-ray is showing atelectasis and bibasilar pleural effusions. Patient is not motivated, does not seem to be interested in getting motivated. And been doing poorly with incentive spirometry Reevaluate today on 09/06, patient is basically about the same, he is now postoperative day #5, sitting at the bedside chair, patient is not motivated what bit remains on multiple inotropes and pressors, patient is receiving dopamine at 2.5 mcg/kg/min dobutamine at 5 mcg/kg/min norepinephrine at 0.06 mcg/kg/min vasopressin at 0.03 units/min and he is also on insulin at 3.5 units/h today he is off milrinone. Cardiac output is 3.8 cardiac index is 2.1 PA pressure 43/15 CVP is 13. Chest x-ray showed mostly atelectasis at the bases. No clear-cut evidence of pulmonary edema. Patient is maintained on 2 L nasal cannula, again the patient is doing extremely poorly with incentive spirometry and does not seem to be motivated at all. Renal functioning seems to be getting worse, his BUN is 63 creatinine 3.54, at this rate I am quite concerned with the patient may end up requiring hemodialysis. This is being addressed by nephrology on the case. Liver enzymes are improving Today on 09/08/2023, patient is now postoperative day #6. Patient is still requiring dobutamine at 0.5 mcg/kg/min, still requiring vasopressin at 0.02 units/min, his norepinephrine is presently on hold, and milrinone was disconti nued. Still on insulin at 3 units/h. Surprisingly the patient is not developing congestive heart failure, but he is developing worsening renal failure, and he may end up requiring renal replacement therapy. His PA pressure 40/18, his cardiac output is 3.9 cardiac index is 2.2 chest x-ray is showing bibasilar atelectasis and small left pleural effusion with a small right pleural effusion [place] remains in place WBC count is 6 hemoglobin 8.7 basic metabolic profile is normal except for bicarb of 15 and again worsening renal profile BUN is up to 71 creatinine 4.40 Progress note dated September 09, 2023. This is a 63-year-old male, who was seen today in room 266. The patient is status post three-vessel bypass grafting. He went to the operating room on September 01. He is currently on room air. He is receiving insulin at 2 units an hour. In addition, the patient is getting lactated Ringer's at 30 cc an hour, and dobutamine at 2.5 mcg/kg/min. The patient will have hemodialysis for the f irst time today. Current labs include a white count 6.8, hemoglobin 8.1, hematocrit 24.9, and a platelet count of 105,000. Sodium 135, potassium 4.6, chlorides 107, CO2 12, anion gap 16, BUN 79, creatinine 5.27. Glucose is 141. Calcium 7.6. AST is 300. ALT is 155. Albumin is 2.8. Chest x-ray shows cardiomegaly, with bilateral pleural effusions. Progress note dated September 10, 2023. This is a 63-year-old male who is seen in room 266. Currently, the patient is on room air. The patient is getting insulin drip at 3 units an hour, and continues on dobutamine for cardiovascular support at 5 mcg/kg/min. The patient is still not very motivated, to improve his overall clinical situation. He does poorly on his incentive spirometer. Current laboratory data includes a white count 8.7, hemoglobin 10 hematocrit 30.4, platelet count 119,000. Sodium 135, potassium 4.5, chlorides 104, CO2 14, anion gap 17, BUN 63, and creatinine 4.33. The most recent glucose was 127. AST is 200, ALT 141. Albumin 2.8. Calcium 7.6. The patient's chest x-ray shows some postoperative changes, but has been relatively stable. Progress note dated September 11, 2023. The patient is seen today in room 266. He is currently undergoing hemodialysis. The goal of hemodialysis today is removal of 1 L of fluid. Patient is on room air. The patient is getting saline at 20 cc an hour. The patient continues on dobutamine, for cardiovascular support at 2.5 mcg/kg/min. Current labs include a white count 11.9, hemoglobin 9.5, hematocrit 29.6, and a platelet count of 128,000. Sodium 132, potassium 4.3, chlorides 101, CO2 12, anion gap 19, BUN 53, creatinine 3.70. AST is 102. ALT is 100. Albumin is 2.8. Today's chest x-ray is very stable, and comparable to the x-ray done yesterday. Progress note dated September 12, 2023. The patient is again seen in room 266. Currently, the patient is doing about the same. The patient is on room air. He is getting saline at 20 cc an hour. He will have a permanent hemodialysis catheter placed today. Labs today include a white count 18, hemoglobin 9.8, hematocrit 30.3, and a platelet count of 142,000. Sodium 131, potassium 3.8, chlorides 99, CO2 20, BUN 46, creatinine 2.99. Glucose of 66. Albumin 2.8. The rest of the labs are reviewed. Chest x-ray shows postoperative changes, and persistent right pleural effusion with basilar atelectasis. Progress note dated September 13, 2023. The patient is seen today in room 266. Currently, the patient is on room air. He is getting saline at 20 cc an hour. The patient did have hemodialysis yesterday, and 2 L was removed. This was on September 11. The patient was to have a permanent hemodialysis catheter placed, but he apparently refused it. Current labs include a white count 23.8, hemoglobin 10, hematocrit 31.1, and platelet count 80,000. Sodium 129, potassium 3.9, chlorides 95, CO2 22, BUN 39, creatinine 3.0. Glucose was 126. Calcium 7.8. Total bilirubin 2.3. Albumin is 2.9. No chest x-ray today. Progress note dated September 14, 2023. The patient is again seen today in room 266. Currently he is on room air. The patient is not receiving any IV fluids. He did have hemodialysis yesterday. 1 L was removed, on September 12. He has no specific complaints today. Still doing very poorly on his incentive spirometer. Current labs include a white count 27.2, hemoglobin 9.7, hematocrit 31, and platelet count 69,000. Sodium 129, potassium 4.1, chloride 95, CO2 21, BUN 40, creatinine 2.83. Glucose is 207. Calcium 7.7. Phosphorus 4.7. Magnesium 1.9. Albumin 2.9. Chest x-ray shows some mild fluid overload. The chest x-ray is essentially unchanged. Objective - Vital Signs Vital signs: Vital Signs Temp 97.6 F 09/14/23 08:00 Pulse 126 H 09/14/23 10:00 Resp 16 09/14/23 10:00 BP 106/56 09/14/23 10:00 Pulse Ox 97 09/14/23 08:00 FiO2 40 09/02/23 20:33 Intake & Output 09/13/23 09/14/23 09/14/23 18:59 06:59 18:59 Intake Total 500 750 Output Total 1440 0 0 Balance -940 0 750 Intake: IV 100 50 Sodium Chloride 0.9% 1, 100 000 ml @ 20 mls/hr IV . Q24H [facility] Rx#:[id number] ceFAZolin 1,000 mg In 50 Sodium Chloride 0.9% 50 ml @ 100 mls/hr IVPB Q8HR [facility] Rx#:[id number] Oral 700 Hemodialysis 400 Output: Urine 40 0 0 Hemodialysis 1400 ABP, PAP, CO, CI - Last Documented Arterial Blood Pressure 83/58 Pulmonary Artery Pressure 45/17 Cardiac Output 3.5 Cardiac Index 2 - Exam No acute distress, oriented 3. Currently on room air. HEENT examination is grossly unremarkable. Mucous membranes are moist. No oral lesions. Neck supple. Full range of motion. No adenopathy thyromegaly or neck vein distention. Cardiovascular examination reveals regular rhythm rate. S1-S2 normal. No S3 or S4. No discernible murmur noted. Heart sounds are distant. Heart rate is 92 bpm. Lungs reveal scattered rhonchi. No wheezes or crackles. Breath sounds equal bilaterally. Saturation is 96 % on room air. Abdomen soft, but obese, with bowel sounds. No masses or tenderness. Extremities are intact. No cyanosis clubbing or edema. Skin is without rash or lesion. Neurologic examination is brief but nonfocal. - Labs CBC & Chem 7: 09/14/23 04:04 09/14/23 04:04 Labs: Abnormal Lab Results - Last 24 Hours (Table) 09/13/23 09/13/23 09/13/23 Range/Units 07:45 11:48 12:55 WBC (3.8-10.6) k/uL RBC (4.30-5.90) m/uL Hgb (13.0-17.5) gm/dL Hct (39.0-53.0) % MCV (80.0-100.0) fL RDW (11.5-15.5) % Plt Count (150-450) k/uL Sodium (137-145) mmol/L Chloride (98-107) mmol/L Carbon Dioxide (22-30) mmol/L BUN (9-20) mg/dL Creatinine (0.66-1.25) mg/dL Glucose (74-99) mg/dL POC Glucose (mg/dL) 137 H 128 H (70-110) mg/dL Calcium (8.4-10.2) mg/dL Phosphorus (2.5-4.5) mg/dL Total Bilirubin (0.2-1.3) mg/dL ALT (4-49) U/L Alkaline Phosphatase (38-126) U/L Total Protein (6.3-8.2) g/dL Albumin (3.5-5.0) g/dL Urine Protein 2+ H (Negative) Urine Glucose (UA) 1+ H (Negative) Urine Blood Large H (Negative) Ur Leukocyte Esterase Large H (Negative) Urine RBC >182 H (0-5) /hpf Urine WBC >182 H (0-5) /hpf Urine Bacteria Few H (None) /hpf Hyaline Casts 28 H (0-2) /lpf Urine Mucus Rare H (None) /hpf 09/13/23 09/13/23 09/14/23 Range/Units 19:59 21:52 04:04 WBC 27.2 H (3.8-10.6) k/uL RBC 3.09 L (4.30-5.90) m/uL Hgb 9.7 L (13.0-17.5) gm/dL Hct 31.0 L (39.0-53.0) % MCV 100.5 H (80.0-100.0) fL RDW 17.4 H (11.5-15.5) % Plt Count 69 L (150-450) k/uL Sodium (137-145) mmol/L Chloride (98-107) mmol/L Carbon Dioxide (22-30) mmol/L BUN (9-20) mg/dL Creatinine (0.66-1.25) mg/dL Glucose (74-99) mg/dL POC Glucose (mg/dL) 218 H 199 H (70-110) mg/dL Calcium (8.4-10.2) mg/dL Phosphorus (2.5-4.5) mg/dL Total Bilirubin (0.2-1.3) mg/dL ALT (4-49) U/L Alkaline Phosphatase (38-126) U/L Total Protein (6.3-8.2) g/dL Albumin (3.5-5.0) g/dL Urine Protein (Negative) Urine Glucose (UA) (Negative) Urine Blood (Negative) Ur Leukocyte Esterase (Negative) Urine RBC (0-5) /hpf Urine WBC (0-5) /hpf Urine Bacteria (None) /hpf Hyaline Casts (0-2) /lpf Urine Mucus (None) /hpf 09/14/23 09/14/23 Range/Units 04:04 06:51 WBC (3.8-10.6) k/uL RBC (4.30-5.90) m/uL Hgb (13.0-17.5) gm/dL Hct (39.0-53.0) % MCV (80.0-100.0) fL RDW (11.5-15.5) % Plt Count (150-450) k/uL Sodium 129 L (137-145) mmol/L Chloride 95 L (98-107) mmol/L Carbon Dioxide 21 L (22-30) mmol/L BUN 40 H (9-20) mg/dL Creatinine 2.83 H (0.66-1.25) mg/dL Glucose 176 H (74-99) mg/dL POC Glucose (mg/dL) 207 H (70-110) mg/dL Calcium 7.7 L (8.4-10.2) mg/dL Phosphorus 4.7 H (2.5-4.5) mg/dL Total Bilirubin 2.2 H (0.2-1.3) mg/dL ALT 54 H (4-49) U/L Alkaline Phosphatase 221 H (38-126) U/L Total Protein 5.5 L (6.3-8.2) g/dL Albumin 2.9 L (3.5-5.0) g/dL Urine Protein (Negative) Urine Glucose (UA) (Negative) Urine Blood (Negative) Ur Leukocyte Esterase (Negative) Urine RBC (0-5) /hpf Urine WBC (0-5) /hpf Urine Bacteria (None) /hpf Hyaline Casts (0-2) /lpf Urine Mucus (None) /hpf Assessment and Plan Assessment: Postop day #11, S/P three-vessel bypass grafting. Routine postoperative ventilator management. Chronic systolic CHF, with an ejection fraction of 30 to 35%. Cardiogenic shock and severe LV dysfunction. Peripheral vascular disease. Type 2 diabetes mellitus. Essential hypertension. Hyperlipidemia. History of developmental delay. Bipolar disorder. Chronic anxiety. Prior history of tobacco use. Left apical pneumothorax. Acute kidney injury/ATN, currently requiring hemodialysis. Severe cardiomyopathy. Severe metabolic acidosis. Plan: Plan dated September 09, 2023. The patient is seen today in room 266. He is currently on room air. He is on an insulin drip at 2 units an hour. In addition, for cardiovascular support, he is on dobutamine at 2.5 mcg/kg/min. He is getting lactated Ringer's at 30 cc an hour. Unfortunately, his kidneys have failed, and he will have hemodialysis for the first time today. We will continue to follow, make recommendations along t he way. Labs, x-rays, medications are all reviewed. The patient's overall prognosis remains guarded. Plan dated September 10, 2023. The patient is seen today in room 266. The patient continues on an insulin drip at 3 units an hour, and also is on dobutamine, for cardiovascular support at 5 mcg/kg/min. The patient's overall clinical situation remains about the same. He is not particularly motivated at this point. The patient does poorly on his incentive spirometer. Labs, x-rays, and medications are reviewed. We will continue to follow the patient, make recommendations along the way. Prognosis is certainly guarded. Plan dated September 11, 2023. The patient is seen today in room 266. The patient continues on dobutamine at 2.5 mcg/kg/min. The patient is on room air. He is currently undergoing hemodialysis, with a goal today of removing 1 L of fluid. The patient is also getting saline at 20 cc an hour. Labs, x-rays, and medications are reviewed. The patient is not particularly motivated to get better. He does very poorly on his incentive spirometer. We will continue to follow and make recommendations along the way. Prognosis is currently guarded. Plan dated September 12, 2023. The patient is seen again in room 266. He continues on room air. He is not receiving any fluids other than saline at 20 cc an hour. A permanent hemodialysis catheter will be placed later today. Labs are reviewed. X-rays are reviewed. All medications are reviewed. The patient continues to do poorly with his incentive spirometer. We will continue to follow make recommendations. Prognosis is guarded. Plan dated September 13, 2023. The patient apparently refused his hemodialysis catheter yesterday. The patient did have hemodialysis yesterday, and 2 L of fluid was removed. The patient is c urrently getting saline at 20 cc an hour. The patient is currently on room air. Labs, x-rays, and medications are reviewed. We will continue to follow, and make recommendations along the way. Prognosis is guarded. The patient has not been particularly motivated. He does poorly on his incentive spirometer. Plan dated September 14, 2023. The patient continues to do only marginally better. He does very poorly on his incentive spirometer. He did have hemodialysis yesterday. Dr. Weller was going to place a permanent hemodialysis catheter, but it never happened. Labs, x- rays, and medications are reviewed. 1 L of fluid was removed yesterday, during hemodialysis session. We will continue to follow the patient, and make recommendations. We do encourage him to use his incentive spirometer. Time with Patient: Less than 30
[2023-09-14 11:55] LABS: Glucose,Whole Blood 331 mg/dL (70-110)
[2023-09-14 12:59] LABS: Appearance,Urine Turbid (Clear); Bacteria,Urine Few /hpf; Bilirubin,Urine Negative (Negative); Blood,Urine Moderate (Negative); Color,Urine Light Red; Glucose,Urine (UA) 1+ (Negative); Ketones,Urine Negative (Negative); Leukocyte Esterase,Urine Large (Negative); Nitrite,Urine Negative (Negative); PH, Urine 5.5 (5.0-8.0); Protein,Urine 3+ (Negative); RBC,Urine 69 /hpf (0-5); Squamous Epithelial Cell,Urine 3 /hpf (0-4); Urobilinogen,Urine <2.0 mg/dL (<2.0); WBC,Urine >182 /hpf (0-5)
--- NOTE | 2023-09-14 13:18 | P.PN ---
Subjective Progress Note Date: 09/14/23 Patient is seen for follow-up for acute kidney injury, oliguric hemodynamic ATN. Status post coronary artery bypass surgery on 09/02/2023. Started on hemodialysis on 09/09/2023 for severe progressive hemodynamic ATN. Patient remains oliguric. Seen while on HD today tolerating well. Urine output continues to increase. Patient is awake, comfortable. No acute distress Examination of the heart S1 and S2 Examination of the lungs decreased breath sounds at the bases Abdomen is soft Examination of lower extremities shows 1+ edema with significant scrotal edema Objective - Vital Signs Vital signs: Vital Signs Temp 97.6 F 09/14/23 08:00 Pulse 126 H 09/14/23 10:00 Resp 16 09/14/23 10:00 BP 106/56 09/14/23 10:00 Pulse Ox 97 09/14/23 08:00 FiO2 40 09/02/23 20:33 Intake & Output 09/13/23 09/14/23 09/14/23 18:59 06:59 18:59 Intake Total 500 750 Output Total 1440 0 0 Balance -940 0 750 Intake: IV 100 50 Sodium Chloride 0.9% 1, 100 000 ml @ 20 mls/hr IV . Q24H [facility] Rx#:[id number] ceFAZolin 1,000 mg In 50 Sodium Chloride 0.9% 50 ml @ 100 mls/hr IVPB Q8HR [facility] Rx#:[id number] Oral 700 Hemodialysis 400 Output: Urine 40 0 0 Hemodialysis 1400 ABP, PAP, CO, CI - Last Documented Arterial Blood Pressure 83/58 Pulmonary Artery Pressure 45/17 Cardiac Output 3.5 Cardiac Index 2 - Labs CBC & Chem 7: 09/14/23 04:04 09/14/23 04:04 Labs: Abnormal Lab Results - Last 24 Hours (Table) 09/13/23 09/13/23 09/13/23 Range/Units 07:45 11:48 12:55 WBC (3.8-10.6) k/uL RBC (4.30-5.90) m/uL Hgb (13.0-17.5) gm/dL Hct (39.0-53.0) % MCV (80.0-100.0) fL RDW (11.5-15.5) % Plt Count (150-450) k/uL Sodium (137-145) mmol/L Chloride (98-107) mmol/L Carbon Dioxide (22-30) mmol/L BUN (9-20) mg/dL Creatinine (0.66-1.25) mg/dL Glucose (74-99) mg/dL POC Glucose (mg/dL) 137 H 128 H (70-110) mg/dL Calcium (8.4-10.2) mg/dL Phosphorus (2.5-4.5) mg/dL Total Bilirubin (0.2-1.3) mg/dL ALT (4-49) U/L Alkaline Phosphatase (38-126) U/L Total Protein (6.3-8.2) g/dL Albumin (3.5-5.0) g/dL Urine Protein 2+ H (Negative) Urine Glucose (UA) 1+ H (Negative) Urine Blood Large H (Negative) Ur Leukocyte Esterase Large H (Negative) Urine RBC >182 H (0-5) /hpf Urine WBC >182 H (0-5) /hpf Urine Bacteria Few H (None) /hpf Hyaline Casts 28 H (0-2) /lpf Urine Mucus Rare H (None) /hpf 09/13/23 09/13/23 09/14/23 Range/Units 19:59 21:52 04:04 WBC 27.2 H (3.8-10.6) k/uL RBC 3.09 L (4.30-5.90) m/uL Hgb 9.7 L (13.0-17.5) gm/dL Hct 31.0 L (39.0-53.0) % MCV 100.5 H (80.0-100.0) fL RDW 17.4 H (11.5-15.5) % Plt Count 69 L (150-450) k/uL Sodium (137-145) mmol/L Chloride (98-107) mmol/L Carbon Dioxide (22-30) mmol/L BUN (9-20) mg/dL Creatinine (0.66-1.25) mg/dL Glucose (74-99) mg/dL POC Glucose (mg/dL) 218 H 199 H (70-110) mg/dL Calcium (8.4-10.2) mg/dL Phosphorus (2.5-4.5) mg/dL Total Bilirubin (0.2-1.3) mg/dL ALT (4-49) U/L Alkaline Phosphatase (38-126) U/L Total Protein (6.3-8.2) g/dL Albumin (3.5-5.0) g/dL Urine Protein (Negative) Urine Glucose (UA) (Negative) Urine Blood (Negative) Ur Leukocyte Esterase (Negative) Urine RBC (0-5) /hpf Urine WBC (0-5) /hpf Urine Bacteria (None) /hpf Hyaline Casts (0-2) /lpf Urine Mucus (None) /hpf 09/14/23 09/14/23 Range/Units 04:04 06:51 WBC (3.8-10.6) k/uL RBC (4.30-5.90) m/uL Hgb (13.0-17.5) gm/dL Hct (39.0-53.0) % MCV (80.0-100.0) fL RDW (11.5-15.5) % Plt Count (150-450) k/uL Sodium 129 L (137-145) mmol/L Chloride 95 L (98-107) mmol/L Carbon Dioxide 21 L (22-30) mmol/L BUN 40 H (9-20) mg/dL Creatinine 2.83 H (0.66-1.25) mg/dL Glucose 176 H (74-99) mg/dL POC Glucose (mg/dL) 207 H (70-110) mg/dL Calcium 7.7 L (8.4-10.2) mg/dL Phosphorus 4.7 H (2.5-4.5) mg/dL Total Bilirubin 2.2 H (0.2-1.3) mg/dL ALT 54 H (4-49) U/L Alkaline Phosphatase 221 H (38-126) U/L Total Protein 5.5 L (6.3-8.2) g/dL Albumin 2.9 L (3.5-5.0) g/dL Urine Protein (Negative) Urine Glucose (UA) (Negative) Urine Blood (Negative) Ur Leukocyte Esterase (Negative) Urine RBC (0-5) /hpf Urine WBC (0-5) /hpf Urine Bacteria (None) /hpf Hyaline Casts (0-2) /lpf Urine Mucus (None) /hpf Assessment and Plan Plan: 1. Acute kidney injury secondary to ATN secondary to hypotension/cardiogenic shock. Baseline creatinine near 1. Oliguric. UA fairly benign. Started renal replacement therapy on 09/09/2023. 2. Coronary artery disease status post CABG x 3 September 02, 2023. 3. Shock maintained on Levophed, vasopressin, dopamine and dobutamine. 4. Cardiomyopathy with reduced ejection fraction. EF 25-20% 5. Metabolic acidosis secondary to acute kidney injury. improved 6. Cardiomyopathy with EF 20-25% Plan: Hemodialysis planned again today. Can hold on Saturday and monitor for renal recovery. Encourage increased oral intake
--- NOTE | 2023-09-14 13:18 | P.PN ---
Subjective Progress Note Date: 09/14/23 63-year-old gentleman with past medical history significant for coronary artery disease, chronic congestive heart failure with ejection fraction of 30%, hypertension hyperlipidemia diabetes mellitus obesity bipolar disorder cardiomyopathy developmental delay history of nicotine dependence who has been admitted with shortness of breath and lower extremity edema. Patient underwent cardiac catheterization right heart catheterization and intra-aortic balloon pump. * Patient has comorbidities including diabetes mellitus type 2, peripheral arterial disease, bipolar disorder, history of anxiety. * Patient to undergo myocardial revascularization 09/02/2023. * 09/03/23 : Patient admitted to medical ICU. Patient was successfully extubated postprocedure. S/p intra-aortic balloon pump which remains in place through right femoral access. Patient remains on norepinephrine drip, Primacor drip, vasopressin. Bilateral chest tubes remained in place. Followed up by medical ICU and cardiac surgery. Follow-up blood work obtained including WBC 15.2 hemoglobin 9.2 platelet count of 98, serum chemistry sodium 141 potassium 4.7 carbon dioxide 24 BUN 26 creatinine 1.1 blood glucose 118-1 33 * 09/04/23: Patient seen and evaluated in medical ICU room 266, patient continues to remain on Levophed, vasopressin and pressor support. Blood work reviewed WBC 17.7 hemoglobin 9.4 platelet 117. Serum chemistry showed sodium 137 potassium 4.9 carbon dioxide 18 BUN 34 creatinine 1.52 blood glucose 123. Overnight patient was refusing to participate with care, patient counseled by cardiac surgery team as well. Brother at bedside, patient does follow commands, care plan discussed with nursing staff * 09/05/23: Patient seen and evaluated bedside, vitals reviewed blood pressure running in the 90s overnight. Patient remains on 2 L of oxygen. Blood work reviewed CBC shows WBC 14.3 hemoglobin 9.3 platelet 105 serum chemistry sodium 137 potassium 5.2 carbon dioxide 16 BUN 44 creatinine 1.99 total bilirubin 1.3 AST 464 ALT 128 will need to be monitored, p.atient remains lethargic however easily arousable 09/06/2023 -- Patient is seen and evaluated in ICU at bedside Vital signs reviewed and temperature of 97.9, pulse 90, respiration 14 and blood pressure of 110/40 Lab review shows WBC 14.2, hemoglobin of 8.7 and platelet count of 109, sodium 136, potassium 4.8, BUNs/creatinine of 54/2.91; concern about worsening renal function likely related to cardiorenal syndrome; dopamine has been discontinued Chest x-ray reveals atelectasis and bibasilar pleural effusion --Patient remains on pressors and inotropic agents; cardiac index and cardiac output is being monitored closely -Patient remains on Plavix, aspirin, statins and beta-blockers -- Recommended to increase activity 09/07/2023 ---patient is basically about the same, he is now postoperative day #5, sitting at the bedside chair, patient is not motivated what bit remains on multiple inotropes and pressors, patient is receiving dopamine at 2.5 mcg/kg/min dobutamine at 5 mcg/kg/min norepinephrine at 0.06 mcg/kg/min vasopressin at 0.03 units/min and he is also on insulin at 3.5 units/h today he is off milrinone. Chest x-ray showed mostly atelectasis at the bases. No clear-cut evidence of pulmonary edema. Patient is maintained on 2 L nasal cannula, again the patient is doing extremely poorly with incentive spirometry and does not seem to be mot ivated at all. Renal functioning seems to be getting worse, his BUN is 63 creatinine 3.54, at this rate I am quite concerned with the patient may end up requiring hemodialysis. This is being addressed by nephrology on the case. Liver enzymes are improving Continue pressors and inotropes continue to monitor cardiac index and cardiac output Continue dopamine, continue dobutamine, patient is off milrinone today. However he is still requiring norepinephrine and vasopressin Continue Plavix beta-blockers aspirin and statin Titrate pressors and inotropes as tolerated 09/08/2023 --patient is seen and evaluated with family at bedside; now postoperative day #6. -- Patient is still requiring dobutamine at 0.5 mcg/kg/min, still requiring vasopressin at 0.02 units/min, his norepinephrine is presently on hold, and milrinone was discontinued. Still on insulin at 3 units/h. -- chest x-ray is showing bibasilar atelectasis and small left pleural effusion with a small right pleural effusion -- WBC count is 6 hemoglobin 8.7 basic metabolic profile is normal except for b icarb of 15 and again worsening renal profile BUN is up to 71 creatinine 4.40 -Renal function continues to worsen; nephrology on board and planning to continue with IV Lasix and oral sodium bicarbonate; plan for possible hemodialysis in a.m. if urine output does not improve 09/09/2023 Patient is awake alert but looks very tired and lethargic lying in chair. No significant chest pain. Patient has average appetite No significant dyspnea but looks very weak Patient required pressors Patient planned and considered for hemodialysis given his worsening renal function today 5.2 compared with 1.5 upon admission He has severe cardiomyopathy with ejection fraction 20 to 25% and currently on aspirin and Plavix and amiodarone drip. Also he required pressors as above, cardiology following closely. 09/10/2023 Patient still lethargic still sitting in chair No much difference clinically from yesterday A plan to undergo hemodialysis today for first-line, hemodialysis catheter in place. Patient is oliguric. He is currently getting dobutamine and insulin drip 3 units/h He is also on aspirin and Plavix and metoprolol 09/11/2023 Patient remains very lethargic No new complaint He remains on dobutamine drip at 2.5 He is getting the third round of hemodialysis today His insulin drip switched to sliding scale and Levemir Continue with dual antiplatelet therapy Labs showing stable hemoglobin 9.5. Platelet 1 28,000 09/12/2023 Patient looks more awake and alert today, he still generally weak sitting up in chair. No chest pain no dyspnea, no other specific complaint he Is getting hemodialysis. Creatinine down to 2.9. Hemoglobin stable, platelet count stable. He was started on Levemir 14 and twice daily yesterday, his sugar was on the low side this morning therefore we are going to lower the dose to Levemir 15 units at bedtime with close monitoring. Started also on sodium bicarb 09/13. Patient seen and examined. Vital signs this morning WNL at 76, heart rate 115, respiratory rate. 14, blood pressure 118/71.Lab work done showed WBC 27.2, hemoglobin 9.7, platelet count 69, sodium 128, potassium 4.1, BUN 40, creatinine 2.83. Patient getting dialysis today. Currently not requiring any oxygen. REVIEW OF SYSTEMS: CONSTITUTIONAL: No fever, no malaise,. CARDIOVASCULAR: No chest pain, no palpitations, no syncope. PULMONARY: No shortness of breath, no cough, GASTROINTESTINAL: No diarrhea, no nausea, no vomiting, no abdominal pain. NEUROLOGICAL: No headaches, no weakness, PHYSICAL EXAMINATION: GENERAL: The patient is alert, not in any acute distress. Well developed, well nourished. HEENT: Pupils are round and equally reacting to light. EOMI. No scleral icterus. No conjunctival pallor. Normocephalic, atraumatic. No pharyngeal erythema. No thyromegaly. CARDIOVASCULAR: S1 and S2 present. No murmurs, rubs, or gallops. PULMONARY: Chest is clear to auscultation, no wheezing or crackles. ABDOMEN: Soft, nontender, nondistended, normoactive bowel sounds. No palpable organomegaly. MUSCULOSKELETAL: No joint swelling or deformity. EXTREMITIES: No cyanosis, clubbing, or pedal edema. NEUROLOGICAL: Gross neurological examination did not reveal any focal deficits. SKIN: No rashes. Assessment and plan Acute on chronic systolic ejection of congestive heart failure with ejection fraction worsened 35% down to 25% S/P three-vessel bypass grafting. Postoperative hypoxic respiratory failure Cardiogenic shock Acute kidney injury requiring hemodialysis Peripheral vascular disease Hypertension Hyperlipidemia Diabetes mellitus Bipolar disorder Monitor vital signs Monitor CBC Monitor CMP Continue telemetry monitoring Encourage use of incentive spirometer Status post coronary artery bypass surgery on 09/02/2023 started on hemodialysis on 09/09/2023 for severe progressive ATN Continue aspirin, Plavix Monitor blood sugar levels, continue current regimen of insulin [id number] units at nighttime and sliding scale insulin Continue breathing treatments Patient scheduled for permacatheter placement on Saturday Nephrology following Critical care following CT surgery following Labs and medication were reviewed.. Continue same treatment. Continue with symptomatic treatment. Resume home medication. Monitor labs and vitals. DVT and GI prophylaxis. Further recommendations as per clinical course of the patient Dictation was produced using [employer] dictation software. please excuse any grammatical, word or spelling errors. Objective - Vital Signs Vital signs: Vital Signs Temp 97.6 F 09/14/23 08:00 Pulse 70 09/14/23 08:20 Resp 18 09/14/23 08:20 BP 118/71 09/14/23 08:00 Pulse Ox 97 09/14/23 08:00 FiO2 40 09/02/23 20:33 Intake & Output 09/13/23 09/14/23 09/14/23 18:59 06:59 18:59 Intake Total 500 350 Output Total 1440 0 0 Balance -940 0 350 Intake: IV 100 Sodium Chloride 0.9% 1, 100 000 ml @ 20 mls/hr IV . Q24H [facility] Rx#:[id number] Oral 350 Hemodialysis 400 Output: Urine 40 0 0 Hemodialysis 1400 ABP, PAP, CO, CI - Last Documented Arterial Blood Pressure 83/58 Pulmonary Artery Pressure 45/17 Cardiac Output 3.5 Cardiac Index 2 - Labs CBC & Chem 7: 09/14/23 04:04 09/14/23 04:04 Labs: Abnormal Lab Results - Last 24 Hours (Table) 09/13/23 09/13/23 09/13/23 Range/Units 07:45 11:48 12:55 WBC (3.8-10.6) k/uL RBC (4.30-5.90) m/uL Hgb (13.0-17.5) gm/dL Hct (39.0-53.0) % MCV (80.0-100.0) fL RDW (11.5-15.5) % Plt Count (150-450) k/uL Sodium (137-145) mmol/L Chloride (98-107) mmol/L Carbon Dioxide (22-30) mmol/L BUN (9-20) mg/dL Creatinine (0.66-1.25) mg/dL Glucose (74-99) mg/dL POC Glucose (mg/dL) 137 H 128 H (70-110) mg/dL Calcium (8.4-10.2) mg/dL Phosphorus (2.5-4.5) mg/dL Total Bilirubin (0.2-1.3) mg/dL ALT (4-49) U/L Alkaline Phosphatase (38-126) U/L Total Protein (6.3-8.2) g/dL Albumin (3.5-5.0) g/dL Urine Protein 2+ H (Negative) Urine Glucose (UA) 1+ H (Negative) Urine Blood Large H (Negative) Ur Leukocyte Esterase Large H (Negative) Urine RBC >182 H (0-5) /hpf Urine WBC >182 H (0-5) /hpf Urine Bacteria Few H (None) /hpf Hyaline Casts 28 H (0-2) /lpf Urine Mucus Rare H (None) /hpf 09/13/23 09/13/23 09/14/23 Range/Units 19:59 21:52 04:04 WBC 27.2 H (3.8-10.6) k/uL RBC 3.09 L (4.30-5.90) m/uL Hgb 9.7 L (13.0-17.5) gm/dL Hct 31.0 L (39.0-53.0) % MCV 100.5 H (80.0-100.0) fL RDW 17.4 H (11.5-15.5) % Plt Count 69 L (150-450) k/uL Sodium (137-145) mmol/L Chloride (98-107) mmol/L Carbon Dioxide (22-30) mmol/L BUN (9-20) mg/dL Creatinine (0.66-1.25) mg/dL Glucose (74-99) mg/dL POC Glucose (mg/dL) 218 H 199 H (70-110) mg/dL Calcium (8.4-10.2) mg/dL Phosphorus (2.5-4.5) mg/dL Total Bilirubin (0.2-1.3) mg/dL ALT (4-49) U/L Alkaline Phosphatase (38-126) U/L Total Protein (6.3-8.2) g/dL Albumin (3.5-5.0) g/dL Urine Protein (Negative) Urine Glucose (UA) (Negative) Urine Blood (Negative) Ur Leukocyte Esterase (Negative) Urine RBC (0-5) /hpf Urine WBC (0-5) /hpf Urine Bacteria (None) /hpf Hyaline Casts (0-2) /lpf Urine Mucus (None) /hpf 09/14/23 09/14/23 Range/Units 04:04 06:51 WBC (3.8-10.6) k/uL RBC (4.30-5.90) m/uL Hgb (13.0-17.5) gm/dL Hct (39.0-53.0) % MCV (80.0-100.0) fL RDW (11.5-15.5) % Plt Count (150-450) k/uL Sodium 129 L (137-145) mmol/L Chloride 95 L (98-107) mmol/L Carbon Dioxide 21 L (22-30) mmol/L BUN 40 H (9-20) mg/dL Creatinine 2.83 H (0.66-1.25) mg/dL Glucose 176 H (74-99) mg/dL POC Glucose (mg/dL) 207 H (70-110) mg/dL Calcium 7.7 L (8.4-10.2) mg/dL Phosphorus 4.7 H (2.5-4.5) mg/dL Total Bilirubin 2.2 H (0.2-1.3) mg/dL ALT 54 H (4-49) U/L Alkaline Phosphatase 221 H (38-126) U/L Total Protein 5.5 L (6.3-8.2) g/dL Albumin 2.9 L (3.5-5.0) g/dL Urine Protein (Negative) Urine Glucose (UA) (Negative) Urine Blood (Negative) Ur Leukocyte Esterase (Negative) Urine RBC (0-5) /hpf Urine WBC (0-5) /hpf Urine Bacteria (None) /hpf Hyaline Casts (0-2) /lpf Urine Mucus (None) /hpf
--- NOTE | 2023-09-14 15:21 | PN ---
PROGRESS NOTE SUBJECTIVE: This is a 63-year-old gentleman with CAD status post CABG and renal failure, on hemodialysis. His overall situation remains unchanged. OBJECTIVE: VITAL SIGNS: Heart rate is 80 beats per minute, blood pressure is 106/50, and respiratory rate 18. CHEST: Reveals good air entry bilaterally. HEART: Reveals first and second heart sounds. No gallop. EXTREMITIES: Reveal bilateral pitting edema. LABORATORY DATA: BUN of 40, creatinine is 2.8, and hemoglobin is 9.7. CURRENT MEDICATIONS: Include: 1. Aspirin. 2. Plavix. 3. Midodrine. ASSESSMENT: 1. Coronary artery disease, status post CABG. 2. Renal failure. PLAN: The patient will continue current supportive care. Prognosis guarded. MMODL / IJN: [id number] /
[2023-09-14 17:23] LABS: Glucose,Whole Blood 144 mg/dL (70-110)
[2023-09-14 20:06] LABS: Glucose,Whole Blood 204 mg/dL (70-110)
[2023-09-15 05:17] LABS: ALT 43 U/L (4-49); AST 38 U/L (17-59); African American GFR (CKD) 30 (>60 ml/min/1.73 sqM); Albumin 2.7 g/dL (3.5-5.0); Alkaline Phosphatase 204 U/L (38-126); Anion Gap 8 mmol/L; Blood Urea Nitrogen 37 mg/dL (9-20); Calcium 7.6 mg/dL (8.4-10.2); Carbon Dioxide 25 mmol/L (22-30); Chloride 97 mmol/L (98-107); Glucose 132 mg/dL (74-99); Non-African American GFR(CKD) 26 (>60 ml/min/1.73 sqM); Potassium 3.7 mmol/L (3.5-5.1); Sodium 130 mmol/L (137-145); Total Bilirubin 1.5 mg/dL (0.2-1.3); Total Protein 5.3 g/dL (6.3-8.2)
[2023-09-15 05:20] LABS: Anisocytosis Slight; Basophils # (A) 0.1 k/uL (0-0.2); Basophils % (A) 1 %; Eosinophils # (A) 0.5 k/uL (0-0.7); Eosinophils % (A) 2 %; HCT 32.7 % (39.0-53.0); Hypochromasia Marked; Lymphocytes # (A) 1.5 k/uL (1.0-4.8); Lymphocytes % (A) 7 %; MCH 32.2 pg (25.0-35.0); MCHC 30.5 g/dL (31.0-37.0); Macrocytosis Moderate; Mean Platelet Volume 10.2; Monocytes # (A) 0.9 k/uL (0-1.0); Monocytes % (A) 4 %; Neutrophils # (A) 18.3 k/uL (1.3-7.7); Neutrophils % (A) 84 %; RBC 3.09 m/uL (4.30-5.90); RDW 17.5 % (11.5-15.5); WBC 21.9 k/uL (3.8-10.6)
[2023-09-15 05:22] LABS: MCV 105.7 fL (80.0-100.0); Platelet Count 73 k/uL (150-450)
[2023-09-15 06:47] LABS: Glucose,Whole Blood 128 mg/dL (70-110)
--- NOTE | 2023-09-15 07:50 | XR ---
EXAMINATION TYPE: XR chest 1V portable DATE OF EXAM: 09/15/2023 HISTORY: Post op CABG COMPARISON: 09/14/2023 TECHNIQUE: Single view of the chest is submitted. FINDINGS: Demonstrated are scattered senescent parenchymal change. There is no evidence for focal infiltrate. Status post CABG with persistent pulmonary venous congestion with scattered infiltrates and pleural e ffusions. Overall stable chest. Hilar and mediastinal structures are within normal limits. Degenerative changes are seen of the dorsal spine. IMPRESSION: 1. Status post CABG with persistent pulmonary venous congestion with scattered infiltrates and pleur al effusions. Overall stable chest.
--- NOTE | 2023-09-15 09:04 | P.PN ---
Subjective Progress Note Date: 09/15/23 Principal diagnosis: Triple-vessel coronary artery disease with left main disease. Past medical history significant for hypertension, hyperlipidemia, diabetes mellitus, chronic systolic heart failure with reduced ejection fraction/ischemic cardiomyopathy, bipolar disorder, obesity, peripheral vascular disease, developmental delay, previous tobacco dependence, noncompliance POD #14 right heart catheterization, ultrasound guided access, placement of intra-aortic balloon pump from right femoral access performed by Dr. Monreal. POD #13 on pump coronary artery bypass grafting x 3, left internal thoracic artery (in-situ) sequential to diagonal and left anterior descending coronary artery, right greater saphenous vein from aorta to obtuse marginal artery #1, left atrial appendage ligation with #35mm AtriClip, endoscopic bilateral greater saphenous vein harvest, graft flow measurements using the [employer] SOLAR flow meter system, trans-esophageal echo Postoperative acute blood loss anemia and thrombocytopenia, expected given hemodilution and cardiopulmonary bypass LEONARDO, status post placement of temp dialysis cath Elevated transaminases, likely due to hypoperfusion, trending down Cardiogenic shock, resolved The patient was seen and examined in follow-up today September 15, 2023 at his bedside in the intensive care unit. He is currently sitting up to the bedside chair, is awake, alert, oriented x 3 and is in no acute apparent distress. He denies any complaints of pain or shortness of breath at this time. He is tolerating his breakfast. Oxygen saturations are 95% on room air and he is achieving 500 mL on his incentive spirometry with much encouragement. Bedside telemetry showing normal sinus rhythm heart rate 79 bpm. He remains hemodynamically stable and is currently on no inotropic or pressor support. Bladder scan was completed yesterday which showed greater than 300 mL of urine, straight cath was performed with 50 mL of return. Urology was consulted and Hobson catheter is currently in place for urine retention. Hemodialysis was completed yesterday with 2.4 L of ultrafiltration completed. The patient continues to complain of some generalized weakness. Chest x-ray and laboratory results were reviewed. Objective - Vital Signs Vital signs: Vital Signs Temp 98.2 F 09/15/23 08:00 Pulse 79 09/15/23 08:00 Resp 17 09/15/23 08:00 BP 110/63 09/15/23 08:00 Pulse Ox 95 09/15/23 08:00 FiO2 40 03/25/24 20:33 Intake & Output 09/14/23 09/15/23 09/15/23 18:59 06:59 18:59 Intake Total 1600 240 Output Total 2450 30 0 Balance -850 210 0 Weight 89.8 kg Intake: IV 100 0 ceFAZolin 1,000 mg In 50 Sodium Chloride 0.9% 50 ml @ 100 mls/hr IVPB Q8HR ZAID Rx#:[id number] cefTRIAXone 2 gm In 50 0 Sodium Chloride 0.9% 50 ml @ 100 mls/hr IVPB Q24HR ZAID Rx#:[id number] Oral 1100 240 Hemodialysis 400 Output: Urine 50 30 0 Hemodialysis 2400 Other: Voiding Method Indwelling Catheter Indwelling Catheter Indwelling Catheter ABP, PAP, CO, CI - Last Documented Arterial Blood Pressure 83/58 Pulmonary Artery Pressure 45/17 Cardiac Output 3.5 Cardiac Index 2 - Exam CONSTITUTIONAL: Sitting up to the bedside chair in the intensive care unit, appears comfortable, cooperative, no apparent acute distress. HEENT: Neck is supple, no JVD, no lymphadenopathy. RESPIRATORY: Lungs sounds essentially clear throughout, diminished to his bilateral bases. Respirations are symmetrical and nonlabored. Currently on room air with oxygen saturations 95%. Able to achieve 500 mL on his incentive spi rometry with encouragement and instruction. Weak cough. CARDIOVASCULAR: Regular rhythm and rate. S1 and S2 present, negative for S3, gallop or murmur. Bedside telemetry showing normal sinus rhythm heart rate 79 bpm. Sternum is stable. Palpable peripheral pulses bilaterally, +1 edema generalized. No calf pain or tenderness noted. Heart hugger in place with patient demonstrating appropriate use with much encouragement. Knee-high VARUN hose and sequential compression devices in place to his bilateral lower extremities. GASTROINTESTINAL: Abdomen soft, nontender, nondistended. Active bowel sounds present 4 quadrants. Tolerating minimal diet with encouragement and assistance. No guarding or rigidity. Bowel movement on September 10, 2023 GENITOURINARY: Hemodialysis yesterday with 2400 mL of ultrafiltration completed. Hobson catheter in place for urine retention, urine output in the la st 8 hours is 30 mL. INTEGUMENTARY: Skin is warm and dry with no evidence of clubbing or cyanosis. Midline sternal incision clean dry and well approximated, covered with dry intact dressing. Bilateral lower extremity EVH sites well approximated without redness or drainage. Erythema to his coccyx, dressing clean, dry and intact. NEUROLOGIC: Cranial nerves II through XII intact. MUSKULOSKELETAL: Able to move all extremities, strength equal bilaterally, generalized weakness. PSYCHIATRIC: Alert and oriented to person place and disoriented to time, flat affect. - Allied health notes Allied health notes reviewed: nursing - Labs CBC & Chem 7: 09/15/23 04:38 09/15/23 04:38 Labs: Abnormal Lab Results - Last 24 Hours (Table) 09/14/23 09/14/23 09/14/23 Range/Units 11:40 11:53 17:22 WBC (3.8-10.6) k/uL RBC (4.30-5.90) m/uL Hgb (13.0-17.5) gm/dL Hct (39.0-53.0) % MCV (80.0-100.0) fL MCHC (31.0-37.0) g/dL RDW (11.5-15.5) % Plt Count (150-450) k/uL Neutrophils # (1.3-7.7) k/uL Sodium (137-145) mmol/L Chloride (98-107) mmol/L BUN (9-20) mg/dL Creatinine (0.66-1.25) mg/dL Glucose (74-99) mg/dL POC Glucose (mg/dL) 331 H 144 H (70-110) mg/dL Calcium (8.4-10.2) mg/dL Total Bilirubin (0.2-1.3) mg/dL Alkaline Phosphatase (38-126) U/L Total Protein (6.3-8.2) g/dL Albumin (3.5-5.0) g/dL Urine Protein 3+ H (Negative) Urine Glucose (UA) 1+ H (Negative) Urine Blood Moderate H (Negative) Ur Leukocyte Esterase Large H (Negative) Urine RBC 69 H (0-5) /hpf Urine WBC >182 H (0-5) /hpf Urine WBC Clumps Many H (None) /hpf Urine Bacteria Few H (None) /hpf 09/14/23 09/15/23 09/15/23 Range/Units 20:05 04:38 04:38 WBC 21.9 H (3.8-10.6) k/uL RBC 3.09 L (4.30-5.90) m/uL Hgb 10.0 L (13.0-17.5) gm/dL Hct 32.7 L (39.0-53.0) % MCV 105.7 H D (80.0-100.0) fL MCHC 30.5 L (31.0-37.0) g/dL RDW 17.5 H (11.5-15.5) % Plt Count 73 L (150-450) k/uL Neutrophils # 18.3 H (1.3-7.7) k/uL Sodium 130 L (137-145) mmol/L Chloride 97 L (98-107) mmol/L BUN 37 H (9-20) mg/dL Creatinine 2.58 H (0.66-1.25) mg/dL Glucose 132 H (74-99) mg/dL POC Glucose (mg/dL) 204 H (70-110) mg/dL Calcium 7.6 L (8.4-10.2) mg/dL Total Bilirubin 1.5 H (0.2-1.3) mg/dL Alkaline Phosphatase 204 H (38-126) U/L Total Protein 5.3 L (6.3-8.2) g/dL Albumin 2.7 L (3.5-5.0) g/dL Urine Protein (Negative) Urine Glucose (UA) (Negative) Urine Blood (Negative) Ur Leukocyte Esterase (Negative) Urine RBC (0-5) /hpf Urine WBC (0-5) /hpf Urine WBC Clumps (None) /hpf Urine Bacteria (None) /hpf 09/15/23 Range/Units 06:45 WBC (3.8-10.6) k/uL RBC (4.30-5.90) m/uL Hgb (13.0-17.5) gm/dL Hct (39.0-53.0) % MCV (80.0-100.0) fL MCHC (31.0-37.0) g/dL RDW (11.5-15.5) % Plt Count (150-450) k/uL Neutrophils # (1.3-7.7) k/uL Sodium (137-145) mmol/L Chloride (98-107) mmol/L BUN (9-20) mg/dL Creatinine (0.66-1.25) mg/dL Glucose (74-99) mg/dL POC Glucose (mg/dL) 128 H (70-110) mg/dL Calcium (8.4-10.2) mg/dL Total Bilirubin (0.2-1.3) mg/dL Alkaline Phosphatase (38-126) U/L Total Protein (6.3-8.2) g/dL Albumin (3.5-5.0) g/dL Urine Protein (Negative) Urine Glucose (UA) (Negative) Urine Blood (Negative) Ur Leukocyte Esterase (Negative) Urine RBC (0-5) /hpf Urine WBC (0-5) /hpf Urine WBC Clumps (None) /hpf Urine Bacteria (None) /hpf Microbiology - Last 24 Hours (Table) 09/13/23 07:45 Urine Culture - Preliminary Urine,Voided Gram Neg Bacilli - Imaging and Cardiology Chest x-ray: report reviewed, image reviewed Assessment and Plan Assessment: Multivessel coronary artery disease with left main disease, status post three- vessel on pump coronary artery bypass grafting surgery Chronic systolic congestive heart failure with an ejection fraction of 30 to 35% , status post preoperative intra-aortic balloon pump placement Cardiomyopathy Hypertension, currently on midodrine for blood pressure support Hyperlipidemia Diabetes mellitus type 2, with hemoglobin A1c 10.9 in April 2023, preoperative hemoglobin A1c 7.4% on September 01, 2023 Peripheral arterial disease, recent ABIs to right 0.95 and left 0.97 Bilateral pleural effusions on July 16, 2023 CT scan of the chest Obesity with a BMI of 32.7 kg/m Bipolar disorder Developmentally delayed Anxiety Noncompliance with medical therapy Remote history of nicotine dependence quit smoking over 20 years ago, with an FEV1 of 55% of predicted value and a base volume of 1.43 Postoperative acute blood loss anemia and thrombocytopenia, expected Incidental finding of tiny left pneumothorax, not a complication, resolved Acute kidney injury, status post dialysis cath placement Elevated transaminase and cardiogenic shock, likely from hypoperfusion, resolved Plan: Continue aspirin, Plavix, and restart statin as liver enzymes have normalized. Continue to hold metoprolol to tartrate today. Continue midodrine 5 mg p.o. 3 times daily per cardiology management. Encourage use of incentive spirometry 10 times every hour while awake. Bronchodilators per pulmonology. Increase activity, ambulate as tolerated. PT/OT/cardiac rehab following. Will monitor daily labs and chest x-rays. Dialysis per nephrology, dialysis daily, scheduled for permacath Saturday, September 16, 2023. He will be made n.p.o. after midnight. Avoid nephrotoxic agents. Pain control per current medication regimen. Avoid to Toradol. No narcotics. Continue Hobson catheter for another 24 hours, continue to record strict accurate intake and output. Insulin management per internal medicine. Preoperative hemoglobin A1c 7.4%. GI/DVT prophylaxis. Daily weights. Encourage oral intake, supplements ordered. Patient needs continued encouragement to participate in his care. Prognosis remains very guarded. Patient will likely need to be discharged to LTAC due to high level of care, needs extensive rehab, dialysis, daily physician monitoring with daily change in medications and plan based on daily labs. Social work to obtain insurance authorization when patient is ready to be discharged. More recommendations to follow based on patient's clinical course. Time with Patient: Greater than 30
--- NOTE | 2023-09-15 09:13 | US ---
EXAMINATION TYPE: US chest DATE OF EXAM: 09/15/2023 COMPARISON: CXR CLINICAL INDICATION: Male, 63 years old with history of US right chest, pleural effusion; effusion TECHNIQUE: Targeted ultrasound of the posterior lower right hemithorax EXAM MEASUREMENTS: Right Pleural Effusion pocket size: 4.5 cm Right skin surface to fluid distance: 3.4 cm Right side marked for possible thoracentesis outside the dept. Pulmonologists are able to review the images in the patient?s EMR. IMPRESSIONS: As above
[2023-09-15] MEDS: ATORVASTATIN 40 MG TAB PO SCH (09:57)
--- NOTE | 2023-09-15 10:48 | P.PCN ---
Date of Procedure: 09/15/23 Preoperative Diagnosis: Urinary retention Postoperative Diagnosis: Same Procedure(s) Performed: Catheter irrigation Description of Procedure: 60 mL of sterile saline was pushed into the bladder using a Golden syringe, I was able to aspirate 60 mL back with some debris without any difficulty. Patient tolerated procedure well
--- NOTE | 2023-09-15 10:48 | P.GSCN ---
History of Present Illness Consult date: 09/15/23 Reason for Consult: Catheter malfunction, urinary retention History of present illness: This is a 63-year-old male status post CABG on September 01 postop course complicated by acute kidney injury. The patient had a Hobson catheter placed for postvoid residual of 400 mL, following catheter placement only 50 mL was obtained. Upon irrigation the catheter debris was obtained and there was some difficulty irrigating the catheter. Patient denies any voiding dysfunction at baseline. No gross hematuria. At this point he is making minimal amount of urine. He is currently on hemodialysis Review of Systems - Constitutional Denies fever, Denies weight loss - Cardiovascular Denies chest pain, Denies shortness of breath - Respiratory Denies cough, Denies 7 - Gastrointestinal Reports as per HPI Past Medical History Past Medical History: Coronary Artery Disease (CAD), Heart Failure, Diabetes Mellitus, Hyperlipidemia, Hypertension Additional Past Medical History / Comment(s): chronic systolic heart failure,cardiomyapathy,rush cataracts History of Any Multi-Drug Resistant Organisms: None Reported Past Surgical History: Heart Catheterization Additional Past Surgical History / Comment(s): Previous foot and wrist surgery Past Anesthesia/Blood Transfusion Reactions: No Reported Reaction Additional Past Anesthesia/Blood Transfusion Reaction / Comm: no known hx blood transfusion Smoking Status: Former smoker - Past Family History Mother Family Medical History: COPD, Pneumonia Brother(s) Family Medical History: COPD Medications and Allergies Home Medications Medication Instructions Recorded Confirmed Type DULoxetine HCL [Cymbalta] 60 mg PO DAILY 08/28/23 08/28/23 History Empagliflozin [Jardiance] 10 mg PO DAILY 08/28/23 08/28/23 History Furosemide [Lasix] 40 mg PO BID 08/28/23 08/28/23 History Glimepiride [Amaryl] 2 mg PO DAILY 08/28/23 08/28/23 History Losartan [Cozaar] 25 mg PO DAILY 08/28/23 08/28/23 History Metoprolol Succinate (ER) [Toprol 50 mg PO DAILY 08/28/23 08/28/23 History Xl] Rosuvastatin Calcium [Crestor] 40 mg PO DAILY 08/28/23 08/28/23 History Spironolactone [Aldactone] 12.5 mg PO DAILY 08/28/23 08/28/23 History busPIRone HCL 15 mg PO BID 08/28/23 08/28/23 History Allergies Allergy/AdvReac Type Severity Reaction Status Date / Time ibuprofen Allergy Unknown Verified 08/28/23 10:06 Surgical - Exam Vital Signs Temp Pulse Resp BP Pulse Ox 97.5 F L 85 18 117/74 97 09/01/23 09:24 09/01/23 09:24 09/01/23 09:24 09/01/23 09:24 09/01/23 09:24 - General no distress, no pain - Eyes normal ocular movement, no pale - ENT normal nares, normal mucosa - Respiratory normal expansion, normal respiratory effort - Abdomen Abdomen: soft, non tender - Genitourinary Hobson in place with dark yellow urine normal penis with no external lesions - Psychiatric oriented to time, oriented to person, oriented to place Results - Labs 09/15/23 04:38 09/15/23 04:38 Abnormal Lab Results - Last 24 Hours (Table) 09/14/23 09/14/23 09/14/23 Range/Units 11:40 11:53 17:22 WBC (3.8-10.6) k/uL RBC (4.30-5.90) m/uL Hgb (13.0-17.5) gm/dL Hct (39.0-53.0) % MCV (80.0-100.0) fL MCHC (31.0-37.0) g/dL RDW (11.5-15.5) % Plt Count (150-450) k/uL Neutrophils # (1.3-7.7) k/uL Sodium (137-145) mmol/L Chloride (98-107) mmol/L BUN (9-20) mg/dL Creatinine (0.66-1.25) mg/dL Glucose (74-99) mg/dL POC Glucose (mg/dL) 331 H 144 H (70-110) mg/dL Calcium (8.4-10.2) mg/dL Total Bilirubin (0.2-1.3) mg/dL Alkaline Phosphatase (38-126) U/L Total Protein (6.3-8.2) g/dL Albumin (3.5-5.0) g/dL Urine Protein 3+ H (Negative) Urine Glucose (UA) 1+ H (Negative) Urine Blood Moderate H (Negative) Ur Leukocyte Esterase Large H (Negative) Urine RBC 69 H (0-5) /hpf Urine WBC >182 H (0-5) /hpf Urine WBC Clumps Many H (None) /hpf Urine Bacteria Few H (None) /hpf 09/14/23 09/15/23 09/15/23 Range/Units 20:05 04:38 04:38 WBC 21.9 H (3.8-10.6) k/uL RBC 3.09 L (4.30-5.90) m/uL Hgb 10.0 L (13.0-17.5) gm/dL Hct 32.7 L (39.0-53.0) % MCV 105.7 H D (80.0-100.0) fL MCHC 30.5 L (31.0-37.0) g/dL RDW 17.5 H (11.5-15.5) % Plt Count 73 L (150-450) k/uL Neutrophils # 18.3 H (1.3-7.7) k/uL Sodium 130 L (137-145) mmol/L Chloride 97 L (98-107) mmol/L BUN 37 H (9-20) mg/dL Creatinine 2.58 H (0.66-1.25) mg/dL Glucose 132 H (74-99) mg/dL POC Glucose (mg/dL) 204 H (70-110) mg/dL Calcium 7.6 L (8.4-10.2) mg/dL Total Bilirubin 1.5 H (0.2-1.3) mg/dL Alkaline Phosphatase 204 H (38-126) U/L Total Protein 5.3 L (6.3-8.2) g/dL Albumin 2.7 L (3.5-5.0) g/dL Urine Protein (Negative) Urine Glucose (UA) (Negative) Urine Blood (Negative) Ur Leukocyte Esterase (Negative) Urine RBC (0-5) /hpf Urine WBC (0-5) /hpf Urine WBC Clumps (None) /hpf Urine Bacteria (None) /hpf 09/15/23 Range/Units 06:45 WBC (3.8-10.6) k/uL RBC (4.30-5.90) m/uL Hgb (13.0-17.5) gm/dL Hct (39.0-53.0) % MCV (80.0-100.0) fL MCHC (31.0-37.0) g/dL RDW (11.5-15.5) % Plt Count (150-450) k/uL Neutrophils # (1.3-7.7) k/uL Sodium (137-145) mmol/L Chloride (98-107) mmol/L BUN (9-20) mg/dL Creatinine (0.66-1.25) mg/dL Glucose (74-99) mg/dL POC Glucose (mg/dL) 128 H (70-110) mg/dL Calcium (8.4-10.2) mg/dL Total Bilirubin (0.2-1.3) mg/dL Alkaline Phosphatase (38-126) U/L Total Protein (6.3-8.2) g/dL Albumin (3.5-5.0) g/dL Urine Protein (Negative) Urine Glucose (UA) (Negative) Urine Blood (Negative) Ur Leukocyte Esterase (Negative) Urine RBC (0-5) /hpf Urine WBC (0-5) /hpf Urine WBC Clumps (None) /hpf Urine Bacteria (None) /hpf Microbiology - Last 24 Hours (Table) 09/13/23 07:45 Urine Culture - Preliminary Urine,Voided Gram Neg Bacilli Diabetes panel 09/15/23 Range/Units 04:38 Sodium 130 L (137-145) mmol/L Potassium 3.7 (3.5-5.1) mmol/L Chloride 97 L (98-107) mmol/L Carbon Dioxide 25 (22-30) mmol/L BUN 37 H (9-20) mg/dL Creatinine 2.58 H (0.66-1.25) mg/dL Glucose 132 H (74-99) mg/dL Calcium 7.6 L (8.4-10.2) mg/dL AST 38 (17-59) U/L ALT 43 (4-49) U/L Alkaline Phosphatase 204 H (38-126) U/L Total Protein 5.3 L (6.3-8.2) g/dL Albumin 2.7 L (3.5-5.0) g/dL Calcium panel 09/15/23 Range/Units 04:38 Calcium 7.6 L (8.4-10.2) mg/dL Albumin 2.7 L (3.5-5.0) g/dL Pituitary panel 09/15/23 Range/Units 04:38 Sodium 130 L (137-145) mmol/L Potassium 3.7 (3.5-5.1) mmol/L Chloride 97 L (98-107) mmol/L Carbon Dioxide 25 (22-30) mmol/L BUN 37 H (9-20) mg/dL Creatinine 2.58 H (0.66-1.25) mg/dL Glucose 132 H (74-99) mg/dL Calcium 7.6 L (8.4-10.2) mg/dL Adrenal panel 09/15/23 Range/Units 04:38 Sodium 130 L (137-145) mmol/L Potassium 3.7 (3.5-5.1) mmol/L Chloride 97 L (98-107) mmol/L Carbon Dioxide 25 (22-30) mmol/L BUN 37 H (9-20) mg/dL Creatinine 2.58 H (0.66-1.25) mg/dL Glucose 132 H (74-99) mg/dL Calcium 7.6 L (8.4-10.2) mg/dL Total Bilirubin 1.5 H (0.2-1.3) mg/dL AST 38 (17-59) U/L ALT 43 (4-49) U/L Alkaline Phosphatase 204 H (38-126) U/L Total Protein 5.3 L (6.3-8.2) g/dL Albumin 2.7 L (3.5-5.0) g/dL Assessment and Plan Assessment: 63-year-old male with acute kidney injury following CABG currently on hemodialysis. Bladder scan showed 400 mL but catheter only obtained 50 mL. I was able to irrigate the catheter without difficulty this morning there was some debris within the bladder. Bladder scan might be inaccurate secondary to abdominal ascites. At this point the catheter is functioning and draining without any difficulties. Catheter can be irrigated as needed if there is concern for no drainage. Recommend keeping the Hobson catheter in until acute kidney injury resolves. At that time catheter can be removed at primary's team discretion
--- NOTE | 2023-09-15 10:59 | P.PN ---
Subjective Progress Note Date: 09/15/23 Principal diagnosis: Coronary artery disease. 63-year-old male patient, was brought into the intensive care unit after having an antibiotic balloon pump inserted this morning and this was done in preparation for coronary artery bypass surgery. The patient is known to have CAD, chronic CHF with impaired ejection fraction of 30 to 35%. The patient has been hospitalized with [facility] and an earlier cardiac catheterization from April 2023 showed a 70% left main, 70% proximal LAD, 30% circumflex and 70% obtuse marginal 1 and 60% mid RCA. The patient has impaired LV function with an EF around 30 to 35% along with mild to moderate MR, and severe pulm hypertension. The patient is scheduled to undergo coronary artery bypass surgery tomorrow. He is currently on room air oxygen. Free of any chest pain. Hemodynamically stable. Augmented blood pressure is around 80. He has some developmental delay and his other comorbid conditions include diabetes rachel litus type 2, hypertension and hyperlipidemia. Blood work shows a white cell count of 9, hemoglobin 11.8, platelet count of 206, normal coagulation profile, BUN of 27 with a creatinine of 1 and sodium levels at 138. LFTs are normal. His CAT scan of the chest that was done on 07/16/2023 showed cardiomegaly with small right and left-sided pleural effusion. This is consistent with CHF. No mediastinal lymphadenopathy. The patient is seen today September 02, 2023 in follow-up in the intensive care unit following surgery. He had undergone an on pump coronary artery bypass grafting x 3 with a left internal thoracic artery sequential to diagonal and the LAD. Right SVG from the aorta to the obtuse marginal #1. Left atrial appendage ligation and clipping. He remains intubated on the mechanical ventilator and assist-control mode at a rate of 14, tidal volume 500, FiO2 40% and a PEEP of 10. He remains on propofol at 20 mcg/kg/min. Lactated Ringer's at 50 MLS per hour. He is requiring vasopressin at 0.04 units/min. Insulin drip at 1 unit/h. Norepinephrine at 0.05 mcg/kg/min. Milrinone at 0.25 mcg/kg/min intra-aortic balloon pump remains in place. Mediastinal and right and left split chest tubes remain in place. Cardiac output is 4.7. Cardiac index 2.6. Received albumin. Receiving cefazolin. Heparin for DVT prophylaxis. White count 11.7. Hemoglobin 11.5. Platelets 84,000. INR 1.4. Sodium 141. Potassium 3.7. Bicarb 22. BUN 22. Creatinine 0.88. Glucose 101. X-ray no overt failure, pneumothorax or sizable consolidation. ABG's are pending. Patient was today on 09/03/2023, patient was extubated last night uneventfully, patient is now on 2 L nasal cannula, his intra-aortic balloon has been removed today patient remains on pressors and on inotropes. Still requiring norepinephrine at 0.02 mcg/kg/min still on milrinone 0.25 mcg/kg/min and on 0.04 units/min of vasopressin. Cardiac output today is 6.5 cardiac index is 3.7 PA pressure 41/17 CVP of 15. Continues to have mediastinal left and right-sided pleural chest tubes in place, had about 780 mL output since surgery. Chest x- ray is showing mostly postoperative changes labs were all reviewed. WBC count i s 15.2 hemoglobin 9.2. Basic metabolic profile is normal, creatinine 1.10 up from 0.88 yesterday Reevaluated today on 09/04/2023, patient remains in the ICU on 3 L nasal cannula, insulin drip at 1.5 units/h still receiving norepinephrine at 0.08 mcg/kg/min milrinone 0.1 mcg/kg/min vasopressin at 0.03 units/min. Cardiac output is 5.0 cardiac index 2.8, patient remains marginal at best, he is sitting at the bedside chair, does not seem to be in distress, on 3 L nasal cannula. Chest x- ray showed no evidence of pulmonary edema no evidence of pneumonia he does have a small tiny apical left pneumothorax. WBC count is 17.7 hemoglobin 9.4. Basic metabolic profile is normal however his BUN is 34 creatinine is 1.52, apparently the patient does have sustained some acute kidney injury most likely related to hypotension/acute tubular necrosis. Patient was reevaluated today on 09/05/2023, remains in the ICU, still requiring multiple drips, he is on dopamine at 2.5 mcg/kg/min norepinephrine at 0.03 mcg/kg/min vasopressin 0.03 units/min patient is also on insulin at 1.5 units/h. Cardiac index remains low at 1.9 cardiac output is relatively low at 3.4. Pulmonary artery pressure 44/18, CVP is 12. Patient does not seem to be very much motivated, he is achieving less than 500 cc on incentive spirometry. The last patient is on 2 L nasal cannula, refusing to participate in physical activity, refusing incentive spirometry, chest tubes, remain in place, prognosis remains guarded. Chest x-ray showed mostly bibasilar atelectasis, mild interstitial prominence, I doubt left-sided pneumothorax as documented by radiology Reevaluate today on 09/06/2023, patient is basically about the same. Patient is in the ICU, he is on multiple drips including higher dose of inotrope, milrinone 0.25 he is on norepinephrine at 0.02 mcg/kg/min vasopressin at 0.03 units/min dopamine at 2.5 mcg/kg/min dobutamine at 2.5 mcg/kg/min insulin at 2.5 units an hour, urine output is low, patient received albumin cardiac index is 2.9 today cardiac output is 5.9. His renal functioning is getting a bit worse, patient apparently the patient is developing what seems to be a cardiorenal syndrome. Chest x-ray is showing atelectasis and bibasilar pleural effusions. Patient is not motivated, does not seem to be interested in getting motivated. And been doing poorly with incentive spirometry Reevaluate today on 09/06, patient is basically about the same, he is now postoperative day #5, sitting at the bedside chair, patient is not motivated what bit remains on multiple inotropes and pressors, patient is receiving dopamine at 2.5 mcg/kg/min dobutamine at 5 mcg/kg/min norepinephrine at 0.06 mcg/kg/min vasopressin at 0.03 units/min and he is also on insulin at 3.5 units/h today he is off milrinone. Cardiac output is 3.8 cardiac index is 2.1 PA pressure 43/15 CVP is 13. Chest x-ray showed mostly atelectasis at the bases. No clear-cut evidence of pulmonary edema. Patient is maintained on 2 L nasal cannula, again the patient is doing extremely poorly with incentive spirometry and does not seem to be motivated at all. Renal functioning seems to be getting worse, his BUN is 63 creatinine 3.54, at this rate I am quite concerned with the patient may end up requiring hemodialysis. This is being addressed by nephrology on the case. Liver enzymes are improving Today on 09/08/2023, patient is now postoperative day #6. Patient is still requiring dobutamine at 0.5 mcg/kg/min, still requiring vasopressin at 0.02 units/min, his norepinephrine is presently on hold, and milrinone was disconti nued. Still on insulin at 3 units/h. Surprisingly the patient is not developing congestive heart failure, but he is developing worsening renal failure, and he may end up requiring renal replacement therapy. His PA pressure 40/18, his cardiac output is 3.9 cardiac index is 2.2 chest x-ray is showing bibasilar atelectasis and small left pleural effusion with a small right pleural effusion Rubicon-Isabell remains in place WBC count is 6 hemoglobin 8.7 basic metabolic profile is normal except for bicarb of 15 and again worsening renal profile BUN is up to 71 creatinine 4.40 Progress note dated September 09, 2023. This is a 63-year-old male, who was seen today in room 266. The patient is status post three-vessel bypass grafting. He went to the operating room on September 01. He is currently on room air. He is receiving insulin at 2 units an hour. In addition, the patient is getting lactated Ringer's at 30 cc an hour, and dobutamine at 2.5 mcg/kg/min. The patient will have hemodialysis for the f irst time today. Current labs include a white count 6.8, hemoglobin 8.1, hematocrit 24.9, and a platelet count of 105,000. Sodium 135, potassium 4.6, chlorides 107, CO2 12, anion gap 16, BUN 79, creatinine 5.27. Glucose is 141. Calcium 7.6. AST is 300. ALT is 155. Albumin is 2.8. Chest x-ray shows cardiomegaly, with bilateral pleural effusions. Progress note dated September 10, 2023. This is a 63-year-old male who is seen in room 266. Currently, the patient is on room air. The patient is getting insulin drip at 3 units an hour, and continues on dobutamine for cardiovascular support at 5 mcg/kg/min. The patient is still not very motivated, to improve his overall clinical situation. He does poorly on his incentive spirometer. Current laboratory data includes a white count 8.7, hemoglobin 10 hematocrit 30.4, platelet count 119,000. Sodium 135, potassium 4.5, chlorides 104, CO2 14, anion gap 17, BUN 63, and creatinine 4.33. The most recent glucose was 127. AST is 200, ALT 141. Albumin 2.8. Calcium 7.6. The patient's chest x-ray shows some postoperative changes, but has been relatively stable. Progress note dated September 11, 2023. The patient is seen today in room 266. He is currently undergoing hemodialysis. The goal of hemodialysis today is removal of 1 L of fluid. Patient is on room air. The patient is getting saline at 20 cc an hour. The patient continues on dobutamine, for cardiovascular support at 2.5 mcg/kg/min. Current labs include a white count 11.9, hemoglobin 9.5, hematocrit 29.6, and a platelet count of 128,000. Sodium 132, potassium 4.3, chlorides 101, CO2 12, anion gap 19, BUN 53, creatinine 3.70. AST is 102. ALT is 100. Albumin is 2.8. Today's chest x-ray is very stable, and comparable to the x-ray done yesterday. Progress note dated September 12, 2023. The patient is again seen in room 266. Currently, the patient is doing about the same. The patient is on room air. He is getting saline at 20 cc an hour. He will have a permanent hemodialysis catheter placed today. Labs today include a white count 18, hemoglobin 9.8, hematocrit 30.3, and a platelet count of 142,000. Sodium 131, potassium 3.8, chlorides 99, CO2 20, BUN 46, creatinine 2.99. Glucose of 66. Albumin 2.8. The rest of the labs are reviewed. Chest x-ray shows postoperative changes, and persistent right pleural effusion with basilar atelectasis. Progress note dated September 13, 2023. The patient is seen today in room 266. Currently, the patient is on room air. He is getting saline at 20 cc an hour. The patient did have hemodialysis yesterday, and 2 L was removed. This was on September 11. The patient was to have a permanent hemodialysis catheter placed, but he apparently refused it. Current labs include a white count 23.8, hemoglobin 10, hematocrit 31.1, and platelet count 80,000. Sodium 129, potassium 3.9, chlorides 95, CO2 22, BUN 39, creatinine 3.0. Glucose was 126. Calcium 7.8. Total bilirubin 2.3. Albumin is 2.9. No chest x-ray today. Progress note dated September 14, 2023. The patient is again seen today in room 266. Currently he is on room air. The patient is not receiving any IV fluids. He did have hemodialysis yesterday. 1 L was removed, on September 12. He has no specific complaints today. Still doing very poorly on his incentive spirometer. Current labs include a white count 27.2, hemoglobin 9.7, hematocrit 31, and platelet count 69,000. Sodium 129, potassium 4.1, chloride 95, CO2 21, BUN 40, creatinine 2.83. Glucose is 207. Calcium 7.7. Phosphorus 4.7. Magnesium 1.9. Albumin 2.9. Chest x-ray shows some mild fluid overload. The chest x-ray is essentially unchanged. Progress note dated September 15, 2023. The patient is seen today in room 266. Currently he is on room air. He is not requiring any IV fluids. The patient did have hemodialysis yesterday, and 2 L was removed. The patient will have a permanent hemodialysis catheter placed tomorrow. Current labs include a white count 21.9, hemoglobin 10, hematocrit 32.7, and a platelet count of 73,000. Sodium 130, potassium 3.7, chlorides 97, CO2 25, BUN 37, and creatinine 2.58. Albumin is 2.7. Glucose is 128. Urine culture shows evidence of gram-negative bacilli. He was placed on Rocephin yesterday. Chest ultrasound shows a small 4.5 cm pocket on the right. Chest x- ray shows postsurgical changes, and a small right-sided pleural effusion. Objective - Vital Signs Vital signs: Vital Signs Temp 98.2 F 09/15/23 08:00 Pulse 77 09/15/23 10:00 Resp 19 09/15/23 10:00 BP 110/62 09/15/23 10:00 Pulse Ox 97 09/15/23 10:00 FiO2 40 09/02/23 20:33 Intake & Output 04/06/24 04/07/24 04/07/24 18:59 06:59 18:59 Intake Total 1600 240 50 Output Total 2450 30 10 Balance -850 210 40 Weight 89.8 kg Intake: IV 100 0 50 ceFAZolin 1,000 mg In 50 Sodium Chloride 0.9% 50 ml @ 100 mls/hr IVPB Q8HR [facility]AID Rx#:[id number] cefTRIAXone 2 gm In 50 0 50 Sodium Chloride 0.9% 50 ml @ 100 mls/hr IVPB Q24HR ZAID Rx#:[id number] Oral 1100 240 Hemodialysis 400 Output: Urine 50 30 10 Hemodialysis 2400 Other: Voiding Method Indwelling Catheter Indwelling Catheter Indwelling Catheter ABP, PAP, CO, CI - Last Documented Arterial Blood Pressure 83/58 Pulmonary Artery Pressure 45/17 Cardiac Output 3.5 Cardiac Index 2 - Exam No acute distress, oriented 3. Currently on room air. HEENT examination is grossly unremarkable. Mucous membranes are moist. No oral lesions. Neck supple. Full range of motion. No adenopathy thyromegaly or neck vein distention. Cardiovascular examination reveals regular rhythm rate. S1-S2 normal. No S3 or S4. No discernible murmur noted. Heart sounds are distant. Heart rate is 77 bpm. Lungs reveal scattered rhonchi. No wheezes or crackles. Breath sounds equal bilaterally. Saturation is 97 % on room air. Abdomen soft, but obese, with bowel sounds. No masses or tenderness. Extremities are intact. No cyanosis clubbing or edema. Skin is without rash or lesion. Neurologic examination is brief but nonfocal. - Labs CBC & Chem 7: 09/15/23 04:38 09/15/23 04:38 Labs: Abnormal Lab Results - Last 24 Hours (Table) 09/14/23 09/14/23 09/14/23 Range/Units 11:40 11:53 17:22 WBC (3.8-10.6) k/uL RBC (4.30-5.90) m/uL Hgb (13.0-17.5) gm/dL Hct (39.0-53.0) % MCV (80.0-100.0) fL MCHC (31.0-37.0) g/dL RDW (11.5-15.5) % Plt Count (150-450) k/uL Neutrophils # (1.3-7.7) k/uL Sodium (137-145) mmol/L Chloride (98-107) mmol/L BUN (9-20) mg/dL Creatinine (0.66-1.25) mg/dL Glucose (74-99) mg/dL POC Glucose (mg/dL) 331 H 144 H (70-110) mg/dL Calcium (8.4-10.2) mg/dL Total Bilirubin (0.2-1.3) mg/dL Alkaline Phosphatase (38-126) U/L Total Protein (6.3-8.2) g/dL Albumin (3.5-5.0) g/dL Urine Protein 3+ H (Negative) Urine Glucose (UA) 1+ H (Negative) Urine Blood Moderate H (Negative) Ur Leukocyte Esterase Large H (Negative) Urine RBC 69 H (0-5) /hpf Urine WBC >182 H (0-5) /hpf Urine WBC Clumps Many H (None) /hpf Urine Bacteria Few H (None) /hpf 09/14/23 09/15/23 09/15/23 Range/Units 20:05 04:38 04:38 WBC 21.9 H (3.8-10.6) k/uL RBC 3.09 L (4.30-5.90) m/uL Hgb 10.0 L (13.0-17.5) gm/dL Hct 32.7 L (39.0-53.0) % MCV 105.7 H D (80.0-100.0) fL MCHC 30.5 L (31.0-37.0) g/dL RDW 17.5 H (11.5-15.5) % Plt Count 73 L (150-450) k/uL Neutrophils # 18.3 H (1.3-7.7) k/uL Sodium 130 L (137-145) mmol/L Chloride 97 L (98-107) mmol/L BUN 37 H (9-20) mg/dL Creatinine 2.58 H (0.66-1.25) mg/dL Glucose 132 H (74-99) mg/dL POC Glucose (mg/dL) 204 H (70-110) mg/dL Calcium 7.6 L (8.4-10.2) mg/dL Total Bilirubin 1.5 H (0.2-1.3) mg/dL Alkaline Phosphatase 204 H (38-126) U/L Total Protein 5.3 L (6.3-8.2) g/dL Albumin 2.7 L (3.5-5.0) g/dL Urine Protein (Negative) Urine Glucose (UA) (Negative) Urine Blood (Negative) Ur Leukocyte Esterase (Negative) Urine RBC (0-5) /hpf Urine WBC (0-5) /hpf Urine WBC Clumps (None) /hpf Urine Bacteria (None) /hpf 09/15/23 Range/Units 06:45 WBC (3.8-10.6) k/uL RBC (4.30-5.90) m/uL Hgb (13.0-17.5) gm/dL Hct (39.0-53.0) % MCV (80.0-100.0) fL MCHC (31.0-37.0) g/dL RDW (11.5-15.5) % Plt Count (150-450) k/uL Neutrophils # (1.3-7.7) k/uL Sodium (137-145) mmol/L Chloride (98-107) mmol/L BUN (9-20) mg/dL Creatinine (0.66-1.25) mg/dL Glucose (74-99) mg/dL POC Glucose (mg/dL) 128 H (70-110) mg/dL Calcium (8.4-10.2) mg/dL Total Bilirubin (0.2-1.3) mg/dL Alkaline Phosphatase (38-126) U/L Total Protein (6.3-8.2) g/dL Albumin (3.5-5.0) g/dL Urine Protein (Negative) Urine Glucose (UA) (Negative) Urine Blood (Negative) Ur Leukocyte Esterase (Negative) Urine RBC (0-5) /hpf Urine WBC (0-5) /hpf Urine WBC Clumps (None) /hpf Urine Bacteria (None) /hpf Microbiology - Last 24 Hours (Table) 09/13/23 07:45 Urine Culture - Preliminary Urine,Voided Gram Neg Bacilli Assessment and Plan Assessment: Postop day #12, S/P three-vessel bypass grafting. Routine postoperative ventilator management. Chronic systolic CHF, with an ejection fraction of 30 to 35%. Cardiogenic shock and severe LV dysfunction. Gram-negative bacillary urinary tract infection. Peripheral vascular disease. Type 2 diabetes mellitus. Essential hypertension. Hyperlipidemia. History of developmental delay. Bipolar disorder. Chronic anxiety. Prior history of tobacco use. Left apical pneumothorax. Acute kidney injury/ATN, currently requiring hemodialysis. Severe cardiomyopathy. Severe metabolic acidosis. Plan: Plan dated September 09, 2023. The patient is seen today in room 266. He is currently on room air. He is on an insulin drip at 2 units an hour. In addition, for cardiovascular support, he is on dobutamine at 2.5 mcg/kg/min. He is getting lactated Ringer's at 30 cc an hour. Unfortunately, his kidneys have failed, and he will have hemodialysis for the first time today. We will continue to follow, make recommendations along the way. Labs, x-rays, medications are all reviewed. The patient's overall prognosis remains guarded. Plan dated September 10, 2023. The patient is seen today in room 266. The patient continues on an insulin drip at 3 units an hour, and also is on dobutamine, for cardiovascular support at 5 mcg/kg/min. The patient's overall clinical situation remains about the same. He is not particularly motivated at this point. The patient does poorly on his incentive spirometer. Labs, x-rays, and medications are reviewed. We will cont inue to follow the patient, make recommendations along the way. Prognosis is certainly guarded. Plan dated September 11, 2023. The patient is seen today in room 266. The patient continues on dobutamine at 2.5 mcg/kg/min. The patient is on room air. He is currently undergoing hemodialysis, with a goal today of removing 1 L of fluid. The patient is also getting saline at 20 cc an hour. Labs, x-rays, and medications are reviewed. The patient is not particularly motivated to get better. He does very poorly on his incentive spirometer. We will continue to follow and make recommendations along the way. Prognosis is currently guarded. Plan dated September 12, 2023. The patient is seen again in room 266. He continues on room air. He is not receiving any fluids other than saline at 20 cc an hour. A permanent hemodialysis catheter will be placed later today. Labs are reviewed. X-rays are reviewed. All medications are reviewed. The patient continues to do poorly with his incentive spirometer. We will continue to follow make recommendations. Prognosis is guarded. Plan dated September 13, 2023. The patient apparently refused his hemodialysis catheter yesterday. The patient did have hemodialysis yesterday, and 2 L of fluid was removed. The patient is currently getting saline at 20 cc an hour. The patient is currently on room air. Labs, x-rays, and medications are reviewed. We will continue to follow, and make recommendations along the way. Prognosis is guarded. The patient has not been particularly motivated. He does poorly on his incentive spirometer. Plan dated September 14, 2023. The patient continues to do only marginally better. He does very poorly on his incentive spirometer. He did have hemodialysis yesterday. Dr. Weller was going to place a permanent hemodialysis catheter, but it never happened. Labs, x- rays, and medications are reviewed. 1 L of fluid was removed yesterday, during hemodialysis session. We will continue to follow the patient, and make r ecommendations. We do encourage him to use his incentive spirometer. Plan dated September 15, 2023. Apparently the patient is to receive a permanent hemodialysis catheter tomorrow. The patient did have hemodialysis yesterday, 2 L was removed. The patient's urine is showing evidence of gram-negative bacilli, and the patient was started on Rocephin yesterday for an anticipated urinary tract infection. Labs, x-rays, and medications are reviewed. The patient continues to do very poorly on his incentive spirometer. The patient cannot stand on his own. He is too weak. He will likely need rehab of some sort. Time with Patient: Less than 30
--- NOTE | 2023-09-15 11:10 | P.PN ---
Subjective Progress Note Date: 09/15/23 Patient is seen for follow-up for acute kidney injury, oliguric hemodynamic ATN. Status post coronary artery bypass surgery on 09/02/2023. Started on hemodialysis on 09/09/2023 for severe progressive hemodynamic ATN. Patient remains oliguric. Bladder scan shows urine, difficulty Hobson placement. Patient denies any new complaints and feeling well overall. Patient is awake, comfortable. No acute distress Examination of the heart S1 and S2 Examination of the lungs decreased breath sounds at the bases Abdomen is soft Examination of lower extremities shows 1+ edema with significant scrotal edema Objective - Vital Signs Vital signs: Vital Signs Temp 98.2 F 09/15/23 08:00 Pulse 77 09/15/23 09:00 Resp 14 09/15/23 09:00 BP 115/61 09/15/23 09:00 Pulse Ox 96 09/15/23 09:00 FiO2 40 09/02/23 20:33 Intake & Output 09/14/23 09/15/23 09/15/23 18:59 06:59 18:59 Intake Total 1600 240 50 Output Total 2450 30 10 Balance -850 210 40 Weight 89.8 kg Intake: IV 100 0 50 ceFAZolin 1,000 mg In 50 Sodium Chloride 0.9% 50 ml @ 100 mls/hr IVPB Q8HR [facility] Rx#:[id number] cefTRIAXone 2 gm In 50 0 50 Sodium Chloride 0.9% 50 ml @ 100 mls/hr IVPB Q24HR [facility] Rx#:[id number] Oral 1100 240 Hemodialysis 400 Output: Urine 50 30 10 Hemodialysis 2400 Other: Voiding Method Indwelling Catheter Indwelling Catheter Indwelling Catheter ABP, PAP, CO, CI - Last Documented Arterial Blood Pressure 83/58 Pulmonary Artery Pressure 45/17 Cardiac Output 3.5 Cardiac Index 2 - Labs CBC & Chem 7: 09/15/23 04:38 09/15/23 04:38 Labs: Abnormal Lab Results - Last 24 Hours (Table) 09/14/23 09/14/23 09/14/23 Range/Units 11:40 11:53 17:22 WBC (3.8-10.6) k/uL RBC (4.30-5.90) m/uL Hgb (13.0-17.5) gm/dL Hct (39.0-53.0) % MCV (80.0-100.0) fL MCHC (31.0-37.0) g/dL RDW (11.5-15.5) % Plt Count (150-450) k/uL Neutrophils # (1.3-7.7) k/uL Sodium (137-145) mmol/L Chloride (98-107) mmol/L BUN (9-20) mg/dL Creatinine (0.66-1.25) mg/dL Glucose (74-99) mg/dL POC Glucose (mg/dL) 331 H 144 H (70-110) mg/dL Calcium (8.4-10.2) mg/dL Total Bilirubin (0.2-1.3) mg/dL Alkaline Phosphatase (38-126) U/L Total Protein (6.3-8.2) g/dL Albumin (3.5-5.0) g/dL Urine Protein 3+ H (Negative) Urine Glucose (UA) 1+ H (Negative) Urine Blood Moderate H (Negative) Ur Leukocyte Esterase Large H (Negative) Urine RBC 69 H (0-5) /hpf Urine WBC >182 H (0-5) /hpf Urine WBC Clumps Many H (None) /hpf Urine Bacteria Few H (None) /hpf 09/14/23 09/15/23 09/15/23 Range/Units 20:05 04:38 04:38 WBC 21.9 H (3.8-10.6) k/uL RBC 3.09 L (4.30-5.90) m/uL Hgb 10.0 L (13.0-17.5) gm/dL Hct 32.7 L (39.0-53.0) % MCV 105.7 H D (80.0-100.0) fL MCHC 30.5 L (31.0-37.0) g/dL RDW 17.5 H (11.5-15.5) % Plt Count 73 L (150-450) k/uL Neutrophils # 18.3 H (1.3-7.7) k/uL Sodium 130 L (137-145) mmol/L Chloride 97 L (98-107) mmol/L BUN 37 H (9-20) mg/dL Creatinine 2.58 H (0.66-1.25) mg/dL Glucose 132 H (74-99) mg/dL POC Glucose (mg/dL) 204 H (70-110) mg/dL Calcium 7.6 L (8.4-10.2) mg/dL Total Bilirubin 1.5 H (0.2-1.3) mg/dL Alkaline Phosphatase 204 H (38-126) U/L Total Protein 5.3 L (6.3-8.2) g/dL Albumin 2.7 L (3.5-5.0) g/dL Urine Protein (Negative) Urine Glucose (UA) (Negative) Urine Blood (Negative) Ur Leukocyte Esterase (Negative) Urine RBC (0-5) /hpf Urine WBC (0-5) /hpf Urine WBC Clumps (None) /hpf Urine Bacteria (None) /hpf 09/15/23 Range/Units 06:45 WBC (3.8-10.6) k/uL RBC (4.30-5.90) m/uL Hgb (13.0-17.5) gm/dL Hct (39.0-53.0) % MCV (80.0-100.0) fL MCHC (31.0-37.0) g/dL RDW (11.5-15.5) % Plt Count (150-450) k/uL Neutrophils # (1.3-7.7) k/uL Sodium (137-145) mmol/L Chloride (98-107) mmol/L BUN (9-20) mg/dL Creatinine (0.66-1.25) mg/dL Glucose (74-99) mg/dL POC Glucose (mg/dL) 128 H (70-110) mg/dL Calcium (8.4-10.2) mg/dL Total Bilirubin (0.2-1.3) mg/dL Alkaline Phosphatase (38-126) U/L Total Protein (6.3-8.2) g/dL Albumin (3.5-5.0) g/dL Urine Protein (Negative) Urine Glucose (UA) (Negative) Urine Blood (Negative) Ur Leukocyte Esterase (Negative) Urine RBC (0-5) /hpf Urine WBC (0-5) /hpf Urine WBC Clumps (None) /hpf Urine Bacteria (None) /hpf Microbiology - Last 24 Hours (Table) 09/13/23 07:45 Urine Culture - Preliminary Urine,Voided Gram Neg Bacilli Assessment and Plan Plan: 1. Acute kidney injury secondary to ATN secondary to hypotension/cardiogenic shock. Baseline creatinine near 1. Oliguric. UA fairly benign. Started renal replacement therapy on 09/09/2023. Bladder scan 09/13 showed urine, nurse difficulty Hobson placement. 2. Coronary artery disease status post CABG x 3 September 02, 2023. 3. Shock s/p Levophed, vasopressin, dopamine and dobutamine. 4. Cardiomyopathy with reduced ejection fraction. EF 25-20% 5. Metabolic acidosis secondary to acute kidney injury. improved 6. Cardiomyopathy with EF 20-25% Plan: Hemodialysis yesterday tolerated well. Next HD tomorrow. Permcath scheduled as well. Urology consulted for difficulty Hobson as bladder scan showed retention. Encourage increased oral intake Monitor strict I/O's for renal recovery.
[2023-09-15 11:16] LABS: Glucose,Whole Blood 164 mg/dL (70-110)
--- NOTE | 2023-09-15 13:40 | P.PN ---
Subjective Progress Note Date: 09/15/23 63-year-old gentleman with past medical history significant for coronary artery disease, chronic congestive heart failure with ejection fraction of 30%, hypertension hyperlipidemia diabetes mellitus obesity bipolar disorder cardiomyopathy developmental delay history of nicotine dependence who has been admitted with shortness of breath and lower extremity edema. Patient underwent cardiac catheterization right heart catheterization and intra-aortic balloon pump. * Patient has comorbidities including diabetes mellitus type 2, peripheral arterial disease, bipolar disorder, history of anxiety. * Patient to undergo myocardial revascularization 09/02/2023. * 09/03/23 : Patient admitted to medical ICU. Patient was successfully extubated postprocedure. S/p intra-aortic balloon pump which remains in place through right femoral access. Patient remains on norepinephrine drip, Primacor drip, vasopressin. Bilateral chest tubes remained in place. Followed up by medical ICU and cardiac surgery. Follow-up blood work obtained including WBC 15.2 hemoglobin 9.2 platelet count of 98, serum chemistry sodium 141 potassium 4.7 carbon dioxide 24 BUN 26 creatinine 1.1 blood glucose 118-1 33 * 09/04/23: Patient seen and evaluated in medical ICU room 266, patient continues to remain on Levophed, vasopressin and pressor support. Blood work reviewed WBC 17.7 hemoglobin 9.4 platelet 117. Serum chemistry showed sodium 137 potassium 4.9 carbon dioxide 18 BUN 34 creatinine 1.52 blood glucose 123. Overnight patient was refusing to participate with care, patient counseled by cardiac surgery team as well. Brother at bedside, patient does follow commands, care plan discussed with nursing staff * 09/05/23: Patient seen and evaluated bedside, vitals reviewed blood pressure running in the 90s overnight. Patient remains on 2 L of oxygen. Blood work reviewed CBC shows WBC 14.3 hemoglobin 9.3 platelet 105 serum chemistry sodium 137 potassium 5.2 carbon dioxide 16 BUN 44 creatinine 1.99 total bilirubin 1.3 AST 464 ALT 128 will need to be monitored, p.atient remains lethargic however easily arousable 09/06/2023 -- Patient is seen and evaluated in ICU at bedside Vital signs reviewed and temperature of 97.9, pulse 90, respiration 14 and blood pressure of 110/40 Lab review shows WBC 14.2, hemoglobin of 8.7 and platelet count of 109, sodium 136, potassium 4.8, BUNs/creatinine of 54/2.91; concern about worsening renal function likely related to cardiorenal syndrome; dopamine has been discontinued Chest x-ray reveals atelectasis and bibasilar pleural effusion --Patient remains on pressors and inotropic agents; cardiac index and cardiac output is being monitored closely -Patient remains on Plavix, aspirin, statins and beta-blockers -- Recommended to increase activity 09/07/2023 ---patient is basically about the same, he is now postoperative day #5, sitting at the bedside chair, patient is not motivated what bit remains on multiple inotropes and pressors, patient is receiving dopamine at 2.5 mcg/kg/min dobutamine at 5 mcg/kg/min norepinephrine at 0.06 mcg/kg/min vasopressin at 0.03 units/min and he is also on insulin at 3.5 units/h today he is off milrinone. Chest x-ray showed mostly atelectasis at the bases. No clear-cut evidence of pulmonary edema. Patient is maintained on 2 L nasal cannula, again the patient is doing extremely poorly with incentive spirometry and does not seem to be mot ivated at all. Renal functioning seems to be getting worse, his BUN is 63 creatinine 3.54, at this rate I am quite concerned with the patient may end up requiring hemodialysis. This is being addressed by nephrology on the case. Liver enzymes are improving Continue pressors and inotropes continue to monitor cardiac index and cardiac output Continue dopamine, continue dobutamine, patient is off milrinone today. However he is still requiring norepinephrine and vasopressin Continue Plavix beta-blockers aspirin and statin Titrate pressors and inotropes as tolerated 09/08/2023 --patient is seen and evaluated with family at bedside; now postoperative day #6. -- Patient is still requiring dobutamine at 0.5 mcg/kg/min, still requiring vasopressin at 0.02 units/min, his norepinephrine is presently on hold, and milrinone was discontinued. Still on insulin at 3 units/h. -- chest x-ray is showing bibasilar atelectasis and small left pleural effusion with a small right pleural effusion -- WBC count is 6 hemoglobin 8.7 basic metabolic profile is normal except for b icarb of 15 and again worsening renal profile BUN is up to 71 creatinine 4.40 -Renal function continues to worsen; nephrology on board and planning to continue with IV Lasix and oral sodium bicarbonate; plan for possible hemodialysis in a.m. if urine output does not improve 09/09/2023 Patient is awake alert but looks very tired and lethargic lying in chair. No significant chest pain. Patient has average appetite No significant dyspnea but looks very weak Patient required pressors Patient planned and considered for hemodialysis given his worsening renal function today 5.2 compared with 1.5 upon admission He has severe cardiomyopathy with ejection fraction 20 to 25% and currently on aspirin and Plavix and amiodarone drip. Also he required pressors as above, cardiology following closely. 09/10/2023 Patient still lethargic still sitting in chair No much difference clinically from yesterday A plan to undergo hemodialysis today for first-line, hemodialysis catheter in place. Patient is oliguric. He is currently getting dobutamine and insulin drip 3 units/h He is also on aspirin and Plavix and metoprolol 09/11/2023 Patient remains very lethargic No new complaint He remains on dobutamine drip at 2.5 He is getting the third round of hemodialysis today His insulin drip switched to sliding scale and Levemir Continue with dual antiplatelet therapy Labs showing stable hemoglobin 9.5. Platelet 1 28,000 09/12/2023 Patient looks more awake and alert today, he still generally weak sitting up in chair. No chest pain no dyspnea, no other specific complaint he Is getting hemodialysis. Creatinine down to 2.9. Hemoglobin stable, platelet count stable. He was started on Levemir 14 and twice daily yesterday, his sugar was on the low side this morning therefore we are going to lower the dose to Levemir 15 units at bedtime with close monitoring. Started also on sodium bicarb 09/13. Patient seen and examined. Vital signs this morning WNL at 76, heart rate 115, respiratory rate. 14, blood pressure 118/71.Lab work done showed WBC 27.2, hemoglobin 9.7, platelet count 69, sodium 128, potassium 4.1, BUN 40, creatinine 2.83. Patient getting dialysis today. Currently not requiring any oxygen. 09/14. Patient seen and examined. Sitting upright in the chair. Labs done this morning showed WBC 21.9 hemoglobin 10, platelet count 73, sodium 130, potassium 3.7, BUN 37, creatinine 2.58. Currently on IV Rocephin for UTI REVIEW OF SYSTEMS: CONSTITUTIONAL: No fever, no malaise,. CARDIOVASCULAR: No chest pain, no palpitations, no syncope. PULMONARY: No shortness of breath, no cough, GASTROINTESTINAL: No diarrhea, no nausea, no vomiting, no abdominal pain. NEUROLOGICAL: No headaches, no weakness, PHYSICAL EXAMINATION: GENERAL: The patient is alert, not in any acute distress. Well developed, well nourished. HEENT: Pupils are round and equally reacting to light. EOMI. No scleral icterus. No conjunctival pallor. Normocephalic, atraumatic. No pharyngeal erythema. No thyromegaly. CARDIOVASCULAR: S1 and S2 present. No murmurs, rubs, or gallops. PULMONARY: Chest is clear to auscultation, no wheezing or crackles. ABDOMEN: Soft, nontender, nondistended, normoactive bowel sounds. No palpable organomegaly. MUSCULOSKELETAL: No joint swelling or deformity. EXTREMITIES: No cyanosis, clubbing, or pedal edema. NEUROLOGICAL: Gross neurological examination did not reveal any focal deficits. SKIN: No rashes. Assessment and plan Acute on chronic systolic ejection of congestive heart failure with ejection fraction worsened 35% down to 25% S/P three-vessel bypass grafting. UTI Postoperative hypoxic respiratory failure Cardiogenic shock Acute kidney injury requiring hemodialysis Peripheral vascular disease Hypertension Hyperlipidemia Diabetes mellitus Bipolar disorder Monitor vital signs Monitor CBC Monitor CMP Continue telemetry monitoring Encourage use of incentive spirometer Status post coronary artery bypass surgery on 09/02/2023 started on hemodialysis on 09/09/2023 for severe progressive ATN Continue aspirin, Plavix Monitor blood sugar levels, continue current regimen of insulin [id number] units at nighttime and sliding scale insulin Continue breathing treatments Continue IV Rocephin Patient scheduled for permacatheter placement on Saturday Nephrology following Critical care following CT surgery following Labs and medication were reviewed.. Continue same treatment. Continue with symptomatic treatment. Resume home medication. Monitor labs and vitals. DVT and GI prophylaxis. Further recommendations as per clinical course of the patient Dictation was produced using [employer] dictation software. please excuse any gram matical, word or spelling errors. Objective - Vital Signs Vital signs: Vital Signs Temp 97.7 F 09/15/23 12:00 Pulse 81 09/15/23 12:00 Resp 17 09/15/23 12:00 BP 110/60 09/15/23 12:00 Pulse Ox 97 09/15/23 12:00 FiO2 40 09/02/23 20:33 Intake & Output 09/14/23 09/15/23 09/15/23 18:59 06:59 18:59 Intake Total 1600 240 450 Output Total 2450 30 35 Balance -850 210 415 Weight 89.8 kg Intake: IV 100 0 50 ceFAZolin 1,000 mg In 50 Sodium Chloride 0.9% 50 ml @ 100 mls/hr IVPB Q8HR [facility] Rx#:[id number] cefTRIAXone 2 gm In 50 0 50 Sodium Chloride 0.9% 50 ml @ 100 mls/hr IVPB Q24HR [facility] Rx#:[id number] Oral 1100 240 400 Hemodialysis 400 Output: Urine 50 30 35 Hemodialysis 2400 Other: Voiding Method Indwelling Catheter Indwelling Catheter Indwelling Catheter ABP, PAP, CO, CI - Last Documented Arterial Blood Pressure 83/58 Pulmonary Artery Pressure 45/17 Cardiac Output 3.5 Cardiac Index 2 - Labs CBC & Chem 7: 09/15/23 04:38 09/15/23 04:38 Labs: Abnormal Lab Results - Last 24 Hours (Table) 09/14/23 09/14/23 09/15/23 Range/Units 17:22 20:05 04:38 WBC 21.9 H (3.8-10.6) k/uL RBC 3.09 L (4.30-5.90) m/uL Hgb 10.0 L (13.0-17.5) gm/dL Hct 32.7 L (39.0-53.0) % MCV 105.7 H D (80.0-100.0) fL MCHC 30.5 L (31.0-37.0) g/dL RDW 17.5 H (11.5-15.5) % Plt Count 73 L (150-450) k/uL Neutrophils # 18.3 H (1.3-7.7) k/uL Sodium (137-145) mmol/L Chloride (98-107) mmol/L BUN (9-20) mg/dL Creatinine (0.66-1.25) mg/dL Glucose (74-99) mg/dL POC Glucose (mg/dL) 144 H 204 H (70-110) mg/dL Calcium (8.4-10.2) mg/dL Total Bilirubin (0.2-1.3) mg/dL Alkaline Phosphatase (38-126) U/L Total Protein (6.3-8.2) g/dL Albumin (3.5-5.0) g/dL 09/15/23 09/15/23 09/15/23 Range/Units 04:38 06:45 11:15 WBC (3.8-10.6) k/uL RBC (4.30-5.90) m/uL Hgb (13.0-17.5) gm/dL Hct (39.0-53.0) % MCV (80.0-100.0) fL MCHC (31.0-37.0) g/dL RDW (11.5-15.5) % Plt Count (150-450) k/uL Neutrophils # (1.3-7.7) k/uL Sodium 130 L (137-145) mmol/L Chloride 97 L (98-107) mmol/L BUN 37 H (9-20) mg/dL Creatinine 2.58 H (0.66-1.25) mg/dL Glucose 132 H (74-99) mg/dL POC Glucose (mg/dL) 128 H 164 H (70-110) mg/dL Calcium 7.6 L (8.4-10.2) mg/dL Total Bilirubin 1.5 H (0.2-1.3) mg/dL Alkaline Phosphatase 204 H (38-126) U/L Total Protein 5.3 L (6.3-8.2) g/dL Albumin 2.7 L (3.5-5.0) g/dL Microbiology - Last 24 Hours (Table) 09/13/23 07:45 Urine Culture - Preliminary Urine,Voided Gram Neg Bacilli
[2023-09-15 16:39] LABS: Glucose,Whole Blood 221 mg/dL (70-110)
[2023-09-15 20:00] LABS: Glucose,Whole Blood 181 mg/dL (70-110)
--- NOTE | 2023-09-15 22:09 | PN ---
PROGRESS NOTE SUBJECTIVE: 63-year-old gentleman with coronary artery disease, status post bypass surgery; renal failure, on hemodialysis. The patient is free of cardiac symptoms, had been dialyzed yesterday. Remains in sinus rhythm. OBJECTIVE: VITAL SIGNS: Heart rate is 78 beats per minute. Blood pressure is 113/59, respiratory rate 16. CHEST: Exam reveals diminished air entry at the bases. HEART: Exam reveals first and second heart sounds. No gallop. No murmur. EXTREMITIES: Revealed mild edema. Peripheral pulses are felt. MEDICATIONS: The patient is on aspirin Lipitor, Plavix, midodrine, and metoprolol will be started soon. ASSESSMENT: 1. Coronary artery disease, status post coronary artery bypass graft. 2. Renal failure, on hemodialysis. PLAN: 1. Increase his activity. 2. Continue current medications. MMODL / IJN: [id number] /
[2023-09-16 04:36] LABS: ALT 33 U/L (4-49); AST 32 U/L (17-59); African American GFR (CKD) 22 (>60 ml/min/1.73 sqM); Albumin 2.8 g/dL (3.5-5.0); Alkaline Phosphatase 183 U/L (38-126); Anion Gap 11 mmol/L; Blood Urea Nitrogen 48 mg/dL (9-20); Calcium 7.8 mg/dL (8.4-10.2); Carbon Dioxide 25 mmol/L (22-30); Chloride 96 mmol/L (98-107); Glucose 109 mg/dL (74-99); Non-African American GFR(CKD) 19 (>60 ml/min/1.73 sqM); Phosphorus 3.9 mg/dL (2.5-4.5); Potassium 3.6 mmol/L (3.5-5.1); Sodium 132 mmol/L (137-145); Total Bilirubin 1.2 mg/dL (0.2-1.3); Total Protein 5.5 g/dL (6.3-8.2)
[2023-09-16 04:38] LABS: Anisocytosis Slight; Basophils % (A) 0 %; Eosinophils # (A) 0.4 k/uL (0-0.7); Eosinophils % (A) 2 %; HCT 30.5 % (39.0-53.0); HGB 9.7 gm/dL (13.0-17.5); Hypochromasia Slight; Lymphocytes # (A) 1.1 k/uL (1.0-4.8); Lymphocytes % (A) 7 %; MCH 31.5 pg (25.0-35.0); MCHC 31.6 g/dL (31.0-37.0); Macrocytosis Slight; Mean Platelet Volume 9.4; Monocytes # (A) 0.9 k/uL (0-1.0); Monocytes % (A) 6 %; Neutrophils # (A) 12.7 k/uL (1.3-7.7); Neutrophils % (A) 82 %; Platelet Count 109 k/uL (150-450); RBC 3.07 m/uL (4.30-5.90); RDW 17.4 % (11.5-15.5); WBC 15.5 k/uL (3.8-10.6)
[2023-09-16 04:39] LABS: MCV 99.5 fL (80.0-100.0)
[2023-09-16 07:00] LABS: Glucose,Whole Blood 107 mg/dL (70-110)
--- NOTE | 2023-09-16 08:04 | XR ---
EXAMINATION TYPE: XR chest 1V portable DATE OF EXAM: 09/16/2023 COMPARISON: 09/15/2023 HISTORY: Post CABG TECHNIQUE: Single frontal view of the chest is obtained. FINDINGS: Diffuse interstitial pattern with bilateral consolidation and pleural effusions. Post medi an sternotomy with atrial appendage clip. No sizable pneumothorax. Osseous structures are stable. IMPRESSION: Pleural parenchymal changes stable most typical of CHF.
--- NOTE | 2023-09-16 08:46 | P.PN ---
Subjective Progress Note Date: 09/16/23 Principal diagnosis: Triple-vessel coronary artery disease with left main disease. Past medical history significant for hypertension, hyperlipidemia, diabetes mellitus, chronic systolic heart failure with reduced ejection fraction/ischemic cardiomyopathy, bipolar disorder, obesity, peripheral vascular disease, developmental delay, previous tobacco dependence, noncompliance POD #15 right heart catheterization, ultrasound guided access, placement of intra-aortic balloon pump from right femoral access performed by Dr. Monreal. POD #14 on pump coronary artery bypass grafting x 3, left internal thoracic artery (in-situ) sequential to diagonal and left anterior descending coronary artery, right greater saphenous vein from aorta to obtuse marginal artery #1, left atrial appendage ligation with #35mm AtriClip, endoscopic bilateral greater saphenous vein harvest, graft flow measurements using the [employer] flow meter system, trans-esophageal echo Postoperative acute blood loss anemia and thrombocytopenia, expected given hemodilution and cardiopulmonary bypass LEONARDO, status post placement of temp dialysis cath Elevated transaminases, likely due to hypoperfusion,resolved Cardiogenic shock, resolved The patient was seen and examined in follow-up today September 16, 2023 at his bedside in the intensive care unit. He is currently sitting up to the bedside chair, is awake, alert, oriented x 3 and is in no acute apparent distress. Denies any complaints of pain or shortness of breath at this time. He is currently n.p.o. for hemodialysis permacath placement to be performed by Dr. Weller today. Oxygen saturations are 96% on room air and he is achieving 500 mL on his incentive spirometry with much encouragement. Bedside telemetry is showing normal sinus rhythm heart rate 80 bpm, no further episodes of bradycardia have been reported. He remains hemodynamically stable and is currently on no inotropic or pressor support. The patient was seen by urology yesterday with recommendations to leave Hobson catheter in place at this time. Urine culture is showing Escherichia coli, he continues on Rocephin for antibiotic coverage. His white count is trending down and today is 15.5. He remains afebrile in the last 24 hours. Chest x-ray and laboratory results were reviewed. Objective - Vital Signs Vital signs: Vital Signs Temp 97.6 F 09/16/23 08:00 Pulse 79 09/16/23 08:00 Resp 16 09/16/23 08:00 BP 116/60 09/16/23 08:00 Pulse Ox 99 09/16/23 08:00 FiO2 40 09/02/23 20:33 Intake & Output 09/15/23 09/16/23 09/16/23 18:59 06:59 18:59 Intake Total 850 Output Total 60 160 30 Balance 790 -160 -30 Intake: IV 50 cefTRIAXone 2 gm In 50 Sodium Chloride 0.9% 50 ml @ 100 mls/hr IVPB Q24HR [facility] Rx#:[id number] Oral 800 Output: Urine 60 160 30 Other: Voiding Method Indwelling Catheter Indwelling Catheter ABP, PAP, CO, CI - Last Documented Arterial Blood Pressure 83/58 Pulmonary Artery Pressure 45/17 Cardiac Output 3.5 Cardiac Index 2 - Exam CONSTITUTIONAL: Sitting up to the bedside chair in the intensive care unit, appears comfortable, cooperative, no apparent acute distress. HEENT: Neck is supple, no JVD, no lymphadenopathy. RESPIRATORY: Lungs sounds essentially clear throughout, diminished to his bilateral bases. Respirations are symmetrical and nonlabored. Currently on room air with oxygen saturations 96%. Able to achieve 500 mL on his incentive spirometry with encouragement and instruction. Weak cough. CARDIOVASCULAR: Regular rhythm and rate. S1 and S2 present, negative for S3, gallop or murmur. Bedside telemetry showing normal sinus rhythm heart rate 80 bpm. Sternum is stable. Palpable peripheral pulses bilaterally, +1 edema generalized. No calf pain or tenderness noted. Heart hugger in place with patient demonstrating appropriate use with much encouragement. Knee-high VARUN hose and sequential compression devices in place to his bilateral lower extremities. GASTROINTESTINAL: Abdomen soft, nontender, nondistended. Active bowel sounds present 4 quadrants. Tolerating minimal diet with encouragement and assistance. No guarding or rigidity. GENITOURINARY: Hemodialysis September 14, 2023 with 2400 mL of ultrafiltration completed. Hobson catheter in place for urine retention, urine output in the last 8 hours is 125 mL. INTEGUMENTARY: Skin is warm and dry with no evidence of clubbing or cyanosis. Midline sternal incision clean dry and well approximated, covered with dry intact dressing. Bilateral lower extremity EVH sites well approximated without redness or drainage. Erythema to his coccyx, dressing clean, dry and intact. NEUROLOGIC: Cranial nerves II through XII intact. MUSKULOSKELETAL: Able to move all extremities, strength equal bilaterally, generalized weakness. PSYCHIATRIC: Alert and oriented to person place and disoriented to time, appropriate affect. - Allied health notes Allied health notes reviewed: nursing - Labs CBC & Chem 7: 09/16/23 03:48 09/16/23 03:48 Labs: Abnormal Lab Results - Last 24 Hours (Table) 09/15/23 09/15/23 09/15/23 Range/Units 11:15 16:38 19:58 WBC (3.8-10.6) k/uL RBC (4.30-5.90) m/uL Hgb (13.0-17.5) gm/dL Hct (39.0-53.0) % RDW (11.5-15.5) % Plt Count (150-450) k/uL Neutrophils # (1.3-7.7) k/uL Sodium (137-145) mmol/L Chloride (98-107) mmol/L BUN (9-20) mg/dL Creatinine (0.66-1.25) mg/dL Glucose (74-99) mg/dL POC Glucose (mg/dL) 164 H 221 H 181 H (70-110) mg/dL Calcium (8.4-10.2) mg/dL Alkaline Phosphatase (38-126) U/L Total Protein (6.3-8.2) g/dL Albumin (3.5-5.0) g/dL 09/16/23 09/16/23 Range/Units 03:48 03:48 WBC 15.5 H (3.8-10.6) k/uL RBC 3.07 L (4.30-5.90) m/uL Hgb 9.7 L (13.0-17.5) gm/dL Hct 30.5 L (39.0-53.0) % RDW 17.4 H (11.5-15.5) % Plt Count 109 L (150-450) k/uL Neutrophils # 12.7 H (1.3-7.7) k/uL Sodium 132 L (137-145) mmol/L Chloride 96 L (98-107) mmol/L BUN 48 H (9-20) mg/dL Creatinine 3.34 H (0.66-1.25) mg/dL Glucose 109 H (74-99) mg/dL POC Glucose (mg/dL) (70-110) mg/dL Calcium 7.8 L (8.4-10.2) mg/dL Alkaline Phosphatase 183 H (38-126) U/L Total Protein 5.5 L (6.3-8.2) g/dL Albumin 2.8 L (3.5-5.0) g/dL Microbiology - Last 24 Hours (Table) 09/14/23 11:40 Urine Culture - Preliminary Urine,Voided Gram Neg Bacilli 09/13/23 07:45 Urine Culture - Final Urine,Voided Escherichia coli - Imaging and Cardiology Chest x-ray: report reviewed, image reviewed Assessment and Plan Assessment: Multivessel coronary artery disease with left main disease, status post three- vessel on pump coronary artery bypass grafting surgery Chronic systolic congestive heart failure with an ejection fraction of 30 to 35%, status post preoperative intra-aortic balloon pump placement Cardiomyopathy Hypertension, currently on midodrine for blood pressure support Hyperlipidemia Diabetes mellitus type 2, with hemoglobin A1c 10.9 in April 2023, preop erative hemoglobin A1c 7.4% on September 01, 2023 Peripheral arterial disease, recent ABIs to right 0.95 and left 0.97 Bilateral pleural effusions on July 16, 2023 CT scan of the chest Obesity with a BMI of 32.7 kg/m Bipolar disorder Developmentally delayed Anxiety Noncompliance with medical therapy Remote history of nicotine dependence quit smoking over 20 years ago, with an FEV1 of 55% of predicted value and a base volume of 1.43 Postoperative acute blood loss anemia and thrombocytopenia, expected Incidental finding of tiny left pneumothorax, not a complication, resolved Acute kidney injury, status post dialysis cath placement Elevated transaminase and cardiogenic shock, likely from hypoperfusion, resolved Leukocytosis, positive urine culture for Escherichia coli Plan: Continue aspirin, Plavix, and restart statin as liver enzymes have normalized. Start metoprolol tartrate 12.5 mg p.o. twice daily with hold parameters. Continue midodrine 5 mg p.o. 3 times daily per cardiology management. Encourage use of incentive spirometry 10 times every hour while awake. Bronchodilators per pulmonology. Increase activity, ambulate as tolerated. PT/OT/cardiac rehab following. Will monitor daily labs and chest x-rays. Hemodialysis recommendations per nephrology, scheduled for permacath today Saturday, September 16, 2023. Currently n.p.o. Avoid nephrotoxic agents. Pain control per current medication regimen. Avoid to Toradol. No narcotics. Continue Hobson catheter for another 24 hours, continue to record strict accurate intake and output. Urology consult noted and appreciated. Urine culture positive for Escherichia coli, continue Rocephin for IV antibiotic coverage. Insulin management per internal medicine. Preoperative hemoglobin A1c 7.4%. GI/DVT prophylaxis. Daily weights. Encourage oral intake, supplements ordered. Patient needs continued encouragement to participate in his care. Prognosis remains very guarded. Patient will likely need to be discharged to LTAC due to high level of care, needs extensive rehab, dialysis, daily physician monitoring with daily change in medications and plan based on daily labs. Social work to obtain insurance authorization when patient is ready to be discharged. More recommendations to follow based on patient's clinical course. Time with Patient: Greater than 30
--- NOTE | 2023-09-16 10:54 | P.PN ---
Subjective Patient is seen in follow-up for acute kidney injury, currently hemodialysis dependent. Scheduled for permacath placement today. Sitting up in chair. Denies chest pain or shortness of breath. Oral intake fair. Urine output remains low. Vital signs are stable. General: No acute distress. HEENT: Head exam is unremarkable. LUNGS: No audible rhonchi or wheezes. HEART: Rate and Rhythm are regular. ABDOMEN: Nontender. EXTREMITITES: No edema. Objective - Vital Signs Vital signs: Vital Signs Temp 97.6 F 09/16/23 08:00 Pulse 79 09/16/23 08:00 Resp 16 09/16/23 08:00 BP 116/60 09/16/23 08:00 Pulse Ox 99 09/16/23 08:00 FiO2 40 09/02/23 20:33 Intake & Output 09/15/23 09/16/23 09/16/23 18:59 06:59 18:59 Intake Total 850 Output Total 60 160 30 Balance 790 -160 -30 Intake: IV 50 cefTRIAXone 2 gm In 50 Sodium Chloride 0.9% 50 ml @ 100 mls/hr IVPB Q24HR ON [facility] OF [facility] Rx#:[id number] Oral 800 Output: Urine 60 160 30 Other: Voiding Method Indwelling Catheter Indwelling Catheter ABP, PAP, CO, CI - Last Documented Arterial Blood Pressure 83/58 Pulmonary Artery Pressure 45/17 Cardiac Output 3.5 Cardiac Index 2 - Labs CBC & Chem 7: 09/16/23 03:48 09/16/23 03:48 Labs: Abnormal Lab Results - Last 24 Hours (Table) 09/15/23 09/15/23 09/15/23 Range/Units 11:15 16:38 19:58 WBC (3.8-10.6) k/uL RBC (4.30-5.90) m/uL Hgb (13.0-17.5) gm/dL Hct (39.0-53.0) % RDW (11.5-15.5) % Plt Count (150-450) k/uL Neutrophils # (1.3-7.7) k/uL Sodium (137-145) mmol/L Chloride (98-107) mmol/L BUN (9-20) mg/dL Creatinine (0.66-1.25) mg/dL Glucose (74-99) mg/dL POC Glucose (mg/dL) 164 H 221 H 181 H (70-110) mg/dL Calcium (8.4-10.2) mg/dL Alkaline Phosphatase (38-126) U/L Total Protein (6.3-8.2) g/dL Albumin (3.5-5.0) g/dL 09/16/23 09/16/23 Range/Units 03:48 03:48 WBC 15.5 H (3.8-10.6) k/uL RBC 3.07 L (4.30-5.90) m/uL Hgb 9.7 L (13.0-17.5) gm/dL Hct 30.5 L (39.0-53.0) % RDW 17.4 H (11.5-15.5) % Plt Count 109 L (150-450) k/uL Neutrophils # 12.7 H (1.3-7.7) k/uL Sodium 132 L (137-145) mmol/L Chloride 96 L (98-107) mmol/L BUN 48 H (9-20) mg/dL Creatinine 3.34 H (0.66-1.25) mg/dL Glucose 109 H (74-99) mg/dL POC Glucose (mg/dL) (70-110) mg/dL Calcium 7.8 L (8.4-10.2) mg/dL Alkaline Phosphatase 183 H (38-126) U/L Total Protein 5.5 L (6.3-8.2) g/dL Albumin 2.8 L (3.5-5.0) g/dL Microbiology - Last 24 Hours (Table) 09/14/23 11:40 Urine Culture - Preliminary Urine,Voided Gram Neg Bacilli 09/13/23 07:45 Urine Culture - Final Urine,Voided Escherichia coli Assessment and Plan Plan: Assessment: 1. Acute kidney injury secondary to ATN secondary to hypotension/cardiogenic shock. Baseline creatinine near 1. Started on hemodialysis September 09, 2023. Scheduled for permacath placement today. Oliguric. 2. Coronary artery disease status post CABG x 3 September 02, 2023. 3. Shock now off vasopressors. 4. Cardiomyopathy with reduced ejection fraction. 5. Metabolic acidosis secondary to acute kidney injury. Improved postdialysis. Also on oral bicarb. 6. Urinary retention. Status post bladder irrigation and Hobson catheter placement. Urology following. Plan: Hemodialysis today. Permacath placement today. Encouraged oral intake. Monitor for renal recovery outpatient.
--- NOTE | 2023-09-16 11:15 | P.PN ---
Subjective Progress Note Date: 09/16/23 63-year-old male patient, was brought into the intensive care unit after having an antibiotic balloon pump inserted this morning and this was done in preparation for coronary artery bypass surgery. The patient is known to have CAD, chronic CHF with impaired ejection fraction of 30 to 35%. The patient has been hospitalized with [facility] and an earlier cardiac catheterization from April 2023 showed a 70% left main, 70% proximal LAD, 30% circumflex and 70% obtuse marginal 1 and 60% mid RCA. The patient has impaired LV function with an EF around 30 to 35% along with mild to moderate MR, and severe pulm hypertension. The patient is scheduled to undergo coronary artery bypass surgery tomorrow. He is currently on room air oxygen. Free of any chest pain. Hemodynamically stable. Augmented blood pressure is around 80. He has some developmental delay and his other comorbid conditions include diabetes mellitus type 2, hypertension and hyperlipidemia. Blood work shows a white cell count of 9, hemoglobin 11.8, platelet count of 206, normal coagulation profile, BUN of 27 with a creatinine of 1 and sodium levels at 138. LFTs are normal. His CAT scan of the chest that was done on 07/16/2023 showed cardiomegaly with small right and left-sided pleural effusion. This is consistent with CHF. No mediastinal lymphadenopathy. The patient is seen today September 02, 2023 in follow-up in the intensive care unit following surgery. He had undergone an on pump coronary artery bypass grafting x 3 with a left internal thoracic artery sequential to diagonal and the LAD. Right SVG from the aorta to the obtuse marginal #1. Left atrial appendage ligation and clipping. He remains intubated on the mechanical ventilator and assist-control mode at a rate of 14, tidal volume 500, FiO2 40% and a PEEP of 10. He remains on propofol at 20 mcg/kg/min. Lactated Ringer's at 50 MLS per hour. He is requiring vasopressin at 0.04 units/min. Insulin drip at 1 unit/h. Norepinephrine at 0.05 mcg/kg/min. Milrinone at 0.25 mcg/kg/min intra-aortic balloon pump remains in place. Mediastinal and right and left split chest tubes remain in place. Cardiac output is 4.7. Cardiac index 2.6. Received albumin. Receiving cefazolin. Heparin for DVT prophylaxis. White count 11.7. Hemoglo bin 11.5. Platelets 84,000. INR 1.4. Sodium 141. Potassium 3.7. Bicarb 22. BUN 22. Creatinine 0.88. Glucose 101. X-ray no overt failure, pneumothorax or sizable consolidation. ABG's are pending. Patient was today on 09/03/2023, patient was extubated last night uneventfully, patient is now on 2 L nasal cannula, his intra-aortic balloon has been removed today patient remains on pressors and on inotropes. Still requiring norepinephrine at 0.02 mcg/kg/min still on milrinone 0.25 mcg/kg/min and on 0.04 units/min of vasopressin. Cardiac output today is 6.5 cardiac index is 3.7 PA pressure 41/17 CVP of 15. Continues to have mediastinal left and right-sided pleural chest tubes in place, had about 780 mL output since surgery. Chest x- ray is showing mostly postoperative changes labs were all reviewed. WBC count is 15.2 hemoglobin 9.2. Basic metabolic profile is normal, creatinine 1.10 up from 0.88 yesterday Reevaluated today on 09/04/2023, patient remains in the ICU on 3 L nasal cannula, insulin drip at 1.5 units/h still receiving norepinephrine at 0.08 mcg/kg/min milrinone 0.1 mcg/kg/min vasopressin at 0.03 units/min. Cardiac output is 5.0 cardiac index 2.8, patient remains marginal at best, he is sitting at the bedside chair, does not seem to be in distress, on 3 L nasal cannula. Chest x- ray showed no evidence of pulmonary edema no evidence of pneumonia he does have a small tiny apical left pneumothorax. WBC count is 17.7 hemoglobin 9.4. Basic metabolic profile is normal however his BUN is 34 creatinine is 1.52, apparently the patient does have sustained some acute kidney injury most likely related to hypotension/acute tubular necrosis. Patient was reevaluated today on 09/05/2023, remains in the ICU, still requiring multiple drips, he is on dopamine at 2.5 mcg/kg/min norepinephrine at 0.03 mcg/kg/min vasopressin 0.03 units/min patient is also on insulin at 1.5 units/h. Cardiac index remains low at 1.9 cardiac output is relatively low at 3.4. Pulmonary artery pressure 44/18, CVP is 12. Patient does not seem to be very much motivated, he is achieving less than 500 cc on incentive spirometry. The last patient is on 2 L nasal cannula, refusing to participate in physical activity, refusing incentive spirometry, chest tubes, remain in place, prognosis remains guarded. Chest x-ray showed mostly bibasilar atelectasis, mild interstitial prominence, I doubt left-sided pneumothorax as documented by radiology Reevaluate today on 09/06/2023, patient is basically about the same. Patient is in the ICU, he is on multiple drips including higher dose of inotrope, milrinone 0.25 he is on norepinephrine at 0.02 mcg/kg/min vasopressin at 0.03 units/min do pamine at 2.5 mcg/kg/min dobutamine at 2.5 mcg/kg/min insulin at 2.5 units an hour, urine output is low, patient received albumin cardiac index is 2.9 today cardiac output is 5.9. His renal functioning is getting a bit worse, patient apparently the patient is developing what seems to be a cardiorenal syndrome. Chest x-ray is showing atelectasis and bibasilar pleural effusions. Patient is not motivated, does not seem to be interested in getting motivated. And been doing poorly with incentive spirometry Reevaluate today on 09/06, patient is basically about the same, he is now postoperative day #5, sitting at the bedside chair, patient is not motivated what bit remains on multiple inotropes and pressors, patient is receiving dopamine at 2.5 mcg/kg/min dobutamine at 5 mcg/kg/min norepinephrine at 0.06 mcg/kg/min vasopressin at 0.03 units/min and he is also on insulin at 3.5 units/ h today he is off milrinone. Cardiac output is 3.8 cardiac index is 2.1 PA pressure 43/15 CVP is 13. Chest x-ray showed mostly atelectasis at the bases. No clear-cut evidence of pulmonary edema. Patient is maintained on 2 L nasal cannula, again the patient is doing extremely poorly with incentive spirometry and does not seem to be motivated at all. Renal functioning seems to be getting worse, his BUN is 63 creatinine 3.54, at this rate I am quite concerned with the patient may end up requiring hemodialysis. This is being addressed by nephrology on the case. Liver enzymes are improving Today on 09/08/2023, patient is now postoperative day #6. Patient is still requiring dobutamine at 0.5 mcg/kg/min, still requiring vasopressin at 0.02 units/min, his norepinephrine is presently on hold, and milrinone was discontinued. Still on insulin at 3 units/h. Surprisingly the patient is not developing congestive heart failure, but he is developing worsening renal failure, and he may end up requiring renal replacement therapy. His PA pressure 40/18, his cardiac output is 3.9 cardiac index is 2.2 chest x-ray is showing bibasilar atelectasis and small left pleural effusion with a small right pleural effusion Hal[place]-Isabell remains in place WBC count is 6 hemoglobin 8.7 basic metabolic profile is normal except for bicarb of 15 and again worsening renal profile BUN is up to 71 creatinine 4.40 Progress note dated September 09, 2023. This is a 63-year-old male, who was seen today in room 266. The patient is status post three-vessel bypass grafting. He went to the operating room on September 01. He is currently on room air. He is receiving insulin at 2 units an hour. In addition, the patient is getting lactated Ringer's at 30 cc an hour, and dobutamine at 2.5 mcg/kg/min. The patient will have hemodialysis for the first time today. Current labs include a white count 6.8, hemoglobin 8.1, hematocrit 24.9, and a platelet count of 105,000. Sodium 135, potassium 4.6, chlorides 107, CO2 12, anion gap 16, BUN 79, creatinine 5.27. Glucose is 141. Calcium 7.6. AST is 300. ALT is 155. Albumin is 2.8. Chest x-ray shows cardiomegaly, with bilateral pleural effusions. Progress note dated September 10, 2023. This is a 63-year-old male who is seen in room 266. Currently, the patient is on room air. The patient is getting insulin drip at 3 units an hour, and continues on dobutamine for cardiovascular support at 5 mcg/kg/min. The patient is still not very motivated, to improve his overall clinical situation. He does poorly on his incentive spirometer. Current laboratory data includes a white count 8.7, hemoglobin 10 hematocrit 30.4, platelet count 119,000. Sodium 135, potassium 4.5, chlorides 104, CO2 14, anion gap 17, BUN 63, and creatinine 4.33. The most recent glucose was 127. AST is 200, ALT 141. Albumin 2.8. Calcium 7.6. The patient's chest x-ray shows some postoperative changes, but has been relatively stable. Progress note dated September 11, 2023. The patient is seen today in room 266. He is currently undergoing hemodialysis. The goal of hemodialysis today is removal of 1 L of fluid. Patient is on room air. The patient is getting saline at 20 cc an hour. The patient continues on dobutamine, for cardiovascular support at 2.5 mcg/kg/min. Current labs include a white count 11.9, hemoglobin 9.5, hematocrit 29.6, and a platelet count of 128,000. Sodium 132, potassium 4.3, chlorides 101, CO2 12, anion gap 19, BUN 53, creatinine 3.70. AST is 102. ALT is 100. Albumin is 2.8. Today's chest x-ray is very stable, and comparable to the x-ray done yesterday. Progress note dated September 12, 2023. The patient is again seen in room 266. Currently, the patient is doing about the same. The patient is on room air. He is getting saline at 20 cc an hour. He will have a permanent hemodialysis catheter placed today. Labs today include a white count 18, hemoglobin 9.8, hematocrit 30.3, and a platelet count of 142,000. Sodium 131, potassium 3.8, chlorides 99, CO2 20, BUN 46, creatinine 2.99. Glucose of 66. Albumin 2.8. The rest of the labs are reviewed. Chest x-ray shows postoperative changes, and persistent right pleural effusion with basilar atelectasis. Progress note dated September 13, 2023. The patient is seen today in room 266. Currently, the patient is on room air. He is getting saline at 20 cc an hour. The patient did have hemodialysis yesterday, and 2 L was removed. This was on September 11. The patient was to have a permanent hemodialysis catheter placed, but he apparently refused it. Current labs include a white count 23.8, hemoglobin 10, hematocrit 31.1, and platelet count 80,000. Sodium 129, potassium 3.9, chlorides 95, CO2 22, BUN 39, creatinine 3.0. Glucose was 126. Calcium 7.8. Total bilirubin 2.3. Albumin is 2.9. No chest x-ray today. Progress note dated September 14, 2023. The patient is again seen today in room 266. Currently he is on room air. The patient is not receiving any IV fluids. He did have hemodialysis yesterday. 1 L was removed, on September 12. He has no specific complaints today. Still doing very poorly on his incentive spirometer. Current labs include a white count 27.2, hemoglobin 9.7, hematocrit 31, and platelet count 69,000. Sodium 129, potassium 4.1, chloride 95, CO2 21, BUN 40, creatinine 2.83. Glucose is 207. Calcium 7.7. Phosphorus 4.7. Magnesium 1.9. Albumin 2.9. Chest x-ray shows some mild fluid overload. The chest x-ray is essentially unchanged. Progress note dated September 15, 2023. The patient is seen today in room 266. Currently he is on room air. He is not requiring any IV fluids. The patient did have hemodialysis yesterday, and 2 L was removed. The patient will have a permanent hemodialysis catheter placed tomorrow. Current labs include a white count 21.9, hemoglobin 10, hematocrit 32.7, and a platelet count of 73,000. Sodium 130, potassium 3.7, chlorides 97, CO2 25, BUN 37, and creatinine 2.58. Albumin is 2.7. Glucose is 128. Urine culture shows evidence of gram-negative bacilli. He was placed on Rocephin yesterday. Chest ultrasound shows a small 4.5 cm pocket on the right. Chest x- ray shows postsurgical changes, and a small right-sided pleural effusion. On today's evaluation on 09/16/2023, the patient is resting comfortably on a c hair. The patient is calm and comfortable. No significant events overnight. The patient is having a low urine output and the patient is going to undergo a permacath insertion today. The patient is calm and comfortable without any signs of respiratory distress. He is using incentive spirometer and pulling approximately 500. He remains in normal sinus rhythm. The chest x-ray is showing postsurgical changes with small bilateral pleural effusions. Hobson catheter still in place. Urine culture is showing E. coli and the patient remains on IV Rocephin. The patient's white cell count is at 15.5 with a hemoglobin of 9.7 and a platelet count of 109. Sodium is at 132, potassium is 3.6, BUN is 48 with a creatinine of 3.34 which is slightly higher compared to yesterday. The patient remains on aspirin, patient is also on metoprolol 12.5 mg p.o. twice a day. He is on Levemir insulin 50 units along with sliding scale insulin coverage. He is on oral bicarb supplements. The patient is currently postop day #15 following a three-vessel bypass surgery. The patient sustained an acute kidney injury postop requiring dialysis. He did not also encountered cardiogenic shock which essentially recovered. Objective - Vital Signs Vital signs: Vital Signs Temp 97.6 F 09/16/23 08:00 Pulse 79 09/16/23 08:00 Resp 16 09/16/23 08:00 BP 116/60 09/16/23 08:00 Pulse Ox 99 09/16/23 08:00 FiO2 40 09/02/23 20:33 Intake & Output 09/15/23 09/16/23 09/16/23 18:59 06:59 18:59 Intake Total 850 Output Total 60 160 30 Balance 790 -160 -30 Intake: IV 50 cefTRIAXone 2 gm In 50 Sodium Chloride 0.9% 50 ml @ 100 mls/hr IVPB Q24HR [facility] Rx#:[id number] Oral 800 Output: Urine 60 160 30 Other: Voiding Method Indwelling Catheter Indwelling Catheter ABP, PAP, CO, CI - Last Documented Arterial Blood Pressure 83/58 Pulmonary Artery Pressure 45/17 Cardiac Output 3.5 Cardiac Index 2 - Exam No acute distress, oriented 3. Currently on room air. HEENT examination is grossly unremarkable. Mucous membranes are moist. No oral lesions. Neck supple. Full range of motion. No adenopathy thyromegaly or neck vein distention. Cardiovascular examination reveals regular rhythm rate. S1-S2 normal. No S3 or S4. No discernible murmur noted. Heart sounds are distant. Lungs reveal scattered rhonchi. No wheezes or crackles. Breath sounds equal bilaterally. Abdomen soft, but obese, with bowel sounds. No masses or tenderness. Extremities are intact. No cyanosis clubbing or edema. Skin is without rash or lesion. Neurologic examination is brief but nonfocal. - Labs CBC & Chem 7: 09/16/23 03:48 09/16/23 03:48 Labs: Abnormal Lab Results - Last 24 Hours (Table) 09/15/23 09/15/23 09/15/23 Range/Units 11:15 16:38 19:58 WBC (3.8-10.6) k/uL RBC (4.30-5.90) m/uL Hgb (13.0-17.5) gm/dL Hct (39.0-53.0) % RDW (11.5-15.5) % Plt Count (150-450) k/uL Neutrophils # (1.3-7.7) k/uL Sodium (137-145) mmol/L Chloride (98-107) mmol/L BUN (9-20) mg/dL Creatinine (0.66-1.25) mg/dL Glucose (74-99) mg/dL POC Glucose (mg/dL) 164 H 221 H 181 H (70-110) mg/dL Calcium (8.4-10.2) mg/dL Alkaline Phosphatase (38-126) U/L Total Protein (6.3-8.2) g/dL Albumin (3.5-5.0) g/dL 09/16/23 09/16/23 Range/Units 03:48 03:48 WBC 15.5 H (3.8-10.6) k/uL RBC 3.07 L (4.30-5.90) m/uL Hgb 9.7 L (13.0-17.5) gm/dL Hct 30.5 L (39.0-53.0) % RDW 17.4 H (11.5-15.5) % Plt Count 109 L (150-450) k/uL Neutrophils # 12.7 H (1.3-7.7) k/uL Sodium 132 L (137-145) mmol/L Chloride 96 L (98-107) mmol/L BUN 48 H (9-20) mg/dL Creatinine 3.34 H (0.66-1.25) mg/dL Glucose 109 H (74-99) mg/dL POC Glucose (mg/dL) (70-110) mg/dL Calcium 7.8 L (8.4-10.2) mg/dL Alkaline Phosphatase 183 H (38-126) U/L Total Protein 5.5 L (6.3-8.2) g/dL Albumin 2.8 L (3.5-5.0) g/dL Microbiology - Last 24 Hours (Table) 09/14/23 11:40 Urine Culture - Preliminary Urine,Voided Gram Neg Bacilli 09/13/23 07:45 Urine Culture - Final Urine,Voided Escherichia coli Assessment and Plan Plan: Multivessel coronary artery disease and the patient is S/P three-vessel bypass grafting. Patient is postop day #13 Postthoracotomy and the surgical wound is clean and the patient's chest rhythm removed. Small bilateral pleural effusions on follow-up chest x-ray. Chronic systolic CHF, with an ejection fraction of 30 to 35%. Cardiogenic shock and severe LV dysfunction, recovered Acute kidney injury, requiring hemodialysis and the patient will need a permacath insertion. Nephrology on the case. Gram-negative bacillary urinary tract infection. Patient has a Hobson catheter in place and the patient is on IV Rocephin Peripheral vascular disease. Type 2 diabetes mellitus. Essential hypertension. Hyperlipidemia. History of developmental delay. Bipolar disorder. Chronic anxiety. Prior history of tobacco use. Plan: The patient will continue aggressive pulmonary toileting and using the incentive spirometer on daily basis. Moderate bilateral pleural effusions Start the patient on metoprolol 12.5 mg twice a day Continue aspirin and Plavix A permacath insertion today. Avoid nephrotoxic agents Hobson catheter will be kept in place pending urology consultation Continue IV Rocephin regarding E. coli urinary tract infection Hemodialysis per nephrology Continue midodrine 5 mg p.o. 3 times daily Statins are on hold based on some disturbances in his liver function test Will continue to follow
[2023-09-16] MEDS: METOPROLOL TARTRATE 12.5 MG TAB PO SCH (11:23)
--- NOTE | 2023-09-16 11:45 | P.PN ---
Subjective Progress Note Date: 09/16/23 63-year-old gentleman with past medical history significant for coronary artery disease, chronic congestive heart failure with ejection fraction of 30%, hypertension hyperlipidemia diabetes mellitus obesity bipolar disorder cardiomyopathy developmental delay history of nicotine dependence who has been admitted with shortness of breath and lower extremity edema. Patient underwent cardiac catheterization right heart catheterization and intra-aortic balloon pump. * Patient has comorbidities including diabetes mellitus type 2, peripheral arterial disease, bipolar disorder, history of anxiety. * Patient to undergo myocardial revascularization 09/02/2023. * 09/03/23 : Patient admitted to medical ICU. Patient was successfully extubated postprocedure. S/p intra-aortic balloon pump which remains in place through right femoral access. Patient remains on norepinephrine drip, Primacor drip, vasopressin. Bilateral chest tubes remained in place. Followed up by medical ICU and cardiac surgery. Follow-up blood work obtained including WBC 15.2 hemoglobin 9.2 platelet count of 98, serum chemistry sodium 141 potassium 4.7 carbon dioxide 24 BUN 26 creatinine 1.1 blood glucose 118-1 33 * 09/04/23: Patient seen and evaluated in medical ICU room 266, patient continues to remain on Levophed, vasopressin and pressor support. Blood work reviewed WBC 17.7 hemoglobin 9.4 platelet 117. Serum chemistry showed sodium 137 potassium 4.9 carbon dioxide 18 BUN 34 creatinine 1.52 blood glucose 123. Overnight patient was refusing to participate with care, patient counseled by cardiac surgery team as well. Brother at bedside, patient does follow commands, care plan discussed with nursing staff * 09/05/23: Patient seen and evaluated bedside, vitals reviewed blood pressure running in the 90s overnight. Patient remains on 2 L of oxygen. Blood work reviewed CBC shows WBC 14.3 hemoglobin 9.3 platelet 105 serum chemistry sodium 137 potassium 5.2 carbon dioxide 16 BUN 44 creatinine 1.99 total bilirubin 1.3 AST 464 ALT 128 will need to be monitored, p.atient remains lethargic however easily arousable 09/06/2023 -- Patient is seen and evaluated in ICU at bedside Vital signs reviewed and temperature of 97.9, pulse 90, respiration 14 and blood pressure of 110/40 Lab review shows WBC 14.2, hemoglobin of 8.7 and platelet count of 109, sodium 136, potassium 4.8, BUNs/creatinine of 54/2.91; concern about worsening renal function likely related to cardiorenal syndrome; dopamine has been discontinued Chest x-ray reveals atelectasis and bibasilar pleural effusion --Patient remains on pressors and inotropic agents; cardiac index and cardiac output is being monitored closely -Patient remains on Plavix, aspirin, statins and beta-blockers -- Recommended to increase activity 09/07/2023 ---patient is basically about the same, he is now postoperative day #5, sitting at the bedside chair, patient is not motivated what bit remains on multiple inotropes and pressors, patient is receiving dopamine at 2.5 mcg/kg/min dobutamine at 5 mcg/kg/min norepinephrine at 0.06 mcg/kg/min vasopressin at 0.03 units/min and he is also on insulin at 3.5 units/h today he is off milrinone. Chest x-ray showed mostly atelectasis at the bases. No clear-cut evidence of pulmonary edema. Patient is maintained on 2 L nasal cannula, again the patient is doing extremely poorly with incentive spirometry and does not seem to be mot ivated at all. Renal functioning seems to be getting worse, his BUN is 63 creatinine 3.54, at this rate I am quite concerned with the patient may end up requiring hemodialysis. This is being addressed by nephrology on the case. Liver enzymes are improving Continue pressors and inotropes continue to monitor cardiac index and cardiac output Continue dopamine, continue dobutamine, patient is off milrinone today. However he is still requiring norepinephrine and vasopressin Continue Plavix beta-blockers aspirin and statin Titrate pressors and inotropes as tolerated 09/08/2023 --patient is seen and evaluated with family at bedside; now postoperative day #6. -- Patient is still requiring dobutamine at 0.5 mcg/kg/min, still requiring vasopressin at 0.02 units/min, his norepinephrine is presently on hold, and milrinone was discontinued. Still on insulin at 3 units/h. -- chest x-ray is showing bibasilar atelectasis and small left pleural effusion with a small right pleural effusion -- WBC count is 6 hemoglobin 8.7 basic metabolic profile is normal except for b icarb of 15 and again worsening renal profile BUN is up to 71 creatinine 4.40 -Renal function continues to worsen; nephrology on board and planning to continue with IV Lasix and oral sodium bicarbonate; plan for possible hemodialysis in a.m. if urine output does not improve 09/09/2023 Patient is awake alert but looks very tired and lethargic lying in chair. No significant chest pain. Patient has average appetite No significant dyspnea but looks very weak Patient required pressors Patient planned and considered for hemodialysis given his worsening renal function today 5.2 compared with 1.5 upon admission He has severe cardiomyopathy with ejection fraction 20 to 25% and currently on aspirin and Plavix and amiodarone drip. Also he required pressors as above, cardiology following closely. 09/10/2023 Patient still lethargic still sitting in chair No much difference clinically from yesterday A plan to undergo hemodialysis today for first-line, hemodialysis catheter in place. Patient is oliguric. He is currently getting dobutamine and insulin drip 3 units/h He is also on aspirin and Plavix and metoprolol 09/11/2023 Patient remains very lethargic No new complaint He remains on dobutamine drip at 2.5 He is getting the third round of hemodialysis today His insulin drip switched to sliding scale and Levemir Continue with dual antiplatelet therapy Labs showing stable hemoglobin 9.5. Platelet 1 28,000 09/12/2023 Patient looks more awake and alert today, he still generally weak sitting up in chair. No chest pain no dyspnea, no other specific complaint he Is getting hemodialysis. Creatinine down to 2.9. Hemoglobin stable, platelet count stable. He was started on Levemir 14 and twice daily yesterday, his sugar was on the low side this morning therefore we are going to lower the dose to Levemir 15 units at bedtime with close monitoring. Started also on sodium bicarb 09/13. Patient seen and examined. Vital signs this morning WNL at 76, heart rate 115, respiratory rate. 14, blood pressure 118/71.Lab work done showed WBC 27.2, hemoglobin 9.7, platelet count 69, sodium 128, potassium 4.1, BUN 40, creatinine 2.83. Patient getting dialysis today. Currently not requiring any oxygen. 09/14. Patient seen and examined. Sitting upright in the chair. Labs done this morning showed WBC 21.9 hemoglobin 10, platelet count 73, sodium 130, potassium 3.7, BUN 37, creatinine 2.58. Currently on IV Rocephin for UTI 09/15. Patient seen and examined.Blood work done this morning showed WBC 15.5, hemoglobin 9.7, platelet count 109, sodium 132, potassium 3.6, BUN 40, creat inine 3.43. Patient scheduled for permacath placement today REVIEW OF SYSTEMS: CONSTITUTIONAL: No fever, no malaise,. CARDIOVASCULAR: No chest pain, no palpitations, no syncope. PULMONARY: No shortness of breath, no cough, GASTROINTESTINAL: No diarrhea, no nausea, no vomiting, no abdominal pain. NEUROLOGICAL: No headaches, no weakness, PHYSICAL EXAMINATION: GENERAL: The patient is alert, not in any acute distress. Well developed, well nourished. HEENT: Pupils are round and equally reacting to light. EOMI. No scleral icterus. No conjunctival pallor. Normocephalic, atraumatic. No pharyngeal erythema. No thyromegaly. CARDIOVASCULAR: S1 and S2 present. No murmurs, rubs, or gallops. PULMONARY: Chest is clear to auscultation, no wheezing or crackles. ABDOMEN: Soft, nontender, nondistended, normoactive bowel sounds. No palpable organomegaly. MUSCULOSKELETAL: No joint swelling or deformity. EXTREMITIES: No cyanosis, clubbing, or pedal edema. NEUROLOGICAL: Gross neurological examination did not reveal any focal deficits. SKIN: No rashes. Assessment and plan Acute on chronic systolic ejection of congestive heart failure with ejection fraction worsened 35% down to 25% S/P three-vessel bypass grafting. UTI Postoperative hypoxic respiratory failure Cardiogenic shock Acute kidney injury requiring hemodialysis Peripheral vascular disease Hypertension Hyperlipidemia Diabetes mellitus Bipolar disorder Monitor vital signs Monitor CBC Monitor CMP Continue telemetry monitoring Encourage use of incentive spirometer Status post coronary artery bypass surgery on 09/02/2023 started on hemodialysis on 09/09/2023 for severe progressive ATN Continue aspirin, Plavix Continue Lopressor, Monitor blood sugar levels, continue current regimen of insulin Snedani88 units at nighttime and sliding scale insulin Continue breathing treatments Continue IV Rocephin Patient scheduled for permacatheter placement today Nephrology following Critical care following CT surgery following Labs and medication were reviewed.. Continue same treatment. Continue with symptomatic treatment. Resume home medication. Monitor labs and vitals. DVT and GI prophylaxis. Further recommendations as per clinical course of the patient Dictation was produced using [employer] dictation software. please excuse any grammatical, word or spelling errors. Objective - Vital Signs Vital signs: Vital Signs Temp 97.6 F 09/16/23 08:00 Pulse 83 09/16/23 11:00 Resp 26 H 09/16/23 11:00 BP 119/65 09/16/23 11:00 Pulse Ox 96 09/16/23 10:00 FiO2 40 09/02/23 20:33 Intake & Output 09/15/23 09/16/23 09/16/23 18:59 06:59 18:59 Intake Total 850 50 Output Total 60 160 80 Balance 790 -160 -30 Intake: IV 50 50 cefTRIAXone 2 gm In 50 50 Sodium Chloride 0.9% 50 ml @ 100 mls/hr IVPB Q24HR [facility] Rx#:[id number] Oral 800 Output: Urine 60 160 80 Other: Voiding Method Indwelling Catheter Indwelling Catheter ABP, PAP, CO, CI - Last Documented Arterial Blood Pressure 83/58 Pulmonary Artery Pressure 45/17 Cardiac Output 3.5 Cardiac Index 2 - Labs CBC & Chem 7: 09/16/23 03:48 09/16/23 03:48 Labs: Abnormal Lab Results - Last 24 Hours (Table) 09/15/23 09/15/23 09/16/23 Range/Units 16:38 19:58 03:48 WBC 15.5 H (3.8-10.6) k/uL RBC 3.07 L (4.30-5.90) m/uL Hgb 9.7 L (13.0-17.5) gm/dL Hct 30.5 L (39.0-53.0) % RDW 17.4 H (11.5-15.5) % Plt Count 109 L (150-450) k/uL Neutrophils # 12.7 H (1.3-7.7) k/uL Sodium (137-145) mmol/L Chloride (98-107) mmol/L BUN (9-20) mg/dL Creatinine (0.66-1.25) mg/dL Glucose (74-99) mg/dL POC Glucose (mg/dL) 221 H 181 H (70-110) mg/dL Calcium (8.4-10.2) mg/dL Alkaline Phosphatase (38-126) U/L Total Protein (6.3-8.2) g/dL Albumin (3.5-5.0) g/dL 09/16/23 Range/Units 03:48 WBC (3.8-10.6) k/uL RBC (4.30-5.90) m/uL Hgb (13.0-17.5) gm/dL Hct (39.0-53.0) % RDW (11.5-15.5) % Plt Count (150-450) k/uL Neutrophils # (1.3-7.7) k/uL Sodium 132 L (137-145) mmol/L Chloride 96 L (98-107) mmol/L BUN 48 H (9-20) mg/dL Creatinine 3.34 H (0.66-1.25) mg/dL Glucose 109 H (74-99) mg/dL POC Glucose (mg/dL) (70-110) mg/dL Calcium 7.8 L (8.4-10.2) mg/dL Alkaline Phosphatase 183 H (38-126) U/L Total Protein 5.5 L (6.3-8.2) g/dL Albumin 2.8 L (3.5-5.0) g/dL Microbiology - Last 24 Hours (Table) 09/14/23 11:40 Urine Culture - Preliminary Urine,Voided Gram Neg Bacilli 09/13/23 07:45 Urine Culture - Final Urine,Voided Escherichia coli
[2023-09-16 12:08] LABS: Glucose,Whole Blood 86 mg/dL (70-110)
[2023-09-16] MEDS ORDERED: MIDAZOLAM 2 MG/2 ML VIAL ONE (14:47)
[2023-09-16] MEDS ORDERED: ETOMIDATE 2 MG/ML 10 ML VIAL ONE (14:47)
[2023-09-16] MEDS ORDERED: LIDOCAINE 1% INJ 10MG/ML (20 ML MDV) ONE (14:47)
[2023-09-16] MEDS ORDERED: fentaNYL (PF) 50 MCG/ML 2 ML AMP ONE (14:47)
[2023-09-16] MEDS ORDERED: PHENYLEPHRINE 10 MG/ML VIAL ONE (14:47)
[2023-09-16] MEDS: LACTATED RINGERS 1,000 ML IV ONE (14:52)
--- NOTE | 2023-09-16 15:00 | P.PN ---
Subjective Progress Note Date: 09/16/23 the patient is a 63-year-old male who is currently admitted after undergoing coronary bypass. the patient is currently on hemodialysis and had a PermCath placed for long-term management.no complications overnight according to nursing staff. Patient was interviewed and examined sitting up in a recliner chair. He denies any current pain or shortness of breath. He is confused and disoriented at the time of my exam. GENERAL: Well-appearing, well-nourished and in no acute distress. NECK: Supple without JVD or thyromegaly. LUNGS: Breath sounds diminished to auscultation bilaterally. Respiration equal a nd unlabored. find crackles noted in the lung bases HEART: Regular rate and rhythm without murmurs, rubs or gallops. S1 and S2 heard. heart hugger in place. EXTREMITIES: Normal range of motion, +2 lower extremity pitting edema. No clubbing or cyanosis. Peripheral pulses intact and strong. TELEMETRY: sinus rhythm overnight IMPRESSION: multivessel coronary artery disease Status post coronary bypass End-stage renal disease, on dialysis Urinary tract infection PLAN: continue supportive treatment including aggressive pulmonary hygiene Encourage ambulation Further recommendations based on clinical course I am dictating on behalf of Dr Rome Bates's history/physical and assessment/plan. Objective - Vital Signs Vital signs: Vital Signs Temp 97.6 F 09/16/23 08:00 Pulse 79 09/16/23 08:00 Resp 16 09/16/23 08:00 BP 116/60 09/16/23 08:00 Pulse Ox 99 09/16/23 08:00 FiO2 40 09/02/23 20:33 Intake & Output 09/15/23 09/16/23 09/16/23 18:59 06:59 18:59 Intake Total 850 Output Total 60 160 30 Balance 790 -160 -30 Intake: IV 50 cefTRIAXone 2 gm In 50 Sodium Chloride 0.9% 50 ml @ 100 mls/hr IVPB Q24HR [facility] Rx#:[id number] Oral 800 Output: Urine 60 160 30 Other: Voiding Method Indwelling Catheter Indwelling Catheter ABP, PAP, CO, CI - Last Documented Arterial Blood Pressure 83/58 Pulmonary Artery Pressure 45/17 Cardiac Output 3.5 Cardiac Index 2 - Labs CBC & Chem 7: 09/16/23 03:48 09/16/23 03:48 Labs: Abnormal Lab Results - Last 24 Hours (Table) 09/15/23 09/15/23 09/15/23 Range/Units 11:15 16:38 19:58 WBC (3.8-10.6) k/uL RBC (4.30-5.90) m/uL Hgb (13.0-17.5) gm/dL Hct (39.0-53.0) % RDW (11.5-15.5) % Plt Count (150-450) k/uL Neutrophils # (1.3-7.7) k/uL Sodium (137-145) mmol/L Chloride (98-107) mmol/L BUN (9-20) mg/dL Creatinine (0.66-1.25) mg/dL Glucose (74-99) mg/dL POC Glucose (mg/dL) 164 H 221 H 181 H (70-110) mg/dL Calcium (8.4-10.2) mg/dL Alkaline Phosphatase (38-126) U/L Total Protein (6.3-8.2) g/dL Albumin (3.5-5.0) g/dL 09/16/23 09/16/23 Range/Units 03:48 03:48 WBC 15.5 H (3.8-10.6) k/uL RBC 3.07 L (4.30-5.90) m/uL Hgb 9.7 L (13.0-17.5) gm/dL Hct 30.5 L (39.0-53.0) % RDW 17.4 H (11.5-15.5) % Plt Count 109 L (150-450) k/uL Neutrophils # 12.7 H (1.3-7.7) k/uL Sodium 132 L (137-145) mmol/L Chloride 96 L (98-107) mmol/L BUN 48 H (9-20) mg/dL Creatinine 3.34 H (0.66-1.25) mg/dL Glucose 109 H (74-99) mg/dL POC Glucose (mg/dL) (70-110) mg/dL Calcium 7.8 L (8.4-10.2) mg/dL Alkaline Phosphatase 183 H (38-126) U/L Total Protein 5.5 L (6.3-8.2) g/dL Albumin 2.8 L (3.5-5.0) g/dL Microbiology - Last 24 Hours (Table) 09/14/23 11:40 Urine Culture - Preliminary Urine,Voided Gram Neg Bacilli 09/13/23 07:45 Urine Culture - Final Urine,Voided Escherichia coli
[2023-09-16] MEDS: SODIUM CHLORIDE 0.9% 50 ML with ceFAZolin 1,000 MG IV ONE (15:10)
[2023-09-16] MEDS: LIDOCAINE 1% INJ 10MG/ML (20 ML MDV) SQ ONE (15:13)
--- NOTE | 2023-09-16 15:36 | P.OP ---
Date of Procedure: 09/16/23 Preoperative Diagnosis: CAD s/p CABG ARF s/p CABG CHF HTN HLD DM Boipolar Disorder Postoperative Diagnosis: Same Procedure(s) Performed: Insertion of Perma-Cath via Right Subclavian Vein Implants: Perma-Cath Anesthesia: MAC Surgeon: Everett Weller Estimated Blood Loss (ml): 25 Pathology: none sent Condition: stable Disposition: ICU Indications for Procedure: This patient is a 63 year-old M who underwent CABG x 3 this admission. His post- operative course was complicated by acute renal failure requiring hemodialysis. His kidneys have shown some recovery however he needs dialsysis access prior to discharge from hospital. Operative Findings: Catheter tip confirmed in cavo-atrial junction using flouroscopy Description of Procedure: The patient was brought back to the operating room and placed in the supine position. He was intubated with LMA and his right neck and chest were prepped and draped in the usual sterile fashion. Antibiotics were given. The needle was used to gain access into the right subclavian vein. Guidewire was inserted and position checked under flouroscopy. Incision was made over the wire and counter incision was made inferiorly. The catheter was tunneled and the peel away sheath was inserted over the wire under flouroscopic vision. The wire was removed and the catheter was threaded into the peel-away sheath. Position was confirmed using x-ray. The skin was closed using 4-0 monocryl.
[2023-09-16 16:08] LABS: Glucose,Whole Blood 102 mg/dL (70-110)
[2023-09-16 17:16] LABS: Glucose,Whole Blood 97 mg/dL (70-110)
--- NOTE | 2023-09-16 17:24 | XR ---
EXAMINATION TYPE: XR chest 1V portable DATE OF EXAM: 09/16/2023 4:36 PM CLINICAL INDICATION:Male, 63 years old with history of Post permacath placement; [facility] COMPARISON: Chest radiographs from 09/16/2023. TECHNIQUE: XR chest 1V portable Frontal view of the chest. FINDINGS: Lungs/Pleura: No evidence of focal consolidation or pneumothorax. Blunting of the costophrenic angles is present. Pulmonary vascularity: Pulmonary vascular congestion. Heart/mediastinum: Cardiomediastinal silhouette is enlarged and stable. Left atrial appendage occlusi on device is present. Musculoskeletal: No acute osseous pathology. Other findings: None Lines/Tubes: Right central venous catheter with distal tip at the cavoatrial junction. IMPRESSION: 1. Right central venous catheter with distal tip at the cavoatrial junction. 2. Evidence for congestive heart failure/volume overload.
--- NOTE | 2023-09-16 17:35 | FL ---
EXAMINATION TYPE: FL guided central line placemt Intraoperative/procedural fluoroscopic services were provided. CLINICAL INDICATION:Male, 63 years old with history of I50.22 CHRONIC SYSTOLIC (CONGESTIVE) HEART SERGIO LURE; , [facility] Total fluoroscopy time is 9 SECONDS min. DAP: DAP:0.4342. Gycm2 uGym2 Please see the operative/procedural note for further details.
[2023-09-16 20:11] LABS: Glucose,Whole Blood 172 mg/dL (70-110)
[2023-09-16 21:05] LABS: Glucose,Whole Blood 166 mg/dL (70-110)
[2023-09-16] MEDS: MIDODRINE 5 MG TAB PO STA (21:11)
[2023-09-17] MEDS ORDERED: DESMOPRESSIN ACETATE 4 MCG/ML VIAL (MDV) IV STA (00:21)
[2023-09-17] MEDS: DESMOPRESSIN ACETATE 27 MCG in SODIUM CHLORIDE 0.9% 50 ML IVPB ONE (01:03)
[2023-09-17 05:12] LABS: Anisocytosis Slight; Basophils # (A) 0.1 k/uL (0-0.2); Basophils % (A) 0 %; Eosinophils # (A) 0.2 k/uL (0-0.7); Eosinophils % (A) 1 %; HCT 28.7 % (39.0-53.0); HGB 8.8 gm/dL (13.0-17.5); Hypochromasia Moderate; Lymphocytes % (A) 6 %; MCH 30.7 pg (25.0-35.0); MCHC 30.5 g/dL (31.0-37.0); MCV 100.7 fL (80.0-100.0); Macrocytosis Slight; Mean Platelet Volume 8.9; Monocytes # (A) 0.7 k/uL (0-1.0); Monocytes % (A) 4 %; Neutrophils # (A) 15.2 k/uL (1.3-7.7); Neutrophils % (A) 88 %; Platelet Count 123 k/uL (150-450); RBC 2.85 m/uL (4.30-5.90); RDW 16.9 % (11.5-15.5); WBC 17.3 k/uL (3.8-10.6)
[2023-09-17 05:27] LABS: African American GFR (CKD) 33 (>60 ml/min/1.73 sqM); Anion Gap 10 mmol/L; Blood Urea Nitrogen 35 mg/dL (9-20); Calcium 7.6 mg/dL (8.4-10.2); Carbon Dioxide 24 mmol/L (22-30); Chloride 98 mmol/L (98-107); Glucose 185 mg/dL (74-99); Non-African American GFR(CKD) 29 (>60 ml/min/1.73 sqM); Potassium 3.6 mmol/L (3.5-5.1); Sodium 132 mmol/L (137-145)
[2023-09-17 06:24] LABS: Glucose,Whole Blood 188 mg/dL (70-110)
--- NOTE | 2023-09-17 08:06 | XR ---
EXAMINATION TYPE: XR chest 1V portable DATE OF EXAM: 09/17/2023 COMPARISON: 09/16/2023 HISTORY: Shortness of breath TECHNIQUE: Single frontal view of the chest is obtained. FINDINGS: Right-sided dialysis catheter the tip overlying the right atrium. Diffuse interstitial pat tern, bilateral consolidation and pleural effusion. Postsurgical changes. Arthropathy of the shoulder s. Osseous structures are stable. IMPRESSION: CHF stable in appearance.
--- NOTE | 2023-09-17 08:17 | P.PN ---
Subjective Progress Note Date: 09/17/23 Principal diagnosis: Triple-vessel coronary artery disease with left main disease. Past medical history significant for hypertension, hyperlipidemia, diabetes mellitus, chronic systolic heart failure with reduced ejection fraction/ischemic cardiomyopathy, bipolar disorder, obesity, peripheral vascular disease, developmental delay, previous tobacco dependence, noncompliance POD #16 right heart catheterization, ultrasound guided access, placement of intra-aortic balloon pump from right femoral access performed by Dr. Monreal. POD #15 on pump coronary artery bypass grafting x 3, left internal thoracic artery (in-situ) sequential to diagonal and left anterior descending coronary artery, right greater saphenous vein from aorta to obtuse marginal artery #1, left atrial appendage ligation with #35mm AtriClip, endoscopic bilateral greater saphenous vein harvest, graft flow measurements using the [employer] flow meter system, trans-esophageal echo Postoperative acute blood loss anemia and thrombocytopenia, expected given hemodilution and cardiopulmonary bypass LEONARDO, status post placement of temp dialysis cath. POD #1 Insertion of Perma-Cath via Right Subclavian Vein. Elevated transaminases, likely due to hypoperfusion, resolved Cardiogenic shock, resolved The patient was seen and examined in follow-up today September 17, 2023 at his bedside in the intensive care unit. He is currently sitting up to the bedside chair, is awake, alert, oriented x 3 and is in no acute apparent distress. He denies any complaints of pain or shortness of breath at this time. He is tolerating his breakfast. He underwent an insertion of permacath dialysis catheter yesterday and tolerated well. He underwent hemodialysis last evening with 1878 mL ultrafiltration completed. Oxygen saturations are 94% on room air and he is achieving 500 mL on his incentive spirometry with much encouragement. Bedside telemetry is showing normal sinus rhythm heart rate 82 bpm. He remains hemodynamically stable and is currently on no inotropic or pressor support. Patient is in good spirits today. Urine culture is showing Escherichia coli, he continues on Rocephin for antibiotic coverage. Hobson catheter remains in place per urology recommendations for urine retention. Chest x-ray and laboratory results reviewed. Objective - Vital Signs Vital signs: Vital Signs Temp 98.7 F 09/17/23 04:00 Pulse 82 09/17/23 07:00 Resp 10 L 09/17/23 07:00 BP 104/50 09/17/23 07:00 Pulse Ox 92 L 09/17/23 05:00 FiO2 40 09/02/23 20:33 Intake & Output 09/16/23 09/17/23 09/17/23 18:59 06:59 18:59 Intake Total 640 550 60 Output Total 335 2088 15 Balance 305 -1538 45 Weight 90 kg Intake: IV 300 50 Desmopressin Acetate 27 50 mcg In Sodium Chloride 0. 9% 50 ml @ 113.5 mls/hr IVPB ONCE ONE Rx#: [id number] cefTRIAXone 2 gm In 50 Sodium Chloride 0.9% 50 ml @ 100 mls/hr IVPB Q24HR [facility] Rx#:[id number] Oral 340 60 Hemodialysis 500 Output: Urine 310 210 15 Hemodialysis 1878 Estimated Blood Loss 25 Other: Voiding Method Indwelling Catheter Indwelling Catheter ABP, PAP, CO, CI - Last Documented Arterial Blood Pressure 83/58 Pulmonary Artery Pressure 45/17 Cardiac Output 3.5 Cardiac Index 2 - Exam CONSTITUTIONAL: Sitting up to the bedside chair in the intensive care unit, appears comfortable, cooperative, no apparent acute distress. HEENT: Neck is supple, no JVD, no lymphadenopathy. RESPIRATORY: Lungs sounds essentially clear throughout, diminished to his bilateral bases. Respirations are symmetrical and nonlabored. Currently on room air with oxygen saturations 94%. Able to achieve 500 mL on his incentive spirometry with encouragement and instruction. Weak cough. CARDIOVASCULAR: Regular rhythm and rate. S1 and S2 present, negative for S3, gallop or murmur. Bedside telemetry showing normal sinus rhythm heart rate 82 bpm. Sternum is stable. Palpable peripheral pulses bilaterally, +1 edema generalized. No calf pain or tenderness noted. Heart hugger in place with patient demonstrating appropriate use with much encouragement. Knee-high VARUN hose and sequential compression devices in place to his bilateral lower extremities. GASTROINTESTINAL: Abdomen soft, nontender, nondistended. Active bowel sounds present 4 quadrants. Tolerating diet. Passing flatus. No guarding or rigidity . Bowel movement yesterday 09/16/2023. GENITOURINARY: Hemodialysis September 16, 2023 with 1887 mL of ultrafiltration completed. Hobson catheter in place for urine retention, urine output in the last 8 hours is 135 mL. INTEGUMENTARY: Skin is warm and dry with no evidence of clubbing or cyanosis. Midline sternal incision clean dry and well approximated, covered with dry intact dressing. Bilateral lower extremity EVH sites well approximated without redness or drainage. Erythema to his coccyx, dressing clean, dry and intact. NEUROLOGIC: Cranial nerves II through XII intact. MUSKULOSKELETAL: Able to move all extremities, strength equal bilaterally, generalized weakness. PSYCHIATRIC: Alert and oriented to person place and disoriented to time, appropriate affect. - Allied health notes Allied health notes reviewed: nursing - Labs CBC & Chem 7: 09/17/23 04:48 09/17/23 04:48 Labs: Abnormal Lab Results - Last 24 Hours (Table) 09/16/23 09/16/23 09/17/23 Range/Units 20:11 21:04 04:48 WBC 17.3 H (3.8-10.6) k/uL RBC 2.85 L (4.30-5.90) m/uL Hgb 8.8 L (13.0-17.5) gm/dL Hct 28.7 L (39.0-53.0) % MCV 100.7 H (80.0-100.0) fL MCHC 30.5 L (31.0-37.0) g/dL RDW 16.9 H (11.5-15.5) % Plt Count 123 L (150-450) k/uL Neutrophils # 15.2 H (1.3-7.7) k/uL Sodium (137-145) mmol/L BUN (9-20) mg/dL Creatinine (0.66-1.25) mg/dL Glucose (74-99) mg/dL POC Glucose (mg/dL) 172 H 166 H (70-110) mg/dL Calcium (8.4-10.2) mg/dL 09/17/23 09/17/23 Range/Units 04:48 06:23 WBC (3.8-10.6) k/uL RBC (4.30-5.90) m/uL Hgb (13.0-17.5) gm/dL Hct (39.0-53.0) % MCV (80.0-100.0) fL MCHC (31.0-37.0) g/dL RDW (11.5-15.5) % Plt Count (150-450) k/uL Neutrophils # (1.3-7.7) k/uL Sodium 132 L (137-145) mmol/L BUN 35 H (9-20) mg/dL Creatinine 2.37 H (0.66-1.25) mg/dL Glucose 185 H (74-99) mg/dL POC Glucose (mg/dL) 188 H (70-110) mg/dL Calcium 7.6 L (8.4-10.2) mg/dL Microbiology - Last 24 Hours (Table) 09/14/23 11:40 Urine Culture - Final Urine,Voided Escherichia coli - Imaging and Cardiology Chest x-ray: report reviewed, image reviewed Assessment and Plan Assessment: Multivessel coronary artery disease with left main disease, status post three- vessel on pump coronary artery bypass grafting surgery Chronic systolic congestive heart failure with an ejection fraction of 30 to 35%, status post preoperative intra-aortic balloon pump placement Cardiomyopathy Hypertension, currently on midodrine for blood pressure support Hyperlipidemia Diabetes mellitus type 2, with hemoglobin A1c 10.9 in April 2023, preoperative hemoglobin A1c 7.4% on September 01, 2023 Peripheral arterial disease, recent ABIs to right 0.95 and left 0.97 Bilateral pleural effusions on July 16, 2023 CT scan of the chest Obesity with a BMI of 32.7 kg/m Bipolar disorder Developmentally delayed Anxiety History of noncompliance with medical therapy Remote history of nicotine dependence quit smoking over 20 years ago, with an FEV1 of 55% of predicted value and a base volume of 1.43 Postoperative acute blood loss anemia and thrombocytopenia, expected Incidental finding of tiny left pneumothorax, not a complication, resolved Acute kidney injury, status post dialysis cath placement, status post insertion of permacath Elevated transaminase and cardiogenic shock, likely from hypoperfusion, resolved Leukocytosis, positive urine culture for Escherichia coli Medical debility Plan: Continue aspirin, Plavix, and statin. Continue metoprolol tartrate 12.5 mg p.o. twice daily with hold parameters. Continue midodrine 5 mg p.o. 3 times daily per cardiology management. Encourage use of incentive spirometry 10 times every hour while awake. Bronchodilators per pulmonology. Increase activity, ambulate as tolerated. PT/OT/cardiac rehab following. Will monitor daily labs and chest x-rays. Hemodialysis recommendations per nephrology. Avoid nephrotoxic agents. Pain control per current medication regimen. Avoid to Toradol. No narcotics. Continue Hobson catheter for another 24 hours, continue to record strict accurate intake and output. Urine culture positive for Escherichia coli, continue Rocephin for IV antibiotic coverage. Insulin management per internal medicine. Preoperative hemoglobin A1c 7.4%. GI/DVT prophylaxis. Daily weights. Encourage oral intake, supplements ordered. Prognosis remains very guarded. Patient will likely need to be discharged to LTAC due to high level of care, needs extensive rehab, dialysis, daily physician monitoring with daily change in medications and plan based on daily labs. Social work to obtain insurance authorization when patient is ready to be discharged. More recommendations to follow based on patient's clinical course. Time with Patient: Greater than 30
--- NOTE | 2023-09-17 09:14 | P.PN ---
Subjective Patient is seen in follow-up for acute kidney injury, currently hemodialysis dependent. Permacath placed September 16, 2023. No problems with dialysis yesterday. Did have bleeding from the catheter site end of treatment. Now resolved. Sitting up in chair. Denies chest pain or shortness of breath. Oral intake fair. Urine output remains low. Vital signs are stable. General: No acute distress. HEENT: Head exam is unremarkable. LUNGS: No audible rhonchi or wheezes. HEART: Rate and Rhythm are regular. ABDOMEN: Nontender. EXTREMITITES: No edema. Objective - Vital Signs Vital signs: Vital Signs Temp 98.7 F 09/17/23 04:00 Pulse 82 09/17/23 07:00 Resp 10 L 09/17/23 07:00 BP 104/50 09/17/23 07:00 Pulse Ox 92 L 09/17/23 05:00 FiO2 40 09/02/23 20:33 Intake & Output 09/16/23 09/17/23 09/17/23 18:59 06:59 18:59 Intake Total 640 550 60 Output Total 335 2088 15 Balance 305 -1538 45 Weight 90 kg Intake: IV 300 50 Desmopressin Acetate 27 50 mcg In Sodium Chloride 0. 9% 50 ml @ 113.5 mls/hr IVPB ONCE ONE Rx#: [id number] cefTRIAXone 2 gm In 50 Sodium Chloride 0.9% 50 ml @ 100 mls/hr IVPB Q24HR [facility] Rx#:[id number] Oral 340 60 Hemodialysis 500 Output: Urine 310 210 15 Hemodialysis 1878 Estimated Blood Loss 25 Other: Voiding Method Indwelling Catheter Indwelling Catheter ABP, PAP, CO, CI - Last Documented Arterial Blood Pressure 83/58 Pulmonary Artery Pressure 45/17 Cardiac Output 3.5 Cardiac Index 2 - Labs CBC & Chem 7: 09/17/23 04:48 09/17/23 04:48 Labs: Abnormal Lab Results - Last 24 Hours (Table) 09/16/23 09/16/23 09/17/23 Range/Units 20:11 21:04 04:48 WBC 17.3 H (3.8-10.6) k/uL RBC 2.85 L (4.30-5.90) m/uL Hgb 8.8 L (13.0-17.5) gm/dL Hct 28.7 L (39.0-53.0) % MCV 100.7 H (80.0-100.0) fL MCHC 30.5 L (31.0-37.0) g/dL RDW 16.9 H (11.5-15.5) % Plt Count 123 L (150-450) k/uL Neutrophils # 15.2 H (1.3-7.7) k/uL Sodium (137-145) mmol/L BUN (9-20) mg/dL Creatinine (0.66-1.25) mg/dL Glucose (74-99) mg/dL POC Glucose (mg/dL) 172 H 166 H (70-110) mg/dL Calcium (8.4-10.2) mg/dL 09/17/23 09/17/23 Range/Units 04:48 06:23 WBC (3.8-10.6) k/uL RBC (4.30-5.90) m/uL Hgb (13.0-17.5) gm/dL Hct (39.0-53.0) % MCV (80.0-100.0) fL MCHC (31.0-37.0) g/dL RDW (11.5-15.5) % Plt Count (150-450) k/uL Neutrophils # (1.3-7.7) k/uL Sodium 132 L (137-145) mmol/L BUN 35 H (9-20) mg/dL Creatinine 2.37 H (0.66-1.25) mg/dL Glucose 185 H (74-99) mg/dL POC Glucose (mg/dL) 188 H (70-110) mg/dL Calcium 7.6 L (8.4-10.2) mg/dL Microbiology - Last 24 Hours (Table) 09/14/23 11:40 Urine Culture - Final Urine,Voided Escherichia coli Assessment and Plan Plan: Assessment: 1. Acute kidney injury secondary to ATN secondary to hypotension/cardiogenic shock. Baseline creatinine near 1. Started on hemodialysis September 09, 2023. Permacath placed September 16, 2023. Oliguric. 2. Coronary artery disease status post CABG x 3 September 02, 2023. 3. Shock now off vasopressors. 4. Cardiomyopathy with reduced ejection fraction. 5. Metabolic acidosis secondary to acute kidney injury. Improved postdialysis. Also on oral bicarb. 6. Urinary retention. Status post bladder irrigation and Hobson catheter placement. Urology following. 7. Bleeding from the access site. Status post IV DDAVP and stitch placement. Now resolved. 8. Hyponatremia secondary to acute kidney injury. Hypervolemic. Plan: Hemodialysis tomorrow. Encouraged oral intake. Monitor for renal recovery outpatient. Check phosphorus level.
--- NOTE | 2023-09-17 09:52 | P.PN ---
Subjective Progress Note Date: 09/17/23 The patient is a 63-year-old male who is currently admitted after undergoing coronary bypass. The patient is currently on hemodialysis and had a PermCath placed for long-term management. The patient is more alert today. He states that he did have some bleeding from his sternal site overnight and additional stitch was placed. Patient was interviewed and examined sitting up in a recliner chair. He denies any current pain or shortness of breath. He denies any dizziness or lightheadedness when getting up to the chair. GENERAL: Well-appearing, well-nourished and in no acute distress. NECK: Supple without JVD or thyromegaly. LUNGS: Breath sounds diminished to auscultation bilaterally. Respiration equal and unlabored. Fine crackles noted in the lung bases HEART: Regular rate and rhythm without murmurs, rubs or gallops. S1 and S2 heard. heart hugger in place. EXTREMITIES: Normal range of motion, +2 lower extremity pitting edema. No clubbing or cyanosis. Peripheral pulses intact and strong. TELEMETRY: sinus rhythm overnight IMPRESSION: Multivessel coronary artery disease Status post coronary bypass End-stage renal disease, on dialysis Urinary tract infection PLAN: continue supportive treatment including aggressive pulmonary hygiene Encourage ambulation Further recommendations based on clinical course I am dictating on behalf of Dr Rome Bates's history/physical and assessment/plan. Objective - Vital Signs Vital signs: Vital Signs Temp 98.0 F 09/17/23 08:00 Pulse 81 09/17/23 09:01 Resp 19 09/17/23 09:01 BP 109/54 09/17/23 09:01 Pulse Ox 95 09/17/23 09:01 FiO2 40 09/02/23 20:33 Intake & Output 09/16/23 09/17/23 09/17/23 18:59 06:59 18:59 Intake Total 640 550 350 Output Total 335 2088 25 Balance 305 -1538 325 Weight 90 kg Intake: IV 300 50 50 Desmopressin Acetate 27 50 mcg In Sodium Chloride 0. 9% 50 ml @ 113.5 mls/hr IVPB ONCE ONE Rx#: [id number] cefTRIAXone 2 gm In 50 50 Sodium Chloride 0.9% 50 ml @ 100 mls/hr IVPB Q24HR [facility] Rx#:[id number] Oral 340 300 Hemodialysis 500 Output: Urine 310 210 25 Hemodialysis 1878 Estimated Blood Loss 25 Other: Voiding Method Indwelling Catheter Indwelling Catheter ABP, PAP, CO, CI - Last Documented Arterial Blood Pressure 83/58 Pulmonary Artery Pressure 45/17 Cardiac Output 3.5 Cardiac Index 2 - Labs CBC & Chem 7: 09/17/23 04:48 09/17/23 04:48 Labs: Abnormal Lab Results - Last 24 Hours (Table) 09/16/23 09/16/23 09/17/23 Range/Units 20:11 21:04 04:48 WBC 17.3 H (3.8-10.6) k/uL RBC 2.85 L (4.30-5.90) m/uL Hgb 8.8 L (13.0-17.5) gm/dL Hct 28.7 L (39.0-53.0) % MCV 100.7 H (80.0-100.0) fL MCHC 30.5 L (31.0-37.0) g/dL RDW 16.9 H (11.5-15.5) % Plt Count 123 L (150-450) k/uL Neutrophils # 15.2 H (1.3-7.7) k/uL Sodium (137-145) mmol/L BUN (9-20) mg/dL Creatinine (0.66-1.25) mg/dL Glucose (74-99) mg/dL POC Glucose (mg/dL) 172 H 166 H (70-110) mg/dL Calcium (8.4-10.2) mg/dL 09/17/23 09/17/23 Range/Units 04:48 06:23 WBC (3.8-10.6) k/uL RBC (4.30-5.90) m/uL Hgb (13.0-17.5) gm/dL Hct (39.0-53.0) % MCV (80.0-100.0) fL MCHC (31.0-37.0) g/dL RDW (11.5-15.5) % Plt Count (150-450) k/uL Neutrophils # (1.3-7.7) k/uL Sodium 132 L (137-145) mmol/L BUN 35 H (9-20) mg/dL Creatinine 2.37 H (0.66-1.25) mg/dL Glucose 185 H (74-99) mg/dL POC Glucose (mg/dL) 188 H (70-110) mg/dL Calcium 7.6 L (8.4-10.2) mg/dL Microbiology - Last 24 Hours (Table) 09/14/23 11:40 Urine Culture - Final Urine,Voided Escherichia coli
[2023-09-17 12:02] LABS: Glucose,Whole Blood 218 mg/dL (70-110)
--- NOTE | 2023-09-17 13:36 | P.PN ---
Subjective Progress Note Date: 09/17/23 63-year-old male patient, was brought into the intensive care unit after having an antibiotic balloon pump inserted this morning and this was done in preparation for coronary artery bypass surgery. The patient is known to have CAD, chronic CHF with impaired ejection fraction of 30 to 35%. The patient has been hospitalized with [facility] and an earlier cardiac catheterization from April 2023 showed a 70% left main, 70% proximal LAD, 30% circumflex and 70% obtuse marginal 1 and 60% mid RCA. The patient has impaired LV function with an EF around 30 to 35% along with mild to moderate MR, and severe pulm hypertension. The patient is scheduled to undergo coronary artery bypass surgery tomorrow. He is currently on room air oxygen. Free of any chest pain. Hemodynamically stable. Augmented blood pressure is around 80. He has some developmental delay and his other comorbid conditions include diabetes mellitus type 2, hypertension and hyperlipidemia. Blood work shows a white cell count of 9, hemoglobin 11.8, platelet count of 206, normal coagulation profile, BUN of 27 with a creatinine of 1 and sodium levels at 138. LFTs are normal. His CAT scan of the chest that was done on 07/16/2023 showed cardiomegaly with small right and left-sided pleural effusion. This is consistent with CHF. No mediastinal lymphadenopathy. The patient is seen today September 02, 2023 in follow-up in the intensive care unit following surgery. He had undergone an on pump coronary artery bypass grafting x 3 with a left internal thoracic artery sequential to diagonal and the LAD. Right SVG from the aorta to the obtuse marginal #1. Left atrial appendage ligation and clipping. He remains intubated on the mechanical ventilator and assist-control mode at a rate of 14, tidal volume 500, FiO2 40% and a PEEP of 10. He remains on propofol at 20 mcg/kg/min. Lactated Ringer's at 50 MLS per hour. He is requiring vasopressin at 0.04 units/min. Insulin drip at 1 unit/h. Norepinephrine at 0.05 mcg/kg/min. Milrinone at 0.25 mcg/kg/min intra-aortic balloon pump remains in place. Mediastinal and right and left split chest tubes remain in place. Cardiac output is 4.7. Cardiac index 2.6. Received albumin. Receiving cefazolin. Heparin for DVT prophylaxis. White count 11.7. Hemoglo bin 11.5. Platelets 84,000. INR 1.4. Sodium 141. Potassium 3.7. Bicarb 22. BUN 22. Creatinine 0.88. Glucose 101. X-ray no overt failure, pneumothorax or sizable consolidation. ABG's are pending. Patient was today on 09/03/2023, patient was extubated last night uneventfully, patient is now on 2 L nasal cannula, his intra-aortic balloon has been removed today patient remains on pressors and on inotropes. Still requiring norepinephrine at 0.02 mcg/kg/min still on milrinone 0.25 mcg/kg/min and on 0.04 units/min of vasopressin. Cardiac output today is 6.5 cardiac index is 3.7 PA pressure 41/17 CVP of 15. Continues to have mediastinal left and right-sided pleural chest tubes in place, had about 780 mL output since surgery. Chest x- ray is showing mostly postoperative changes labs were all reviewed. WBC count is 15.2 hemoglobin 9.2. Basic metabolic profile is normal, creatinine 1.10 up from 0.88 yesterday Reevaluated today on 09/04/2023, patient remains in the ICU on 3 L nasal cannula, insulin drip at 1.5 units/h still receiving norepinephrine at 0.08 mcg/kg/min milrinone 0.1 mcg/kg/min vasopressin at 0.03 units/min. Cardiac output is 5.0 cardiac index 2.8, patient remains marginal at best, he is sitting at the bedside chair, does not seem to be in distress, on 3 L nasal cannula. Chest x- ray showed no evidence of pulmonary edema no evidence of pneumonia he does have a small tiny apical left pneumothorax. WBC count is 17.7 hemoglobin 9.4. Basic metabolic profile is normal however his BUN is 34 creatinine is 1.52, apparently the patient does have sustained some acute kidney injury most likely related to hypotension/acute tubular necrosis. Patient was reevaluated today on 09/05/2023, remains in the ICU, still requiring multiple drips, he is on dopamine at 2.5 mcg/kg/min norepinephrine at 0.03 mcg/kg/min vasopressin 0.03 units/min patient is also on insulin at 1.5 units/h. Cardiac index remains low at 1.9 cardiac output is relatively low at 3.4. Pulmonary artery pressure 44/18, CVP is 12. Patient does not seem to be very much motivated, he is achieving less than 500 cc on incentive spirometry. The last patient is on 2 L nasal cannula, refusing to participate in physical activity, refusing incentive spirometry, chest tubes, remain in place, prognosis remains guarded. Chest x-ray showed mostly bibasilar atelectasis, mild interstitial prominence, I doubt left-sided pneumothorax as documented by radiology Reevaluate today on 09/06/2023, patient is basically about the same. Patient is in the ICU, he is on multiple drips including higher dose of inotrope, milrinone 0.25 he is on norepinephrine at 0.02 mcg/kg/min vasopressin at 0.03 units/min do pamine at 2.5 mcg/kg/min dobutamine at 2.5 mcg/kg/min insulin at 2.5 units an hour, urine output is low, patient received albumin cardiac index is 2.9 today cardiac output is 5.9. His renal functioning is getting a bit worse, patient apparently the patient is developing what seems to be a cardiorenal syndrome. Chest x-ray is showing atelectasis and bibasilar pleural effusions. Patient is not motivated, does not seem to be interested in getting motivated. And been doing poorly with incentive spirometry Reevaluate today on 09/06, patient is basically about the same, he is now postoperative day #5, sitting at the bedside chair, patient is not motivated what bit remains on multiple inotropes and pressors, patient is receiving dopamine at 2.5 mcg/kg/min dobutamine at 5 mcg/kg/min norepinephrine at 0.06 mcg/kg/min vasopressin at 0.03 units/min and he is also on insulin at 3.5 units/ h today he is off milrinone. Cardiac output is 3.8 cardiac index is 2.1 PA pressure 43/15 CVP is 13. Chest x-ray showed mostly atelectasis at the bases. No clear-cut evidence of pulmonary edema. Patient is maintained on 2 L nasal cannula, again the patient is doing extremely poorly with incentive spirometry and does not seem to be motivated at all. Renal functioning seems to be getting worse, his BUN is 63 creatinine 3.54, at this rate I am quite concerned with the patient may end up requiring hemodialysis. This is being addressed by nephrology on the case. Liver enzymes are improving Today on 09/08/2023, patient is now postoperative day #6. Patient is still requiring dobutamine at 0.5 mcg/kg/min, still requiring vasopressin at 0.02 units/min, his norepinephrine is presently on hold, and milrinone was discontinued. Still on insulin at 3 units/h. Surprisingly the patient is not developing congestive heart failure, but he is developing worsening renal failure, and he may end up requiring renal replacement therapy. His PA pressure 40/18, his cardiac output is 3.9 cardiac index is 2.2 chest x-ray is showing bibasilar atelectasis and small left pleural effusion with a small right pleural effusion [place]Isabell remains in place WBC count is 6 hemoglobin 8.7 basic metabolic profile is normal except for bicarb of 15 and again worsening renal profile BUN is up to 71 creatinine 4.40 Progress note dated September 09, 2023. This is a 63-year-old male, who was seen today in room 266. The patient is status post three-vessel bypass grafting. He went to the operating room on September 01. He is currently on room air. He is receiving insulin at 2 units an hour. In addition, the patient is getting lactated Ringer's at 30 cc an hour, and dobutamine at 2.5 mcg/kg/min. The patient will have hemodialysis for the first time today. Current labs include a white count 6.8, hemoglobin 8.1, hematocrit 24.9, and a platelet count of 105,000. Sodium 135, potassium 4.6, chlorides 107, CO2 12, anion gap 16, BUN 79, creatinine 5.27. Glucose is 141. Calcium 7.6. AST is 300. ALT is 155. Albumin is 2.8. Chest x-ray shows cardiomegaly, with bilateral pleural effusions. Progress note dated September 10, 2023. This is a 63-year-old male who is seen in room 266. Currently, the patient is on room air. The patient is getting insulin drip at 3 units an hour, and continues on dobutamine for cardiovascular support at 5 mcg/kg/min. The patient is still not very motivated, to improve his overall clinical situation. He does poorly on his incentive spirometer. Current laboratory data includes a white count 8.7, hemoglobin 10 hematocrit 30.4, platelet count 119,000. Sodium 135, potassium 4.5, chlorides 104, CO2 14, anion gap 17, BUN 63, and creatinine 4.33. The most recent glucose was 127. AST is 200, ALT 141. Albumin 2.8. Calcium 7.6. The patient's chest x-ray shows some postoperative changes, but has been relatively stable. Progress note dated September 11, 2023. The patient is seen today in room 266. He is currently undergoing hemodialysis. The goal of hemodialysis today is removal of 1 L of fluid. Patient is on room air. The patient is getting saline at 20 cc an hour. The patient continues on dobutamine, for cardiovascular support at 2.5 mcg/kg/min. Current labs include a white count 11.9, hemoglobin 9.5, hematocrit 29.6, and a platelet count of 128,000. Sodium 132, potassium 4.3, chlorides 101, CO2 12, anion gap 19, BUN 53, creatinine 3.70. AST is 102. ALT is 100. Albumin is 2.8. Today's chest x-ray is very stable, and comparable to the x-ray done yesterday. Progress note dated September 12, 2023. The patient is again seen in room 266. Currently, the patient is doing about the same. The patient is on room air. He is getting saline at 20 cc an hour. He will have a permanent hemodialysis catheter placed today. Labs today include a white count 18, hemoglobin 9.8, hematocrit 30.3, and a platelet count of 142,000. Sodium 131, potassium 3.8, chlorides 99, CO2 20, BUN 46, creatinine 2.99. Glucose of 66. Albumin 2.8. The rest of the labs are reviewed. Chest x-ray shows postoperative changes, and persistent right pleural effusion with basilar atelectasis. Progress note dated September 13, 2023. The patient is seen today in room 266. Currently, the patient is on room air. He is getting saline at 20 cc an hour. The patient did have hemodialysis yesterday, and 2 L was removed. This was on September 11. The patient was to have a permanent hemodialysis catheter placed, but he apparently refused it. Current labs include a white count 23.8, hemoglobin 10, hematocrit 31.1, and platelet count 80,000. Sodium 129, potassium 3.9, chlorides 95, CO2 22, BUN 39, creatinine 3.0. Glucose was 126. Calcium 7.8. Total bilirubin 2.3. Albumin is 2.9. No chest x-ray today. Progress note dated September 14, 2023. The patient is again seen today in room 266. Currently he is on room air. The patient is not receiving any IV fluids. He did have hemodialysis yesterday. 1 L was removed, on September 12. He has no specific complaints today. Still doing very poorly on his incentive spirometer. Current labs include a white count 27.2, hemoglobin 9.7, hematocrit 31, and platelet count 69,000. Sodium 129, potassium 4.1, chloride 95, CO2 21, BUN 40, creatinine 2.83. Glucose is 207. Calcium 7.7. Phosphorus 4.7. Magnesium 1.9. Albumin 2.9. Chest x-ray shows some mild fluid overload. The chest x-ray is essentially unchanged. Progress note dated September 15, 2023. The patient is seen today in room 266. Currently he is on room air. He is not requiring any IV fluids. The patient did have hemodialysis yesterday, and 2 L was removed. The patient will have a permanent hemodialysis catheter placed tomorrow. Current labs include a white count 21.9, hemoglobin 10, hematocrit 32.7, and a platelet count of 73,000. Sodium 130, potassium 3.7, chlorides 97, CO2 25, BUN 37, and creatinine 2.58. Albumin is 2.7. Glucose is 128. Urine culture shows evidence of gram-negative bacilli. He was placed on Rocephin yesterday. Chest ultrasound shows a small 4.5 cm pocket on the right. Chest x- ray shows postsurgical changes, and a small right-sided pleural effusion. On today's evaluation on 09/16/2023, the patient is resting comfortably on a c hair. The patient is calm and comfortable. No significant events overnight. The patient is having a low urine output and the patient is going to undergo a permacath insertion today. The patient is calm and comfortable without any signs of respiratory distress. He is using incentive spirometer and pulling approximately 500. He remains in normal sinus rhythm. The chest x-ray is showing postsurgical changes with small bilateral pleural effusions. Hobson catheter still in place. Urine culture is showing E. coli and the patient remains on IV Rocephin. The patient's white cell count is at 15.5 with a hemoglobin of 9.7 and a platelet count of 109. Sodium is at 132, potassium is 3.6, BUN is 48 with a creatinine of 3.34 which is slightly higher compared to yesterday. The patient remains on aspirin, patient is also on metoprolol 12.5 mg p.o. twice a day. He is on Levemir insulin 50 units along with sliding scale insulin coverage. He is on oral bicarb supplements. The patient is currently postop day #15 following a three-vessel bypass surgery. The patient sustained an acute kidney injury postop requiring dialysis. He did not also encountered cardiogenic shock which essentially recovered. On today's evaluation of 09/17/2023, the patient is being seen for a follow-up. The patient is following coronary artery bypass surgery and the patient is postop day #16 following a three-vessel bypass surgery. He sustained acute kidney injury postop requiring hemodialysis. A permacath was inserted yesterday. The patient is doing well on room air oxygen. Denies having any significant respiratory distress. The patient's chest x-ray is showing some CHF which is stable in appearance with increased interstitial pattern bilaterally. The patient was started on hemodialysis via permacath yesterday. The permacath was inserted and the patient was given a hemodialysis session of 1.8 L. Another session of hemodialysis to be done today. Meanwhile, the white cell count is at 17 and this remains elevated as the patient suspected to have urine tract infection with E. coli the patient remains on IV Rocephin. Hemoglobin of 8.8 and a platelet count of his 123. Creatinine is down to 2.37 with a BUN of 35 and a sodium level of 132. No other significant events overnight. The patient is on Levemir insulin 15 units and sliding scale insulin coverage. The patient on metoprolol 12.5 mg p.o. twice a day in addition to aspirin and Plavix. He is on midodrine for hypotension. Objective - Vital Signs Vital signs: Vital Signs Temp 98.7 F 09/17/23 04:00 Pulse 82 09/17/23 07:00 Resp 10 L 09/17/23 07:00 BP 104/50 09/17/23 07:00 Pulse Ox 92 L 09/17/23 05:00 FiO2 40 09/02/23 20:33 Intake & Output 09/16/23 09/17/23 09/17/23 18:59 06:59 18:59 Intake Total 640 550 60 Output Total 335 2088 15 Balance 305 -1538 45 Weight 90 kg Intake: IV 300 50 Desmopressin Acetate 27 50 mcg In Sodium Chloride 0. 9% 50 ml @ 113.5 mls/hr IVPB ONCE ONE Rx#: [id number] 2 gm In 50 Sodium Chloride 0.9% 50 ml @ 100 mls/hr IVPB Q24HR [facility] Rx#:[id number] Oral 340 60 Hemodialysis 500 Output: Urine 310 210 15 Hemodialysis 1878 Estimated Blood Loss 25 Other: Voiding Method Indwelling Catheter Indwelling Catheter ABP, PAP, CO, CI - Last Documented Arterial Blood Pressure 83/58 Pulmonary Artery Pressure 45/17 Cardiac Output 3.5 Cardiac Index 2 - Exam No acute distress, oriented 3. Currently on room air. HEENT examination is grossly unremarkable. Mucous membranes are moist. No oral lesions. The patient has a permacath in his right IJ. Neck supple. Full range of motion. No adenopathy thyromegaly or neck vein distention. Cardiovascular examination reveals regular rhythm rate. S1-S2 normal. No S3 or S4. No discernible murmur noted. Heart sounds are distant. Lungs reveal scattered rhonchi. No wheezes or crackles. Breath sounds equal bilaterally. Abdomen soft, but obese, with bowel sounds. No masses or tenderness. Extremities are intact. No cyanosis clubbing or edema. Skin is without rash or lesion. Neurologic examination is brief but nonfocal. - Labs CBC & Chem 7: 09/17/23 04:48 09/17/23 04:48 Labs: Abnormal Lab Results - Last 24 Hours (Table) 09/16/23 09/16/23 09/17/23 Range/Units 20:11 21:04 04:48 WBC 17.3 H (3.8-10.6) k/uL RBC 2.85 L (4.30-5.90) m/uL Hgb 8.8 L (13.0-17.5) gm/dL Hct 28.7 L (39.0-53.0) % MCV 100.7 H (80.0-100.0) fL MCHC 30.5 L (31.0-37.0) g/dL RDW 16.9 H (11.5-15.5) % Plt Count 123 L (150-450) k/uL Neutrophils # 15.2 H (1.3-7.7) k/uL Sodium (137-145) mmol/L BUN (9-20) mg/dL Creatinine (0.66-1.25) mg/dL Glucose (74-99) mg/dL POC Glucose (mg/dL) 172 H 166 H (70-110) mg/dL Calcium (8.4-10.2) mg/dL 09/17/23 09/17/23 Range/Units 04:48 06:23 WBC (3.8-10.6) k/uL RBC (4.30-5.90) m/uL Hgb (13.0-17.5) gm/dL Hct (39.0-53.0) % MCV (80.0-100.0) fL MCHC (31.0-37.0) g/dL RDW (11.5-15.5) % Plt Count (150-450) k/uL Neutrophils # (1.3-7.7) k/uL Sodium 132 L (137-145) mmol/L BUN 35 H (9-20) mg/dL Creatinine 2.37 H (0.66-1.25) mg/dL Glucose 185 H (74-99) mg/dL POC Glucose (mg/dL) 188 H (70-110) mg/dL Calcium 7.6 L (8.4-10.2) mg/dL Microbiology - Last 24 Hours (Table) 09/14/23 11:40 Urine Culture - Final Urine,Voided Escherichia coli Assessment and Plan Plan: Multivessel coronary artery disease and the patient is S/P three-vessel bypass grafting. Patient is postop day # 14 Postthoracotomy and the surgical wound is clean and the patient's chest rhythm removed. Small bilateral pleural effusions on follow-up chest x-ray. Chronic systolic CHF, with an ejection fraction of 30 to 35%. Cardiogenic shock and severe LV dysfunction, recovered Acute kidney injury, requiring hemodialysis and the patient is status post permacath catheter insertion last dialysis was yesterday with a total of 1.8 L of fluid removal. E. coli/gram-negative bacillary urinary tract infection. Patient has a Hobson catheter in place and the patient is on IV Rocephin Leukocytosis Peripheral vascular disease. Type 2 diabetes mellitus. Essential hypertension. Hyperlipidemia. History of developmental delay. Bipolar disorder. Chronic anxiety. Prior history of tobacco use. Plan: The patient will continue aggressive pulmonary toileting and using the incentive spirometer on daily basis. Continue metoprolol 12.5 mg twice a day Continue aspirin and Plavix Permacath inserted yesterday will continue hemodialysis per nephrology. Possibly another session of hemodialysis today. Avoid nephrotoxic agents Hobson catheter will be kept in place pending urology consultation Continue IV Rocephin regarding E. coli urinary tract infection Hemodialysis per nephrology Continue midodrine 5 mg p.o. 3 times daily Statins are on hold based on some disturbances in his liver function test Will continue to follow
[2023-09-17 16:50] LABS: Glucose,Whole Blood 235 mg/dL (70-110)
[2023-09-17 20:05] LABS: Glucose,Whole Blood 238 mg/dL (70-110)
[2023-09-17 20:17] LABS: Glucose,Whole Blood 231 mg/dL (70-110)
--- NOTE | 2023-09-17 21:20 | P.PN ---
Subjective Progress Note Date: 09/08/23 63-year-old gentleman with past medical history significant for coronary artery disease, chronic congestive heart failure with ejection fraction of 30%, hypertension hyperlipidemia diabetes mellitus obesity bipolar disorder cardiomyopathy developmental delay history of nicotine dependence who has been admitted with shortness of breath and lower extremity edema. Patient underwent cardiac catheterization right heart catheterization and intra-aortic balloon pump. * Patient has comorbidities including diabetes mellitus type 2, peripheral arterial disease, bipolar disorder, history of anxiety. * Patient to undergo myocardial revascularization 09/02/2023. * 09/03/23 : Patient admitted to medical ICU. Patient was successfully extubated postprocedure. S/p intra-aortic balloon pump which remains in place through right femoral access. Patient remains on norepinephrine drip, Primacor drip, vasopressin. Bilateral chest tubes remained in place. Followed up by medical ICU and cardiac surgery. Follow-up blood work obtained including WBC 15.2 hemoglobin 9.2 platelet count of 98, serum chemistry sodium 141 potassium 4.7 carbon dioxide 24 BUN 26 creatinine 1.1 blood glucose 118-1 33 * 09/04/23: Patient seen and evaluated in medical ICU room 266, patient continues to remain on Levophed, vasopressin and pressor support. Blood work reviewed WBC 17.7 hemoglobin 9.4 platelet 117. Serum chemistry showed sodium 137 potassium 4.9 carbon dioxide 18 BUN 34 creatinine 1.52 blood glucose 123. Overnight patient was refusing to participate with care, patient counseled by cardiac surgery team as well. Brother at bedside, patient does follow co mmands, care plan discussed with nursing staff * 09/05/23: Patient seen and evaluated bedside, vitals reviewed blood pressure running in the 90s overnight. Patient remains on 2 L of oxygen. Blood work reviewed CBC shows WBC 14.3 hemoglobin 9.3 platelet 105 serum chemistry sodium 137 potassium 5.2 carbon dioxide 16 BUN 44 creatinine 1.99 total bilirubin 1.3 AST 464 ALT 128 will need to be monitored, p.atient remains lethargic however easily arousable 09/06/2023 -- Patient is seen and evaluated in ICU at bedside Vital signs reviewed and temperature of 97.9, pulse 90, respiration 14 and blood pressure of 110/40 Lab review shows WBC 14.2, hemoglobin of 8.7 and platelet count of 109, sodium 136, potassium 4.8, BUNs/creatinine of 54/2.91; concern about worsening renal fu nction likely related to cardiorenal syndrome; dopamine has been discontinued Chest x-ray reveals atelectasis and bibasilar pleural effusion --Patient remains on pressors and inotropic agents; cardiac index and cardiac output is being monitored closely -Patient remains on Plavix, aspirin, statins and beta-blockers -- Recommended to increase activity 09/07/2023 ---patient is basically about the same, he is now postoperative day #5, sitting at the bedside chair, patient is not motivated what bit remains on multiple inotropes and pressors, patient is receiving dopamine at 2.5 mcg/kg/min dobutamine at 5 mcg/kg/min norepinephrine at 0.06 mcg/kg/min vasopressin at 0.03 units/min and he is also on insulin at 3.5 units/h today he is off milrinone. Chest x-ray showed mostly atelectasis at the bases. No clear-cut evidence of pulmonary edema. Patient is maintained on 2 L nasal cannula, again the patient is doing extremely poorly with incentive spirometry and does not seem to be motivated at all. Renal functioning seems to be getting worse, his BUN is 63 creatinine 3.54, at this rate I am quite concerned with the patient may end up requiring hemodialysis. This is being addressed by nephrology on the case. Liver enzymes are improving Continue pressors and inotropes continue to monitor cardiac index and cardiac output Continue dopamine, continue dobutamine, patient is off milrinone today. However he is still requiring norepinephrine and vasopressin Continue Plavix beta-blockers aspirin and statin Titrate pressors and inotropes as tolerated 09/08/2023 --patient is seen and evaluated with family at bedside; now postoperative day # 6. -- Patient is still requiring dobutamine at 0.5 mcg/kg/min, still requiring vasopressin at 0.02 units/min, his norepinephrine is presently on hold, and milrinone was discontinued. Still on insulin at 3 units/h. -- chest x-ray is showing bibasilar atelectasis and small left pleural effusion with a small right pleural effusion -- WBC count is 6 hemoglobin 8.7 basic metabolic profile is normal except for bicarb of 15 and again worsening renal profile BUN is up to 71 creatinine 4.40 -Renal function continues to worsen; nephrology on board and planning to continue with IV Lasix and oral sodium bicarbonate; plan for possible hemodialysis in a.m. if urine output does not improve 09/09/2023 Patient is awake alert but looks very tired and lethargic lying in chair. No significant chest pain. Patient has average appetite No significant dyspnea but looks very weak Patient required pressors Patient planned and considered for hemodialysis given his worsening renal function today 5.2 compared with 1.5 upon admission He has severe cardiomyopathy with ejection fraction 20 to 25% and currently on aspirin and Plavix and amiodarone drip. Also he required pressors as above, cardiology following closely. 09/10/2023 Patient still lethargic still sitting in chair No much difference clinically from yesterday A plan to undergo hemodialysis today for first-line, hemodialysis catheter in place. Patient is oliguric. He is currently getting dobutamine and insulin drip 3 units/h He is also on aspirin and Plavix and metoprolol 09/11/2023 Patient remains very lethargic No new complaint He remains on dobutamine drip at 2.5 He is getting the third round of hemodialysis today His insulin drip switched to sliding scale and Levemir Continue with dual antiplatelet therapy Labs showing stable hemoglobin 9.5. Platelet 1 28,000 09/12/2023 Patient looks more awake and alert today, he still generally weak sitting up in chair. No chest pain no dyspnea, no other specific complaint he Is getting hemodialysis. Creatinine down to 2.9. Hemoglobin stable, platelet count stable. He was started on Levemir 14 and twice daily yesterday, his sugar was on the low side this morning therefore we are going to lower the dose to Levemir 15 units at bedtime with close monitoring. Started also on sodium bicarb ] I am resuming the care of the patient on 09/16/2022 Patient looks more energetic relaxed and sitting up in bed compared to last week He denies any specific complaint Hobson catheter in place No chest pain or dyspnea He is on ceftriaxone, urine culture growing E. coli. Patient has leukocytosis about 17,000 Also his sugars controlled on Levemir 15 units increased today to 17 units Rest of labs reviewed and they are stable. Creatinine 2.3 and patient had permacath placed yesterday undergoing hemodialysis Objective - Vital Signs Vital signs: Vital Signs Temp 98.0 F 09/17/23 08:00 Pulse 81 09/17/23 09:01 Resp 19 04/09/24 09:01 BP 109/54 09/17/23 09:01 Pulse Ox 95 09/17/23 09:01 FiO2 40 09/02/23 20:33 Intake & Output 09/16/23 09/17/23 09/17/23 18:59 06:59 18:59 Intake Total 640 550 350 Output Total 335 2088 25 Balance 305 -1538 325 Weight 90 kg Intake: IV 300 50 50 Desmopressin Acetate 27 50 mcg In Sodium Chloride 0. 9% 50 ml @ 113.5 mls/hr IVPB ONCE ONE Rx#: [id number] cefTRIAXone 2 gm In 50 50 Sodium Chloride 0.9% 50 ml @ 100 mls/hr IVPB Q24HR [facility] Rx#:[id number] Oral 340 300 Hemodialysis 500 Output: Urine 310 210 25 Hemodialysis 1878 Estimated Blood Loss 25 Other: Voiding Method Indwelling Catheter Indwelling Catheter ABP, PAP, CO, CI - Last Documented Arterial Blood Pressure 83/58 Pulmonary Artery Pressure 45/17 Cardiac Output 3.5 Cardiac Index 2 - Exam -GENERAL: The patient is alert and oriented x3, not in any acute distress. Well developed, well nourished. Lethargic and weak HEENT: Pupils are round and equally reacting to light. EOMI. No scleral icterus. No conjunctival pallor. Normocephalic, atraumatic. No pharyngeal erythema. No thyromegaly. CARDIOVASCULAR: S1 and S2 present. No murmurs, rubs, or gallops. PULMONARY: Chest is clear to auscultation, no wheezing , no crackles. ABDOMEN: Soft, nontender, nondistended, normoactive bowel sounds. No palpable organomegaly. MUSCULOSKELETAL: No joint swelling or deformity. -EXTREMITIES: No cyanosis, clubbing, bilateral pitting leg edema.-follow-up with wound service at the [facility] We recommend close monitoring of this metabolic panel (BMP ) while patient is on Lasix, also monitoring of complete cell count (CBC) NEUROLOGICAL: Gross neurological examination did not reveal any focal deficits. SKIN: No rashes. no petechiae. - Labs CBC & Chem 7: 09/17/23 04:48 09/17/23 04:48 Labs: Abnormal Lab Results - Last 24 Hours (Table) 09/16/23 09/16/23 09/17/23 Range/Units 20:11 21:04 04:48 WBC 17.3 H (3.8-10.6) k/uL RBC 2.85 L (4.30-5.90) m/uL Hgb 8.8 L (13.0-17.5) gm/dL Hct 28.7 L (39.0-53.0) % MCV 100.7 H (80.0-100.0) fL MCHC 30.5 L (31.0-37.0) g/dL RDW 16.9 H (11.5-15.5) % Plt Count 123 L (150-450) k/uL Neutrophils # 15.2 H (1.3-7.7) k/uL Sodium (137-145) mmol/L BUN (9-20) mg/dL Creatinine (0.66-1.25) mg/dL Glucose (74-99) mg/dL POC Glucose (mg/dL) 172 H 166 H (70-110) mg/dL Calcium (8.4-10.2) mg/dL 09/17/23 09/17/23 Range/Units 04:48 06:23 WBC (3.8-10.6) k/uL RBC (4.30-5.90) m/uL Hgb (13.0-17.5) gm/dL Hct (39.0-53.0) % MCV (80.0-100.0) fL MCHC (31.0-37.0) g/dL RDW (11.5-15.5) % Plt Count (150-450) k/uL Neutrophils # (1.3-7.7) k/uL Sodium 132 L (137-145) mmol/L BUN 35 H (9-20) mg/dL Creatinine 2.37 H (0.66-1.25) mg/dL Glucose 185 H (74-99) mg/dL POC Glucose (mg/dL) 188 H (70-110) mg/dL Calcium 7.6 L (8.4-10.2) mg/dL Microbiology - Last 24 Hours (Table) 09/14/23 11:40 Urine Culture - Final Urine,Voided Escherichia coli Assessment and Plan Assessment: Acute on chronic systolic ejection of congestive heart failure with ejection fraction worsened 35% down to 25% Cardiogenic shock Acute kidney injury requiring hemodialysis Peripheral vascular disease Hypertension Hyperlipidemia Diabetes mellitus Bipolar disorder Plan: Continue with pressors per noodle maker will follow the clinical case closely Pulmonary/critical care team Continue with insulin Levemir 17 units Continue with amiodarone and aspirin and Plavix On metoprolol Continue with hemodialysis per vp revenue cycle Several consultants on the case DVT prophylaxis with subcutaneous heparin GI prophylaxis with Protonix Prognosis is guarded
[2023-09-17] MEDS: INSULIN DETEMIR (LEVEMIR) 100 UNIT/ML SYR SQ ONE (23:07)
[2023-09-18 05:30] LABS: Glucose,Whole Blood 64 mg/dL (70-110)
[2023-09-18 05:49] LABS: Glucose,Whole Blood 65 mg/dL (70-110)
[2023-09-18 06:12] LABS: Glucose,Whole Blood 82 mg/dL (70-110)
[2023-09-18 06:45] LABS: ALT 19 U/L (4-49); AST 26 U/L (17-59); African American GFR (CKD) 23 (>60 ml/min/1.73 sqM); Albumin 2.9 g/dL (3.5-5.0); Alkaline Phosphatase 142 U/L (38-126); Anion Gap 11 mmol/L; Blood Urea Nitrogen 45 mg/dL (9-20); Carbon Dioxide 24 mmol/L (22-30); Chloride 97 mmol/L (98-107); Glucose 107 mg/dL (74-99); Magnesium 1.9 mg/dL (1.6-2.3); Non-African American GFR(CKD) 20 (>60 ml/min/1.73 sqM); Phosphorus 3.9 mg/dL (2.5-4.5); Potassium 3.6 mmol/L (3.5-5.1); Sodium 132 mmol/L (137-145); Total Protein 5.7 g/dL (6.3-8.2)
[2023-09-18 06:49] LABS: Anisocytosis Slight; Basophils # (A) 0.1 k/uL (0-0.2); Basophils % (A) 1 %; Eosinophils # (A) 0.3 k/uL (0-0.7); Eosinophils % (A) 2 %; HGB 8.9 gm/dL (13.0-17.5); Hypochromasia Marked; Lymphocytes # (A) 1.1 k/uL (1.0-4.8); Lymphocytes % (A) 9 %; MCH 31.5 pg (25.0-35.0); MCHC 30.7 g/dL (31.0-37.0); MCV 102.6 fL (80.0-100.0); Macrocytosis Moderate; Mean Platelet Volume 8.5; Monocytes # (A) 0.8 k/uL (0-1.0); Monocytes % (A) 6 %; Neutrophils # (A) 10.2 k/uL (1.3-7.7); Neutrophils % (A) 80 %; Platelet Count 148 k/uL (150-450); RBC 2.83 m/uL (4.30-5.90); RDW 16.6 % (11.5-15.5); WBC 12.8 k/uL (3.8-10.6)
--- NOTE | 2023-09-18 07:09 | P.PN ---
Subjective Progress Note Date: 09/18/23 Principal diagnosis: Triple-vessel coronary artery disease with left main disease. Past medical history significant for hypertension, hyperlipidemia, diabetes mellitus, chronic systolic heart failure with reduced ejection fraction/ischemic cardiomyopathy, bipolar disorder, obesity, peripheral vascular disease, developmental delay, previous tobacco dependence, noncompliance POD #17 right heart catheterization, ultrasound guided access, placement of intra-aortic balloon pump from right femoral access performed by Dr. Monreal. POD #16 on pump coronary artery bypass grafting x 3, left internal thoracic artery (in-situ) sequential to diagonal and left anterior descending coronary artery, right greater saphenous vein from aorta to obtuse marginal artery #1, left atrial appendage ligation with #35mm AtriClip, endoscopic bilateral greater saphenous vein harvest, graft flow measurements using the [employer] flow meter system, trans-esophageal echo Postoperative acute blood loss anemia and thrombocytopenia, expected given hemodilution and cardiopulmonary bypass LEONARDO, status post placement of temp dialysis cath. POD #2 Insertion of Perma-Cath via Right Subclavian Vein. Elevated transaminases, likely due to hypoperfusion, resolved Cardiogenic shock, resolved The patient was seen and examined in follow-up today September 18, 2023 at his bedside in the intensive care unit. He is currently sitting up to the bedside chair, is awake, alert, oriented x 3 and is in no acute apparent distress. He denies any complaints of pain or shortness of breath at this time. He is in good spirits this morning. The patient had his first postoperative shower yesterday and tolerated well. Oxygen saturations are 98% on room air and he is achieving around 500 mL on his incentive spirometry with encouragement. Bedside telemetry is showing normal sinus rhythm heart rate 71 bpm. He remains hemodynamically stable and is currently on no inotropic or pressor support. Right chest permacath is in place with dressing clean dry and intact. Chest x- ray and laboratory results were reviewed. Objective - Vital Signs Vital signs: Vital Signs Temp 97.9 F 09/18/23 04:00 Pulse 72 09/18/23 06:00 Resp 19 09/18/23 06:00 BP 109/59 09/18/23 06:00 Pulse Ox 98 09/18/23 06:00 FiO2 40 09/02/23 20:33 Intake & Output 09/17/23 09/18/23 09/18/23 18:59 06:59 18:59 Intake Total 3698 520 Output Total 823 111 Balance 2875 409 Weight 87.7 kg Intake: IV 50 cefTRIAXone 2 gm In 50 Sodium Chloride 0.9% 50 ml @ 100 mls/hr IVPB Q24HR [facility] Rx#:[id number] Oral 898 520 Hemodialysis 2750 Output: Urine 73 111 Hemodialysis 750 Other: Voiding Method Indwelling Catheter Indwelling Catheter ABP, PAP, CO, CI - Last Documented Arterial Blood Pressure 83/58 Pulmonary Artery Pressure 45/17 Cardiac Output 3.5 Cardiac Index 2 - Exam CONSTITUTIONAL: Sitting up to the bedside chair in the intensive care unit, appears comfortable, cooperative, no apparent acute distress. HEENT: Neck is supple, no JVD, no lymphadenopathy. RESPIRATORY: Lungs sounds essentially clear throughout, diminished to his bilateral bases. Respirations are symmetrical and nonlabored. Currently on room air with oxygen saturations 98%. Able to achieve 500 mL on his incentive spirometry with encouragement and instruction. Weak cough. CARDIOVASCULAR: Regular rhythm and rate. S1 and S2 present, negative for S3, gallop or murmur. Bedside telemetry showing normal sinus rhythm heart rate 71 bpm. Sternum is stable. Palpable peripheral pulses bilaterally, +1 edema gene ralized. No calf pain or tenderness noted. Heart hugger in place with patient demonstrating appropriate use with much encouragement. Knee-high VARUN hose and sequential compression devices in place to his bilateral lower extremities. GASTROINTESTINAL: Abdomen soft, nontender, nondistended. Active bowel sounds present 4 quadrants. Tolerating diet. Passing flatus. No guarding or rigidity. Bowel movement yesterday 09/17/2023. GENITOURINARY: Hemodialysis September 16, 2023 with 1887 mL of ultrafiltration completed. Hosbon catheter in place for urine retention, urine output in the last 8 hours is 85 mL. INTEGUMENTARY: Skin is warm and dry with no evidence of clubbing or cyanosis. Midline sternal incision clean dry and well approximated, covered with dry intact dressing. Bilateral lower extremity EVH sites well approximated without redness or drainage. Erythema to his coccyx, dressing clean, dry and intact. NEUROLOGIC: Cranial nerves II through XII intact. MUSKULOSKELETAL: Able to move all extremities, strength equal bilaterally, generalized weakness. PSYCHIATRIC: Alert and oriented to person place and disoriented to time, appropriate affect. - Allied health notes Allied health notes reviewed: nursing - Labs CBC & Chem 7: 09/18/23 06:16 09/18/23 06:16 Labs: Abnormal Lab Results - Last 24 Hours (Table) 09/17/23 09/17/23 09/17/23 Range/Units 11:51 16:49 20:04 WBC (3.8-10.6) k/uL RBC (4.30-5.90) m/uL Hgb (13.0-17.5) gm/dL Hct (39.0-53.0) % MCV (80.0-100.0) fL MCHC (31.0-37.0) g/dL RDW (11.5-15.5) % Plt Count (150-450) k/uL Neutrophils # (1.3-7.7) k/uL Sodium (137-145) mmol/L Chloride (98-107) mmol/L BUN (9-20) mg/dL Creatinine (0.66-1.25) mg/dL Glucose (74-99) mg/dL POC Glucose (mg/dL) 218 H 235 H 238 H (70-110) mg/dL Calcium (8.4-10.2) mg/dL Alkaline Phosphatase (38-126) U/L Total Protein (6.3-8.2) g/dL Albumin (3.5-5.0) g/dL 09/17/23 09/18/23 09/18/23 Range/Units 20:16 05:29 05:47 WBC (3.8-10.6) k/uL RBC (4.30-5.90) m/uL Hgb (13.0-17.5) gm/dL Hct (39.0-53.0) % MCV (80.0-100.0) fL MCHC (31.0-37.0) g/dL RDW (11.5-15.5) % Plt Count (150-450) k/uL Neutrophils # (1.3-7.7) k/uL Sodium (137-145) mmol/L Chloride (98-107) mmol/L BUN (9-20) mg/dL Creatinine (0.66-1.25) mg/dL Glucose (74-99) mg/dL POC Glucose (mg/dL) 231 H 64 L 65 L (70-110) mg/dL Calcium (8.4-10.2) mg/dL Alkaline Phosphatase (38-126) U/L Total Protein (6.3-8.2) g/dL Albumin (3.5-5.0) g/dL 09/18/23 09/18/23 Range/Units 06:16 06:16 WBC 12.8 H (3.8-10.6) k/uL RBC 2.83 L (4.30-5.90) m/uL Hgb 8.9 L (13.0-17.5) gm/dL Hct 29.0 L (39.0-53.0) % MCV 102.6 H (80.0-100.0) fL MCHC 30.7 L (31.0-37.0) g/dL RDW 16.6 H (11.5-15.5) % Plt Count 148 L (150-450) k/uL Neutrophils # 10.2 H (1.3-7.7) k/uL Sodium 132 L (137-145) mmol/L Chloride 97 L (98-107) mmol/L BUN 45 H (9-20) mg/dL Creatinine 3.20 H (0.66-1.25) mg/dL Glucose 107 H (74-99) mg/dL POC Glucose (mg/dL) (70-110) mg/dL Calcium 8.0 L (8.4-10.2) mg/dL Alkaline Phosphatase 142 H (38-126) U/L Total Protein 5.7 L (6.3-8.2) g/dL Albumin 2.9 L (3.5-5.0) g/dL - Imaging and Cardiology Chest x-ray: report reviewed, image reviewed Assessment and Plan Assessment: Multivessel coronary artery disease with left main disease, status post three- vessel on pump coronary artery bypass grafting surgery Chronic systolic congestive heart failure with an ejection fraction of 30 to 35%, status post preoperative intra-aortic balloon pump placement Cardiomyopathy Hypertension, currently on midodrine for blood pressure support Hyperlipidemia Diabetes mellitus type 2, with hemoglobin A1c 10.9 in April 2023, preoperative hemoglobin A1c 7.4% on September 01, 2023 Peripheral arterial disease, recent ABIs to right 0.95 and left 0.97 Bilateral pleural effusions on July 16, 2023 CT scan of the chest Obesity with a BMI of 32.7 kg/m Bipolar disorder Developmentally delayed Anxiety History of noncompliance with medical therapy Remote history of nicotine dependence quit smoking over 20 years ago, with an FEV1 of 55% of predicted value and a base volume of 1.43 Postoperative acute blood loss anemia and thrombocytopenia, expected Incidental finding of tiny left pneumothorax, not a complication, resolved Acute kidney injury, status post dialysis cath placement, status post insertion of permacath Elevated transaminase and cardiogenic shock, likely from hypoperfusion, resolved Leukocytosis, positive urine culture for Escherichia coli Medical debility Plan: Continue aspirin, Plavix, and statin. Continue metoprolol tartrate 12.5 mg p.o. twice daily with hold parameters. Continue midodrine 5 mg p.o. 3 times daily per cardiology management. Encourage use of incentive spirometry 10 times every hour while awake. Bronchodilators per pulmonology. Increase activity, ambulate as tolerated. PT/OT/cardiac rehab following. Will monitor daily labs and chest x-rays. Hemodialysis recommendations per nephrology. Avoid nephrotoxic agents. Pain control per current medication regimen. Avoid to Toradol. No narcotics. Continue Hobson catheter for another 24 hours, continue to record strict accurate intake and output. Urine culture positive for Escherichia coli, continue Rocephin for IV antibiotic coverage. Insulin management per internal medicine. Preoperative hemoglobin A1c 7.4%. GI/DVT prophylaxis. Daily weights. Encourage oral intake, supplements ordered. Prognosis remains very guarded. Patient will likely need to be discharged to LTAC due to high level of care, needs extensive rehab, dialysis, daily physician monitoring with daily change in medications and plan based on daily labs. Social work to obtain insurance auth orization when patient is ready to be discharged. More recommendations to follow based on patient's clinical course. Time with Patient: Greater than 30
--- NOTE | 2023-09-18 07:49 | XR ---
EXAMINATION TYPE: XR chest 1V portable DATE OF EXAM: 09/18/2023 COMPARISON: 09/17/2023 HISTORY: Shortness of breath TECHNIQUE: Single frontal view of the chest is obtained. FINDINGS: Right-sided dialysis catheter the tip overlying the right atrium. Diffuse interstitial lin favio, bilateral consolidation and pleural effusion. Postsurgical changes. Arthropathy of the shoulders . Osseous structures are stable. IMPRESSION: CHF stable in appearance.
--- NOTE | 2023-09-18 09:54 | P.PN ---
Subjective Progress Note Date: 09/18/23 The patient is a 63-year-old male who is currently admitted after undergoing coronary bypass. The patient is currently on hemodialysis and had a PermCath placed for long-term management after acute kidney injury. The patient is more alert today and states he is feeling better every day. He is quite depressed about having to undergo dialysis. Patient was interviewed and examined sitting up in a recliner chair. He denies any current pain or shortness of breath. He denies any dizziness or lightheaded ness when getting up to the chair. GENERAL: Well-appearing, well-nourished and in no acute distress. NECK: Supple without JVD or thyromegaly. LUNGS: Breath sounds diminished to auscultation bilaterally. Respiration equal and unlabored. Inspiratory wheezes bilaterally HEART: Regular rate and rhythm without murmurs, rubs or gallops. S1 and S2 heard. heart hugger in place. EXTREMITIES: Normal range of motion, +2 lower extremity pitting edema. No clubbing or cyanosis. Peripheral pulses intact and strong. TELEMETRY: sinus rhythm overnight IMPRESSION: Multivessel coronary artery disease Status post coronary bypass Acute kidney injury, on dialysis Urinary tract infection PLAN: continue supportive treatment including aggressive pulmonary hygiene Encourage ambulation Further recommendations based on clinical course I am dictating on behalf of Dr Rome Bates's history/physical and assess ment/plan. Objective - Vital Signs Vital signs: Vital Signs Temp 97.8 F 09/18/23 08:00 Pulse 72 09/18/23 09:00 Resp 14 09/18/23 09:00 BP 102/70 09/18/23 09:00 Pulse Ox 99 09/18/23 09:00 FiO2 40 09/02/23 20:33 Intake & Output 09/17/23 09/18/23 09/18/23 18:59 06:59 18:59 Intake Total 3698 520 168 Output Total 823 111 10 Balance 2875 409 158 Weight 87.7 kg 87.7 kg Intake: IV 50 50 cefTRIAXone 2 gm In 50 50 Sodium Chloride 0.9% 50 ml @ 100 mls/hr IVPB Q24HR [facility] Rx#:[id number] Oral 898 520 118 Hemodialysis 2750 Output: Urine 73 111 10 Hemodialysis 750 Other: Voiding Method Indwelling Catheter Indwelling Catheter Indwelling Catheter ABP, PAP, CO, CI - Last Documented Arterial Blood Pressure 83/58 Pulmonary Artery Pressure 45/17 Cardiac Output 3.5 Cardiac Index 2 - Labs CBC & Chem 7: 09/18/23 06:16 09/18/23 06:16 Labs: Abnormal Lab Results - Last 24 Hours (Table) 09/17/23 09/17/23 09/17/23 Range/Units 11:51 16:49 20:04 WBC (3.8-10.6) k/uL RBC (4.30-5.90) m/uL Hgb (13.0-17.5) gm/dL Hct (39.0-53.0) % MCV (80.0-100.0) fL MCHC (31.0-37.0) g/dL RDW (11.5-15.5) % Plt Count (150-450) k/uL Neutrophils # (1.3-7.7) k/uL Sodium (137-145) mmol/L Chloride (98-107) mmol/L BUN (9-20) mg/dL Creatinine (0.66-1.25) mg/dL Glucose (74-99) mg/dL POC Glucose (mg/dL) 218 H 235 H 238 H (70-110) mg/dL Calcium (8.4-10.2) mg/dL Alkaline Phosphatase (38-126) U/L Total Protein (6.3-8.2) g/dL Albumin (3.5-5.0) g/dL 09/17/23 09/18/23 09/18/23 Range/Units 20:16 05:29 05:47 WBC (3.8-10.6) k/uL RBC (4.30-5.90) m/uL Hgb (13.0-17.5) gm/dL Hct (39.0-53.0) % MCV (80.0-100.0) fL MCHC (31.0-37.0) g/dL RDW (11.5-15.5) % Plt Count (150-450) k/uL Neutrophils # (1.3-7.7) k/uL Sodium (137-145) mmol/L Chloride (98-107) mmol/L BUN (9-20) mg/dL Creatinine (0.66-1.25) mg/dL Glucose (74-99) mg/dL POC Glucose (mg/dL) 231 H 64 L 65 L (70-110) mg/dL Calcium (8.4-10.2) mg/dL Alkaline Phosphatase (38-126) U/L Total Protein (6.3-8.2) g/dL Albumin (3.5-5.0) g/dL 09/18/23 09/18/23 Range/Units 06:16 06:16 WBC 12.8 H (3.8-10.6) k/uL RBC 2.83 L (4.30-5.90) m/uL Hgb 8.9 L (13.0-17.5) gm/dL Hct 29.0 L (39.0-53.0) % MCV 102.6 H (80.0-100.0) fL MCHC 30.7 L (31.0-37.0) g/dL RDW 16.6 H (11.5-15.5) % Plt Count 148 L (150-450) k/uL Neutrophils # 10.2 H (1.3-7.7) k/uL Sodium 132 L (137-145) mmol/L Chloride 97 L (98-107) mmol/L BUN 45 H (9-20) mg/dL Creatinine 3.20 H (0.66-1.25) mg/dL Glucose 107 H (74-99) mg/dL POC Glucose (mg/dL) (70-110) mg/dL Calcium 8.0 L (8.4-10.2) mg/dL Alkaline Phosphatase 142 H (38-126) U/L Total Protein 5.7 L (6.3-8.2) g/dL Albumin 2.9 L (3.5-5.0) g/dL
--- NOTE | 2023-09-18 10:21 | P.PN ---
Subjective Patient is seen in follow-up for acute kidney injury, currently hemodialysis dependent. Permacath placed September 16, 2023. Tolerating dialysis well. Denies chest pain or shortness of breath. Oral intake fair. Urine output remains low. Vital signs are stable. General: No acute distress. HEENT: Head exam is unremarkable. LUNGS: No audible rhonchi or wheezes. HEART: Rate and Rhythm are regular. ABDOMEN: Nontender. EXTREMITITES: No edema. Objective - Vital Signs Vital signs: Vital Signs Temp 97.8 F 09/18/23 08:00 Pulse 72 09/18/23 09:00 Resp 14 09/18/23 09:00 BP 102/70 09/18/23 09:00 Pulse Ox 99 09/18/23 09:00 FiO2 40 09/02/23 20:33 Intake & Output 09/17/23 09/18/23 09/18/23 18:59 06:59 18:59 Intake Total 3698 520 168 Output Total 823 111 10 Balance 2875 409 158 Weight 87.7 kg 87.7 kg Intake: IV 50 50 cefTRIAXone 2 gm In 50 50 Sodium Chloride 0.9% 50 ml @ 100 mls/hr IVPB Q24HR [facility] Rx#:[id number] Oral 898 520 118 Hemodialysis 2750 Output: Urine 73 111 10 Hemodialysis 750 Other: Voiding Method Indwelling Catheter Indwelling Catheter Indwelling Catheter ABP, PAP, CO, CI - Last Documented Arterial Blood Pressure 83/58 Pulmonary Artery Pressure 45/17 Cardiac Output 3.5 Cardiac Index 2 - Labs CBC & Chem 7: 09/18/23 06:16 09/18/23 06:16 Labs: Abnormal Lab Results - Last 24 Hours (Table) 09/17/23 09/17/23 09/17/23 Range/Units 11:51 16:49 20:04 WBC (3.8-10.6) k/uL RBC (4.30-5.90) m/uL Hgb (13.0-17.5) gm/dL Hct (39.0-53.0) % MCV (80.0-100.0) fL MCHC (31.0-37.0) g/dL RDW (11.5-15.5) % Plt Count (150-450) k/uL Neutrophils # (1.3-7.7) k/uL Sodium (137-145) mmol/L Chloride (98-107) mmol/L BUN (9-20) mg/dL Creatinine (0.66-1.25) mg/dL Glucose (74-99) mg/dL POC Glucose (mg/dL) 218 H 235 H 238 H (70-110) mg/dL Calcium (8.4-10.2) mg/dL Alkaline Phosphatase (38-126) U/L Total Protein (6.3-8.2) g/dL Albumin (3.5-5.0) g/dL 09/17/23 09/18/23 09/18/23 Range/Units 20:16 05:29 05:47 WBC (3.8-10.6) k/uL RBC (4.30-5.90) m/uL Hgb (13.0-17.5) gm/dL Hct (39.0-53.0) % MCV (80.0-100.0) fL MCHC (31.0-37.0) g/dL RDW (11.5-15.5) % Plt Count (150-450) k/uL Neutrophils # (1.3-7.7) k/uL Sodium (137-145) mmol/L Chloride (98-107) mmol/L BUN (9-20) mg/dL Creatinine (0.66-1.25) mg/dL Glucose (74-99) mg/dL POC Glucose (mg/dL) 231 H 64 L 65 L (70-110) mg/dL Calcium (8.4-10.2) mg/dL Alkaline Phosphatase (38-126) U/L Total Protein (6.3-8.2) g/dL Albumin (3.5-5.0) g/dL 09/18/23 09/18/23 Range/Units 06:16 06:16 WBC 12.8 H (3.8-10.6) k/uL RBC 2.83 L (4.30-5.90) m/uL Hgb 8.9 L (13.0-17.5) gm/dL Hct 29.0 L (39.0-53.0) % MCV 102.6 H (80.0-100.0) fL MCHC 30.7 L (31.0-37.0) g/dL RDW 16.6 H (11.5-15.5) % Plt Count 148 L (150-450) k/uL Neutrophils # 10.2 H (1.3-7.7) k/uL Sodium 132 L (137-145) mmol/L Chloride 97 L (98-107) mmol/L BUN 45 H (9-20) mg/dL Creatinine 3.20 H (0.66-1.25) mg/dL Glucose 107 H (74-99) mg/dL POC Glucose (mg/dL) (70-110) mg/dL Calcium 8.0 L (8.4-10.2) mg/dL Alkaline Phosphatase 142 H (38-126) U/L Total Protein 5.7 L (6.3-8.2) g/dL Albumin 2.9 L (3.5-5.0) g/dL Assessment and Plan Plan: Assessment: 1. Acute kidney injury secondary to ATN secondary to hypotension/cardiogenic shock. Baseline creatinine near 1. Started on hemodialysis September 09, 2023. Permacath placed September 16, 2023. Oliguric. 2. Coronary artery disease status post CABG x 3 September 02, 2023. 3. Shock now off vasopressors. 4. Cardiomyopathy with reduced ejection fraction. 5. Metabolic acidosis secondary to acute kidney injury. Improved postdialysis. Also on oral bicarb. 6. Urinary retention. Status post bladder irrigation and Hobson catheter placement. Urology following. 7. Bleeding from the access site. Status post IV DDAVP and stitch placement. Now resolved. 8. Hyponatremia secondary to acute kidney injury. Hypervolemic. Plan: Currently seen while undergoing hemodialysis. Will use 4K bath. Encouraged oral intake. Monitor for renal recovery outpatient. Phosphorus level 3.9 dated September 18, 2023.
--- NOTE | 2023-09-18 10:58 | P.PN ---
Subjective Progress Note Date: 09/18/23 63-year-old male patient, was brought into the intensive care unit after having an antibiotic balloon pump inserted this morning and this was done in preparation for coronary artery bypass surgery. The patient is known to have CAD, chronic CHF with impaired ejection fraction of 30 to 35%. The patient has been hospitalized with [facility] and an earlier cardiac catheterization from April 2023 showed a 70% left main, 70% proximal LAD, 30% circumflex and 70% obtuse marginal 1 and 60% mid RCA. The patient has impaired LV function with an EF around 30 to 35% along with mild to moderate MR, and severe pulm hypertension. The patient is scheduled to undergo coronary artery bypass surgery tomorrow. He is currently on room air oxygen. Free of any chest pain. Hemodynamically stable. Augmented blood pressure is around 80. He has some developmental delay and his other comorbid conditions include diabetes mellitus type 2, hypertension and hyperlipidemia. Blood work shows a white cell count of 9, hemoglobin 11.8, platelet count of 206, normal coagulation profile, BUN of 27 with a creatinine of 1 and sodium levels at 138. LFTs are normal. His CAT scan of the chest that was done on 07/16/2023 showed cardiomegaly with small right and left-sided pleural effusion. This is consistent with CHF. No mediastinal lymphadenopathy. The patient is seen today September 02, 2023 in follow-up in the intensive care unit following surgery. He had undergone an on pump coronary artery bypass grafting x 3 with a left internal thoracic artery sequential to diagonal and the LAD. Right SVG from the aorta to the obtuse marginal #1. Left atrial appendage ligation and clipping. He remains intubated on the mechanical ventilator and assist-control mode at a rate of 14, tidal volume 500, FiO2 40% and a PEEP of 10. He remains on propofol at 20 mcg/kg/min. Lactated Ringer's at 50 MLS per hour. He is requiring vasopressin at 0.04 units/min. Insulin drip at 1 unit/h. Norepinephrine at 0.05 mcg/kg/min. Milrinone at 0.25 mcg/kg/min intra-aortic balloon pump remains in place. Mediastinal and right and left split chest tubes remain in place. Cardiac output is 4.7. Cardiac index 2.6. Received albumin. Receiving cefazolin. Heparin for DVT prophylaxis. White count 11.7. Hemoglo bin 11.5. Platelets 84,000. INR 1.4. Sodium 141. Potassium 3.7. Bicarb 22. BUN 22. Creatinine 0.88. Glucose 101. X-ray no overt failure, pneumothorax or sizable consolidation. ABG's are pending. Patient was today on 09/03/2023, patient was extubated last night uneventfully, patient is now on 2 L nasal cannula, his intra-aortic balloon has been removed today patient remains on pressors and on inotropes. Still requiring norepinephrine at 0.02 mcg/kg/min still on milrinone 0.25 mcg/kg/min and on 0.04 units/min of vasopressin. Cardiac output today is 6.5 cardiac index is 3.7 PA pressure 41/17 CVP of 15. Continues to have mediastinal left and right-sided pleural chest tubes in place, had about 780 mL output since surgery. Chest x- ray is showing mostly postoperative changes labs were all reviewed. WBC count is 15.2 hemoglobin 9.2. Basic metabolic profile is normal, creatinine 1.10 up from 0.88 yesterday Reevaluated today on 09/04/2023, patient remains in the ICU on 3 L nasal cannula, insulin drip at 1.5 units/h still receiving norepinephrine at 0.08 mcg/kg/min milrinone 0.1 mcg/kg/min vasopressin at 0.03 units/min. Cardiac output is 5.0 cardiac index 2.8, patient remains marginal at best, he is sitting at the bedside chair, does not seem to be in distress, on 3 L nasal cannula. Chest x- ray showed no evidence of pulmonary edema no evidence of pneumonia he does have a small tiny apical left pneumothorax. WBC count is 17.7 hemoglobin 9.4. Basic metabolic profile is normal however his BUN is 34 creatinine is 1.52, apparently the patient does have sustained some acute kidney injury most likely related to hypotension/acute tubular necrosis. Patient was reevaluated today on 09/05/2023, remains in the ICU, still requiring multiple drips, he is on dopamine at 2.5 mcg/kg/min norepinephrine at 0.03 mcg/kg/min vasopressin 0.03 units/min patient is also on insulin at 1.5 units/h. Cardiac index remains low at 1.9 cardiac output is relatively low at 3.4. Pulmonary artery pressure 44/18, CVP is 12. Patient does not seem to be very much motivated, he is achieving less than 500 cc on incentive spirometry. The last patient is on 2 L nasal cannula, refusing to participate in physical activity, refusing incentive spirometry, chest tubes, remain in place, prognosis remains guarded. Chest x-ray showed mostly bibasilar atelectasis, mild interstitial prominence, I doubt left-sided pneumothorax as documented by radiology Reevaluate today on 09/06/2023, patient is basically about the same. Patient is in the ICU, he is on multiple drips including higher dose of inotrope, milrinone 0.25 he is on norepinephrine at 0.02 mcg/kg/min vasopressin at 0.03 units/min do pamine at 2.5 mcg/kg/min dobutamine at 2.5 mcg/kg/min insulin at 2.5 units an hour, urine output is low, patient received albumin cardiac index is 2.9 today cardiac output is 5.9. His renal functioning is getting a bit worse, patient apparently the patient is developing what seems to be a cardiorenal syndrome. Chest x-ray is showing atelectasis and bibasilar pleural effusions. Patient is not motivated, does not seem to be interested in getting motivated. And been doing poorly with incentive spirometry Reevaluate today on 09/06, patient is basically about the same, he is now postoperative day #5, sitting at the bedside chair, patient is not motivated what bit remains on multiple inotropes and pressors, patient is receiving dopamine at 2.5 mcg/kg/min dobutamine at 5 mcg/kg/min norepinephrine at 0.06 mcg/kg/min vasopressin at 0.03 units/min and he is also on insulin at 3.5 units/ h today he is off milrinone. Cardiac output is 3.8 cardiac index is 2.1 PA pressure 43/15 CVP is 13. Chest x-ray showed mostly atelectasis at the bases. No clear-cut evidence of pulmonary edema. Patient is maintained on 2 L nasal cannula, again the patient is doing extremely poorly with incentive spirometry and does not seem to be motivated at all. Renal functioning seems to be getting worse, his BUN is 63 creatinine 3.54, at this rate I am quite concerned with the patient may end up requiring hemodialysis. This is being addressed by nephrology on the case. Liver enzymes are improving Today on 09/08/2023, patient is now postoperative day #6. Patient is still requiring dobutamine at 0.5 mcg/kg/min, still requiring vasopressin at 0.02 units/min, his norepinephrine is presently on hold, and milrinone was discontinued. Still on insulin at 3 units/h. Surprisingly the patient is not developing congestive heart failure, but he is developing worsening renal failure, and he may end up requiring renal replacement therapy. His PA pressure 40/18, his cardiac output is 3.9 cardiac index is 2.2 chest x-ray is showing bibasilar atelectasis and small left pleural effusion with a small right pleural effusion Weems-Isabell remains in place WBC count is 6 hemoglobin 8.7 basic metabolic profile is normal except for bicarb of 15 and again worsening renal profile BUN is up to 71 creatinine 4.40 Progress note dated September 09, 2023. This is a 63-year-old male, who was seen today in room 266. The patient is status post three-vessel bypass grafting. He went to the operating room on September 01. He is currently on room air. He is receiving insulin at 2 units an hour. In addition, the patient is getting lactated Ringer's at 30 cc an hour, and dobutamine at 2.5 mcg/kg/min. The patient will have hemodialysis for the first time today. Current labs include a white count 6.8, hemoglobin 8.1, hematocrit 24.9, and a platelet count of 105,000. Sodium 135, potassium 4.6, chlorides 107, CO2 12, anion gap 16, BUN 79, creatinine 5.27. Glucose is 141. Calcium 7.6. AST is 300. ALT is 155. Albumin is 2.8. Chest x-ray shows cardiomegaly, with bilateral pleural effusions. Progress note dated September 10, 2023. This is a 63-year-old male who is seen in room 266. Currently, the patient is on room air. The patient is getting insulin drip at 3 units an hour, and continues on dobutamine for cardiovascular support at 5 mcg/kg/min. The patient is still not very motivated, to improve his overall clinical situation. He does poorly on his incentive spirometer. Current laboratory data includes a white count 8.7, hemoglobin 10 hematocrit 30.4, platelet count 119,000. Sodium 135, potassium 4.5, chlorides 104, CO2 14, anion gap 17, BUN 63, and creatinine 4.33. The most recent glucose was 127. AST is 200, ALT 141. Albumin 2.8. Calcium 7.6. The patient's chest x-ray shows some postoperative changes, but has been relatively stable. Progress note dated September 11, 2023. The patient is seen today in room 266. He is currently undergoing hemodialysis. The goal of hemodialysis today is removal of 1 L of fluid. Patient is on room air. The patient is getting saline at 20 cc an hour. The patient continues on dobutamine, for cardiovascular support at 2.5 mcg/kg/min. Current labs include a white count 11.9, hemoglobin 9.5, hematocrit 29.6, and a platelet count of 128,000. Sodium 132, potassium 4.3, chlorides 101, CO2 12, anion gap 19, BUN 53, creatinine 3.70. AST is 102. ALT is 100. Albumin is 2.8. Today's chest x-ray is very stable, and comparable to the x-ray done yesterday. Progress note dated September 12, 2023. The patient is again seen in room 266. Currently, the patient is doing about the same. The patient is on room air. He is getting saline at 20 cc an hour. He will have a permanent hemodialysis catheter placed today. Labs today include a white count 18, hemoglobin 9.8, hematocrit 30.3, and a platelet count of 142,000. Sodium 131, potassium 3.8, chlorides 99, CO2 20, BUN 46, creatinine 2.99. Glucose of 66. Albumin 2.8. The rest of the labs are reviewed. Chest x-ray shows postoperative changes, and persistent right pleural effusion with basilar atelectasis. Progress note dated September 13, 2023. The patient is seen today in room 266. Currently, the patient is on room air. He is getting saline at 20 cc an hour. The patient did have hemodialysis yesterday, and 2 L was removed. This was on September 11. The patient was to have a permanent hemodialysis catheter placed, but he apparently refused it. Current labs include a white count 23.8, hemoglobin 10, hematocrit 31.1, and platelet count 80,000. Sodium 129, potassium 3.9, chlorides 95, CO2 22, BUN 39, creatinine 3.0. Glucose was 126. Calcium 7.8. Total bilirubin 2.3. Albumin is 2.9. No chest x-ray today. Progress note dated September 14, 2023. The patient is again seen today in room 266. Currently he is on room air. The patient is not receiving any IV fluids. He did have hemodialysis yesterday. 1 L was removed, on September 12. He has no specific complaints today. Still doing very poorly on his incentive spirometer. Current labs include a white count 27.2, hemoglobin 9.7, hematocrit 31, and platelet count 69,000. Sodium 129, potassium 4.1, chloride 95, CO2 21, BUN 40, creatinine 2.83. Glucose is 207. Calcium 7.7. Phosphorus 4.7. Magnesium 1.9. Albumin 2.9. Chest x-ray shows some mild fluid overload. The chest x-ray is essentially unchanged. Progress note dated September 15, 2023. The patient is seen today in room 266. Currently he is on room air. He is not requiring any IV fluids. The patient did have hemodialysis yesterday, and 2 L was removed. The patient will have a permanent hemodialysis catheter placed tomorrow. Current labs include a white count 21.9, hemoglobin 10, hematocrit 32.7, and a platelet count of 73,000. Sodium 130, potassium 3.7, chlorides 97, CO2 25, BUN 37, and creatinine 2.58. Albumin is 2.7. Glucose is 128. Urine culture shows evidence of gram-negative bacilli. He was placed on Rocephin yesterday. Chest ultrasound shows a small 4.5 cm pocket on the right. Chest x- ray shows postsurgical changes, and a small right-sided pleural effusion. On today's evaluation on 09/16/2023, the patient is resting comfortably on a c hair. The patient is calm and comfortable. No significant events overnight. The patient is having a low urine output and the patient is going to undergo a permacath insertion today. The patient is calm and comfortable without any signs of respiratory distress. He is using incentive spirometer and pulling approximately 500. He remains in normal sinus rhythm. The chest x-ray is showing postsurgical changes with small bilateral pleural effusions. Hobson catheter still in place. Urine culture is showing E. coli and the patient remains on IV Rocephin. The patient's white cell count is at 15.5 with a hemoglobin of 9.7 and a platelet count of 109. Sodium is at 132, potassium is 3.6, BUN is 48 with a creatinine of 3.34 which is slightly higher compared to yesterday. The patient remains on aspirin, patient is also on metoprolol 12.5 mg p.o. twice a day. He is on Levemir insulin 50 units along with sliding scale insulin coverage. He is on oral bicarb supplements. The patient is currently postop day #15 following a three-vessel bypass surgery. The patient sustained an acute kidney injury postop requiring dialysis. He did not also encountered cardiogenic shock which essentially recovered. On today's evaluation of 09/17/2023, the patient is being seen for a follow-up. The patient is following coronary artery bypass surgery and the patient is postop day #16 following a three-vessel bypass surgery. He sustained acute kidney injury postop requiring hemodialysis. A permacath was inserted yesterday. The patient is doing well on room air oxygen. Denies having any significant respiratory distress. The patient's chest x-ray is showing some CHF which is stable in appearance with increased interstitial pattern bilaterally. The patient was started on hemodialysis via permacath yesterday. The permacath was inserted and the patient was given a hemodialysis session of 1.8 L. Another session of hemodialysis to be done today. Meanwhile, the white cell count is at 17 and this remains elevated as the patient suspected to have urine tract infection with E. coli the patient remains on IV Rocephin. Hemoglobin of 8.8 and a platelet count of his 123. Creatinine is down to 2.37 with a BUN of 35 and a sodium level of 132. No other significant events overnight. The patient is on Levemir insulin 15 units and sliding scale insulin coverage. The patient on metoprolol 12.5 mg p.o. twice a day in addition to aspirin and Plavix. He is on midodrine for hypotension. On today's evaluation of 09/18/2023, the patient is awake and alert on room air oxygen. The patient is undergoing hemodialysis. Denies having any specific complaints. No respiratory difficulties. The chest x-ray was done today and the patient was not found to have any significant abnormalities other than some cardiomegaly and the hemodialysis catheter in the right lung. There is some increased interstitial vascular markings and small bilateral pleural effusions. No evidence of any pneumothorax. Hemoglobin is at 8.9 with a white cell count of 12.8 and a platelet count of 148. BUN is at 45 with a creatinine of 3.2 and a sodium levels at 132. No other significant events otherwise for now. Cardiac rhythm remained sinus. Blood sugar management is also adequate. The patient remains on aspirin and Plavix. The patient on midodrine for blood pressure control.The patient remains on the same dose of metoprolol 12.5 mg twice a day. Patient is also on oral bicarb. Objective - Vital Signs Vital signs: Vital Signs Temp 97.8 F 09/18/23 08:00 Pulse 76 09/18/23 08:00 Resp 10 L 09/18/23 08:00 BP 108/68 09/18/23 08:00 Pulse Ox 97 09/18/23 08:00 FiO2 40 09/02/23 20:33 Intake & Output 09/17/23 09/18/23 09/18/23 18:59 06:59 18:59 Intake Total 3698 520 168 Output Total 823 111 5 Balance 2875 409 163 Weight 87.7 kg 87.7 kg Intake: IV 50 50 cefTRIAXone 2 gm In 50 50 Sodium Chloride 0.9% 50 ml @ 100 mls/hr IVPB Q24HR [facility] Rx#:[id number] Oral 898 520 118 Hemodialysis 2750 Output: Urine 73 111 5 Hemodialysis 750 Other: Voiding Method Indwelling Catheter Indwelling Catheter ABP, PAP, CO, CI - Last Documented Arterial Blood Pressure 83/58 Pulmonary Artery Pressure 45/17 Cardiac Output 3.5 Cardiac Index 2 - Exam CONSTITUTIONAL: Sitting up to the bedside chair in the intensive care unit, appears comfortable, cooperative, no apparent acute distress. HEENT: Neck is supple, no JVD, no lymphadenopathy. RESPIRATORY: Lungs sounds essentially clear throughout, diminished to his bilateral bases. Respirations are symmetrical and nonlabored. Currently on room air with oxygen saturations 98%. Able to achieve 500 mL on his incentive spirometry with encouragement and instruction. Weak cough. CARDIOVASCULAR: Regular rhythm and rate. S1 and S2 present, negative for S3, gallop or murmur. Bedside telemetry showing normal sinus rhythm heart rate 71 bpm. Sternum is stable. Palpable peripheral pulses bilaterally, +1 edema generalized. No calf pain or tenderness noted. Heart hugger in place with patient demonstrating appropriate use with much encouragement. Knee-high VARUN hose and sequential compression devices in place to his bilateral lower extremities. GASTROINTESTINAL: Abdomen soft, nontender, nondistended. Active bowel sounds present 4 quadrants. Tolerating diet. Passing flatus. No guarding or rigidity. Bowel movement yesterday 09/17/2023. GENITOURINARY: Hemodialysis September 16, 2023 with 1887 mL of ultrafiltration compl eted. Hobson catheter in place for urine retention, urine output in the last 8 hours is 85 mL. INTEGUMENTARY: Skin is warm and dry with no evidence of clubbing or cyanosis. Midline sternal incision clean dry and well approximated, covered with dry intact dressing. Bilateral lower extremity EVH sites well approximated without redness or drainage. Erythema to his coccyx, dressing clean, dry and intact. NEUROLOGIC: Cranial nerves II through XII intact. MUSKULOSKELETAL: Able to move all extremities, strength equal bilaterally, generalized weakness. PSYCHIATRIC: Alert and oriented to person place and disoriented to time, appropriate affect. - Labs CBC & Chem 7: 09/18/23 06:16 09/18/23 06:16 Labs: Abnormal Lab Results - Last 24 Hours (Table) 09/17/23 09/17/23 09/17/23 Range/Units 11:51 16:49 20:04 WBC (3.8-10.6) k/uL RBC (4.30-5.90) m/uL Hgb (13.0-17.5) gm/dL Hct (39.0-53.0) % MCV (80.0-100.0) fL MCHC (31.0-37.0) g/dL RDW (11.5-15.5) % Plt Count (150-450) k/uL Neutrophils # (1.3-7.7) k/uL Sodium (137-145) mmol/L Chloride (98-107) mmol/L BUN (9-20) mg/dL Creatinine (0.66-1.25) mg/dL Glucose (74-99) mg/dL POC Glucose (mg/dL) 218 H 235 H 238 H (70-110) mg/dL Calcium (8.4-10.2) mg/dL Alkaline Phosphatase (38-126) U/L Total Protein (6.3-8.2) g/dL Albumin (3.5-5.0) g/dL 09/17/23 09/18/23 09/18/23 Range/Units 20:16 05:29 05:47 WBC (3.8-10.6) k/uL RBC (4.30-5.90) m/uL Hgb (13.0-17.5) gm/dL Hct (39.0-53.0) % MCV (80.0-100.0) fL MCHC (31.0-37.0) g/dL RDW (11.5-15.5) % Plt Count (150-450) k/uL Neutrophils # (1.3-7.7) k/uL Sodium (137-145) mmol/L Chloride (98-107) mmol/L BUN (9-20) mg/dL Creatinine (0.66-1.25) mg/dL Glucose (74-99) mg/dL POC Glucose (mg/dL) 231 H 64 L 65 L (70-110) mg/dL Calcium (8.4-10.2) mg/dL Alkaline Phosphatase (38-126) U/L Total Protein (6.3-8.2) g/dL Albumin (3.5-5.0) g/dL 09/18/23 09/18/23 Range/Units 06:16 06:16 WBC 12.8 H (3.8-10.6) k/uL RBC 2.83 L (4.30-5.90) m/uL Hgb 8.9 L (13.0-17.5) gm/dL Hct 29.0 L (39.0-53.0) % MCV 102.6 H (80.0-100.0) fL MCHC 30.7 L (31.0-37.0) g/dL RDW 16.6 H (11.5-15.5) % Plt Count 148 L (150-450) k/uL Neutrophils # 10.2 H (1.3-7.7) k/uL Sodium 132 L (137-145) mmol/L Chloride 97 L (98-107) mmol/L BUN 45 H (9-20) mg/dL Creatinine 3.20 H (0.66-1.25) mg/dL Glucose 107 H (74-99) mg/dL POC Glucose (mg/dL) (70-110) mg/dL Calcium 8.0 L (8.4-10.2) mg/dL Alkaline Phosphatase 142 H (38-126) U/L Total Protein 5.7 L (6.3-8.2) g/dL Albumin 2.9 L (3.5-5.0) g/dL Assessment and Plan Plan: Multivessel coronary artery disease and the patient is S/P three-vessel bypass grafting. Patient is postop day # 15 Postthoracotomy and the surgical wound is clean and the patient's chest rhythm removed. Small bilateral pleural effusions on follow-up chest x-ray. The patient is undergoing hemodialysis. Chronic systolic CHF, with an ejection fraction of 30 to 35%. The patient is currently on aspirin, Plavix, and the patient is also on metoprolol 12.5 mg p.o. twice a day. Cardiogenic shock and severe LV dysfunction, recovered Acute kidney injury, requiring hemodialysis and the patient is status post per macath catheter insertion last dialysis the patient undergoing periodic hemodialysis. E. coli/gram-negative bacillary urinary tract infection. Patient has a Hobson catheter in place and the patient is on IV Rocephin, white cell count is improved Leukocytosis, improving Peripheral vascular disease. Type 2 diabetes mellitus. Essential hypertension. Hyperlipidemia. History of developmental delay. Bipolar disorder. Chronic anxiety. Prior history of tobacco use. Plan: The patient will continue aggressive pulmonary toileting and using the incentive spirometer on daily basis. Continue metoprolol 12.5 mg twice a day Continue aspirin and Plavix Hemodialysis in progress today Avoid nephrotoxic agents Hobson catheter will be kept in place pending urology consultation Continue IV Rocephin regarding E. coli urinary tract infection Hemodialysis per nephrology Continue midodrine 5 mg p.o. 3 times daily Oral bicarb supplements Statins are on hold based on some disturbances in his liver function test Will continue to follow
[2023-09-18 11:55] LABS: Glucose,Whole Blood 89 mg/dL (70-110)
--- NOTE | 2023-09-18 15:19 | CDI ---
Documentation Clarification Form Date: 09/18/2023 01:34:07 PM From: Erinn Vincent RN CCDS Phone: [phone] Admit Date: 09/01/2023 09:03:00 AM Patient Name: Wes Burgess Visit Number: [id number] Discharge Date: ATTENTION: The Clinical Documentation Specialists (CDI) and [facility] Coding Staff appreciate your assistance in clarifying documentation. Please respond to the clarification below the line at the bottom and electronically sign. The CDI & [facility] Coding staff will review the response and follow-up if needed. Please note: Queries are made part of the Legal Health Record. If you have any questions, please contact the author of this message via ITS. Dr. Hammer E Hector UTI is documented and patient has a breaux catheter. Additional clarification regarding the etiology of the UTI is requested. History/Risk Factors: 63-year-old male presents for elective CABG. Medical History CAD, Chronic CHF, DM2, HTN, history of smoking 20 years ago and HLD. 08/31, Cardiothoracic Surgery. Clinical Indicators: Urinalysis:09/12 Dark brown, Turbid, PH 5.5, Protein 2+, Glucose 1+, Blood Large, Leukocyte esterase Large, WBC >182, RBC >182, Bacteria Few, Hyaline casts 28, Mucus rare. Urine culture: 09/12 Escherichia coli Wbc, 09/12: 23.8 Urology consult, 09/14: Bladder scan showed 400ml but catheter only obtained 50ml. Bladder scan showed 400 mL but catheter only obtained 50 mL. I was able to irrigate the catheter without difficulty this morning there was some debris within the bladder. Bladder scan might be inaccurate secondary to abdominal ascites. At this point the catheter is functioning and draining without any difficulties. Recommend keeping the Breaux catheter in until acute kidney injury resolves. Urology, 09/14: Urinary retention: 60 mL of sterile saline was pushed into the bladder using a Golden syringe, I was able to aspirate 60 mL back with some debris without any difficulty. Patient tolerated procedure well 09/15 Pulmonology note: Breaux catheter in place for urine retention, urine output in the last 8 hours is 85ml. Treatment: 09/13 Cefazolin 1,000mg IVPB x 1; 09/13 Ceftriaxone 2gm IVPB Q24H, Urology consult above. Please clarify the etiology of the UTI, if known: [ ] Breaux catheter [ ] UTI related to the urine retention [ ] Other condition, please specify [ x ] Unable to determine (Template Last Revised: August 2020) MTDD
--- NOTE | 2023-09-18 15:19 | CDI ---
Documentation Clarification Form Date: 09/18/2023 01:34:07 PM From: Erinn Vincent Phone: [phone] Admit Date: 09/01/2023 09:03:00 AM Patient Name: Wes Burgess Visit Number: [id number] Discharge Date: ATTENTION: The Clinical Documentation Specialists (CDI) and [facility] Coding Staff appreciate your assistance in clarifying documentation. Please respond to the clarification below the line at the bottom and electronically sign. The CDI & [facility] Coding staff will review the response and follow-up if needed. Please note: Queries are made part of the Legal Health Record. If you have any questions, please contact the author of this message via ITS. Dr. Hammer E Sheet Postoperative hypoxic respiratory failure is documented 09/13, Medicine note, and patient had 3 vessel CABG. Additional clarification is requested regarding the relationship, if any, that exists between the diagnosis and the procedure. Patients Admitting Diagnosis: 3V CAD, Left main CAD, CHF, DM, HTN, HLD, Bipolar, MO Post-Operative Diagnosis: Same as Admitting Procedure performed: On pump coronary artery bypass grafting x 3. Left internal thoracic artery (n-situ) sequential to diagonal and left anterior descending coronary artery. Right greater saphenous vein from aorta to obtuse marginal artery #1 Left atrial appendage ligation wth #35mm AtriClip. Endoscopic bilateral greater saphenous vein harvest. Graft flow measurements. Trans esophageal ech. History/Risk Factors: 63-year-old male presents for elective CABG. Medical History CAD, Chronic CHF, DM2, HTN, history of smoking 20 years ago and HLD. 08/31, Cardiothoracic Surgery. Clinical Indicators: CXR 09/01 Postoperative changes CXR 09/02 Postoperative change correlate for mild venous congestion CXR 09/03 Interval developing 5% left pneumothorax. Postsurgical changes of basilar atelectasis CXR 09/08 Stable exam with cardiomegaly and bilateral pleural effusion. 09/01 21:08 Extubated from Mechanical Ventilator BP 103/41, HR 93, RR 13, SpO2 100% 4Lnc 09/02 00:00: BP 100/38, RR 10, HR 90, SpO2 2L nasal cannula 09/02 08:00: RR 19, SpO2 2L nasal cannula 09/03 04:00: RR 12; SpO2 100% 3L nasal cannula 09/03 16:00 RR 11; SpO2 100% 2L nasal cannula 09/04, Pulmonary note : Patient does not seem to be very much motivated, he is achieving less than 500cc on the incentive spirometry. 09/08, Pulm lung assessment: Diminished breath sounds bilaterally no rhonchi no wheezes Treatment: 09/01 09/08 2L Nasal cannula Consults: What relationship, if any, exists between the diagnosis of Hypoxic Respiratory Failure and the procedure: [ ] Hypoxic Respiratory failure is a complication of surgical procedure [ ] Hypoxic Respiratory failure is an expected outcome of the surgical procedure [x ] Hypoxic Respiratory failure is related to patients co-morbid condition(s) of nicotine dependence with an FEV1 of 55% of predicted value and a base volume of 1.3, Cardiomyopathy, doing poorly with incentive spirometer, morbidly obese and anxiety & not a complication of the procedure [ ] Other please specify ____ [ ] Unable to determine (Template Last Revised: August 2020) MTDD
--- NOTE | 2023-09-18 15:20 | CDI ---
Documentation Clarification Form Date: 09/18/2023 03:09:58 PM From: Erinn Vincent RN CCDS Phone: [phone] Admit Date: 09/01/2023 09:03:00 AM Patient Name: Wes Burgess Visit Number: [id number] Discharge Date: ATTENTION: The Clinical Documentation Specialists (CDI) and [facility] Coding Staff appreciate your assistance in clarifying documentation. Please respond to the clarification below the line at the bottom and electronically sign. The CDI & [facility] Coding staff will review the response and follow-up if needed. Please note: Queries are made part of the Legal Health Record. If you have any questions, please contact the author of this message via ITS. Dr. Harman Young A Stage 2 coccyx pressure ulcer is documented by Nursing in Pressure ulcer assessment, 09/13. Based on this information and the findings below, is there an additional diagnosis that is clinically appropriate for this patient? History/Risk Factors: 63-year-old male presents for elective CABG. Medical History CAD, Chronic CHF, DM2, HTN, history of smoking 20 years ago and HLD. 08/31, Cardiothoracic Surgery. Clinical Indicators: Location: Coccyx Wound description: Dry and intact Treatment: Specialty Bed, Check hourly, Foam with border, Absorbent underpad, Barrier protection. Is there an additional diagnosis that is clinically appropriate for this patient? [ x] Coccyx Pressure Ulcer Stage 2 [ ] Other condition, please specify [ ] Unable to determine Clinical Definitions: Stage 1 Pressure Ulcer: intact skin, non-blanching redness of local area Stage 2 Pressure Ulcer: Partial thickness, loss of dermis, pink wound bed Stage 3 Pressure Ulcer: Full thickness tissue loss Stage 4 Pressure Ulcer: Full thickness tissue loss with exposed bone, tendon, or muscle. Unstageable pressure ulcer: Full thickness tissue loss in which the base of the ulcer is covered by slough (yellow, ames, mathew, green or brown) and/or eschar (ames, brown or black) in the wound bed. (Template Last Revised: August 2020) MTDD
[2023-09-18 16:24] LABS: Glucose,Whole Blood 120 mg/dL (70-110)
[2023-09-18 20:27] LABS: Glucose,Whole Blood 155 mg/dL (70-110)
[2023-09-18] MEDS: INSULIN DETEMIR (LEVEMIR) 100 UNIT/ML SYR SQ SCH (20:34)
--- NOTE | 2023-09-18 21:26 | P.PN ---
Subjective Progress Note Date: 09/08/23 63-year-old gentleman with past medical history significant for coronary artery disease, chronic congestive heart failure with ejection fraction of 30%, hypertension hyperlipidemia diabetes mellitus obesity bipolar disorder cardiomyopathy developmental delay history of nicotine dependence who has been admitted with shortness of breath and lower extremity edema. Patient underwent cardiac catheterization right heart catheterization and intra-aortic balloon pump. * Patient has comorbidities including diabetes mellitus type 2, peripheral arterial disease, bipolar disorder, history of anxiety. * Patient to undergo myocardial revascularization 09/02/2023. * 09/03/23 : Patient admitted to medical ICU. Patient was successfully extubated postprocedure. S/p intra-aortic balloon pump which remains in place through right femoral access. Patient remains on norepinephrine drip, Primacor drip, vasopressin. Bilateral chest tubes remained in place. Followed up by medical ICU and cardiac surgery. Follow-up blood work obtained including WBC 15.2 hemoglobin 9.2 platelet count of 98, serum chemistry sodium 141 potassium 4.7 carbon dioxide 24 BUN 26 creatinine 1.1 blood glucose 118-1 33 * 09/04/23: Patient seen and evaluated in medical ICU room 266, patient continues to remain on Levophed, vasopressin and pressor support. Blood work reviewed WBC 17.7 hemoglobin 9.4 platelet 117. Serum chemistry showed sodium 137 potassium 4.9 carbon dioxide 18 BUN 34 creatinine 1.52 blood glucose 123. Overnight patient was refusing to participate with care, patient counseled by cardiac surgery team as well. Brother at bedside, patient does follow co mmands, care plan discussed with nursing staff * 09/05/23: Patient seen and evaluated bedside, vitals reviewed blood pressure running in the 90s overnight. Patient remains on 2 L of oxygen. Blood work reviewed CBC shows WBC 14.3 hemoglobin 9.3 platelet 105 serum chemistry sodium 137 potassium 5.2 carbon dioxide 16 BUN 44 creatinine 1.99 total bilirubin 1.3 AST 464 ALT 128 will need to be monitored, p.atient remains lethargic however easily arousable 09/06/2023 -- Patient is seen and evaluated in ICU at bedside Vital signs reviewed and temperature of 97.9, pulse 90, respiration 14 and blood pressure of 110/40 Lab review shows WBC 14.2, hemoglobin of 8.7 and platelet count of 109, sodium 136, potassium 4.8, BUNs/creatinine of 54/2.91; concern about worsening renal fu nction likely related to cardiorenal syndrome; dopamine has been discontinued Chest x-ray reveals atelectasis and bibasilar pleural effusion --Patient remains on pressors and inotropic agents; cardiac index and cardiac output is being monitored closely -Patient remains on Plavix, aspirin, statins and beta-blockers -- Recommended to increase activity 09/07/2023 ---patient is basically about the same, he is now postoperative day #5, sitting at the bedside chair, patient is not motivated what bit remains on multiple inotropes and pressors, patient is receiving dopamine at 2.5 mcg/kg/min dobutamine at 5 mcg/kg/min norepinephrine at 0.06 mcg/kg/min vasopressin at 0.03 units/min and he is also on insulin at 3.5 units/h today he is off milrinone. Chest x-ray showed mostly atelectasis at the bases. No clear-cut evidence of pulmonary edema. Patient is maintained on 2 L nasal cannula, again the patient is doing extremely poorly with incentive spirometry and does not seem to be motivated at all. Renal functioning seems to be getting worse, his BUN is 63 creatinine 3.54, at this rate I am quite concerned with the patient may end up requiring hemodialysis. This is being addressed by nephrology on the case. Liver enzymes are improving Continue pressors and inotropes continue to monitor cardiac index and cardiac output Continue dopamine, continue dobutamine, patient is off milrinone today. However he is still requiring norepinephrine and vasopressin Continue Plavix beta-blockers aspirin and statin Titrate pressors and inotropes as tolerated 09/08/2023 --patient is seen and evaluated with family at bedside; now postoperative day # 6. -- Patient is still requiring dobutamine at 0.5 mcg/kg/min, still requiring vasopressin at 0.02 units/min, his norepinephrine is presently on hold, and milrinone was discontinued. Still on insulin at 3 units/h. -- chest x-ray is showing bibasilar atelectasis and small left pleural effusion with a small right pleural effusion -- WBC count is 6 hemoglobin 8.7 basic metabolic profile is normal except for bicarb of 15 and again worsening renal profile BUN is up to 71 creatinine 4.40 -Renal function continues to worsen; nephrology on board and planning to continue with IV Lasix and oral sodium bicarbonate; plan for possible hemodialysis in a.m. if urine output does not improve 09/09/2023 Patient is awake alert but looks very tired and lethargic lying in chair. No significant chest pain. Patient has average appetite No significant dyspnea but looks very weak Patient required pressors Patient planned and considered for hemodialysis given his worsening renal function today 5.2 compared with 1.5 upon admission He has severe cardiomyopathy with ejection fraction 20 to 25% and currently on aspirin and Plavix and amiodarone drip. Also he required pressors as above, cardiology following closely. 09/10/2023 Patient still lethargic still sitting in chair No much difference clinically from yesterday A plan to undergo hemodialysis today for first-line, hemodialysis catheter in place. Patient is oliguric. He is currently getting dobutamine and insulin drip 3 units/h He is also on aspirin and Plavix and metoprolol 09/11/2023 Patient remains very lethargic No new complaint He remains on dobutamine drip at 2.5 He is getting the third round of hemodialysis today His insulin drip switched to sliding scale and Levemir Continue with dual antiplatelet therapy Labs showing stable hemoglobin 9.5. Platelet 1 28,000 09/12/2023 Patient looks more awake and alert today, he still generally weak sitting up in chair. No chest pain no dyspnea, no other specific complaint he Is getting hemodialysis. Creatinine down to 2.9. Hemoglobin stable, platelet count stable. He was started on Levemir 14 and twice daily yesterday, his sugar was on the low side this morning therefore we are going to lower the dose to Levemir 15 units at bedtime with close monitoring. Started also on sodium bicarb ] I am resuming the care of the patient on 09/16/2022 Patient looks more energetic relaxed and sitting up in bed compared to last week He denies any specific complaint Hobson catheter in place No chest pain or dyspnea He is on ceftriaxone, urine culture growing E. coli. Patient has leukocytosis about 17,000 Also his sugars controlled on Levemir 15 units increased today to 17 units Rest of labs reviewed and they are stable. Creatinine 2.3 and patient had permacath placed yesterday undergoing hemodialysis 09/18/2023 No chest pain no dyspnea No abdominal pain and tolerates diet well He still on ceftriaxone for sensitive E. coli in the urine culture Is on aspirin and Plavix and metoprolol Hemodialysis per nephrology Sugar slightly on the low side so we lowered his Levemir to 15 units daily Objective - Vital Signs Vital signs: Vital Signs Temp 97.8 F 09/18/23 12:00 Pulse 72 09/18/23 12:00 Resp 19 09/18/23 12:00 BP 102/61 09/18/23 12:00 Pulse Ox 96 09/18/23 12:00 FiO2 40 09/02/23 20:33 Intake & Output 09/17/23 09/18/23 09/18/23 18:59 06:59 18:59 Intake Total 3698 520 908 Output Total 491 630 7776 Balance 6851 409 -1112 Weight 87.7 kg 87.7 kg Intake: IV 50 50 cefTRIAXone 2 gm In 50 50 Sodium Chloride 0.9% 50 ml @ 100 mls/hr IVPB Q24HR [facility] Rx#:[id number] Oral 898 520 358 Hemodialysis 2750 500 Output: Urine 73 111 20 Hemodialysis 750 2000 Other: Voiding Method Indwelling Catheter Indwelling Catheter Indwelling Catheter ABP, PAP, CO, CI - Last Documented Arterial Blood Pressure 83/58 Pulmonary Artery Pressure 45/17 Cardiac Output 3.5 Cardiac Index 2 - Exam -GENERAL: The patient is alert and oriented x3, not in any acute distress. Well developed, well nourished. Lethargic and weak HEENT: Pupils are round and equally reacting to light. EOMI. No scleral icterus. No conjunctival pallor. Normocephalic, atraumatic. No pharyngeal erythema. No thyromegaly. CARDIOVASCULAR: S1 and S2 present. No murmurs, rubs, or gallops. PULMONARY: Chest is clear to auscultation, no wheezing , no crackles. ABDOMEN: Soft, nontender, nondistended, normoactive bowel sounds. No palpable organomegaly. MUSCULOSKELETAL: No joint swelling or deformity. -EXTREMITIES: No cyanosis, clubbing, bilateral pitting leg edema.-follow-up with wound service at the [facility] We recommend close monitoring of this metabolic panel (BMP ) while patient is on Lasix, also monitoring of complete cell count (CBC) NEUROLOGICAL: Gross neurological examination did not reveal any focal deficits. SKIN: No rashes. no petechiae. - Labs CBC & Chem 7: 09/18/23 06:16 09/18/23 06:16 Labs: Abnormal Lab Results - Last 24 Hours (Table) 09/17/23 09/17/23 09/17/23 Range/Units 16:49 20:04 20:16 WBC (3.8-10.6) k/uL RBC (4.30-5.90) m/uL Hgb (13.0-17.5) gm/dL Hct (39.0-53.0) % MCV (80.0-100.0) fL MCHC (31.0-37.0) g/dL RDW (11.5-15.5) % Plt Count (150-450) k/uL Neutrophils # (1.3-7.7) k/uL Sodium (137-145) mmol/L Chloride (98-107) mmol/L BUN (9-20) mg/dL Creatinine (0.66-1.25) mg/dL Glucose (74-99) mg/dL POC Glucose (mg/dL) 235 H 238 H 231 H (70-110) mg/dL Calcium (8.4-10.2) mg/dL Alkaline Phosphatase (38-126) U/L Total Protein (6.3-8.2) g/dL Albumin (3.5-5.0) g/dL 09/18/23 09/18/23 09/18/23 Range/Units 05:29 05:47 06:16 WBC 12.8 H (3.8-10.6) k/uL RBC 2.83 L (4.30-5.90) m/uL Hgb 8.9 L (13.0-17.5) gm/dL Hct 29.0 L (39.0-53.0) % MCV 102.6 H (80.0-100.0) fL MCHC 30.7 L (31.0-37.0) g/dL RDW 16.6 H (11.5-15.5) % Plt Count 148 L (150-450) k/uL Neutrophils # 10.2 H (1.3-7.7) k/uL Sodium (137-145) mmol/L Chloride (98-107) mmol/L BUN (9-20) mg/dL Creatinine (0.66-1.25) mg/dL Glucose (74-99) mg/dL POC Glucose (mg/dL) 64 L 65 L (70-110) mg/dL Calcium (8.4-10.2) mg/dL Alkaline Phosphatase (38-126) U/L Total Protein (6.3-8.2) g/dL Albumin (3.5-5.0) g/dL 09/18/23 Range/Units 06:16 WBC (3.8-10.6) k/uL RBC (4.30-5.90) m/uL Hgb (13.0-17.5) gm/dL Hct (39.0-53.0) % MCV (80.0-100.0) fL MCHC (31.0-37.0) g/dL RDW (11.5-15.5) % Plt Count (150-450) k/uL Neutrophils # (1.3-7.7) k/uL Sodium 132 L (137-145) mmol/L Chloride 97 L (98-107) mmol/L BUN 45 H (9-20) mg/dL Creatinine 3.20 H (0.66-1.25) mg/dL Glucose 107 H (74-99) mg/dL POC Glucose (mg/dL) (70-110) mg/dL Calcium 8.0 L (8.4-10.2) mg/dL Alkaline Phosphatase 142 H (38-126) U/L Total Protein 5.7 L (6.3-8.2) g/dL Albumin 2.9 L (3.5-5.0) g/dL Assessment and Plan Assessment: Acute on chronic systolic ejection of congestive heart failure with ejection fraction worsened 35% down to 25% Cardiogenic shock Acute kidney injury requiring hemodialysis Peripheral vascular disease Hypertension Hyperlipidemia Diabetes mellitus Bipolar disorder Plan: Continue with pressors per legal word processor will follow the clinical case closely Pulmonary/critical care team Continue with insulin Levemir 17 units Continue with amiodarone and aspirin and Plavix On metoprolol Continue with hemodialysis per blueprint assembler Several consultants on the case DVT prophylaxis with subcutaneous heparin GI prophylaxis with Protonix Prognosis is guarded
[2023-09-19 06:06] LABS: Glucose,Whole Blood 54 mg/dL (70-110)
[2023-09-19 06:24] LABS: Anisocytosis Slight; HCT 31.4 % (39.0-53.0); HGB 9.4 gm/dL (13.0-17.5); Hypochromasia Marked; MCH 30.6 pg (25.0-35.0); MCHC 29.9 g/dL (31.0-37.0); MCV 102.2 fL (80.0-100.0); Macrocytosis Moderate; Mean Platelet Volume 8.4; Platelet Count 199 k/uL (150-450); RBC 3.08 m/uL (4.30-5.90); RDW 16.2 % (11.5-15.5); WBC 13.1 k/uL (3.8-10.6)
[2023-09-19 06:30] LABS: Glucose,Whole Blood 62 mg/dL (70-110)
[2023-09-19 06:45] LABS: African American GFR (CKD) 32 (>60 ml/min/1.73 sqM); Anion Gap 10 mmol/L; Blood Urea Nitrogen 31 mg/dL (9-20); Calcium 8.4 mg/dL (8.4-10.2); Carbon Dioxide 28 mmol/L (22-30); Chloride 97 mmol/L (98-107); Glucose 62 mg/dL (74-99); Magnesium 1.9 mg/dL (1.6-2.3); Non-African American GFR(CKD) 28 (>60 ml/min/1.73 sqM); Potassium 3.9 mmol/L (3.5-5.1); Sodium 135 mmol/L (137-145)
[2023-09-19 06:56] LABS: Glucose,Whole Blood 86 mg/dL (70-110)
--- NOTE | 2023-09-19 08:21 | XR ---
EXAMINATION TYPE: XR chest 1V portable DATE OF EXAM: 09/19/2023 COMPARISON: 09/18/2023 HISTORY: Shortness of breath TECHNIQUE: Single frontal view of the chest is obtained. FINDINGS: Right-sided dialysis catheter the tip overlying the right atrium. Diffuse interstitial pat tern, bilateral consolidation and pleural effusion. Postsurgical changes. Arthropathy of the shoulder s. Osseous structures are stable. IMPRESSION: Diffuse pleural-parenchymal changes favor CHF with pulmonary edema. ARDS or diffuse pneu monia also in the differential diagnosis.
--- NOTE | 2023-09-19 09:53 | P.PN ---
Subjective Progress Note Date: 09/19/23 The patient is a 63-year-old male who is currently admitted after undergoing coronary bypass. The patient is currently on hemodialysis and had a PermCath placed for long-term management after acute kidney injury. The patient is more alert today and states he is feeling better every day. He is awaiting placement at local rehab facility. Currently the patient is undergoing dialysis on Saturday and Saturday, with significant improvement in his kidney function over the last 48 hours. Patient was interviewed and examined sitting up in a recliner chair. He denies any current pain or shortness of breath. He denies any dizziness or lightheadedness when getting up to the chair. He states his pain is well- controlled. GENERAL: Well-appearing, well-nourished and in no acute distress. NECK: Supple without JVD or thyromegaly. LUNGS: Breath sounds diminished to auscultation bilaterally. Respiration equal and unlabored. Fine crackles noted in the left lower lung base. HEART: Regular rate and rhythm without murmurs, rubs or gallops. S1 and S2 heard. heart hugger in place. EXTREMITIES: Normal range of motion, +2 lower extremity pitting edema. No clubbing or cyanosis. Peripheral pulses intact and strong. TELEMETRY: Sinus rhythm overnight IMPRESSION: Multivessel coronary artery disease Status post coronary bypass Acute kidney injury, on dialysis Urinary tract infection PLAN: continue supportive treatment including aggressive pulmonary hygiene Encourage ambulation No further recommendations from the cardiac standpoint Outpatient follow-up with primary phosphoric acid supervisor Dr. Monreal I am dictating on behalf of Dr Rome Bates's history/physical and assessment/plan. Objective - Vital Signs Vital signs: Vital Signs Temp 97.7 F 09/19/23 08:00 Pulse 76 09/19/23 09:00 Resp 16 09/19/23 09:00 BP 98/54 09/19/23 09:00 Pulse Ox 97 09/19/23 08:00 FiO2 40 09/02/23 20:33 Intake & Output 09/18/23 09/19/23 09/19/23 18:59 06:59 18:59 Intake Total 1266 360 Output Total 2050 59 Balance -784 301 Weight 87.7 kg 87.4 kg Intake: IV 50 cefTRIAXone 2 gm In 50 Sodium Chloride 0.9% 50 ml @ 100 mls/hr IVPB Q24HR [facility] Rx#:[id number] Oral 716 360 Hemodialysis 500 Output: Urine 50 59 Hemodialysis 2000 Other: Voiding Method Indwelling Catheter Indwelling Catheter Indwelling Catheter ABP, PAP, CO, CI - Last Documented Arterial Blood Pressure 83/58 Pulmonary Artery Pressure 45/17 Cardiac Output 3.5 Cardiac Index 2 - Labs CBC & Chem 7: 09/19/23 05:58 09/19/23 05:58 Labs: Abnormal Lab Results - Last 24 Hours (Table) 09/18/23 09/18/23 09/19/23 Range/Units 16:22 20:25 05:58 WBC 13.1 H (3.8-10.6) k/uL RBC 3.08 L (4.30-5.90) m/uL Hgb 9.4 L (13.0-17.5) gm/dL Hct 31.4 L (39.0-53.0) % MCV 102.2 H (80.0-100.0) fL MCHC 29.9 L (31.0-37.0) g/dL RDW 16.2 H (11.5-15.5) % Sodium (137-145) mmol/L Chloride (98-107) mmol/L BUN (9-20) mg/dL Creatinine (0.66-1.25) mg/dL Glucose (74-99) mg/dL POC Glucose (mg/dL) 120 H 155 H (70-110) mg/dL 09/19/23 09/19/23 09/19/23 Range/Units 05:58 06:04 06:28 WBC (3.8-10.6) k/uL RBC (4.30-5.90) m/uL Hgb (13.0-17.5) gm/dL Hct (39.0-53.0) % MCV (80.0-100.0) fL MCHC (31.0-37.0) g/dL RDW (11.5-15.5) % Sodium 135 L (137-145) mmol/L Chloride 97 L (98-107) mmol/L BUN 31 H (9-20) mg/dL Creatinine 2.44 H (0.66-1.25) mg/dL Glucose 62 L (74-99) mg/dL POC Glucose (mg/dL) 54 L 62 L (70-110) mg/dL
--- NOTE | 2023-09-19 10:56 | P.PN ---
Subjective Patient is seen in follow-up for acute kidney injury, currently hemodialysis dependent. Permacath placed September 16, 2023. No problems with dialysis yesterday. Denies chest pain or shortness of breath. Oral intake fair. Remains oliguric. Vital signs are stable. General: No acute distress. HEENT: Head exam is unremarkable. LUNGS: No audible rhonchi or wheezes. HEART: Rate and Rhythm are regular. ABDOMEN: Nontender. EXTREMITITES: No edema. Objective - Vital Signs Vital signs: Vital Signs Temp 97.7 F 09/19/23 08:00 Pulse 76 09/19/23 09:00 Resp 16 09/19/23 09:00 BP 98/54 09/19/23 09:00 Pulse Ox 97 09/19/23 08:00 FiO2 40 09/02/23 20:33 Intake & Output 09/18/23 09/19/23 09/19/23 18:59 06:59 18:59 Intake Total 1266 360 Output Total 2050 59 Balance -784 301 Weight 87.7 kg 87.4 kg Intake: IV 50 cefTRIAXone 2 gm In 50 Sodium Chloride 0.9% 50 ml @ 100 mls/hr IVPB Q24HR [facility] Rx#:[id number] Oral 716 360 Hemodialysis 500 Output: Urine 50 59 Hemodialysis 2000 Other: Voiding Method Indwelling Catheter Indwelling Catheter Indwelling Catheter ABP, PAP, CO, CI - Last Documented Arterial Blood Pressure 83/58 Pulmonary Artery Pressure 45/17 Cardiac Output 3.5 Cardiac Index 2 - Labs CBC & Chem 7: 09/19/23 05:58 09/19/23 05:58 Labs: Abnormal Lab Results - Last 24 Hours (Table) 09/18/23 09/18/23 09/19/23 Range/Units 16:22 20:25 05:58 WBC 13.1 H (3.8-10.6) k/uL RBC 3.08 L (4.30-5.90) m/uL Hgb 9.4 L (13.0-17.5) gm/dL Hct 31.4 L (39.0-53.0) % MCV 102.2 H (80.0-100.0) fL MCHC 29.9 L (31.0-37.0) g/dL RDW 16.2 H (11.5-15.5) % Sodium (137-145) mmol/L Chloride (98-107) mmol/L BUN (9-20) mg/dL Creatinine (0.66-1.25) mg/dL Glucose (74-99) mg/dL POC Glucose (mg/dL) 120 H 155 H (70-110) mg/dL 09/19/23 09/19/23 09/19/23 Range/Units 05:58 06:04 06:28 WBC (3.8-10.6) k/uL RBC (4.30-5.90) m/uL Hgb (13.0-17.5) gm/dL Hct (39.0-53.0) % MCV (80.0-100.0) fL MCHC (31.0-37.0) g/dL RDW (11.5-15.5) % Sodium 135 L (137-145) mmol/L Chloride 97 L (98-107) mmol/L BUN 31 H (9-20) mg/dL Creatinine 2.44 H (0.66-1.25) mg/dL Glucose 62 L (74-99) mg/dL POC Glucose (mg/dL) 54 L 62 L (70-110) mg/dL Assessment and Plan Plan: Assessment: 1. Acute kidney injury secondary to ATN secondary to hypotension/cardiogenic shock. Baseline creatinine near 1. Started on hemodialysis September 09, 2023. Permacath placed September 16, 2023. Oliguric. 2. Coronary artery disease status post CABG x 3 September 02, 2023. 3. Shock now off vasopressors. 4. Cardiomyopathy with reduced ejection fraction. 5. Metabolic acidosis secondary to acute kidney injury. Improved postdialysis. Also on oral bicarb. 6. Urinary retention. Status post bladder irrigation and Hobson catheter placement. Urology following. 7. Bleeding from the access site. Status post IV DDAVP and stitch placement. Now resolved. 8. Hyponatremia secondary to acute kidney injury. Hypervolemic. Plan: Hemodialysis tomorrow. Encouraged oral intake. Monitor for renal recovery outpatient. Phosphorus level 3.9 dated September 18, 2023.
[2023-09-19 11:16] LABS: Glucose,Whole Blood 112 mg/dL (70-110)
--- NOTE | 2023-09-19 12:58 | P.PN ---
Subjective Progress Note Date: 09/19/23 63-year-old male patient, was brought into the intensive care unit after having an antibiotic balloon pump inserted this morning and this was done in preparation for coronary artery bypass surgery. The patient is known to have CAD, chronic CHF with impaired ejection fraction of 30 to 35%. The patient has been hospitalized with [facility] and an earlier cardiac catheterization from April 2023 showed a 70% left main, 70% proximal LAD, 30% circumflex and 70% obtuse marginal 1 and 60% mid RCA. The patient has impaired LV function with an EF around 30 to 35% along with mild to moderate MR, and severe pulm hypertension. The patient is scheduled to undergo coronary artery bypass surgery tomorrow. He is currently on room air oxygen. Free of any chest pain. Hemodynamically stable. Augmented blood pressure is around 80. He has some developmental delay and his other comorbid conditions include diabetes mellitus type 2, hypertension and hyperlipidemia. Blood work shows a white cell count of 9, hemoglobin 11.8, platelet count of 206, normal coagulation profile, BUN of 27 with a creatinine of 1 and sodium levels at 138. LFTs are normal. His CAT scan of the chest that was done on 07/16/2023 showed cardiomegaly with small right and left-sided pleural effusion. This is consistent with CHF. No mediastinal lymphadenopathy. The patient is seen today September 02, 2023 in follow-up in the intensive care unit following surgery. He had undergone an on pump coronary artery bypass grafting x 3 with a left internal thoracic artery sequential to diagonal and the LAD. Right SVG from the aorta to the obtuse marginal #1. Left atrial appendage ligation and clipping. He remains intubated on the mechanical ventilator and assist-control mode at a rate of 14, tidal volume 500, FiO2 40% and a PEEP of 10. He remains on propofol at 20 mcg/kg/min. Lactated Ringer's at 50 MLS per hour. He is requiring vasopressin at 0.04 units/min. Insulin drip at 1 unit/h. Norepinephrine at 0.05 mcg/kg/min. Milrinone at 0.25 mcg/kg/min intra-aortic balloon pump remains in place. Mediastinal and right and left split chest tubes remain in place. Cardiac output is 4.7. Cardiac index 2.6. Received albumin. Receiving cefazolin. Heparin for DVT prophylaxis. White count 11.7. Hemoglo bin 11.5. Platelets 84,000. INR 1.4. Sodium 141. Potassium 3.7. Bicarb 22. BUN 22. Creatinine 0.88. Glucose 101. X-ray no overt failure, pneumothorax or sizable consolidation. ABG's are pending. Patient was today on 09/03/2023, patient was extubated last night uneventfully, patient is now on 2 L nasal cannula, his intra-aortic balloon has been removed today patient remains on pressors and on inotropes. Still requiring norepinephrine at 0.02 mcg/kg/min still on milrinone 0.25 mcg/kg/min and on 0.04 units/min of vasopressin. Cardiac output today is 6.5 cardiac index is 3.7 PA pressure 41/17 CVP of 15. Continues to have mediastinal left and right-sided pleural chest tubes in place, had about 780 mL output since surgery. Chest x- ray is showing mostly postoperative changes labs were all reviewed. WBC count is 15.2 hemoglobin 9.2. Basic metabolic profile is normal, creatinine 1.10 up from 0.88 yesterday Reevaluated today on 09/04/2023, patient remains in the ICU on 3 L nasal cannula, insulin drip at 1.5 units/h still receiving norepinephrine at 0.08 mcg/kg/min milrinone 0.1 mcg/kg/min vasopressin at 0.03 units/min. Cardiac output is 5.0 cardiac index 2.8, patient remains marginal at best, he is sitting at the bedside chair, does not seem to be in distress, on 3 L nasal cannula. Chest x- ray showed no evidence of pulmonary edema no evidence of pneumonia he does have a small tiny apical left pneumothorax. WBC count is 17.7 hemoglobin 9.4. Basic metabolic profile is normal however his BUN is 34 creatinine is 1.52, apparently the patient does have sustained some acute kidney injury most likely related to hypotension/acute tubular necrosis. Patient was reevaluated today on 09/05/2023, remains in the ICU, still requiring multiple drips, he is on dopamine at 2.5 mcg/kg/min norepinephrine at 0.03 mcg/kg/min vasopressin 0.03 units/min patient is also on insulin at 1.5 units/h. Cardiac index remains low at 1.9 cardiac output is relatively low at 3.4. Pulmonary artery pressure 44/18, CVP is 12. Patient does not seem to be very much motivated, he is achieving less than 500 cc on incentive spirometry. The last patient is on 2 L nasal cannula, refusing to participate in physical activity, refusing incentive spirometry, chest tubes, remain in place, prognosis remains guarded. Chest x-ray showed mostly bibasilar atelectasis, mild interstitial prominence, I doubt left-sided pneumothorax as documented by radiology Reevaluate today on 09/06/2023, patient is basically about the same. Patient is in the ICU, he is on multiple drips including higher dose of inotrope, milrinone 0.25 he is on norepinephrine at 0.02 mcg/kg/min vasopressin at 0.03 units/min do pamine at 2.5 mcg/kg/min dobutamine at 2.5 mcg/kg/min insulin at 2.5 units an hour, urine output is low, patient received albumin cardiac index is 2.9 today cardiac output is 5.9. His renal functioning is getting a bit worse, patient apparently the patient is developing what seems to be a cardiorenal syndrome. Chest x-ray is showing atelectasis and bibasilar pleural effusions. Patient is not motivated, does not seem to be interested in getting motivated. And been doing poorly with incentive spirometry Reevaluate today on 09/06, patient is basically about the same, he is now postoperative day #5, sitting at the bedside chair, patient is not motivated what bit remains on multiple inotropes and pressors, patient is receiving dopamine at 2.5 mcg/kg/min dobutamine at 5 mcg/kg/min norepinephrine at 0.06 mcg/kg/min vasopressin at 0.03 units/min and he is also on insulin at 3.5 units/ h today he is off milrinone. Cardiac output is 3.8 cardiac index is 2.1 PA pressure 43/15 CVP is 13. Chest x-ray showed mostly atelectasis at the bases. No clear-cut evidence of pulmonary edema. Patient is maintained on 2 L nasal cannula, again the patient is doing extremely poorly with incentive spirometry and does not seem to be motivated at all. Renal functioning seems to be getting worse, his BUN is 63 creatinine 3.54, at this rate I am quite concerned with the patient may end up requiring hemodialysis. This is being addressed by nephrology on the case. Liver enzymes are improving Today on 09/08/2023, patient is now postoperative day #6. Patient is still requiring dobutamine at 0.5 mcg/kg/min, still requiring vasopressin at 0.02 units/min, his norepinephrine is presently on hold, and milrinone was discontinued. Still on insulin at 3 units/h. Surprisingly the patient is not developing congestive heart failure, but he is developing worsening renal failure, and he may end up requiring renal replacement therapy. His PA pressure 40/18, his cardiac output is 3.9 cardiac index is 2.2 chest x-ray is showing bibasilar atelectasis and small left pleural effusion with a small right pleural effusion Hancock-Isabell remains in place WBC count is 6 hemoglobin 8.7 basic metabolic profile is normal except for bicarb of 15 and again worsening renal profile BUN is up to 71 creatinine 4.40 Progress note dated September 09, 2023. This is a 63-year-old male, who was seen today in room 266. The patient is status post three-vessel bypass grafting. He went to the operating room on September 01. He is currently on room air. He is receiving insulin at 2 units an hour. In addition, the patient is getting lactated Ringer's at 30 cc an hour, and dobutamine at 2.5 mcg/kg/min. The patient will have hemodialysis for the first time today. Current labs include a white count 6.8, hemoglobin 8.1, hematocrit 24.9, and a platelet count of 105,000. Sodium 135, potassium 4.6, chlorides 107, CO2 12, anion gap 16, BUN 79, creatinine 5.27. Glucose is 141. Calcium 7.6. AST is 300. ALT is 155. Albumin is 2.8. Chest x-ray shows cardiomegaly, with bilateral pleural effusions. Progress note dated September 10, 2023. This is a 63-year-old male who is seen in room 266. Currently, the patient is on room air. The patient is getting insulin drip at 3 units an hour, and continues on dobutamine for cardiovascular support at 5 mcg/kg/min. The patient is still not very motivated, to improve his overall clinical situation. He does poorly on his incentive spirometer. Current laboratory data includes a white count 8.7, hemoglobin 10 hematocrit 30.4, platelet count 119,000. Sodium 135, potassium 4.5, chlorides 104, CO2 14, anion gap 17, BUN 63, and creatinine 4.33. The most recent glucose was 127. AST is 200, ALT 141. Albumin 2.8. Calcium 7.6. The patient's chest x-ray shows some postoperative changes, but has been relatively stable. Progress note dated September 11, 2023. The patient is seen today in room 266. He is currently undergoing hemodialysis. The goal of hemodialysis today is removal of 1 L of fluid. Patient is on room air. The patient is getting saline at 20 cc an hour. The patient continues on dobutamine, for cardiovascular support at 2.5 mcg/kg/min. Current labs include a white count 11.9, hemoglobin 9.5, hematocrit 29.6, and a platelet count of 128,000. Sodium 132, potassium 4.3, chlorides 101, CO2 12, anion gap 19, BUN 53, creatinine 3.70. AST is 102. ALT is 100. Albumin is 2.8. Today's chest x-ray is very stable, and comparable to the x-ray done yesterday. Progress note dated September 12, 2023. The patient is again seen in room 266. Currently, the patient is doing about the same. The patient is on room air. He is getting saline at 20 cc an hour. He will have a permanent hemodialysis catheter placed today. Labs today include a white count 18, hemoglobin 9.8, hematocrit 30.3, and a platelet count of 142,000. Sodium 131, potassium 3.8, chlorides 99, CO2 20, BUN 46, creatinine 2.99. Glucose of 66. Albumin 2.8. The rest of the labs are reviewed. Chest x-ray shows postoperative changes, and persistent right pleural effusion with basilar atelectasis. Progress note dated September 13, 2023. The patient is seen today in room 266. Currently, the patient is on room air. He is getting saline at 20 cc an hour. The patient did have hemodialysis yesterday, and 2 L was removed. This was on September 11. The patient was to have a permanent hemodialysis catheter placed, but he apparently refused it. Current labs include a white count 23.8, hemoglobin 10, hematocrit 31.1, and platelet count 80,000. Sodium 129, potassium 3.9, chlorides 95, CO2 22, BUN 39, creatinine 3.0. Glucose was 126. Calcium 7.8. Total bilirubin 2.3. Albumin is 2.9. No chest x-ray today. Progress note dated September 14, 2023. The patient is again seen today in room 266. Currently he is on room air. The patient is not receiving any IV fluids. He did have hemodialysis yesterday. 1 L was removed, on September 12. He has no specific complaints today. Still doing very poorly on his incentive spirometer. Current labs include a white count 27.2, hemoglobin 9.7, hematocrit 31, and platelet count 69,000. Sodium 129, potassium 4.1, chloride 95, CO2 21, BUN 40, creatinine 2.83. Glucose is 207. Calcium 7.7. Phosphorus 4.7. Magnesium 1.9. Albumin 2.9. Chest x-ray shows some mild fluid overload. The chest x-ray is essentially unchanged. Progress note dated September 15, 2023. The patient is seen today in room 266. Currently he is on room air. He is not requiring any IV fluids. The patient did have hemodialysis yesterday, and 2 L was removed. The patient will have a permanent hemodialysis catheter placed tomorrow. Current labs include a white count 21.9, hemoglobin 10, hematocrit 32.7, and a platelet count of 73,000. Sodium 130, potassium 3.7, chlorides 97, CO2 25, BUN 37, and creatinine 2.58. Albumin is 2.7. Glucose is 128. Urine culture shows evidence of gram-negative bacilli. He was placed on Rocephin yesterday. Chest ultrasound shows a small 4.5 cm pocket on the right. Chest x- ray shows postsurgical changes, and a small right-sided pleural effusion. On today's evaluation on 09/16/2023, the patient is resting comfortably on a c hair. The patient is calm and comfortable. No significant events overnight. The patient is having a low urine output and the patient is going to undergo a permacath insertion today. The patient is calm and comfortable without any signs of respiratory distress. He is using incentive spirometer and pulling approximately 500. He remains in normal sinus rhythm. The chest x-ray is showing postsurgical changes with small bilateral pleural effusions. Hobson catheter still in place. Urine culture is showing E. coli and the patient remains on IV Rocephin. The patient's white cell count is at 15.5 with a hemoglobin of 9.7 and a platelet count of 109. Sodium is at 132, potassium is 3.6, BUN is 48 with a creatinine of 3.34 which is slightly higher compared to yesterday. The patient remains on aspirin, patient is also on metoprolol 12.5 mg p.o. twice a day. He is on Levemir insulin 50 units along with sliding scale insulin coverage. He is on oral bicarb supplements. The patient is currently postop day #15 following a three-vessel bypass surgery. The patient sustained an acute kidney injury postop requiring dialysis. He did not also encountered cardiogenic shock which essentially recovered. On today's evaluation of 09/17/2023, the patient is being seen for a follow-up. The patient is following coronary artery bypass surgery and the patient is postop day #16 following a three-vessel bypass surgery. He sustained acute kidney injury postop requiring hemodialysis. A permacath was inserted yesterday. The patient is doing well on room air oxygen. Denies having any significant respiratory distress. The patient's chest x-ray is showing some CHF which is stable in appearance with increased interstitial pattern bilaterally. The patient was started on hemodialysis via permacath yesterday. The permacath was inserted and the patient was given a hemodialysis session of 1.8 L. Another session of hemodialysis to be done today. Meanwhile, the white cell count is at 17 and this remains elevated as the patient suspected to have urine tract infection with E. coli the patient remains on IV Rocephin. Hemoglobin of 8.8 and a platelet count of his 123. Creatinine is down to 2.37 with a BUN of 35 and a sodium level of 132. No other significant events overnight. The patient is on Levemir insulin 15 units and sliding scale insulin coverage. The patient on metoprolol 12.5 mg p.o. twice a day in addition to aspirin and Plavix. He is on midodrine for hypotension. On today's evaluation of 09/18/2023, the patient is awake and alert on room air oxygen. The patient is undergoing hemodialysis. Denies having any specific complaints. No respiratory difficulties. The chest x-ray was done today and the patient was not found to have any significant abnormalities other than some cardiomegaly and the hemodialysis catheter in the right lung. There is some increased interstitial vascular markings and small bilateral pleural effusions. No evidence of any pneumothorax. Hemoglobin is at 8.9 with a white cell count of 12.8 and a platelet count of 148. BUN is at 45 with a creatinine of 3.2 and a sodium levels at 132. No other significant events otherwise for now. Cardiac rhythm remained sinus. Blood sugar management is also adequate. The patient remains on aspirin and Plavix. The patient on midodrine for blood pressure control.The patient remains on the same dose of metoprolol 12.5 mg twice a day. Patient is also on oral bicarb. On today's evaluation of 09/19/2023, the patient is calm and comfortable. Denies having any specific complaints. The patient is on room air oxygen. No respiratory distress. Permacath was inserted on 09/16/2023. He underwent hemodialysis yesterday. Denies having any shortness of breath. Remains oliguric. Cardiac rhythm is sinus. WBC count of 13 with a hemoglobin 9.4 and a platelet count of 199, BUN is 31 with a creatinine of 2.4 and sodium levels of 135. The patient remains on IV Rocephin. The patient is afebrile and hemodynamically stable. Remains on midodrine 5 mg p.o. 3 times daily. Remains on Levemir insulin 15 units daily along with a slight scale coverage. Remains on aspirin and Plavix. Remains on metoprolol 12.5 mg p.o. twice a day. Working with physical therapy in regards to his mobility. Objective - Vital Signs Vital signs: Vital Signs Temp 97.7 F 09/19/23 08:00 Pulse 76 09/19/23 09:00 Resp 16 09/19/23 09:00 BP 98/54 09/19/23 09:00 Pulse Ox 97 09/19/23 08:00 FiO2 40 09/02/23 20:33 Intake & Output 09/18/23 09/19/23 09/19/23 18:59 06:59 18:59 Intake Total 1266 360 Output Total 2050 59 Balance -784 301 Weight 87.7 kg 87.4 kg Intake: IV 50 cefTRIAXone 2 gm In 50 Sodium Chloride 0.9% 50 ml @ 100 mls/hr IVPB Q24HR ZAID Rx#:[id number] Oral 716 360 Hemodialysis 500 Output: Urine 50 59 Hemodialysis 1999 Other: Voiding Method Indwelling Catheter Indwelling Catheter Indwelling Catheter ABP, PAP, CO, CI - Last Documented Arterial Blood Pressure 83/58 Pulmonary Artery Pressure 45/17 Cardiac Output 3.5 Cardiac Index 2 - Exam CONSTITUTIONAL: Sitting up to the bedside chair in the intensive care unit, appears comfortable, cooperative, no apparent acute distress. The patient remains on room air oxygen. HEENT: Neck is supple, no JVD, no lymphadenopathy. RESPIRATORY: Lungs sounds essentially clear throughout, diminished to his rush ateral bases. Respirations are symmetrical and nonlabored. Currently on room air with oxygen saturations 98%. Able to achieve 500 mL on his incentive spirometry with encouragement and instruction. Weak cough. CARDIOVASCULAR: Regular rhythm and rate. S1 and S2 present, negative for S3, gallop or murmur.Sternum is stable. Palpable peripheral pulses bilaterally, +1 edema generalized. No calf pain or tenderness noted. Heart hugger in place with patient demonstrating appropriate use with much encouragement. Knee-high VARUN hose and sequential compression devices in place to his bilateral lower extremities. GASTROINTESTINAL: Abdomen soft, nontender, nondistended. Active bowel sounds present 4 quadrants. Tolerating diet. Passing flatus. No guarding or rigidity. INTEGUMENTARY: Skin is warm and dry with no evidence of clubbing or cyanosis. Midline sternal incision clean dry and well approximated, covered with dry intact dressing. Bilateral lower extremity EVH sites well approximated without redness or drainage. Erythema to his coccyx, dressing clean, dry and intact. NEUROLOGIC: Cranial nerves II through XII intact. MUSKULOSKELETAL: Able to move all extremities, strength equal bilaterally, generalized weakness. PSYCHIATRIC: Alert and oriented to person place and disoriented to time, appropriate affect. - Labs CBC & Chem 7: 09/19/23 05:58 09/19/23 05:58 Labs: Abnormal Lab Results - Last 24 Hours (Table) 09/18/23 09/18/23 09/19/23 Range/Units 16:22 20:25 05:58 WBC 13.1 H (3.8-10.6) k/uL RBC 3.08 L (4.30-5.90) m/uL Hgb 9.4 L (13.0-17.5) gm/dL Hct 31.4 L (39.0-53.0) % MCV 102.2 H (80.0-100.0) fL MCHC 29.9 L (31.0-37.0) g/dL RDW 16.2 H (11.5-15.5) % Sodium (137-145) mmol/L Chloride (98-107) mmol/L BUN (9-20) mg/dL Creatinine (0.66-1.25) mg/dL Glucose (74-99) mg/dL POC Glucose (mg/dL) 120 H 155 H (70-110) mg/dL 09/19/23 09/19/23 09/19/23 Range/Units 05:58 06:04 06:28 WBC (3.8-10.6) k/uL RBC (4.30-5.90) m/uL Hgb (13.0-17.5) gm/dL Hct (39.0-53.0) % MCV (80.0-100.0) fL MCHC (31.0-37.0) g/dL RDW (11.5-15.5) % Sodium 135 L (137-145) mmol/L Chloride 97 L (98-107) mmol/L BUN 31 H (9-20) mg/dL Creatinine 2.44 H (0.66-1.25) mg/dL Glucose 62 L (74-99) mg/dL POC Glucose (mg/dL) 54 L 62 L (70-110) mg/dL Assessment and Plan Plan: Multivessel coronary artery disease and the patient is S/P three-vessel bypass grafting. Patient is postop day # 16 Postthoracotomy and the surgical wound is clean and the patient's chest rhythm removed. Small bilateral pleural effusions on follow-up chest x-ray. The patient is undergoing hemodialysis. Chronic systolic CHF, with an ejection fraction of 30 to 35%. The patient is currently on aspirin, Plavix, and the patient is also on metoprolol 12.5 mg p.o. twice a day. Cardiogenic shock and severe LV dysfunction, recovered Acute kidney injury, requiring hemodialysis and the patient is status post perma cath catheter insertion last dialysis the patient undergoing periodic hemodialysis. Last hemodialysis session was done yesterday. None for today. The patient remains oliguric. E. coli/gram-negative bacillary urinary tract infection. Patient has a Hobson catheter in place and the patient is on IV Rocephin, white cell count is improved Leukocytosis, improving Peripheral vascular disease. Type 2 diabetes mellitus. Essential hypertension. Hyperlipidemia. History of developmental delay. Bipolar disorder. Chronic anxiety. Prior history of tobacco use. Plan: The patient will continue aggressive pulmonary toileting and using the incentive spirometer on daily basis. Continue metoprolol 12.5 mg twice a day Continue aspirin and Plavix Hemodialysis was done yesterday and the patient remains oliguric Avoid nephrotoxic agents Hobson catheter will be kept in place pending urology consultation Continue IV Rocephin regarding E. coli urinary tract infection Hemodialysis per nephrology Continue midodrine 5 mg p.o. 3 times daily Oral bicarb supplements Statins are on hold based on some disturbances in his liver function test Will continue to follow
--- NOTE | 2023-09-19 15:59 | P.PN ---
Subjective Progress Note Date: 09/19/23 Principal diagnosis: Triple-vessel coronary artery disease with left main disease. Past medical history significant for hypertension, hyperlipidemia, diabetes mellitus, chronic systolic heart failure with reduced ejection fraction/ischemic cardiomyopathy, bipolar disorder, obesity, peripheral vascular disease, developmental delay, previous tobacco dependence, noncompliance POD #18 right heart catheterization, ultrasound guided access, placement of intra-aortic balloon pump from right femoral access performed by Dr. Monreal. POD #17 on pump coronary artery bypass grafting x 3, left internal thoracic artery (in-situ) sequential to diagonal and left anterior descending coronary artery, right greater saphenous vein from aorta to obtuse marginal artery #1, left atrial appendage ligation with #35mm AtriClip, endoscopic bilateral greater saphenous vein harvest, graft flow measurements using the [employer] flow meter system, trans-esophageal echo Postoperative acute blood loss anemia and thrombocytopenia, expected given hemodilution and cardiopulmonary bypass LEONARDO, status post placement of temp dialysis cath. POD #3 Insertion of Perma-Cath via Right Subclavian Vein. Elevated transaminases, likely due to hypoperfusion, resolved Cardiogenic shock, resolved The patient was seen and examined at his bedside today September 19, 2023 in the intensive care unit. He is currently sitting up to the bedside chair, is awake, alert, oriented x 3 and is in no acute apparent distress. Denies any complaints of pain or shortness of breath at this time, oxygen saturations are 98% on room air and he is achieving 500 mL on his incentive spirometry with encouragement. Bedside telemetry is showing normal sinus rhythm heart rate 78 bpm. Dressing remains clean, dry and intact to his midline sternal incision. The patient reports that he feels like he is getting stronger each day. Hobson catheter remains in place for urine retention. His urine culture from September 14, 2023 showed positive for Eschericha coli and he remains on Rocephin for antibiotic coverage. Patient remains hemodynamically stable and is currently on no inotropic or pressor support. Right chest permacath remains in place with dressing, dry and intact. Hemodialysis regimen is currently Wednesdays and Fridays. Chest x-ray and laboratory results reviewed. Objective - Vital Signs Vital signs: Vital Signs Temp 97.9 F 09/19/23 12:00 Pulse 73 09/19/23 15:00 Resp 15 09/19/23 15:00 BP 105/55 09/19/23 15:00 Pulse Ox 97 09/19/23 12:00 FiO2 40 09/02/23 20:33 Intake & Output 09/18/23 09/19/23 09/19/23 18:59 06:59 18:59 Intake Total 1266 360 300 Output Total 0 59 15 Balance -784 301 285 Weight 87.7 kg 87.4 kg Intake: IV 50 50 cefTRIAXone 2 gm In 50 50 Sodium Chloride 0.9% 50 ml @ 100 mls/hr IVPB Q24HR [facility] Rx#:[id number] Oral 716 360 250 Hemodialysis 500 Output: Urine 50 59 15 Hemodialysis 1999 Other: Voiding Method Indwelling Catheter Indwelling Catheter Indwelling Catheter ABP, PAP, CO, CI - Last Documented Arterial Blood Pressure 83/58 Pulmonary Artery Pressure 45/17 Cardiac Output 3.5 Cardiac Index 2 - Exam CONSTITUTIONAL: Sitting up to the bedside chair in the intensive care unit, appears comfortable, cooperative, no apparent acute distress. HEENT: Neck is supple, no JVD, no lymphadenopathy. RESPIRATORY: Lungs sounds essentially clear throughout, diminished to his bilateral bases. Respirations are symmetrical and nonlabored. Currently on room air with oxygen saturations 98%. Able to achieve 500 mL on his incentive spir ometry with encouragement and instruction. Weak cough. CARDIOVASCULAR: Regular rhythm and rate. S1 and S2 present, negative for S3, gallop or murmur. Bedside telemetry showing normal sinus rhythm heart rate 78 bpm. Sternum is stable. Palpable peripheral pulses bilaterally, +1 edema generalized. No calf pain or tenderness noted. Heart hugger in place with patient demonstrating appropriate use with much encouragement. Knee-high VARUN hose and sequential compression devices in place to his bilateral lower extremities. GASTROINTESTINAL: Abdomen soft, nontender, nondistended. Active bowel sounds present 4 quadrants. Tolerating diet. Passing flatus. No guarding or rigidity. Bowel movement yesterday 09/17/2023. GENITOURINARY: Hemodialysis September 16, 2023 with 1887 mL of ultrafiltration completed. Hobson catheter in place for urine retention, urine output in the last 8 hours is 85 mL. INTEGUMENTARY: Skin is warm and dry with no evidence of clubbing or cyanosis. Midline sternal incision clean dry and well approximated, covered with dry intact dressing. Bilateral lower extremity EVH sites well approximated without redness or drainage. Erythema to his coccyx, dressing clean, dry and intact. NEUROLOGIC: Cranial nerves II through XII intact. MUSKULOSKELETAL: Able to move all extremities, strength equal bilaterally, generalized weakness. PSYCHIATRIC: Alert and oriented to person place and disoriented to time, appropriate affect. - Allied health notes Allied health notes reviewed: nursing - Labs CBC & Chem 7: 09/19/23 05:58 09/19/23 05:58 Labs: Abnormal Lab Results - Last 24 Hours (Table) 09/18/23 09/18/23 09/19/23 Range/Units 16:22 20:25 05:58 WBC 13.1 H (3.8-10.6) k/uL RBC 3.08 L (4.30-5.90) m/uL Hgb 9.4 L (13.0-17.5) gm/dL Hct 31.4 L (39.0-53.0) % MCV 102.2 H (80.0-100.0) fL MCHC 29.9 L (31.0-37.0) g/dL RDW 16.2 H (11.5-15.5) % Sodium (137-145) mmol/L Chloride (98-107) mmol/L BUN (9-20) mg/dL Creatinine (0.66-1.25) mg/dL Glucose (74-99) mg/dL POC Glucose (mg/dL) 120 H 155 H (70-110) mg/dL 09/19/23 09/19/23 09/19/23 Range/Units 05:58 06:04 06:28 WBC (3.8-10.6) k/uL RBC (4.30-5.90) m/uL Hgb (13.0-17.5) gm/dL Hct (39.0-53.0) % MCV (80.0-100.0) fL MCHC (31.0-37.0) g/dL RDW (11.5-15.5) % Sodium 135 L (137-145) mmol/L Chloride 97 L (98-107) mmol/L BUN 31 H (9-20) mg/dL Creatinine 2.44 H (0.66-1.25) mg/dL Glucose 62 L (74-99) mg/dL POC Glucose (mg/dL) 54 L 62 L (70-110) mg/dL 09/19/23 Range/Units 11:15 WBC (3.8-10.6) k/uL RBC (4.30-5.90) m/uL Hgb (13.0-17.5) gm/dL Hct (39.0-53.0) % MCV (80.0-100.0) fL MCHC (31.0-37.0) g/dL RDW (11.5-15.5) % Sodium (137-145) mmol/L Chloride (98-107) mmol/L BUN (9-20) mg/dL Creatinine (0.66-1.25) mg/dL Glucose (74-99) mg/dL POC Glucose (mg/dL) 112 H (70-110) mg/dL - Imaging and Cardiology Chest x-ray: report reviewed, image reviewed Assessment and Plan Assessment: Multivessel coronary artery disease with left main disease, status post three-vessel on pump coronary artery bypass grafting surgery Chronic systolic congestive heart failure with an ejection fraction of 30 to 35%, status post preoperative intra-aortic balloon pump placement Cardiomyopathy Hypertension, currently on midodrine for blood pressure support Hyperlipidemia Diabetes mellitus type 2, with hemoglobin A1c 10.9 in April 2023, preoperative hemoglobin A1c 7.4% on September 01, 2023 Peripheral arterial disease, recent ABIs to right 0.95 and left 0.97 Bilateral pleural effusions on July 16, 2023 CT scan of the chest Obesity with a BMI of 32.7 kg/m Bipolar disorder Developmentally delayed Anxiety History of noncompliance with medical therapy Remote history of nicotine dependence quit smoking over 20 years ago, with an FEV1 of 55% of predicted value and a base volume of 1.43 Postoperative acute blood loss anemia and thrombocytopenia, expected Incidental finding of tiny left pneumothorax, not a complication, resolved Acute kidney injury, status post dialysis cath placement, status post insertion of permacath Elevated transaminase and cardiogenic shock, likely from hypoperfusion, resolved Leukocytosis, positive urine culture for Escherichia coli Medical debility Plan: Continue aspirin, Plavix, and statin. Continue metoprolol tartrate 12.5 mg p.o. twice daily with hold parameters. Continue midodrine 5 mg p.o. 3 times daily per cardiology management. Encourage use of incentive spirometry 10 times every hour while awake. Bronchodilators per pulmonology. Increase activity, ambulate as tolerated. PT/OT/cardiac rehab following. Will monitor daily labs and chest x-rays. Hemodialysis recommendations per nephrology. Avoid nephrotoxic agents. Pain control per current medication regimen. Avoid to Toradol. No narcotics. Continue Hobson catheter for another 24 hours, continue to record strict accurate intake and output. Urine culture positive for Escherichia coli, continue Rocephin for IV antibiotic coverage. Insulin management per internal medicine. Preoperative hemoglobin A1c 7.4%. GI/DVT prophylaxis. Daily weights. Encourage oral intake, supplements ordered. Prognosis remains very guarded. Patient will likely need to be discharged to LTAC due to high level of care, needs extensive rehab, dialysis, daily physician monitoring with daily change in medications and plan based on daily labs. Social work to obtain insurance authorization when patient is ready to be discharged. Insurance is requiring a peer to peer which will be completed tomorrow September 20, 2023. More recommendations to follow based on patient's clinical course. Time with Patient: Greater than 30
[2023-09-19 16:48] LABS: Glucose,Whole Blood 165 mg/dL (70-110)
[2023-09-19 19:53] LABS: Glucose,Whole Blood 163 mg/dL (70-110)
[2023-09-19] MEDS: INSULIN DETEMIR (LEVEMIR) 100 UNIT/ML SYR SQ SCH (20:01)
[2023-09-20 05:15] LABS: Anisocytosis Slight; HCT 27.8 % (39.0-53.0); HGB 8.7 gm/dL (13.0-17.5); Hypochromasia Moderate; MCH 31.4 pg (25.0-35.0); MCHC 31.3 g/dL (31.0-37.0); MCV 100.2 fL (80.0-100.0); Macrocytosis Slight; Mean Platelet Volume 8.3; Platelet Count 187 k/uL (150-450); RBC 2.77 m/uL (4.30-5.90); RDW 16.3 % (11.5-15.5); WBC 9.1 k/uL (3.8-10.6)
[2023-09-20 05:24] LABS: African American GFR (CKD) 26 (>60 ml/min/1.73 sqM); Anion Gap 8 mmol/L; Blood Urea Nitrogen 39 mg/dL (9-20); Calcium 8.2 mg/dL (8.4-10.2); Carbon Dioxide 26 mmol/L (22-30); Chloride 98 mmol/L (98-107); Glucose 86 mg/dL (74-99); Magnesium 1.9 mg/dL (1.6-2.3); Non-African American GFR(CKD) 23 (>60 ml/min/1.73 sqM); Phosphorus 3.9 mg/dL (2.5-4.5); Potassium 4.1 mmol/L (3.5-5.1); Sodium 132 mmol/L (137-145)
--- NOTE | 2023-09-20 06:19 | P.PN ---
Subjective Progress Note Date: 09/08/23 63-year-old gentleman with past medical history significant for coronary artery disease, chronic congestive heart failure with ejection fraction of 30%, hypertension hyperlipidemia diabetes mellitus obesity bipolar disorder cardiomyopathy developmental delay history of nicotine dependence who has been admitted with shortness of breath and lower extremity edema. Patient underwent cardiac catheterization right heart catheterization and intra-aortic balloon pump. * Patient has comorbidities including diabetes mellitus type 2, peripheral arterial disease, bipolar disorder, history of anxiety. * Patient to undergo myocardial revascularization 09/02/2023. * 09/03/23 : Patient admitted to medical ICU. Patient was successfully extubated postprocedure. S/p intra-aortic balloon pump which remains in place through right femoral access. Patient remains on norepinephrine drip, Primacor drip, vasopressin. Bilateral chest tubes remained in place. Followed up by medical ICU and cardiac surgery. Follow-up blood work obtained including WBC 15.2 hemoglobin 9.2 platelet count of 98, serum chemistry sodium 141 potassium 4.7 carbon dioxide 24 BUN 26 creatinine 1.1 blood glucose 118-1 33 * 09/04/23: Patient seen and evaluated in medical ICU room 266, patient continues to remain on Levophed, vasopressin and pressor support. Blood work reviewed WBC 17.7 hemoglobin 9.4 platelet 117. Serum chemistry showed sodium 137 potassium 4.9 carbon dioxide 18 BUN 34 creatinine 1.52 blood glucose 123. Overnight patient was refusing to participate with care, patient counseled by cardiac surgery team as well. Brother at bedside, patient does follow co mmands, care plan discussed with nursing staff * 09/05/23: Patient seen and evaluated bedside, vitals reviewed blood pressure running in the 90s overnight. Patient remains on 2 L of oxygen. Blood work reviewed CBC shows WBC 14.3 hemoglobin 9.3 platelet 105 serum chemistry sodium 137 potassium 5.2 carbon dioxide 16 BUN 44 creatinine 1.99 total bilirubin 1.3 AST 464 ALT 128 will need to be monitored, p.atient remains lethargic however easily arousable 09/06/2023 -- Patient is seen and evaluated in ICU at bedside Vital signs reviewed and temperature of 97.9, pulse 90, respiration 14 and blood pressure of 110/40 Lab review shows WBC 14.2, hemoglobin of 8.7 and platelet count of 109, sodium 136, potassium 4.8, BUNs/creatinine of 54/2.91; concern about worsening renal fu nction likely related to cardiorenal syndrome; dopamine has been discontinued Chest x-ray reveals atelectasis and bibasilar pleural effusion --Patient remains on pressors and inotropic agents; cardiac index and cardiac output is being monitored closely -Patient remains on Plavix, aspirin, statins and beta-blockers -- Recommended to increase activity 09/07/2023 ---patient is basically about the same, he is now postoperative day #5, sitting at the bedside chair, patient is not motivated what bit remains on multiple inotropes and pressors, patient is receiving dopamine at 2.5 mcg/kg/min dobutamine at 5 mcg/kg/min norepinephrine at 0.06 mcg/kg/min vasopressin at 0.03 units/min and he is also on insulin at 3.5 units/h today he is off milrinone. Chest x-ray showed mostly atelectasis at the bases. No clear-cut evidence of pulmonary edema. Patient is maintained on 2 L nasal cannula, again the patient is doing extremely poorly with incentive spirometry and does not seem to be motivated at all. Renal functioning seems to be getting worse, his BUN is 63 creatinine 3.54, at this rate I am quite concerned with the patient may end up requiring hemodialysis. This is being addressed by nephrology on the case. Liver enzymes are improving Continue pressors and inotropes continue to monitor cardiac index and cardiac output Continue dopamine, continue dobutamine, patient is off milrinone today. However he is still requiring norepinephrine and vasopressin Continue Plavix beta-blockers aspirin and statin Titrate pressors and inotropes as tolerated 09/08/2023 --patient is seen and evaluated with family at bedside; now postoperative day # 6. -- Patient is still requiring dobutamine at 0.5 mcg/kg/min, still requiring vasopressin at 0.02 units/min, his norepinephrine is presently on hold, and milrinone was discontinued. Still on insulin at 3 units/h. -- chest x-ray is showing bibasilar atelectasis and small left pleural effusion with a small right pleural effusion -- WBC count is 6 hemoglobin 8.7 basic metabolic profile is normal except for bicarb of 15 and again worsening renal profile BUN is up to 71 creatinine 4.40 -Renal function continues to worsen; nephrology on board and planning to continue with IV Lasix and oral sodium bicarbonate; plan for possible hemodialysis in a.m. if urine output does not improve 09/09/2023 Patient is awake alert but looks very tired and lethargic lying in chair. No significant chest pain. Patient has average appetite No significant dyspnea but looks very weak Patient required pressors Patient planned and considered for hemodialysis given his worsening renal function today 5.2 compared with 1.5 upon admission He has severe cardiomyopathy with ejection fraction 20 to 25% and currently on aspirin and Plavix and amiodarone drip. Also he required pressors as above, cardiology following closely. 09/10/2023 Patient still lethargic still sitting in chair No much difference clinically from yesterday A plan to undergo hemodialysis today for first-line, hemodialysis catheter in place. Patient is oliguric. He is currently getting dobutamine and insulin drip 3 units/h He is also on aspirin and Plavix and metoprolol 09/11/2023 Patient remains very lethargic No new complaint He remains on dobutamine drip at 2.5 He is getting the third round of hemodialysis today His insulin drip switched to sliding scale and Levemir Continue with dual antiplatelet therapy Labs showing stable hemoglobin 9.5. Platelet 1 28,000 09/12/2023 Patient looks more awake and alert today, he still generally weak sitting up in chair. No chest pain no dyspnea, no other specific complaint he Is getting hemodialysis. Creatinine down to 2.9. Hemoglobin stable, platelet count stable. He was started on Levemir 14 and twice daily yesterday, his sugar was on the low side this morning therefore we are going to lower the dose to Levemir 15 units at bedtime with close monitoring. Started also on sodium bicarb ] I am resuming the care of the patient on 09/16/2022 Patient looks more energetic relaxed and sitting up in bed compared to last week He denies any specific complaint Hobson catheter in place No chest pain or dyspnea He is on ceftriaxone, urine culture growing E. coli. Patient has leukocytosis about 17,000 Also his sugars controlled on Levemir 15 units increased today to 17 units Rest of labs reviewed and they are stable. Creatinine 2.3 and patient had permacath placed yesterday undergoing hemodialysis 09/18/2023 No chest pain no dyspnea No abdominal pain and tolerates diet well He still on ceftriaxone for sensitive E. coli in the urine culture Is on aspirin and Plavix and metoprolol Hemodialysis per nephrology Sugar slightly on the low side so we lowered his Levemir to 15 units daily 09/19/2023 Patient denies chest pain. Denies any other complaint He has average appetite but no abdominal pain and nausea diarrhea Hobson catheter in place. Glucose was low this morning therefore we lowered his Levemir 17 units down to 15 units Continue with dual antiplatelet therapy with aspirin and Plavix and ceftriaxone and amiodarone Objective - Vital Signs Vital signs: Vital Signs Temp 97.7 F 09/19/23 08:00 Pulse 73 09/19/23 11:00 Resp 13 09/19/23 11:00 BP 107/64 09/19/23 11:00 Pulse Ox 97 09/19/23 08:00 FiO2 40 09/02/23 20:33 Intake & Output 09/18/23 09/19/23 09/19/23 18:59 06:59 18:59 Intake Total 1266 360 300 Output Total 2049 59 15 Balance -784 301 285 Weight 87.7 kg 87.4 kg Intake: IV 50 50 cefTRIAXone 2 gm In 50 50 Sodium Chloride 0.9% 50 ml @ 100 mls/hr IVPB Q24HR [facility] Rx#:[id number] Oral 716 360 250 Hemodialysis 500 Output: Urine 50 59 15 Hemodialysis 2000 Other: Voiding Method Indwelling Catheter Indwelling Catheter Indwelling Catheter ABP, PAP, CO, CI - Last Documented Arterial Blood Pressure 83/58 Pulmonary Artery Pressure 45/17 Cardiac Output 3.5 Cardiac Index 2 - Exam -GENERAL: The patient is alert and oriented x3, not in any acute distress. Well developed, well nourished. Lethargic and weak HEENT: Pupils are round and equally reacting to light. EOMI. No scleral icterus. No conjunctival pallor. Normocephalic, atraumatic. No pharyngeal erythema. No thyromegaly. CARDIOVASCULAR: S1 and S2 present. No murmurs, rubs, or gallops. PULMONARY: Chest is clear to auscultation, no wheezing , no crackles. ABDOMEN: Soft, nontender, nondistended, normoactive bowel sounds. No palpable organomegaly. MUSCULOSKELETAL: No joint swelling or deformity. -EXTREMITIES: No cyanosis, clubbing, bilateral pitting leg edema.-follow-up with wound service at the [facility] We recommend close monitoring of this metabolic panel (BMP ) while patient is on Lasix, also monitoring of complete cell count (CBC) NEUROLOGICAL: Gross neurological examination did not reveal any focal deficits. SKIN: No rashes. no petechiae. - Labs CBC & Chem 7: 09/20/23 04:33 09/20/23 04:33 Labs: Abnormal Lab Results - Last 24 Hours (Table) 09/18/23 09/18/23 09/19/23 Range/Units 16:22 20:25 05:58 WBC 13.1 H (3.8-10.6) k/uL RBC 3.08 L (4.30-5.90) m/uL Hgb 9.4 L (13.0-17.5) gm/dL Hct 31.4 L (39.0-53.0) % MCV 102.2 H (80.0-100.0) fL MCHC 29.9 L (31.0-37.0) g/dL RDW 16.2 H (11.5-15.5) % Sodium (137-145) mmol/L Chloride (98-107) mmol/L BUN (9-20) mg/dL Creatinine (0.66-1.25) mg/dL Glucose (74-99) mg/dL POC Glucose (mg/dL) 120 H 155 H (70-110) mg/dL 09/19/23 09/19/23 09/19/23 Range/Units 05:58 06:04 06:28 WBC (3.8-10.6) k/uL RBC (4.30-5.90) m/uL Hgb (13.0-17.5) gm/dL Hct (39.0-53.0) % MCV (80.0-100.0) fL MCHC (31.0-37.0) g/dL RDW (11.5-15.5) % Sodium 135 L (137-145) mmol/L Chloride 97 L (98-107) mmol/L BUN 31 H (9-20) mg/dL Creatinine 2.44 H (0.66-1.25) mg/dL Glucose 62 L (74-99) mg/dL POC Glucose (mg/dL) 54 L 62 L (70-110) mg/dL 09/19/23 Range/Units 11:15 WBC (3.8-10.6) k/uL RBC (4.30-5.90) m/uL Hgb (13.0-17.5) gm/dL Hct (39.0-53.0) % MCV (80.0-100.0) fL MCHC (31.0-37.0) g/dL RDW (11.5-15.5) % Sodium (137-145) mmol/L Chloride (98-107) mmol/L BUN (9-20) mg/dL Creatinine (0.66-1.25) mg/dL Glucose (74-99) mg/dL POC Glucose (mg/dL) 112 H (70-110) mg/dL Assessment and Plan Assessment: Acute on chronic systolic ejection of congestive heart failure with ejection fraction worsened 35% down to 25% Cardiogenic shock Acute kidney injury requiring hemodialysis Peripheral vascular disease Hypertension Hyperlipidemia Diabetes mellitus Bipolar disorder Plan: Continue with pressors per portal developer will follow the clinical case closely Pulmonary/critical care team Continue with insulin Levemir 17 units Continue with amiodarone and aspirin and Plavix On metoprolol Continue with hemodialysis per graining operator Several consultants on the case DVT prophylaxis with subcutaneous heparin GI prophylaxis with Protonix Prognosis is guarded
[2023-09-20 06:30] LABS: Glucose,Whole Blood 73 mg/dL (70-110)
--- NOTE | 2023-09-20 08:01 | XR ---
EXAMINATION TYPE: XR chest 1V portable DATE OF EXAM: 09/20/2023 COMPARISON: 09/19/2023 HISTORY: Postcardiac surgery TECHNIQUE: Single frontal view of the chest is obtained. FINDINGS: Right-sided dialysis catheter the tip overlying the right atrium. Diffuse interstitial pat tern, bilateral consolidation and pleural effusion. Postsurgical changes. Arthropathy of the shoulder s. Osseous structures are stable. IMPRESSION: Diffuse pleural-parenchymal changes favor CHF with pulmonary edema. ARDS or diffuse pneu monia also in the differential diagnosis. No significant interval change.
--- NOTE | 2023-09-20 08:17 | P.PN ---
Subjective Progress Note Date: 09/20/23 Principal diagnosis: Triple-vessel coronary artery disease with left main disease. Past medical history significant for hypertension, hyperlipidemia, diabetes mellitus, chronic systolic heart failure with reduced ejection fraction/ischemic cardiomyopathy, bipolar disorder, obesity, peripheral vascular disease, developmental delay, previous tobacco dependence, noncompliance POD #19 right heart catheterization, ultrasound guided access, placement of intra-aortic balloon pump from right femoral access performed by Dr. Monreal. POD #18 on pump coronary artery bypass grafting x 3, left internal thoracic artery (in-situ) sequential to diagonal and left anterior descending coronary artery, right greater saphenous vein from aorta to obtuse marginal artery #1, left atrial appendage ligation with #35mm AtriClip, endoscopic bilateral greater saphenous vein harvest, graft flow measurements using the [employer] flow meter system, trans-esophageal echo Postoperative acute blood loss anemia and thrombocytopenia, expected given hemodilution and cardiopulmonary bypass LEONARDO, status post placement of temp dialysis cath. POD #4 Insertion of Perma-Cath via Right Subclavian Vein. Elevated transaminases, likely due to hypoperfusion, resolved Cardiogenic shock, resolved The patient was seen and examined in follow-up today September 20, 2023 at his bedside in the intensive care unit. He is currently sitting up to the bedside chair, is awake, alert, oriented x 3 and is in no acute apparent distress. He denies any complaints of pain or shortness of breath at this time. He did receive a shower yesterday and tolerated well. Right subclavian permacath remains in place, dressing is clean, dry and intact. Hemodialysis is pending this morning. The patient is tolerating oral intake. Reports he feels as if he is getting somewhat stronger. Oxygen saturations are 97% on room air and he is achieving 500 mL on his incentive spirometry with much encouragement. Bedside telemetry is showing normal sinus rhythm heart rate 74 bpm. Discharge planning is in place, insurance insurance authorization pending for LTAC placement. Chest x-ray and laboratory results reviewed. Hobson catheter remains in place for urine retention, he remains on Rocephin for a positive urine culture showing Eschericha Coli. He remains afebrile and WBC count today is 9.1. Objective - Vital Signs Vital signs: Vital Signs Temp 98 F 09/20/23 04:00 Pulse 78 09/20/23 07:00 Resp 19 09/20/23 07:00 BP 118/69 09/20/23 07:00 Pulse Ox 97 09/20/23 07:00 FiO2 40 09/02/23 20:33 Intake & Output 09/19/23 09/20/23 09/20/23 18:59 06:59 18:59 Intake Total 950 Output Total 45 72 Balance 905 -72 Intake: IV 50 cefTRIAXone 2 gm In 50 Sodium Chloride 0.9% 50 ml @ 100 mls/hr IVPB Q24HR [facility] Rx#:[id number] Oral 900 Output: Urine 45 72 Other: Voiding Method Indwelling Catheter Indwelling Catheter ABP, PAP, CO, CI - Last Documented Arterial Blood Pressure 83/58 Pulmonary Artery Pressure 45/17 Cardiac Output 3.5 Cardiac Index 2 - Exam CONSTITUTIONAL: Sitting up to the bedside chair in the intensive care unit, appears comfortable, cooperative, no apparent acute distress. HEENT: Neck is supple, no JVD, no lymphadenopathy. RESPIRATORY: Lungs sounds essentially clear throughout, diminished to his bilateral bases. Respirations are symmetrical and nonlabored. Currently on room air with oxygen saturations 97%. Able to achieve 500 mL on his incentive spirometry with encouragement and instruction. Weak cough. CARDIOVASCULAR: Regular rhythm and rate. S1 and S2 present, negative for S3, gallop or murmur. Bedside telemetry showing normal sinus rhythm heart rate 74 bpm. Sternum is stable. Palpable peripheral pulses bilaterally, +1 edema generalized. No calf pain or tenderness noted. Heart hugger in place with patient demonstrating appropriate use with much encouragement. Knee-high VARUN hose and sequential compression devices in place to his bilateral lower extremities. GASTROINTESTINAL: Abdomen soft, nontender, nondistended. Active bowel sounds present 4 quadrants. Tolerating diet. Passing flatus. No guarding or rigidity. Bowel movement 09/17/2023. GENITOURINARY: Hemodialysis September 18, 2023 with 2000 mL of ultrafiltration completed. Hobson catheter in place for urine retention, urine output in the last 8 hours is 85 mL. INTEGUMENTARY: Skin is warm and dry with no evidence of clubbing or cyanosis. Midline sternal incision clean dry and well approximated, covered with dry intact dressing. Bilateral lower extremity EVH sites well approximated without redness or drainage. Erythema to his coccyx, dressing clean, dry and intact. NEUROLOGIC: Cranial nerves II through XII intact. MUSKULOSKELETAL: Able to move all extremities, strength equal bilaterally, generalized weakness. PSYCHIATRIC: Alert and oriented to person place and disoriented to time, appropriate affect. - Allied health notes Allied health notes reviewed: nursing - Labs CBC & Chem 7: 09/20/23 04:33 09/20/23 04:33 Labs: Abnormal Lab Results - Last 24 Hours (Table) 09/19/23 09/19/23 09/19/23 Range/Units 11:15 16:46 19:52 RBC (4.30-5.90) m/uL Hgb (13.0-17.5) gm/dL Hct (39.0-53.0) % MCV (80.0-100.0) fL RDW (11.5-15.5) % Sodium (137-145) mmol/L BUN (9-20) mg/dL Creatinine (0.66-1.25) mg/dL POC Glucose (mg/dL) 112 H 165 H 163 H (70-110) mg/dL Calcium (8.4-10.2) mg/dL 09/20/23 09/20/23 Range/Units 04:33 04:33 RBC 2.77 L (4.30-5.90) m/uL Hgb 8.7 L (13.0-17.5) gm/dL Hct 27.8 L (39.0-53.0) % MCV 100.2 H (80.0-100.0) fL RDW 16.3 H (11.5-15.5) % Sodium 132 L (137-145) mmol/L BUN 39 H (9-20) mg/dL Creatinine 2.88 H (0.66-1.25) mg/dL POC Glucose (mg/dL) (70-110) mg/dL Calcium 8.2 L (8.4-10.2) mg/dL - Imaging and Cardiology Chest x-ray: report reviewed, image reviewed Assessment and Plan Assessment: Multivessel coronary artery disease with left main disease, status post three- vessel on pump coronary artery bypass grafting surgery Chronic systolic congestive heart failure with an ejection fraction of 30 to 35%, status post preoperative intra-aortic balloon pump placement Cardiomyopathy Hypertension, currently on midodrine for blood pressure support Hyperlipidemia Diabetes mellitus type 2, with hemoglobin A1c 10.9 in April 2023, preoperative hemoglobin A1c 7.4% on September 01, 2023 Peripheral arterial disease, recent ABIs to right 0.95 and left 0.97 Bilateral pleural effusions on July 16, 2023 CT scan of the chest Obesity with a BMI of 32.7 kg/m Bipolar disorder Developmentally delayed Anxiety History of noncompliance with medical therapy Remote history of nicotine dependence quit smoking over 20 years ago, with an FEV1 of 55% of predicted value and a base volume of 1.43 Postoperative acute blood loss anemia and thrombocytopenia, expected Incidental finding of tiny left pneumothorax, not a complication, resolved Acute kidney injury, status post dialysis cath placement, status post insertion of permacath Elevated transaminase and cardiogenic shock, likely from hypoperfusion, resolved Leukocytosis, positive urine culture for Escherichia coli Medical debility Plan: Continue aspirin, Plavix, and statin. Continue metoprolol tartrate 12.5 mg p.o. twice daily with hold parameters. Continue midodrine 5 mg p.o. 3 times daily per cardiology management. Encourage use of incentive spirometry 10 times every hour while awake. Bronchodilators per pulmonology. Increase activity, ambulate as tolerated. PT/OT/cardiac rehab following. Will monitor daily labs and chest x-rays. Hemodialysis recommendations per nephrology. Avoid nephrotoxic agents. Pain control per current medication regimen. Avoid to Toradol. No narcotics. Continue Hobson catheter for another 24 hours, continue to record strict accurate intake and output. Urine culture positive for Escherichia coli, continue Rocephin for IV antibiotic coverage. Insulin management per internal medicine. Preoperative hemoglobin A1c 7.4%. GI/DVT prophylaxis. Daily weights. Encourage oral intake, supplements ordered. Prognosis remains very guarded. Patient will likely need to be discharged to LTAC due to high level of care, needs extensive rehab, dialysis, daily physician monitoring with daily change in medications and plan based on daily labs. Social work to obtain insurance authorization when patient is ready to be discharged. Insurance is requiring a peer to peer which will be completed today September 20, 2023. More recommendations to follow based on patient's clinical course. Time with Patient: Less than 30
--- NOTE | 2023-09-20 10:51 | P.PN ---
Subjective Patient is seen in follow-up for acute kidney injury, currently hemodialysis dependent. Permacath placed September 16, 2023. Tolerating dialysis well. Denies chest pain or shortness of breath. Oral intake fair. Remains oliguric. Vital signs are stable. General: No acute distress. HEENT: Head exam is unremarkable. LUNGS: No audible rhonchi or wheezes. HEART: Rate and Rhythm are regular. ABDOMEN: Nontender. EXTREMITITES: 1+ edema. Objective - Vital Signs Vital signs: Vital Signs Temp 97.7 F 09/20/23 08:00 Pulse 73 09/20/23 10:00 Resp 15 09/20/23 10:00 BP 125/64 09/20/23 10:00 Pulse Ox 100 09/20/23 10:00 FiO2 40 09/02/23 20:33 Intake & Output 09/19/23 09/20/23 09/20/23 18:59 06:59 18:59 Intake Total 950 Output Total 45 72 15 Balance 905 -72 -15 Intake: IV 50 cefTRIAXone 2 gm In 50 Sodium Chloride 0.9% 50 ml @ 100 mls/hr IVPB Q24HR [facility] Rx#:[id number] Oral 900 Output: Urine 45 72 15 Other: Voiding Method Indwelling Catheter Indwelling Catheter Indwelling Catheter ABP, PAP, CO, CI - Last Documented Arterial Blood Pressure 83/58 Pulmonary Artery Pressure 45/17 Cardiac Output 3.5 Cardiac Index 2 - Labs CBC & Chem 7: 09/20/23 04:33 09/20/23 04:33 Labs: Abnormal Lab Results - Last 24 Hours (Table) 09/19/23 09/19/23 09/19/23 Range/Units 11:15 16:46 19:52 RBC (4.30-5.90) m/uL Hgb (13.0-17.5) gm/dL Hct (39.0-53.0) % MCV (80.0-100.0) fL RDW (11.5-15.5) % Sodium (137-145) mmol/L BUN (9-20) mg/dL Creatinine (0.66-1.25) mg/dL POC Glucose (mg/dL) 112 H 165 H 163 H (70-110) mg/dL Calcium (8.4-10.2) mg/dL 09/20/23 09/20/23 Range/Units 04:33 04:33 RBC 2.77 L (4.30-5.90) m/uL Hgb 8.7 L (13.0-17.5) gm/dL Hct 27.8 L (39.0-53.0) % MCV 100.2 H (80.0-100.0) fL RDW 16.3 H (11.5-15.5) % Sodium 132 L (137-145) mmol/L BUN 39 H (9-20) mg/dL Creatinine 2.88 H (0.66-1.25) mg/dL POC Glucose (mg/dL) (70-110) mg/dL Calcium 8.2 L (8.4-10.2) mg/dL Assessment and Plan Plan: Assessment: 1. Acute kidney injury secondary to ATN secondary to hypotension/cardiogenic shock. Baseline creatinine near 1. Started on hemodialysis September 09, 2023. Permacath placed September 16, 2023. Oliguric. 2. Coronary artery disease status post CABG x 3 September 02, 2023. 3. Shock now off vasopressors. 4. Cardiomyopathy with reduced ejection fraction. 5. Metabolic acidosis secondary to acute kidney injury. Improved postdialysis. Also on oral bicarb. 6. Urinary retention. Status post bladder irrigation and Hobson catheter placement. Urology following. 7. Bleeding from the access site. Status post IV DDAVP and stitch placement. Now resolved. 8. Hyponatremia secondary to acute kidney injury. Hypervolemic. Expect improvement postdialysis. 9. Anemia. Rule out iron deficiency. Plan: Currently seen while undergoing hemodialysis. Encouraged oral intake. Monitor for renal recovery outpatient. Phosphorus level 3.9 dated September 18, 2023. Check iron studies.
[2023-09-20 11:52] LABS: Glucose,Whole Blood 79 mg/dL (70-110)
--- NOTE | 2023-09-20 14:02 | P.PN ---
Subjective Progress Note Date: 09/20/23 63-year-old male patient, was brought into the intensive care unit after having an antibiotic balloon pump inserted this morning and this was done in preparation for coronary artery bypass surgery. The patient is known to have CAD, chronic CHF with impaired ejection fraction of 30 to 35%. The patient has been hospitalized with [facility] and an earlier cardiac catheterization from April 2023 showed a 70% left main, 70% proximal LAD, 30% circumflex and 70% obtuse marginal 1 and 60% mid RCA. The patient has impaired LV function with an EF around 30 to 35% along with mild to moderate MR, and severe pulm hypertension. The patient is scheduled to undergo coronary artery bypass surgery tomorrow. He is currently on room air oxygen. Free of any chest pain. Hemodynamically stable. Augmented blood pressure is around 80. He has some developmental delay and his other comorbid conditions include diabetes mellitus type 2, hypertension and hyperlipidemia. Blood work shows a white cell count of 9, hemoglobin 11.8, platelet count of 206, normal coagulation profile, BUN of 27 with a creatinine of 1 and sodium levels at 138. LFTs are normal. His CAT scan of the chest that was done on 07/16/2023 showed cardiomegaly with small right and left-sided pleural effusion. This is consistent with CHF. No mediastinal lymphadenopathy. The patient is seen today September 02, 2023 in follow-up in the intensive care unit following surgery. He had undergone an on pump coronary artery bypass grafting x 3 with a left internal thoracic artery sequential to diagonal and the LAD. Right SVG from the aorta to the obtuse marginal #1. Left atrial appendage ligation and clipping. He remains intubated on the mechanical ventilator and assist-control mode at a rate of 14, tidal volume 500, FiO2 40% and a PEEP of 10. He remains on propofol at 20 mcg/kg/min. Lactated Ringer's at 50 MLS per hour. He is requiring vasopressin at 0.04 units/min. Insulin drip at 1 unit/h. Norepinephrine at 0.05 mcg/kg/min. Milrinone at 0.25 mcg/kg/min intra-aortic balloon pump remains in place. Mediastinal and right and left split chest tubes remain in place. Cardiac output is 4.7. Cardiac index 2.6. Received albumin. Receiving cefazolin. Heparin for DVT prophylaxis. White count 11.7. Hemoglo bin 11.5. Platelets 84,000. INR 1.4. Sodium 141. Potassium 3.7. Bicarb 22. BUN 22. Creatinine 0.88. Glucose 101. X-ray no overt failure, pneumothorax or sizable consolidation. ABG's are pending. Patient was today on 09/03/2023, patient was extubated last night uneventfully, patient is now on 2 L nasal cannula, his intra-aortic balloon has been removed today patient remains on pressors and on inotropes. Still requiring norepinephrine at 0.02 mcg/kg/min still on milrinone 0.25 mcg/kg/min and on 0.04 units/min of vasopressin. Cardiac output today is 6.5 cardiac index is 3.7 PA pressure 41/17 CVP of 15. Continues to have mediastinal left and right-sided pleural chest tubes in place, had about 780 mL output since surgery. Chest x- ray is showing mostly postoperative changes labs were all reviewed. WBC count is 15.2 hemoglobin 9.2. Basic metabolic profile is normal, creatinine 1.10 up from 0.88 yesterday Reevaluated today on 09/04/2023, patient remains in the ICU on 3 L nasal cannula, insulin drip at 1.5 units/h still receiving norepinephrine at 0.08 mcg/kg/min milrinone 0.1 mcg/kg/min vasopressin at 0.03 units/min. Cardiac output is 5.0 cardiac index 2.8, patient remains marginal at best, he is sitting at the bedside chair, does not seem to be in distress, on 3 L nasal cannula. Chest x- ray showed no evidence of pulmonary edema no evidence of pneumonia he does have a small tiny apical left pneumothorax. WBC count is 17.7 hemoglobin 9.4. Basic metabolic profile is normal however his BUN is 34 creatinine is 1.52, apparently the patient does have sustained some acute kidney injury most likely related to hypotension/acute tubular necrosis. Patient was reevaluated today on 09/05/2023, remains in the ICU, still requiring multiple drips, he is on dopamine at 2.5 mcg/kg/min norepinephrine at 0.03 mcg/kg/min vasopressin 0.03 units/min patient is also on insulin at 1.5 units/h. Cardiac index remains low at 1.9 cardiac output is relatively low at 3.4. Pulmonary artery pressure 44/18, CVP is 12. Patient does not seem to be very much motivated, he is achieving less than 500 cc on incentive spirometry. The last patient is on 2 L nasal cannula, refusing to participate in physical activity, refusing incentive spirometry, chest tubes, remain in place, prognosis remains guarded. Chest x-ray showed mostly bibasilar atelectasis, mild interstitial prominence, I doubt left-sided pneumothorax as documented by radiology Reevaluate today on 09/06/2023, patient is basically about the same. Patient is in the ICU, he is on multiple drips including higher dose of inotrope, milrinone 0.25 he is on norepinephrine at 0.02 mcg/kg/min vasopressin at 0.03 units/min do pamine at 2.5 mcg/kg/min dobutamine at 2.5 mcg/kg/min insulin at 2.5 units an hour, urine output is low, patient received albumin cardiac index is 2.9 today cardiac output is 5.9. His renal functioning is getting a bit worse, patient apparently the patient is developing what seems to be a cardiorenal syndrome. Chest x-ray is showing atelectasis and bibasilar pleural effusions. Patient is not motivated, does not seem to be interested in getting motivated. And been doing poorly with incentive spirometry Reevaluate today on 09/06, patient is basically about the same, he is now postoperative day #5, sitting at the bedside chair, patient is not motivated what bit remains on multiple inotropes and pressors, patient is receiving dopamine at 2.5 mcg/kg/min dobutamine at 5 mcg/kg/min norepinephrine at 0.06 mcg/kg/min vasopressin at 0.03 units/min and he is also on insulin at 3.5 units/ h today he is off milrinone. Cardiac output is 3.8 cardiac index is 2.1 PA pressure 43/15 CVP is 13. Chest x-ray showed mostly atelectasis at the bases. No clear-cut evidence of pulmonary edema. Patient is maintained on 2 L nasal cannula, again the patient is doing extremely poorly with incentive spirometry and does not seem to be motivated at all. Renal functioning seems to be getting worse, his BUN is 63 creatinine 3.54, at this rate I am quite concerned with the patient may end up requiring hemodialysis. This is being addressed by nephrology on the case. Liver enzymes are improving Today on 09/08/2023, patient is now postoperative day #6. Patient is still requiring dobutamine at 0.5 mcg/kg/min, still requiring vasopressin at 0.02 units/min, his norepinephrine is presently on hold, and milrinone was discontinued. Still on insulin at 3 units/h. Surprisingly the patient is not developing congestive heart failure, but he is developing worsening renal failure, and he may end up requiring renal replacement therapy. His PA pressure 40/18, his cardiac output is 3.9 cardiac index is 2.2 chest x-ray is showing bibasilar atelectasis and small left pleural effusion with a small right pleural effusion Gan[place]-Isabell remains in place WBC count is 6 hemoglobin 8.7 basic metabolic profile is normal except for bicarb of 15 and again worsening renal profile BUN is up to 71 creatinine 4.40 Progress note dated September 09, 2023. This is a 63-year-old male, who was seen today in room 266. The patient is status post three-vessel bypass grafting. He went to the operating room on September 01. He is currently on room air. He is receiving insulin at 2 units an hour. In addition, the patient is getting lactated Ringer's at 30 cc an hour, and dobutamine at 2.5 mcg/kg/min. The patient will have hemodialysis for the first time today. Current labs include a white count 6.8, hemoglobin 8.1, hematocrit 24.9, and a platelet count of 105,000. Sodium 135, potassium 4.6, chlorides 107, CO2 12, anion gap 16, BUN 79, creatinine 5.27. Glucose is 141. Calcium 7.6. AST is 300. ALT is 155. Albumin is 2.8. Chest x-ray shows cardiomegaly, with bilateral pleural effusions. Progress note dated September 10, 2023. This is a 63-year-old male who is seen in room 266. Currently, the patient is on room air. The patient is getting insulin drip at 3 units an hour, and continues on dobutamine for cardiovascular support at 5 mcg/kg/min. The patient is still not very motivated, to improve his overall clinical situation. He does poorly on his incentive spirometer. Current laboratory data includes a white count 8.7, hemoglobin 10 hematocrit 30.4, platelet count 119,000. Sodium 135, potassium 4.5, chlorides 104, CO2 14, anion gap 17, BUN 63, and creatinine 4.33. The most recent glucose was 127. AST is 200, ALT 141. Albumin 2.8. Calcium 7.6. The patient's chest x-ray shows some postoperative changes, but has been relatively stable. Progress note dated September 11, 2023. The patient is seen today in room 266. He is currently undergoing hemodialysis. The goal of hemodialysis today is removal of 1 L of fluid. Patient is on room air. The patient is getting saline at 20 cc an hour. The patient continues on dobutamine, for cardiovascular support at 2.5 mcg/kg/min. Current labs include a white count 11.9, hemoglobin 9.5, hematocrit 29.6, and a platelet count of 128,000. Sodium 132, potassium 4.3, chlorides 101, CO2 12, anion gap 19, BUN 53, creatinine 3.70. AST is 102. ALT is 100. Albumin is 2.8. Today's chest x-ray is very stable, and comparable to the x-ray done yesterday. Progress note dated September 12, 2023. The patient is again seen in room 266. Currently, the patient is doing about the same. The patient is on room air. He is getting saline at 20 cc an hour. He will have a permanent hemodialysis catheter placed today. Labs today include a white count 18, hemoglobin 9.8, hematocrit 30.3, and a platelet count of 142,000. Sodium 131, potassium 3.8, chlorides 99, CO2 20, BUN 46, creatinine 2.99. Glucose of 66. Albumin 2.8. The rest of the labs are reviewed. Chest x-ray shows postoperative changes, and persistent right pleural effusion with basilar atelectasis. Progress note dated September 13, 2023. The patient is seen today in room 266. Currently, the patient is on room air. He is getting saline at 20 cc an hour. The patient did have hemodialysis yesterday, and 2 L was removed. This was on September 11. The patient was to have a permanent hemodialysis catheter placed, but he apparently refused it. Current labs include a white count 23.8, hemoglobin 10, hematocrit 31.1, and platelet count 80,000. Sodium 129, potassium 3.9, chlorides 95, CO2 22, BUN 39, creatinine 3.0. Glucose was 126. Calcium 7.8. Total bilirubin 2.3. Albumin is 2.9. No chest x-ray today. Progress note dated September 14, 2023. The patient is again seen today in room 266. Currently he is on room air. The patient is not receiving any IV fluids. He did have hemodialysis yesterday. 1 L was removed, on September 12. He has no specific complaints today. Still doing very poorly on his incentive spirometer. Current labs include a white count 27.2, hemoglobin 9.7, hematocrit 31, and platelet count 69,000. Sodium 129, potassium 4.1, chloride 95, CO2 21, BUN 40, creatinine 2.83. Glucose is 207. Calcium 7.7. Phosphorus 4.7. Magnesium 1.9. Albumin 2.9. Chest x-ray shows some mild fluid overload. The chest x-ray is essentially unchanged. Progress note dated September 15, 2023. The patient is seen today in room 266. Currently he is on room air. He is not requiring any IV fluids. The patient did have hemodialysis yesterday, and 2 L was removed. The patient will have a permanent hemodialysis catheter placed tomorrow. Current labs include a white count 21.9, hemoglobin 10, hematocrit 32.7, and a platelet count of 73,000. Sodium 130, potassium 3.7, chlorides 97, CO2 25, BUN 37, and creatinine 2.58. Albumin is 2.7. Glucose is 128. Urine culture shows evidence of gram-negative bacilli. He was placed on Rocephin yesterday. Chest ultrasound shows a small 4.5 cm pocket on the right. Chest x- ray shows postsurgical changes, and a small right-sided pleural effusion. On today's evaluation on 09/16/2023, the patient is resting comfortably on a c hair. The patient is calm and comfortable. No significant events overnight. The patient is having a low urine output and the patient is going to undergo a permacath insertion today. The patient is calm and comfortable without any signs of respiratory distress. He is using incentive spirometer and pulling approximately 500. He remains in normal sinus rhythm. The chest x-ray is showing postsurgical changes with small bilateral pleural effusions. Hobson catheter still in place. Urine culture is showing E. coli and the patient remains on IV Rocephin. The patient's white cell count is at 15.5 with a hemoglobin of 9.7 and a platelet count of 109. Sodium is at 132, potassium is 3.6, BUN is 48 with a creatinine of 3.34 which is slightly higher compared to yesterday. The patient remains on aspirin, patient is also on metoprolol 12.5 mg p.o. twice a day. He is on Levemir insulin 50 units along with sliding scale insulin coverage. He is on oral bicarb supplements. The patient is currently postop day #15 following a three-vessel bypass surgery. The patient sustained an acute kidney injury postop requiring dialysis. He did not also encountered cardiogenic shock which essentially recovered. On today's evaluation of 09/17/2023, the patient is being seen for a follow-up. The patient is following coronary artery bypass surgery and the patient is postop day #16 following a three-vessel bypass surgery. He sustained acute kidney injury postop requiring hemodialysis. A permacath was inserted yesterday. The patient is doing well on room air oxygen. Denies having any significant respiratory distress. The patient's chest x-ray is showing some CHF which is stable in appearance with increased interstitial pattern bilaterally. The patient was started on hemodialysis via permacath yesterday. The permacath was inserted and the patient was given a hemodialysis session of 1.8 L. Another session of hemodialysis to be done today. Meanwhile, the white cell count is at 17 and this remains elevated as the patient suspected to have urine tract infection with E. coli the patient remains on IV Rocephin. Hemoglobin of 8.8 and a platelet count of his 123. Creatinine is down to 2.37 with a BUN of 35 and a sodium level of 132. No other significant events overnight. The patient is on Levemir insulin 15 units and sliding scale insulin coverage. The patient on metoprolol 12.5 mg p.o. twice a day in addition to aspirin and Plavix. He is on midodrine for hypotension. On today's evaluation of 09/18/2023, the patient is awake and alert on room air oxygen. The patient is undergoing hemodialysis. Denies having any specific complaints. No respiratory difficulties. The chest x-ray was done today and the patient was not found to have any significant abnormalities other than some cardiomegaly and the hemodialysis catheter in the right lung. There is some increased interstitial vascular markings and small bilateral pleural effusions. No evidence of any pneumothorax. Hemoglobin is at 8.9 with a white cell count of 12.8 and a platelet count of 148. BUN is at 45 with a creatinine of 3.2 and a sodium levels at 132. No other significant events otherwise for now. Cardiac rhythm remained sinus. Blood sugar management is also adequate. The patient remains on aspirin and Plavix. The patient on midodrine for blood pressure control.The patient remains on the same dose of metoprolol 12.5 mg twice a day. Patient is also on oral bicarb. On today's evaluation of 09/19/2023, the patient is calm and comfortable. Denies having any specific complaints. The patient is on room air oxygen. No respiratory distress. Permacath was inserted on 09/16/2023. He underwent hemodialysis yesterday. Denies having any shortness of breath. Remains oliguric. Cardiac rhythm is sinus. WBC count of 13 with a hemoglobin 9.4 and a platelet count of 199, BUN is 31 with a creatinine of 2.4 and sodium levels of 135. The patient remains on IV Rocephin. The patient is afebrile and hemodynamically stable. Remains on midodrine 5 mg p.o. 3 times daily. Remains on Levemir insulin 15 units daily along with a slight scale coverage. Remains on aspirin and Plavix. Remains on metoprolol 12.5 mg p.o. twice a day. Working with physical therapy in regards to his mobility. On 09/20/2023, the patient is being seen for a follow-up. The patient is essentially the same undergoing hemodialysis today. Chest x-ray findings are unchanged compared to yesterday. The patient remains in normal sinus rhythm. The chest x-ray is showing CHF with increased pulm vascular markings and edema. Nevertheless, the patient remains on room air oxygen. The white cell count is at 9.1 with a hemoglobin of 8.7. BUN is at 39 with a creatinine of 2.8 and sodium levels at 132. Urine output is quite diminished at this point in time. Patient is being seen by nephrology and cardiothoracic surgery. No chest pain. He is on room air oxygen. He remains on metoprolol 12.5 mg p.o. twice a day. He remains on midodrine. He remains on Levemir insulin. Remains on aspirin and Plavix. Objective - Vital Signs Vital signs: Vital Signs Temp 97.7 F 09/20/23 08:00 Pulse 73 09/20/23 10:00 Resp 15 09/20/23 10:00 BP 125/64 09/20/23 10:00 Pulse Ox 100 09/20/23 10:00 FiO2 40 09/02/23 20:33 Intake & Output 09/19/23 09/20/23 09/20/23 18:59 06:59 18:59 Intake Total 950 Output Total 45 72 15 Balance 905 -72 -15 Intake: IV 50 cefTRIAXone 2 gm In 50 Sodium Chloride 0.9% 50 ml @ 100 mls/hr IVPB Q24HR [facility] Rx#:[id number] Oral 900 Output: Urine 45 72 15 Other: Voiding Method Indwelling Catheter Indwelling Catheter Indwelling Catheter ABP, PAP, CO, CI - Last Documented Arterial Blood Pressure 83/58 Pulmonary Artery Pressure 45/17 Cardiac Output 3.5 Cardiac Index 2 - Exam CONSTITUTIONAL: Sitting up to the bedside chair in the intensive care unit, appears comfortable, cooperative, no apparent acute distress. HEENT: Neck is supple, no JVD, no lymphadenopathy. RESPIRATORY: Lungs sounds essentially clear throughout, diminished to his bilateral bases. Respirations are symmetrical and nonlabored. Currently on room air with oxygen saturations 97%. Able to achieve 500 mL on his incentive spirometry with encouragement and instruction. Weak cough. CARDIOVASCULAR: Regular rhythm and rate. S1 and S2 present, negative for S3, gallop or murmur. Bedside telemetry showing normal sinus rhythm heart rate 74 bpm. Sternum is stable. Palpable peripheral pulses bilaterally, +1 edema generalized. No calf pain or tenderness noted. Heart hugger in place with patient demonstrating appropriate use with much encouragement. Knee-high VARUN hose and sequential compression devices in place to his bilateral lower extremities. GASTROINTESTINAL: Abdomen soft, nontender, nondistended. Active bowel sounds present 4 quadrants. Tolerating diet. Passing flatus. No guarding or rigidity. Bowel movement 09/17/2023. GENITOURINARY: Hemodialysis September 18, 2023 with 2000 mL of ultrafiltration completed. Hobson catheter in place for urine retention, urine output in the last 8 hours is 85 mL. INTEGUMENTARY: Skin is warm and dry with no evidence of clubbing or cyanosis. Midline sternal incision clean dry and well approximated, covered with dry intact dressing. Bilateral lower extremity EVH sites well approximated without redness or drainage. Erythema to his coccyx, dressing clean, dry and intact. NEUROLOGIC: Cranial nerves II through XII intact. MUSKULOSKELETAL: Able to move all extremities, strength equal bilaterally, generalized weakness. PSYCHIATRIC: Alert and oriented to person place and disoriented to time, appropriate affect. - Labs CBC & Chem 7: 09/20/23 04:33 09/20/23 04:33 Labs: Abnormal Lab Results - Last 24 Hours (Table) 09/19/23 09/19/23 09/19/23 Range/Units 11:15 16:46 19:52 RBC (4.30-5.90) m/uL Hgb (13.0-17.5) gm/dL Hct (39.0-53.0) % MCV (80.0-100.0) fL RDW (11.5-15.5) % Sodium (137-145) mmol/L BUN (9-20) mg/dL Creatinine (0.66-1.25) mg/dL POC Glucose (mg/dL) 112 H 165 H 163 H (70-110) mg/dL Calcium (8.4-10.2) mg/dL 09/20/23 09/20/23 Range/Units 04:33 04:33 RBC 2.77 L (4.30-5.90) m/uL Hgb 8.7 L (13.0-17.5) gm/dL Hct 27.8 L (39.0-53.0) % MCV 100.2 H (80.0-100.0) fL RDW 16.3 H (11.5-15.5) % Sodium 132 L (137-145) mmol/L BUN 39 H (9-20) mg/dL Creatinine 2.88 H (0.66-1.25) mg/dL POC Glucose (mg/dL) (70-110) mg/dL Calcium 8.2 L (8.4-10.2) mg/dL Assessment and Plan Plan: Multivessel coronary artery disease and the patient is S/P three-vessel bypass grafting. Patient is postop day # 17 Postthoracotomy and the surgical wound is clean and the patient's chest rhythm removed. Small bilateral pleural effusions on follow-up chest x-ray. The patient is undergoing hemodialysis this morning. Chest x-ray findings remains essentially unchanged. Chronic systolic CHF, with an ejection fraction of 30 to 35%. The patient is currently on aspirin, Plavix, and the patient is also on metoprolol 12.5 mg p.o. twice a day. Cardiogenic shock and severe LV dysfunction, recovered Acute kidney injury, requiring hemodialysis and the patient is status post permacath catheter insertion last dialysis the patient undergoing periodic hemodialysis. Last hemodialysis session was done yesterday. None for today. The patient remains oliguric. E. coli/gram-negative bacillary urinary tract infection. Patient has a Hobson catheter in place and the patient is on IV Rocephin, white cell count is improved Leukocytosis, improving Peripheral vascular disease. Type 2 diabetes mellitus. Essential hypertension. Hyperlipidemia. History of developmental delay. Bipolar disorder. Chronic anxiety. Prior history of tobacco use. Plan: The patient will continue aggressive pulmonary toileting and using the incentive spirometer on daily basis. Hemodialysis today with ultrafiltration Continue metoprolol 12.5 mg twice a day Continue aspirin and Plavix Avoid nephrotoxic agents Hobson catheter will be kept in place pending urology consultation Continue IV Rocephin regarding E. coli urinary tract infection Hemodialysis per nephrology Continue midodrine 5 mg p.o. 3 times daily Oral bicarb supplements Statins are restarted Will continue to follow
[2023-09-20 16:08] LABS: Glucose,Whole Blood 137 mg/dL (70-110)
[2023-09-20 17:26] LABS: % Iron Saturation 20.19 (15.00-50.00)
[2023-09-20 21:32] LABS: Glucose,Whole Blood 171 mg/dL (70-110)
--- NOTE | 2023-09-21 00:35 | P.PN ---
Subjective Progress Note Date: 09/08/23 63-year-old gentleman with past medical history significant for coronary artery disease, chronic congestive heart failure with ejection fraction of 30%, hypertension hyperlipidemia diabetes mellitus obesity bipolar disorder cardiomyopathy developmental delay history of nicotine dependence who has been admitted with shortness of breath and lower extremity edema. Patient underwent cardiac catheterization right heart catheterization and intra-aortic balloon pump. * Patient has comorbidities including diabetes mellitus type 2, peripheral arterial disease, bipolar disorder, history of anxiety. * Patient to undergo myocardial revascularization 09/02/2023. * 09/03/23 : Patient admitted to medical ICU. Patient was successfully extubated postprocedure. S/p intra-aortic balloon pump which remains in place through right femoral access. Patient remains on norepinephrine drip, Primacor drip, vasopressin. Bilateral chest tubes remained in place. Followed up by medical ICU and cardiac surgery. Follow-up blood work obtained including WBC 15.2 hemoglobin 9.2 platelet count of 98, serum chemistry sodium 141 potassium 4.7 carbon dioxide 24 BUN 26 creatinine 1.1 blood glucose 118-1 33 * 09/04/23: Patient seen and evaluated in medical ICU room 266, patient continues to remain on Levophed, vasopressin and pressor support. Blood work reviewed WBC 17.7 hemoglobin 9.4 platelet 117. Serum chemistry showed sodium 137 potassium 4.9 carbon dioxide 18 BUN 34 creatinine 1.52 blood glucose 123. Overnight patient was refusing to participate with care, patient counseled by cardiac surgery team as well. Brother at bedside, patient does follow co mmands, care plan discussed with nursing staff * 09/05/23: Patient seen and evaluated bedside, vitals reviewed blood pressure running in the 90s overnight. Patient remains on 2 L of oxygen. Blood work reviewed CBC shows WBC 14.3 hemoglobin 9.3 platelet 105 serum chemistry sodium 137 potassium 5.2 carbon dioxide 16 BUN 44 creatinine 1.99 total bilirubin 1.3 AST 464 ALT 128 will need to be monitored, p.atient remains lethargic however easily arousable 09/06/2023 -- Patient is seen and evaluated in ICU at bedside Vital signs reviewed and temperature of 97.9, pulse 90, respiration 14 and blood pressure of 110/40 Lab review shows WBC 14.2, hemoglobin of 8.7 and platelet count of 109, sodium 136, potassium 4.8, BUNs/creatinine of 54/2.91; concern about worsening renal fu nction likely related to cardiorenal syndrome; dopamine has been discontinued Chest x-ray reveals atelectasis and bibasilar pleural effusion --Patient remains on pressors and inotropic agents; cardiac index and cardiac output is being monitored closely -Patient remains on Plavix, aspirin, statins and beta-blockers -- Recommended to increase activity 09/07/2023 ---patient is basically about the same, he is now postoperative day #5, sitting at the bedside chair, patient is not motivated what bit remains on multiple inotropes and pressors, patient is receiving dopamine at 2.5 mcg/kg/min dobutamine at 5 mcg/kg/min norepinephrine at 0.06 mcg/kg/min vasopressin at 0.03 units/min and he is also on insulin at 3.5 units/h today he is off milrinone. Chest x-ray showed mostly atelectasis at the bases. No clear-cut evidence of pulmonary edema. Patient is maintained on 2 L nasal cannula, again the patient is doing extremely poorly with incentive spirometry and does not seem to be motivated at all. Renal functioning seems to be getting worse, his BUN is 63 creatinine 3.54, at this rate I am quite concerned with the patient may end up requiring hemodialysis. This is being addressed by nephrology on the case. Liver enzymes are improving Continue pressors and inotropes continue to monitor cardiac index and cardiac output Continue dopamine, continue dobutamine, patient is off milrinone today. However he is still requiring norepinephrine and vasopressin Continue Plavix beta-blockers aspirin and statin Titrate pressors and inotropes as tolerated 09/08/2023 --patient is seen and evaluated with family at bedside; now postoperative day # 6. -- Patient is still requiring dobutamine at 0.5 mcg/kg/min, still requiring vasopressin at 0.02 units/min, his norepinephrine is presently on hold, and milrinone was discontinued. Still on insulin at 3 units/h. -- chest x-ray is showing bibasilar atelectasis and small left pleural effusion with a small right pleural effusion -- WBC count is 6 hemoglobin 8.7 basic metabolic profile is normal except for bicarb of 15 and again worsening renal profile BUN is up to 71 creatinine 4.40 -Renal function continues to worsen; nephrology on board and planning to continue with IV Lasix and oral sodium bicarbonate; plan for possible hemodialysis in a.m. if urine output does not improve 09/09/2023 Patient is awake alert but looks very tired and lethargic lying in chair. No significant chest pain. Patient has average appetite No significant dyspnea but looks very weak Patient required pressors Patient planned and considered for hemodialysis given his worsening renal function today 5.2 compared with 1.5 upon admission He has severe cardiomyopathy with ejection fraction 20 to 25% and currently on aspirin and Plavix and amiodarone drip. Also he required pressors as above, cardiology following closely. 09/10/2023 Patient still lethargic still sitting in chair No much difference clinically from yesterday A plan to undergo hemodialysis today for first-line, hemodialysis catheter in place. Patient is oliguric. He is currently getting dobutamine and insulin drip 3 units/h He is also on aspirin and Plavix and metoprolol 09/11/2023 Patient remains very lethargic No new complaint He remains on dobutamine drip at 2.5 He is getting the third round of hemodialysis today His insulin drip switched to sliding scale and Levemir Continue with dual antiplatelet therapy Labs showing stable hemoglobin 9.5. Platelet 1 28,000 09/12/2023 Patient looks more awake and alert today, he still generally weak sitting up in chair. No chest pain no dyspnea, no other specific complaint he Is getting hemodialysis. Creatinine down to 2.9. Hemoglobin stable, platelet count stable. He was started on Levemir 14 and twice daily yesterday, his sugar was on the low side this morning therefore we are going to lower the dose to Levemir 15 units at bedtime with close monitoring. Started also on sodium bicarb ] I am resuming the care of the patient on 09/16/2022 Patient looks more energetic relaxed and sitting up in bed compared to last week He denies any specific complaint Hobson catheter in place No chest pain or dyspnea He is on ceftriaxone, urine culture growing E. coli. Patient has leukocytosis about 17,000 Also his sugars controlled on Levemir 15 units increased today to 17 units Rest of labs reviewed and they are stable. Creatinine 2.3 and patient had permacath placed yesterday undergoing hemodialysis 09/18/2023 No chest pain no dyspnea No abdominal pain and tolerates diet well He still on ceftriaxone for sensitive E. coli in the urine culture Is on aspirin and Plavix and metoprolol Hemodialysis per nephrology Sugar slightly on the low side so we lowered his Levemir to 15 units daily 09/19/2023 Patient denies chest pain. Denies any other complaint He has average appetite but no abdominal pain and nausea diarrhea Hobson catheter in place. Glucose was low this morning therefore we lowered his Levemir 17 units down to 15 units Continue with dual antiplatelet therapy with aspirin and Plavix and ceftriaxone and amiodarone 09/20/2023 H day patient getting more energetic. Today he is up in bed eating his breakfast. He denies chest pain or dyspnea No other new complaint Patient planned for hemodialysis today Objective - Vital Signs Vital signs: Vital Signs Temp 97.2 F L 09/20/23 12:49 Pulse 76 09/20/23 13:00 Resp 14 09/20/23 13:00 BP 114/57 09/20/23 13:00 Pulse Ox 95 09/20/23 13:00 FiO2 40 09/02/23 20:33 Intake & Output 09/19/23 09/20/23 09/20/23 18:59 06:59 18:59 Intake Total 950 500 Output Total 45 72 3015 Balance 765 -77 -2116 Intake: IV 50 cefTRIAXone 2 gm In 50 Sodium Chloride 0.9% 50 ml @ 100 mls/hr IVPB Q24HR [facility] Rx#:[id number] Oral 900 Hemodialysis 500 Output: Urine 45 72 15 Hemodialysis 3000 Other: Voiding Method Indwelling Catheter Indwelling Catheter Indwelling Catheter ABP, PAP, CO, CI - Last Documented Arterial Blood Pressure 83/58 Pulmonary Artery Pressure 45/17 Cardiac Output 3.5 Cardiac Index 2 - Exam -GENERAL: The patient is alert and oriented x3, not in any acute distress. Well developed, well nourished. Lethargic and weak HEENT: Pupils are round and equally reacting to light. EOMI. No scleral icterus. No conjunctival pallor. Normocephalic, atraumatic. No pharyngeal erythema. No thyromegaly. CARDIOVASCULAR: S1 and S2 present. No murmurs, rubs, or gallops. PULMONARY: Chest is clear to auscultation, no wheezing , no crackles. ABDOMEN: Soft, nontender, nondistended, normoactive bowel sounds. No palpable organomegaly. MUSCULOSKELETAL: No joint swelling or deformity. -EXTREMITIES: No cyanosis, clubbing, bilateral pitting leg edema.-follow-up with wound service at the [facility] We recommend close monitoring of this metabolic panel (BMP ) while patient is on Lasix, also monitoring of complete cell count (CBC) NEUROLOGICAL: Gross neurological examination did not reveal any focal deficits. SKIN: No rashes. no petechiae. - Labs CBC & Chem 7: 09/20/23 04:33 09/20/23 04:33 Labs: Abnormal Lab Results - Last 24 Hours (Table) 09/19/23 09/19/23 09/20/23 Range/Units 16:46 19:52 04:33 RBC 2.77 L (4.30-5.90) m/uL Hgb 8.7 L (13.0-17.5) gm/dL Hct 27.8 L (39.0-53.0) % MCV 100.2 H (80.0-100.0) fL RDW 16.3 H (11.5-15.5) % Sodium (137-145) mmol/L BUN (9-20) mg/dL Creatinine (0.66-1.25) mg/dL POC Glucose (mg/dL) 165 H 163 H (70-110) mg/dL Calcium (8.4-10.2) mg/dL 09/20/23 Range/Units 04:33 RBC (4.30-5.90) m/uL Hgb (13.0-17.5) gm/dL Hct (39.0-53.0) % MCV (80.0-100.0) fL RDW (11.5-15.5) % Sodium 132 L (137-145) mmol/L BUN 39 H (9-20) mg/dL Creatinine 2.88 H (0.66-1.25) mg/dL POC Glucose (mg/dL) (70-110) mg/dL Calcium 8.2 L (8.4-10.2) mg/dL Assessment and Plan Assessment: Acute on chronic systolic ejection of congestive heart failure with ejection fraction worsened 35% down to 25% Cardiogenic shock Acute kidney injury requiring hemodialysis Peripheral vascular disease Hypertension Hyperlipidemia Diabetes mellitus Bipolar disorder Plan: Continue with pressors per senior scrum master will follow the clinical case closely Pulmonary/critical care team Continue with insulin Levemir 17 units Continue with amiodarone and aspirin and Plavix On metoprolol Continue with hemodialysis per superintendent storage area Several consultants on the case DVT prophylaxis with subcutaneous heparin GI prophylaxis with Protonix Prognosis is guarded
[2023-09-21 05:25] LABS: Anisocytosis Slight; HCT 27.7 % (39.0-53.0); HGB 8.5 gm/dL (13.0-17.5); Hypochromasia Moderate; MCH 30.8 pg (25.0-35.0); MCHC 30.6 g/dL (31.0-37.0); MCV 100.6 fL (80.0-100.0); Macrocytosis Slight; Mean Platelet Volume 8.5; Platelet Count 187 k/uL (150-450); RBC 2.76 m/uL (4.30-5.90); RDW 16.2 % (11.5-15.5); WBC 7.6 k/uL (3.8-10.6)
[2023-09-21 05:41] LABS: African American GFR (CKD) 30 (>60 ml/min/1.73 sqM); Anion Gap 10 mmol/L; Blood Urea Nitrogen 28 mg/dL (9-20); Calcium 8.1 mg/dL (8.4-10.2); Carbon Dioxide 26 mmol/L (22-30); Chloride 97 mmol/L (98-107); Glucose 156 mg/dL (74-99); Non-African American GFR(CKD) 26 (>60 ml/min/1.73 sqM); Potassium 3.7 mmol/L (3.5-5.1); Sodium 133 mmol/L (137-145)
[2023-09-21 06:27] LABS: Glucose,Whole Blood 123 mg/dL (70-110)
--- NOTE | 2023-09-21 09:33 | P.PN ---
Subjective Progress Note Date: 09/21/23 Principal diagnosis: Triple-vessel coronary artery disease with left main disease. Previous medical history of hypertension, hyperlipidemia, diabetes mellitus, chronic systolic he art failure with reduced ejection fraction/ischemic cardiomyopathy, bipolar disorder, obesity, peripheral vascular disease, developmental delay, previous tobacco dependence, noncompliance POD #20 right heart catheterization, ultrasound guided access, placement of intra-aortic balloon pump from right femoral access performed by Dr. Monreal. POD #19 on pump coronary artery bypass grafting x 3, left internal thoracic artery (in-situ) sequential to diagonal and left anterior descending coronary a rtery, right greater saphenous vein from aorta to obtuse marginal artery #1, left atrial appendage ligation with #35mm AtriClip, endoscopic bilateral greater saphenous vein harvest, graft flow measurements using the [employer]-stim flow meter system, trans-esophageal echo Postoperative acute blood loss anemia and thrombocytopenia, expected given hemodilution and cardiopulmonary bypass LEONARDO, status post placement of temp dialysis cath by Dr. Adkins, status post permacath by Dr. Weller Elevated transaminases, likely due to hypoperfusion, trending down Cardiogenic shock, resolved E. coli UTI, treated The patient was seen and examined sitting up in recliner this morning in no acute distress. Currently in sinus rhythm, blood pressure stable. Currently on room air with oxygen saturation in the high 90s. Continues to receive dialysis on Saturday, Saturday, Saturday schedule. Patient is in good spirits and improving daily. Chest x-ray, labs reviewed. Peer to peer completed yesterday with [facility] insurance, denied coverage for LTAC. Will start authorization for [facility]. No other new concerns. Objective - Vital Signs Vital signs: Vital Signs Temp 97.5 F L 09/21/23 08:00 Pulse 75 09/21/23 08:00 Resp 16 09/21/23 08:00 BP 116/57 09/21/23 08:00 Pulse Ox 96 09/21/23 08:00 FiO2 40 09/02/23 20:33 Intake & Output 09/20/23 09/21/23 09/21/23 18:59 06:59 18:59 Intake Total 950 150 Output Total 3045 95 10 Balance 140 Weight 86.1 kg Intake: IV 50 cefTRIAXone 2 gm In 50 Sodium Chloride 0.9% 50 ml @ 100 mls/hr IVPB Q24HR [facility] Rx#:[id number] Oral 400 150 Hemodialysis 500 Output: Urine 45 95 10 Hemodialysis 3000 Other: Voiding Method Indwelling Catheter Indwelling Catheter ABP, PAP, CO, CI - Last Documented Arterial Blood Pressure 83/58 Pulmonary Artery Pressure 45/17 Cardiac Output 3.5 Cardiac Index 2 - Exam CONSTITUTIONAL: Appears comfortable, no acute distress RESPIRATORY: Lungs sounds diminished bilaterally. Respirations even, nonlabored. Currently on room air with oxygen saturation 97%. Only able to achieve 500 mL on incentive spirometry CARDIOVASCULAR: S1, S2 present. Regular rate and rhythm, sinus rhythm on telemetry. Sternum stable. Palpable peripheral pulses bilaterally. Generalized edema present. No calf pain or tenderness noted. Heart hugger, antiembolism stockings, SCDs present. GASTROINTESTINAL: Abdomen soft, nontender, nondistended. Active bowel sounds present 4 quadrants. Tolerating minimal diet. Positive bowel movement 09/19 GENITOURINARY: Hobson present, minimal output 125 mL in the last 24 hours. Right subclavian permacath present INTEGUMENTARY: Skin is warm and dry. Anterior chest incision well approximated. Bilateral lower extremity EVH sites well approximated without redness or drainage. NEUROLOGIC: Cranial nerves II through XII intact MUSKULOSKELETAL: Able to move all extremities, strength equal bilaterally, generalized weakness present PSYCHIATRIC: Alert and oriented - Allied health notes Allied health notes reviewed: nursing - Labs CBC & Chem 7: 09/21/23 04:02 09/21/23 04:02 Labs: Abnormal Lab Results - Last 24 Hours (Table) 09/20/23 09/20/23 09/20/23 Range/Units 04:33 16:07 21:27 RBC (4.30-5.90) m/uL Hgb (13.0-17.5) gm/dL Hct (39.0-53.0) % MCV (80.0-100.0) fL MCHC (31.0-37.0) g/dL RDW (11.5-15.5) % Sodium (137-145) mmol/L Chloride (98-107) mmol/L BUN (9-20) mg/dL Creatinine (0.66-1.25) mg/dL Glucose (74-99) mg/dL POC Glucose (mg/dL) 137 H 171 H (70-110) mg/dL Calcium (8.4-10.2) mg/dL Iron 43 L (65-175) UG/DL TIBC 213 L (228-460) UG/DL Transferrin 152.0 L (204.0-354.0) mg/dL Ferritin 663.0 H (22.0-322.0) ng/mL 09/21/23 09/21/23 09/21/23 Range/Units 04:02 04:02 06:25 RBC 2.76 L (4.30-5.90) m/uL Hgb 8.5 L (13.0-17.5) gm/dL Hct 27.7 L (39.0-53.0) % MCV 100.6 H (80.0-100.0) fL MCHC 30.6 L (31.0-37.0) g/dL RDW 16.2 H (11.5-15.5) % Sodium 133 L (137-145) mmol/L Chloride 97 L (98-107) mmol/L BUN 28 H (9-20) mg/dL Creatinine 2.57 H (0.66-1.25) mg/dL Glucose 156 H (74-99) mg/dL POC Glucose (mg/dL) 123 H (70-110) mg/dL Calcium 8.1 L (8.4-10.2) mg/dL Iron (65-175) UG/DL TIBC (228-460) UG/DL Transferrin (204.0-354.0) mg/dL Ferritin (22.0-322.0) ng/mL - Imaging and Cardiology Chest x-ray: image reviewed Assessment and Plan Assessment: Triple-vessel coronary artery disease with left main disease, status post three- vessel on pump CABG History of hypertension Hyperlipidemia, treated, cholesterol 135, LDL 60, triglycerides 178 Diabetes mellitus, preoperative hemoglobin A1c 7.4% Chronic systolic heart failure with reduced ejection fraction/ischemic cardiomyopathy, EF 30-35%, preoperative placement of intra-aortic balloon pump Bipolar disorder Obesity Peripheral vascular disease, right FAIZAN 0.95, left FAIZAN 0.97 Developmental delay Previous tobacco dependence Moderate COPD, preoperative FEV1 55% of predicted Noncompliance Postoperative acute blood loss anemia and thrombocytopenia, expected Incidental finding of tiny left pneumothorax, not a complication, resolved LEONARDO, status post dialysis cath placement Elevated transaminases, cardiogenic shock, likely from hypoperfusion, resolved Medical debility E. coli UTI Plan: Continue aspirin, statin, Plavix and beta-feliberto with hold parameters Continue midodrine Encourage use of incentive spirometry 10 times every hour while awake. Bronchodilators per pulmonology Increase activity, ambulate as tolerated. PT/OT/cardiac rehab following Will monitor daily labs and chest x-rays Dialysis per nephrology, dialysis Saturday, Saturday, Saturday Avoid nephrotoxins Pain control per current medication regimen. Avoid to Toradol. No narcotics Continue Rocephin Continue to record strict accurate intake and output Insulin management per internal medicine GI/DVT prophylaxis Daily weights Encourage oral intake, supplements ordered Patient needs continued encouragement to participate in his care Patient will need rehab at discharge, peer to peer unsuccessful for LTAC, will attempt insurance authorization for [facility] Will place transfer orders for 3 S. cardiac stepdown unit, may transfer when bed available More recommendations to follow based on patient's clinical course.
--- NOTE | 2023-09-21 09:42 | P.PN ---
Subjective Patient is seen in follow-up for acute kidney injury, currently hemodialysis dependent. Permacath placed September 16, 2023. No problems with dialysis yesterday. Denies chest pain or shortness of breath. Oral intake fair. Remains oliguric. Vital signs are stable. General: No acute distress. HEENT: Head exam is unremarkable. LUNGS: No audible rhonchi or wheezes. HEART: Rate and Rhythm are regular. ABDOMEN: Nontender. EXTREMITITES: 1+ edema. Objective - Vital Signs Vital signs: Vital Signs Temp 97.5 F L 09/21/23 08:00 Pulse 75 09/21/23 08:00 Resp 16 09/21/23 08:00 BP 116/57 09/21/23 08:00 Pulse Ox 96 09/21/23 08:00 FiO2 40 09/02/23 20:33 Intake & Output 09/20/23 09/21/23 09/21/23 18:59 06:59 18:59 Intake Total 950 150 Output Total 3045 95 10 Balance -2094 140 Weight 86.1 kg Intake: IV 50 cefTRIAXone 2 gm In 50 Sodium Chloride 0.9% 50 ml @ 100 mls/hr IVPB Q24HR [facility] Rx#:[id number] Oral 400 150 Hemodialysis 500 Output: Urine 45 95 10 Hemodialysis 3000 Other: Voiding Method Indwelling Catheter Indwelling Catheter ABP, PAP, CO, CI - Last Documented Arterial Blood Pressure 83/58 Pulmonary Artery Pressure 45/17 Cardiac Output 3.5 Cardiac Index 2 - Labs CBC & Chem 7: 09/21/23 04:02 09/21/23 04:02 Labs: Abnormal Lab Results - Last 24 Hours (Table) 09/20/23 09/20/23 09/20/23 Range/Units 04:33 16:07 21:27 RBC (4.30-5.90) m/uL Hgb (13.0-17.5) gm/dL Hct (39.0-53.0) % MCV (80.0-100.0) fL MCHC (31.0-37.0) g/dL RDW (11.5-15.5) % Sodium (137-145) mmol/L Chloride (98-107) mmol/L BUN (9-20) mg/dL Creatinine (0.66-1.25) mg/dL Glucose (74-99) mg/dL POC Glucose (mg/dL) 137 H 171 H (70-110) mg/dL Calcium (8.4-10.2) mg/dL Iron 43 L (65-175) UG/DL TIBC 213 L (228-460) UG/DL Transferrin 152.0 L (204.0-354.0) mg/dL Ferritin 663.0 H (22.0-322.0) ng/mL 09/21/23 09/21/23 09/21/23 Range/Units 04:02 04:02 06:25 RBC 2.76 L (4.30-5.90) m/uL Hgb 8.5 L (13.0-17.5) gm/dL Hct 27.7 L (39.0-53.0) % MCV 100.6 H (80.0-100.0) fL MCHC 30.6 L (31.0-37.0) g/dL RDW 16.2 H (11.5-15.5) % Sodium 133 L (137-145) mmol/L Chloride 97 L (98-107) mmol/L BUN 28 H (9-20) mg/dL Creatinine 2.57 H (0.66-1.25) mg/dL Glucose 156 H (74-99) mg/dL POC Glucose (mg/dL) 123 H (70-110) mg/dL Calcium 8.1 L (8.4-10.2) mg/dL Iron (65-175) UG/DL TIBC (228-460) UG/DL Transferrin (204.0-354.0) mg/dL Ferritin (22.0-322.0) ng/mL Assessment and Plan Plan: Assessment: 1. Acute kidney injury secondary to ATN secondary to hypotension/cardiogenic shock. Baseline creatinine near 1. Started on hemodialysis September 09, 2023. Permacath placed September 16, 2023. Oliguric. 2. Coronary artery disease status post CABG x 3 September 02, 2023. 3. Shock now off vasopressors. 4. Cardiomyopathy with reduced ejection fraction. 5. Metabolic acidosis secondary to acute kidney injury. Improved postdialysis. Also on oral bicarb. 6. Urinary retention. Status post bladder irrigation and Hobson catheter placement. Urology following. 7. Bleeding from the access site. Status post IV DDAVP and stitch placement. Now resolved. 8. Hyponatremia secondary to acute kidney injury. Hypervolemic. Expect improvement postdialysis. 9. Anemia. Iron deficiency noted. Plan: Hemodialysis Saturday. Encouraged oral intake. Monitor for renal recovery outpatient. Phosphorus level 3.9 dated September 18, 2023. Add IV iron. Add Aranesp.
[2023-09-21] MEDS: SODIUM FERRIC GLUCONAT-SUCROSE 125 MG in SODIUM CHLORIDE 0.9% 100 ML IVPB SCH (10:30)
[2023-09-21] MEDS: DARBEPOETIN ALFA 40 MCG/0.4 ML SYRINGE SQ SCH (10:53)
[2023-09-21 11:21] LABS: Glucose,Whole Blood 139 mg/dL (70-110)
--- NOTE | 2023-09-21 14:27 | P.PN ---
Subjective Progress Note Date: 09/21/23 63-year-old male patient, was brought into the intensive care unit after having an antibiotic balloon pump inserted this morning and this was done in preparation for coronary artery bypass surgery. The patient is known to have CAD, chronic CHF with impaired ejection fraction of 30 to 35%. The patient has been hospitalized with [facility] and an earlier cardiac catheterization from April 2023 showed a 70% left main, 70% proximal LAD, 30% circumflex and 70% obtuse marginal 1 and 60% mid RCA. The patient has impaired LV function with an EF around 30 to 35% along with mild to moderate MR, and severe pulm hypertension. The patient is scheduled to undergo coronary artery bypass surgery tomorrow. He is currently on room air oxygen. Free of any chest pain. Hemodynamically stable. Augmented blood pressure is around 80. He has some developmental delay and his other comorbid conditions include diabetes mellitus type 2, hypertension and hyperlipidemia. Blood work shows a white cell count of 9, hemoglobin 11.8, platelet count of 206, normal coagulation profile, BUN of 27 with a creatinine of 1 and sodium levels at 138. LFTs are normal. His CAT scan of the chest that was done on 07/16/2023 showed cardiomegaly with small right and left-sided pleural effusion. This is consistent with CHF. No mediastinal lymphadenopathy. The patient is seen today September 02, 2023 in follow-up in the intensive care unit following surgery. He had undergone an on pump coronary artery bypass grafting x 3 with a left internal thoracic artery sequential to diagonal and the LAD. Right SVG from the aorta to the obtuse marginal #1. Left atrial appendage ligation and clipping. He remains intubated on the mechanical ventilator and assist-control mode at a rate of 14, tidal volume 500, FiO2 40% and a PEEP of 10. He remains on propofol at 20 mcg/kg/min. Lactated Ringer's at 50 MLS per hour. He is requiring vasopressin at 0.04 units/min. Insulin drip at 1 unit/h. Norepinephrine at 0.05 mcg/kg/min. Milrinone at 0.25 mcg/kg/min intra-aortic balloon pump remains in place. Mediastinal and right and left split chest tubes remain in place. Cardiac output is 4.7. Cardiac index 2.6. Received albumin. Receiving cefazolin. Heparin for DVT prophylaxis. White count 11.7. Hemoglo bin 11.5. Platelets 84,000. INR 1.4. Sodium 141. Potassium 3.7. Bicarb 22. BUN 22. Creatinine 0.88. Glucose 101. X-ray no overt failure, pneumothorax or sizable consolidation. ABG's are pending. Patient was today on 09/03/2023, patient was extubated last night uneventfully, patient is now on 2 L nasal cannula, his intra-aortic balloon has been removed today patient remains on pressors and on inotropes. Still requiring norepinephrine at 0.02 mcg/kg/min still on milrinone 0.25 mcg/kg/min and on 0.04 units/min of vasopressin. Cardiac output today is 6.5 cardiac index is 3.7 PA pressure 41/17 CVP of 15. Continues to have mediastinal left and right-sided pleural chest tubes in place, had about 780 mL output since surgery. Chest x- ray is showing mostly postoperative changes labs were all reviewed. WBC count is 15.2 hemoglobin 9.2. Basic metabolic profile is normal, creatinine 1.10 up from 0.88 yesterday Reevaluated today on 09/04/2023, patient remains in the ICU on 3 L nasal cannula, insulin drip at 1.5 units/h still receiving norepinephrine at 0.08 mcg/kg/min milrinone 0.1 mcg/kg/min vasopressin at 0.03 units/min. Cardiac output is 5.0 cardiac index 2.8, patient remains marginal at best, he is sitting at the bedside chair, does not seem to be in distress, on 3 L nasal cannula. Chest x- ray showed no evidence of pulmonary edema no evidence of pneumonia he does have a small tiny apical left pneumothorax. WBC count is 17.7 hemoglobin 9.4. Basic metabolic profile is normal however his BUN is 34 creatinine is 1.52, apparently the patient does have sustained some acute kidney injury most likely related to hypotension/acute tubular necrosis. Patient was reevaluated today on 09/05/2023, remains in the ICU, still requiring multiple drips, he is on dopamine at 2.5 mcg/kg/min norepinephrine at 0.03 mcg/kg/min vasopressin 0.03 units/min patient is also on insulin at 1.5 units/h. Cardiac index remains low at 1.9 cardiac output is relatively low at 3.4. Pulmonary artery pressure 44/18, CVP is 12. Patient does not seem to be very much motivated, he is achieving less than 500 cc on incentive spirometry. The last patient is on 2 L nasal cannula, refusing to participate in physical activity, refusing incentive spirometry, chest tubes, remain in place, prognosis remains guarded. Chest x-ray showed mostly bibasilar atelectasis, mild interstitial prominence, I doubt left-sided pneumothorax as documented by radiology Reevaluate today on 09/06/2023, patient is basically about the same. Patient is in the ICU, he is on multiple drips including higher dose of inotrope, milrinone 0.25 he is on norepinephrine at 0.02 mcg/kg/min vasopressin at 0.03 units/min do pamine at 2.5 mcg/kg/min dobutamine at 2.5 mcg/kg/min insulin at 2.5 units an hour, urine output is low, patient received albumin cardiac index is 2.9 today cardiac output is 5.9. His renal functioning is getting a bit worse, patient apparently the patient is developing what seems to be a cardiorenal syndrome. Chest x-ray is showing atelectasis and bibasilar pleural effusions. Patient is not motivated, does not seem to be interested in getting motivated. And been doing poorly with incentive spirometry Reevaluate today on 09/06, patient is basically about the same, he is now postoperative day #5, sitting at the bedside chair, patient is not motivated what bit remains on multiple inotropes and pressors, patient is receiving dopamine at 2.5 mcg/kg/min dobutamine at 5 mcg/kg/min norepinephrine at 0.06 mcg/kg/min vasopressin at 0.03 units/min and he is also on insulin at 3.5 units/ h today he is off milrinone. Cardiac output is 3.8 cardiac index is 2.1 PA pressure 43/15 CVP is 13. Chest x-ray showed mostly atelectasis at the bases. No clear-cut evidence of pulmonary edema. Patient is maintained on 2 L nasal cannula, again the patient is doing extremely poorly with incentive spirometry and does not seem to be motivated at all. Renal functioning seems to be getting worse, his BUN is 63 creatinine 3.54, at this rate I am quite concerned with the patient may end up requiring hemodialysis. This is being addressed by nephrology on the case. Liver enzymes are improving Today on 09/08/2023, patient is now postoperative day #6. Patient is still requiring dobutamine at 0.5 mcg/kg/min, still requiring vasopressin at 0.02 units/min, his norepinephrine is presently on hold, and milrinone was discontinued. Still on insulin at 3 units/h. Surprisingly the patient is not developing congestive heart failure, but he is developing worsening renal failure, and he may end up requiring renal replacement therapy. His PA pressure 40/18, his cardiac output is 3.9 cardiac index is 2.2 chest x-ray is showing bibasilar atelectasis and small left pleural effusion with a small right pleural effusion Becket-Isabell remains in place WBC count is 6 hemoglobin 8.7 basic metabolic profile is normal except for bicarb of 15 and again worsening renal profile BUN is up to 71 creatinine 4.40 Progress note dated September 09, 2023. This is a 63-year-old male, who was seen today in room 266. The patient is status post three-vessel bypass grafting. He went to the operating room on September 01. He is currently on room air. He is receiving insulin at 2 units an hour. In addition, the patient is getting lactated Ringer's at 30 cc an hour, and dobutamine at 2.5 mcg/kg/min. The patient will have hemodialysis for the first time today. Current labs include a white count 6.8, hemoglobin 8.1, hematocrit 24.9, and a platelet count of 105,000. Sodium 135, potassium 4.6, chlorides 107, CO2 12, anion gap 16, BUN 79, creatinine 5.27. Glucose is 141. Calcium 7.6. AST is 300. ALT is 155. Albumin is 2.8. Chest x-ray shows cardiomegaly, with bilateral pleural effusions. Progress note dated September 10, 2023. This is a 63-year-old male who is seen in room 266. Currently, the patient is on room air. The patient is getting insulin drip at 3 units an hour, and continues on dobutamine for cardiovascular support at 5 mcg/kg/min. The patient is still not very motivated, to improve his overall clinical situation. He does poorly on his incentive spirometer. Current laboratory data includes a white count 8.7, hemoglobin 10 hematocrit 30.4, platelet count 119,000. Sodium 135, potassium 4.5, chlorides 104, CO2 14, anion gap 17, BUN 63, and creatinine 4.33. The most recent glucose was 127. AST is 200, ALT 141. Albumin 2.8. Calcium 7.6. The patient's chest x-ray shows some postoperative changes, but has been relatively stable. Progress note dated September 11, 2023. The patient is seen today in room 266. He is currently undergoing hemodialysis. The goal of hemodialysis today is removal of 1 L of fluid. Patient is on room air. The patient is getting saline at 20 cc an hour. The patient continues on dobutamine, for cardiovascular support at 2.5 mcg/kg/min. Current labs include a white count 11.9, hemoglobin 9.5, hematocrit 29.6, and a platelet count of 128,000. Sodium 132, potassium 4.3, chlorides 101, CO2 12, anion gap 19, BUN 53, creatinine 3.70. AST is 102. ALT is 100. Albumin is 2.8. Today's chest x-ray is very stable, and comparable to the x-ray done yesterday. Progress note dated September 12, 2023. The patient is again seen in room 266. Currently, the patient is doing about the same. The patient is on room air. He is getting saline at 20 cc an hour. He will have a permanent hemodialysis catheter placed today. Labs today include a white count 18, hemoglobin 9.8, hematocrit 30.3, and a platelet count of 142,000. Sodium 131, potassium 3.8, chlorides 99, CO2 20, BUN 46, creatinine 2.99. Glucose of 66. Albumin 2.8. The rest of the labs are reviewed. Chest x-ray shows postoperative changes, and persistent right pleural effusion with basilar atelectasis. Progress note dated September 13, 2023. The patient is seen today in room 266. Currently, the patient is on room air. He is getting saline at 20 cc an hour. The patient did have hemodialysis yesterday, and 2 L was removed. This was on September 11. The patient was to have a permanent hemodialysis catheter placed, but he apparently refused it. Current labs include a white count 23.8, hemoglobin 10, hematocrit 31.1, and platelet count 80,000. Sodium 129, potassium 3.9, chlorides 95, CO2 22, BUN 39, creatinine 3.0. Glucose was 126. Calcium 7.8. Total bilirubin 2.3. Albumin is 2.9. No chest x-ray today. Progress note dated September 14, 2023. The patient is again seen today in room 266. Currently he is on room air. The patient is not receiving any IV fluids. He did have hemodialysis yesterday. 1 L was removed, on September 12. He has no specific complaints today. Still doing very poorly on his incentive spirometer. Current labs include a white count 27.2, hemoglobin 9.7, hematocrit 31, and platelet count 69,000. Sodium 129, potassium 4.1, chloride 95, CO2 21, BUN 40, creatinine 2.83. Glucose is 207. Calcium 7.7. Phosphorus 4.7. Magnesium 1.9. Albumin 2.9. Chest x-ray shows some mild fluid overload. The chest x-ray is essentially unchanged. Progress note dated September 15, 2023. The patient is seen today in room 266. Currently he is on room air. He is not requiring any IV fluids. The patient did have hemodialysis yesterday, and 2 L was removed. The patient will have a permanent hemodialysis catheter placed tomorrow. Current labs include a white count 21.9, hemoglobin 10, hematocrit 32.7, and a platelet count of 73,000. Sodium 130, potassium 3.7, chlorides 97, CO2 25, BUN 37, and creatinine 2.58. Albumin is 2.7. Glucose is 128. Urine culture shows evidence of gram-negative bacilli. He was placed on Rocephin yesterday. Chest ultrasound shows a small 4.5 cm pocket on the right. Chest x- ray shows postsurgical changes, and a small right-sided pleural effusion. On today's evaluation on 09/16/2023, the patient is resting comfortably on a c hair. The patient is calm and comfortable. No significant events overnight. The patient is having a low urine output and the patient is going to undergo a permacath insertion today. The patient is calm and comfortable without any signs of respiratory distress. He is using incentive spirometer and pulling approximately 500. He remains in normal sinus rhythm. The chest x-ray is showing postsurgical changes with small bilateral pleural effusions. Hobson catheter still in place. Urine culture is showing E. coli and the patient remains on IV Rocephin. The patient's white cell count is at 15.5 with a hemoglobin of 9.7 and a platelet count of 109. Sodium is at 132, potassium is 3.6, BUN is 48 with a creatinine of 3.34 which is slightly higher compared to yesterday. The patient remains on aspirin, patient is also on metoprolol 12.5 mg p.o. twice a day. He is on Levemir insulin 50 units along with sliding scale insulin coverage. He is on oral bicarb supplements. The patient is currently postop day #15 following a three-vessel bypass surgery. The patient sustained an acute kidney injury postop requiring dialysis. He did not also encountered cardiogenic shock which essentially recovered. On today's evaluation of 09/17/2023, the patient is being seen for a follow-up. The patient is following coronary artery bypass surgery and the patient is postop day #16 following a three-vessel bypass surgery. He sustained acute kidney injury postop requiring hemodialysis. A permacath was inserted yesterday. The patient is doing well on room air oxygen. Denies having any significant respiratory distress. The patient's chest x-ray is showing some CHF which is stable in appearance with increased interstitial pattern bilaterally. The patient was started on hemodialysis via permacath yesterday. The permacath was inserted and the patient was given a hemodialysis session of 1.8 L. Another session of hemodialysis to be done today. Meanwhile, the white cell count is at 17 and this remains elevated as the patient suspected to have urine tract infection with E. coli the patient remains on IV Rocephin. Hemoglobin of 8.8 and a platelet count of his 123. Creatinine is down to 2.37 with a BUN of 35 and a sodium level of 132. No other significant events overnight. The patient is on Levemir insulin 15 units and sliding scale insulin coverage. The patient on metoprolol 12.5 mg p.o. twice a day in addition to aspirin and Plavix. He is on midodrine for hypotension. On today's evaluation of 09/18/2023, the patient is awake and alert on room air oxygen. The patient is undergoing hemodialysis. Denies having any specific complaints. No respiratory difficulties. The chest x-ray was done today and the patient was not found to have any significant abnormalities other than some cardiomegaly and the hemodialysis catheter in the right lung. There is some increased interstitial vascular markings and small bilateral pleural effusions. No evidence of any pneumothorax. Hemoglobin is at 8.9 with a white cell count of 12.8 and a platelet count of 148. BUN is at 45 with a creatinine of 3.2 and a sodium levels at 132. No other significant events otherwise for now. Cardiac rhythm remained sinus. Blood sugar management is also adequate. The patient remains on aspirin and Plavix. The patient on midodrine for blood pressure control.The patient remains on the same dose of metoprolol 12.5 mg twice a day. Patient is also on oral bicarb. On today's evaluation of 09/19/2023, the patient is calm and comfortable. Denies having any specific complaints. The patient is on room air oxygen. No respiratory distress. Permacath was inserted on 09/16/2023. He underwent hemodialysis yesterday. Denies having any shortness of breath. Remains oliguric. Cardiac rhythm is sinus. WBC count of 13 with a hemoglobin 9.4 and a platelet count of 199, BUN is 31 with a creatinine of 2.4 and sodium levels of 135. The patient remains on IV Rocephin. The patient is afebrile and hemodynamically stable. Remains on midodrine 5 mg p.o. 3 times daily. Remains on Levemir insulin 15 units daily along with a slight scale coverage. Remains on aspirin and Plavix. Remains on metoprolol 12.5 mg p.o. twice a day. Working with physical therapy in regards to his mobility. On 09/20/2023, the patient is being seen for a follow-up. The patient is essentially the same undergoing hemodialysis today. Chest x-ray findings are unchanged compared to yesterday. The patient remains in normal sinus rhythm. The chest x-ray is showing CHF with increased pulm vascular markings and edema. Nevertheless, the patient remains on room air oxygen. The white cell count is at 9.1 with a hemoglobin of 8.7. BUN is at 39 with a creatinine of 2.8 and sodium levels at 132. Urine output is quite diminished at this point in time. Patient is being seen by nephrology and cardiothoracic surgery. No chest pain. He is on room air oxygen. He remains on metoprolol 12.5 mg p.o. twice a day. He remains on midodrine. He remains on Levemir insulin. Remains on aspirin and Plavix. On today's evaluation on 09/21/2023, the patient is doing well. He has no specific complaints. He is postop day #19 following three-vessel bypass surgery. He also sustained an acute kidney injury. He is sitting up in a chair and is currently on room air oxygen. Undergoing hemodialysis 3 times a week M [facility]. He is awaiting insurance verification authorization for subacute rehabilitation. No other major concerns for now. The blood counts at 7.6 with a hemoglobin 8.5, BUN is 28 with a creatinine of 2.5 and a sodium levels at 133. The patient is afebrile. The patient is hemodynamically stable. The patient remains oliguric. Noted his baseline creatinine was at 1.0. No dialysis will be done over the weekend and next dialysis is probably on Saturday. Remains on Aranesp. Remains on IV iron. Objective - Vital Signs Vital signs: Vital Signs Temp 97.5 F L 09/21/23 08:00 Pulse 75 09/21/23 08:00 Resp 16 09/21/23 08:00 BP 116/57 09/21/23 08:00 Pulse Ox 96 09/21/23 08:00 FiO2 40 09/02/23 20:33 Intake & Output 09/20/23 09/21/23 09/21/23 18:59 06:59 18:59 Intake Total 950 150 Output Total 3045 95 10 Balance -2094 140 Weight 86.1 kg Intake: IV 50 cefTRIAXone 2 gm In 50 Sodium Chloride 0.9% 50 ml @ 100 mls/hr IVPB Q24HR [facility] Rx#:[id number] Oral 400 150 Hemodialysis 500 Output: Urine 45 95 10 Hemodialysis 3000 Other: Voiding Method Indwelling Catheter Indwelling Catheter ABP, PAP, CO, CI - Last Documented Arterial Blood Pressure 83/58 Pulmonary Artery Pressure 45/17 Cardiac Output 3.5 Cardiac Index 2 - Exam CONSTITUTIONAL: Sitting up to the bedside chair in the intensive care unit, appears comfortable, cooperative, no apparent acute distress. HEENT: Neck is supple, no JVD, no lymphadenopathy. RESPIRATORY: Lungs sounds essentially clear throughout, diminished to his bilateral bases. Respirations are symmetrical and nonlabored. Currently on room air with oxygen saturations 97%. Able to achieve 500 mL on his incentive spirom etry with encouragement and instruction. Weak cough. CARDIOVASCULAR: Regular rhythm and rate. S1 and S2 present, negative for S3, gallop or murmur. Bedside telemetry showing normal sinus rhythm heart rate 74 bpm. Sternum is stable. Palpable peripheral pulses bilaterally, +1 edema generalized. No calf pain or tenderness noted. Heart hugger in place with patient demonstrating appropriate use with much encouragement. Knee-high VARUN hose and sequential compression devices in place to his bilateral lower extremities. GASTROINTESTINAL: Abdomen soft, nontender, nondistended. Active bowel sounds present 4 quadrants. Tolerating diet. Passing flatus. No guarding or rigidity. Bowel movement 09/17/2023. GENITOURINARY: Hemodialysis September 18, 2023 with 2000 mL of ultrafiltration completed. Hobson catheter in place for urine retention, urine output in the last 8 hours is 85 mL. INTEGUMENTARY: Skin is warm and dry with no evidence of clubbing or cyanosis. Midline sternal incision clean dry and well approximated, covered with dry intact dressing. Bilateral lower extremity EVH sites well approximated without redness or drainage. Erythema to his coccyx, dressing clean, dry and intact. NEUROLOGIC: Cranial nerves II through XII intact. MUSKULOSKELETAL: Able to move all extremities, strength equal bilaterally, generalized weakness. PSYCHIATRIC: Alert and oriented to person place and disoriented to time, appropriate affect. - Labs CBC & Chem 7: 09/21/23 04:02 09/21/23 04:02 Labs: Abnormal Lab Results - Last 24 Hours (Table) 09/20/23 09/20/23 09/20/23 Range/Units 04:33 16:07 21:27 RBC (4.30-5.90) m/uL Hgb (13.0-17.5) gm/dL Hct (39.0-53.0) % MCV (80.0-100.0) fL MCHC (31.0-37.0) g/dL RDW (11.5-15.5) % Sodium (137-145) mmol/L Chloride (98-107) mmol/L BUN (9-20) mg/dL Creatinine (0.66-1.25) mg/dL Glucose (74-99) mg/dL POC Glucose (mg/dL) 137 H 171 H (70-110) mg/dL Calcium (8.4-10.2) mg/dL Iron 43 L (65-175) UG/DL TIBC 213 L (228-460) UG/DL Transferrin 152.0 L (204.0-354.0) mg/dL Ferritin 663.0 H (22.0-322.0) ng/mL 09/21/23 09/21/23 09/21/23 Range/Units 04:02 04:02 06:25 RBC 2.76 L (4.30-5.90) m/uL Hgb 8.5 L (13.0-17.5) gm/dL Hct 27.7 L (39.0-53.0) % MCV 100.6 H (80.0-100.0) fL MCHC 30.6 L (31.0-37.0) g/dL RDW 16.2 H (11.5-15.5) % Sodium 133 L (137-145) mmol/L Chloride 97 L (98-107) mmol/L BUN 28 H (9-20) mg/dL Creatinine 2.57 H (0.66-1.25) mg/dL Glucose 156 H (74-99) mg/dL POC Glucose (mg/dL) 123 H (70-110) mg/dL Calcium 8.1 L (8.4-10.2) mg/dL Iron (65-175) UG/DL TIBC (228-460) UG/DL Transferrin (204.0-354.0) mg/dL Ferritin (22.0-322.0) ng/mL Assessment and Plan Plan: Multivessel coronary artery disease and the patient is S/P three-vessel bypass grafting. Patient is postop day # 19 Postthoracotomy and the surgical wound is clean and the patient's chest rhythm removed. Small bilateral pleural effusions on follow-up chest x-ray. The patient is undergoing hemodialysis this morning. Chest x-ray findings remains essentially unchanged. Anticipate improvement of pleural effusion with recurrent hemodialysis and ultrafiltration. Chronic systolic CHF, with an ejection fraction of 30 to 35%. The patient is currently on aspirin, Plavix, and the patient is also on metoprolol 12.5 mg p.o. twice a day. Cardiogenic shock and severe LV dysfunction, recovered Acute kidney injury, requiring hemodialysis and the patient is status post permacath catheter insertion last dialysis the patient undergoing periodic hemodialysis. Last hemodialysis session was done yesterday. None for today. The patient remains oliguric. E. coli/gram-negative bacillary urinary tract infection. Patient has a Hobson catheter in place and the patient is on IV Rocephin, white cell count is improved Leukocytosis, improving Peripheral vascular disease. Type 2 diabetes mellitus. Essential hypertension. Hyperlipidemia. History of developmental delay. Bipolar disorder. Chronic anxiety. Prior history of tobacco use. Plan: The patient will continue aggressive pulmonary toileting and using the incentive spirometer on daily basis. No hemodialysis to be done over the weekend Respiratory status is stable and the patient is currently on room air oxygen. Continue metoprolol 12.5 mg twice a day Continue aspirin and Plavix Avoid nephrotoxic agents Hobson catheter will be kept in place pending urology consultation C complete the course of IV Rocephin regarding urine tract infection. Hemodialysis per nephrology Continue midodrine 5 mg p.o. 3 times daily Oral bicarb supplements Continue statins Will continue to follow, awaiting authorization for subacute rehabilitation.
--- NOTE | 2023-09-21 14:49 | XR ---
EXAM: XR chest 1V portable CLINICAL INDICATION:Male, 63 years old with history of postop CABG; [facility] COMPARISON: Chest x-rays 09/20/2023 and 09/19/2023 TECHNIQUE: Chest single view. FINDINGS: Lines/tubes/devices: Right chest large bore dialysis catheter with tip over the cavoatrial junction. Monitoring leads and other extrinsic densities over the chest. Cardiomediastinum: Heart size is stable, mildly to moderately enlarged. Sternal wires and left atrial appendage occlusio n device. Vasculature: Stable central vascular congestive changes, and increased interstitial markings bilater ally. Lungs/pleura: Similar blunting of the right more than left costophrenic angle, suggesting pleural effusions, and bi basilar opacities suggesting atelectasis/airspace disease. Bones/soft tissues: Bony thorax appears grossly unchanged as seen. Regional soft tissues appear unremarkable. IMPRESSION: Cardiomegaly with central vascular congestion, bilateral pleural effusions and bibasilar atelectasis/ airspace disease. No significant interval change. Correlate for CHF/fluid overload.
[2023-09-21 16:23] LABS: Glucose,Whole Blood 188 mg/dL (70-110)
--- NOTE | 2023-09-22 01:17 | P.PN ---
Subjective Progress Note Date: 09/08/23 63-year-old gentleman with past medical history significant for coronary artery disease, chronic congestive heart failure with ejection fraction of 30%, hypertension hyperlipidemia diabetes mellitus obesity bipolar disorder cardiomyopathy developmental delay history of nicotine dependence who has been admitted with shortness of breath and lower extremity edema. Patient underwent cardiac catheterization right heart catheterization and intra-aortic balloon pump. * Patient has comorbidities including diabetes mellitus type 2, peripheral arterial disease, bipolar disorder, history of anxiety. * Patient to undergo myocardial revascularization 09/02/2023. * 09/03/23 : Patient admitted to medical ICU. Patient was successfully extubated postprocedure. S/p intra-aortic balloon pump which remains in place through right femoral access. Patient remains on norepinephrine drip, Primacor drip, vasopressin. Bilateral chest tubes remained in place. Followed up by medical ICU and cardiac surgery. Follow-up blood work obtained including WBC 15.2 hemoglobin 9.2 platelet count of 98, serum chemistry sodium 141 potassium 4.7 carbon dioxide 24 BUN 26 creatinine 1.1 blood glucose 118-1 33 * 09/04/23: Patient seen and evaluated in medical ICU room 266, patient continues to remain on Levophed, vasopressin and pressor support. Blood work reviewed WBC 17.7 hemoglobin 9.4 platelet 117. Serum chemistry showed sodium 137 potassium 4.9 carbon dioxide 18 BUN 34 creatinine 1.52 blood glucose 123. Overnight patient was refusing to participate with care, patient counseled by cardiac surgery team as well. Brother at bedside, patient does follow co mmands, care plan discussed with nursing staff * 09/05/23: Patient seen and evaluated bedside, vitals reviewed blood pressure running in the 90s overnight. Patient remains on 2 L of oxygen. Blood work reviewed CBC shows WBC 14.3 hemoglobin 9.3 platelet 105 serum chemistry sodium 137 potassium 5.2 carbon dioxide 16 BUN 44 creatinine 1.99 total bilirubin 1.3 AST 464 ALT 128 will need to be monitored, p.atient remains lethargic however easily arousable 09/06/2023 -- Patient is seen and evaluated in ICU at bedside Vital signs reviewed and temperature of 97.9, pulse 90, respiration 14 and blood pressure of 110/40 Lab review shows WBC 14.2, hemoglobin of 8.7 and platelet count of 109, sodium 136, potassium 4.8, BUNs/creatinine of 54/2.91; concern about worsening renal fu nction likely related to cardiorenal syndrome; dopamine has been discontinued Chest x-ray reveals atelectasis and bibasilar pleural effusion --Patient remains on pressors and inotropic agents; cardiac index and cardiac output is being monitored closely -Patient remains on Plavix, aspirin, statins and beta-blockers -- Recommended to increase activity 09/07/2023 ---patient is basically about the same, he is now postoperative day #5, sitting at the bedside chair, patient is not motivated what bit remains on multiple inotropes and pressors, patient is receiving dopamine at 2.5 mcg/kg/min dobutamine at 5 mcg/kg/min norepinephrine at 0.06 mcg/kg/min vasopressin at 0.03 units/min and he is also on insulin at 3.5 units/h today he is off milrinone. Chest x-ray showed mostly atelectasis at the bases. No clear-cut evidence of pulmonary edema. Patient is maintained on 2 L nasal cannula, again the patient is doing extremely poorly with incentive spirometry and does not seem to be motivated at all. Renal functioning seems to be getting worse, his BUN is 63 creatinine 3.54, at this rate I am quite concerned with the patient may end up requiring hemodialysis. This is being addressed by nephrology on the case. Liver enzymes are improving Continue pressors and inotropes continue to monitor cardiac index and cardiac output Continue dopamine, continue dobutamine, patient is off milrinone today. However he is still requiring norepinephrine and vasopressin Continue Plavix beta-blockers aspirin and statin Titrate pressors and inotropes as tolerated 09/08/2023 --patient is seen and evaluated with family at bedside; now postoperative day # 6. -- Patient is still requiring dobutamine at 0.5 mcg/kg/min, still requiring vasopressin at 0.02 units/min, his norepinephrine is presently on hold, and milrinone was discontinued. Still on insulin at 3 units/h. -- chest x-ray is showing bibasilar atelectasis and small left pleural effusion with a small right pleural effusion -- WBC count is 6 hemoglobin 8.7 basic metabolic profile is normal except for bicarb of 15 and again worsening renal profile BUN is up to 71 creatinine 4.40 -Renal function continues to worsen; nephrology on board and planning to continue with IV Lasix and oral sodium bicarbonate; plan for possible hemodialysis in a.m. if urine output does not improve 09/09/2023 Patient is awake alert but looks very tired and lethargic lying in chair. No significant chest pain. Patient has average appetite No significant dyspnea but looks very weak Patient required pressors Patient planned and considered for hemodialysis given his worsening renal function today 5.2 compared with 1.5 upon admission He has severe cardiomyopathy with ejection fraction 20 to 25% and currently on aspirin and Plavix and amiodarone drip. Also he required pressors as above, cardiology following closely. 09/10/2023 Patient still lethargic still sitting in chair No much difference clinically from yesterday A plan to undergo hemodialysis today for first-line, hemodialysis catheter in place. Patient is oliguric. He is currently getting dobutamine and insulin drip 3 units/h He is also on aspirin and Plavix and metoprolol 09/11/2023 Patient remains very lethargic No new complaint He remains on dobutamine drip at 2.5 He is getting the third round of hemodialysis today His insulin drip switched to sliding scale and Levemir Continue with dual antiplatelet therapy Labs showing stable hemoglobin 9.5. Platelet 1 28,000 09/12/2023 Patient looks more awake and alert today, he still generally weak sitting up in chair. No chest pain no dyspnea, no other specific complaint he Is getting hemodialysis. Creatinine down to 2.9. Hemoglobin stable, platelet count stable. He was started on Levemir 14 and twice daily yesterday, his sugar was on the low side this morning therefore we are going to lower the dose to Levemir 15 units at bedtime with close monitoring. Started also on sodium bicarb ] I am resuming the care of the patient on 09/16/2022 Patient looks more energetic relaxed and sitting up in bed compared to last week He denies any specific complaint Hobson catheter in place No chest pain or dyspnea He is on ceftriaxone, urine culture growing E. coli. Patient has leukocytosis about 17,000 Also his sugars controlled on Levemir 15 units increased today to 17 units Rest of labs reviewed and they are stable. Creatinine 2.3 and patient had permacath placed yesterday undergoing hemodialysis 09/18/2023 No chest pain no dyspnea No abdominal pain and tolerates diet well He still on ceftriaxone for sensitive E. coli in the urine culture Is on aspirin and Plavix and metoprolol Hemodialysis per nephrology Sugar slightly on the low side so we lowered his Levemir to 15 units daily 09/19/2023 Patient denies chest pain. Denies any other complaint He has average appetite but no abdominal pain and nausea diarrhea Hobson catheter in place. Glucose was low this morning therefore we lowered his Levemir 17 units down to 15 units Continue with dual antiplatelet therapy with aspirin and Plavix and ceftriaxone and amiodarone 09/20/2023 H day patient getting more energetic. Today he is up in bed eating his breakfast. He denies chest pain or dyspnea No other new complaint Patient planned for hemodialysis today 09/21/2023 Patient lying in bed comfortable No new complaints He completed his ceftriaxone which was discontinued, For his UTI. Currently no urinary symptoms He is on aspirin and Plavix sugars controlled Objective - Vital Signs Vital signs: Vital Signs Temp 98 F 09/21/23 16:00 Pulse 80 09/21/23 19:00 Resp 18 09/21/23 19:00 BP 117/63 09/21/23 18:00 Pulse Ox 97 09/21/23 19:00 FiO2 40 09/02/23 20:33 Intake & Output 09/21/23 09/21/23 09/22/23 06:59 18:59 06:59 Intake Total 700 Output Total 95 43 10 Balance -95 657 -10 Weight 86.1 kg Intake: IV 150 Sodium Ferric Gluconat- 100 Sucrose 125 mg In Sodium Chloride 0.9% 100 ml @ 100 mls/hr IVPB DAILY [facility] Rx#:[id number] cefTRIAXone 2 gm In 50 Sodium Chloride 0.9% 50 ml @ 100 mls/hr IVPB Q24HR [facility] Rx#:[id number] Oral 550 Output: Urine 95 43 10 Other: Voiding Method Indwelling Catheter Indwelling Catheter # Bowel Movements 1 ABP, PAP, CO, CI - Last Documented Arterial Blood Pressure 83/58 Pulmonary Artery Pressure 45/17 Cardiac Output 3.5 Cardiac Index 2 - Exam -GENERAL: The patient is alert and oriented x3, not in any acute distress. Well developed, well nourished. Lethargic and weak HEENT: Pupils are round and equally reacting to light. EOMI. No scleral icterus. No conjunctival pallor. Normocephalic, atraumatic. No pharyngeal erythema. No thyromegaly. CARDIOVASCULAR: S1 and S2 present. No murmurs, rubs, or gallops. PULMONARY: Chest is clear to auscultation, no wheezing , no crackles. ABDOMEN: Soft, nontender, nondistended, normoactive bowel sounds. No palpable organomegaly. MUSCULOSKELETAL: No joint swelling or deformity. -EXTREMITIES: No cyanosis, clubbing, bilateral pitting leg edema.-follow-up with wound service at the [facility] We recommend close monitoring of this metabolic panel (BMP ) while patient is on Lasix, also monitoring of complete cell count (CBC) NEUROLOGICAL: Gross neurological examination did not reveal any focal deficits. SKIN: No rashes. no petechiae. - Labs CBC & Chem 7: 09/21/23 04:02 09/21/23 04:02 Labs: Abnormal Lab Results - Last 24 Hours (Table) 09/20/23 09/21/23 09/21/23 Range/Units 21:27 04:02 04:02 RBC 2.76 L (4.30-5.90) m/uL Hgb 8.5 L (13.0-17.5) gm/dL Hct 27.7 L (39.0-53.0) % MCV 100.6 H (80.0-100.0) fL MCHC 30.6 L (31.0-37.0) g/dL RDW 16.2 H (11.5-15.5) % Sodium 133 L (137-145) mmol/L Chloride 97 L (98-107) mmol/L BUN 28 H (9-20) mg/dL Creatinine 2.57 H (0.66-1.25) mg/dL Glucose 156 H (74-99) mg/dL POC Glucose (mg/dL) 171 H (70-110) mg/dL Calcium 8.1 L (8.4-10.2) mg/dL 09/21/23 09/21/23 09/21/23 Range/Units 06:25 11:19 16:22 RBC (4.30-5.90) m/uL Hgb (13.0-17.5) gm/dL Hct (39.0-53.0) % MCV (80.0-100.0) fL MCHC (31.0-37.0) g/dL RDW (11.5-15.5) % Sodium (137-145) mmol/L Chloride (98-107) mmol/L BUN (9-20) mg/dL Creatinine (0.66-1.25) mg/dL Glucose (74-99) mg/dL POC Glucose (mg/dL) 123 H 139 H 188 H (70-110) mg/dL Calcium (8.4-10.2) mg/dL Assessment and Plan Assessment: Acute on chronic systolic ejection of congestive heart failure with ejection fraction worsened 35% down to 25% Cardiogenic shock Acute kidney injury requiring hemodialysis Peripheral vascular disease Hypertension Hyperlipidemia Diabetes mellitus Bipolar disorder Plan: Continue with pressors per caustic mixer will follow the clinical case closely Pulmonary/critical care team Continue with insulin Levemir 17 units Continue with amiodarone and aspirin and Plavix On metoprolol Continue with hemodialysis per industrial engineering technician Several consultants on the case DVT prophylaxis with subcutaneous heparin GI prophylaxis with Protonix Prognosis is guarded
[2023-09-22 05:08] LABS: Anisocytosis Slight; HCT 26.4 % (39.0-53.0); HGB 8.4 gm/dL (13.0-17.5); Hypochromasia Moderate; MCV 100.2 fL (80.0-100.0); Macrocytosis Slight; Mean Platelet Volume 8.6; Platelet Count 194 k/uL (150-450); RBC 2.63 m/uL (4.30-5.90); RDW 16.6 % (11.5-15.5); WBC 7.8 k/uL (3.8-10.6)
[2023-09-22 06:42] LABS: Glucose,Whole Blood 110 mg/dL (70-110)
--- NOTE | 2023-09-22 07:36 | P.PN ---
Subjective Progress Note Date: 09/22/23 Principal diagnosis: Triple-vessel coronary artery disease with left main disease. Previous medical history of hypertension, hyperlipidemia, diabetes mellitus, chronic systolic he art failure with reduced ejection fraction/ischemic cardiomyopathy, bipolar disorder, obesity, peripheral vascular disease, developmental delay, previous tobacco dependence, noncompliance POD #21 right heart catheterization, ultrasound guided access, placement of intra-aortic balloon pump from right femoral access performed by Dr. Monreal. POD #20 on pump coronary artery bypass grafting x 3, left internal thoracic artery (in-situ) sequential to diagonal and left anterior descending coronary a rtery, right greater saphenous vein from aorta to obtuse marginal artery #1, left atrial appendage ligation with #35mm AtriClip, endoscopic bilateral greater saphenous vein harvest, graft flow measurements using the [employer]-stim flow meter system, trans-esophageal echo Postoperative acute blood loss anemia and thrombocytopenia, expected given hemodilution and cardiopulmonary bypass LEONARDO, status post placement of temp dialysis cath by Dr. Adkins, status post permacath by Dr. Weller Elevated transaminases, likely due to hypoperfusion, trending down Cardiogenic shock, resolved E. coli UTI, treated The patient was seen and examined sitting up in recliner this morning in no acute distress. Currently in sinus rhythm, blood pressure stable. Currently on room air with oxygen saturation in the high 90s. Continues to receive dialysis on Saturday, Saturday, Saturday schedule. Patient is in good spirits and improving daily. Chest x-ray, labs reviewed. Transfer orders placed yesterday for 3 S. cardiac stepdown unit, no bed availability, patient remains in the intensive care unit as a 3 S. overflow. No other new concerns. Objective - Vital Signs Vital signs: Vital Signs Temp 98.1 F 09/22/23 04:00 Pulse 76 09/22/23 04:00 Resp 16 09/22/23 04:00 BP 114/66 09/22/23 04:00 Pulse Ox 96 09/22/23 04:00 FiO2 40 09/02/23 20:33 Intake & Output 09/21/23 09/22/23 09/22/23 18:59 06:59 18:59 Intake Total 700 Output Total 43 25 Balance 657 -25 Weight 88.2 kg Intake: IV 150 Sodium Ferric Gluconat- 100 Sucrose 125 mg In Sodium Chloride 0.9% 100 ml @ 100 mls/hr IVPB DAILY [facility] Rx#:[id number] cefTRIAXone 2 gm In 50 Sodium Chloride 0.9% 50 ml @ 100 mls/hr IVPB Q24HR [facility] Rx#:[id number] Oral 550 Output: Urine 43 25 Other: Voiding Method Indwelling Catheter Indwelling Catheter # Bowel Movements 1 ABP, PAP, CO, CI - Last Documented Arterial Blood Pressure 83/58 Pulmonary Artery Pressure 45/17 Cardiac Output 3.5 Cardiac Index 2 - Exam CONSTITUTIONAL: Appears comfortable, no acute distress RESPIRATORY: Lungs sounds diminished bilaterally. Respirations even, nonlabored. Currently on room air with oxygen saturation 96%. Only able to achieve 500 mL on incentive spirometry CARDIOVASCULAR: S1, S2 present. Regular rate and rhythm, sinus rhythm on telemetry. Sternum stable. Palpable peripheral pulses bilaterally. Trace generalized edema present. No calf pain or tenderness noted. Heart hugger, antiembolism stockings, SCDs present. GASTROINTESTINAL: Abdomen soft, nontender, nondistended. Active bowel sounds present 4 quadrants. Tolerating minimal diet. Positive bowel movement 09/20 GENITOURINARY: Hobson present, minimal output 68 mL in the last 24 hours. Right subclavian permacath present INTEGUMENTARY: Skin is warm and dry. Anterior chest incision well approximated. Bilateral lower extremity EVH sites well approximated without redness or drainage. NEUROLOGIC: Cranial nerves II through XII intact MUSKULOSKELETAL: Able to move all extremities, strength equal bilaterally, generalized weakness present PSYCHIATRIC: Alert and oriented - Labs CBC & Chem 7: 09/22/23 04:18 09/21/23 04:02 Labs: Abnormal Lab Results - Last 24 Hours (Table) 09/21/23 09/21/23 09/22/23 Range/Units 11:19 16:22 04:18 RBC 2.63 L (4.30-5.90) m/uL Hgb 8.4 L (13.0-17.5) gm/dL Hct 26.4 L (39.0-53.0) % MCV 100.2 H (80.0-100.0) fL RDW 16.6 H (11.5-15.5) % POC Glucose (mg/dL) 139 H 188 H (70-110) mg/dL - Imaging and Cardiology Chest x-ray: image reviewed Assessment and Plan Assessment: Triple-vessel coronary artery disease with left main disease, status post three- vessel on pump CABG History of hypertension Hyperlipidemia, treated, cholesterol 135, LDL 60, triglycerides 178 Diabetes mellitus, preoperative hemoglobin A1c 7.4% Chronic systolic heart failure with reduced ejection fraction/ischemic cardiomyopathy, EF 30-35%, preoperative placement of intra-aortic balloon pump Bipolar disorder Obesity Peripheral vascular disease, right FAIZAN 0.95, left FAIZAN 0.97 Developmental delay Previous tobacco dependence Moderate COPD, preoperative FEV1 55% of predicted Noncompliance Postoperative acute blood loss anemia and thrombocytopenia, expected Incidental finding of tiny left pneumothorax, not a complication, resolved LEONARDO, status post dialysis cath placement Elevated transaminases, cardiogenic shock, likely from hypoperfusion, resolved Medical debility E. coli UTI Plan: Continue aspirin, statin, Plavix and beta-feliberto with hold parameters Continue midodrine Encourage use of incentive spirometry 10 times every hour while awake. Bronchodilators per pulmonology Increase activity, ambulate as tolerated. PT/OT/cardiac rehab following Will monitor daily labs and chest x-rays Dialysis per nephrology, dialysis Saturday, Saturday, Saturday Avoid nephrotoxins Pain control per current medication regimen. Avoid to Toradol. No narcotics Continue to record strict accurate intake and output Insulin management per internal medicine GI/DVT prophylaxis Daily weights Encourage oral intake, supplements ordered Patient needs continued encouragement to participate in his care Patient will need rehab at discharge, peer to peer unsuccessful for LTAC, will attempt insurance authorization for [facility] Transfer orders placed for 3 S. cardiac stepdown unit, may transfer when bed a vailable More recommendations to follow based on patient's clinical course.
[2023-09-22 07:40] LABS: African American GFR (CKD) 24 (>60 ml/min/1.73 sqM); Anion Gap 12 mmol/L; Blood Urea Nitrogen 37 mg/dL (9-20); Calcium 8.3 mg/dL (8.4-10.2); Carbon Dioxide 23 mmol/L (22-30); Chloride 99 mmol/L (98-107); Glucose 130 mg/dL (74-99); Non-African American GFR(CKD) 21 (>60 ml/min/1.73 sqM); Potassium 3.9 mmol/L (3.5-5.1); Sodium 134 mmol/L (137-145)
--- NOTE | 2023-09-22 09:27 | P.PN ---
Subjective Progress Note Date: 09/22/23 63-year-old male patient, was brought into the intensive care unit after having an antibiotic balloon pump inserted this morning and this was done in preparation for coronary artery bypass surgery. The patient is known to have CAD, chronic CHF with impaired ejection fraction of 30 to 35%. The patient has been hospitalized with [facility] and an earlier cardiac catheterization from April 2023 showed a 70% left main, 70% proximal LAD, 30% circumflex and 70% obtuse marginal 1 and 60% mid RCA. The patient has impaired LV function with an EF around 30 to 35% along with mild to moderate MR, and severe pulm hypertension. The patient is scheduled to undergo coronary artery bypass surgery tomorrow. He is currently on room air oxygen. Free of any chest pain. Hemodynamically stable. Augmented blood pressure is around 80. He has some developmental delay and his other comorbid conditions include diabetes mellitus type 2, hypertension and hyperlipidemia. Blood work shows a white cell count of 9, hemoglobin 11.8, platelet count of 206, normal coagulation profile, BUN of 27 with a creatinine of 1 and sodium levels at 138. LFTs are normal. His CAT scan of the chest that was done on 07/16/2023 showed cardiomegaly with small right and left-sided pleural effusion. This is consistent with CHF. No mediastinal lymphadenopathy. The patient is seen today September 02, 2023 in follow-up in the intensive care unit following surgery. He had undergone an on pump coronary artery bypass grafting x 3 with a left internal thoracic artery sequential to diagonal and the LAD. Right SVG from the aorta to the obtuse marginal #1. Left atrial appendage ligation and clipping. He remains intubated on the mechanical ventilator and assist-control mode at a rate of 14, tidal volume 500, FiO2 40% and a PEEP of 10. He remains on propofol at 20 mcg/kg/min. Lactated Ringer's at 50 MLS per hour. He is requiring vasopressin at 0.04 units/min. Insulin drip at 1 unit/h. Norepinephrine at 0.05 mcg/kg/min. Milrinone at 0.25 mcg/kg/min intra-aortic balloon pump remains in place. Mediastinal and right and left split chest tubes remain in place. Cardiac output is 4.7. Cardiac index 2.6. Received albumin. Receiving cefazolin. Heparin for DVT prophylaxis. White count 11.7. Hemoglo bin 11.5. Platelets 84,000. INR 1.4. Sodium 141. Potassium 3.7. Bicarb 22. BUN 22. Creatinine 0.88. Glucose 101. X-ray no overt failure, pneumothorax or sizable consolidation. ABG's are pending. Patient was today on 09/03/2023, patient was extubated last night uneventfully, patient is now on 2 L nasal cannula, his intra-aortic balloon has been removed today patient remains on pressors and on inotropes. Still requiring norepinephrine at 0.02 mcg/kg/min still on milrinone 0.25 mcg/kg/min and on 0.04 units/min of vasopressin. Cardiac output today is 6.5 cardiac index is 3.7 PA pressure 41/17 CVP of 15. Continues to have mediastinal left and right-sided pleural chest tubes in place, had about 780 mL output since surgery. Chest x- ray is showing mostly postoperative changes labs were all reviewed. WBC count is 15.2 hemoglobin 9.2. Basic metabolic profile is normal, creatinine 1.10 up from 0.88 yesterday Reevaluated today on 09/04/2023, patient remains in the ICU on 3 L nasal cannula, insulin drip at 1.5 units/h still receiving norepinephrine at 0.08 mcg/kg/min milrinone 0.1 mcg/kg/min vasopressin at 0.03 units/min. Cardiac output is 5.0 cardiac index 2.8, patient remains marginal at best, he is sitting at the bedside chair, does not seem to be in distress, on 3 L nasal cannula. Chest x- ray showed no evidence of pulmonary edema no evidence of pneumonia he does have a small tiny apical left pneumothorax. WBC count is 17.7 hemoglobin 9.4. Basic metabolic profile is normal however his BUN is 34 creatinine is 1.52, apparently the patient does have sustained some acute kidney injury most likely related to hypotension/acute tubular necrosis. Patient was reevaluated today on 09/05/2023, remains in the ICU, still requiring multiple drips, he is on dopamine at 2.5 mcg/kg/min norepinephrine at 0.03 mcg/kg/min vasopressin 0.03 units/min patient is also on insulin at 1.5 units/h. Cardiac index remains low at 1.9 cardiac output is relatively low at 3.4. Pulmonary artery pressure 44/18, CVP is 12. Patient does not seem to be very much motivated, he is achieving less than 500 cc on incentive spirometry. The last patient is on 2 L nasal cannula, refusing to participate in physical activity, refusing incentive spirometry, chest tubes, remain in place, prognosis remains guarded. Chest x-ray showed mostly bibasilar atelectasis, mild interstitial prominence, I doubt left-sided pneumothorax as documented by radiology Reevaluate today on 09/06/2023, patient is basically about the same. Patient is in the ICU, he is on multiple drips including higher dose of inotrope, milrinone 0.25 he is on norepinephrine at 0.02 mcg/kg/min vasopressin at 0.03 units/min do pamine at 2.5 mcg/kg/min dobutamine at 2.5 mcg/kg/min insulin at 2.5 units an hour, urine output is low, patient received albumin cardiac index is 2.9 today cardiac output is 5.9. His renal functioning is getting a bit worse, patient apparently the patient is developing what seems to be a cardiorenal syndrome. Chest x-ray is showing atelectasis and bibasilar pleural effusions. Patient is not motivated, does not seem to be interested in getting motivated. And been doing poorly with incentive spirometry Reevaluate today on 09/06, patient is basically about the same, he is now postoperative day #5, sitting at the bedside chair, patient is not motivated what bit remains on multiple inotropes and pressors, patient is receiving dopamine at 2.5 mcg/kg/min dobutamine at 5 mcg/kg/min norepinephrine at 0.06 mcg/kg/min vasopressin at 0.03 units/min and he is also on insulin at 3.5 units/ h today he is off milrinone. Cardiac output is 3.8 cardiac index is 2.1 PA pressure 43/15 CVP is 13. Chest x-ray showed mostly atelectasis at the bases. No clear-cut evidence of pulmonary edema. Patient is maintained on 2 L nasal cannula, again the patient is doing extremely poorly with incentive spirometry and does not seem to be motivated at all. Renal functioning seems to be getting worse, his BUN is 63 creatinine 3.54, at this rate I am quite concerned with the patient may end up requiring hemodialysis. This is being addressed by nephrology on the case. Liver enzymes are improving Today on 09/08/2023, patient is now postoperative day #6. Patient is still requiring dobutamine at 0.5 mcg/kg/min, still requiring vasopressin at 0.02 units/min, his norepinephrine is presently on hold, and milrinone was discontinued. Still on insulin at 3 units/h. Surprisingly the patient is not developing congestive heart failure, but he is developing worsening renal failure, and he may end up requiring renal replacement therapy. His PA pressure 40/18, his cardiac output is 3.9 cardiac index is 2.2 chest x-ray is showing bibasilar atelectasis and small left pleural effusion with a small right pleural effusion [place] remains in place WBC count is 6 hemoglobin 8.7 basic metabolic profile is normal except for bicarb of 15 and again worsening renal profile BUN is up to 71 creatinine 4.40 Progress note dated September 09, 2023. This is a 63-year-old male, who was seen today in room 266. The patient is status post three-vessel bypass grafting. He went to the operating room on September 01. He is currently on room air. He is receiving insulin at 2 units an hour. In addition, the patient is getting lactated Ringer's at 30 cc an hour, and dobutamine at 2.5 mcg/kg/min. The patient will have hemodialysis for the first time today. Current labs include a white count 6.8, hemoglobin 8.1, hematocrit 24.9, and a platelet count of 105,000. Sodium 135, potassium 4.6, chlorides 107, CO2 12, anion gap 16, BUN 79, creatinine 5.27. Glucose is 141. Calcium 7.6. AST is 300. ALT is 155. Albumin is 2.8. Chest x-ray shows cardiomegaly, with bilateral pleural effusions. Progress note dated September 10, 2023. This is a 63-year-old male who is seen in room 266. Currently, the patient is on room air. The patient is getting insulin drip at 3 units an hour, and continues on dobutamine for cardiovascular support at 5 mcg/kg/min. The patient is still not very motivated, to improve his overall clinical situation. He does poorly on his incentive spirometer. Current laboratory data includes a white count 8.7, hemoglobin 10 hematocrit 30.4, platelet count 119,000. Sodium 135, potassium 4.5, chlorides 104, CO2 14, anion gap 17, BUN 63, and creatinine 4.33. The most recent glucose was 127. AST is 200, ALT 141. Albumin 2.8. Calcium 7.6. The patient's chest x-ray shows some postoperative changes, but has been relatively stable. Progress note dated September 11, 2023. The patient is seen today in room 266. He is currently undergoing hemodialysis. The goal of hemodialysis today is removal of 1 L of fluid. Patient is on room air. The patient is getting saline at 20 cc an hour. The patient continues on dobutamine, for cardiovascular support at 2.5 mcg/kg/min. Current labs include a white count 11.9, hemoglobin 9.5, hematocrit 29.6, and a platelet count of 128,000. Sodium 132, potassium 4.3, chlorides 101, CO2 12, anion gap 19, BUN 53, creatinine 3.70. AST is 102. ALT is 100. Albumin is 2.8. Today's chest x-ray is very stable, and comparable to the x-ray done yesterday. Progress note dated September 12, 2023. The patient is again seen in room 266. Currently, the patient is doing about the same. The patient is on room air. He is getting saline at 20 cc an hour. He will have a permanent hemodialysis catheter placed today. Labs today include a white count 18, hemoglobin 9.8, hematocrit 30.3, and a platelet count of 142,000. Sodium 131, potassium 3.8, chlorides 99, CO2 20, BUN 46, creatinine 2.99. Glucose of 66. Albumin 2.8. The rest of the labs are reviewed. Chest x-ray shows postoperative changes, and persistent right pleural effusion with basilar atelectasis. Progress note dated September 13, 2023. The patient is seen today in room 266. Currently, the patient is on room air. He is getting saline at 20 cc an hour. The patient did have hemodialysis yesterday, and 2 L was removed. This was on September 11. The patient was to have a permanent hemodialysis catheter placed, but he apparently refused it. Current labs include a white count 23.8, hemoglobin 10, hematocrit 31.1, and platelet count 80,000. Sodium 129, potassium 3.9, chlorides 95, CO2 22, BUN 39, creatinine 3.0. Glucose was 126. Calcium 7.8. Total bilirubin 2.3. Albumin is 2.9. No chest x-ray today. Progress note dated September 14, 2023. The patient is again seen today in room 266. Currently he is on room air. The patient is not receiving any IV fluids. He did have hemodialysis yesterday. 1 L was removed, on September 12. He has no specific complaints today. Still doing very poorly on his incentive spirometer. Current labs include a white count 27.2, hemoglobin 9.7, hematocrit 31, and platelet count 69,000. Sodium 129, potassium 4.1, chloride 95, CO2 21, BUN 40, creatinine 2.83. Glucose is 207. Calcium 7.7. Phosphorus 4.7. Magnesium 1.9. Albumin 2.9. Chest x-ray shows some mild fluid overload. The chest x-ray is essentially unchanged. Progress note dated September 15, 2023. The patient is seen today in room 266. Currently he is on room air. He is not requiring any IV fluids. The patient did have hemodialysis yesterday, and 2 L was removed. The patient will have a permanent hemodialysis catheter placed tomorrow. Current labs include a white count 21.9, hemoglobin 10, hematocrit 32.7, and a platelet count of 73,000. Sodium 130, potassium 3.7, chlorides 97, CO2 25, BUN 37, and creatinine 2.58. Albumin is 2.7. Glucose is 128. Urine culture shows evidence of gram-negative bacilli. He was placed on Rocephin yesterday. Chest ultrasound shows a small 4.5 cm pocket on the right. Chest x- ray shows postsurgical changes, and a small right-sided pleural effusion. On today's evaluation on 09/16/2023, the patient is resting comfortably on a c hair. The patient is calm and comfortable. No significant events overnight. The patient is having a low urine output and the patient is going to undergo a permacath insertion today. The patient is calm and comfortable without any signs of respiratory distress. He is using incentive spirometer and pulling approximately 500. He remains in normal sinus rhythm. The chest x-ray is showing postsurgical changes with small bilateral pleural effusions. Hobson catheter still in place. Urine culture is showing E. coli and the patient remains on IV Rocephin. The patient's white cell count is at 15.5 with a hemoglobin of 9.7 and a platelet count of 109. Sodium is at 132, potassium is 3.6, BUN is 48 with a creatinine of 3.34 which is slightly higher compared to yesterday. The patient remains on aspirin, patient is also on metoprolol 12.5 mg p.o. twice a day. He is on Levemir insulin 50 units along with sliding scale insulin coverage. He is on oral bicarb supplements. The patient is currently postop day #15 following a three-vessel bypass surgery. The patient sustained an acute kidney injury postop requiring dialysis. He did not also encountered cardiogenic shock which essentially recovered. On today's evaluation of 09/17/2023, the patient is being seen for a follow-up. The patient is following coronary artery bypass surgery and the patient is postop day #16 following a three-vessel bypass surgery. He sustained acute kidney injury postop requiring hemodialysis. A permacath was inserted yesterday. The patient is doing well on room air oxygen. Denies having any significant respiratory distress. The patient's chest x-ray is showing some CHF which is stable in appearance with increased interstitial pattern bilaterally. The patient was started on hemodialysis via permacath yesterday. The permacath was inserted and the patient was given a hemodialysis session of 1.8 L. Another session of hemodialysis to be done today. Meanwhile, the white cell count is at 17 and this remains elevated as the patient suspected to have urine tract infection with E. coli the patient remains on IV Rocephin. Hemoglobin of 8.8 and a platelet count of his 123. Creatinine is down to 2.37 with a BUN of 35 and a sodium level of 132. No other significant events overnight. The patient is on Levemir insulin 15 units and sliding scale insulin coverage. The patient on metoprolol 12.5 mg p.o. twice a day in addition to aspirin and Plavix. He is on midodrine for hypotension. On today's evaluation of 09/18/2023, the patient is awake and alert on room air oxygen. The patient is undergoing hemodialysis. Denies having any specific complaints. No respiratory difficulties. The chest x-ray was done today and the patient was not found to have any significant abnormalities other than some cardiomegaly and the hemodialysis catheter in the right lung. There is some increased interstitial vascular markings and small bilateral pleural effusions. No evidence of any pneumothorax. Hemoglobin is at 8.9 with a white cell count of 12.8 and a platelet count of 148. BUN is at 45 with a creatinine of 3.2 and a sodium levels at 132. No other significant events otherwise for now. Cardiac rhythm remained sinus. Blood sugar management is also adequate. The patient remains on aspirin and Plavix. The patient on midodrine for blood pressure control.The patient remains on the same dose of metoprolol 12.5 mg twice a day. Patient is also on oral bicarb. On today's evaluation of 09/19/2023, the patient is calm and comfortable. Denies having any specific complaints. The patient is on room air oxygen. No respiratory distress. Permacath was inserted on 09/16/2023. He underwent hemodialysis yesterday. Denies having any shortness of breath. Remains oliguric. Cardiac rhythm is sinus. WBC count of 13 with a hemoglobin 9.4 and a platelet count of 199, BUN is 31 with a creatinine of 2.4 and sodium levels of 135. The patient remains on IV Rocephin. The patient is afebrile and hemodynamically stable. Remains on midodrine 5 mg p.o. 3 times daily. Remains on Levemir insulin 15 units daily along with a slight scale coverage. Remains on aspirin and Plavix. Remains on metoprolol 12.5 mg p.o. twice a day. Working with physical therapy in regards to his mobility. On 09/20/2023, the patient is being seen for a follow-up. The patient is essentially the same undergoing hemodialysis today. Chest x-ray findings are unchanged compared to yesterday. The patient remains in normal sinus rhythm. The chest x-ray is showing CHF with increased pulm vascular markings and edema. Nevertheless, the patient remains on room air oxygen. The white cell count is at 9.1 with a hemoglobin of 8.7. BUN is at 39 with a creatinine of 2.8 and sodium levels at 132. Urine output is quite diminished at this point in time. Patient is being seen by nephrology and cardiothoracic surgery. No chest pain. He is on room air oxygen. He remains on metoprolol 12.5 mg p.o. twice a day. He remains on midodrine. He remains on Levemir insulin. Remains on aspirin and Plavix. On today's evaluation on 09/21/2023, the patient is doing well. He has no specific complaints. He is postop day #19 following three-vessel bypass surgery. He also sustained an acute kidney injury. He is sitting up in a chair and is currently on room air oxygen. Undergoing hemodialysis 3 times a week M [facility]. He is awaiting insurance verification authorization for subacute rehabilitation. No other major concerns for now. The blood counts at 7.6 with a hemoglobin 8.5, BUN is 28 with a creatinine of 2.5 and a sodium levels at 133. The patient is afebrile. The patient is hemodynamically stable. The patient remains oliguric. Noted his baseline creatinine was at 1.0. No dialysis will be done over the weekend and next dialysis is probably on Saturday. Remains on Aranesp. Remains on IV iron. On 09/22/2023, no new complaints. Patient is on room air oxygen with a pulse ox of 95%. Hemodynamically stable. The blood work from today shows a WBC of 7.8 with a hemoglobin 8.4, BUN 37 with a creatinine of 3.11 and a sodium levels at 134. Using incentive spirometer. Using the [place] for mobility. Medication unchanged. The patient remains on aspirin and Plavix. The patient remains on metoprolol 12.5 mg twice daily patient is also on midodrine 5 mg p.o. 3 times daily. The patient is on statin with Lipitor 40 mg p.o. daily. The patient is also receiving IV iron. He is on Levemir insulin 15 units along with that he is on sliding scale insulin coverage. No other significant events overnight. Cardiac rhythm remained sinus. Objective - Vital Signs Vital signs: Vital Signs Temp 97.4 F L 09/22/23 08:00 Pulse 77 09/22/23 08:00 Resp 14 09/22/23 08:00 BP 117/63 09/22/23 08:00 Pulse Ox 96 09/22/23 08:00 FiO2 40 09/02/23 20:33 Intake & Output 09/21/23 09/22/23 09/22/23 18:59 06:59 18:59 Intake Total 700 Output Total 43 25 Balance 657 -25 Weight 88.2 kg Intake: IV 150 Sodium Ferric Gluconat- 100 Sucrose 125 mg In Sodium Chloride 0.9% 100 ml @ 100 mls/hr IVPB DAILY [facility] Rx#:[id number] cefTRIAXone 2 gm In 50 Sodium Chloride 0.9% 50 ml @ 100 mls/hr IVPB Q24HR [facility] Rx#:[id number] Oral 550 Output: Urine 43 25 Other: Voiding Method Indwelling Catheter Indwelling Catheter # Bowel Movements 1 ABP, PAP, CO, CI - Last Documented Arterial Blood Pressure 83/58 Pulmonary Artery Pressure 45/17 Cardiac Output 3.5 Cardiac Index 2 - Exam CONSTITUTIONAL: Sitting up to the bedside chair in the intensive care unit, appears comfortable, cooperative, no apparent acute distress. HEENT: Neck is supple, no JVD, no lymphadenopathy. RESPIRATORY: Lungs sounds essentially clear throughout, diminished to his b ilateral bases. Respirations are symmetrical and nonlabored. Currently on room air with oxygen saturations 97%. Able to achieve 500 mL on his incentive spirometry with encouragement and instruction. Weak cough. CARDIOVASCULAR: Regular rhythm and rate. S1 and S2 present, negative for S3, gallop or murmur. Bedside telemetry showing normal sinus rhythm heart rate 74 bpm. Sternum is stable. Palpable peripheral pulses bilaterally, +1 edema generalized. No calf pain or tenderness noted. Heart hugger in place with patient demonstrating appropriate use with much encouragement. Knee-high VARUN hose and sequential compression devices in place to his bilateral lower extremities. GASTROINTESTINAL: Abdomen soft, nontender, nondistended. Active bowel sounds present 4 quadrants. Tolerating diet. Passing flatus. No guarding or rigidity. Bowel movement 09/17/2023. GENITOURINARY: Hemodialysis September 18, 2023 with 2000 mL of ultrafiltration completed. Hobson catheter in place for urine retention, urine output in the last 8 hours is 85 mL. INTEGUMENTARY: Skin is warm and dry with no evidence of clubbing or cyanosis. Midline sternal incision clean dry and well approximated, covered with dry intact dressing. Bilateral lower extremity EVH sites well approximated without redness or drainage. Erythema to his coccyx, dressing clean, dry and intact. NEUROLOGIC: Cranial nerves II through XII intact. MUSKULOSKELETAL: Able to move all extremities, strength equal bilaterally, generalized weakness. PSYCHIATRIC: Alert and oriented to person place and disoriented to time, appropriate affect. - Labs CBC & Chem 7: 09/22/23 04:18 09/22/23 04:18 Labs: Abnormal Lab Results - Last 24 Hours (Table) 09/21/23 09/21/23 09/22/23 Range/Units 11:19 16:22 04:18 RBC 2.63 L (4.30-5.90) m/uL Hgb 8.4 L (13.0-17.5) gm/dL Hct 26.4 L (39.0-53.0) % MCV 100.2 H (80.0-100.0) fL RDW 16.6 H (11.5-15.5) % Sodium (137-145) mmol/L BUN (9-20) mg/dL Creatinine (0.66-1.25) mg/dL Glucose (74-99) mg/dL POC Glucose (mg/dL) 139 H 188 H (70-110) mg/dL Calcium (8.4-10.2) mg/dL 09/22/23 Range/Units 04:18 RBC (4.30-5.90) m/uL Hgb (13.0-17.5) gm/dL Hct (39.0-53.0) % MCV (80.0-100.0) fL RDW (11.5-15.5) % Sodium 134 L (137-145) mmol/L BUN 37 H (9-20) mg/dL Creatinine 3.11 H (0.66-1.25) mg/dL Glucose 130 H (74-99) mg/dL POC Glucose (mg/dL) (70-110) mg/dL Calcium 8.3 L (8.4-10.2) mg/dL Assessment and Plan Plan: Multivessel coronary artery disease and the patient is S/P three-vessel bypass grafting. Patient is postop day # 20 Postthoracotomy and the surgical wound is clean and the patient's chest rhythm removed. Small bilateral pleural effusions on follow-up chest x-ray. The patient is undergoing hemodialysis this morning. Chest x-ray findings remains essentially unchanged. Anticipate improvement of pleural effusion with recurrent hemodialysis and ultrafiltration. Chronic systolic CHF, with an ejection fraction of 30 to 35%. The patient is currently on aspirin, Plavix, and the patient is also on metoprolol 12.5 mg p.o. twice a day. Cardiogenic shock and severe LV dysfunction, recovered Acute kidney injury, requiring hemodialysis and the patient is status post permacath catheter insertion last dialysis the patient undergoing periodic hemodialysis. Last hemodialysis session was done yesterday. None for today. The patient remains oliguric. E. coli/gram-negative bacillary urinary tract infection. Patient has a Hobson catheter in place and the patient is on IV Rocephin, white cell count is improved Leukocytosis, improving Peripheral vascular disease. Type 2 diabetes mellitus. Essential hypertension. Hyperlipidemia. History of developmental delay. Bipolar disorder. Chronic anxiety. Prior history of tobacco use. Plan: Clinically stable without any change in his overall condition over the past 48 hours. Increase mobility The patient will continue aggressive pulmonary toileting and using the incentive spirometer on daily basis. No hemodialysis to be done over the weekend, he gets dialyzed 3 times a week and next dialysis will be on Saturday. Respiratory status is stable and the patient is currently on room air oxygen. Continue metoprolol 12.5 mg twice a day Continue aspirin and Plavix Avoid nephrotoxic agents Hobson catheter will be kept in place pending urology consultation C complete the course of IV Rocephin regarding urine tract infection. Hemodialysis per nephrology Continue midodrine 5 mg p.o. 3 times daily Oral bicarb supplements Continue statins Will continue to follow, awaiting authorization for subacute rehabilitation.
--- NOTE | 2023-09-22 10:02 | P.PN ---
Subjective Patient is seen in follow-up for acute kidney injury, currently hemodialysis dependent. Permacath placed September 16, 2023. Denies chest pain or shortness of breath. Oral intake fair. Remains oliguric. Vital signs are stable. General: No acute distress. HEENT: Head exam is unremarkable. LUNGS: No audible rhonchi or wheezes. HEART: Rate and Rhythm are regular. ABDOMEN: Nontender. EXTREMITITES: 1+ edema. Objective - Vital Signs Vital signs: Vital Signs Temp 97.4 F L 09/22/23 08:00 Pulse 77 09/22/23 08:00 Resp 14 09/22/23 08:00 BP 117/63 09/22/23 08:00 Pulse Ox 96 09/22/23 08:00 FiO2 40 09/02/23 20:33 Intake & Output 09/21/23 09/22/23 09/22/23 18:59 06:59 18:59 Intake Total 700 Output Total 43 25 Balance 657 -25 Weight 88.2 kg Intake: IV 150 Sodium Ferric Gluconat- 100 Sucrose 125 mg In Sodium Chloride 0.9% 100 ml @ 100 mls/hr IVPB DAILY [facility] Rx#:[id number] cefTRIAXone 2 gm In 50 Sodium Chloride 0.9% 50 ml @ 100 mls/hr IVPB Q24HR [facility] Rx#:[id number] Oral 550 Output: Urine 43 25 Other: Voiding Method Indwelling Catheter Indwelling Catheter Indwelling Catheter # Bowel Movements 1 ABP, PAP, CO, CI - Last Documented Arterial Blood Pressure 83/58 Pulmonary Artery Pressure 45/17 Cardiac Output 3.5 Cardiac Index 2 - Labs CBC & Chem 7: 09/22/23 04:18 09/22/23 04:18 Labs: Abnormal Lab Results - Last 24 Hours (Table) 09/21/23 09/21/23 09/22/23 Range/Units 11:19 16:22 04:18 RBC 2.63 L (4.30-5.90) m/uL Hgb 8.4 L (13.0-17.5) gm/dL Hct 26.4 L (39.0-53.0) % MCV 100.2 H (80.0-100.0) fL RDW 16.6 H (11.5-15.5) % Sodium (137-145) mmol/L BUN (9-20) mg/dL Creatinine (0.66-1.25) mg/dL Glucose (74-99) mg/dL POC Glucose (mg/dL) 139 H 188 H (70-110) mg/dL Calcium (8.4-10.2) mg/dL 09/22/23 Range/Units 04:18 RBC (4.30-5.90) m/uL Hgb (13.0-17.5) gm/dL Hct (39.0-53.0) % MCV (80.0-100.0) fL RDW (11.5-15.5) % Sodium 134 L (137-145) mmol/L BUN 37 H (9-20) mg/dL Creatinine 3.11 H (0.66-1.25) mg/dL Glucose 130 H (74-99) mg/dL POC Glucose (mg/dL) (70-110) mg/dL Calcium 8.3 L (8.4-10.2) mg/dL Assessment and Plan Plan: Assessment: 1. Acute kidney injury secondary to ATN secondary to hypotension/cardiogenic shock. Baseline creatinine near 1. Started on hemodialysis September 09, 2023. Permacath placed September 16, 2023. Oliguric. 2. Coronary artery disease status post CABG x 3 September 02, 2023. 3. Shock now off vasopressors. 4. Cardiomyopathy with reduced ejection fraction. 5. Metabolic acidosis secondary to acute kidney injury. Improved postdialysis. Also on oral bicarb. 6. Urinary retention. Status post bladder irrigation and Hobson catheter placement. Urology following. 7. Bleeding from the access site. Status post IV DDAVP and stitch placement. Now resolved. 8. Hyponatremia secondary to acute kidney injury. Hypervolemic. Improved postdialysis. 9. Anemia. Iron deficiency noted. Receiving IV iron. Also on Aranesp. Plan: Hemodialysis Saturday. Encouraged oral intake. Monitor for renal recovery outpatient. Phosphorus level 3.9 dated September 18, 2023. DC Hobson catheter if okay with urology.
[2023-09-22 11:13] LABS: Glucose,Whole Blood 91 mg/dL (70-110)
--- NOTE | 2023-09-22 16:07 | XR ---
EXAM: XR chest 1V portable CLINICAL INDICATION:Male, 63 years old with history of post cardiac surgery; [facility] COMPARISON: 09/22/2023 and 09/21/2023 TECHNIQUE: Chest single view. FINDINGS: Lines/tubes/devices: Right-sided dialysis catheter unchanged with its tip over the cavoatrial junctio n. EKG leads over the [id number]. Sternotomy wires. Left atrial appendage occlusion device. Cardiomediastinum: Cardiac silhouette appears enlarged, stable Stable mediastinal silhouette. Vasculature: Similar congestive changes and increased interstitial markings. Lungs/pleura: Hazy opacities over the lungs likely edema and/or layering fluid. Similar bibasilar pleural/parenchym al opacities suggesting pleural effusions with atelectasis/airspace disease. No visualized pneumothor ax. An edge projects over the left upper chest. Bones/soft tissues: Bony thorax appears grossly intact as seen. Mild degenerative changes. Regional soft tissues appear u nremarkable. IMPRESSION: 1. Cardiomegaly and postoperative changes. 2. Overall similar lung findings suggesting CHF/fluid overload.
[2023-09-22 16:08] LABS: Glucose,Whole Blood 128 mg/dL (70-110)
[2023-09-22 19:47] LABS: Glucose,Whole Blood 138 mg/dL (70-110)
[2023-09-23 06:25] LABS: Anisocytosis Slight; HCT 28.4 % (39.0-53.0); HGB 8.6 gm/dL (13.0-17.5); Hypochromasia Marked; MCH 30.5 pg (25.0-35.0); MCHC 30.2 g/dL (31.0-37.0); MCV 100.8 fL (80.0-100.0); Macrocytosis Slight; Mean Platelet Volume 7.9; Platelet Count 215 k/uL (150-450); RBC 2.82 m/uL (4.30-5.90); RDW 16.2 % (11.5-15.5); WBC 7.8 k/uL (3.8-10.6)
[2023-09-23 06:34] LABS: Glucose,Whole Blood 69 mg/dL (70-110)
[2023-09-23 06:41] LABS: African American GFR (CKD) 18 (>60 ml/min/1.73 sqM); Anion Gap 10 mmol/L; Blood Urea Nitrogen 44 mg/dL (9-20); Calcium 8.4 mg/dL (8.4-10.2); Carbon Dioxide 26 mmol/L (22-30); Chloride 98 mmol/L (98-107); Glucose 73 mg/dL (74-99); Non-African American GFR(CKD) 15 (>60 ml/min/1.73 sqM); Potassium 4.2 mmol/L (3.5-5.1); Sodium 134 mmol/L (137-145)
[2023-09-23 07:14] LABS: Glucose,Whole Blood 76 mg/dL (70-110)
--- NOTE | 2023-09-23 08:05 | P.PN ---
Subjective Progress Note Date: 09/23/23 Principal diagnosis: Triple-vessel coronary artery disease with left main disease. Previous medical history of hypertension, hyperlipidemia, diabetes mellitus, chronic systolic he art failure with reduced ejection fraction/ischemic cardiomyopathy, bipolar disorder, obesity, peripheral vascular disease, developmental delay, previous tobacco dependence, noncompliance POD #22 right heart catheterization, ultrasound guided access, placement of intra-aortic balloon pump from right femoral access performed by Dr. Monreal. POD #21 on pump coronary artery bypass grafting x 3, left internal thoracic artery (in-situ) sequential to diagonal and left anterior descending coronary a rtery, right greater saphenous vein from aorta to obtuse marginal artery #1, left atrial appendage ligation with #35mm AtriClip, endoscopic bilateral greater saphenous vein harvest, graft flow measurements using the [employer]-stim flow meter system, trans-esophageal echo Postoperative acute blood loss anemia and thrombocytopenia, expected given hemodilution and cardiopulmonary bypass LEONARDO, status post placement of temp dialysis cath by Dr. Adkins, status post permacath by Dr. Weller Elevated transaminases, likely due to hypoperfusion, trending down Cardiogenic shock, resolved E. coli UTI, treated The patient was seen and examined with Dr. Weller sitting up in recliner this morning in no acute distress eating breakfast. Currently in sinus rhythm, blood pressure stable. Currently on room air with oxygen saturation in the high 90s. Continues to receive dialysis on Saturday, Saturday, Saturday schedule. Patient is in good spirits and improving daily. Chest x-ray, labs reviewed. Transfer o rders placed for 3 S. cardiac stepdown unit, no bed availability, patient remains in the intensive care unit as a 3 S. overflow. Awaiting insurance authorization for [facility]. No other new concerns. Objective - Vital Signs Vital signs: Vital Signs Temp 98 F 09/23/23 04:00 Pulse 78 09/23/23 04:00 Resp 15 09/23/23 04:00 BP 114/62 09/23/23 04:00 Pulse Ox 96 09/23/23 00:00 FiO2 40 09/02/23 20:33 Intake & Output 09/22/23 09/23/23 09/23/23 18:59 06:59 18:59 Intake Total 400 240 Output Total 5 0 Balance 395 240 Weight 90 kg Intake: IV 100 Sodium Ferric Gluconat- 100 Sucrose 125 mg In Sodium Chloride 0.9% 100 ml @ 100 mls/hr IVPB DAILY [facility] Rx#:[id number] Oral 300 240 Output: Urine 5 0 Other: Voiding Method Indwelling Catheter ABP, PAP, CO, CI - Last Documented Arterial Blood Pressure 83/58 Pulmonary Artery Pressure 45/17 Cardiac Output 3.5 Cardiac Index 2 - Exam CONSTITUTIONAL: Appears comfortable, no acute distress RESPIRATORY: Lungs sounds diminished bilaterally. Respirations even, nonlabored. Currently on room air with oxygen saturation 96%. Only able to achieve 500 mL on incentive spirometry CARDIOVASCULAR: S1, S2 present. Regular rate and rhythm, sinus rhythm on telemetry. Sternum stable. Palpable peripheral pulses bilaterally. Trace generalized edema present. No calf pain or tenderness noted. Heart hugger, antiembolism stockings, SCDs present. GASTROINTESTINAL: Abdomen soft, nontender, nondistended. Active bowel sounds present 4 quadrants. Tolerating minimal diet. Positive bowel movement 09/20 GENITOURINARY: Hobson discontinued, minimal output 5 mL in the last 24 hours. Right subclavian permacath present INTEGUMENTARY: Skin is warm and dry. Anterior chest incision well approximated. Bilateral lower extremity EVH sites well approximated without redness or drainage. NEUROLOGIC: Cranial nerves II through XII intact MUSKULOSKELETAL: Able to move all extremities, strength equal bilaterally, generalized weakness present PSYCHIATRIC: Alert and oriented - Allied health notes Allied health notes reviewed: nursing - Labs CBC & Chem 7: 09/23/23 05:20 09/23/23 05:20 Labs: Abnormal Lab Results - Last 24 Hours (Table) 09/22/23 09/22/23 09/23/23 Range/Units 16:06 19:46 05:20 RBC 2.82 L (4.30-5.90) m/uL Hgb 8.6 L (13.0-17.5) gm/dL Hct 28.4 L (39.0-53.0) % MCV 100.8 H (80.0-100.0) fL MCHC 30.2 L (31.0-37.0) g/dL RDW 16.2 H (11.5-15.5) % Sodium (137-145) mmol/L BUN (9-20) mg/dL Creatinine (0.66-1.25) mg/dL Glucose (74-99) mg/dL POC Glucose (mg/dL) 128 H 138 H (70-110) mg/dL 09/23/23 09/23/23 Range/Units 05:20 06:33 RBC (4.30-5.90) m/uL Hgb (13.0-17.5) gm/dL Hct (39.0-53.0) % MCV (80.0-100.0) fL MCHC (31.0-37.0) g/dL RDW (11.5-15.5) % Sodium 134 L (137-145) mmol/L BUN 44 H (9-20) mg/dL Creatinine 3.98 H (0.66-1.25) mg/dL Glucose 73 L (74-99) mg/dL POC Glucose (mg/dL) 69 L (70-110) mg/dL - Imaging and Cardiology Chest x-ray: image reviewed Assessment and Plan Assessment: Triple-vessel coronary artery disease with left main disease, status post three- vessel on pump CABG History of hypertension Hyperlipidemia, treated, cholesterol 135, LDL 60, triglycerides 178 Diabetes mellitus, preoperative hemoglobin A1c 7.4% Chronic systolic heart failure with reduced ejection fraction/ischemic cardiomyopathy, EF 30-35%, preoperative placement of intra-aortic balloon pump Bipolar disorder Obesity Peripheral vascular disease, right FAIZAN 0.95, left FAIZAN 0.97 Developmental delay Previous tobacco dependence Moderate COPD, preoperative FEV1 55% of predicted Noncompliance Postoperative acute blood loss anemia and thrombocytopenia, expected Incidental finding of tiny left pneumothorax, not a complication, resolved LEONARDO, status post dialysis cath placement Elevated transaminases, cardiogenic shock, likely from hypoperfusion, resolved Medical debility E. coli UTI Plan: Continue aspirin, statin, Plavix and beta-feliberto with hold parameters Continue midodrine Encourage use of incentive spirometry 10 times every hour while awake. Bronchodilators per pulmonology Increase activity, ambulate as tolerated. PT/OT/cardiac rehab following Will monitor daily labs and chest x-rays Dialysis per nephrology, dialysis Saturday, Saturday, Saturday Avoid nephrotoxins Pain control per current medication regimen. Avoid to Toradol. No narcotics Continue to record strict accurate intake and output Insulin management per internal medicine GI/DVT prophylaxis Daily weights Encourage oral intake, supplements ordered Patient needs continued encouragement to participate in his care Patient will need rehab at discharge, peer to peer unsuccessful for LTAC, will await insurance authorization for [facility]. Patient may be discharged to rehab once insurance auth obtained Transfer orders placed for 3 S. cardiac stepdown unit, may transfer when bed available More recommendations to follow based on patient's clinical course.
--- NOTE | 2023-09-23 08:14 | XR ---
EXAMINATION TYPE: XR chest 1V portable DATE OF EXAM: 09/23/2023 5:03 AM CLINICAL INDICATION:Male, 63 years old with history of post cardiac surgery; [facility] COMPARISON: Chest radiographs from 09/22/2023. TECHNIQUE: XR chest 1V portable Frontal view of the chest. FINDINGS: Lungs/Pleura: Increasing right pleural effusion. No left pleural effusion. No pneumothorax. Pulmonary vascularity: Pulmonary vascular congestion. Heart/mediastinum: Cardiomediastinal silhouette is enlarged and stable. Left atrial appendage occlusi on device is present. Musculoskeletal: No acute osseous pathology. Other findings: None Lines/Tubes: Right central venous catheter with distal tip at the cavoatrial junction. Right central venous catheter with distal tip at the cavoatrial junction. IMPRESSION: 1. Cardiac surgery with mild pulmonary vascular congestion. Right support catheter in appropriate an d stable position. 2. Mildly increase in right pleural effusion.
--- NOTE | 2023-09-23 11:14 | P.PN ---
Subjective patient is seen for follow-up for acute kidney injury, oliguric hemodynamic ATN. Status post coronary artery bypass surgery on 09/02/2023 Started on hemodialysis on 09/09/2023 for severe progressive hemodynamic ATN. Patient remains oliguric. seen on hemodialysis today. Patient is awake and comfortable. Tolerating treatment well. Goal UF about 2- 2.3 L. Objective - Vital Signs Vital signs: Vital Signs Temp 98.1 F 09/23/23 08:00 Pulse 79 09/23/23 08:00 Resp 17 09/23/23 08:00 BP 106/61 09/23/23 08:00 Pulse Ox 96 09/23/23 00:00 FiO2 40 09/02/23 20:33 Intake & Output 09/22/23 09/23/23 09/23/23 18:59 06:59 18:59 Intake Total 400 240 Output Total 5 0 Balance 395 240 Weight 90 kg Intake: IV 100 Sodium Ferric Gluconat- 100 Sucrose 125 mg In Sodium Chloride 0.9% 100 ml @ 100 mls/hr IVPB DAILY [facility] Rx#:[id number] Oral 300 240 Output: Urine 5 0 Other: Voiding Method Indwelling Catheter ABP, PAP, CO, CI - Last Documented Arterial Blood Pressure 83/58 Pulmonary Artery Pressure 45/17 Cardiac Output 3.5 Cardiac Index 2 - Exam patient is awake, comfortable. No acute distress Examination of the heart S1 and S2 Examination of the lungs decreased breath sounds at the bases Abdomen is soft Examination of lower extremities shows 1+ edema - Labs CBC & Chem 7: 09/23/23 05:20 09/23/23 05:20 Labs: Abnormal Lab Results - Last 24 Hours (Table) 09/22/23 09/22/23 09/23/23 Range/Units 16:06 19:46 05:20 RBC 2.82 L (4.30-5.90) m/uL Hgb 8.6 L (13.0-17.5) gm/dL Hct 28.4 L (39.0-53.0) % MCV 100.8 H (80.0-100.0) fL MCHC 30.2 L (31.0-37.0) g/dL RDW 16.2 H (11.5-15.5) % Sodium (137-145) mmol/L BUN (9-20) mg/dL Creatinine (0.66-1.25) mg/dL Glucose (74-99) mg/dL POC Glucose (mg/dL) 128 H 138 H (70-110) mg/dL 09/23/23 09/23/23 Range/Units 05:20 06:33 RBC (4.30-5.90) m/uL Hgb (13.0-17.5) gm/dL Hct (39.0-53.0) % MCV (80.0-100.0) fL MCHC (31.0-37.0) g/dL RDW (11.5-15.5) % Sodium 134 L (137-145) mmol/L BUN 44 H (9-20) mg/dL Creatinine 3.98 H (0.66-1.25) mg/dL Glucose 73 L (74-99) mg/dL POC Glucose (mg/dL) 69 L (70-110) mg/dL Assessment and Plan Assessment: 1. Acute kidney injury secondary to ATN secondary to hypotension/cardiogenic shock. Baseline creatinine near 1. Oliguric. UA fairly benign. Started renal replacement therapy on 09/09/2023. patient remains hemodialysis dependent. 2. Coronary artery disease status post CABG x 3 September 02, 2023. 3. Shock, status post vasopressors 4. Cardiomyopathy with reduced ejection fraction. EF 25-20% 5. Metabolic acidosis secondary to acute kidney injury. improved 6. Urine retention status post bladder irrigation and Hobson catheter placement. 7. Anemia, multifactorial. Status post IV iron and maintained on Aranesp Plan: patient will continue with hemodialysis as outpatient. continue midodrine. DC sodium bicarb
[2023-09-23 11:42] LABS: Glucose,Whole Blood 70 mg/dL (70-110)
--- NOTE | 2023-09-23 12:20 | P.PN ---
Subjective Progress Note Date: 09/23/23 Principal diagnosis: POD # 21 off-pump coronary artery bypass grafting surgery x 3, left internal thoracic artery (in-situ) sequential to diagonal and left anterior descending coronary artery, right greater saphenous vein from aorta to obtuse marginal artery 1 63-year-old male patient, was brought into the intensive care unit after having an antibiotic balloon pump inserted this morning and this was done in preparation for coronary artery bypass surgery. The patient is known to have CAD, chronic CHF with impaired ejection fraction of 30 to 35%. The patient has been hospitalized with [facility] and an earlier cardiac catheterization from April 2023 showed a 70% left main, 70% proximal LAD, 30% circumflex and 70% obtuse marginal 1 and 60% mid RCA. The patient has impaired LV function with an EF around 30 to 35% along with mild to moderate MR, and severe pulm hypertension. The patient is scheduled to undergo coronary artery bypass surgery tomorrow. He is currently on room air oxygen. Free of any chest pain. Hemodynamically stable. Augmented blood pressure is around 80. He has some developmental delay and his other comorbid conditions include diabetes mellitus type 2, hypertension and hyperlipidemia. Blood work shows a white cell count of 9, hemoglobin 11.8, platelet count of 206, normal coagulation profile, BUN of 27 with a creatinine of 1 and sodium levels at 138. LFTs are normal. His CAT scan of the chest that was done on 07/16/2023 showed cardiomegaly with small right and left-sided pleural effusion. This is consistent with CHF. No mediastinal lymphadenopathy. On 09/20/2023, the patient is being seen for a follow-up. The patient is essentially the same undergoing hemodialysis today. Chest x-ray findings are unchanged compared to yesterday. The patient remains in normal sinus rhythm. The chest x-ray is showing CHF with increased pulm vascular markings and edema. Nevertheless, the patient remains on room air oxygen. The white cell count is at 9.1 with a hemoglobin of 8.7. BUN is at 39 with a creatinine of 2.8 and sodium levels at 132. Urine output is quite diminished at this point in time. Patient is being seen by nephrology and cardiothoracic surgery. No chest pain. He is on room air oxygen. He remains on metoprolol 12.5 mg p.o. twice a day. He remains on midodrine. He remains on Levemir insulin. Remains on aspirin and Plavix. On today's evaluation on 09/21/2023, the patient is doing well. He has no specific complaints. He is postop day #19 following three-vessel bypass surgery. He also sustained an acute kidney injury. He is sitting up in a chair and is currently on room air oxygen. Undergoing hemodialysis 3 times a week MWF. He is awaiting insurance verification authorization for subacute rehabilitation. No other major concerns for now. The blood counts at 7.6 with a hemoglobin 8.5, BUN is 28 with a creatinine of 2.5 and a sodium levels at 133. The patient is afebrile. The patient is hemodynamically stable. The patient remains oliguric. Noted his baseline creatinine was at 1.0. No dialysis will be done over the weekend and next dialysis is probably on Saturday. Remains on Aranesp. Remains on IV iron. On 09/22/2023, no new complaints. Patient is on room air oxygen with a pulse ox of 95%. Hemodynamically stable. The blood work from today shows a WBC of 7.8 w ith a hemoglobin 8.4, BUN 37 with a creatinine of 3.11 and a sodium levels at 134. Using incentive spirometer. Using the TruQu for mobility. Medication unchanged. The patient remains on aspirin and Plavix. The patient remains on metoprolol 12.5 mg twice daily patient is also on midodrine 5 mg p.o. 3 times daily. The patient is on statin with Lipitor 40 mg p.o. daily. The patient is also receiving IV iron. He is on Levemir insulin 15 units along with that he is on sliding scale insulin coverage. No other significant events overnight. Cardiac rhythm remained sinus. Patient was evaluated on 09/23/2023, remains in the ICU, presently undergoing hemodialysis, and the plan is to remove at least 2 L of fluids. Patient is in bed, comfortable, does not seem to be in distress, workup for possible placement in ECF is pending. Chest x-ray continues to show congestive heart failure and small right-sided pleural effusion. WBC count today is 7.8 hemoglobin 8.6. Basic metabolic profile is normal BUN is 44 creatinine 3.98. Patient is still receiving hemodialysis, Objective - Vital Signs Vital signs: Vital Signs Temp 98.1 F 09/23/23 08:00 Pulse 79 04/15/24 08:00 Resp 17 09/23/23 08:00 BP 106/61 09/23/23 08:00 Pulse Ox 96 09/23/23 00:00 FiO2 40 09/02/23 20:33 Intake & Output 09/22/23 09/23/23 09/23/23 18:59 06:59 18:59 Intake Total 400 240 Output Total 5 0 Balance 395 240 Weight 90 kg Intake: IV 100 Sodium Ferric Gluconat- 100 Sucrose 125 mg In Sodium Chloride 0.9% 100 ml @ 100 mls/hr IVPB DAILY [facility] Rx#:[id number] Oral 300 240 Output: Urine 5 0 Other: Voiding Method Indwelling Catheter ABP, PAP, CO, CI - Last Documented Arterial Blood Pressure 83/58 Pulmonary Artery Pressure 45/17 Cardiac Output 3.5 Cardiac Index 2 - Exam GENERAL EXAM: Reveals 63-year-old white male on room air. HEAD: Normocephalic. EYES: PERRLA, EOMI. NOSE: Clear with pink turbinates. THROAT: No erythema or exudates. NECK: No masses, no JVD. Left IJ Killdeer-Isabell catheter in place. CHEST: Sternal dressing dry and intact. Heart hugger in place. LUNGS: Diminished breath sound bilaterally no rhonchi no wheezes CVS: S1 and S2 normal with no audible murmur, regular rhythm. ABDOMEN: No hepatosplenomegaly, diminished bowel sounds, no guarding or rig idity. SKIN: No rashes CENTRAL NERVOUS SYSTEM: Alert and oriented x 3 no gross focal deficits EXTREMITIES: no clubbing trace of bipedal edema, no cyanosis. - Labs CBC & Chem 7: 09/23/23 05:20 09/23/23 05:20 Labs: Abnormal Lab Results - Last 24 Hours (Table) 09/22/23 09/22/23 09/23/23 Range/Units 16:06 19:46 05:20 RBC 2.82 L (4.30-5.90) m/uL Hgb 8.6 L (13.0-17.5) gm/dL Hct 28.4 L (39.0-53.0) % MCV 100.8 H (80.0-100.0) fL MCHC 30.2 L (31.0-37.0) g/dL RDW 16.2 H (11.5-15.5) % Sodium (137-145) mmol/L BUN (9-20) mg/dL Creatinine (0.66-1.25) mg/dL Glucose (74-99) mg/dL POC Glucose (mg/dL) 128 H 138 H (70-110) mg/dL 09/23/23 09/23/23 Range/Units 05:20 06:33 RBC (4.30-5.90) m/uL Hgb (13.0-17.5) gm/dL Hct (39.0-53.0) % MCV (80.0-100.0) fL MCHC (31.0-37.0) g/dL RDW (11.5-15.5) % Sodium 134 L (137-145) mmol/L BUN 44 H (9-20) mg/dL Creatinine 3.98 H (0.66-1.25) mg/dL Glucose 73 L (74-99) mg/dL POC Glucose (mg/dL) 69 L (70-110) mg/dL Assessment and Plan Assessment: Impression: Symptomatic multivessel coronary artery disease, Status post on pump coronary artery bypass grafting x 3. Left internal thoracic artery sequential to diagonal and LAD. Right SVG from aorta to obtuse marginal artery #1. Postoperative day #21 Chronic systolic heart failure with impaired ejection fraction of 30 to 35% patient is not requiring presently any pressors or any inotropes. cardiogenic shock and severe LV dysfunction Peripheral vascular disease Diabetes mellitus type 2 with an HbA1c of 10.9 Hypertension Hyperlipidemia History of developmental delay Bipolar disorder Chronic anxiety History of smoking quit more than 20 years ago Left apical pneumothorax, resolved Acute renal failure possibly cardiorenal, patient has been requiring hemodialysis while in the hospital Severe cardiomyopathy Recommendations: Continue hemodialysis Placement in ECF is in progress Continue Plavix beta-blockers aspirin and statin Daily x-rays of the chest Daily labs Incentive spirometry Patient remains unmotivated Patient continues to have overall poor prognosis Continue Rocephin for UTI Continue midodrine for low blood pressure Continue oral bicarb supplement Will continue to follow Time with Patient: Less than 30
--- NOTE | 2023-09-23 13:42 | P.PN ---
Subjective Progress Note Date: 09/23/23 63-year-old gentleman with past medical history significant for coronary artery disease, chronic congestive heart failure with ejection fraction of 30%, hypertension hyperlipidemia diabetes mellitus obesity bipolar disorder cardiomyopathy developmental delay history of nicotine dependence who has been admitted with shortness of breath and lower extremity edema. Patient underwent cardiac catheterization right heart catheterization and intra-aortic balloon pump. * Patient has comorbidities including diabetes mellitus type 2, peripheral arterial disease, bipolar disorder, history of anxiety. * Patient to undergo myocardial revascularization 09/02/2023. * 09/03/23 : Patient admitted to medical ICU. Patient was successfully extubated postprocedure. S/p intra-aortic balloon pump which remains in place through right femoral access. Patient remains on norepinephrine drip, Primacor drip, vasopressin. Bilateral chest tubes remained in place. Followed up by medical ICU and cardiac surgery. Follow-up blood work obtained including WBC 15.2 hemoglobin 9.2 platelet count of 98, serum chemistry sodium 141 potassium 4.7 carbon dioxide 24 BUN 26 creatinine 1.1 blood glucose 118-1 33 * 09/04/23: Patient seen and evaluated in medical ICU room 266, patient continues to remain on Levophed, vasopressin and pressor support. Blood work reviewed WBC 17.7 hemoglobin 9.4 platelet 117. Serum chemistry showed sodium 137 potassium 4.9 carbon dioxide 18 BUN 34 creatinine 1.52 blood glucose 123. Overnight patient was refusing to participate with care, patient counseled by cardiac surgery team as well. Brother at bedside, patient does follow commands, care plan discussed with nursing staff * 09/05/23: Patient seen and evaluated bedside, vitals reviewed blood pressure running in the 90s overnight. Patient remains on 2 L of oxygen. Blood work reviewed CBC shows WBC 14.3 hemoglobin 9.3 platelet 105 serum chemistry sodium 137 potassium 5.2 carbon dioxide 16 BUN 44 creatinine 1.99 total bilirubin 1.3 AST 464 ALT 128 will need to be monitored, p.atient remains lethargic however easily arousable 09/06/2023 -- Patient is seen and evaluated in ICU at bedside Vital signs reviewed and temperature of 97.9, pulse 90, respiration 14 and blood pressure of 110/40 Lab review shows WBC 14.2, hemoglobin of 8.7 and platelet count of 109, sodium 136, potassium 4.8, BUNs/creatinine of 54/2.91; concern about worsening renal function likely related to cardiorenal syndrome; dopamine has been discontinued Chest x-ray reveals atelectasis and bibasilar pleural effusion --Patient remains on pressors and inotropic agents; cardiac index and cardiac output is being monitored closely -Patient remains on Plavix, aspirin, statins and beta-blockers -- Recommended to increase activity 09/07/2023 ---patient is basically about the same, he is now postoperative day #5, sitting at the bedside chair, patient is not motivated what bit remains on multiple inotropes and pressors, patient is receiving dopamine at 2.5 mcg/kg/min dobutamine at 5 mcg/kg/min norepinephrine at 0.06 mcg/kg/min vasopressin at 0.03 units/min and he is also on insulin at 3.5 units/h today he is off milrinone. Chest x-ray showed mostly atelectasis at the bases. No clear-cut evidence of pulmonary edema. Patient is maintained on 2 L nasal cannula, again the patient is doing extremely poorly with incentive spirometry and does not seem to be mot ivated at all. Renal functioning seems to be getting worse, his BUN is 63 creatinine 3.54, at this rate I am quite concerned with the patient may end up requiring hemodialysis. This is being addressed by nephrology on the case. Liver enzymes are improving Continue pressors and inotropes continue to monitor cardiac index and cardiac output Continue dopamine, continue dobutamine, patient is off milrinone today. However he is still requiring norepinephrine and vasopressin Continue Plavix beta-blockers aspirin and statin Titrate pressors and inotropes as tolerated 09/08/2023 --patient is seen and evaluated with family at bedside; now postoperative day #6. -- Patient is still requiring dobutamine at 0.5 mcg/kg/min, still requiring vasopressin at 0.02 units/min, his norepinephrine is presently on hold, and milrinone was discontinued. Still on insulin at 3 units/h. -- chest x-ray is showing bibasilar atelectasis and small left pleural effusion with a small right pleural effusion -- WBC count is 6 hemoglobin 8.7 basic metabolic profile is normal except for b icarb of 15 and again worsening renal profile BUN is up to 71 creatinine 4.40 -Renal function continues to worsen; nephrology on board and planning to continue with IV Lasix and oral sodium bicarbonate; plan for possible hemodialysis in a.m. if urine output does not improve 09/09/2023 Patient is awake alert but looks very tired and lethargic lying in chair. No significant chest pain. Patient has average appetite No significant dyspnea but looks very weak Patient required pressors Patient planned and considered for hemodialysis given his worsening renal function today 5.2 compared with 1.5 upon admission He has severe cardiomyopathy with ejection fraction 20 to 25% and currently on aspirin and Plavix and amiodarone drip. Also he required pressors as above, cardiology following closely. 09/10/2023 Patient still lethargic still sitting in chair No much difference clinically from yesterday A plan to undergo hemodialysis today for first-line, hemodialysis catheter in place. Patient is oliguric. He is currently getting dobutamine and insulin drip 3 units/h He is also on aspirin and Plavix and metoprolol 09/11/2023 Patient remains very lethargic No new complaint He remains on dobutamine drip at 2.5 He is getting the third round of hemodialysis today His insulin drip switched to sliding scale and Levemir Continue with dual antiplatelet therapy Labs showing stable hemoglobin 9.5. Platelet 1 28,000 09/12/2023 Patient looks more awake and alert today, he still generally weak sitting up in chair. No chest pain no dyspnea, no other specific complaint he Is getting hemodialysis. Creatinine down to 2.9. Hemoglobin stable, platelet count stable. He was started on Levemir 14 and twice daily yesterday, his sugar was on the low side this morning therefore we are going to lower the dose to Levemir 15 units at bedtime with close monitoring. Started also on sodium bicarb 09/13. Patient seen and examined. Vital signs this morning WNL at 76, heart rate 115, respiratory rate. 14, blood pressure 118/71.Lab work done showed WBC 27.2, hemoglobin 9.7, platelet count 69, sodium 128, potassium 4.1, BUN 40, creatinine 2.83. Patient getting dialysis today. Currently not requiring any oxygen. 09/14. Patient seen and examined. Sitting upright in the chair. Labs done this morning showed WBC 21.9 hemoglobin 10, platelet count 73, sodium 130, potassium 3.7, BUN 37, creatinine 2.58. Currently on IV Rocephin for UTI 09/15. Patient seen and examined.Blood work done this morning showed WBC 15.5, hemoglobin 9.7, platelet count 109, sodium 132, potassium 3.6, BUN 40, creat inine 3.43. Patient scheduled for permacath placement today 09/16/2022 Patient looks more energetic relaxed and sitting up in bed compared to last week He denies any specific complaint Hobson catheter in place No chest pain or dyspnea He is on ceftriaxone, urine culture growing E. coli. Patient has leukocytosis about 17,000 Also his sugars controlled on Levemir 15 units increased today to 17 units Rest of labs reviewed and they are stable. Creatinine 2.3 and patient had permacath placed yesterday undergoing hemodialysis 09/18/2023 No chest pain no dyspnea No abdominal pain and tolerates diet well He still on ceftriaxone for sensitive E. coli in the urine culture Is on aspirin and Plavix and metoprolol Hemodialysis per nephrology Sugar slightly on the low side so we lowered his Levemir to 15 units daily 09/19/2023 Patient denies chest pain. Denies any other complaint He has average appetite but no abdominal pain and nausea diarrhea Hobson catheter in place. Glucose was low this morning therefore we lowered his Levemir 17 units down to 15 units Continue with dual antiplatelet therapy with aspirin and Plavix and ceftriaxone and amiodarone 09/20/2023 H day patient getting more energetic. Today he is up in bed eating his breakfast. He denies chest pain or dyspnea No other new complaint Patient planned for hemodialysis today 09/21/2023 Patient lying in bed comfortable No new complaints He completed his ceftriaxone which was discontinued, For his UTI. Currently no urinary symptoms He is on aspirin and Plavix sugars controlled 09/22. Patient seen and examined. Currently in ICU, getting dialysis today REVIEW OF SYSTEMS: CONSTITUTIONAL: No fever, no malaise,. CARDIOVASCULAR: No chest pain, no palpitations, no syncope. PULMONARY: No shortness of breath, no cough, GASTROINTESTINAL: No diarrhea, no nausea, no vomiting, no abdominal pain. NEUROLOGICAL: No headaches, no weakness, PHYSICAL EXAMINATION: GENERAL: The patient is alert, not in any acute distress. Well developed, well nourished. HEENT: Pupils are round and equally reacting to light. EOMI. No scleral icterus. No conjunctival pallor. Normocephalic, atraumatic. No pharyngeal erythema. No thyromegaly. CARDIOVASCULAR: S1 and S2 present. No murmurs, rubs, or gallops. PULMONARY: Chest is clear to auscultation, no wheezing or crackles. ABDOMEN: Soft, nontender, nondistended, normoactive bowel sounds. No palpable organomegaly. MUSCULOSKELETAL: No joint swelling or deformity. EXTREMITIES: No cyanosis, clubbing, or pedal edema. NEUROLOGICAL: Gross neurological examination did not reveal any focal deficits. SKIN: No rashes. Assessment and plan Acute on chronic systolic ejection of congestive heart failure with ejection fraction worsened 35% down to 25% S/P three-vessel bypass grafting. UTI Postoperative hypoxic respiratory failure Cardiogenic shock Acute kidney injury requiring hemodialysis Peripheral vascular disease Hypertension Hyperlipidemia Diabetes mellitus Bipolar disorder Monitor vital signs Monitor CBC Monitor CMP Continue telemetry monitoring Encourage use of incentive spirometer Status post coronary artery bypass surgery on 09/02/2023 started on hemodialysis on 09/09/2023 for severe progressive ATN Continue aspirin, Plavix Continue Lopressor, Monitor blood sugar levels, continue current regimen of insulin Nephrology following, continue maintenance dialysis per nephrology Critical care following CT surgery following Labs and medication were reviewed.. Continue same treatment. Continue with symptomatic treatment. Resume home medication. Monitor labs and vitals. DVT and GI prophylaxis. Further recommendations as per clinical course of the patient Dictation was produced using [employer] dictation software. please excuse any grammatical, word or spelling errors. Objective - Vital Signs Vital signs: Vital Signs Temp 98.1 F 09/23/23 08:00 Pulse 79 09/23/23 08:00 Resp 17 09/23/23 08:00 BP 106/61 09/23/23 08:00 Pulse Ox 96 09/23/23 00:00 FiO2 40 09/02/23 20:33 Intake & Output 09/22/23 09/23/23 09/23/23 18:59 06:59 18:59 Intake Total 400 240 Output Total 5 0 Balance 395 240 Weight 90 kg Intake: IV 100 Sodium Ferric Gluconat- 100 Sucrose 125 mg In Sodium Chloride 0.9% 100 ml @ 100 mls/hr IVPB DAILY [facility] Rx#:[id number] Oral 300 240 Output: Urine 5 0 Other: Voiding Method Indwelling Catheter ABP, PAP, CO, CI - Last Documented Arterial Blood Pressure 83/58 Pulmonary Artery Pressure 45/17 Cardiac Output 3.5 Cardiac Index 2 - Labs CBC & Chem 7: 09/23/23 05:20 09/23/23 05:20 Labs: Abnormal Lab Results - Last 24 Hours (Table) 09/22/23 09/22/23 09/23/23 Range/Units 16:06 19:46 05:20 RBC 2.82 L (4.30-5.90) m/uL Hgb 8.6 L (13.0-17.5) gm/dL Hct 28.4 L (39.0-53.0) % MCV 100.8 H (80.0-100.0) fL MCHC 30.2 L (31.0-37.0) g/dL RDW 16.2 H (11.5-15.5) % Sodium (137-145) mmol/L BUN (9-20) mg/dL Creatinine (0.66-1.25) mg/dL Glucose (74-99) mg/dL POC Glucose (mg/dL) 128 H 138 H (70-110) mg/dL 09/23/23 09/23/23 Range/Units 05:20 06:33 RBC (4.30-5.90) m/uL Hgb (13.0-17.5) gm/dL Hct (39.0-53.0) % MCV (80.0-100.0) fL MCHC (31.0-37.0) g/dL RDW (11.5-15.5) % Sodium 134 L (137-145) mmol/L BUN 44 H (9-20) mg/dL Creatinine 3.98 H (0.66-1.25) mg/dL Glucose 73 L (74-99) mg/dL POC Glucose (mg/dL) 69 L (70-110) mg/dL
[2023-09-23 17:04] LABS: Glucose,Whole Blood 139 mg/dL (70-110)
[2023-09-23 19:50] LABS: Glucose,Whole Blood 219 mg/dL (70-110)
[2023-09-24 05:44] LABS: Glucose,Whole Blood 58 mg/dL (70-110)
[2023-09-24 06:07] LABS: Glucose,Whole Blood 70 mg/dL (70-110)
[2023-09-24 06:27] LABS: Glucose,Whole Blood 94 mg/dL (70-110)
--- NOTE | 2023-09-24 08:23 | XR ---
EXAMINATION TYPE: XR chest 1V portable DATE OF EXAM: 09/24/2023 5:45 AM CLINICAL INDICATION:Male, 63 years old with history of post cardiac surgery; [facility] COMPARISON: Chest radiograph from one day prior. TECHNIQUE: XR chest 1V portable Frontal view of the chest. FINDINGS: Lungs/Pleura: Increasing right pleural effusion. No left pleural effusion. No pneumothorax. Pulmonary vascularity: Pulmonary vascular congestion. Heart/mediastinum: Cardiomediastinal silhouette is enlarged and stable. Left atrial appendage occlusi on device is present. Musculoskeletal: No acute osseous pathology. Other findings: None Lines/Tubes: Right central venous catheter with distal tip at the cavoatrial junction. IMPRESSION: 1. Stable exam post Cardiac surgery with mild pulmonary vascular congestion. Right support catheter in appropriate and stable position. 2. Similar right pleural effusion.
[2023-09-24 09:29] LABS: Anisocytosis Slight; HCT 28.4 % (39.0-53.0); HGB 8.7 gm/dL (13.0-17.5); Hypochromasia Marked; MCH 31.1 pg (25.0-35.0); MCHC 30.5 g/dL (31.0-37.0); MCV 101.9 fL (80.0-100.0); Macrocytosis Moderate; Mean Platelet Volume 7.8; Platelet Count 220 k/uL (150-450); RBC 2.78 m/uL (4.30-5.90); RDW 16.3 % (11.5-15.5); WBC 9.5 k/uL (3.8-10.6)
--- NOTE | 2023-09-24 09:39 | P.PN ---
Subjective Progress Note Date: 09/24/23 Principal diagnosis: Triple-vessel coronary artery disease with left main disease. Previous medical history of hypertension, hyperlipidemia, diabetes mellitus, chronic systolic he art failure with reduced ejection fraction/ischemic cardiomyopathy, bipolar disorder, obesity, peripheral vascular disease, developmental delay, previous tobacco dependence, noncompliance POD #23 right heart catheterization, ultrasound guided access, placement of intra-aortic balloon pump from right femoral access performed by Dr. Monreal. POD #22 on pump coronary artery bypass grafting x 3, left internal thoracic artery (in-situ) sequential to diagonal and left anterior descending coronary a rtery, right greater saphenous vein from aorta to obtuse marginal artery #1, left atrial appendage ligation with #35mm AtriClip, endoscopic bilateral greater saphenous vein harvest, graft flow measurements using the BlueSn[employer]-stim flow meter system, trans-esophageal echo Postoperative acute blood loss anemia and thrombocytopenia, expected given hemodilution and cardiopulmonary bypass LEONARDO, status post placement of temp dialysis cath by Dr. Adkins, status post permacath by Dr. Weller Elevated transaminases, likely due to hypoperfusion, trending down Cardiogenic shock, resolved E. coli UTI, treated The patient was seen and examined sitting up in recliner this morning in no acute distress eating breakfast. Currently in sinus rhythm, blood pressure stable. Currently on room air with oxygen saturation in the high 90s. Continues to receive dialysis on Saturday, Saturday, Saturday schedule, will switch to Saturday, , Saturday schedule at [facility]. Patient is in good spirits and improving daily. Chest x-ray, labs reviewed. Insurance authorization obtained for [facility], anticipate discharge to [facility] this afternoon. No other new concerns. Objective - Vital Signs Vital signs: Vital Signs Temp 98.2 F 09/24/23 08:00 Pulse 74 09/24/23 08:00 Resp 17 09/24/23 08:00 BP 107/50 09/24/23 08:00 Pulse Ox 97 09/24/23 08:00 FiO2 40 09/02/23 20:33 Intake & Output 09/23/23 09/24/23 09/24/23 18:59 06:59 18:59 Intake Total 1000 225 Output Total 2500 Balance -1500 225 Weight 86.1 kg Intake: Oral 500 225 Hemodialysis 500 Output: Urine 0 Hemodialysis 2500 Other: # Voids 0 # Bowel Movements 1 1 ABP, PAP, CO, CI - Last Documented Arterial Blood Pressure 83/58 Pulmonary Artery Pressure 45/17 Cardiac Output 3.5 Cardiac Index 2 - Exam CONSTITUTIONAL: Appears comfortable, no acute distress RESPIRATORY: Lungs sounds diminished bilaterally. Respirations even, nonlabored. Currently on room air with oxygen saturation 97%. Only able to achieve 500 mL on incentive spirometry CARDIOVASCULAR: S1, S2 present. Regular rate and rhythm, sinus rhythm on telemetry. Sternum stable. Palpable peripheral pulses bilaterally. Trace generalized edema present. No calf pain or tenderness noted. Heart hugger, antiembolism stockings, SCDs present. GASTROINTESTINAL: Abdomen soft, nontender, nondistended. Active bowel sounds present 4 quadrants. Tolerating minimal diet. Positive bowel movement 09/22 GENITOURINARY: Minimal urine output. Right subclavian permacath present INTEGUMENTARY: Skin is warm and dry. Anterior chest incision well approximated. Bilateral lower extremity EVH sites well approximated without redness or drainage. NEUROLOGIC: Cranial nerves II through XII intact MUSKULOSKELETAL: Able to move all extremities, strength equal bilaterally, generalized weakness present PSYCHIATRIC: Alert and oriented - Allied health notes Allied health notes reviewed: nursing - Labs CBC & Chem 7: 09/24/23 09:01 09/23/23 05:20 Labs: Abnormal Lab Results - Last 24 Hours (Table) 09/23/23 09/23/23 09/24/23 Range/Units 17:02 19:49 05:43 RBC (4.30-5.90) m/uL Hgb (13.0-17.5) gm/dL Hct (39.0-53.0) % MCV (80.0-100.0) fL MCHC (31.0-37.0) g/dL RDW (11.5-15.5) % POC Glucose (mg/dL) 139 H 219 H 58 L (70-110) mg/dL 09/24/23 Range/Units 09:01 RBC 2.78 L (4.30-5.90) m/uL Hgb 8.7 L (13.0-17.5) gm/dL Hct 28.4 L (39.0-53.0) % MCV 101.9 H (80.0-100.0) fL MCHC 30.5 L (31.0-37.0) g/dL RDW 16.3 H (11.5-15.5) % POC Glucose (mg/dL) (70-110) mg/dL - Imaging and Cardiology Chest x-ray: report reviewed, image reviewed Assessment and Plan Assessment: Triple-vessel coronary artery disease with left main disease, status post three- vessel on pump CABG History of hypertension Hyperlipidemia, treated, cholesterol 135, LDL 60, triglycerides 178 Diabetes mellitus, preoperative hemoglobin A1c 7.4% Chronic systolic heart failure with reduced ejection fraction/ischemic cardiomyopathy, EF 30-35%, preoperative placement of intra-aortic balloon pump Bipolar disorder Obesity Peripheral vascular disease, right FAIZAN 0.95, left FAIZAN 0.97 Developmental delay Previous tobacco dependence Moderate COPD, preoperative FEV1 55% of predicted Noncompliance Postoperative acute blood loss anemia and thrombocytopenia, expected Incidental finding of tiny left pneumothorax, not a complication, resolved LEONARDO, status post dialysis cath placement Elevated transaminases, cardiogenic shock, likely from hypoperfusion, resolved Medical debility E. coli UTI Plan: Continue aspirin, statin, Plavix and beta-feliberto with hold parameters Continue midodrine Encourage use of incentive spirometry 10 times every hour while awake. Bronchodilators per pulmonology Increase activity, ambulate as tolerated. PT/OT/cardiac rehab following Will monitor daily labs and chest x-rays Dialysis per nephrology, dialysis Saturday, Saturday, Saturday, will transition to Saturday, , Saturday rotation at [facility] Avoid nephrotoxins Pain control per current medication regimen. Avoid to Toradol. No narcotics Continue to record strict accurate intake and output Insulin management per internal medicine GI/DVT prophylaxis Daily weights Encourage oral intake, supplements ordered Patient needs continued encouragement to participate in his care Anticipate discharged to [facility] this afternoon More recommendations to follow based on patient's clinical course.
[2023-09-24 09:47] LABS: African American GFR (CKD) 25 (>60 ml/min/1.73 sqM); Anion Gap 12 mmol/L; Blood Urea Nitrogen 30 mg/dL (9-20); Calcium 8.6 mg/dL (8.4-10.2); Carbon Dioxide 27 mmol/L (22-30); Chloride 97 mmol/L (98-107); Glucose 84 mg/dL (74-99); Non-African American GFR(CKD) 22 (>60 ml/min/1.73 sqM); Potassium 4.2 mmol/L (3.5-5.1); Sodium 136 mmol/L (137-145)
--- NOTE | 2023-09-24 10:41 | P.DS ---
Providers Date of admission: 09/01/23 09:03 Expected date of discharge: 09/24/23 Attending physician: Everett Weller MD Consults: 09/01/23 08:39 Consult Physician Routine Consulting Provider: Clotilde Tinsley Consult Reason/Comments: ICU management Do you want consulting provider notified?: Already Contacted Consult Physician Routine Consulting Provider: Daja Burgess Consult Reason/Comments: Medical Management Do you want consulting provider notified?: Yes Consult to Anesthesia Routine Consulting Provider: Anesthesia,Services Consult Reason/Comments: Cardiac Surgery Pre-Op 09/01/23 08:43 Consult Physician Routine Consulting Provider: Theodore Monreal Consult Reason/Comments: Cardiology management Do you want consulting provider notified?: Already Contacted 09/06/23 07:12 Consult Physician Routine Consulting Provider: Aman Elias Consult Reason/Comments: LEONARDO post CABG Do you want consulting provider notified?: Yes 09/09/23 07:43 Consult Physician Urgent Consulting Provider: Derrek Adkins Consult Reason/Comments: temp dialysis cath Do you want consulting provider notified?: Yes 09/14/23 15:14 Consult Physician Routine Consulting Provider: Luis Angel Jimenez Consult Reason/Comments: difficulty with catheter Do you want consulting provider notified?: Yes Primary care physician: Stated None Hospital Course: FINAL DIAGNOSIS: Triple-vessel coronary artery disease with left main disease History of hypertension Hyperlipidemia, treated, cholesterol 135, LDL 60, triglycerides 178 Diabetes mellitus, preoperative hemoglobin A1c 7.4% Chronic systolic heart failure with reduced ejection fraction/ischemic cardiomyopathy, EF 30-35%, preoperative placement of intra-aortic balloon pump Bipolar disorder Obesity Peripheral vascular disease, right FAIZAN 0.95, left FAIZAN 0.97 Developmental delay Previous tobacco dependence Moderate COPD, preoperative FEV1 55% of predicted Noncompliance Postoperative acute blood loss anemia and thrombocytopenia, expected Incidental finding of tiny left pneumothorax, not a complication, resolved LEONARDO, status post dialysis cath placement Elevated transaminases, cardiogenic shock, likely from hypoperfusion, resolved Medical debility E. coli UTI, treated PRINCIPAL PROCEDURE: Right heart catheterization, ultrasound guided access, placement of intra-aortic balloon pump from right femoral access performed by Dr. Monreal. On pump coronary artery bypass grafting x 3, left internal thoracic artery (in- situ) sequential to diagonal and left anterior descending coronary artery, right greater saphenous vein from aorta to obtuse marginal artery #1 Left atrial appendage ligation with #35mm AtriClip Endoscopic bilateral greater saphenous vein harvest Graft flow measurements using the Cloze-stim flow meter system Trans-esophageal echo HISTORY OF PRESENT ILLNESS: This is a 63-year-old gentleman who previously followed outpatient with Dr. Hartman for primary care and Dr. Monreal for cardiology. He was hospitalized in April 2023 with heart failure. During that hospitalization he underwent heart catheterization demonstrating 70% left main stenosis, 60 to 70% stenosis to the proximal LAD, 60 to 70% stenosis to the obtuse marginal artery, and 50 to 60% stenosis of the mid right coronary artery. He was treated for his heart failure and released. In July 2023 repeat echocardiogram was completed demonstrating EF 30 to 35%, severe hypokinesis of the apex, anterior wall, and anterolateral wall, severe pulmonary hypertension, mild to moderate mitral valve regurgitation, and moderate tricuspid reg urgitation. The patient was referred to Dr. Weller from cardiothoracic surgery. He was recommended to undergo coronary artery bypass surgery. The usual perioperative course was discussed in detail with the patient and his brother, all risks and benefits were explained, all questions were answered, and consent was obtained to proceed with surgery. The patient was brought to the hospital electively the night before surgery for placement of intra-aortic balloon pump. HOSPITAL COURSE: The patient was brought to the hospital on 09/01/23 for placement of intra-aortic balloon pump. The morning of 09/02/23 he was taken to the preoperative area, prepared in the usual fashion, and subsequently taken to the operating room where Dr. Weller performed three-vessel CABG. Upon completion of surgery the patient was transferred to the cardiovascular intensive care unit where he was recovered and monitored hemodynamically. He was extubated, all lines, tubes, and drips were discontinued when appropriate. The patient did have a liana recovery with acute kidney injury requiring dialysis catheter placement and continued dialysis per nephrology. He also had cardiogenic shock and was on pressors immediately postoperative, but was successfully able to be weaned off. Transfer orders were placed for 3 S. cardiac stepdown unit, however there was no bed availability and the patient remained on ICU as a stepdown patient until discharge. His oxygen was titrated down, he continued to work with physical and occupational therapy, he was tolerating oral diet, his pain was controlled, and he was ready to be discharged to [facility] on postoperative day #22. He received verbal instruction and was to be transported with written instructions regarding his medications, activity restrictions, signs and symp toms requiring physician notification, and follow-up appointments. Patient Condition at Discharge: Stable Plan - Discharge Summary Discharge Rx Participant: No New Discharge Prescriptions: New Darbepoetin Con [Aranesp] 40 mcg SQ Q7D each Aspirin 81 mg PO DAILY tab Ipratropium-Albuterol Nebulize [Duoneb 0.5 mg-3 mg/3 ml Soln] 3 ml INHALATION RT-QID each Ipratropium-Albuterol Nebulize [Duoneb 0.5 mg-3 mg/3 ml Soln] 3 ml INHALATION RT-Q2H PRN each PRN Reason: Shortness Of Breath Or Wheezing Heparin Sodium,Porcine (1 ml) [Heparin Sodium] 5,000 unit SQ Q8HR each Insulin Detemir (Levemir) [Levemir] 15 unit SQ HS each Atorvastatin [Lipitor] 40 mg PO DAILY tab Midodrine [ProAmatine] 5 mg PO AC-TID tab Pantoprazole [Protonix] 40 mg PO AC-BRKFST tab Sennosides-Docusate Sodium [Senokot-S] 2 each PO HS tab Benzocaine/Menthol Lozeng [Cepacol lozenge] 1 each MUCOUS MEM Q2H PRN lozenge PRN Reason: Sore Throat bisacodyL [Dulcolax] 10 mg RECTAL DAILY PRN suppositor PRN Reason: Constipation Ferrous Sulfate [Feosol] 325 mg PO DAILY #30 tab Metoprolol Tartrate [Lopressor] 12.5 mg PO BID tab INSULIN ASPART (NovoLOG) [NovoLOG (formulary)] 0 unit SQ ACHS each Clopidogrel [Plavix] 75 mg PO DAILY tab Acetaminophen Tab [Tylenol] 650 mg PO Q4HR PRN tab PRN Reason: Fever And/ Or Pain Continue Empagliflozin [Jardiance] 10 mg PO DAILY DULoxetine HCL [Cymbalta] 60 mg PO DAILY busPIRone HCL 15 mg PO BID Discontinued Losartan [Cozaar] 25 mg PO DAILY Furosemide [Lasix] 40 mg PO BID Metoprolol Succinate (ER) [Toprol Xl] 50 mg PO DAILY Spironolactone [Aldactone] 12.5 mg PO DAILY Rosuvastatin Calcium [Crestor] 40 mg PO DAILY Glimepiride [Amaryl] 2 mg PO DAILY Discharge Medication List DULoxetine HCL [Cymbalta] 60 mg PO DAILY 08/28/23 [History] Empagliflozin [Jardiance] 10 mg PO DAILY 08/28/23 [History] busPIRone HCL 15 mg PO BID 08/28/23 [History] Acetaminophen Tab [Tylenol] 650 mg PO Q4HR PRN tab 09/24/23 [Rx] Aspirin 81 mg PO DAILY tab 09/24/23 [Rx] Atorvastatin [Lipitor] 40 mg PO DAILY tab 09/24/23 [Rx] Benzocaine/Menthol Lozeng [Cepacol lozenge] 1 each MUCOUS MEM Q2H PRN lozenge 09/24/23 [Rx] Clopidogrel [Plavix] 75 mg PO DAILY tab 09/24/23 [Rx] Darbepoetin Con [Aranesp] 40 mcg SQ Q7D each 09/24/23 [Rx] Ferrous Sulfate [Feosol] 325 mg PO DAILY #30 tab 09/24/23 [Rx] Heparin Sodium,Porcine (1 ml) [Heparin Sodium] 5,000 unit SQ Q8HR each 09/24/23 [Rx] INSULIN ASPART (NovoLOG) [NovoLOG (formulary)] 0 unit SQ ACHS each 09/24/23 [Rx] Insulin Detemir (Levemir) [Levemir] 15 unit SQ HS each 09/24/23 [Rx] Ipratropium-Albuterol Nebulize [Duoneb 0.5 mg-3 mg/3 ml Soln] 3 ml INHALATION RT-Q2H PRN each 09/24/23 [Rx] Ipratropium-Albuterol Nebulize [Duoneb 0.5 mg-3 mg/3 ml Soln] 3 ml INHALATION RT-QID each 09/24/23 [Rx] Metoprolol Tartrate [Lopressor] 12.5 mg PO BID tab 09/24/23 [Rx] Midodrine [ProAmatine] 5 mg PO AC-TID tab 09/24/23 [Rx] Pantoprazole [Protonix] 40 mg PO AC-BRKFST tab 09/24/23 [Rx] Sennosides-Docusate Sodium [Senokot-S] 2 each PO HS tab 09/24/23 [Rx] bisacodyL [Dulcolax] 10 mg RECTAL DAILY PRN suppositor 09/24/23 [Rx] Follow up Appointment(s)/Referral(s): Everett Weller MD [STAFF PHYSICIAN] - 09/30/23 2:15 pm Theodore Monreal DO [STAFF PHYSICIAN] - 1 Week (Call for appointment once discharged from [facility]) Corazon Queen [STAFF PHYSICIAN] - 1 Week (telecommunications specialist for your diabetes mellitus; Call for appointment once discharged from [facility] ) Latisha Garnica,Home Care [NON-STAFF] - 1 Week (Call for start of care once discharged from [facility]) Que Hartman MD [REFERRING] - 1 Week (Call for appointment once discharged from [facility]) Bernice Wesley MD [STAFF PHYSICIAN] - 1 Week (Call for appointment once discharged from [facility]) Patient Instructions/Handouts: Moderate Sedation (DC), After Radial Heart Catheterization (GEN) Activity/Diet/Wound Care/Special Instructions: DISCHARGE INSTRUCTIONS: 1. No driving for 4 weeks, or until physician gives their ok. 2. The patient should sleep in their own bed, no medical bed needed. 3. Stairs are not an issue. If the bedroom is upstairs, it is advised that the patient go up at night and down in the morning for the first week. Go slowly, using handrail and take 1 step at a time. 4. VARUN hose are to be worn for 30 days post surgery or until physician discontinues. 5. Heart hugger is to be worn 100% of the time until physician discontinues.(except when showering) 6. No lifting, pushing, or pulling more than 10 pounds for 12 weeks. The physician will advise of any restriction changes. 7. The patient is expected to continue the prescribed walking program. 8. Continue pain control per as needed orders. 9. Continue with incentive spirometry and splinting/heart hugger until otherwise directed by the physician. 10. Must shower daily using liquid antibacterial soap 11. Routine sternal incision care. No powders, lotions, ointments on incisions. No dressings are necessary on incisions unless they are draining. Dermabond tape is to remain on sternal incision until surgeon follow-up. 12. Please call surgeon/MEAT SALES AND STORAGE MANAGER for temp greater than 101 F or purulent drainage from incisions. 13. You should weigh yourself daily, record and bring log with you to follow up appointments. 14. All prescriptions given by surgeon for 30 days. Refills need to be filled through isotope technician/primary care physician. 15. A Red armband has been placed on the patient. It should be worn for 30 days post discharge from surgery and will be removed by the cardiac surgeons. If an ER visit is necessary, please make sure the number on the Red armband is called before going to ER. 16. You have been referred to and are expected to begin Cardiac Rehab in approximately 4-6 weeks. REHAB/HOME HEALTH SERVICES TO PROVIDE: RN SKILLED HOME CARE SERVICES FOR POST-OP SURGICAL PATIENTS WITH THE FOLLOWING: Coronary Artery Bypass Surgery (CABG), Mitral Valve Replacement/Repair ( MVR), Aortic Valve Replacement/Repair (AVR) RN TO CONTINUE EDUCATION FROM ``ROAD TO A HEALTH HEART PATIENT EDUCATION MANUAL (GIVEN TO PATIENT IN THE HOSPITAL) MEDICATION RECONCILIATION WITH EDUCATION NEEDED ON FIRST HOME VISIT EMPHASIZE IMPORTANCE OF WEARING BREAST SUPPORT/HEART HUGGER ENCOURAGE USE OF INCENTIVE SPIROMETER 10 X EVERY HOUR WHILE AWAKE ENCOURAGE UTILIZATION OF LOWER EXTREMITY COMPRESSION STOCKINGS/VARUN HOSE and ELEVATE LEGS ABOVE LEVEL OF HEART WHILE AT REST. ENCOURAGE AMBULATION 3-5x/day INCREASING TOLERATES, WHILE AVOIDING EXTREMES IN TEMPERATURE FREQUENCY: RN TO OPEN THE PATIENT WITHIN 24 HOURS OF DISCHARGE FROM [facility] WITH TELEHEALTH INSTALLED AT [facility] [place], RN TO VISIT 2-3 X A WEEK FOR 4 WEEKS ESTABLISHED BY PATIENT NEEDS. LABORATORY: CBC, CMP TO BE DRAWN ON DIALYSIS DAYS, (RAN STAT) FAX RESULTS TO [phone]. TELEHEALTH PARAMETERS: WEIGHT: NOTIFY MD OF WEIGHT GAIN OF 2 LBS IN 24 HOURS OR 5 LBS IN ONE WEEK HR: NOTIFY MD OF HR <55 BPM OR HR>100 BPM BP: NOTIFY MD IF BP <90/55 OR BP>140/100 O2 SAT: NOTIFY MD IF PO2<93% ON ROOM AIR SEND TELEHEALTH REPORT TO ROAD DESIGN ENGINEER AND CARDIOVASCULAR SURGEON THE FIRST WEEK OF CARE AND THEN BI-WEEKLY. PLEASE ADDITIONALLY COMMUNICATE ANY ABNORMALS AND NEW FINDINGS TO THE SURGEONS OFFICE. we recommend to check your glucose 4 times a day before each meal and at bed time , keep the results in a log book and bring it to your doctor upon your appointment date if your glucose is less than 70 or more than 400 then call 911 and come to emergency room Discharge/Stand Alone Forms: Area PCPs Discharge Disposition: TRANSFER TO SNF/ECF
--- NOTE | 2023-09-24 11:25 | P.PN ---
Subjective patient is seen for follow-up for acute kidney injury, oliguric hemodynamic ATN. Status post coronary artery bypass surgery on 09/02/2023 Started on hemodialysis on 09/09/2023 for severe progressive hemodynamic ATN. Patient remains oliguric. Patient is awake and comfortable. patient will be discharged today to [facility]. He will be maintained on a Saturday schedule therefore patient will be dialyzed today for 2-1/2 hours prior to discharge. Objective - Vital Signs Vital signs: Vital Signs Temp 98.2 F 09/24/23 08:00 Pulse 74 09/24/23 08:00 Resp 17 09/24/23 08:00 BP 107/50 09/24/23 08:00 Pulse Ox 96 09/24/23 10:00 FiO2 40 09/02/23 20:33 Intake & Output 09/23/23 09/24/23 09/24/23 18:59 06:59 18:59 Intake Total 1000 225 Output Total 2500 Balance -1500 225 Weight 86.1 kg 86.1 kg Intake: Oral 500 225 Hemodialysis 500 Output: Urine 0 Hemodialysis 2500 Other: # Voids 0 # Bowel Movements 1 1 ABP, PAP, CO, CI - Last Documented Arterial Blood Pressure 83/58 Pulmonary Artery Pressure 45/17 Cardiac Output 3.5 Cardiac Index 2 - Exam patient is awake, comfortable. No acute distress Examination of the heart S1 and S2 Examination of the lungs decreased breath sounds at the bases Abdomen is soft Examination of lower extremities shows 1+ edema DIRECTOR OF RETAIL exam grossly intact - Labs CBC & Chem 7: 09/24/23 09:01 09/24/23 09:01 Labs: Abnormal Lab Results - Last 24 Hours (Table) 09/23/23 09/23/23 09/24/23 Range/Units 17:02 19:49 05:43 RBC (4.30-5.90) m/uL Hgb (13.0-17.5) gm/dL Hct (39.0-53.0) % MCV (80.0-100.0) fL MCHC (31.0-37.0) g/dL RDW (11.5-15.5) % Sodium (137-145) mmol/L Chloride (98-107) mmol/L BUN (9-20) mg/dL Creatinine (0.66-1.25) mg/dL POC Glucose (mg/dL) 139 H 219 H 58 L (70-110) mg/dL 09/24/23 09/24/23 Range/Units 09:01 09:01 RBC 2.78 L (4.30-5.90) m/uL Hgb 8.7 L (13.0-17.5) gm/dL Hct 28.4 L (39.0-53.0) % MCV 101.9 H (80.0-100.0) fL MCHC 30.5 L (31.0-37.0) g/dL RDW 16.3 H (11.5-15.5) % Sodium 136 L (137-145) mmol/L Chloride 97 L (98-107) mmol/L BUN 30 H (9-20) mg/dL Creatinine 2.97 H (0.66-1.25) mg/dL POC Glucose (mg/dL) (70-110) mg/dL Assessment and Plan Assessment: 1. Acute kidney injury secondary to ATN secondary to hypotension/cardiogenic shock. Baseline creatinine near 1. Oliguric. UA fairly benign. Started renal replacement therapy on 09/09/2023. patient remains hemodialysis dependent. 2. Coronary artery disease status post CABG x 3 September 02, 2023. 3. Shock, status post vasopressors 4. Cardiomyopathy with reduced ejection fraction. EF 25-20% 5. Metabolic acidosis secondary to acute kidney injury. improved 6. Urine retention status post bladder irrigation and Hobson catheter placement. 7. Anemia, multifactorial. Status post IV iron and maintained on Aranesp Plan: hemodialysis today prior to discharge. Patient will continue on a Saturday schedule as outpatient.
[2023-09-24 11:43] VITALS: BMI 35.9
[2023-09-24 11:45] LABS: Glucose,Whole Blood 60 mg/dL (70-110)
[2023-09-24 12:48] LABS: Glucose,Whole Blood 97 mg/dL (70-110)
--- NOTE | 2023-09-24 13:00 | P.PN ---
Subjective Progress Note Date: 09/24/23 63-year-old gentleman with past medical history significant for coronary artery disease, chronic congestive heart failure with ejection fraction of 30%, hypertension hyperlipidemia diabetes mellitus obesity bipolar disorder cardiomyopathy developmental delay history of nicotine dependence who has been admitted with shortness of breath and lower extremity edema. Patient underwent cardiac catheterization right heart catheterization and intra-aortic balloon pump. * Patient has comorbidities including diabetes mellitus type 2, peripheral arterial disease, bipolar disorder, history of anxiety. * Patient to undergo myocardial revascularization 09/02/2023. * 09/03/23 : Patient admitted to medical ICU. Patient was successfully extubated postprocedure. S/p intra-aortic balloon pump which remains in place through right femoral access. Patient remains on norepinephrine drip, Primacor drip, vasopressin. Bilateral chest tubes remained in place. Followed up by medical ICU and cardiac surgery. Follow-up blood work obtained including WBC 15.2 hemoglobin 9.2 platelet count of 98, serum chemistry sodium 141 potassium 4.7 carbon dioxide 24 BUN 26 creatinine 1.1 blood glucose 118-1 33 * 09/04/23: Patient seen and evaluated in medical ICU room 266, patient continues to remain on Levophed, vasopressin and pressor support. Blood work reviewed WBC 17.7 hemoglobin 9.4 platelet 117. Serum chemistry showed sodium 137 potassium 4.9 carbon dioxide 18 BUN 34 creatinine 1.52 blood glucose 123. Overnight patient was refusing to participate with care, patient counseled by cardiac surgery team as well. Brother at bedside, patient does follow commands, care plan discussed with nursing staff * 09/05/23: Patient seen and evaluated bedside, vitals reviewed blood pressure running in the 90s overnight. Patient remains on 2 L of oxygen. Blood work reviewed CBC shows WBC 14.3 hemoglobin 9.3 platelet 105 serum chemistry sodium 137 potassium 5.2 carbon dioxide 16 BUN 44 creatinine 1.99 total bilirubin 1.3 AST 464 ALT 128 will need to be monitored, p.atient remains lethargic however easily arousable 09/06/2023 -- Patient is seen and evaluated in ICU at bedside Vital signs reviewed and temperature of 97.9, pulse 90, respiration 14 and blood pressure of 110/40 Lab review shows WBC 14.2, hemoglobin of 8.7 and platelet count of 109, sodium 136, potassium 4.8, BUNs/creatinine of 54/2.91; concern about worsening renal function likely related to cardiorenal syndrome; dopamine has been discontinued Chest x-ray reveals atelectasis and bibasilar pleural effusion --Patient remains on pressors and inotropic agents; cardiac index and cardiac output is being monitored closely -Patient remains on Plavix, aspirin, statins and beta-blockers -- Recommended to increase activity 09/07/2023 ---patient is basically about the same, he is now postoperative day #5, sitting at the bedside chair, patient is not motivated what bit remains on multiple inotropes and pressors, patient is receiving dopamine at 2.5 mcg/kg/min dobutamine at 5 mcg/kg/min norepinephrine at 0.06 mcg/kg/min vasopressin at 0.03 units/min and he is also on insulin at 3.5 units/h today he is off milrinone. Chest x-ray showed mostly atelectasis at the bases. No clear-cut evidence of pulmonary edema. Patient is maintained on 2 L nasal cannula, again the patient is doing extremely poorly with incentive spirometry and does not seem to be mot ivated at all. Renal functioning seems to be getting worse, his BUN is 63 creatinine 3.54, at this rate I am quite concerned with the patient may end up requiring hemodialysis. This is being addressed by nephrology on the case. Liver enzymes are improving Continue pressors and inotropes continue to monitor cardiac index and cardiac output Continue dopamine, continue dobutamine, patient is off milrinone today. However he is still requiring norepinephrine and vasopressin Continue Plavix beta-blockers aspirin and statin Titrate pressors and inotropes as tolerated 09/08/2023 --patient is seen and evaluated with family at bedside; now postoperative day #6. -- Patient is still requiring dobutamine at 0.5 mcg/kg/min, still requiring vasopressin at 0.02 units/min, his norepinephrine is presently on hold, and milrinone was discontinued. Still on insulin at 3 units/h. -- chest x-ray is showing bibasilar atelectasis and small left pleural effusion with a small right pleural effusion -- WBC count is 6 hemoglobin 8.7 basic metabolic profile is normal except for b icarb of 15 and again worsening renal profile BUN is up to 71 creatinine 4.40 -Renal function continues to worsen; nephrology on board and planning to continue with IV Lasix and oral sodium bicarbonate; plan for possible hemodialysis in a.m. if urine output does not improve 09/09/2023 Patient is awake alert but looks very tired and lethargic lying in chair. No significant chest pain. Patient has average appetite No significant dyspnea but looks very weak Patient required pressors Patient planned and considered for hemodialysis given his worsening renal function today 5.2 compared with 1.5 upon admission He has severe cardiomyopathy with ejection fraction 20 to 25% and currently on aspirin and Plavix and amiodarone drip. Also he required pressors as above, cardiology following closely. 09/10/2023 Patient still lethargic still sitting in chair No much difference clinically from yesterday A plan to undergo hemodialysis today for first-line, hemodialysis catheter in place. Patient is oliguric. He is currently getting dobutamine and insulin drip 3 units/h He is also on aspirin and Plavix and metoprolol 09/11/2023 Patient remains very lethargic No new complaint He remains on dobutamine drip at 2.5 He is getting the third round of hemodialysis today His insulin drip switched to sliding scale and Levemir Continue with dual antiplatelet therapy Labs showing stable hemoglobin 9.5. Platelet 1 28,000 09/12/2023 Patient looks more awake and alert today, he still generally weak sitting up in chair. No chest pain no dyspnea, no other specific complaint he Is getting hemodialysis. Creatinine down to 2.9. Hemoglobin stable, platelet count stable. He was started on Levemir 14 and twice daily yesterday, his sugar was on the low side this morning therefore we are going to lower the dose to Levemir 15 units at bedtime with close monitoring. Started also on sodium bicarb 09/13. Patient seen and examined. Vital signs this morning WNL at 76, heart rate 115, respiratory rate. 14, blood pressure 118/71.Lab work done showed WBC 27.2, hemoglobin 9.7, platelet count 69, sodium 128, potassium 4.1, BUN 40, creatinine 2.83. Patient getting dialysis today. Currently not requiring any oxygen. 09/14. Patient seen and examined. Sitting upright in the chair. Labs done this morning showed WBC 21.9 hemoglobin 10, platelet count 73, sodium 130, potassium 3.7, BUN 37, creatinine 2.58. Currently on IV Rocephin for UTI 09/15. Patient seen and examined.Blood work done this morning showed WBC 15.5, hemoglobin 9.7, platelet count 109, sodium 132, potassium 3.6, BUN 40, creat inine 3.43. Patient scheduled for permacath placement today 09/16/2022 Patient looks more energetic relaxed and sitting up in bed compared to last week He denies any specific complaint Hobson catheter in place No chest pain or dyspnea He is on ceftriaxone, urine culture growing E. coli. Patient has leukocytosis about 17,000 Also his sugars controlled on Levemir 15 units increased today to 17 units Rest of labs reviewed and they are stable. Creatinine 2.3 and patient had permacath placed yesterday undergoing hemodialysis 09/18/2023 No chest pain no dyspnea No abdominal pain and tolerates diet well He still on ceftriaxone for sensitive E. coli in the urine culture Is on aspirin and Plavix and metoprolol Hemodialysis per nephrology Sugar slightly on the low side so we lowered his Levemir to 15 units daily 09/19/2023 Patient denies chest pain. Denies any other complaint He has average appetite but no abdominal pain and nausea diarrhea Hobson catheter in place. Glucose was low this morning therefore we lowered his Levemir 17 units down to 15 units Continue with dual antiplatelet therapy with aspirin and Plavix and ceftriaxone and amiodarone 09/20/2023 H day patient getting more energetic. Today he is up in bed eating his breakfast. He denies chest pain or dyspnea No other new complaint Patient planned for hemodialysis today 09/21/2023 Patient lying in bed comfortable No new complaints He completed his ceftriaxone which was discontinued, For his UTI. Currently no urinary symptoms He is on aspirin and Plavix sugars controlled 09/22. Patient seen and examined. Currently in ICU, getting dialysis today 09/23. Patient seen and examined. Being discharged to rehab facility. Medically stable for discharge REVIEW OF SYSTEMS: CONSTITUTIONAL: No fever, no malaise,. CARDIOVASCULAR: No chest pain, no palpitations, no syncope. PULMONARY: No shortness of breath, no cough, GASTROINTESTINAL: No diarrhea, no nausea, no vomiting, no abdominal pain. NEUROLOGICAL: No headaches, no weakness, PHYSICAL EXAMINATION: GENERAL: The patient is alert, not in any acute distress. Well developed, well nourished. HEENT: Pupils are round and equally reacting to light. EOMI. No scleral icterus. No conjunctival pallor. Normocephalic, atraumatic. No pharyngeal erythema. No thyromegaly. CARDIOVASCULAR: S1 and S2 present. No murmurs, rubs, or gallops. PULMONARY: Chest is clear to auscultation, no wheezing or crackles. ABDOMEN: Soft, nontender, nondistended, normoactive bowel sounds. No palpable organomegaly. MUSCULOSKELETAL: No joint swelling or deformity. EXTREMITIES: No cyanosis, clubbing, or pedal edema. NEUROLOGICAL: Gross neurological examination did not reveal any focal deficits. SKIN: No rashes. Assessment and plan Acute on chronic systolic ejection of congestive heart failure with ejection fraction worsened 35% down to 25% S/P three-vessel bypass grafting. UTI Postoperative hypoxic respiratory failure Cardiogenic shock Acute kidney injury requiring hemodialysis Peripheral vascular disease Hypertension Hyperlipidemia Diabetes mellitus Bipolar disorder Monitor vital signs Monitor CBC Monitor CMP Continue telemetry monitoring Encourage use of incentive spirometer Status post coronary artery bypass surgery on 09/02/2023 started on hemodialysis on 09/09/2023 for severe progressive ATN Continue aspirin, Plavix Continue Lopressor, Monitor blood sugar levels, continue current regimen of insulin Nephrology following, continue maintenance dialysis per nephrology Critical care following CT surgery following Labs and medication were reviewed.. Continue same treatment. Continue with symptomatic treatment. Resume home medication. Monitor labs and vitals. DVT and GI prophylaxis. Further recommendations as per clinical course of the patient Dictation was produced using [employer] dictation software. please excuse any grammatical, word or spelling errors. Objective - Vital Signs Vital signs: Vital Signs Temp 98.1 F 09/24/23 12:00 Pulse 71 09/24/23 12:00 Resp 16 09/24/23 12:00 BP 102/67 09/24/23 12:00 Pulse Ox 98 09/24/23 12:00 FiO2 40 09/02/23 20:33 Intake & Output 09/23/23 09/24/23 09/24/23 18:59 06:59 18:59 Intake Total 1000 225 Output Total 2500 Balance -1500 225 Weight 86.1 kg 86.1 kg Intake: Oral 500 225 Hemodialysis 500 Output: Urine 0 Hemodialysis 2500 Other: # Voids 0 # Bowel Movements 1 1 ABP, PAP, CO, CI - Last Documented Arterial Blood Pressure 83/58 Pulmonary Artery Pressure 45/17 Cardiac Output 3.5 Cardiac Index 2 - Labs CBC & Chem 7: 09/24/23 09:01 09/24/23 09:01 Labs: Abnormal Lab Results - Last 24 Hours (Table) 09/23/23 09/23/23 09/24/23 Range/Units 17:02 19:49 05:43 RBC (4.30-5.90) m/uL Hgb (13.0-17.5) gm/dL Hct (39.0-53.0) % MCV (80.0-100.0) fL MCHC (31.0-37.0) g/dL RDW (11.5-15.5) % Sodium (137-145) mmol/L Chloride (98-107) mmol/L BUN (9-20) mg/dL Creatinine (0.66-1.25) mg/dL POC Glucose (mg/dL) 139 H 219 H 58 L (70-110) mg/dL 09/24/23 09/24/23 09/24/23 Range/Units 09:01 09:01 11:43 RBC 2.78 L (4.30-5.90) m/uL Hgb 8.7 L (13.0-17.5) gm/dL Hct 28.4 L (39.0-53.0) % MCV 101.9 H (80.0-100.0) fL MCHC 30.5 L (31.0-37.0) g/dL RDW 16.3 H (11.5-15.5) % Sodium 136 L (137-145) mmol/L Chloride 97 L (98-107) mmol/L BUN 30 H (9-20) mg/dL Creatinine 2.97 H (0.66-1.25) mg/dL POC Glucose (mg/dL) 60 L (70-110) mg/dL
--- NOTE | 2023-09-24 13:25 | P.PN ---
Subjective Progress Note Date: 09/24/23 Principal diagnosis: POD # 22 off-pump coronary artery bypass grafting surgery x 3, left internal thoracic artery (in-situ) sequential to diagonal and left anterior descending coronary artery, right greater saphenous vein from aorta to obtuse marginal artery 1 63-year-old male patient, was brought into the intensive care unit after having an antibiotic balloon pump inserted this morning and this was done in preparation for coronary artery bypass surgery. The patient is known to have CAD, chronic CHF with impaired ejection fraction of 30 to 35%. The patient has been hospitalized with [facility] and an earlier cardiac catheterization from April 2023 showed a 70% left main, 70% proximal LAD, 30% circumflex and 70% obtuse marginal 1 and 60% mid RCA. The patient has impaired LV function with an EF around 30 to 35% along with mild to moderate MR, and severe pulm hypertension. The patient is scheduled to undergo coronary artery bypass surgery tomorrow. He is currently on room air oxygen. Free of any chest pain. Hemodynamically stable. Augmented blood pressure is around 80. He has some developmental delay and his other comorbid conditions include diabetes mellitus type 2, hypertension and hyperlipidemia. Blood work shows a white cell count of 9, hemoglobin 11.8, platelet count of 206, normal coagulation profile, BUN of 27 with a creatinine of 1 and sodium levels at 138. LFTs are normal. His CAT scan of the chest that was done on 07/16/2023 showed cardiomegaly with small right and left-sided pleural effusion. This is consistent with CHF. No mediastinal lymphadenopathy. On 09/20/2023, the patient is being seen for a follow-up. The patient is essentially the same undergoing hemodialysis today. Chest x-ray findings are unchanged compared to yesterday. The patient remains in normal sinus rhythm. The chest x-ray is showing CHF with increased pulm vascular markings and edema. Nevertheless, the patient remains on room air oxygen. The white cell count is at 9.1 with a hemoglobin of 8.7. BUN is at 39 with a creatinine of 2.8 and sodium levels at 132. Urine output is quite diminished at this point in time. Patient is being seen by nephrology and cardiothoracic surgery. No chest pain. He is on room air oxygen. He remains on metoprolol 12.5 mg p.o. twice a day. He remains on midodrine. He remains on Levemir insulin. Remains on aspirin and Plavix. On today's evaluation on 09/21/2023, the patient is doing well. He has no specific complaints. He is postop day #19 following three-vessel bypass surgery. He also sustained an acute kidney injury. He is sitting up in a chair and is currently on room air oxygen. Undergoing hemodialysis 3 times a week MWF. He is awaiting insurance verification authorization for subacute rehabilitation. No other major concerns for now. The blood counts at 7.6 with a hemoglobin 8.5, BUN is 28 with a creatinine of 2.5 and a sodium levels at 133. The patient is afebrile. The patient is hemodynamically stable. The patient remains oliguric. Noted his baseline creatinine was at 1.0. No dialysis will be done over the weekend and next dialysis is probably on Saturday. Remains on Aranesp. Remains on IV iron. On 09/22/2023, no new complaints. Patient is on room air oxygen with a pulse ox of 95%. Hemodynamically stable. The blood work from today shows a WBC of 7.8 w ith a hemoglobin 8.4, BUN 37 with a creatinine of 3.11 and a sodium levels at 134. Using incentive spirometer. Using the morphCARD for mobility. Medication unchanged. The patient remains on aspirin and Plavix. The patient remains on metoprolol 12.5 mg twice daily patient is also on midodrine 5 mg p.o. 3 times daily. The patient is on statin with Lipitor 40 mg p.o. daily. The patient is also receiving IV iron. He is on Levemir insulin 15 units along with that he is on sliding scale insulin coverage. No other significant events overnight. Cardiac rhythm remained sinus. Patient was evaluated on 09/23/2023, remains in the ICU, presently undergoing hemodialysis, and the plan is to remove at least 2 L of fluids. Patient is in bed, comfortable, does not seem to be in distress, workup for possible placement in ECF is pending. Chest x-ray continues to show congestive heart failure and small right-sided pleural effusion. WBC count today is 7.8 hemoglobin 8.6. Basic metabolic profile is normal BUN is 44 creatinine 3.98. Patient is still receiving hemodialysis, Patient was reevaluated today on 09/24/2023, patient remains in the ICU, he is receiving hemodialysis today, and the plan is eventually to transfer the patient to [facility]. Patient is also receiving iron infusion. Chest x-ray continues to show evidence of fluid overload, nonetheless patient is receiving dialysis today and he will be receiving that every other day beginning . Patient is on room air, not in distress. WBC count is 9.5 hemoglobin 8.7 basic metabolic profile is normal BUN is 30 creatinine 2.97 Objective - Vital Signs Vital signs: Vital Signs Temp 98.1 F 09/24/23 12:00 Pulse 71 09/24/23 12:00 Resp 16 09/24/23 12:00 BP 102/67 09/24/23 12:00 Pulse Ox 98 09/24/23 12:00 FiO2 40 09/02/23 20:33 Intake & Output 09/23/23 09/24/23 09/24/23 18:59 06:59 18:59 Intake Total 1000 225 Output Total 2500 Balance -1500 225 Weight 86.1 kg 86.1 kg Intake: Oral 500 225 Hemodialysis 500 Output: Urine 0 Hemodialysis 2500 Other: # Voids 0 # Bowel Movements 1 1 ABP, PAP, CO, CI - Last Documented Arterial Blood Pressure 83/58 Pulmonary Artery Pressure 45/17 Cardiac Output 3.5 Cardiac Index 2 - Exam GENERAL EXAM: Reveals 63-year-old white male on room air. HEAD: Normocephalic. EYES: PERRLA, EOMI. NOSE: Clear with pink turbinates. THROAT: No erythema or exudates. NECK: No masses, no JVD. CHEST: Sternal dressing dry and intact. Heart hugger in place. LUNGS: Diminished breath sound bilaterally no rhonchi no wheezes CVS: S1 and S2 normal with no audible murmur, regular rhythm. ABDOMEN: No hepatosplenomegaly, diminished bowel sounds, no guarding or rigidity. SKIN: No rashes CENTRAL NERVOUS SYSTEM: Alert and oriented x 3 no gross focal deficits EXTREMITIES: no clubbing trace of bipedal edema, no cyanosis. - Labs CBC & Chem 7: 09/24/23 09:01 09/24/23 09:01 Labs: Abnormal Lab Results - Last 24 Hours (Table) 09/23/23 09/23/23 09/24/23 Range/Units 17:02 19:49 05:43 RBC (4.30-5.90) m/uL Hgb (13.0-17.5) gm/dL Hct (39.0-53.0) % MCV (80.0-100.0) fL MCHC (31.0-37.0) g/dL RDW (11.5-15.5) % Sodium (137-145) mmol/L Chloride (98-107) mmol/L BUN (9-20) mg/dL Creatinine (0.66-1.25) mg/dL POC Glucose (mg/dL) 139 H 219 H 58 L (70-110) mg/dL 09/24/23 09/24/23 09/24/23 Range/Units 09:01 09:01 11:43 RBC 2.78 L (4.30-5.90) m/uL Hgb 8.7 L (13.0-17.5) gm/dL Hct 28.4 L (39.0-53.0) % MCV 101.9 H (80.0-100.0) fL MCHC 30.5 L (31.0-37.0) g/dL RDW 16.3 H (11.5-15.5) % Sodium 136 L (137-145) mmol/L Chloride 97 L (98-107) mmol/L BUN 30 H (9-20) mg/dL Creatinine 2.97 H (0.66-1.25) mg/dL POC Glucose (mg/dL) 60 L (70-110) mg/dL Assessment and Plan Assessment: Impression: Symptomatic multivessel coronary artery disease, Status post on pump coronary artery bypass grafting x 3. Left internal thoracic artery sequential to diagonal and LAD. Right SVG from aorta to obtuse marginal artery #1. Postoperative day #22 Chronic systolic heart failure with impaired ejection fraction of 30 to 35% patient is not requiring presently any pressors or any inotropes. cardiogenic shock and severe LV dysfunction Peripheral vascular disease Diabetes mellitus type 2 with an HbA1c of 10.9 Hypertension Hyperlipidemia History of developmental delay Bipolar disorder Chronic anxiety History of smoking quit more than 20 years ago Left apical pneumothorax, resolved Acute renal failure possibly cardiorenal, patient has been requiring hemodialysis while in the hospital Severe cardiomyopathy Recommendations: Continue hemodialysis Placement in ECF is in progress Continue Plavix beta-blockers aspirin and statin Daily x-rays of the chest Incentive spirometry Continue midodrine for low blood pressure Continue oral bicarb supplement Likely go to half-way today Time with Patient: Less than 30
[2023-09-24 16:43] VITALS: BP 111/60; PULSE 75; RESP 18; TEMP 98.3
--- NOTE | 2023-09-26 14:43 | P.PN ---
Subjective Progress Note Date: 09/08/23 63-year-old gentleman with past medical history significant for coronary artery disease, chronic congestive heart failure with ejection fraction of 30%, hypertension hyperlipidemia diabetes mellitus obesity bipolar disorder cardiomyopathy developmental delay history of nicotine dependence who has been admitted with shortness of breath and lower extremity edema. Patient underwent cardiac catheterization right heart catheterization and intra-aortic balloon pump. * Patient has comorbidities including diabetes mellitus type 2, peripheral arterial disease, bipolar disorder, history of anxiety. * Patient to undergo myocardial revascularization 09/02/2023. * 09/03/23 : Patient admitted to medical ICU. Patient was successfully extubated postprocedure. S/p intra-aortic balloon pump which remains in place through right femoral access. Patient remains on norepinephrine drip, Primacor drip, vasopressin. Bilateral chest tubes remained in place. Followed up by medical ICU and cardiac surgery. Follow-up blood work obtained including WBC 15.2 hemoglobin 9.2 platelet count of 98, serum chemistry sodium 141 potassium 4.7 carbon dioxide 24 BUN 26 creatinine 1.1 blood glucose 118-1 33 * 09/04/23: Patient seen and evaluated in medical ICU room 266, patient continues to remain on Levophed, vasopressin and pressor support. Blood work reviewed WBC 17.7 hemoglobin 9.4 platelet 117. Serum chemistry showed sodium 137 potassium 4.9 carbon dioxide 18 BUN 34 creatinine 1.52 blood glucose 123. Overnight patient was refusing to participate with care, patient counseled by cardiac surgery team as well. Brother at bedside, patient does follow co mmands, care plan discussed with nursing staff * 09/05/23: Patient seen and evaluated bedside, vitals reviewed blood pressure running in the 90s overnight. Patient remains on 2 L of oxygen. Blood work reviewed CBC shows WBC 14.3 hemoglobin 9.3 platelet 105 serum chemistry sodium 137 potassium 5.2 carbon dioxide 16 BUN 44 creatinine 1.99 total bilirubin 1.3 AST 464 ALT 128 will need to be monitored, p.atient remains lethargic however easily arousable 09/06/2023 -- Patient is seen and evaluated in ICU at bedside Vital signs reviewed and temperature of 97.9, pulse 90, respiration 14 and blood pressure of 110/40 Lab review shows WBC 14.2, hemoglobin of 8.7 and platelet count of 109, sodium 136, potassium 4.8, BUNs/creatinine of 54/2.91; concern about worsening renal fu nction likely related to cardiorenal syndrome; dopamine has been discontinued Chest x-ray reveals atelectasis and bibasilar pleural effusion --Patient remains on pressors and inotropic agents; cardiac index and cardiac output is being monitored closely -Patient remains on Plavix, aspirin, statins and beta-blockers -- Recommended to increase activity 09/07/2023 ---patient is basically about the same, he is now postoperative day #5, sitting at the bedside chair, patient is not motivated what bit remains on multiple inotropes and pressors, patient is receiving dopamine at 2.5 mcg/kg/min dobutamine at 5 mcg/kg/min norepinephrine at 0.06 mcg/kg/min vasopressin at 0.03 units/min and he is also on insulin at 3.5 units/h today he is off milrinone. Chest x-ray showed mostly atelectasis at the bases. No clear-cut evidence of pulmonary edema. Patient is maintained on 2 L nasal cannula, again the patient is doing extremely poorly with incentive spirometry and does not seem to be motivated at all. Renal functioning seems to be getting worse, his BUN is 63 creatinine 3.54, at this rate I am quite concerned with the patient may end up requiring hemodialysis. This is being addressed by nephrology on the case. Liver enzymes are improving Continue pressors and inotropes continue to monitor cardiac index and cardiac output Continue dopamine, continue dobutamine, patient is off milrinone today. However he is still requiring norepinephrine and vasopressin Continue Plavix beta-blockers aspirin and statin Titrate pressors and inotropes as tolerated 09/08/2023 --patient is seen and evaluated with family at bedside; now postoperative day # 6. -- Patient is still requiring dobutamine at 0.5 mcg/kg/min, still requiring vasopressin at 0.02 units/min, his norepinephrine is presently on hold, and milrinone was discontinued. Still on insulin at 3 units/h. -- chest x-ray is showing bibasilar atelectasis and small left pleural effusion with a small right pleural effusion -- WBC count is 6 hemoglobin 8.7 basic metabolic profile is normal except for bicarb of 15 and again worsening renal profile BUN is up to 71 creatinine 4.40 -Renal function continues to worsen; nephrology on board and planning to continue with IV Lasix and oral sodium bicarbonate; plan for possible hemodialysis in a.m. if urine output does not improve 09/09/2023 Patient is awake alert but looks very tired and lethargic lying in chair. No significant chest pain. Patient has average appetite No significant dyspnea but looks very weak Patient required pressors Patient planned and considered for hemodialysis given his worsening renal function today 5.2 compared with 1.5 upon admission He has severe cardiomyopathy with ejection fraction 20 to 25% and currently on aspirin and Plavix and amiodarone drip. Also he required pressors as above, cardiology following closely. 09/10/2023 Patient still lethargic still sitting in chair No much difference clinically from yesterday A plan to undergo hemodialysis today for first-line, hemodialysis catheter in place. Patient is oliguric. He is currently getting dobutamine and insulin drip 3 units/h He is also on aspirin and Plavix and metoprolol 09/11/2023 Patient remains very lethargic No new complaint He remains on dobutamine drip at 2.5 He is getting the third round of hemodialysis today His insulin drip switched to sliding scale and Levemir Continue with dual antiplatelet therapy Labs showing stable hemoglobin 9.5. Platelet 1 28,000 09/12/2023 Patient looks more awake and alert today, he still generally weak sitting up in chair. No chest pain no dyspnea, no other specific complaint he Is getting hemodialysis. Creatinine down to 2.9. Hemoglobin stable, platelet count stable. He was started on Levemir 14 and twice daily yesterday, his sugar was on the low side this morning therefore we are going to lower the dose to Levemir 15 units at bedtime with close monitoring. Started also on sodium bicarb ] I am resuming the care of the patient on 09/16/2022 Patient looks more energetic relaxed and sitting up in bed compared to last week He denies any specific complaint Hobson catheter in place No chest pain or dyspnea He is on ceftriaxone, urine culture growing E. coli. Patient has leukocytosis about 17,000 Also his sugars controlled on Levemir 15 units increased today to 17 units Rest of labs reviewed and they are stable. Creatinine 2.3 and patient had permacath placed yesterday undergoing hemodialysis 09/18/2023 No chest pain no dyspnea No abdominal pain and tolerates diet well He still on ceftriaxone for sensitive E. coli in the urine culture Is on aspirin and Plavix and metoprolol Hemodialysis per nephrology Sugar slightly on the low side so we lowered his Levemir to 15 units daily 09/19/2023 Patient denies chest pain. Denies any other complaint He has average appetite but no abdominal pain and nausea diarrhea Hobson catheter in place. Glucose was low this morning therefore we lowered his Levemir 17 units down to 15 units Continue with dual antiplatelet therapy with aspirin and Plavix and ceftriaxone and amiodarone 09/20/2023 H day patient getting more energetic. Today he is up in bed eating his breakfast. He denies chest pain or dyspnea No other new complaint Patient planned for hemodialysis today 09/21/2023 Patient lying in bed comfortable No new complaints He completed his ceftriaxone which was discontinued, For his UTI. Currently no urinary symptoms He is on aspirin and Plavix sugars controlled 09/22/2023 doing well no chest pain , no dyspnea walk to the restroom with no difficulty Objective - Vital Signs Vital signs: Vital Signs Temp 97.5 F L 09/22/23 15:40 Pulse 73 09/22/23 15:40 Resp 12 09/22/23 15:40 BP 123/82 09/22/23 15:40 Pulse Ox 99 09/22/23 15:40 FiO2 40 09/02/23 20:33 Intake & Output 09/21/23 09/22/23 09/22/23 18:59 06:59 18:59 Intake Total 700 250 Output Total 43 25 5 Balance 657 -25 245 Weight 88.2 kg Intake: IV 150 100 Sodium Ferric Gluconat- 100 100 Sucrose 125 mg In Sodium Chloride 0.9% 100 ml @ 100 mls/hr IVPB DAILY [facility] Rx#:[id number] cefTRIAXone 2 gm In 50 Sodium Chloride 0.9% 50 ml @ 100 mls/hr IVPB Q24HR [facility] Rx#:[id number] Oral 550 150 Output: Urine 43 25 5 Other: Voiding Method Indwelling Catheter Indwelling Catheter Indwelling Catheter # Bowel Movements 1 ABP, PAP, CO, CI - Last Documented Arterial Blood Pressure 83/58 Pulmonary Artery Pressure 45/17 Cardiac Output 3.5 Cardiac Index 2 - Exam -GENERAL: The patient is alert and oriented x3, not in any acute distress. Well developed, well nourished. Lethargic and weak HEENT: Pupils are round and equally reacting to light. EOMI. No scleral icterus. No conjunctival pallor. Normocephalic, atraumatic. No pharyngeal erythema. No thyromegaly. CARDIOVASCULAR: S1 and S2 present. No murmurs, rubs, or gallops. PULMONARY: Chest is clear to auscultation, no wheezing , no crackles. ABDOMEN: Soft, nontender, nondistended, normoactive bowel sounds. No palpable organomegaly. MUSCULOSKELETAL: No joint swelling or deformity. -EXTREMITIES: No cyanosis, clubbing, bilateral pitting leg edema.-follow-up with wound service at the [facility] We recommend close monitoring of this metabolic panel (BMP ) while patient is on Lasix, also monitoring of complete cell count (CBC) NEUROLOGICAL: Gross neurological examination did not reveal any focal deficits. SKIN: No rashes. no petechiae. - Labs CBC & Chem 7: 09/24/23 09:01 09/24/23 09:01 Labs: Abnormal Lab Results - Last 24 Hours (Table) 09/22/23 09/22/23 09/22/23 Range/Units 04:18 04:18 16:06 RBC 2.63 L (4.30-5.90) m/uL Hgb 8.4 L (13.0-17.5) gm/dL Hct 26.4 L (39.0-53.0) % MCV 100.2 H (80.0-100.0) fL RDW 16.6 H (11.5-15.5) % Sodium 134 L (137-145) mmol/L BUN 37 H (9-20) mg/dL Creatinine 3.11 H (0.66-1.25) mg/dL Glucose 130 H (74-99) mg/dL POC Glucose (mg/dL) 128 H (70-110) mg/dL Calcium 8.3 L (8.4-10.2) mg/dL Assessment and Plan Assessment: Acute on chronic systolic ejection of congestive heart failure with ejection fraction worsened 35% down to 25% Cardiogenic shock Acute kidney injury requiring hemodialysis Peripheral vascular disease Hypertension Hyperlipidemia Diabetes mellitus Bipolar disorder Plan: Continue with pressors per press smith helper will follow the clinical case closely Pulmonary/critical care team Continue with insulin Levemir 17 units Continue with amiodarone and aspirin and Plavix On metoprolol Continue with hemodialysis per explosives detonator Several consultants on the case DVT prophylaxis with subcutaneous heparin GI prophylaxis with Protonix Prognosis is guarded
== END 2023-09-24 18:20 | DRG 233 ==
LOC: CATHCVL 08:49 → 3SCARD 09:03 → 2SICU 11:13
PROVIDERS: ADMIT Thoracic Surgery (Cardiothoracic Vascular Surgery); ATTEND Thoracic Surgery (Cardiothoracic Vascular Surgery)
PROC: 5A02210 Assistance with Cardiac Output using Balloon Pump, Continuous (ICD-10-PCS; principal; 2023-09-01 09:00)
PROC: 4A023N6 Measurement of Cardiac Sampling and Pressure, Right Heart, Percutaneous Approach (ICD-10-PCS; principal; 2023-09-01 09:00)
PROC: 30233N1 Transfusion of Nonautologous Red Blood Cells into Peripheral Vein, Percutaneous Approach (ICD-10-PCS; 2023-09-02)
PROC: B24BZZ4 Ultrasonography of Heart with Aorta, Transesophageal (ICD-10-PCS; 2023-09-02 08:00)
PROC: 06BP4ZZ Excision of Right Saphenous Vein, Percutaneous Endoscopic Approach (ICD-10-PCS; 2023-09-02 08:00)
PROC: 5A1221Z Performance of Cardiac Output, Continuous (ICD-10-PCS; 2023-09-02 08:00)
PROC: 02L70CK Occlusion of Left Atrial Appendage with Extraluminal Device, Open Approach (ICD-10-PCS; 2023-09-02 08:00)
PROC: 06BQ4ZZ Excision of Left Saphenous Vein, Percutaneous Endoscopic Approach (ICD-10-PCS; 2023-09-02 08:00)
PROC: 021 Heart and Great Vessels, Bypass (ICD-10-PCS; 2023-09-02 08:00)
PROC: 021009W Bypass Coronary Artery, One Artery from Aorta with Autologous Venous Tissue, Open Approach (ICD-10-PCS; 2023-09-02 08:00)
PROC: 3E043XZ Introduction of Vasopressor into Central Vein, Percutaneous Approach (ICD-10-PCS; 2023-09-02 08:00)
PROC: 06HY33Z Insertion of Infusion Device into Lower Vein, Percutaneous Approach (ICD-10-PCS; 2023-09-09)
PROC: 5A1D70Z Performance of Urinary Filtration, Intermittent, Less than 6 Hours Per Day (ICD-10-PCS; 2023-09-09)
PROC: 3C1ZX8Z Irrigation of Indwelling Device using Irrigating Substance, External Approach (ICD-10-PCS; 2023-09-15)
PROC: 02HV33Z Insertion of Infusion Device into Superior Vena Cava, Percutaneous Approach (ICD-10-PCS; 2023-09-16)
DX: I25.10 Atherosclerotic heart disease of native coronary artery without angina pectoris (principal); I50.23 Acute on chronic systolic (congestive) heart failure; N17.0 Acute kidney failure with tubular necrosis; R57.0 Cardiogenic shock; N18.6 End stage renal disease; K72.00 Acute and subacute hepatic failure without coma; R57.1 Hypovolemic shock; J96.91 Respiratory failure, unspecified with hypoxia; E87.1 Hypo-osmolality and hyponatremia; E87.20 Acidosis, unspecified; N39.0 Urinary tract infection, site not specified; D62 Acute posthemorrhagic anemia; I13.2 Hypertensive heart and chronic kidney disease with heart failure and with stage 5 chronic kidney disease, or end stage renal disease; J98.11 Atelectasis; J93.83 Other pneumothorax; T82.838A Hemorrhage due to vascular prosthetic devices, implants and grafts, initial encounter; F31.9 Bipolar disorder, unspecified; I27.20 Pulmonary hypertension, unspecified; E11.51 Type 2 diabetes mellitus with diabetic peripheral angiopathy without gangrene; E11.22 Type 2 diabetes mellitus with diabetic chronic kidney disease; J44.9 Chronic obstructive pulmonary disease, unspecified; Z68.32 Body mass index [BMI] 32.0-32.9, adult; D69.6 Thrombocytopenia, unspecified; I08.1 Rheumatic disorders of both mitral and tricuspid valves; L89.152 Pressure ulcer of sacral region, stage 2; E66.01 Morbid (severe) obesity due to excess calories; D50.9 Iron deficiency anemia, unspecified; Z53.8 Procedure and treatment not carried out for other reasons; E78.5 Hyperlipidemia, unspecified; F41.9 Anxiety disorder, unspecified; R62.50 Unspecified lack of expected normal physiological development in childhood; I25.5 Ischemic cardiomyopathy; R33.9 Retention of urine, unspecified; R53.81 Other malaise; R34 Anuria and oliguria; B96.20 Unspecified Escherichia coli [E. coli] as the cause of diseases classified elsewhere; R74.01 Elevation of levels of liver transaminase levels; Z95.5 Presence of coronary angioplasty implant and graft; D72.825 Bandemia; I25.82 Chronic total occlusion of coronary artery; I44.0 Atrioventricular block, first degree; N50.89 Other specified disorders of the male genital organs; Z88.6 Allergy status to analgesic agent; Z91.199 Patient's noncompliance with other medical treatment and regimen due to unspecified reason; Z87.891 Personal history of nicotine dependence; Z79.899 Other long term (current) drug therapy; Z79.84 Long term (current) use of oral hypoglycemic drugs
CPT/HCPCS: 33967; 71045; 76604; 76770; 76937; 77001; 80048; 80053; 80061; 80074; 81001; 81003; 82330; 82550; 82728; 82805; 82810; 83036; 83540; 83550; 83605; 83735; 84100; 84132; 84134; 84443; 85018; 85025; 85027; 85384; 85610; 85730; 86706; 86850; 86891; 86900; 86901; 86920; 87070; 87077; 87086; 87186; 90935; 93306; 93456; 94002; 94150; 94640

== ENCOUNTER 2024-11-16 14:23 | Inpatient (IN) | payer MEDICARE, OTHER ==
[2024-11-16 15:38] LABS: Basophils # (A) 0.03 10*3/uL (0.00-0.10); Basophils % (A) 0.4 %; Eosinophils # (A) 0.17 10*3/uL (0.04-0.35); Eosinophils % (A) 2.4 %; HCT 36.5 % (39.6-50.0); HGB 11.8 g/dL (13.0-17.0); Lymphocytes % (A) 11.5 %; MCH 32.2 pg (27.0-32.0); MCHC 32.3 g/dL (32.0-37.0); MCV 99.5 fL (80.0-97.0); Mean Platelet Volume 9.3 fL (9.5-12.2); Monocytes # (A) 0.51 10*3/uL (0.20-1.00); Monocytes % (A) 7.3 %; Neutrophils # (A) 5.45 10*3/uL (1.80-7.70); Neutrophils % (A) 78.3 %; Platelet Count 138 10*3/uL (140-440); RBC 3.67 10*6/uL (4.40-5.60); RDW 15.2 % (11.5-14.5); WBC 6.97 10*3/uL (4.50-10.00)
[2024-11-16 15:48] LABS: INR 1.1 (<1.2); Partial Thromboplastin Time 25.3 sec (22.0-30.0); Prothrombin Time 11.6 sec (10.0-12.5)
[2024-11-16 15:54] LABS: Glucose 142 mg/dL (74-99); Sodium 136 mmol/L (137-145)
[2024-11-16 15:55] LABS: ALT 24 U/L (4-49); African American GFR (CKD) >90 (>60 ml/min/1.73 sqM); Albumin 4.5 g/dL (3.5-5.0); Anion Gap 9 mmol/L; Blood Urea Nitrogen 34 mg/dL (9-20); Calcium 9.2 mg/dL (8.4-10.2); Carbon Dioxide 26 mmol/L (22-30); Chloride 101 mmol/L (98-107); Non-African American GFR(CKD) >90 (>60 ml/min/1.73 sqM); Total Bilirubin 1.6 mg/dL (0.2-1.3); Total Protein 7.5 g/dL (6.3-8.2)
[2024-11-16 15:58] LABS: AST 28 U/L (17-59); Alkaline Phosphatase 164 U/L (38-126); Potassium 5.2 mmol/L (3.5-5.1)
[2024-11-16 15:59] LABS: Magnesium 2.5 mg/dL (1.6-2.3); NT-Pro-B-Type Natriuretic Pept 21100 pg/mL
--- NOTE | 2024-11-16 16:04 | XR ---
EXAMINATION TYPE: XR chest 2V DATE OF EXAM: 11/16/2024 3:57 PM COMPARISON: Multiple radiographs, with the most recent on 01/06/2024 TECHNIQUE: XR chest 2V Frontal and lateral views of the chest. CLINICAL INDICATION:Male, 64 years old with history of difficulty breathing; FINDINGS: Lungs/Pleura: There is no evidence of pleural effusion, focal consolidation, or pneumothorax. Pulmonary vascularity: Mild pulmonary vascular congestion. Heart/mediastinum: Cardiomediastinal silhouette is enlarged and stable. Left atrial appendage occlusi on devices present. Musculoskeletal: No acute osseous pathology. Midline sternotomy wires are noted and stable. IMPRESSION: Cardiomegaly and mild pulmonary vascular congestion. Correlate with BNP for congestive heart failure. [facility], , 11/16/2024 4:02 PM
--- NOTE | 2024-11-16 16:05 | ED ---
General Adult HPI - General Chief complaint: Extremity Problem,Nontraumatic Stated complaint: Timothy leg swelling Time Seen by Provider: 11/16/24 15:02 Source: patient, RN notes reviewed, old records reviewed Mode of arrival: wheelchair Limitations: no limitations - History of Present Illness Initial comments: Patient is a 64-year-old male presents emergency department complaining of worsening lower extremity edema. Also endorses some mild worsening exertional dyspnea as well as some mild PND where he breathes more heavily at night. Denies any worsening orthopnea. States is similar to when he has required admission for increased diuresis in the past. Denies any significant productive cough or cough. Denies fevers or chills. Denies chest pain. Denies abdominal pain but does endorse a more distended abdomen. Denies any nausea or vomiting. Has no other acute complaints this time. States he is compliant with his medications. Past medical history includes CAD, heart failure, diabetes, hypertension, hyperlipidemia. History of CABG as well. Presents for further evaluation at this time.Symptoms have been ongoing for approximately 1 week and have been progressive over that period of time. States he is compliant with all medications. - Related Data Home Medications Medication Instructions Recorded Confirmed DULoxetine HCL [Cymbalta] 60 mg PO DAILY 08/28/23 08/28/23 Empagliflozin [Jardiance] 10 mg PO DAILY 08/28/23 08/28/23 busPIRone HCL 15 mg PO BID 08/28/23 08/28/23 Previous Rx's Medication Instructions Recorded Acetaminophen Tab [Tylenol] 650 mg PO Q4HR PRN tab 09/24/23 Aspirin 81 mg PO DAILY tab 09/24/23 Atorvastatin [Lipitor] 40 mg PO DAILY tab 09/24/23 Benzocaine/Menthol Lozeng [Cepacol 1 each MUCOUS MEM Q2H PRN lozenge 09/24/23 lozenge] Clopidogrel [Plavix] 75 mg PO DAILY tab 09/24/23 Darbepoetin Con [Aranesp] 40 mcg SQ Q7D each 09/24/23 Ferrous Sulfate [Feosol] 325 mg PO DAILY #30 tab 09/24/23 Heparin Sodium,Porcine (1 ml) 5,000 unit SQ Q8HR each 09/24/23 [Heparin Sodium] INSULIN ASPART (NovoLOG) [NovoLOG 0 unit SQ ACHS each 09/24/23 (formulary)] Insulin Detemir (Levemir) [Levemir] 15 unit SQ HS each 09/24/23 Ipratropium-Albuterol Nebulize 3 ml INHALATION RT-Q2H PRN each 09/24/23 [Duoneb 0.5 mg-3 mg/3 ml Soln] Ipratropium-Albuterol Nebulize 3 ml INHALATION RT-QID each 09/24/23 [Duoneb 0.5 mg-3 mg/3 ml Soln] Metoprolol Tartrate [Lopressor] 12.5 mg PO BID tab 09/24/23 Midodrine [ProAmatine] 5 mg PO AC-TID tab 09/24/23 Pantoprazole [Protonix] 40 mg PO AC-BRKFST tab 09/24/23 Sennosides-Docusate Sodium 2 each PO HS tab 09/24/23 [Senokot-S] bisacodyL [Dulcolax] 10 mg RECTAL DAILY PRN suppositor 09/24/23 Allergies Allergy/AdvReac Type Severity Reaction Status Date / Time ibuprofen Allergy Unknown Verified 11/16/24 14:45 Review of Systems ROS Statement: Those systems with pertinent positive or pertinent negative responses have been documented in the HPI. Review of Systems: CONST: Denies fever EYES: Denies blurry vision ENT: Denies nasal congestion C/V: Denies Chest pain RESP: Worsens exertional shortness of breath GI: Denies abdominal pain : Denies dysuria SKIN: Denies rash. MSK: Endorses lower extremity swelling NEURO: Denies headache ROS Other: All systems not noted in ROS Statement are negative. Past Medical History Past Medical History: Coronary Artery Disease (CAD), Heart Failure, Diabetes Mellitus, Hyperlipidemia, Hypertension Additional Past Medical History / Comment(s): chronic systolic heart failure,cardiomyapathy,timothy cataracts History of Any Multi-Drug Resistant Organisms: None Reported Past Surgical History: Heart Catheterization Additional Past Surgical History / Comment(s): Previous foot and wrist surgery Past Anesthesia/Blood Transfusion Reactions: No Reported Reaction Additional Past Anesthesia/Blood Transfusion Reaction / Comment(s): no known hx blood transfusion Past Psychological History: Anxiety, Bipolar Smoking Status: Former smoker - Past Family History Mother Family Medical History: COPD, Pneumonia Brother(s) Family Medical History: COPD General Exam - General Exam Comments Initial Comments: General: Appears in no acute distress. HEAD: Normal with no signs of head trauma. EYES: PERRLA, EOMI, conjunctiva normal, no discharge. ENT: Hearing grossly intact, normal oropharynx. RESPIRATORY: Mildly coarse breath sounds bilaterally. No hypoxia. No significant increased work of breathing at rest. C/V: Regular rate and rhythm. S1 and S2 auscultated, nephric and bilateral lower extremity symmetrical pitting edema, peripheral pulses 2+ and intact throughout ABD: Abdomen is mildly distended. Nontender. No guarding. No rebound tenderness. No peritoneal signs. EXT: Normal range of motion, no obvious deformity SKIN: No rashes or lesions observed on exposed skin. NEURO: Alert and oriented x 4. Limitations: no limitations Course Vital Signs 11/16/24 14:31 Temperature 99 F Pulse Rate 83 Respiratory 18 Rate Blood Pressure 133/78 O2 Sat by Pulse 97 Oximetry Medical Decision Making - Medical Decision Making Was pt. sent in by a medical professional or institution (, PA, CUSTOMER CONSULTANT, urgent care, hospital, or fci...) When possible be specific @ -No Did you speak to anyone other than the patient for history (EMS, parent, family, police, friend...)? What history was obtained from this source @ -No Did you review nursing and triage notes (agree or disagree)? Why? @ -I reviewed and agree with nursing and triage notes Were old charts reviewed (outside hosp., previous admission, EMS record, old EKG, old radiological studies, urgent care reports/EKG's, fci records)? Report findings @ -Reviewed old chart from August 2023 and patient was seen by cardiology and had a CABG. Echo from that time shows ejection fraction of 20 to 25%. Differential Diagnosis (chest pain, altered mental status, abdominal pain women, abdominal pain men, vaginal bleeding, weakness, fever, dyspnea, syncope, headache, dizziness, GI bleed, back pain, seizure, CVA, palpatations, mental health, musculoskeletal)? @ -Differential Dyspnea: Coronary syndrome, arrhythmia, tamponade, asthma, COPD, pulmonary embolism, pneumonia, pneumothorax, pulmonary effusion, anaphylaxis, diabetic ketoacidosis, flailed chest, pulmonary contusion, diaphragmatic rupture, anemia, neuromuscular, this is not meant to be an all-inclusive list. EKG interpreted by me (3pts min.). @ -As above X-rays interpreted by me (1pt min.). @ -Chest x-ray shows bilateral pulmonary vascular congestion. CT interpreted by me (1pt min.). @ -None done U/S interpreted by me (1pt. min.). @ -None done What testing was considered but not performed or refused? (CT, X-rays, U/S, labs)? Why? @ -None What meds were considered but not given or refused? Why? @ -None Did you discuss the management of the patient with other professionals (professionals i.e. , PA, CUSTOMER CONSULTANT, lab, RT, psych nurse, social work nurse, river transportation worker, teacher, special weapons and tactics officer, medical case worker)? Give summary @ -Discussed with Dr. Workman of [facility] who accepted the admission. Was smoking cessation discussed for >3mins.? @ -No Was critical care preformed (if so, how long)? @ -No Were there social determinants of health that impacted care today? How? (Home lessness, low income, unemployed, alcoholism, drug addiction, transportation, low edu. Level, literacy, decrease access to med. care, long term, rehab)? @ -No Was there de-escalation of care discussed even if they declined (Discuss DNR or withdrawal of care, Hospice)? DNR status @ -No What co-morbidities impacted this encounter? (DM, HTN, Smoking, COPD, CAD, Cancer, CVA, ARF, Chemo, Hep., AIDS, mental health diagnosis, sleep apnea, morbid obesity)? @ -CABG, CAD, CHF Was patient admitted / discharged? Hospital course, mention meds given and route, prescriptions, significant lab abnormalities, going to OR and other pertinent info. @ -Patient presents emergency department complaining of what seems to be CHF exacerbation. We will obtain chest x-ray, labs, EKG. He was in agreement this plan. Vitals are within acceptable limits. Labs are remarkable for elevated BNP of 21,000. EKG shows no signs of acute ischemia. Patient has a hemolyzed potassium of 5.2 however renal function is normal. We will continue to monitor. No signs of EKG changes to suggest hyperkalemia. Chest x-ray shows bilateral pulmonary vascular congestion. On reevaluation, I discussed results with patient. He will be initiated on IV Lasix 40 mg twice daily and given a dose now. Will be admitted to the hospital. Cardiology will be consulted. He was in agreement this plan. Discussed with Dr. Workman of [facility] who accepted the admission. Undiagnosed new problem with uncertain prognosis? @ -No Drug Therapy requiring intensive monitoring for toxicity (Heparin, Nitro, Insulin, Cardizem)? @ -No Were any procedures done? @ -No Diagnosis/symptom? @ -CHF exacerbation Acute, or Chronic, or Acute on Chronic? @ -Acute Uncomplicated (without systemic symptoms) or Complicated (systemic symptoms)? @ -Complicated Side effects of treatment? @ -No Exacerbation, Progression, or Severe Exacerbation? @ -Exacerbation Poses a threat to life or bodily function? How? (Chest pain, USA, PR, pneumonia, PE, COPD, DKA, ARF, appy, cholecystitis, CVA, Diverticulitis, Homicidal, Suicidal, threat to staff... and all critical care pts) @ -Potentially, yes - Lab Data Result diagrams: 11/16/24 15:21 11/16/24 15:21 Lab Results 11/16/24 11/16/24 11/16/24 Range/Units 15:21 15:21 15:21 WBC 6.97 (4.50-10.00) 10*3/uL RBC 3.67 L (4.40-5.60) 10*6/uL Hgb 11.8 L (13.0-17.0) g/dL Hct 36.5 L (39.6-50.0) % MCV 99.5 H (80.0-97.0) fL MCH 32.2 H (27.0-32.0) pg MCHC 32.3 (32.0-37.0) g/dL Plt Count 138 L (140-440) 10*3/uL MPV 9.3 L (9.5-12.2) fL Immature Gran % (Auto) 0.1 % Neutrophils % 78.3 % Lymphocytes % 11.5 % Monocytes % 7.3 % Eosinophils % 2.4 % Basophils % 0.4 % Immature Gran # 0.01 (0.00-0.04) 10*3/uL Neutrophils # 5.45 (1.80-7.70) 10*3/uL Lymphocytes # 0.80 L (0.90-5.00) 10*3/uL Monocytes # 0.51 (0.20-1.00) 10*3/uL Eosinophils # 0.17 (0.04-0.35) 10*3/uL Basophils # 0.03 (0.00-0.10) 10*3/uL PT 11.6 (10.0-12.5) sec INR 1.1 (<1.2) APTT 25.3 (22.0-30.0) sec Sodium 136 L (137-145) mmol/L Potassium 5.2 H (3.5-5.1) mmol/L Chloride 101 (98-107) mmol/L Carbon Dioxide 26 (22-30) mmol/L Anion Gap 9 mmol/L BUN 34 H (9-20) mg/dL Creatinine 0.89 (0.66-1.25) mg/dL Est GFR (CKD-EPI)AfAm >90 (>60 ml/min/1.73 sqM) Est GFR (CKD-EPI)NonAf >90 (>60 ml/min/1.73 sqM) Glucose 142 H (74-99) mg/dL Calcium 9.2 (8.4-10.2) mg/dL Magnesium 2.5 H (1.6-2.3) mg/dL Total Bilirubin 1.6 H (0.2-1.3) mg/dL AST 28 (17-59) U/L ALT 24 (4-49) U/L Alkaline Phosphatase 164 H (38-126) U/L NT-Pro-B Natriuret Pep 84644 pg/mL Total Protein 7.5 (6.3-8.2) g/dL Albumin 4.5 (3.5-5.0) g/dL - EKG Data -: EKG Interpreted by Me EKG Comments: 12-lead Electrocardiogram Interpretation Note EKG was reviewed and interpreted by myself. 12-lead ECG performed at 1507 is interpreted by me as revealing normal sinus rhythm at a rate of 77 beats per minute. Left axis deviation. AR interval is 204 ms, QRS durations 129 ms, QTc is 406 ms.. There were no ST or T wave abnormalities to suggest myocardial ischemia or injury. R wave progression across the precordium was satisfactory. By my interpretation this EKG is non-diagnostic for acute ischemia. Disposition Clinical Impression: CHF exacerbation Disposition: ADMITTED IP TO THIS [facility] Condition: Stable Referrals: Rl Chang MD [Primary Care Provider] - 1-2 days Time of Disposition: 16:28
[2024-11-16] MEDS ORDERED: NALOXONE 0.4 MG/ML 1 ML VIAL IV PRN (16:17)
[2024-11-16] MEDS: FUROSEMIDE 10 MG/ML 4 ML VIAL IV STA (17:10)
[2024-11-16] MEDS ORDERED: clonazePAM 0.5 MG TAB PO PRN (17:37)
[2024-11-16] MEDS ORDERED: IPRATROPIUM-ALBUTEROL 3 ML NEB INHALATION PRN (17:37)
[2024-11-16] MEDS ORDERED: DEXTROSE 50% SYRINGE 50 ML IVP PRN ×2 (17:39)
--- NOTE | 2024-11-16 17:41 | P.HPIM ---
History of Present Illness H&P Date: 11/16/24 64 year old M with PMH of CAD with history of CABG, Anxiety and Depression, DM presents to the ED for LE swelling and exertional SOB. Symptoms progressively getting worse. Auxiliary Equipment Tender is Dr. Monreal. Does not follow a low salt diet. Drinks 1.5L of water daily along with 1.5L of pop daily. Reports constipation. Denies any headache, N/V, fever or chills, cough, chest pain, palpitations, changes in urination. Denies dizziness, numbness/weakness/tinging of the extremities. In the ED he underwent extensive evaluation. BP 133/78, HR 83, T 99F, RR 18, 97% on RA. CBC, Coag panel, CMP significant for RBC 3.67, Hg 11.8, Hct 36.5, Plt 138, Na 136, K 5.2, BUN 34, glu 142, T. Bili 1.6, alk phos 164. [place] P [address]. Mag 2.5. EKG sinus rhythm with no ST T wave changes. CXR shows pulmonary vascular congestion. Patient is admitted for CHF exacerbation. General: no distress, appears at stated age Derm: warm, dry Head: atraumatic, normocephalic, symmetric Mouth: no lip lesion, mucus membranes moist Cardiovascular: S1 S2 reg. No murmur. Lungs: Decreased BS bilaterally, no accessory muscle use Ext: no gross muscle atrophy, 2-3+ pitting LE edema, no contractures Neuro: No focal neurologic deficits. Psych: Alert and oriented. Based on my assessment of this patient, this patient meets a high complexity level of care. Acute on chronic systolic CHF exacerbation: EF 20-25% 08/2023. Start Lasix 40 mg IV BID (monitor renal function and elytes). Strict intake and outtake. Daily weights. Repeat Echo. Jardiance 10 mg PO QD. Lisinopril 5 mg PO QD. Metoprolol 25 mg PO QD. Cardiology consult. Hyperbilirubinemia: Likely hepatic congestion. Repeat CMP in the AM. Hyperkalemia: Hemolyzed. CAD with history of CABG: ASA 81 mg PO QD. Lipitor 40 mg PO QD. Anxiety and Depression: Buspar 15 mg PO BID. Cymbalta 60 mg PO BID. Klonopin 0.5 mg PO BID PRN. DM: ISS with accuchecks ACHS along with hypoglycemic precautions. Macrocytosis: B12 and Folate ordered. CODE STATUS: FULL CODE DVT Prophylaxis: Lovenox SQ. GI Prophylaxis: Designated medical POA if patient is not able to make medical decisions for themselves: I have reviewed the following advertising consultant notes: ED note. I have reviewed the results of the following tests: As above. I have ordered the following tests: As above. I have discussed the care of this patient with the following independent historian: RN. Bishop at bedside. I have independently interpreted the following test below: I have discussed the management of this patient with the following physician: ED physician. Past Medical History Past Medical History: Coronary Artery Disease (CAD), Heart Failure, Diabetes Mellitus, Hyperlipidemia, Hypertension Additional Past Medical History / Comment(s): chronic systolic heart failure,cardiomyapathy,rush cataracts History of Any Multi-Drug Resistant Organisms: None Reported Past Surgical History: Heart Catheterization Additional Past Surgical History / Comment(s): Previous foot and wrist surgery Past Anesthesia/Blood Transfusion Reactions: No Reported Reaction Additional Past Anesthesia/Blood Transfusion Reaction / Comment(s): no known hx blood transfusion Past Psychological History: Anxiety, Bipolar Smoking Status: Former smoker - Past Family History Mother Family Medical History: COPD, Pneumonia Brother(s) Family Medical History: COPD Medications and Allergies Home Medications Medication Instructions Recorded Confirmed Type DULoxetine HCL [Cymbalta] 60 mg PO DAILY 08/28/23 08/28/23 History Empagliflozin [Jardiance] 10 mg PO DAILY 08/28/23 08/28/23 History busPIRone HCL 15 mg PO BID 08/28/23 08/28/23 History Acetaminophen Tab [Tylenol] 650 mg PO Q4HR PRN tab 09/24/23 Rx Aspirin 81 mg PO DAILY tab 09/24/23 Rx Atorvastatin [Lipitor] 40 mg PO DAILY tab 09/24/23 Rx Benzocaine/Menthol Lozeng [Cepacol 1 each MUCOUS MEM Q2H PRN lozenge 09/24/23 Rx lozenge] Clopidogrel [Plavix] 75 mg PO DAILY tab 09/24/23 Rx Darbepoetin Con [Aranesp] 40 mcg SQ Q7D each 09/24/23 Rx Ferrous Sulfate [Feosol] 325 mg PO DAILY #30 tab 09/24/23 Rx Heparin Sodium,Porcine (1 ml) 5,000 unit SQ Q8HR each 09/24/23 Rx [Heparin Sodium] INSULIN ASPART (NovoLOG) [NovoLOG 0 unit SQ ACHS each 09/24/23 Rx (formulary)] Insulin Detemir (Levemir) [Levemir] 15 unit SQ HS each 09/24/23 Rx Ipratropium-Albuterol Nebulize 3 ml INHALATION RT-Q2H PRN each 09/24/23 Rx [Duoneb 0.5 mg-3 mg/3 ml Soln] Ipratropium-Albuterol Nebulize 3 ml INHALATION RT-QID each 09/24/23 Rx [Duoneb 0.5 mg-3 mg/3 ml Soln] Metoprolol Tartrate [Lopressor] 12.5 mg PO BID tab 09/24/23 Rx Midodrine [ProAmatine] 5 mg PO AC-TID tab 09/24/23 Rx Pantoprazole [Protonix] 40 mg PO AC-BRKFST tab 09/24/23 Rx Sennosides-Docusate Sodium 2 each PO HS tab 09/24/23 Rx [Senokot-S] bisacodyL [Dulcolax] 10 mg RECTAL DAILY PRN suppositor 09/24/23 Rx Allergies Allergy/AdvReac Type Severity Reaction Status Date / Time ibuprofen Allergy Unknown Verified 11/16/24 14:45 Physical Exam Vitals: Vital Signs Temp Pulse Resp BP Pulse Ox 11/16/24 14:31 99 F 83 18 133/78 97 Intake and Output 11/16/24 11/16/24 11/16/24 06:59 14:59 22:59 Other: Weight 68.039 kg Results CBC & Chem 7: 11/16/24 15:21 11/16/24 15:21 Labs: Abnormal Lab Results - Last 24 Hours (Table) 11/16/24 11/16/24 Range/Units 15:21 15:21 RBC 3.67 L (4.40-5.60) 10*6/uL Hgb 11.8 L (13.0-17.0) g/dL Hct 36.5 L (39.6-50.0) % MCV 99.5 H (80.0-97.0) fL MCH 32.2 H (27.0-32.0) pg Plt Count 138 L (140-440) 10*3/uL MPV 9.3 L (9.5-12.2) fL Lymphocytes # 0.80 L (0.90-5.00) 10*3/uL Sodium 136 L (137-145) mmol/L Potassium 5.2 H (3.5-5.1) mmol/L BUN 34 H (9-20) mg/dL Glucose 142 H (74-99) mg/dL Magnesium 2.5 H (1.6-2.3) mg/dL Total Bilirubin 1.6 H (0.2-1.3) mg/dL Alkaline Phosphatase 164 H (38-126) U/L
[2024-11-16] MEDS: FUROSEMIDE 10 MG/ML 4 ML VIAL IV SCH (22:11)
[2024-11-16] MEDS: DULoxetine HCL 60 MG CAPSULE.DR PO SCH (22:12)
[2024-11-16] MEDS: busPIRone HCl 5 MG TAB PO SCH (22:12)
[2024-11-16] MEDS: INSULIN LISPRO (HumaLOG) 100 UNIT/ML 10 mL VL SQ SCH (22:12)
[2024-11-16 22:38] LABS: Glucose,Whole Blood 141 mg/dL (70-110)
[2024-11-17] MEDS ORDERED: HEPARIN SODIUM,PORCINE 5,000 UNIT/ML 1 ML VIAL SQ SCH
[2024-11-17 08:16] LABS: Basophils # (A) 0.04 X 10*3/uL (0.00-0.10); Basophils % (A) 0.5 %; Eosinophils # (A) 0.18 X 10*3/uL (0.04-0.35); Eosinophils % (A) 2.4 %; HCT 34.4 % (39.6-50.0); HGB 10.8 g/dL (13.0-17.0); Lymphocytes # (A) 0.61 X 10*3/uL (0.90-5.00); Lymphocytes % (A) 8.1 %; MCH 31.9 pg (27.0-32.0); MCHC 31.4 g/dL (32.0-37.0); MCV 101.5 FL (80.0-97.0); Mean Platelet Volume 9.8 FL (9.5-12.2); Monocytes # (A) 0.64 X 10*3/uL (0.20-1.00); Monocytes % (A) 8.5 %; NRBC Per 100 WBC 0 X 10*3/uL (0.00-0.01); Neutrophils # (A) 6.01 X 10*3/uL (1.80-7.70); Neutrophils % (A) 80.2 %; Platelet Count 142 X 10*3/uL (140-440); RBC 3.39 X 10*6/uL (4.40-5.60); RDW 15.6 % (11.5-14.5)
[2024-11-17 09:03] LABS: ALT 23 U/L (10-49); AST 25 U/L (14-35); Albumin 3.9 g/dL (3.8-4.9); Albumin/Globulin Ratio 1.34 Ratio (1.60-3.17); Alkaline Phosphatase 166 U/L (41-126); Blood Urea Nitrogen 32.4 mg/dL (9.0-27.0); Calcium 8.8 mg/dL (8.7-10.3); Carbon Dioxide 24.3 mmol/L (21.6-31.8); Chloride 100 mmol/L (96-109); Globulin 2.9 g/dL (1.6-3.3); Glucose 128 mg/dL (70-110); Potassium 5.1 mmol/L (3.5-5.5); Sodium 137 mmol/L (135-145); Total Bilirubin 1.1 mg/dL (0.3-1.2); Total Protein 6.8 g/dL (6.2-8.2)
[2024-11-17] MEDS: ATORVASTATIN 40 MG TAB PO SCH (09:32)
[2024-11-17] MEDS: ASPIRIN 81 MG PO SCH (09:32)
[2024-11-17] MEDS: DAPAGLIFLOZIN PROPANEDIOL 5 MG TABLET PO SCH (09:32)
[2024-11-17] MEDS: lisinopriL 5 MG TAB PO SCH (09:33)
[2024-11-17] MEDS: LORATADINE 10 MG TAB PO SCH (09:33)
[2024-11-17] MEDS: ENOXAPARIN 40 MG/0.4 ML SYRINGE SQ SCH (09:33)
[2024-11-17] MEDS: METOPROLOL SUCCINATE (ER) 25 MG TAB.ER.24H PO SCH (09:33)
[2024-11-17 11:51] LABS: Glucose,Whole Blood 155 mg/dL (70-110)
--- NOTE | 2024-11-17 12:01 | CA ---
Transthoracic Echo Report Name: Wes Burgess Age: 64 Gender: M : 1960 Exam Date: 11/17/2024 09:02 Exam Location: [facility] Ht (in): 61 Wt (lb): 150 Ordering Physician: Morris Lamb MD Attending/Referring Phys: Color Checker Fariha Oviedo RDCS Procedure CPT: Indications: chf Cardiac Hx: Technical Quality: Fair Contrast 1: Definity Total Dose (mL): 2 Contrast 2: Total Dose (mL): MEASUREMENTS (Male / Female) Normal Values 2D ECHO LV Diastolic Diameter PLAX 4.8 cm 4.2 - 5.9 / 3.9 - 5.3 cm LV Systolic Diameter PLAX 4.1 cm IVS Diastolic Thickness 1.2 cm 0.6 - 1.0 / 0.6 - 0.9 cm LVPW Diastolic Thickness 1.4 cm 0.6 - 1.0 / 0.6 - 0.9 cm LV Relative Wall Thickness 0.6 RV Internal Dim ED PLAX 2.8 cm LVOT Diameter 1.8 cm LA Systolic Diameter LX 4.7 cm 3.0 - 4.0 / 2.7 - 3.8 cm LV Diastolic Volume MOD BP 131.9 cm??? 67 - 155 / 56 - 104 cm??? LV Systolic Volume MOD BP 82.5 cm??? 22 - 58 / 19 - 49 cm??? LV Ejection Fraction MOD BP 37.4 % >= 55 % LV Cardiac Index MOD BP 2137.3 cm???/min???m??? LV Diastolic Volume MOD 4C 110.7 cm??? LV Systolic Volume MOD 4C 76.5 cm??? LV Ejection Fraction MOD 4C 30.8 % LV Cardiac Index MOD 4C 1476.9 cm???/min???m??? LV Diastolic Length 4C 8.4 cm LV Systolic Length 4C 7.9 cm LV Diastolic Volume MOD 2C 145.4 cm??? LV Systolic Volume MOD 2C 79.3 cm??? LV Ejection Fraction MOD 2C 45.4 % LV Cardiac Index MOD 2C 2856.6 cm???/min???m??? LV Diastolic Length 2C 9.1 cm LV Systolic Length 2C 8.9 cm LA Volume 73.3 cm??? 18 - 58 / 22 - 52 cm??? LA Volume Index 42.3 cm???/m??? 16 - 28 cm???/m??? M-MODE Aortic Root Diameter MM 3.4 cm LA Systolic Diameter MM 3.4 cm LA Ao Ratio MM 1.0 AV Cusp Separation MM 2.0 cm DOPPLER AV Peak Velocity 112.0 cm/s AV Peak Gradient 5.0 mmHg MV Area PHT 3.2 cm??? Mitral E Point Velocity 83.1 cm/s Mitral A Point Velocity 57.2 cm/s Mitral E to A Ratio 1.5 MV Deceleration Time 234.1 ms TR Peak Velocity 291.5 cm/s TR Peak Gradient 34.0 mmHg Right Atrial Pressure 20.0 mmHg Pulmonary Artery Systolic Pressu 54.0 mmHg Right Ventricular Systolic Press 54.0 mmHg FINDINGS Left Ventricle Left ventricular ejection fraction is estimated at 20-25%. Severe global hypokinesis.left ventricular cavity size normal. Mildly increased left ventricular wall thickness. Right Ventricle Moderate right ventricular dilatation. Moderate pulmonary hypertension. Right Atrium Moderate right atrial dilatation. Left Atrium Severe left atrial dilatation. Mitral Valve Structurally normal mitral valve. Moderate mitral regurgitation. No mitral stenosis. Aortic Valve Trileaflet aortic valve. Thickened aortic valve without stenosis. No aortic regurgitation. Tricuspid Valve Annular dilatation of the tricuspid valve. Severe tricuspid regurgitation. No tricuspid stenosis. Pulmonic Valve Structurally normal pulmonic valve. Mild pulmonic regurgitation. No pulmonic stenosis. Pericardium No pericardial effusion. Left pleural effusion. Aorta Normal size aortic root and proximal ascending aorta. CONCLUSIONS 1. Severely impaired left ventricular systolic function 2. Moderate mitral regurgitation 3. Severe tricuspid regurgitation with moderate pulmonary hypertension Definity ECHO contrast used for improved visualization of the endocardial borders (inadequate visualization of two or more contiguous segments). Previewed by: Dr. Tutu Gallegos MD (Electronically Signed) Final Date: 17 November 2024 12:00
--- NOTE | 2024-11-17 14:06 | P.PN ---
Subjective Progress Note Date: 11/17/24 64 year old M with PMH of CAD with history of CABG, Anxiety and Depression, DM presents to the ED for LE swelling and exertional SOB. Symptoms progressively getting worse. Bone Tender is Dr. Monreal. Does not follow a low salt diet. Drinks 1.5L of water daily along with 1.5L of pop daily. Reports constipation. Denies any headache, N/V, fever or chills, cough, chest pain, palpitations, changes in urination. Denies dizziness, numbness/weakness/tinging of the extremities. In the ED he underwent extensive evaluation. BP 133/78, HR 83, T 99F, RR 18, 97% on RA. CBC, Coag panel, CMP significant for RBC 3.67, Hg 11.8, Hct 36.5, Plt 138, Na 136, K 5.2, BUN 34, glu 142, T. Bili 1.6, alk phos 164. BNP 75857. Mag 2.5. EKG sinus rhythm with no ST T wave changes. CXR shows pulmonary vascular congestion. Patient is admitted for CHF exacerbation. 11/17 Patient was seen and examined. Improved swelling and breathing. On Lasix 40 mg IV BID. Echo shows ED 20-25%, mod MR, severe TR. CBC and CMP significant for RBC 3.39, Hg 10.8, Hct 34.4, MCV 101.5, AG 12.7, BUN 32.4, glu 128, alk phos 166. B12 633. Folate 13.3. General: no distress, appears at stated age Derm: warm, dry Head: atraumatic, normocephalic, symmetric Mouth: no lip lesion, mucus membranes moist Cardiovascular: S1 S2 reg. + murmur. Lungs: Decreased BS bilaterally, no accessory muscle use Ext: no gross muscle atrophy, 2+ pitting LE edema, no contractures Neuro: No focal neurologic deficits. Psych: Alert and oriented. Based on my assessment of this patient, this patient meets a high complexity level of care. Acute on chronic systolic CHF exacerbation: EF 20-25% 08/2023. Continue Lasix 40 mg IV BID (monitor renal function and elytes). Strict intake and outtake. Daily weights. Jardiance 10 mg PO QD. Lisinopril 5 mg PO QD. Metoprolol 25 mg PO QD. Cardiology consult. Prerenal azotemia: Monitor renal function while on Lasix IV. CAD with history of CABG: ASA 81 mg PO QD. Lipitor 40 mg PO QD. Anxiety and Depression: Buspar 15 mg PO BID. Cymbalta 60 mg PO BID. Klonopin 0.5 mg PO BID PRN. DM: ISS with accuchecks ACHS along with hypoglycemic precautions. Macrocytosis: B12 and Folate within normal limits. Resolved: Hyperbilirubinemia, HyperK CODE STATUS: FULL CODE DVT Prophylaxis: Lovenox SQ. GI Prophylaxis: Designated medical POA if patient is not able to make medical decisions for themselves: I have reviewed the following group segment consultant notes: I have reviewed the results of the following tests: CBC, CMP, Echo. I have ordered the following tests: BMP in the AM. I have discussed the care of this patient with the following independent historian: I have independently interpreted the following test below: I have discussed the management of this patient with the following physician: Objective - Vital Signs Vital signs: Vital Signs Temp 97.9 F 11/17/24 08:00 Pulse 71 11/17/24 08:00 Resp 18 11/17/24 08:00 BP 120/66 11/17/24 08:00 Pulse Ox 90 L 11/17/24 12:47 FiO2 Intake & Output 11/16/24 11/17/24 11/17/24 18:59 06:59 18:59 Weight 68.039 kg 83.7 kg - Labs CBC & Chem 7: 11/17/24 02:42 11/17/24 02:42 Labs: Abnormal Lab Results - Last 24 Hours (Table) 11/16/24 11/16/24 11/16/24 Range/Units 15:21 15:21 22:36 RBC 3.67 L (4.40-5.60) 10*6/uL Hgb 11.8 L (13.0-17.0) g/dL Hct 36.5 L (39.6-50.0) % MCV 99.5 H (80.0-97.0) fL MCH 32.2 H (27.0-32.0) pg MCHC (32.0-37.0) g/dL RDW (11.5-14.5) % Plt Count 138 L (140-440) 10*3/uL MPV 9.3 L (9.5-12.2) fL Lymphocytes # 0.80 L (0.90-5.00) 10*3/uL Sodium 136 L (137-145) mmol/L Potassium 5.2 H (3.5-5.1) mmol/L Anion Gap (4.00-12.00) mmol/L BUN 34 H (9-20) mg/dL BUN/Creatinine Ratio (12.00-20.00) Ratio Glucose 142 H (74-99) mg/dL POC Glucose (mg/dL) 141 H (70-110) mg/dL Magnesium 2.5 H (1.6-2.3) mg/dL Total Bilirubin 1.6 H (0.2-1.3) mg/dL Alkaline Phosphatase 164 H (38-126) U/L Albumin/Globulin Ratio (1.60-3.17) Ratio 11/17/24 11/17/24 11/17/24 Range/Units 02:42 02:42 11:49 RBC 3.39 L (4.40-5.60) 10*6/uL Hgb 10.8 L (13.0-17.0) g/dL Hct 34.4 L (39.6-50.0) % MCV 101.5 H (80.0-97.0) fL MCH (27.0-32.0) pg MCHC 31.4 L (32.0-37.0) g/dL RDW 15.6 H (11.5-14.5) % Plt Count (140-440) 10*3/uL MPV (9.5-12.2) fL Lymphocytes # 0.61 L (0.90-5.00) 10*3/uL Sodium (137-145) mmol/L Potassium (3.5-5.1) mmol/L Anion Gap 12.70 H (4.00-12.00) mmol/L BUN 32.4 H (9-20) mg/dL BUN/Creatinine Ratio 32.40 H (12.00-20.00) Ratio Glucose 128 H (74-99) mg/dL POC Glucose (mg/dL) 155 H (70-110) mg/dL Magnesium (1.6-2.3) mg/dL Total Bilirubin (0.2-1.3) mg/dL Alkaline Phosphatase 166 H (38-126) U/L Albumin/Globulin Ratio 1.34 L (1.60-3.17) Ratio
--- NOTE | 2024-11-17 15:08 | P.CRDCN ---
History of Present Illness Consult date: 11/17/24 History of present illness: This is a 64-year-old male patient of Dr. Monreal last seen in the office in May 2024 with past medical history of coronary artery disease status post CABG, chronic systolic heart failure with previous EF of 30 to 35% in 2022, hypertension, diabetes mellitus type 2, ischemic cardiomyopathy, developmentally delayed. We have been asked to evaluate the patient for CHF. Patient states that he sometimes has shortness of breath. He denies palpitation no syncopal episodes no lightheadedness or dizziness. He denies cough or fever or chills. He denies any blood in his urine or stools. He denies history of stroke or seizure. He states he quit smoking and quit alcohol intake. He is not sure if he has been taking all of his medications. He drinks diet Pepsi on a regular basis. He follows a no added salt diet. Blood pressure 122/66, heart rate in the 70s, pulse ox 90% on room air. Patient has been started on IV Lasix 40 mg every 12 hours. -EKG: Sinus rhythm with T wave inversions. -Chest x-ray: Cardiomegaly and mild pulmonary vascular congestion. -Laboratory studies: WBC 7.5, hemoglobin 10.8, platelet count 142. BUN 32 creatinine 1.0. Initial potassium 5.2 and now 5.1. proBNP 21,100. Magnesium 2.5. -Home cardiac medications: Aspirin 81 mg daily, atorvastatin 40 mg daily, Jardiance 10 mg daily, Lasix 40 mg daily, lisinopril 5 mg daily, metoprolol succinate 25 mg daily. -Echocardiogram reveals EF of 20 to 25%, moderate mitral regurgitation, severe tricuspid regurgitation with moderate pulmonary hypertension. -Three-vessel CABG 09/01/[address] Weller with left internal thoracic artery in situ sequential to diagonal and left anterior descending coronary artery. Right greater saphenous vein from aorta to obtuse marginal artery. Review Of Systems: At the time of my exam: CONSTITUTIONAL: Denies fever or chills. HEENT: Denies blurred vision, vision changes, or eye pain. Denies hemoptysis CARDIOVASCULAR: Denies chest pain. Denies orthopnea. Denies PND. Denies palpitations RESPIRATORY: Denies shortness of breath. GASTROINTESTINAL: Denies abdominal pain. Denies nausea or vomiting. HEMATOLOGIC: Denies bleeding disorders. GENITOURINARY: Denies any blood in urine. SKIN: Denies puritis. Denies rash. Physical examination: Gen: This is 64-year-old male in no acute distress VS: reviewed HEENT: Head is atraumatic, normocephalic. Pupils equal, round. Sclerae is anicteric. NECK: Supple. No JVD. LUNGS: Clear to auscultation. No wheezes or rhonchi. No intercostal retractions. HEART: Regular rate and rhythm. No murmur. ABDOMEN: Soft No tenderness. EXTREMITIES: 1+ bilateral lower extremity edema. No calf tenderness. NEUROLOGICAL: Patient is awake, alert and oriented x3. Assessment: Acute on chronic systolic heart failure History of coronary artery disease status post three-vessel CABG in 2023 Hypertension Diabetes Ischemic cardiomyopathy Developmentally delayed Suspect noncompliance Plan: Resume patient's home cardiac medications Continue IV Lasix 40 mg every 12 hours Monitor VIKY, daily weights, electrolytes and renal function Recheck potassium tomorrow and may consider adding Aldactone Repeat BNP Consult registered dietitian for diet instructions Consult CHF nurse navigator Patient to be evaluated in the future for possible ICD implantation Further recommendations to follow based upon clinical course Thank you kindly for this consultation. Nurse practitioner note has been reviewed, I agree with documented findings and plan of care. Patient was seen and examined. Past Medical History Past Medical History: Coronary Artery Disease (CAD), Heart Failure, Diabetes Mellitus, Hyperlipidemia, Hypertension Additional Past Medical History / Comment(s): chronic systolic heart failure,cardiomyapathy,rush cataracts History of Any Multi-Drug Resistant Organisms: None Reported Past Surgical History: Heart Catheterization Additional Past Surgical History / Comment(s): Previous foot and wrist surgery Past Anesthesia/Blood Transfusion Reactions: No Reported Reaction Additional Past Anesthesia/Blood Transfusion Reaction / Comment(s): no known hx blood transfusion Past Psychological History: Anxiety, Bipolar Additional Psychological History / Comment(s): Developmentally delayed Smoking Status: Former smoker Past Alcohol Use History: Rare Additional Past Alcohol Use History / Comment(s): quit smoking 1998 approx. smoked "too many years" Past Drug Use History: None Reported - Past Family History Mother Family Medical History: COPD, Pneumonia Brother(s) Family Medical History: COPD Medications and Allergies Home Medications Medication Instructions Recorded Confirmed Type DULoxetine HCL [Cymbalta] 60 mg PO BID 08/28/23 11/16/24 History Empagliflozin [Jardiance] 10 mg PO DAILY 08/28/23 11/16/24 History busPIRone HCL 15 mg PO BID 08/28/23 11/16/24 History Aspirin 81 mg PO DAILY tab 09/24/23 11/16/24 Rx Atorvastatin [Lipitor] 40 mg PO DAILY tab 09/24/23 11/16/24 Rx Furosemide [Lasix] 40 mg PO DAILY 11/16/24 11/16/24 History Insulin Lispro [humaLOG Kwikpen] See Protocol SQ AC-TID 11/16/24 11/16/24 History Ipratropium-Albuterol Nebulize 3 ml INHALATION RT-TID 11/16/24 11/16/24 History [Duoneb 0.5 mg-3 mg/3 ml Soln] Loratadine [Claritin] 10 mg PO DAILY 11/16/24 11/16/24 History Metoprolol Succinate (ER) [Toprol 25 mg PO DAILY 11/16/24 11/16/24 History Xl] clonazePAM [KlonoPIN] 0.5 mg PO DAILY PRN 11/16/24 11/16/24 History lisinopriL [Zestril] 5 mg PO DAILY 11/16/24 11/16/24 History Allergies Allergy/AdvReac Type Severity Reaction Status Date / Time ibuprofen Allergy Unknown Verified 11/16/24 14:45 Physical Exam Vitals: Vital Signs Temp Pulse Pulse Resp BP BP BP 11/17/24 08:00 97.9 F 71 18 120/66 11/17/24 00:26 97.9 F 74 18 121/71 11/16/24 20:10 97.9 F 83 18 149/81 11/16/24 19:42 98.8 F 11/16/24 19:14 83 20 114/75 11/16/24 14:31 99 F 83 18 133/78 Pulse Ox 11/17/24 08:00 90 L 11/17/24 00:26 96 11/16/24 20:10 97 11/16/24 19:42 11/16/24 19:14 94 L 11/16/24 14:31 97 Intake and Output 11/16/24 11/17/24 11/17/24 22:59 06:59 14:59 Other: Weight 68.039 kg 83.7 kg Results 11/17/24 02:42 11/17/24 02:42 Cardiac Enzymes 11/16/24 11/17/24 Range/Units 15:21 02:42 AST 28 25 (17-59) U/L Coagulation 11/16/24 Range/Units 15:21 PT 11.6 (10.0-12.5) sec APTT 25.3 (22.0-30.0) sec CBC 11/16/24 11/17/24 Range/Units 15:21 02:42 WBC 6.97 7.50 (4.50-10.00) 10*3/uL RBC 3.67 L 3.39 L (4.40-5.60) 10*6/uL Hgb 11.8 L 10.8 L (13.0-17.0) g/dL Hct 36.5 L 34.4 L (39.6-50.0) % Plt Count 138 L 142 (140-440) 10*3/uL Comprehensive Metabolic Panel 11/16/24 11/17/24 Range/Units 15:21 02:42 Sodium 136 L 137 (137-145) mmol/L Potassium 5.2 H 5.1 (3.5-5.1) mmol/L Chloride 101 100 (98-107) mmol/L Carbon Dioxide 26 24.3 (22-30) mmol/L BUN 34 H 32.4 H (9-20) mg/dL Creatinine 0.89 1.0 (0.66-1.25) mg/dL Glucose 142 H 128 H (74-99) mg/dL Calcium 9.2 8.8 (8.4-10.2) mg/dL AST 28 25 (17-59) U/L ALT 24 23 (4-49) U/L Alkaline Phosphatase 164 H 166 H (38-126) U/L Total Protein 7.5 6.8 (6.3-8.2) g/dL Albumin 4.5 3.9 (3.5-5.0) g/dL Current Medications Generic Name Dose Route Start Last Admin Trade Name Freq PRN Reason Stop Dose Admin Albuterol/Ipratropium 3 ml 11/16/24 17:37 Ipratropium-Albuterol 3 Ml Neb INHALATION RT-TID PRN Shortness Of Breath Aspirin 81 mg 11/17/24 09:00 11/17/24 09:32 Aspirin 81 Mg PO 81 mg DAILY ZAID Administration Atorvastatin Calcium 40 mg 11/17/24 09:00 11/17/24 09:32 Atorvastatin 40 Mg Tab PO 40 mg DAILY ZAID Administration Buspirone HCl 15 mg 11/16/24 21:00 11/17/24 09:32 Buspirone Hcl 5 Mg Tab PO 15 mg BID ZAID Administration Clonazepam 0.5 mg 11/16/24 17:37 Clonazepam 0.5 Mg Tab PO DAILY PRN Anxiety Dapagliflozin 5 mg 11/17/24 09:00 11/17/24 09:32 Dapagliflozin Propanediol 5 Mg Tablet PO 5 mg DAILY ZAID Administration Dextrose/Water 25 ml 11/16/24 17:39 Dextrose 50% Syringe 50 Ml IVP PER PROTOCOL PRN Hypoglycemia Protocol Dextrose/Water 50 ml 11/16/24 17:39 Dextrose 50% Syringe 50 Ml IVP PER PROTOCOL PRN Hypoglycemia Protocol Duloxetine HCl 60 mg 11/16/24 21:00 11/17/24 09:32 Duloxetine Hcl 60 Mg Capsule.Dr PO 60 mg BID ZADI Administration Enoxaparin Sodium 40 mg 11/17/24 09:00 11/17/24 09:33 Enoxaparin 40 Mg/0.4 Ml Syringe SQ 40 mg DAILY ZAID Administration Furosemide 40 mg 11/16/24 21:00 11/17/24 09:33 Furosemide 10 Mg/Ml 4 Ml Vial IV 40 mg Q12HR ZAID Administration Insulin Human Lispro 0 unit 11/16/24 21:00 11/17/24 05:57 Insulin Lispro (Humalog) 100 Unit/Ml 10 Ml Vl SQ Not Given ACHS ZAID Protocol Lisinopril 5 mg 11/17/24 09:00 11/17/24 09:33 Lisinopril 5 Mg Tab PO 5 mg DAILY ZAID Administration Loratadine 10 mg 11/17/24 09:00 11/17/24 09:33 Loratadine 10 Mg Tab PO 10 mg DAILY ZAID Administration Metoprolol Succinate 25 mg 11/17/24 09:00 11/17/24 09:33 Metoprolol Succinate (Er) 25 Mg Tab.Er.24h PO 25 mg DAILY ZAID Administration Naloxone HCl 0.2 mg 11/16/24 16:17 Naloxone 0.4 Mg/Ml 1 Ml Vial IV Q2M PRN Opioid Reversal Intake and Output 11/16/24 11/17/24 11/17/24 22:59 06:59 14:59 Other: Weight 68.039 kg 83.7 kg 11/17/24 02:42 11/17/24 02:42
[2024-11-17 16:46] LABS: Glucose,Whole Blood 119 mg/dL (70-110)
[2024-11-17] MEDS: polyethylene glycoL 3350 17 GM POWD.PACK PO SCH (22:57)
[2024-11-18 06:07] LABS: Glucose,Whole Blood 113 mg/dL (70-110)
[2024-11-18] MEDS: DAPAGLIFLOZIN PROPANEDIOL 5 MG TABLET PO SCH (08:49)
[2024-11-18 11:01] LABS: Glucose,Whole Blood 108 mg/dL (70-110)
--- NOTE | 2024-11-18 13:32 | P.PN ---
Subjective Progress Note Date: 11/18/24 This is a 64-year-old male patient of Dr. Monreal last seen in the office in May 2024 with past medical history of coronary artery disease status post CABG, chronic systolic heart failure with previous EF of 30 to 35% in 2022, hypertension, diabetes mellitus type 2, ischemic cardiomyopathy, developmentally delayed. We have been asked to evaluate the patient for CHF. Patient states that he sometimes has shortness of breath. He denies palpitation no syncopal episodes no lightheadedness or dizziness. He denies cough or fever or chills. He denies any blood in his urine or stools. He denies history of stroke or seizure. He states he quit smoking and quit alcohol intake. He is not sure if he has been taking all of his medications. He drinks diet Pepsi on a regular basis. He follows a no added salt diet. Blood pressure 122/66, heart rate in the 70s, pulse ox 90% on room air. Patient has been started on IV Lasix 40 mg every 12 hours. -EKG: Sinus rhythm with T wave inversions. -Chest x-ray: Cardiomegaly and mild pulmonary vascular congestion. -Laboratory studies: WBC 7.5, hemoglobin 10.8, platelet count 142. BUN 32 creatinine 1.0. Initial potassium 5.2 and now 5.1. proBNP 21,100. Magnesium 2.5. -Home cardiac medications: Aspirin 81 mg daily, atorvastatin 40 mg daily, Jardia nce 10 mg daily, Lasix 40 mg daily, lisinopril 5 mg daily, metoprolol succinate 25 mg daily. -Echocardiogram reveals EF of 20 to 25%, moderate mitral regurgitation, severe tricuspid regurgitation with moderate pulmonary hypertension. -Three-vessel CABG 09/01/[address] Weller with left internal thoracic artery in situ sequential to diagonal and left anterior descending coronary artery. Right greater saphenous vein from aorta to obtuse marginal artery. 11/18/2024 Patient was seen and examined resting comfortably in bed. He is overall feeling significantly better. Vital signs have been stable. Denies any chest discomfort. Breathing is stable. Denies orthopnea or PND. Edema has improved Physical examination: Gen: This is 64-year-old male in no acute distress VS: reviewed HEENT: Head is atraumatic, normocephalic. Pupils equal, round. Sclerae is anicteric. NECK: Supple. No JVD. LUNGS: Clear to auscultation. No wheezes or rhonchi. No intercostal retractions. HEART: Regular rate and rhythm. No murmur. ABDOMEN: Soft No tenderness. EXTREMITIES: 1+ bilateral lower extremity edema. No calf tenderness. NEUROLOGICAL: Patient is awake, alert and oriented x3. Assessment: Acute on chronic systolic heart failure History of coronary artery disease status post three-vessel CABG in 2023 Hypertension Diabetes Ischemic cardiomyopathy Developmentally delayed Suspect noncompliance Plan: From cardiology's perspective medications were reviewed and we will continue the same. We will check renal function electrolytes in the morning as well as NT proBNP. If potassium level is normal may consider adding Aldactone. Patient to be evaluated in the future for possible ICD implantation Further recommendations to follow based upon clinical course Nurse practitioner note has been reviewed, I agree with documented findings and plan of care. Patient was seen and examined. Objective - Vital Signs Vital signs: Vital Signs Temp 98.2 F 11/18/24 08:00 Pulse 72 11/18/24 08:00 Resp 17 11/18/24 08:00 BP 117/66 11/18/24 08:00 Pulse Ox 96 11/18/24 08:00 FiO2 Intake & Output 11/17/24 11/18/24 11/18/24 18:59 06:59 18:59 Output Total 250 550 Balance -250 -550 Weight 84.6 kg Output: Urine 250 550 Other: # Voids 1 - Labs CBC & Chem 7: 11/17/24 02:42 11/17/24 02:42 Labs: Abnormal Lab Results - Last 24 Hours (Table) 11/17/24 11/18/24 Range/Units 16:43 06:06 POC Glucose (mg/dL) 119 H 113 H (70-110) mg/dL
[2024-11-18 14:27] VITALS: BMI 35.2
--- NOTE | 2024-11-18 16:26 | P.PN ---
Subjective Progress Note Date: 11/18/24 64 year old M with PMH of CAD with history of CABG, Anxiety and Depression, DM presents to the ED for LE swelling and exertional SOB. Symptoms progressively getting worse. 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 Monreal. Does not follow a low salt diet. Drinks 1.5L of water daily along with 1.5L of pop daily. Reports constipation. Denies any headache, N/V, fever or chills, cough, chest pain, palpitations, changes in urination. Denies dizziness, numbness/weakness/tinging of the extremities. In the ED he underwent extensive evaluation. BP 133/78, HR 83, T 99F, RR 18, 97% on RA. CBC, Coag panel, CMP significant for RBC 3.67, Hg 11.8, Hct 36.5, Plt 138, Na 136, K 5.2, BUN 34, glu 142, T. Bili 1.6, alk phos 164. BNP 37740. Mag 2.5. EKG sinus rhythm with no ST T wave changes. CXR shows pulmonary vascular congestion. Patient is admitted for CHF exacerbation. 11/17 Patient was seen and examined. Improved swelling and breathing. On Lasix 40 mg IV BID. Echo shows ED 20-25%, mod MR, severe TR. CBC and CMP significant for RBC 3.39, Hg 10.8, Hct 34.4, MCV 101.5, AG 12.7, BUN 32.4, glu 128, alk phos 166. B12 633. Folate 13.3. 11/18 Patient was seen and examined. Improved swelling and breathing. On Lasix 40 mg IV BID. No new labs done today even though ordered. General: no distress, appears at stated age Derm: warm, dry Head: atraumatic, normocephalic, symmetric Mouth: no lip lesion, mucus membranes moist Cardiovascular: S1 S2 reg. + murmur. Lungs: Decreased BS bilaterally, no accessory muscle use Ext: no gross muscle atrophy, 1-2+ pitting LE edema, no contractures Neuro: No focal neurologic deficits. Psych: Alert and oriented. Based on my assessment of this patient, this patient meets a high complexity lev el of care. Acute on chronic systolic CHF exacerbation: EF 20-25% 08/2023. Continue Lasix 40 mg IV BID (monitor renal function and elytes). Strict intake and outtake. Daily weights. Jardiance 10 mg PO QD. Lisinopril 5 mg PO QD. Metoprolol 25 mg PO QD. Cardiology on board. Prerenal azotemia: Monitor renal function while on Lasix IV. CAD with history of CABG: ASA 81 mg PO QD. Lipitor 40 mg PO QD. Anxiety and Depression: Buspar 15 mg PO BID. Cymbalta 60 mg PO BID. Klonopin 0.5 mg PO BID PRN. DM: ISS with accuchecks ACHS along with hypoglycemic precautions. Macrocytosis: B12 and Folate within normal limits. Resolved: Hyperbilirubinemia, HyperK CODE STATUS: FULL CODE DVT Prophylaxis: Lovenox SQ. GI Prophylaxis: Designated medical POA if patient is not able to make medical decisions for the mselves: I have reviewed the following artist consultant notes: Cardiology. I have reviewed the results of the following tests: I have ordered the following tests: BMP in the AM. I have discussed the care of this patient with the following independent historian: I have independently interpreted the following test below: I have discussed the management of this patient with the following physician: Objective - Vital Signs Vital signs: Vital Signs Temp 97.3 F L 11/18/24 14:00 Pulse 89 11/18/24 14:00 Resp 16 11/18/24 14:00 BP 106/61 11/18/24 14:00 Pulse Ox 92 L 11/18/24 14:00 FiO2 Intake & Output 11/17/24 11/18/24 11/18/24 18:59 06:59 18:59 Output Total 250 550 Balance -250 -550 Weight 84.6 kg 84.6 kg Output: Urine 250 550 Other: # Voids 1 - Labs CBC & Chem 7: 11/17/24 02:42 11/17/24 02:42 Labs: Abnormal Lab Results - Last 24 Hours (Table) 11/17/24 11/18/24 Range/Units 16:43 06:06 POC Glucose (mg/dL) 119 H 113 H (70-110) mg/dL
[2024-11-19 04:05] LABS: African American GFR (CKD) 68 (>60 ml/min/1.73 sqM); Anion Gap 9 mmol/L; Blood Urea Nitrogen 42 mg/dL (9-20); Calcium 8.9 mg/dL (8.4-10.2); Carbon Dioxide 29 mmol/L (22-30); Chloride 95 mmol/L (98-107); Glucose 122 mg/dL (74-99); Non-African American GFR(CKD) 59 (>60 ml/min/1.73 sqM); Potassium 4.6 mmol/L (3.5-5.1); Sodium 133 mmol/L (137-145)
[2024-11-19 04:12] LABS: NT-Pro-B-Type Natriuretic Pept 24900 pg/mL
[2024-11-19] MEDS: SPIRONOLACTONE 25 MG TAB PO SCH (12:43)
--- NOTE | 2024-11-19 13:18 | P.PN ---
Subjective Progress Note Date: 11/19/24 64 year old M with PMH of CAD with history of CABG, Anxiety and Depression, DM presents to the ED for LE swelling and exertional SOB. Symptoms progressively getting worse. Sand Hauler is Dr. Monreal. Does not follow a low salt diet. Drinks 1.5L of water daily along with 1.5L of pop daily. Reports constipation. Denies any headache, N/V, fever or chills, cough, chest pain, palpitations, changes in urination. Denies dizziness, numbness/weakness/tinging of the extremities. In the ED he underwent extensive evaluation. BP 133/78, HR 83, T 99F, RR 18, 97% on RA. CBC, Coag panel, CMP significant for RBC 3.67, Hg 11.8, Hct 36.5, Plt 138, Na 136, K 5.2, BUN 34, glu 142, T. Bili 1.6, alk phos 164. BNP 66258. Mag 2.5. EKG sinus rhythm with no ST T wave changes. CXR shows pulmonary vascular congestion. Patient is admitted for CHF exacerbation. 11/17 Patient was seen and examined. Improved swelling and breathing. On Lasix 40 mg IV BID. Echo shows ED 20-25%, mod MR, severe TR. CBC and CMP significant for RBC 3.39, Hg 10.8, Hct 34.4, MCV 101.5, AG 12.7, BUN 32.4, glu 128, alk phos 166. B12 633. Folate 13.3. 11/18 Patient was seen and examined. Improved swelling and breathing. On Lasix 40 mg IV BID. No new labs done today even though ordered. 11/19 Patient was seen and examined. Slowly improving LE swelling and breathing. On Lasix 40 mg IV BID. Accurate Ins and Outs not recorded. BMP shows Na 133, Cl 95, BUN 42, Cr 1.3, glu 122. BNP 45090. General: no distress, appears at stated age Derm: warm, dry Head: atraumatic, normocephalic, symmetric Mouth: no lip lesion, mucus membranes moist Cardiovascular: S1 S2 reg. + murmur. Lungs: Decreased BS bilaterally, no accessory muscle use Ext: no gross muscle atrophy, 1-2+ pitting LE edema, no contractures Neuro: No focal neurologic deficits. Psych: Alert and oriented. Based on my assessment of this patient, this patient meets a high complexity le rahel of care. Acute on chronic systolic CHF exacerbation: EF 20-25% 08/2023. Continue Lasix 40 mg IV BID (monitor renal function and elytes). Strict intake and outtake. Daily weights. Farxiga 10 mg PO QD. Lisinopril 5 mg PO QD. Metoprolol 25 mg PO QD. + Aldactone 25 mg PO QD. Cardiology considering AICD. Cardiology on board. LEONARDO with hyponatremia: Likely due to use of lasix. Monitor renal function and e- lytes while on Lasix IV. CAD with history of CABG: ASA 81 mg PO QD. Lipitor 40 mg PO QD. Anxiety and Depression: Buspar 15 mg PO BID. Cymbalta 60 mg PO BID. Klonopin 0.5 mg PO BID PRN. DM: ISS with accuchecks ACHS along with hypoglycemic precautions. Macrocytosis: B12 and Folate within normal limits. Resolved: Hyperbilirubinemia, HyperK CODE STATUS: FULL CODE DVT Prophylaxis: Lovenox SQ. GI Prophylaxis: Designated medical POA if patient is not able to make medical decisions for themselves: I have reviewed the following apartment leasing consultant notes: Cardiology. I have reviewed the results of the following tests: BMP. I have ordered the following tests: BMP in the AM. I have discussed the care of this patient with the following independent historian: I have independently interpreted the following test below: I have discussed the management of this patient with the following physician: Objective - Vital Signs Vital signs: Vital Signs Temp 97.6 F 11/19/24 07:50 Pulse 95 11/19/24 07:50 Resp 17 11/19/24 07:50 BP 112/64 11/19/24 07:50 Pulse Ox 98 11/19/24 07:50 FiO2 Intake & Output 11/18/24 11/19/24 11/19/24 18:59 06:59 18:59 Intake Total 540 Balance 540 Weight 84.6 kg Intake: Oral 540 Other: Voiding Method Toilet Urinal # Voids 3 - Labs CBC & Chem 7: 11/17/24 02:42 11/19/24 02:48 Labs: Abnormal Lab Results - Last 24 Hours (Table) 11/19/24 Range/Units 02:48 Sodium 133 L (137-145) mmol/L Chloride 95 L (98-107) mmol/L BUN 42 H (9-20) mg/dL Creatinine 1.30 H (0.66-1.25) mg/dL Glucose 122 H (74-99) mg/dL
--- NOTE | 2024-11-19 13:53 | P.PN ---
Subjective Progress Note Date: 11/19/24 This is a 64-year-old male patient of Dr. Monreal last seen in the office in May 2024 with past medical history of coronary artery disease status post CABG, chronic systolic heart failure with previous EF of 30 to 35% in 2022, hypertension, diabetes mellitus type 2, ischemic cardiomyopathy, developmentally delayed. We have been asked to evaluate the patient for CHF. Patient states that he sometimes has shortness of breath. He denies palpitation no syncopal episodes no lightheadedness or dizziness. He denies cough or fever or chills. He denies any blood in his urine or stools. He denies history of stroke or seizure. He states he quit smoking and quit alcohol intake. He is not sure if he has been taking all of his medications. He drinks diet Pepsi on a regular basis. He follows a no added salt diet. Blood pressure 122/66, heart rate in the 70s, pulse ox 90% on room air. Patient has been started on IV Lasix 40 mg every 12 hours. -EKG: Sinus rhythm with T wave inversions. -Chest x-ray: Cardiomegaly and mild pulmonary vascular congestion. -Laboratory studies: WBC 7.5, hemoglobin 10.8, platelet count 142. BUN 32 creatinine 1.0. Initial potassium 5.2 and now 5.1. proBNP 21,100. Magnesium 2.5. -Home cardiac medications: Aspirin 81 mg daily, atorvastatin 40 mg daily, Jardi ance 10 mg daily, Lasix 40 mg daily, lisinopril 5 mg daily, metoprolol succinate 25 mg daily. -Echocardiogram reveals EF of 20 to 25%, moderate mitral regurgitation, severe tricuspid regurgitation with moderate pulmonary hypertension. -Three-vessel CABG 09/01/[address] Weller with left internal thoracic artery in situ sequential to diagonal and left anterior descending coronary artery. Right greater saphenous vein from aorta to obtuse marginal artery. 11/18/2024 Patient was seen and examined resting comfortably in bed. He is overall feeling significantly better. Vital signs have been stable. Denies any chest discomfort. Breathing is stable. Denies orthopnea or PND. Edema has improved 11/19/2014 Patient seen and examined. Patient states he has slight episode of chest pain but none now. He states he has been out of bed. His edema is improved. He has been on IV Lasix 40 mg every 12 hours. Blood pressure 112/64, heart rate 95, pulse ox 98% on room air. Repeat blood work reveals sodium 133, potassium 4.6, BUN 42 and creatinine 1.3. proBNP 24,900. Physical examination: Gen: This is 64-year-old male in no acute distress VS: reviewed HEENT: Head is atraumatic, normocephalic. Pupils equal, round. Sclerae is anicteric. NECK: Supple. No JVD. LUNGS: Clear to auscultation. No wheezes or rhonchi. No intercostal retractions. HEART: Regular rate and rhythm. No murmur. ABDOMEN: Soft No tenderness. EXTREMITIES: 1+ bilateral lower extremity edema. No calf tenderness. NEUROLOGICAL: Patient is awake, alert and oriented x3. Assessment: Acute on chronic systolic heart failure History of coronary artery disease status post three-vessel CABG in 2023 Hypertension Diabetes Ischemic cardiomyopathy Developmentally delayed Suspect noncompliance Plan: Continue IV Lasix 40 mg every 12 hours for another day Add spironolactone 25 mg daily Repeat BMP in the morning Patient to be evaluated in the future for possible ICD implantation Add consult for physical therapy to get patient moving and out of bed Further recommendations to follow based upon clinical course Nurse practitioner note has been reviewed, I agree with documented findings and plan of care. Patient was seen and examined. Objective - Vital Signs Vital signs: Vital Signs Temp 97.6 F 11/19/24 07:50 Pulse 95 11/19/24 07:50 Resp 17 11/19/24 07:50 BP 112/64 11/19/24 07:50 Pulse Ox 98 11/19/24 07:50 FiO2 Intake & Output 11/18/24 11/19/24 11/19/24 18:59 06:59 18:59 Intake Total 540 Balance 540 Weight 84.6 kg Intake: Oral 540 Other: Voiding Method Toilet Urinal # Voids 3 - Labs CBC & Chem 7: 11/17/24 02:42 11/19/24 02:48 Labs: Abnormal Lab Results - Last 24 Hours (Table) 11/19/24 Range/Units 02:48 Sodium 133 L (137-145) mmol/L Chloride 95 L (98-107) mmol/L BUN 42 H (9-20) mg/dL Creatinine 1.30 H (0.66-1.25) mg/dL Glucose 122 H (74-99) mg/dL
--- NOTE | 2024-11-20 08:18 | XR ---
EXAMINATION TYPE: XR chest 1V portable DATE OF EXAM: 11/20/2024 7:10 AM COMPARISON: 11/16/2024 CLINICAL INDICATION: Male, 64 years old with history of CHF, TECHNIQUE: XR chest 1V portable view(s) obtained. FINDINGS: The heart size is enlarged. The pulmonary vasculature is normal. There appears to be some thickening of fluid along the right pleural margin. Small left pleural effus ion is likely present IMPRESSION: 1. Cardiomegaly. 2. Bilateral pleural effusions [facility], , 11/20/2024 8:16 AM
[2024-11-20 10:26] LABS: Blood Urea Nitrogen 35.1 mg/dL (9.0-27.0); Calcium 8.5 mg/dL (8.7-10.3); Carbon Dioxide 28.7 mmol/L (21.6-31.8); Chloride 97 mmol/L (96-109); Glucose 143 mg/dL (70-110); Potassium 4.6 mmol/L (3.5-5.5); Sodium 136 mmol/L (135-145)
--- NOTE | 2024-11-20 11:43 | P.PN ---
Subjective Progress Note Date: 11/20/24 This is a 64-year-old male patient of Dr. Monreal last seen in the office in May 2024 with past medical history of coronary artery disease status post CABG, chronic systolic heart failure with previous EF of 30 to 35% in 2022, hypertension, diabetes mellitus type 2, ischemic cardiomyopathy, developmentally delayed. We have been asked to evaluate the patient for CHF. Patient states that he sometimes has shortness of breath. He denies palpitation no syncopal episodes no lightheadedness or dizziness. He denies cough or fever or chills. He denies any blood in his urine or stools. He denies history of stroke or seizure. He states he quit smoking and quit alcohol intake. He is not sure if he has been taking all of his medications. He drinks diet Pepsi on a regular basis. He follows a no added salt diet. Blood pressure 122/66, heart rate in the 70s, pulse ox 90% on room air. Patient has been started on IV Lasix 40 mg every 12 hours. -EKG: Sinus rhythm with T wave inversions. -Chest x-ray: Cardiomegaly and mild pulmonary vascular congestion. -Laboratory studies: WBC 7.5, hemoglobin 10.8, platelet count 142. BUN 32 creatinine 1.0. Initial potassium 5.2 and now 5.1. proBNP 21,100. Magnesium 2.5. -Home cardiac medications: Aspirin 81 mg daily, atorvastatin 40 mg daily, Jardi ance 10 mg daily, Lasix 40 mg daily, lisinopril 5 mg daily, metoprolol succinate 25 mg daily. -Echocardiogram reveals EF of 20 to 25%, moderate mitral regurgitation, severe tricuspid regurgitation with moderate pulmonary hypertension. -Three-vessel CABG 09/01/[address] Weller with left internal thoracic artery in situ sequential to diagonal and left anterior descending coronary artery. Right greater saphenous vein from aorta to obtuse marginal artery. 11/18/2024 Patient was seen and examined resting comfortably in bed. He is overall feeling significantly better. Vital signs have been stable. Denies any chest discomfort. Breathing is stable. Denies orthopnea or PND. Edema has improved 11/19/2014 Patient seen and examined. Patient states he has slight episode of chest pain but none now. He states he has been out of bed. His edema is improved. He has been on IV Lasix 40 mg every 12 hours. Blood pressure 112/64, heart rate 95, pulse ox 98% on room air. Repeat blood work reveals sodium 133, potassium 4.6, BUN 42 and creatinine 1.3. proBNP 24,900. 08/20/2024 Patient seen and examined. He has been maintained on IV Lasix 40 mg every 12 hours and yesterday we added and spironolactone. He continues to have lower extremity edema but improved. Repeat blood work reveals BUN 35, creatinine 1.3, potassium 4.6. Repeat chest x-ray reveals cardiomegaly. Bilateral pleural effusions. Blood pressure 109/63, heart rate 63, pulse ox 97% on 2 L nasal cannula. Physical examination: Gen: This is 64-year-old male in no acute distress VS: reviewed HEENT: Head is atraumatic, normocephalic. Pupils equal, round. Sclerae is anicteric. NECK: Supple. No JVD. LUNGS: Clear to auscultation. No wheezes or rhonchi. No intercostal retractions. HEART: Regular rate and rhythm. No murmur. ABDOMEN: Soft No tenderness. EXTREMITIES: 1+ bilateral lower extremity edema. No calf tenderness. NEUROLOGICAL: Patient is awake, alert and oriented x3. Assessment: Acute on chronic systolic heart failure History of coronary artery disease status post three-vessel CABG in 2023 Hypertension Diabetes Ischemic cardiomyopathy Developmentally delayed Suspect noncompliance Plan: Continue IV Lasix 40 mg every 12 hours for another day Continue the addition of spironolactone 25 mg daily Repeat BMP in the morning Patient to be evaluated in the future for possible ICD implantation Further recommendations to follow based upon clinical course Nurse practitioner note has been reviewed, I agree with documented findings and plan of care. Patient was seen and examined. Objective - Vital Signs Vital signs: Vital Signs Temp 98.1 F 11/20/24 01:47 Pulse 69 11/20/24 01:47 Resp 17 11/20/24 01:47 BP 104/58 11/20/24 01:47 Pulse Ox 92 L 11/20/24 01:47 FiO2 Intake & Output 11/19/24 11/20/24 11/20/24 18:59 06:59 18:59 Output Total 1100 1250 Balance -1100 -1250 Weight 78.1 kg Output: Urine 1100 1250 Other: Voiding Method Toilet Urinal # Voids 1 - Labs CBC & Chem 7: 11/17/24 02:42 11/20/24 07:08
--- NOTE | 2024-11-20 14:10 | P.PN ---
Subjective Progress Note Date: 11/20/24 64 year old M with PMH of CAD with history of CABG, Anxiety and Depression, DM presents to the ED for LE swelling and exertional SOB. Symptoms progressively getting worse. Collection Systems Consultant is Dr. Monreal. Does not follow a low salt diet. Drinks 1.5L of water daily along with 1.5L of pop daily. Reports constipation. Denies any headache, N/V, fever or chills, cough, chest pain, palpitations, changes in urination. Denies dizziness, numbness/weakness/tinging of the extremities. In the ED he underwent extensive evaluation. BP 133/78, HR 83, T 99F, RR 18, 97% on RA. CBC, Coag panel, CMP significant for RBC 3.67, Hg 11.8, Hct 36.5, Plt 138, Na 136, K 5.2, BUN 34, glu 142, T. Bili 1.6, alk phos 164. BNP 74522. Mag 2.5. EKG sinus rhythm with no ST T wave changes. CXR shows pulmonary vascular congestion. Patient is admitted for CHF exacerbation. 11/17 Patient was seen and examined. Improved swelling and breathing. On Lasix 40 mg IV BID. Echo shows ED 20-25%, mod MR, severe TR. CBC and CMP significant for RBC 3.39, Hg 10.8, Hct 34.4, MCV 101.5, AG 12.7, BUN 32.4, glu 128, alk phos 166. B12 633. Folate 13.3. 11/18 Patient was seen and examined. Improved swelling and breathing. On Lasix 40 mg IV BID. No new labs done today even though ordered. 11/19 Patient was seen and examined. Slowly improving LE swelling and breathing. On Lasix 40 mg IV BID. Accurate Ins and Outs not recorded. BMP shows Na 133, Cl 95, BUN 42, Cr 1.3, glu 122. BNP 28185. 11/20 Patient was seen and examined. Doing well. CXR done shows slightly improved pulmonary vascular congestion. Maintained on Lasix 40 mg IV BID. BMP shows BUN 35.1, Cr 1.3, glu 143, Ca 8.5. General: no distress, appears at stated age Derm: warm, dry Head: atraumatic, normocephalic, symmetric Mouth: no lip lesion, mucus membranes moist Cardiovascular: S1 S2 reg. + murmur. Lungs: Decreased BS bilaterally, no accessory muscle use Ext: no gross muscle atrophy, 1-2+ pitting LE edema, no contractures Neuro: No focal neurologic deficits. Psych: Alert and oriented. Based on my assessment of this patient, this patient meets a high complexity level of care. Acute on chronic systolic CHF exacerbation: EF 20-25% 08/2023. Continue Lasix 40 mg IV BID (monitor renal function and elytes). Strict intake and outtake. Daily weights. Farxiga 10 mg PO QD. Lisinopril 5 mg PO QD. Metoprolol 25 mg PO QD. Aldactone 25 mg PO QD. Cardiology considering AICD. Cardiology on board. LEONARDO: Likely due to use of lasix. Monitor renal function and e-lytes while on Lasix IV. CAD with history of CABG: ASA 81 mg PO QD. Lipitor 40 mg PO QD. Anxiety and Depression: Buspar 15 mg PO BID. Cymbalta 60 mg PO BID. Klonopin 0.5 mg PO BID PRN. DM: ISS with accuchecks ACHS along with hypoglycemic precautions. Macrocytosis: B12 and Folate within normal limits. Resolved: Hyperbilirubinemia, HyperK, HypoNa Cardiology recommends continued diuresis. CODE STATUS: FULL CODE DVT Prophylaxis: Lovenox SQ. GI Prophylaxis: Designated medical POA if patient is not able to make medical decisions for themselves: I have reviewed the following databases computer consultant notes: Cardiology. I have reviewed the results of the following tests: BMP. I have ordered the following tests: BMP in the AM. I have discussed the care of this patient with the following independent historian: I have independently interpreted the following test below: CXR I have discussed the management of this patient with the following physician: Objective - Vital Signs Vital signs: Vital Signs Temp 97.9 F 11/20/24 07:00 Pulse 63 11/20/24 07:00 Resp 18 11/20/24 07:00 BP 109/63 11/20/24 07:00 Pulse Ox 97 11/20/24 07:00 FiO2 Intake & Output 11/19/24 11/20/24 11/20/24 18:59 06:59 18:59 Output Total 1100 1250 Balance -1100 -1250 Weight 78.1 kg Output: Urine 1100 1250 Other: Voiding Method Toilet Urinal # Voids 1 1 - Labs CBC & Chem 7: 11/17/24 02:42 11/20/24 07:08 Labs: Abnormal Lab Results - Last 24 Hours (Table) 11/20/24 Range/Units 07:08 BUN 35.1 H (9.0-27.0) mg/dL BUN/Creatinine Ratio 27.00 H (12.00-20.00) Ratio Glucose 143 H (70-110) mg/dL Calcium 8.5 L (8.7-10.3) mg/dL
[2024-11-21 01:44] VITALS: PULSE 83
[2024-11-21 08:23] LABS: African American GFR (CKD) 80 (>60 ml/min/1.73 sqM); Anion Gap 5 mmol/L; Blood Urea Nitrogen 36 mg/dL (9-20); Calcium 8.7 mg/dL (8.4-10.2); Carbon Dioxide 33 mmol/L (22-30); Chloride 95 mmol/L (98-107); Glucose 92 mg/dL (74-99); Non-African American GFR(CKD) 69 (>60 ml/min/1.73 sqM); Potassium 4.5 mmol/L (3.5-5.1); Sodium 133 mmol/L (137-145)
[2024-11-21 09:22] VITALS: BP 106/63; RESP 19; TEMP 97.4
--- NOTE | 2024-11-21 10:37 | P.PN ---
Subjective HISTORY OF PRESENT ILLNESS: This is a 64-year-old male patient of Dr. Monreal last seen in the office in May 2024 with past medical history of coronary artery disease status post CABG, chronic systolic heart failure with previous EF of 30 to 35% in 2022, hypertension, diabetes mellitus type 2, ischemic cardiomyopathy, developmentally delayed. We have been asked to evaluate the patient for CHF. Patient states that he sometimes has shortness of breath. He denies palpitation no syncopal episodes no lightheadedness or dizziness. He denies cough or fever or chills. He denies any blood in his urine or stools. He denies history of stroke or seizure. He states he quit smoking and quit alcohol intake. He is not sure if he has been taking all of his medications. He drinks diet Pepsi on a regular basis. He follows a no added salt diet. Blood pressure 122/66, heart rate in the 70s, pulse ox 90% on room air. Patient has been started on IV Lasix 40 mg every 12 hours. -EKG: Sinus rhythm with T wave inversions. -Chest x-ray: Cardiomegaly and mild pulmonary vascular congestion. -Laboratory studies: WBC 7.5, hemoglobin 10.8, platelet count 142. BUN 32 creatinine 1.0. Initial potassium 5.2 and now 5.1. proBNP 21,100. Magnesium 2.5. -Home cardiac medications: Aspirin 81 mg daily, atorvastatin 40 mg daily, Jardiance 10 mg daily, Lasix 40 mg daily, lisinopril 5 mg daily, metoprolol succinate 25 mg daily. -Echocardiogram reveals EF of 20 to 25%, moderate mitral regurgitation, severe tricuspid regurgitation with moderate pulmonary hypertension. -Three-vessel CABG 09/01/[address] Weller with left internal thoracic artery in situ sequential to diagonal and left anterior descending coronary artery. Right greater saphenous vein from aorta to obtuse marginal artery. 11/18/2024 Patient was seen and examined resting comfortably in bed. He is overall feeling significantly better. Vital signs have been stable. Denies any chest discomfort. Breathing is stable. Denies orthopnea or PND. Edema has improved 11/19/2014 Patient seen and examined. Patient states he has slight episode of chest pain but none now. He states he has been out of bed. His edema is improved. He has been on IV Lasix 40 mg every 12 hours. Blood pressure 112/64, heart rate 95, pulse ox 98% on room air. Repeat blood work reveals sodium 133, potassium 4.6, BUN 42 and creatinine 1.3. proBNP 24,900. 11/20/2024 Patient seen and examined. He has been maintained on IV Lasix 40 mg every 12 hours and yesterday we added and spironolactone. He continues to have lower extremity edema but improved. Repeat blood work reveals BUN 35, creatinine 1.3, potassium 4.6. Repeat chest x-ray reveals cardiomegaly. Bilateral pleural effusions. Blood pressure 109/63, heart rate 63, pulse ox 97% on 2 L nasal cannula. 11/21/2024 Patient examined this morning the bedside. Patient currently denies chest pain or pressure. He denies shortness of breath. He remains on IV Lasix. He reports improvement in his lower extremity edema. PHYSICAL EXAM: VITAL SIGNS: Reviewed. GENERAL: Well-developed in no acute distress. NECK: Supple. No JVD or thyromegaly LUNGS: Respirations even and unlabored. Lungs essentially clear to auscultation bilaterally. HEART: Regular rate and rhythm. S1 and S2 heard. EXTREMITIES: Normal range of motion. No clubbing or cyanosis. Peripheral pulses intact. No lower extremity edema ASSESSMENT: Acute on chronic systolic heart failure, 2024% History of coronary artery disease status post three-vessel CABG in 2023 Hypertension Diabetes Ischemic cardiomyopathy Developmentally delayed Suspect noncompliance PLAN: Discontinue IV Lasix. Begin oral Lasix 40 mg twice a day Continue additional cardiac medications Patient to be evaluated in the future for possible ICD implantation Patient is stable from a cardiac standpoint Patient to follow-up postdischarge in the office with Dr. Monreal Nurse practitioner note has been reviewed by physician. Signing provider agrees with the documented findings, assessment, and plan of care documented by CHOCOLATE FINISHER OPERATOR as a scribe. Objective - Vital Signs Vital signs: Vital Signs Temp 97.4 F L 11/21/24 07:20 Pulse 83 11/21/24 07:20 Resp 19 11/21/24 07:20 BP 106/63 11/21/24 07:20 Pulse Ox 99 11/21/24 07:20 FiO2 Intake & Output 11/20/24 11/21/24 11/21/24 18:59 06:59 18:59 Other: # Voids 1 3 - Labs CBC & Chem 7: 11/17/24 02:42 11/21/24 07:34 Labs: Abnormal Lab Results - Last 24 Hours (Table) 11/21/24 Range/Units 07:34 Sodium 133 L (137-145) mmol/L Chloride 95 L (98-107) mmol/L Carbon Dioxide 33 H (22-30) mmol/L BUN 36 H (9-20) mg/dL
--- NOTE | 2024-11-21 11:57 | P.DS ---
Providers Date of admission: 11/16/24 16:19 Expected date of discharge: 11/21/24 Attending physician: Abhishek Workman MD Consults: 11/16/24 16:17 Consult Physician Routine Consulting Provider: [facility] Consult Reason/Comments: chf Do you want consulting provider notified?: Yes Primary care physician: Stated None Hospital Course: 64 year old M with PMH of CAD with history of CABG, Anxiety and Depression, DM presents to the ED for LE swelling and exertional SOB. Symptoms progressively getting worse. Elementary Spanish Teacher is Dr. Monreal. Does not follow a low salt diet. Drinks 1.5L of water daily along with 1.5L of pop daily. Reports constipation. Denies any headache, N/V, fever or chills, cough, chest pain, palpitations, changes in urination. Denies dizziness, numbness/weakness/tinging of the extremities. In the ED he underwent extensive evaluation. BP 133/78, HR 83, T 99F, RR 18, 97% on RA. CBC, Coag panel, CMP significant for RBC 3.67, Hg 11.8, Hct 36.5, Plt 138, Na 136, K 5.2, BUN 34, glu 142, T. Bili 1.6, alk phos 164. BNP 85877. Mag 2.5. EKG sinus rhythm with no ST T wave changes. CXR shows pulmonary vascular congestion. Patient is admitted for CHF exacerbation. 11/17 Patient was seen and examined. Improved swelling and breathing. On Lasix 40 mg IV BID. Echo shows ED 20-25%, mod MR, severe TR. CBC and CMP significant for RBC 3.39, Hg 10.8, Hct 34.4, MCV 101.5, AG 12.7, BUN 32.4, glu 128, alk phos 166. B12 633. Folate 13.3. 11/18 Patient was seen and examined. Improved swelling and breathing. On Lasix 40 mg IV BID. No new labs done today even though ordered. 11/19 Patient was seen and examined. Slowly improving LE swelling and breathing. On Lasix 40 mg IV BID. Accurate Ins and Outs not recorded. BMP shows Na 133, Cl 95, BUN 42, Cr 1.3, glu 122. BNP 24401. 11/20 Patient was seen and examined. Doing well. CXR done shows slightly improved pulmonary vascular congestion. Maintained on Lasix 40 mg IV BID. BMP shows BUN 35.1, Cr 1.3, glu 143, Ca 8.5. 11/21 Patient was seen and examined. Doing well. Maintained on Lasix 40 mg IV BID. BMP shows Na 133, Cl 95, bicarb 33, BUN 36. Discharge Plan: Home O2 eval prior to discharge discussed with RN. New prescription for Aldactone sent to pharmacy along with increased dosing for Lasix 40 mg PO BID. Follow up with Cardiology within 1 week for evaluation of AICD. Follow up with PCP within 1-2 days of discharge. Discussed low salt diet and 1.5 L fluid restriction. General: no distress, appears at stated age Derm: warm, dry Head: atraumatic, normocephalic, symmetric Mouth: no lip lesion, mucus membranes moist Cardiovascular: S1 S2 reg. + murmur. Lungs: Decreased BS bilaterally, no accessory muscle use Ext: no gross muscle atrophy, 1-2+ pitting LE edema, no contractures Neuro: No focal neurologic deficits. Psych: Alert and oriented. Discharge Diagnosis: Acute on chronic systolic CHF exacerbation LEONARDO likely due to forced diuresis HypoCl hypoNa with metabolic alkalosis likely due to forced diuresis CAD with history of CABG Anxiety and Depression DM Macrocytosis Resolved: Hyperbilirubinemia, HyperK This complex discharge took 35 minutes to complete. Patient Condition at Discharge: Stable Plan - Discharge Summary New Discharge Prescriptions: New Furosemide [Lasix] 40 mg PO BID@0900,1600 #60 tab Spironolactone [Aldactone] 25 mg PO DAILY #30 tab Continue Aspirin 81 mg PO DAILY tab Atorvastatin [Lipitor] 40 mg PO DAILY tab Loratadine [Claritin] 10 mg PO DAILY lisinopriL [Zestril] 5 mg PO DAILY clonazePAM [KlonoPIN] 0.5 mg PO DAILY PRN PRN Reason: Anxiety Metoprolol Succinate (ER) [Toprol XL] 25 mg PO DAILY Insulin Lispro [humaLOG Kwikpen] See Protocol SQ AC-TID Empagliflozin [Jardiance] 10 mg PO DAILY DULoxetine HCL [Cymbalta] 60 mg PO BID busPIRone HCL 15 mg PO BID Ipratropium-Albuterol Nebulize [Duoneb 0.5 mg-3 mg/3 ml Soln] 3 ml INHALATION RT-TID Discontinued Furosemide [Lasix] 40 mg PO DAILY Discharge Medication List DULoxetine HCL [Cymbalta] 60 mg PO BID 08/28/23 [History] Empagliflozin [Jardiance] 10 mg PO DAILY 08/28/23 [History] busPIRone HCL 15 mg PO BID 08/28/23 [History] Aspirin 81 mg PO DAILY tab 09/24/23 [Rx] Atorvastatin [Lipitor] 40 mg PO DAILY tab 09/24/23 [Rx] Insulin Lispro [humaLOG Kwikpen] See Protocol SQ AC-TID 11/16/24 [History] Ipratropium-Albuterol Nebulize [Duoneb 0.5 mg-3 mg/3 ml Soln] 3 ml INHALATION RT-TID 11/16/24 [History] Loratadine [Claritin] 10 mg PO DAILY 11/16/24 [History] Metoprolol Succinate (ER) [Toprol XL] 25 mg PO DAILY 11/16/24 [History] clonazePAM [KlonoPIN] 0.5 mg PO DAILY PRN 11/16/24 [History] lisinopriL [Zestril] 5 mg PO DAILY 11/16/24 [History] Furosemide [Lasix] 40 mg PO BID@0900,1600 #60 tab 11/21/24 [Rx] Spironolactone [Aldactone] 25 mg PO DAILY #30 tab 11/21/24 [Rx] Follow up Appointment(s)/Referral(s): Tutu Gallegos MD [STAFF PHYSICIAN] - 1 Week [facility], [NON-STAFF] - [facility] [NON-STAFF] - 1 Week Activity/Diet/Wound Care/Special Instructions: Diet: Cardiac. Low salt. 1.5L fluid restriction. Discharge Disposition: HOME SELF-CARE
[2024-11-21] MEDS ORDERED: FUROSEMIDE 40 MG TAB PO SCH (16:00)
== END 2024-11-21 13:51 | disposition home health service (06) | DRG 291 ==
LOC: EC 14:23 → 4SSUR 16:18 → OBSVTOIN 16:19 → 4SSUR 17:23
PROVIDERS: ADMIT Family Medicine; ATTEND Family Medicine
DX: I11.0 Hypertensive heart disease with heart failure (principal); I50.23 Acute on chronic systolic (congestive) heart failure; E87.3 Alkalosis; E87.1 Hypo-osmolality and hyponatremia; N17.9 Acute kidney failure, unspecified; I27.20 Pulmonary hypertension, unspecified; K76.1 Chronic passive congestion of liver; E11.9 Type 2 diabetes mellitus without complications; F31.9 Bipolar disorder, unspecified; I08.1 Rheumatic disorders of both mitral and tricuspid valves; Z79.4 Long term (current) use of insulin; D75.89 Other specified diseases of blood and blood-forming organs; E78.5 Hyperlipidemia, unspecified; E87.5 Hyperkalemia; F41.9 Anxiety disorder, unspecified; I25.10 Atherosclerotic heart disease of native coronary artery without angina pectoris; I25.5 Ischemic cardiomyopathy; R62.50 Unspecified lack of expected normal physiological development in childhood; T50.2X5A Adverse effect of carbonic-anhydrase inhibitors, benzothiadiazides and other diuretics, initial encounter; Z95.1 Presence of aortocoronary bypass graft; Z79.82 Long term (current) use of aspirin; Z88.6 Allergy status to analgesic agent; Z87.891 Personal history of nicotine dependence; Z79.02 Long term (current) use of antithrombotics/antiplatelets; Z79.84 Long term (current) use of oral hypoglycemic drugs; Z79.899 Other long term (current) drug therapy
CPT/HCPCS: 36415; 71045; 71046; 80048; 80053; 82607; 82746; 83735; 83880; 85025; 85610; 85730; 93005; 93306; 94760; 96374; 99285